=== PATIENT | female | born 1965 | race Caucasian/White ===

== ENCOUNTER 2019-05-27 01:08 | Outpatient (CLI) | payer MEDICAID, SELFPAY ==
--- NOTE | 2019-05-27 14:35 | DI.MRI_ITS ---
SYMPTOMS/DIAGNOSIS: LOW BACK AND TAILBONE PAIN X 6 YEARS, M54.5, BILATERAL HIP PAIN LUMBAR MRI: Sagittal T1 and T2, and sagittal STIR, and axial T1 and T2, and axial MSMA and T1 coronal pulse sequences were performed. The bony signal is unremarkable. Diminished signal is noted in the lumbar discs, compatible with partial desiccation. At L1-2, there is no evidence of a disc herniation. There are mild facet joint degenerative changes and no evidence of spinal stenosis. At L2-3, there is no evidence of a disc herniation, mild facet joint DJD is identified and there is no evidence of spinal stenosis. At L3-4, there is no evidence of a disc herniation. Mild facet joint DJD is identified and there is no evidence of spinal stenosis. At L4-5, there is no disc herniation. There are moderate facet joint degenerative changes and no evidence of spinal stenosis. At L5-S1, there is no evidence of a disc herniation. Moderately severe DJD involving the facet joints is identified and there is no evidence of significant spinal stenosis. There is no intrinsic abnormality involving the lower dorsal cord, conus or filum terminale. SUMMARY: Findings consistent with degenerative disc disease and DJD as described above. There is no evidence of spinal stenosis.
== END 2019-05-27 01:28 ==
PROVIDERS: PCP Nurse Practitioner Family; Visit Provider Orthopaedic Surgery
DX: M54.5 Low back pain (principal); M25.551 Pain in right hip; M25.552 Pain in left hip; M51.37 Other intervertebral disc degeneration, lumbosacral region; M47.817 Spondylosis without myelopathy or radiculopathy, lumbosacral region
CPT/HCPCS: 72148

== ENCOUNTER 2023-04-05 00:08 | Outpatient (CLI) | payer MEDICAID, SELFPAY ==
--- NOTE | 2023-04-05 14:45 | DI.CTLCSR_ITS ---
Exam(s) CT CHEST LUNG CANCER SCREEN EXAM: CT CHEST LUNG CANCER SCREEN CLINICAL HISTORY: FORMER SMOKER, Z87.891 TECHNIQUE: Imaging Protocol: Axial computed tomography images with coronal and sagittal reformatted images were created and reviewed COMPARISON: No exams were available for comparison FINDINGS: Tracheobronchial tree: Patent where visualized. Pulmonary parenchyma: No consolidation or dominant measurable mass. No architectural distortion. Calc ified granuloma are present. There is mild atelectasis in the right lung base. Lung Nodules: There is a 3 mm nodule in the right lower lobe. Mediastinum and Madisyn: No dominant adenopathy or fluid collection. The esophagus is unremarkable. Thyroid gland: Unremarkable. Lymph nodes: Unremarkable. Pleura: No effusion or pneumothorax. Heart: The heart is not dilated. No coronary artery calcifications are seen. No pericardial effusion . Aorta: Thoracic aorta non-dilated.Atherosclerosis. Upper abdomen: Unremarkable. Soft Tissues: Unremarkable. Bones: Within normal limits. IMPRESSION: 3 mm right lower lobe pulmonary nodule. Lung RADS Cat 2 - Benign Appearance / Behavior: Nodules with a very low likelihood of becoming a clin ically active cancer due to size or lack of growth Lung-RADS 1.0 CATEGORIES: Category 0 - Prior chest CT exam(s) being located for comparison. Category 1 - Annual screening in 12 months. No nodules or definitely benign nodules. Category 2 - Annual screening in 12 months. Benign appearance. Nodules with low likelihood of becomin g active cancer. Category 3 - 6-month follow-up. Probably benign. Short-term follow-up suggested. Nodules with low lik elihood of becoming active cancer. Category 4A - 3-month follow-up and CT/PET if >8 mm in size. Suspicious finding. Findings which requi re additional testing. Category 4B - Findings which require additional testing and tissue sampling. Suspicious finding. Category 4X - Category 3 or 4 nodules with additional features or imaging findings that increases the suspicion of malignancy. Modifier S- Potentially clinically significant finding. (Non lung cancer) RADIATION DOSE DELIVERED: 75.42mGy.cm Total DLP 75.42mGy.cmTotal DLP DATA REPOSITORY: All CT scans at this facility are submitted to the National Radiology Data Registry (NRDR) Dose Index Registry (DIR) with the [employer] ([employer]). RADIATION OPTIMIZATION: All CT scans at this facility use at least one of these dose optimization te chniques: automated exposure control; mA and/or kV adjustment per patient size (includes targeted exa ms where dose is matched to clinical indication); or iterative reconstruction.
== END 2023-04-05 00:28 ==
LOC: DI 00:09
PROVIDERS: PCP Nurse Practitioner Family; Visit Provider Family Medicine
DX: Z12.2 Encounter for screening for malignant neoplasm of respiratory organs (principal); Z87.891 Personal history of nicotine dependence; R91.1 Solitary pulmonary nodule
CPT/HCPCS: 71271

== ENCOUNTER 2024-06-19 00:11 | Outpatient (CLI) | payer MEDICAID, SELFPAY ==
--- OUTSIDE RECORDS SUMMARY | 2024-06-19 00:17 | XMS_ITS | Encounter Summary ---
[place] [address] Care Team Providers Care Creative Specialist Name Role Phone Mikayla Aquino MD Primary Care Provider [phone] Encounter Details Date Type Department Care Team (Latest Contact Info) Description 05/21/2024 Specialty [place] [id number] Fabio Walton, [facility] Refill Coordination - 28 day recurrence (adalimumab) for Rheumatology Social History Tobacco Use Types Packs/Day Years Used Date Smoking Tobacco: Former Cigarettes Smokeless Tobacco: Never Comments:8 years ago Sex and Gender Information Value Date Recorded Sex Assigned at Not on file Gender Identity Not on file Sexual Orientation Not on file documented as of this encounter Progress Notes * Kali Vasquez, [facility] - 05/21/2024 7:49 AM EDT Clinical Management Plan: Refill Specialty Pharmacy Consultation; Kali Vasquez [facility] Comprehensive Medication Management (CMM) Ms. Crystal Felder is a 59 y.o. (1965) female who was contacted in regard to a specialty medication refill reminder. The patient requested a refill of Adalimumab. A review of the medication therapy was performed. The medication was refilled as scheduled, and all medication related questions andconcerns were addressed. The specialty pharmacy staff will follow up with the patient 5-7 days prior to next refill. Was a change made to the Care Plan: No Medication Therapy Recommendations No medication therapy recommendations to display Allergies and Drug intolerance: Allergies Allergen Reactions Bupropion Hcl Other reaction(s): anxiety, panic Citalopram Nausea Only Other reaction(s): possible nausea Nabumetone Rash Other reaction(s): rash Medication Reconciliation Discrepancies (compared to [facility] med list) No Review Flowsheet 05/29/2024 3:43 PM Assessment What is the name of the specialty medication you are refilling? Humira Are you taking any new medications? No Any new medical conditions? No Any new allergies? No Any new side effects that are bothersome? No Any missed doses since your last fill? 0 Would you like a pharmacist to reach out to you to answer any questions? No What date will you need this fill by? 05/31/2024 Adherence: Any missed doses? No Patient understands no changes to current drug regimen were made. aKli Vasquez RPH 05/29/24 3:43 PM documented in this encounter Plan of Treatment Upcoming Encounters Date Type Department Care Team (Late st Contact Info) Description 07/21/2024 1:00 PM EDT [place] [address] [facility] [place] [address] documented as of this encounter Goals Goal Patient Goal Type Associated Problems Recent Progress Patient-Stated? Author [facility] Medication Compliance and Understanding Patient Facing Action Plan Not on track( 11:36 AM EDT) No Mckinley Noel [facility] Note: Reduce Joint damage and flairs, measured by number of office visits for flairs/ x-rays, follow up every 3-6 months Patient's specific desired goal: Patient Facing Action Plan On track( 11:40 AM EDT) No Viri Benítez [facility] Note: Goal(s): Reduce pain in affected joints by 50% by the next follow up Measured by: pain scale Time-frame: 10 months documented as of this encounter Visit Diagnoses Not on filedocumented in this encounter Care Teams Creative Specialist Relationship Specialty Start Date End Date Mikayla Aquino MD PCP - General Family Medicine 07/06/20 documented as of this encounter
--- OUTSIDE RECORDS SUMMARY | 2024-06-19 00:17 | XMS_ITS | Encounter Summary ---
[facility] [address] Care Team Providers Care Veterinary Dentist Name Role Phone Mikayla Aquino MD Primary Care Provider [phone] Encounter Details Date Type Department Care Team (Latest Contact Info) Description 04/23/2024 Specialty Pharmacy [place] [phone] Kali Vasquez, [facility] Refill Coordination - 28 day recurrence (adalimumab) for Rheumatology, Clinical Assessment - 10 month recurrence (adalimumab) for Rheumatology Social History Tobacco Use Types Packs/Day Years Used Date Smoking Tobacco: Former Cigarettes Smokeless Tobacco: Never Comments:8 years ago Sex and Gender Information Value Date Recorded Sex Assigned at Not on file Gender Identity Not on file Sexual Orientation Not on file documented as of this encounter Progress Notes * Lottie Bedoya [facility] - 04/23/2024 8:03 AM EDT Clinical Management Plan: Refill Specialty Pharmacy Consultation; Lottie Bedoya [facility] Comprehensive Medication Management (CMM) Ms. Crystal Feledr is a 59 y.o. (1965) female who was contacted in regard to a specialty medication refill reminder. The patient requested a refill of Humira. A review of the medication therapy was performed. The medication was refilled as scheduled, and all medication related questions and concerns were addressed. The specialty pharmacy staff will follow up with the patient 5-7 days prior tonext refill. Was a change made to the Care Plan: No Medication Therapy Recommendations No medication therapy recommendations to display Allergies and Drug intolerance: Allergies Allergen Reactions Bupropion Hcl Other reaction(s): anxiety, panic Citalopram Nausea Only Other reaction(s): possible nausea Nabumetone Rash Other reaction(s): rash Medication Reconciliation Discrepancies (compared to [facility] med list) No Review Flowsheet 04/27/2024 1:27 AM Assessment What is the name of the specialty medication you are refilling? Humira Are you taking any new medications? No Any new medical conditions? No Any new allergies? No Any new side effects that are bothersome? No Any missed doses since your last fill? 0 How many doses do you have remaining on hand? 0 Would you like a pharmacist to reach out to you to answer any questions? No What date will you need this fill by? 05/03/2024 Adherence: Any missed doses? No Patient understands no changes to current drug regimen were made. Lottie Bedoya RPH 04/27/24 9:11 AM documented in this encounter Plan of Treatment Upcoming Encounters Date Type Department Care Team (Late st Contact Info) Description 07/21/2024 1:00 PM EDT Office [place] [address] Isaiah Mcpherson MD [facility] [place] [address] documented as of this encounter Goals Goal Patient Goal Type Associated Problems Recent Progress Patient-Stated? Author [facility] Medication Compliance and Understanding Patient Facing Action Plan Not on track( 11:36 AM EDT) No Mckinley Noel [facility] Note: Reduce Joint damage and flairs, measured by number of office visits for flairs/ x-rays, follow up every 3-6 months Patient's specific desired goal: Patient Facing Action Plan On track( 024 11:40 AM EDT) No Viri Benítez [facility] Note: Goal(s): Reduce pain in affected joints by 50% by the next follow up Measured by: pain scale Time-frame: 10 months documented as of this encounter Visit Diagnoses Not on filedocumented in this encounter Care Teams Veterinary Dentist Relationship Specialty Start Date End Date Mikayla Aquino MD PCP - General Family Medicine 07/06/20 documented as of this encounter
--- OUTSIDE RECORDS SUMMARY | 2024-06-19 00:17 | XMS_ITS | Clinical Summary ---
Author Organization Formerly [facility] Address [facility] [place] [address] Care Team Providers Care Company Marker Name Role Phone Mikayla Aquino MD Primary Care Provider [phone] Allergies Active Allergy Reactions Criticality Noted Date Comments Bupropion Hcl 03/29/2022 Other reaction(s): anxiety, panic Citalopram Nausea Only 03/29/2022 Other reaction(s): possible nausea Nabumetone Rash 03/29/2022 Other reaction(s): rash Medications Medication Sig Dispensed Refills Start Date End Date Status DULoxetine DR (Cymbalta) 60 mg Capsule, Delayed Release(E.C.) Take 60 mg by mouth daily. 01/29/2022 Active metHOTREXate (TrexalL) 2.5 mg tablet TAKE EIGHT TABLETS BY MOUTH ONCE WEEKLY 104 tablet 3 04/12/2023 Active rOPINIRole (Requip) 0.5 mg tabletIndications :GUEVARA (obstructive sleep apnea),RLS (restless legs syndrome) TAKE 1-3 TABLETS BY MOUTH AT BEDTIME NEEDED 90 tablet 5 04/26/2023 Active folic acid (Vitamin B9) 1 mg tablet TAKE ONE TABLET BY MOUTH EVERY DAY 90 tablet 3 07/15/2023 Active acetaminophen (TylenoL) 325 mg tablet Take 650 mg by mouth every 6 hours as needed. Active Adalimumab (Humira Pen) 40 mg/0.8 mL Pen Injector Kit Inject 0.8 mLs subcutaneously every 14 days. 1 kit 5 02/12/2024 Active predniSONE (Deltasone) 5 mg tabletIndications :Rheumatoid arthritis involving multiple sites with positive rheumatoid factor 6 tabs X 2 days, then 5 tabs x 2 days, then 4 tabs x 2 days, then 3 tabs x 2 days, then 2 tabs x 2 days, then 1 tab x 2 days. 42 tablet 1 05/12/2024 Active Active Problems Patient Care Coordination No te Formatting of this note migh t be different from the original. Patient due for Prevnar vaccine; immunization history reconciled. - Louann Duffy LPN 08/14/2013 Problem Noted Date Diagnosed Date Coccydynia 06/29/2019 Chronic throat pain 09/24/2017 Chronic pain of both knees 09/11/2017 Sacro-iliac pain 09/05/2016 Pain in right hip 11/15/2015 Primary osteoarthritis of both hips 11/15/2015 High risk medication use 11/09/2015 Costochondritis 05/17/2015 Perimenopausal 11/16/2014 Myalgia 11/16/2014 Enthesopathy of hip region 11/19/2013 Anxiety 08/13/2013 Uveitis 07/24/2013 Fibromyalgia 12/20/2011 Depression 12/20/2011 Iron deficiency anemia due to chronic blood loss 12/20/2011 Sleep disturbance 12/20/2011 Rheumatoid arthritis 08/16/2011 Encounters Date Type Department Care Team Description 05/21/2024 Specialty [place] [address] Fabio Walton, [facility] Refill Coordination - 28 day recurrence (adalimumab) for Rheumatology 05/15/2024 Specialty Pharm[place] [phone] Viri Benítez, [facility] Clinical Assessment - 10 month recurrence (adalimumab) for Rheumatology 05/12/2024 Orders [place] [address] Carolina Conley, Rheumatoid arthritis involving multiple sites with positive rheumatoid factor 05/12/2024 Refill [place] [address] Esther Armstrong, RN Rheumatoid arthritis involving multiple sites with positive rheumatoid factor 05/08/2024 11:00 PM EDT - 05/08/2024 11:59 PM EDT Hospital Encounter [facility] [address] [place] [phone] Ollie East MD Discharge Disposition: Home 04/23/2024 Specialty [place] [phone] Kali Vasquez, [facility] Refill Coordination - 28 day recurrence (adalimumab) for Rheumatology, Clinical Assessment - 10 month recurrence (adalimumab) for Rheumatology 03/19/2024 Specialty Pharmacy [place] [phone] Abelino Sarmiento, [facility] Refill Coordination - 28 day recurrence (adalimumab) for Rheumatology from Last 3 Months Immunizations Name Administration Dates Next Due Influenza PF, Split 09/16/2015,08/11/2014,2012 Influenza Quadrivalent, Preservative Free 2018 Pneumococcal Polysaccharide (Pneumovax 23) 02/18 TD Adult 02/18/2006 Tuberculin Skin Test, PPD 12/28/2010 Social History Tobacco Use Types Packs/Day Years Used Date Smoking Tobacco: Former Cigarettes Smokeless Tobacco: Never Tobacco Cessation:Counseling Given: Not Answered Comments:8 years ago Sex and Gender Information Value Date Recorded Sex Assigned at Not on file Gender Identity Not on file Sexual Orientation Not on file Last Filed Vital Signs Vital Sign Reading Time Taken Comments Blood Pressure 136/73 01/15/2024 12:59 PM EDT Pulse 70 01/15/2024 12:59 PM EDT Temperature 36.8 ??C (98.2 ??F) 01/15/2024 1 2:59 PM EDT Respiratory Rate 12 01/15/2024 12:5 9 PM EDT Oxygen Saturation 98% 01/15/2024 12: 59 PM EDT Inhaled Oxygen Concentration - - Weight 73.4 kg (161 lb 12.8 oz) 024 12:59 PM EDT w/shoes Height 157.5 cm (5' 2) 07/17/2023 1:09 PM EDT Body Mass Index 29.59 07/17/2023 1:09 PM EDT Plan of Treatment Upcoming Encounters Date Type Department Care Team (Late st Contact Info) Description 07/21/2024 1:00 PM EDT Office Visit [place] [phone] Isaiah Mcpherson MD [facility] [place] [place] [address] Health Maintenance Due Date Last Done Comments CT Colonography 1963 FIT DNA 1963 FIT 1963 Sigmoidoscopy (10 year) with FIT yearly 1963 Sigmoidoscopy 1963 HIV screen 1981 Hepatitis C Screening 1981 Tdap adult 1982 HPV test 1993 PAP Smear 1993 Breast Cancer Share Decision Needed 2003 Zoster vaccine (1 of 2) 2013 Colonoscopy 06/20/2014 06/20/2009 (See prior EHR) Colorectal Cancer Screening 06/20/2014 Tetanus vaccine 02/19/2016 02/18/2006 Advance Directive 2018 Covid-19 Vaccine ( - 2022-2 4 season) 2023 Influenza (Flu) vaccine (1 o f 1 - Influenza standard series) 06/28/2024 08/18/2019, 09/16/2015, 08/11/2014, Additional history exists Breast Cancer screening 03/22/2025 03/22/20, 03/22/2023, 08/09/2021, Additional history exists Diabetes Screening (HgbA1C o r Glucose) 01/14/2027 01/15/2024, 07/17/2023, 10/31/2022, Additional history exists Goals Goal Patient Goal Type Associated Problems Recent Progress Patient-Stated? Author DH Home Medication Compliance and Understanding Patient Facing Action Plan Not on track( 11:36 AM EDT) No Mckinley Noel [facility] Note: Reduce Joint damage and flairs, measured by number of office visits for flairs/ x-rays, follow up every 3-6 months Patient's specific desired goal: Patient Facing Action Plan On track( 11:40 AM EDT) No Viri Benítez [facility] Note: Goal(s): Reduce pain in affected joints by 50% by the next follow up Measured by: pain scale Time-frame: 10 months Procedures Procedure Name Priority Date/Time Associated Diagnosis Comments URINE CULTURE Routine 05/09/2024 1:03 AM EDT BLOOD CULTURE Routine 05/08/2024 11:55 PM EDT BLOOD CULTURE Routine 05/08/2024 11:36 PM EDT ACUTE TICK BORNE INFECTION PANEL Routine 05/08/2024 10:45 PM EDT COMPREHENSIVE METABOLIC PANEL Routine 01/15/2024 1:55 PM EDT High risk medication use Rheumatoid arthritis involving multiple sites with positive rheumatoid factor MAMMO SCREENING CAD BILATERAL Routine 03/22/2023 1:20 PM EDT from Last 3 Months or Most Recently Relevant to Health Maintenance Results * (ABNORMAL) Urine culture (05/09/2024 1:03 AM EDT) Urine Culture 10,000-49,000 cfu/ml mixed mucosal laisha including 1,000-9,000 cfu/ml Beta Hemolytic Streptococci, Group B Note: Culture shows multiple bacterial species suggesting mucosal contamination. (A) [facility] Organism Beta Hemolytic Streptococci, Group B(A) [facility] Urine 05/09/2024 1:03 AM EDT 05/09/2024 12:54 PM EDT Narrative Resulting Agency Comment Spec In Lab Ollie East MD MICROBIOLOGY - [facility] ORDERABLES [facility] [place] [address] * Blood culture (05/08/2024 11:55 PM EDT) Only the most recent of2 resultswithin the time period is included. Blood Culture No growth at 5 days. [facility] Blood STRUCTURE OF LEFT UPPER LIMB / Unknown 05/08/2024 11:55 PM EDT 05/09/2024 12:58 PM EDT Comment:#2 Narrative Resulting Agency Comment Spec In Lab Ollie East MD MICROBIOLOGY - BL OOD ORDERABLES [facility] [place] [address] * Acute Tick Borne Infection Panel (05/08/2024 10:45 PM EDT) Anaplasma phagocytophilum PCR Not Detected Not Detected [facility] Comment: INTERPRETATION: A positive result indicates DNA was detected from Anaplasma phagocytophilum. A negative result indicates the absence of any detectable DNA from Anaplasma phagocytophilum. METHODS: This test was performed using multiplex real-time PCR to interrogate DNA isolated from whole blood for the groEL gene found in Anaplasma phagocytophilum. The sensitivity of the assay is approximately 10 genome equivalents per PCR reaction. LIMITATIONS AND DISCLAIMERS: Although unlikely, rare variants (known or unknown), have the potential to interfere with the performance of this test, producing false negative or false positive results. Additionally, it is possible that this test may provide positive results for species closely related to the ones tested for in this assay. When results are not consistent with other clinical observations or test results, additional testing should be considered. This test detects DNA sequences and cannot discriminate between live and organisms. This test was developed and its performance characteristics determined by the [facility] at [facility] It has not been cleared or approved by the FDA. The laboratory is regulated under CLIA as qualified to perform high-complexity testing. This test is used for clinical purposes. It should not be regarded as investigational or for research. Ehrlichia chaffeensis PCR Not Detected Not Detected [facility] Comment: INTERPRETATION: A positive result indicates DNA was detected from Ehrlichia chaffeensis. A negative result indicates the absence of any detectable DNA from Ehrlichia chaffeensis. METHODS: This test was performed using multiplex real-time PCR to interrogate DNA isolated from whole blood for the 16S rRNA gene found in Ehrlichia chaffeensis. The sensitivity of the assay is approximately 10 genome equivalents per PCR reaction. LIMITATIONS AND DISCLAIMERS: Although unlikely, rare variants (known or unknown), have the potential to interfere with the performance of this test, producing false negative or false positive results. Additionally, it is possible that this test may provide positive results for species closely related to the ones tested for in this assay. When results are not consistent with other clinical observations or test results, additional testing should be considered. This test detects DNA sequences and cannot discriminate between live and organisms. This test was developed and its performance characteristics determined by the [facility] at [facility]. It has not been cleared or approved by the FDA. The laboratory is regulated under CLIA as qualified to perform high-complexity testing. This test is used for clinical purposes. It should not be regarded as investigational or for research. Babesia microti PCR Not Detected Not Detected [facility] Comment: INTERPRETATION: A positive result indicates DNA was detected from Babesia microti. A negative result indicates the absence of any detectable DNA from Babesia microti. METHODS: This test was performed using multiplex real-time PCR to interrogate DNA isolated from whole blood for the 18S rRNA gene found in Babesia microti. The sensitivity of the assay is approximately 10 genome equivalents per PCR reaction. LIMITATIONS AND DISCLAIMERS: Although unlikely, rare variants (known or unknown), have the potential to interfere with the performance of this test, producing false negative or false positive results. Additionally, it is possible that this test may provide positive results for species closely related to the ones tested for in this assay. When results are not consistent with other clinical observations or test results, additional testing should be considered. This test detects DNA sequences and cannot discriminate between live and organisms. This test was developed and its performance characteristics determined by the [facility] at [facility]. It has not been cleared or approved by the FDA. The laboratory is regulated under CLIA as qualified to perform high-complexity testing. This test is used for clinical purposes. It should not be regarded as investigational or for research. Borrelia miyamotoi PCR Not Detected Not Detected [facility] Comment: INTERPRETATION: A positive result indicates DNA was detected from Borrelia miyamotoi. A negative result indicates the absence of any detectable DNA from Borrelia miyamotoi. METHODS: This test was performed using multiplex real-time PCR to interrogate DNA isolated from whole blood for the flaB gene found in Borrelia miyamotoi. The sensitivity of the assay is approximately 10 genome equivalents per PCR reaction. LIMITATIONS AND DISCLAIMERS: Although unlikely, rare variants (known or unknown), have the potential to interfere with the performance of this test, producing false negative or false positive results. Additionally, it is possible that this test may provide positive results for species closely related to the ones tested for in this assay. When results are not consistent with other clinical observations or test results, additional testing should be considered. This test detects DNA sequences and cannot discriminate between live and organisms. This test was developed and its performance characteristics determined by the [facility] ([facility] at [facility]. It has not been cleared or approved by the FDA. The laboratory is regulated under CLIA as qualified to perform high-complexity testing. This test is used for clinical purposes. It should not be regarded as investigational or for research. Blood 05/08/2024 10:4 5 PM EDT 05/09/2024 2:25 PM EDT Narrative Resulting Agency Comment Spec In Lab Ollie East MD MOLECULAR ORDERAB LES [facility] [place] [address] * Comprehensive metabolic panel (non-fasting) (01/15/2024 1:55 PM EDT) Glucose 92 65 - 199 mg/dL [facility] Comment:Diabetes: >=200 mg/d L plus symptoms Blood Urea Nitrogen 12 8 - 18 mg/dL [facility] Creatinine 0.78 0.70 - 1.20 mg/dL [facility] Sodium 143 135 - 145 mmol/L [facility] Potassium 4.7 3.5 - 5.0 mmol/L [facility] Comment: Please note: ??Patients with WBC >100,000 may have falsely elevated Potassium levels. ??For accurate Potassium quantification in these patients send serum separator tube (gold top) for subsequent determinations. ??Contact the Clinical Chemistry Laboratory if there are any questions. Chloride 104 98 - 107 mmol/L [facility] Carbon Dioxide 29 22 - 31 mmol/L [facility] Anion Gap 10 5 - 15 mmol/L [facility] Calcium 9.5 8.5 - 10.5 mg/dL [facility] Protein, Total 7.1 6.1 - 8.0 g/dL [facility] Albumin 4.3 3.2 - 5.2 g/dL [facility] Aspartate Aminotransferase 15 0 - 30 unit/L [facility] Alanine Aminotransferase 11 0 - 30 unit/L [facility] Alkaline Phosphatase 64 35 - 105 unit/L [facility] Bilirubin, Total 0.3 0.2 - 1.3 mg/dL [facility] Est Glomerular Filtration Rate 87 >=60 mL/min/1. 73 m?? [facility] Comment: This patient's estimated GFR was calculated using the 2020 CKD-EPI equation. The estimated GFR can vary from the measured GFR by up to 30% in the absence of rapidly changing kidney function. Assessment of the estimated GFR is not appropriate when creatinine concentrations are rapidly changing. For clinical situations in which a more precise estimate of GFR is necessary, consider alternative methods of GFR estimation such as a 24-hour urine creatinine clearance. Assignment of CKD stage 1-5 for patients with an eGFR near the transition point between stages may be based on clinical assessment of muscle mass and symptoms in addition to eGFR. Blood 01/15/2024 1:55 PM EDT 01/15/2024 2:05 PM EDT Narrative Resulting Agency Comment Spec In Lab Isaiah Mcpherson MD CHEMISTRY ORDERAB LES [facility] [place] [address] * Mammo Screening Cad Bilateral (03/22/2023 1:20 PM EDT) PT CLASS O RAD ADMITDTTM RAD PT RAD INFO [id number]^HO MAN^FAY^F RAD EXAM DESC MADDSC^SCREEN MAMMO BL INCLUDES CAD^RIS RAD Anatomical Region Laterality Modality Breast Bilateral Mammography Impressions 03/26/2023 2:43 PM EDT BI-RADS ??category 1: negative- No mammographic evidence of malignancy. RECOMMENDATION: * ??Regular screening mammograms starting between age 40 and 50 reduces the risk of from breast cancer. * ??All screening tests have both risks and benefits. These risks and benefits should be assessed for each individual patient through discussion with their provider to determine their preferred breast cancer screening schedule. * ??Women should report any breast changes to a health care provider right away. * ??Some women, because of their family history, a genetic tendency, or other factors, should be screened with annual breast MRI as well as with mammograms. (The number of women who fall into this category is very small). Patients and health care providers should discuss the history of each patient to decide if earlier screening and/or breast MRI are appropriate. * ??Screening should continue as long as a woman is in good health and is expected to live 10 years or longer. * ??Screening mammography may not detect 10-15% of breast cancers. Thank you for letting us participate in the care of this patient. ??If you are a health care provider and have any questions regarding this report, please contact the number below. ??For patients who have questions please contact the health career services officer that requested your imaging first. ? Electronically signed by: Yovany Wade MD, [facility] ([phone]), at 03/26/2023 2:43 PM Narrative 03/26/2023 2:43 PM EDT EXAMINATION: BREAST SCREEN TOMOSYNTHESIS BI, SCREEN MAMMO BL INCLUDES CAD CLINICAL HISTORY: screening mammo Family history of breast cancer: None Reproductive history: Parous No personal history of breast cancer. COMPARISON: Previous mammograms were reviewed. TECHNIQUE: ??Bilateral MLO and CC digital mammograms were obtained and reviewed with CAD. ?? 2-D and 3-D tomosynthesis images were obtained. FINDINGS: There are no suspicious microcalcifications, masses, or areas of distortion. No changes compared to prior studies. Breast density: There are scattered areas of fibroglandular density. Procedure Note Yovany Wade MD - 03/26/2023 EXAMINATION: BREAST SCREEN TOMOSYNTHESIS BI, SCREEN MAMMO BL INCLUDESCAD CLINICAL HISTORY: screening mammo Family history of breast cancer: None Reproductive history: Parous No personal history of breast cancer. COMPARISON: Previous mammograms were reviewed. TECHNIQUE: Bilateral MLO and CC digital mammograms were obtained andreviewed with CAD. 2-D and 3-D tomosynthesis images were obtained. FINDINGS: There are no suspicious microcalcifications, masses, or areasof distortion. No changes compared to prior studies. Breast density: There are scattered areas of fibroglandular density. IMPRESSION BI-RADS category 1: negative- No mammographic evidence of malignancy. RECOMMENDATION: * Regular screening mammograms starting between age 40 and 50 reduces therisk of from breast cancer. * All screening tests have both risks and benefits. These risks andbenefits should be assessed for each individual patient through discussion withtheir provider to determine their preferred breast cancer screening schedule. * Women should report any breast changes to a health care provider rightaway. * Some women, because of their family history, a genetic tendency, orother factors, should be screened with annual breast MRI as well as withmammograms. (The number of women who fall into this category is very small). Patientsand health care providers should discuss the history of each patient to decideif earlier screening and/or breast MRI are appropriate. * Screening should continue as long as a woman is in good health and is expected to live 10 years or longer. * Screening mammography may not detect 10-15% of breast cancers. Thank you for letting us participate in the care of this patient. If youare a health care provider and have any questions regarding this report,please contact the number below. For patients who have questions please contactthe health career services officer that requested your imaging first. Electronically signed by: Yovany Wade MD, [facility]([phone]), at 03/26/2023 2:43 PM Mikayla Aquino MD IMG MAMMO ORDERABLES from Last 3 Months or Most Recently Relevant to Health Maintenance Care Teams Company Marker Relationship Specialty Start Date End Date Mikayla Aquino MD PCP - General Family Medicine 07/06/20
--- OUTSIDE RECORDS SUMMARY | 2024-06-19 00:17 | XMS_ITS ---
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 Notes/Report: Received Date: NON-FASTING GLUCOSE 63 65-99 mg/dL Fasting reference interval UREA NITROGEN (BUN) 17 7-25 mg/dL CREATININE 0.91 0.50-1.05 mg/dL EGFR 72 > OR = 60 mL/min/1.73m2 BUN/CREATININE RATIO SEE NOTE: 04-18 (calc) Not Reported: BUN and Creatinine are within reference range. SODIUM 138 135-146 mmol/L POTASSIUM 4.1 3.5-5.3 mmol/L CHLORIDE 98 98-110 mmol/L CARBON DIOXIDE 29 20-32 mmol/L CALCIUM 9.4 8.6-10.4 mg/dL REASON FOR VISIT ED follow up Medications Medication SIG (Take, Route, Frequency, Duration) Notes Start Date End Date Status Humira Pen 40 MG/0.8ML inject 40 mg Subcutaneous every 14 days twice a month Active Tylenol 325 mg 2 tablet Orally at h s prn Active Methotrexate 2.5 MG 8 tablets Orally Onc e per week 15 mg per week Active rOPINIRole HCl 0.5 MG 1-3 tablets Orally once a night as needed Active Folic Acid 5 MG 1 capsule Orally Onc e a day Active Sertraline HCl 50 MG 1 tablet Orally Onc e a day for 30 days 04/20/2024 Active Social History Tobacco Use: Social History Observation Description Date Details (start date - stop date) Former Smoker NA - NA Sex Assigned At : Social History Observation Description Sex Assigned At Female Tobacco Control (Standard) Question Answer Notes Tobacco use: Former smoker Vital Signs Temperature 96.1 degrees Fahrenheit 05/18/20 Heart Rate 68 BPM 05/18/2024 Blood pressure systolic 138 mmHg 05/18/20 Blood pressure diastolic 80 mmHg 024 Oximetry 98 % 05/18/2024 Height 62 in 05/18/2024 Weight 162.4 lbs 05/18/2024 BMI 29.7 kg/m2 05/18/2024 Encounters Encounter Location Date Provider Diagnosis [address] [address] 05/18/2024 Mikayla Aquino Rheumatoid arthriti s, involving unspecified site, unspecified rheumatoid factor presence M06.9 ; Hypokalemia E87.6 ; Fibromyalgia M79.7 and Rotator cuff tendonitis, right M75.81 Assessments Encounter Date Diagnosis (ICD Code) Assessment Notes Treatment Notes Treatment Clinical Notes 05/18/2024 Rheumatoid arthritis, involving unspecified site, unspecified rheumatoid factor presence (ICD-10 - M06.9) 05/18/2024 Hypokalemia (ICD-10 - E87.6) Venipuncture with 23g from L AC on 1st attempt. Patient tolerated procedure well. Pressure bandage applied. JUANA Nolen 05/18/2024 Fibromyalgia (ICD-10 - M79.7) 05/18/2024 Rotator cuff tendonitis, right (ICD-10 - M75.81) Plan Of Treatment Treatment Notes Assessment Notes Hypokalemia Venipuncture with 23 g from L AC on 1st attempt. Patient tolerated procedure well. Pressure bandage applied. JUANA Nolen Next Appt Details Follow Up: As Scheduled, [place] son: Progress Notes * Paty EDMONDS:1965 (59 yo F)Acc No.[id number]:05/18/2024 Progress Notes Patient:?Crystal EDMONDS Provider:?Mikayla Aquino M.D. :1965???Age:59 Y???Sex:Female D ate:05/18/2024 Address:[address] [place], [id number] Subjective: * Chief Complaints: * ???ED follow up * HPI: ???INTERIM HISTORY::? The patient is a 59-year-old female who presents today for an ED follow- up. She was seen at [facility] ED on 05/08/2024 with c/o neck pain and joint swelling/pain. Pt was started on Keflex for positive urine dip, but culture showed low colony count. Pt was also started on doxy for possible tick-borne illness, which has since been discontinued due to negative tick panel. Pt treated for hypokalemia, K+ 2.9, started on potassium supplement, which she is off currently. She was started on prednisone taper prescribed by her [employer] sales representative without any improvement in her symptoms. She had excellent response previously to MTX and Humira. She continues to have pain in the neck, shoulders and fingertips. She has tried ibuprofen without significant improvement. ???[place]::?Other Providers:?Has the patient seen any providers outside of [facility] [place] since their last appointment with us??Yes ?Who have you seen??[facility] ED * ROS:?See HPI above. * Medical History:? * Surgical History:?None * Hospitalization/Major Diagno stic Procedure:?None * Family History:?Mother: alijasmyne e, HTN, hypothyroid, generalized arthritis, anxiety, diagnosed with Hypertension, Unspecified heart disease.?Father: 76 yrs, Alzheimer, COPD, CAD.?Siblings: 1 brother- depression, 1 sister- asthma, GERD.? * Social History:?TOBACCO USE:?Tobacco Control (Standard)?Tobacco use:?Former smoker ???Follows [facility]. * Medications:?TakingSertralin e HCl 50 MG Tablet 1 tablet Orally Once a day rOPINIRole HCl 0.5 MG Tablet 1-3 tablets Orally once a night as needed Folic Acid 5 MG Capsule 1 capsule Orally Once a day Tylenol(Acetaminophen) 325 mg Tablet 2 tablet Orally at hs prn Methotrexate 2.5 MG Tablet 8 tablets Orally Once per week , Notes to Pharmacist: 15 mg per weekHumira Pen(Adalimumab) 40 MG/0.8ML Pen-injector Kit inject 40 mg Subcutaneous every 14 days , Notes to Pharmacist: twice a monthTaking Sertraline HCl 50 MG Tablet 1 tablet Orally Once a day Taking rOPINIRole HCl 0.5 MG Tablet 1-3 tablets Orally once a night as needed Taking Folic Acid 5 MG Capsule 1 capsule Orally Once a day Taking Tylenol(Acetaminophen) 325 mg Tablet 2 tablet Orally at hs prn Taking Methotrexate 2.5 MG Tablet 8 tablets Orally Once per week , Notes to Pharmacist: 15 mg per weekTaking Humira Pen(Adalimumab) 40 MG/0.8ML Pen-injector Kit inject 40 mg Subcutaneous every 14 days , Notes to Pharmacist: twice a monthDiscontinuedKetorolac Tromethamine 10 MG Tablet 1 tablet with food or milk as needed Orally 4 times a day for 5 days, do not exceed 40mg/day and 5 day duration for all dose forms , stop date 05/18/2024oxycycline Hyclate 100 MG Capsule 1 capsule Orally 2 times a day for 10 days , stop date 05/18/2024Medication List reviewed and reconciled with the patientDiscontinued Ketorolac Tromethamine 10 MG Tablet 1 tablet with food or milk as needed Orally 4 times a day for 5 days, do not exceed 40mg/day and 5 day duration for all dose forms , stop date 05/18/2024iscontinued Doxycycline Hyclate 100 MG Capsule 1 capsule Orally 2 times a day for 10 days , stop date 05/18/2024Medication List reviewed and reconciled with the patient * Allergies:?Wellbutrin: anxie ty, panic - Side EffectsNabumetone: rash - Side EffectsSun: rash - Side EffectsCitalopram: possible nausea - Side Effectsno[Allergies Verified] Objective: * Vitals:?Temp:96.1F, HR:68BPM , BP:138/80mmHg, Oxygen Sat: 98 %, Height: 62 in, Weight: 162.4 lbs, BMI:29.7Index, [id number]. * Examination: ???General Examination: ?GENERAL APPEARANCE:?Pleasant affect.?MUSCULOSKELETAL:?Rheumatoid deformities throughout the hands with puffy distal fingerpads on two fingers on the left hand and on the right thumb..?SHOULDER:?No right shoulder girdle muscle tenderness. There is anterior capsule muscle tenderness. Marked pain with elevation even below 90 degrees. Marked limitation and pain on internal rotation. Unable to perform external rotation due to pain. Unable to perform impingement test..? Assessment: * Assessment: 1.?Rheumatoid arthritis, inv olving unspecified site, unspecified rheumatoid factor presence - M06.9 (Primary)???2.?Hypokalemia - E87.6???3.?Fibromyalgia - M79.7???4.?Rotator cuff tendonitis, right - M75.81??? Significant flare of RA, sup erimposed right rotator cuff tendonitis, which we injected with cortisone today. See procedure note below. The hypokalemia noted in the ED was unexplained. She is off supplements and we will recheck today. She has had a bad year with her RA, 3 to 4 prednisone tapers after previously having an excellent longstanding response to MTX and Humira. I have encouraged her to contact her [employer] sales representative, Dr. Mcpherson to discuss options for alternative therapies. The presumed UTI and presumed tick-borne illness diagnosed in the ED did not prove to be present and she has stopped those antibiotics. Plan: * Treatment: * Procedures:?Following verbal consent and sterile prep, using an anterior approach to the right shoulder, an intraarticular injection of lidocaine, Marcaine, and 80 mg of Depo Medrol, was injected without difficulty. Patient experienced prompt improvement in symptoms. ? * Procedure Codes:?81666 VENIP UNCTURE IH * Follow Up:?As Scheduled * * Sign off status: Completed true * Provider:?Mikayla Aquino M.D. Date:?05/18/20 24 Generated for Yeimy akhtar/Andressa/eTransmitting on:?06/19/2024 12:15 AM EDT History and Physical Notes * HPI (History of Present Illness) Category Sub-Category Detail Notes [place] [facility]: Other Providers: Has the patient seen any providers outside of [facility] [place] since their last appointment with us?: Yes ?Who have you seen?: [facility] ED Examination Category Sub-Category Detail Notes General Examination GENERAL APPEARANCE: Pleasant affect MUSCULOSKELETAL: Rheumatoid deformities throughout the hands with puffy distal finger pads on two fingers on the left hand and on the right thumb. SHOULDER: No right shoulder gi rdle muscle tenderness. There is anterior capsule muscle tenderness. Marked pain with elevation even below 90 degrees. Marked limitation and pain on internal rotation. Unable to perform external rotation due to pain. Unable to perform impingement test.
--- OUTSIDE RECORDS SUMMARY | 2024-06-19 00:17 | XMS_ITS ---
Author Organization [facility] Address [address], [place] [id number] Care Team Providers Care Leather Crafter Name Role Phone Mikayla Aquino Primary Care Provider Allergies Allergen (clinical drug ingredient) Drug/Non Drug Allergy documented on EMR Reaction Allergy Type Onset Date Status nabumetone Nabumetone rash Drug Allergy Activ e Wellbutrin anxiety, panic Drug Allergy A ctive citalopram Citalopram possible nausea Drug Allergy Active duloxetine Duloxetine Stomach Upset Drug Allergy A ctive ropinirole Ropinirole Stomach Upset Drug Allergy A ctive sertraline Sertraline Stomach Upset Drug Allergy A ctive Reason For Referral Reason FAXED TO [facility] LR -- [facility] Please contact our office within 7 days to notify LR of scheduled appointment Diagnosis 1 Sleep apnea (G47.30) Referral Organization [facility] Referring Provider First Name Mikayla Referring Provider Last Name Miles Referring Provider Speciality Family Med icine Referred Provider [facility] Dariela ter For, Sleep Disorders Referred Provider Specialty Sleep Medici ne General Notes Romana Brooks 05/2024 04:23:53 PM >FAXED TO [facility] Referral Priority Routine REASON FOR VISIT PE, Due for Lipids, Lung Cancer Screening, [place], HIV screening Medications Medication SIG (Take, Route, Frequency, Duration) Notes Start Date End Date Status Tylenol 325 mg 2 tablet Orally at h s prn Active Folic Acid 5 MG 1 capsule Orally Onc e a day Active Humira Pen 40 MG/0.8ML inject 40 mg Subcutaneous every 14 days twice a month Active Methotrexate 2.5 MG 8 tablets Orally Onc e per week 15 mg per week Active Social History Tobacco Use: Social History Observation Description Date Details (start date - stop date) Former Smoker 05/31/2009 - NA Sex Assigned At : Social History Observation Description Sex Assigned At Female SMOKING STATUS: Question Answer Notes Are you a: Former smoker Tobacco Control (Standard) Question Answer Notes Tobacco use: Former smoker When did you start smoking? 05/31/2009 Vital Signs Temperature 96.5 degrees Fahrenheit 06/04/20 Heart Rate 56 BPM 06/04/2024 Blood pressure systolic 122 mmHg 06/04/20 24 Blood pressure diastolic 80 mmHg 024 Oximetry 97 % 06/04/2024 Height 62 in 06/04/2024 Weight 162.6 lbs 06/04/2024 BMI 29.74 kg/m2 06/04/2024 Encounters Encounter Location Date Provider Diagnosis [address] [address] 06/04/2024 Mikayla Aquino Annual physical exa m Z00.00 ; Dietary counseling Z71.3 ; Rheumatoid arthritis, involving unspecified site, unspecified rheumatoid factor presence M06.9 ; Fibromyalgia M79.7 ; Pulmonary nodule R91.1 ; Chronic fatigue R53.82 ; Colon cancer screening Z12.11 ; Sleep apnea G47.30 and Former smoker Z87.891 Assessments Encounter Date Diagnosis (ICD Code) Assessment Notes Treat ment Notes Treatment Clinical Notes 06/04/2024 Annual physical exam (ICD-10 - Z00.00) 06/04/2024 Dietary counseling (ICD-10 - Z71.3) 06/04/2024 Rheumatoid arthritis, involving unspecified site, unspecified rheumatoid factor presence (ICD-10 - M06.9) 06/04/2024 Fibromyalgia (ICD-10 - M79.7) 06/04/2024 Pulmonary nodule (ICD-10 - R91.1) 06/04/2024 Chronic fatigue (ICD-10 - R53.82) 06/04/2024 Colon cancer screening (ICD-10 - Z12.11) 06/04/2024 Sleep apnea (ICD-10 - G47.30) 06/04/2024 Former smoker (ICD-10 - Z87.891) Plan Of Treatment Pending Test Test Name Order Date CT Chest Low Dose Lung Cancer Screening 06/04/2024 Referrals Referral Date Details 06/04/2024 06/04/2024, FAXED TO [facility] 06/04/24 LR -- [facility] Please contact our office within 7 days to notify [facility] of scheduled appointment, Sleep Disorders [facility] For Next Appt Details Follow Up: prn, Reason: Progress Notes * Mary EDMONDSOB:1965 (59 yo F)Acc No.[id number]:06/04/2024 Progress Notes Patient:?Crystal EDMONDS Provider:?Mikayla Aquino M.D. :1965???Age:59 Y???Sex:Female D ate:06/04/2024 Address:[address] [place], [id number] Subjective: * Chief Complaints: * ???PEDue for Lipids, Lung Ca ncer Screening, [place], HIV screening * HPI: ???INTERIM HISTORY::? The patient is a 59-year-old female who presents today for Annual PE. She was last seen 2 weeks ago when she was having a flare of her RA with a superimposed right rotator cuff tendonitis, which we injected with cortisone. She has had complete relief of her pain with cortisone but experienced same pain in her arm yesterday. She has had a bad year with her RA after previously being well controlled on MTX and Humira and since last visit, she was supposed to call regional geodetic advisor but did not.?The low potassium noted in the ER resolved on 05/18 labs. She states her arthritic pain is mild and manageable and does not limit her activities. She has pain in her hands mainly with twisting the jars. She has a self-diagnosis of sleep apnea. She reports that she sometimes sleeps in a chair and feels short of breath. She has daytime sleepiness and is fatigued all the time. She did have a sleep apnea test in 2019, which was negative. She is concerned about her weight today. She has gained some weight over the last few years, but has been stable since last 2 visits. She is unable to ride her bicycle due to her weakness and is inquiring about medications for weight loss. She gives an unusual history of two years of feeling nauseated and then sneezing and having the nausea go away. She believes that this is linked directly to the three SSRIs she has been on and is now on nothing. She acknowledges she could use medication for depression and anxiety. ???Depression Screening:?PHQ-9?Little interest or pleasure in doing things?More than half the days ?Feeling down, depressed, or hopeless?Not at all ?Trouble falling or staying asleep, or sleeping too much?More than half the days ?Feeling tired or having little energy?Nearly every day ?Poor appetite or overeating?More than half the days ?Feeling bad about yourself or that you are a failure, or have let yourself or your family down?Several days ?Trouble concentrating on things, such as reading the newspaper or watching television?Not at all ?Moving or speaking so slowly that other people could have noticed; or the opposite, being so fidgety or restless that you have been moving around a lot more than usual?Not at all ?Thoughts that you would be better off or of hurting yourself in some way?Not at all ?Total Score?10 ?Interpretation?Moderate Depression ???DIET/EXERCISE::?FOOD INSECURITY QUESTIONS?In the last 12 months, I worried whether my food would run out before I got money to buy more.?Never true ?In the last 12 months, the food that I bought just didn't last, and I didn't have money to get more.?Never true ?In the last 12 months, I couldn't afford to eat balanced meals.?Never true ?Do you receive any type of supplemental food assistance??No ???[place]::?OTHER PROVIDERS:?Has the patient seen any providers outside of [facility] since their last appointment with us??No ???PREVENTIVE MEDICINE::?WOMEN'S HEALTH INITIATIVE?Would you like to become in the next year??No . ???Depression Screening:?PHQ-2 (2015 Edition)?Little interest or pleasure in doing things??More than half the days ?Feeling down, depressed, or hopeless??Not at all ?Total Score?2 ???DENTAL::?DENTAL HOME ?Does Patient have dental home??Yes ?Has the patient been seen in the past six months??No ?Last dental appointment date?? * ROS:?Pertinent positives and negatives in HPI. * Medical History:? * Infrastructure Architect History:?Mammogram: ?Performed??Yes ?Performed:?03/22/2023 ?Result:?BIRADS Category 1 ?Next due:?03/22/2025 ???Pap Smear:Performed? Yes, Performed: 09/25/2018, Result: Normal, HPV testing performed? Yes, Result: Negative, Next Due: 09/25/2023.? * OB History:?GP:?:?2 ?Para:?full-term:,2 * Surgical History:?None * Hospitalization/Major Diagno stic Procedure:?None * Family History:?Mother: alijasmyne e, HTN, hypothyroid, generalized arthritis, anxiety, diagnosed with Unspecified heart disease, Hypertension.?Father: 76 yrs, Alzheimer, COPD, CAD.?Siblings: 1 brother- depression, 1 sister- asthma, GERD.? * Social History:?TOBACCO USE:?Tobacco Control (Standard)?Tobacco use:?Former smoker ?When did you start smoking??05/31/2009 ?SMOKING STATUS?Are you a:?Former smoker ???Follows [facility]. * Medications:?TakingFolic Aci d 5 MG Capsule 1 capsule Orally Once a day Tylenol(Acetaminophen) 325 mg Tablet 2 tablet Orally at hs prn Methotrexate 2.5 MG Tablet 8 tablets Orally Once per week , Notes to Pharmacist: 15 mg per weekHumira Pen(Adalimumab) 40 MG/0.8ML Pen-injector Kit inject 40 mg Subcutaneous every 14 days , Notes to Pharmacist: twice a monthTaking Folic Acid 5 MG Capsule 1 capsule Orally Once a day Taking Tylenol(Acetaminophen) 325 mg Tablet 2 tablet Orally at hs prn Taking Methotrexate 2.5 MG Tablet 8 tablets Orally Once per week , Notes to Pharmacist: 15 mg per weekTaking Humira Pen(Adalimumab) 40 MG/0.8ML Pen-injector Kit inject 40 mg Subcutaneous every 14 days , Notes to Pharmacist: twice a monthDiscontinuedSertraline HCl 50 MG Tablet 1 tablet Orally Once a day rOPINIRole HCl 0.5 MG Tablet 1-3 tablets Orally once a night as needed Medication List reviewed and reconciled with the patientDiscontinued Sertraline HCl 50 MG Tablet 1 tablet Orally Once a day Discontinued rOPINIRole HCl 0.5 MG Tablet 1-3 tablets Orally once a night as needed Medication List reviewed and reconciled with the patient * Allergies:?Wellbutrin: anxie ty, panic - Side EffectsNabumetone: rash - Side EffectsCitalopram: possible nausea - Side EffectsSertraline: Stomach UpsetRopinirole: Stomach UpsetDuloxetine: Stomach Upset Objective: * Vitals:?Temp:96.5F, HR:56BPM , BP:122/80mmHg, Oxygen Sat: 97 %, Height: 62 in, Weight: 162.6 lbs, BMI:29.74Index, Wt-k.75. * Examination: ???General Examination: ?GENERAL APPEARANCE:?Restricted affect.?EYES:?pupils equal, round, reactive to light, extraoccular motions intact..?EARS:?TMs lucent bilaterally with normal landmarks. No cerumen. .?ORAL CAVITY:?Moville, moist without lesions.?NECK/THYROID:?no submandibular or anterior cervical adenopathy.?HEART:?Regular rate and rhythm without murmur .?LUNGS:?clear in all odom.?BREASTS:?Mild diffuse tenderness.?ABDOMEN:?Mild diffuse tenderness.?SKIN:?no concerning nevi.?NEUROLOGIC:?alert and oriented, normal gait.?MUSCULOSKELETAL:?moves with ease to exam table.?EXTREMITIES:?pink, warm, without edema.?PERIPHERAL PULSES:?strong PT bilaterally.? Assessment: * Assessment: 1.?Annual physical exam - Z0 0.00 (Primary)???2.?Dietary counseling - Z71.3???3.?Rheumatoid arthritis, involving unspecified site, unspecified rheumatoid factor presence - M06.9???4.?Fibromyalgia - M79.7???5.?Pulmonary nodule - R91.1???6.?Chronic fatigue - R53.82???7.?Colon cancer screening - Z12.11???8.?Sleep apnea - G47.30???9.?Former smoker - Z87.891??? Crystal generally does not fe el well but is not open to making changes in terms of working less, sleeping more or calling her regional geodetic advisor or going back on an antidepressant. She agrees to doing a sleep study. She agrees to lung cancer screening, which will also recheck the low risk nodule noted last year.?I think she would benefit from antidepressants but she is unwilling to because of the GI symptoms mentioned above. She has a FIT test at home but needed instructions on its use today. She sees Dr. Mcpherson in June and will discuss joint pains then.? It is not clear whether her pain is mosty FM or RA. Plan: * Treatment: 2.?Former smoker?Imaging: CT Chest Low Dose Lung Cancer Screening * Procedure Codes:?80315 PT-FO CUSED HLTH RISK ASSMT * Follow Up:?prn * * Sign off status: Completed true * Provider:?Mikayla Aquino M.D. Date:?06/04/20 Generated for Yeimy akhtar/Andressa/eTransmitting on:?06/19/2024 12:15 AM EDT History and Physical Notes * HPI (History of Present Illness) Category Sub-Category Detail Notes Depression Screening PHQ-9 Little inte rest or pleasure in doing things: More than half the days Feeling down, depressed, or hopeless: No t at all Trouble falling or staying a sleep, or sleeping too much: More than half the days Feeling tired or having little energy: N early every day Poor appetite or overeating: More than h residential the days Feeling bad about yourself o r that you are a failure, or have let yourself or your family down: Several days Trouble concentrating on thi ngs, such as reading the newspaper or watching television: Not at all Moving or speaking so slowly that other people could have noticed; or the opposite, being so fidgety or restless that you have been moving around a lot more than usual: Not at all Thoughts that you would be b tanya off or of hurting yourself in some way: Not at all Total Score: 10 Interpretation: Moderate Depression DIET/EXERCISE: FOOD INSECURITY QUESTIONS In the last 12 months, I worried whether my food would run out before I got money to buy more. : Never true In the last 12 months, the f ood that I bought just didn't last, and I didn't have money to get more.: Never true In the last 12 months, I couldn't afford to eat balanced meals. : Never true Do you receive any type of supplemental food assistance?: No PREVENTIVE MEDICINE: WOMEN'S HEALTH INITIATIVE W ould you like to become in the next year?: No . [place]: OTHER PROVIDERS: Has the patient seen any providers outside of [facility] since their last appointment with us?: No DENTAL: DENTAL HOME Does Patient have dental tao e?: Yes ?Has the patient been seen in the past s ix months?: No ?Last dental appointment date?: Depression Screening PHQ-2 (2015 Edition) Little interest or pleasure in doing things?: More than half the days Feeling down, depressed, or hopeless?: N ot at all Total Score: 2 Examination Category Sub-Category Detail Notes General Examination GENERAL APPEARANCE: Restrict ed affect EYES: pupils equal, round, reactive to light, extraoccular motions intact. EARS: TMs lucent bilateral ly with normal landmarks. No cerumen. NECK/THYROID: no submandibular or anterior cervical adenopathy HEART: Regular rate and rhy thm without murmur LUNGS: clear in all odom ABDOMEN: Mild diffuse tendern ess NEUROLOGIC: alert and oriented, normal gait SKIN: no concerning nevi EXTREMITIES: pink, warm, without edema PERIPHERAL PULSES: strong PT bilaterall y BREASTS: Mild diffuse tendern ess MUSCULOSKELETAL: moves with ease to e xam table ORAL CAVITY: Moville, moist without lesions Consultation Request Notes Referral Date Referring Provider Referred Provider Not es 06/04/2024 Mikayla Aquino [facility] For, Sleep Disorders FAXED TO [facility] 06/04/24 LR -- [facility] Please contact our office within 7 days to notify [facility] of scheduled appointment
--- OUTSIDE RECORDS SUMMARY | 2024-06-19 00:17 | XMS_ITS | Encounter Summary ---
[place] [address] Care Team Providers Care Client Services Assistant Name Role Phone Mikayla Aquino MD Primary Care Provider [phone] Encounter Details Date Type Department Care Team (Latest Contact Info) Description 03/19/2024 Specialty [place] [phone] Abelino Sarmiento [facility] Refill Coordination - 28 day recurrence (adalimumab) for Rheumatology Social History Tobacco Use Types Packs/Day Years Used Date Smoking Tobacco: Former Cigarettes Smokeless Tobacco: Never Comments:8 years ago Sex and Gender Information Value Date Recorded Sex Assigned at Not on file Gender Identity Not on file Sexual Orientation Not on file documented as of this encounter Progress Notes * Kell England [facility] - 03/19/2024 3:29 PM EDT Clinical Management Plan: Refill Specialty Pharmacy Consultation; Kell England [facility] Comprehensive Medication Management (CMM) Ms. Crystal Felder [...] reaction(s): rash Medication Reconciliation Discrepancies (compared to [facility] med list) No Review Flowsheet 03/21/2024 10:58 PM Assessment What is the name of the specialty medication you are refilling? Humira Are you taking any new medications? No Any new medical conditions? No Any new allergies? No Any missed doses since your last fill? 0 Any new side effects that are bothersome? No What date will you need this fill by? 04/04/2024 Adherence: Any missed doses? No Patient understands no changes to current drug regimen were made. Kell England RPH 03/24/24 9:20 AM documented in this encounter Plan of Treatment Upcoming Encounters Date Type Department Care Team (Late st Contact Info) Description 07/21/2024 1:00 PM EDT [place] [address] Isaiah Mcpherson MD [facility] [place] [address] documented as of this encounter Goals Goal Patient Goal Type Associated Problems Recent Progress Patient-Stated? Author [facility] Medication Compliance and Understanding Patient Facing Action Plan Not on track( 024 11:36 AM EDT) No Mckinley Noel [facility] Note: Reduce Joint damage and flairs, measured by number of office visits for flairs/ x-rays, follow up every 3-6 months documented as of this encounter Visit Diagnoses Not on filedocumented in this encounter Care Teams Client Services Assistant Relationship Specialty Start Date End Date Mikayla Aquino MD PCP - General Family Medicine 07/06/20 documented as of this encounter
--- OUTSIDE RECORDS SUMMARY | 2024-06-19 00:17 | XMS_ITS | Encounter Summary ---
Author Organization [facility] [place] [address] [place] [address] Care Team Providers Care Signal Integrity Engineer Name Role Phone Mikayla Aquino MD Primary Care Provider [phone] Encounter Details Date Type Department Care Team (Late st Contact Info) Description 02/12/2024 [place] [address] Isaiah Mcpherson MD [facility] [place] [address] Social History Tobacco Use Types Packs/Day Years Used Date Smoking Tobacco: Former Cigarettes Smokeless Tobacco: Never Comments:8 years ago Sex and Gender Information Value Date Recorded Sex Assigned at Not on file Gender Identity Not on file Sexual Orientation Not on file documented as of this encounter Plan of Treatment Upcoming Encounters Date Type Department Care Team (Late st Contact Info) Description 07/21/2024 1:00 PM EDT [place] [address] Isaiah Mcpherson MD [facility] [place] [address] documented as of this encounter Goals Goal Patient Goal Type Associated Problems Recent Progress Patient-Stated? Author [facility] Medication Compliance and Understanding Patient Facing Action Plan Not on track( 024 11:36 AM EDT) No Mckinley Noel, [facility] Note: Reduce Joint damage and flairs, measured by number of office visits for flairs/ x-rays, follow up every 3-6 months documented as of this encounter Visit Diagnoses Not on filedocumented in this encounter Care Teams Signal Integrity Engineer Relationship Specialty Start Date End Date Mikayla Aquino MD PCP - General Family Medicine 07/06/20 documented as of this encounter
--- OUTSIDE RECORDS SUMMARY | 2024-06-19 00:17 | XMS_ITS | Encounter Summary ---
[place] [address] Care Team Providers Care Roof Plumber Name Role Phone Mikayla Aquino MD Primary Care Provider [phone] Encounter Details Date Type Department Care Team (Latest Contact Info) Description 05/15/2024 Specialty [place] [id number] Viri Benítez, [facility] Clinical Assessment - 10 month recurrence (adalimumab) for Rheumatology Social History Tobacco Use Types Packs/Day Years Used Date Smoking Tobacco: Former Cigarettes Smokeless Tobacco: Never Comments:8 years ago Sex and Gender Information Value Date Recorded Sex Assigned at Not on file Gender Identity Not on file Sexual Orientation Not on file documented as of this encounter Progress Notes * Viri Benítez, [facility] - 05/15/2024 11:13 AM EDTSummary: Humira Consult Images from the original note were not included. Specialty Pharmacy Ongoing Clinical Assessment Note Comprehensive Medication Management (CMM) Crystal Felder is a 59 y.o. (1965) female, who is being followed by [facility] for service of Adalimumab. A review of the medication therapy was performed. The medication was scheduled for refill outreach in the next few weeks and all medication related questions and concerns were addressed. The specialty pharmacy staff will follow up with the patient 5-7 days prior to next refill. Therapy Start Date: Fall 2010 Summary and Recommendations: I had the pleasure of speaking with Crystal Felder about her Humira therapy during her ten-month follow up. We reviewed her allergies, current medication lists, and problem list together. She is currently experiencing a flare and has recently started a prednisone taper. Overall, she is very happy on the Humira and has been stable on the medication for years. She is currently flaring and having severe pain in her neck, wrists, and fingers that is significantly impacting her quality of life. She had two previous ED visits for swollen finger tips that she was unsure of the cause of. She states that her current morning stiffness has begun to last the majority of theday and does not ease up until the nighttime.The patient reached out to her provider, they are aware of this flare, and she is scheduled to be seen in office on 05/18. She denies any missed doses despite the current flare and states she is confident in giving the injection to herself and consistently rotates injection sites. She mentioned that her daughter is a pharmacist and helps her with any questions or medication administrations if they arise. We discussed the importance of continuing to get routine laboratory work done to ensure therapy is being appropriately monitored and patient understands. Despite her current flare, she is happy with the Humira and feels that the benefit of the medication highly outweighs any potential issues she may have. She is having no adverse side effects at the moment. We briefly touched on the importance of getting annual vaccinations and avoiding large crowds during cold and flu seasons. She has had no recent signs or symptoms of infection. Is patient willing to proceed with Clinical Assessment?: Yes Clinic follow-up needed: Yes Comments: Patient has made provider aware of the flare and has an appointment scheduled for 05/18 Pharmacist follow-up needed: No Allergies and Drug intolerance: Allergies Allergen Reactions Bupropion Hcl Other reaction(s): anxiety, panic Citalopram Nausea Only Other reaction(s): possible nausea Nabumetone Rash Other reaction(s): rash Problem List: Patient Active Problem List Diagnosis Code Rheumatoid arthritis M06.9 Fibromyalgia M79.7 Depression F32.A Iron deficiency anemia due to chronic blood loss D50.0 Sleep disturbance G47.9 Uveitis H20.9 Anxiety F41.9 Enthesopathy of hip region M76.899 Perimenopausal N95.1 Myalgia M79.10 Costochondritis M94.0 High risk medication use Z79.899 Pain in right hip M25.551 Primary osteoarthritis of both hips M16.0 Sacro-iliac pain M53.3 Chronic pain of both knees M25.561, M25.562, G89.29 Chronic throat pain R07.0, G89.29 Coccydynia M53.3 Medication List: Current Outpatient Medications Medication Sig Dispense Refill predniSONE (Deltasone) 5 mg tablet 6 tabs X 2 days, then 5 tabs x 2 days, then 4 tabs x 2 days, then 3 tabs x 2 days, then 2 tabs x 2 days, then 1 tab x 2 days. 42 tablet 1 Adalimumab (Humira Pen) 40 mg/0.8 mL Pen Injector Kit Inject 0.8 mLs subcutaneously every 14 days. 1 kit 5 acetaminophen (TylenoL) 325 mg tablet Take 650 mg by mouth every 6 hours as needed. folic acid (Vitamin B9) 1 mg tablet TAKE ONE TABLET BY MOUTH EVERY DAY 90 tablet 3 rOPINIRole (Requip) 0.5 mg tablet TAKE 1-3 TABLETS BY MOUTH AT BEDTIME NEEDED 90 tablet 5 metHOTREXate (TrexalL) 2.5 mg tablet TAKE EIGHT TABLETS BY MOUTH ONCE WEEKLY [address] (Cymbalta) 60 mg Capsule, Delayed Release(E.C.) Take 60 mg by mouth daily. No current facility-administered medications for this visit. Medication reconciliation discrepancies (compared to [facility] med list): No Special dietary or hydration requirements: No Specialty Assessment and Patient Counseling: Specialty Assessment completed: Yes Welcome Packet and Rights and Responsibilities: Patient provided welcome packet/rights and responsibilities: Yes Date Confirmed: 03/30/19 Confirmation: Signature in iConText Patient Counseling Completed: Yes Reviewed in detail with patient: Dose appropriateness based on recommended standard dosing Current medication list including OTC medications Medication and disease problems Allergies Comorbid conditions/ Problem List Past adverse events if any Special needs of the patient including physical and cognitive limitations Goals of therapy and management strategies Warnings, precautions, and contraindications Side effects Drug-drug and drug-food interactions Administration instructions including dose, frequency and method Handling, storage, and disposal Verifying expiration dates on products before use Rotating medication inventory to use oldest product first Relevant lab data Treatments impact on disease Dose appropriateness based on recommended standard dosing schedule, including any variations from FDA approved dosing Disease-Specific Assessment and Outcomes: 05/15/2024 Rheumatology Current therapy Adalimumab;Prednisone;Methotrexate Sodium Would you like to report an additional prior therapy? No Is patient currently taking a non-biologic DMARD? Yes Which non-biologic DMARD methotrexate Current RA - PsA - - MARIJA symptoms Joint swelling;Arthalgia;Dactylitis;Morning stiffness;Neck pain;Myalgia;Back pain Current other disease state symptoms Patient was at the ED due to stiff neck, severe joint paint,three swollen finger tips which is unusual for her normal flare symptoms. Arthritis pain rating over the past week 4-6 Estimated duration of morning joint stiffness per day in the past week >2 hours Patient states this lasts the majority of the day until the end of the day. Is this a follow-up consult? Yes What is the percent (%) improvement that the patient has felt since starting on therapy? 70 Estimated number of flares requiring additional medication over the last 6 months 1-2 Provide the name, dose and duration of steroid course which helped the flare Prednisone taper wouldwork for previous flares and patient is currently on another for current flare If the patient is experiencing a flare or exacebation, is the provider aware? Yes Reason for flare (if known) Unknown;Change in season Severity Patient has provider appointment on Saturday (05/18) Therapy status: Therapy continued Patient's goals: Goals/Expected Outcomes Reviewed: Yes Goals Addressed This Visit's Progress DH Home Medication Compliance and Understanding Not on track Reduce Joint damage and flairs, measured by number of office visits for flairs/ x-rays, follow up every 3-6 months Patient's specific desired goal: On track Goal(s): Reduce pain in affected joints by 50% by the next follow up Measured by: pain scale Time-frame: 10 months Therapy Assessment and Recommendations: Therapy Assessment: Appropriate Therapy: Yes On a scale of 1-10, what is the patient's overall confidence in administering this medication(s)?: 9-10 Care Plan reviewed and approved by both pharmacist and patient: Yes Did care plan change?: No Medication Therapy Recommendations No medication therapy recommendations to display This is a: Follow-Up Consult On a scale of 1-10, the patient rates their quality of life: 7-8 Patient experienced change in condition that effects treatment: No Care Plan reviewed and approved by both pharmacist and patient: Yes Did care plan change?: No Is this an injectable medication?: Yes Administration issues identified: No Rotation of injection sites: Yes Medication Adherence 05/15/2024 1113 Which medication are you reporting adherence for?: Adalimumab Patient demonstrates understanding of adherence:: Yes Educational information or adherence tools provided: Yes How many doses does patient have remaining at home?: 2 Any gaps in therapy since last fill?: No Patient/Caregiver -Reported X missed doses in the last month: 0 Provider -Estimated medication adherence level: 90-100% Treatment Outcomes 05/15/2024 1113 Disease progression: Moderate patient currently in flare and required ED visit and was given steroid taper Effectiveness of therapy, reported improvements: Slight Improvement Treatment goals: Have not been met Treatment failures: Partial Failure Patient overall status: Other (Enter in comments) Viri Benítez RPH 05/15/24 11:41 AM documented in this encounter Plan of Treatment Upcoming Encounters Date Type Department Care Team (Late st Contact Info) Description 07/21/2024 1:00 PM EDT Office [place] [address] Isaiah Mcpherson MD [facility] [place] [address] documented as of this encounter Goals Goal Patient Goal Type Associated Problems Recent Progress Patient-Stated? Author [facility] [place] Medication Compliance and Understanding Patient Facing Action Plan Not on track( 11:36 AM EDT) No Mckinley Noel [facility] Note: Reduce Joint damage and flairs, measured by number of office visits for flairs/ x-rays, follow up every 3-6 months Patient's specific desired goal: Patient Facing Action Plan On track( 11:40 AM EDT) No Viri Benítez [facility] Note: Goal(s): Reduce pain in affected joints by 50% by the next follow up Measured by: pain scale Time-frame: 10 months documented as of this encounter Visit Diagnoses Diagnosis Rheumatoid arthritis involving multiple sites with positive rheumatoid factor documented in this encounter Care Teams Roof Plumber Relationship Specialty Start Date End Date Mikayla Aquino MD [phone] (work) PCP - General Family Medicine 07/06/20 documented as of this encounter
--- OUTSIDE RECORDS SUMMARY | 2024-06-19 00:17 | XMS_ITS ---
Author Organization [facility] Address [address], [place] [id number] Care Team Providers Care Soil Fertility Specialist Name Role Phone Mikayla Aquino Primary Care Provider REASON FOR VISIT PRAPARE SF Social History Sex Assigned At : Social History Observation Description Sex Assigned At Female PRAPARE Question Answer Notes Date Completed/Updated: 05/18/2024 What is your current housing situation? I have h ousing Are you worried about losing your housing? No What is the highest level of school that you have finished? 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 Check all that apply I do not have problems meeting my needs Has lack of transportation k ept you from medical appointments, meetings, work or from getting things needed for daily living? No How often do you see or talk to people that you care about and feel close to? (For example: talking to friends on the phone, visiting friends or family, going to christianity or club meetings) More than 5 times a week How stressed are you? Stress is when someone feels tense, nervous, anxious, or can't sleep at night because their mind is troubled Somewhat In the past year have you sp ent more than 2 nights in a row in a senior care, longterm, skilled nursing center, or juvenile correctional facility? No Are you a refugee? No What country are you from? [place] Do you feel physically and e motionally safe where you currently live? Yes In the past year, have you b een afraid of your partner or ex-partner? I have not had a partner in the past year PRAPARE Score: 2 Encounters Encounter Location Date Provider Diagnosis [facility] [address] [place] [address] 05/18/2024 Mikayla Aquino PRAPARE NEGATIVE PRA N Assessments Encounter Date Diagnosis (ICD Code) Assessment Notes Treatment Notes Treatment Clinical Notes 05/18/2024 PRAPARE NEGATIVE (ICD9-CM - PRAN) Plan Of Treatment No Information Progress Notes * Mary EDMONDSOB:1965 (59 yo F)Acc No.[id number]:05/18/2024 Patient:?Crystal EDMONDS :1965???Age:59 Y???Sex:Female Address:[address] [place] [address] Subjective: * Chief Complaints: * ???PRAPARE SF * Medical History:? * Surgical History:? * Hospitalization/Major Diagno stic Procedure:? 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 Check all that apply?I do not have problems meeting my needs ?Has lack of transportation kept you from medical appointments, meetings, work or from getting things needed for daily living??No ?How often do you see or talk to people that you care about and feel close to? (For example: talking to friends on the phone, visiting friends or family, going to christianity or club meetings)?More than 5 times a week ?How stressed are you? Stress is when someone feels tense, nervous, anxious, or can't sleep at night because their mind is troubled?Somewhat ?In the past year have you spent more than 2 nights in a row in a senior care, longterm, skilled nursing center, or juvenile correctional facility??No ?Are you a refugee??No ?What country are you from??[place] ?Do you feel physically and emotionally safe where you currently live??Yes ?In the past year, have you been afraid of your partner or ex-partner??I have not had a partner in the past year ?PRAPARE Score:?2 ???Follows [facility]. * Medications:? Objective: * Vitals:? * Physical Examination:? Assessment: * Assessment: 1.?PRAPARE NEGATIVE - PRAN ( Primary)??? Plan: * Treatment: * Procedure Codes:?[facility] Care C oordinator Phone Consultation * true * Date:? Generated for Yeimy akhtar/Andressa/Rufino on:?06/19/2024 12:15 AM EDT
--- OUTSIDE RECORDS SUMMARY | 2024-06-19 00:17 | XMS_ITS | Encounter Summary ---
Author Organization [facility] [place] [address] Care Team Providers Care R D Internship Name Role Phone Mikayla Aquino MD Primary Care Provider [phone] Encounter Details Date Type Department Care Team (Late st Contact Info) Description 05/12/2024 Orders Only [place] [phone] Carolina Conley [facility] [place] [place] [address] Rheumatoid arthritis involving multiple sites with positive rheumatoid factor Social History Tobacco Use Types Packs/Day Years [...] 1:00 PM EDT Office [place] [address] Isaiah Mcpherson MD [facility] [place] [place] [address] documented as of this encounter Goals Goal Patient Goal Type Associated Problems Recent Progress Patient-Stated? Author [facility] Medication Compliance and Understanding Patient Facing Action Plan Not on track( 024 11:36 AM EDT) No Mckinley Noel, [facility] Note: Reduce Joint damage and flairs, measured by number of office visits for flairs/ x-rays, follow up every 3-6 months documented as of this encounter Visit Diagnoses Diagnosis Rheumatoid arthritis involving multiple sites with positive rheumatoid factor documented in this encounter Care Teams R D Internship Relationship Specialty Start Date End Date Mikayla Aquino MD PCP - General Family Medicine 07/06/20 documented as of this encounter
--- OUTSIDE RECORDS SUMMARY | 2024-06-19 00:17 | XMS_ITS | Encounter Summary ---
Author Organization [facility] [place] [address] Care Team Providers Care Extruding Press Adjuster Name Role Phone Mikayla Aquino MD Primary Care Provider [phone] Reason for Visit * Reason Onset Date Comments Medication Refill 05/12/2024 Encounter Details Date Type Department Care Team (Late st Contact Info) Description 05/12/2024 [place] [phone] Esther Armstrong RN Rheumatoid arthritis involving multiple sites with positive rheumatoid factor Social History Tobacco Use Types Packs/Day Years Used Date Smoking Tobacco: Former Cigarettes Smokeless Tobacco: Never Comments:8 years ago Sex and Gender Information Value Date Recorded Sex Assigned at Not on file Gender Identity Not on file Sexual Orientation Not on file documented as of this encounter Miscellaneous Notes * Telephone Encounter - Esther Armstrong RN - 05/12/2024 5:01 PM EDT Call returned to pt regarding message left with the call center. Pt was informed that per Dr. Conley, Psl ensure no fevers, chills, headaches, vision changes,. If not she can do steroid taper. Pt denied all of the above symptoms and will start steroid taper. * Telephone Encounter - Esther Armstrong RN - 05/12/2024 3:39 PM EDT Call returned to pt regarding message left with the call center. Pt reported that she noticed that 3 of her fingers were swollen like a balloon and her neck was stiff on 05/08 so she went to the hospital thinking that maybe she had a tick borne disease. Pt reported that the testing came back negative and she thinks she is having an RA flare. Pt reported that currently she is having severe pain in her right hand and shoulder and left hip. 2 of pt's fingers on her right hand are still very swollen. Pt denied joint redness and warmth. Pt reported that she hasn't slept in 2 nights d/t the pain. Pt confirmed that she is taking Humira every 14 days and MTX 20 mg weekly. Pt reported that the pain is severe and she needs to work so she began to take 5 mg prednisone and is planning on tapering off per her last set of taper instructions (6 tabs X 2 days, then 5 tabs x 2 days, then 4 tabs x 2 days, then 3 tabs x 2 days, then 2 tabs x 2 days, then 1 tab x 2 days). Pt reported that she does not have enough prednisone on hand and is asking for a refill to be sent to the [facility] in [place], [place]. Pt also reported that she has been taking ibuprofen without relief. PT is also asking if she should be put on a maintenance dose of prednisone for a while rather than a prednisone taper? Pt was informed that her report will be forwarded to Dr. Mcpherson/covering provider for review and input. When this is available pt will be called back. Pt is agreeable to plan. * Telephone Encounter - Esther Armstrong RN - 05/12/2024 3:38 PM EDT Copied from [facility] #[id number]. Topic: Specialty Dept CRMs - Triage >> May 12, 2024 1:25 PM Sylvain Eaton wrote: Triage Message Specialist: Dr. Mcpherson Relationship (if other than patient-full name): self Symptom: flare up in shoulder and hand Has patient experienced symptom before no If patient has experienced symptom before, when was the last time this occurred Is patient currently having symptom yes When did symptom begin 05/08/24 Additional Comments: Patient went to the hospital thinking she had a tick bite, but results came back negative. Patient is having painful flare up. documented in this encounter Plan of Treatment Upcoming Encounters Date Type Department Care Team (Late st Contact Info) Description 07/21/2024 1:00 PM EDT [place] [address] Isaiah Mcpherson MD [facility] [place] [address] documented as of this encounter Goals Goal Patient Goal Type Associated Problems Recent Progress Patient-Stated? Author [facility] Medication Compliance and Understanding Patient Facing Action Plan Not on track( 024 11:36 AM EDT) No Mckinley Noel, [facility] Note: Reduce Joint damage and flairs, measured by number of office visits for flairs/ x-rays, follow up every 3-6 months documented as of this encounter Visit Diagnoses Diagnosis Rheumatoid arthritis involving multiple sites with positive rheumatoid factor documented in this encounter Care Teams Extruding Press Adjuster Relationship Specialty Start Date End Date Mikayla Aquino MD PCP - General Family Medicine 07/06/20 documented as of this encounter
--- OUTSIDE RECORDS SUMMARY | 2024-06-19 00:17 | XMS_ITS | Encounter Summary ---
Author Organization [facility] [place] [address] Care Team Providers Care Cable Television Installer Name Role Phone Mikayla Aquino MD Primary Care Provider [phone] Encounter Details Date Type Department Care Team (Late st Contact Info) Description 05/08/2024 11:00 PM EDT - 05/08/2024 11:59 PM EDT Hospital Encounter [facility] [address] [place] [address] Ollie East MD [address] [place] [address] Discharge Disposition: Home Social History Tobacco Use Types Packs/Day Years Used Date Smoking Tobacco: Former Cigarettes Smokeless Tobacco: Never Comments:8 years ago Sex and Gender Information Value Date Recorded Sex Assigned at Not on file Gender Identity Not on file Sexual Orientation Not on file documented as of this encounter Medications at Time of Discharge Medication Sig Dispensed Refills Start Date End Date Adalimumab (Humira Pen) 40 mg/0.8 mL Pen Injector Kit Inject 0.8 mLs subcutaneously every 14 days. 1 kit 5 02/12/2024 acetaminophen (TylenoL) 325 mg tablet Take 650 mg by mouth every 6 hours as needed. folic acid (Vitamin B9) 1 mg tablet TAKE ONE TABLET BY MOUTH EVERY DAY 90 tablet 3 07/15/2023 rOPINIRole (Requip) 0.5 mg tabletIndications:O SA (obstructive sleep apnea),RLS (restless legs syndrome) TAKE 1-3 TABLETS BY MOUTH AT BEDTIME NEEDED 90 tablet 5 04/26/2023 metHOTREXate (TrexalL) 2.5 mg tablet TAKE EIGHT TABLETS BY MOUTH ONCE WEEKLY 104 tablet 3 04/12/[address] (Cymbalta) 60 mg Capsule, Delayed Release(E.C.) Take 60 mg by mouth daily. 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 42 tablet 1 12/24/2023 05/12/2024 documented as of this encounter Plan of Treatment Upcoming Encounters Date Type Department Care Team (Late st Contact Info) Description 07/21/2024 1:00 PM EDT Office [place] [address] Isaiah Mcpherson MD [facility] [place] [place] [address] documented as of this encounter Goals Goal Patient Goal Type Associated Problems Recent Progress Patient-Stated? Author [facility] Medication Compliance and Understanding Patient Facing Action Plan Not on track( 024 11:36 AM EDT) No Mckinley Noel, [facility] Note: Reduce Joint damage and flairs, measured by number of office visits for flairs/ x-rays, follow up every 3-6 months documented as of this encounter Procedures Procedure Name Priority Date/Time Associated Diagnosis Comments URINE CULTURE Routine 05/09/2024 1:03 AM EDT BLOOD CULTURE Routine 05/08/2024 11:55 PM EDT BLOOD CULTURE Routine 05/08/2024 11:36 PM EDT ACUTE TICK BORNE INFECTION PANEL Routine 05/08/2024 10:45 PM EDT documented in this encounter Results * (ABNORMAL) Urine culture (05/09/2024 1:03 AM EDT) Urine Culture 10,000-49,000 cfu/ml mixed mucosal laisha including 1,000-9,000 cfu/ml Beta Hemolytic Streptococci, Group B Note: Culture shows multiple bacterial species suggesting mucosal contamination. (A) [facility] Organism Beta Hemolytic Streptococci, Group B(A) [facility] Urine 05/09/2024 1:03 AM EDT 05/09/2024 12:54 PM EDT Narrative Resulting Agency Comment Spec In Lab Ollie East MD MICROBIOLOGY - GE NERAL ORDERABLES [facility] [place] [address] * Blood culture (05/08/2024 11:55 PM EDT) Blood Culture No growth at 5 days. [facility] Blood STRUCTURE OF LEFT UPPER LIMB / Unknown 05/08/2024 11:55 PM EDT 05/09/2024 12:58 PM EDT Comment:#2 Narrative Resulting Agency Comment Spec In Lab Ollie East MD MICROBIOLOGY - BL OOD ORDERABLES Performing Organization Address City/[facility]/ZIP Co de Phone Number [facility] [place] [address] * Blood culture (05/08/2024 11:36 PM EDT) Blood Culture No growth at 5 days. [facility] Blood ANTECUBITAL REGION STRUCTURE / Unknown 05/08/2024 11:36 PM EDT 05/09/2024 12:57 PM EDT Comment:#1 Narrative Resulting Agency Comment Spec In Lab Ollie East MD MICROBIOLOGY - BL OOD ORDERABLES [facility] [place] [address] * Acute Tick Borne Infection Panel (05/08/2024 10:45 PM EDT) Pathologist [facility] Anaplasma phagocytophilum PCR Not Detected Not Detected [facility] Comment: INTERPRETATION: A positive result [...] and its performance characteristics determined by the [employer] [facility] at [facility]. It has not been cleared or approved by the FDA. The laboratory is regulated under CLIA as qualified to perform high-complexity testing. This test is used for clinical purposes. It should not be regarded as investigational or for research. Ehrlichia chaffeensis PCR Not Detected Not Detected [facility] Comment: INTERPRETATION: A positive result [...] and its performance characteristics determined by the [employer] [facility] at [facility]. It has not been cleared or approved by the FDA. The laboratory is regulated under CLIA as qualified to perform high-complexity testing. This test is used for clinical purposes. It should not be regarded as investigational or for research. Babesia microti PCR Not Detected Not Detected [facility] Comment: INTERPRETATION: A positive result [...] its performance characteristics determined by the Clinical [employer] Laboratory at [facility]. It has not been cleared or approved by the FDA. The laboratory is regulated under CLIA as qualified to perform high-complexity testing. This test is used for clinical purposes. It should not be regarded as investigational or for research. Borrelia miyamotoi PCR Not Detected Not Detected [facility] Comment: INTERPRETATION: A positive result [...] [employer] ([employer] Laboratory at [facility]. It has not been cleared or approved by the FDA. The laboratory is regulated under CLIA as qualified to perform high-complexity testing. This test is used for clinical purposes. It should not be regarded as investigational or for research. Blood 05/08/2024 10:4 5 PM EDT 05/09/2024 2:25 PM EDT Narrative Resulting Agency Comment Spec In Lab Ollie East MD MOLECULAR ORDERAB LES [place] [id number] documented in this encounter Visit Diagnoses Not on filedocumented in this encounter Care Teams Cable Television Installer Relationship Specialty Start Date End Date Mikayla Aquino MD PCP - General Family Medicine 07/06/20 documented as of this encounter
--- OUTSIDE RECORDS SUMMARY | 2024-06-19 00:18 | XMS_ITS | Encounter Summary ---
Author Organization [facility] [address] Care Team Providers Care Credentialer Name Role Phone Mikayla Aquino MD Primary Care Provider [phone] Reason for Visit * Reason Comments Medication Refill Encounter Details Date Type Department Care Team (Late st Contact Info) Description 12/26/2023 Specialty [place] [phone] Kali Vasquez, [facility] Social History Tobacco Use Types Packs/Day Years Used Date Smoking Tobacco: Former Cigarettes Smokeless Tobacco: Never Comments:8 years ago Sex and Gender Information Value Date Recorded Sex Assigned at Not on file Gender Identity Not on file Sexual Orientation Not on file documented as of this encounter Progress Notes * Kali Vasquez [facility] - 12/26/2023 4:04 PM EST Clinical Management Plan: Refill Specialty Pharmacy Consultation; Kali Vasquez [facility] Comprehensive Medication Management (CMM) Crystal Felder Ms. Crystal Felder is a 58 y.o. (1965) female who was contacted in regard to a specialty medication refill reminder. The patient requested a refill of HUMIRA. A review of the medication therapy was performed. The medication was refilled as scheduled, and all medication related questions and concerns were addressed. The specialty pharmacy staff will follow up with the patient 5-7 days prior tonext refill. Was a change made to the Care Plan: No Allergies and Drug intolerance: Allergies Allergen Reactions Bupropion Hcl Other reaction(s): anxiety, panic Citalopram Nausea Only Other reaction(s): possible nausea Nabumetone Rash Other reaction(s): rash Medication Reconciliation Discrepancies (compared to [facility] med list) No Specialty Pharmacy Refill Questionnaire More data exists 12/26/2023 Refill Questionnaire What is the name of the specialty medication you are refilling? Humira Are you taking any new medications? No Any new medical condition? No Any new allergies? No Any new side effects that are bothersome? No Adherence: Any missed doses? No Patient understands no changes to current drug regimen were made. Kali Vasquez RPH 12/26/23 4:05 PM documented in this encounter Plan of Treatment Upcoming Encounters Date Type Department Care Team (Late st Contact Info) Description 07/21/2024 1:00 PM EDT Office [place] [address] Isaiah Mcpherson MD [facility] [place] [address] documented as of this encounter Goals Goal Patient Goal Type Associated Problems Recent Progress Patient-Stated? Author [facility] Medication Compliance and Understanding Patient Facing Action Plan Not on track( 024 11:36 AM EDT) No Mckinley Noel [facility] Note: Reduce Joint damage and flairs, measured by number of office visits for flairs/ x-rays, follow up every 3-6 months documented as of this encounter Visit Diagnoses Not on filedocumented in this encounter Care Teams Credentialer Relationship Specialty Start Date End Date Mikayla Aquino MD PCP - General Family Medicine 07/06/20 documented as of this encounter
--- OUTSIDE RECORDS SUMMARY | 2024-06-19 00:18 | XMS_ITS | Encounter Summary ---
Author Organization [facility] [place] [address] Care Team Providers Care Poultry Slaughterer Name Role Phone Mikayla Aquino MD Primary Care Provider [phone] Encounter Details Date Type Department Care Team (Late st Contact Info) Description 03/22/2023 [facility] Only [address] [phone] Mikayla Aquino MD [address] [place] [address] Social History Tobacco Use Types Packs/Day Years [...] 1:00 PM EDT Office [place] [address] Isaiah Mcpherson MD [facility] [place] [address] documented as of this encounter Goals Goal Patient Goal Type Associated Problems Recent Progress Patient-Stated? Author [facility] Medication Compliance and Understanding Patient Facing Action Plan Not on track( 024 11:36 AM EDT) No Mckinley Noel, [facility] Note: Reduce Joint damage and flairs, measured by number of office visits for flairs/ x-rays, follow up every 3-6 months documented as of this encounter Procedures Procedure Name Priority Date/Time Associated Diagnosis Comments MAMMO SCREENING CAD BILATERAL Routine 03/22/2023 1:20 PM EDT documented in this encounter Results * Mammo Screening Cad Bilateral (03/22/2023 1:20 PM EDT) PT CLASS O DH RAD ADMITDTTM DH RAD PT RAD INFO [id number]^HO MAN^FAY^F DH RAD EXAM DESC MADDSC^SCREEN MAMMO BL INCLUDES CAD^RIS DH RAD Anatomical Region Laterality Modality Breast Bilateral [...] who have questions please contact the health intensive care specialist that requested your imaging first. ? Electronically signed by: Yovany Wade MD, [facility] ([phone]), at 03/26/2023 2:43 PM Narrative 03/26/2023 2:43 [...] patients who have questions please contactthe health intensive care specialist that requested your imaging first. Mikayla Aquino MD IMG MAMMO ORDERABLES documented in this encounter Visit Diagnoses Not on filedocumented in this encounter Care Teams Poultry Slaughterer Relationship Specialty Start Date End Date Mikayla Aquino MD PCP - General Family Medicine 07/06/20 documented as of this encounter
--- OUTSIDE RECORDS SUMMARY | 2024-06-19 00:18 | XMS_ITS | Encounter Summary ---
Author Organization [facility] [place] [address] Care Team Providers Care Clinical Trials Manager Name Role Phone Mikayla Aquino MD Primary Care Provider [phone] Encounter Details Date Type Department Care Team (Late st Contact Info) Description 03/22/[address] [facility] Only [address] [phone] Mikayla Aquino MD [address] [place] [address] Social History Tobacco Use Types Packs/Day Years [...] 1:00 PM EDT Office [place] [address] Isaiah Mcpherson MD [facility] [place] [address] documented as of this encounter Goals Goal Patient Goal Type Associated Problems Recent Progress Patient-Stated? Author [facility] Medication Compliance and Understanding Patient Facing Action Plan Not on track( 024 11:36 AM EDT) No Mckinley Noel, [facility] Note: Reduce Joint damage and flairs, measured by number of office visits for flairs/ x-rays, follow up every 3-6 months documented as of this encounter Procedures Procedure Name Priority Date/Time Associated Diagnosis Comments MAMMO SCREENING CAD AND DAVIDSON BILATERAL Routine 03/22/2023 1:20 PM EDT documented in this encounter Results * Mammo Screening Cad and Davidson Bilateral (03/22/2023 1:20 PM EDT) PT CLASS O DH RAD ADMITDTTM DH RAD PT DH RAD INFO [id number]^LUDWIG^ FAY^F DH RAD EXAM DESC MADDSCTO^BREAST SCREEN TOMOSYNTHESIS BI^RIS DH RAD Anatomical Region Laterality Modality Breast [...] who have questions please contact the health palliative care physician that requested your imaging first. ? Electronically signed by: Yovany Wade MD, [facility] ([phone]), at 03/26/2023 2:43 PM Narrative 03/26/2023 2:43 [...] patients who have questions please contactthe health palliative care physician that requested your imaging first. Electronically signed by: Yovany Wade MD, [facility]([phone]), at 03/26/2023 2:43 PM Mikayla Aquino MD IMG MAMMO ORDERABLES documented in this encounter Visit Diagnoses Not on filedocumented in this encounter Care Teams Clinical Trials Manager Relationship Specialty Start Date End Date Mikayla Aquino MD PCP - General Family Medicine 07/06/20 documented as of this encounter
--- OUTSIDE RECORDS SUMMARY | 2024-06-19 00:18 | XMS_ITS | Encounter Summary ---
Author Organization [facility] [place] [address] Care Team Providers Care Assistant Women'S Rowing Coach Name Role Phone Mikayla Aquino MD Primary Care Provider [phone] Encounter Details Date Type Department Care Team (Late st Contact Info) Description 12/24/2023 Orders [place] [phone] Isaiah Mcpherson MD [facility] [address] Rheumatoid arthritis involving multiple sites with positive [...] PM EDT Office [place] [address] Isaiah Mcpherson MD [facility] [place] [address] documented as of this encounter Goals Goal Patient Goal Type Associated Problems Recent Progress Patient-Stated? Author [facility] Medication Compliance and Understanding Patient Facing Action Plan Not on track( 024 11:36 AM EDT) No Mckinley Noel, [facility] Note: Reduce Joint damage and flairs, measured by number of office visits for flairs/ x-rays, follow up every 3-6 months documented as of this encounter Visit Diagnoses Diagnosis Rheumatoid arthritis involving multiple sites with positive rheumatoid factor documented in this encounter Care Teams Assistant Women'S Rowing Coach Relationship Specialty Start Date End Date Mikayla Aquino MD PCP - General Family Medicine 07/06/20 documented as of this encounter
--- OUTSIDE RECORDS SUMMARY | 2024-06-19 00:18 | XMS_ITS | Encounter Summary ---
Author Organization [facility] [place] [address] Care Team Providers Care Desktop Support Specialist Name Role Phone Mikayla Aquino MD Primary Care Provider [phone] Reason for Visit * Reason Comments Medication Refill Encounter Details Date Type Department Care Team (Late Contact Info) Description 04/25/2023 Refill [place] [address] Isaiah Mcpherson MD [facility] [place] [place] [address] GUEVARA (obstructive sleep apnea); RLS (restless legs syndrome) Social History Tobacco Use Types Packs/Day Years [...] 1:00 PM EDT Office Visit [place] [address] Isaiah Mcpherson MD [facility] [place] [address] documented as of this encounter Goals Goal Patient Goal Type Associated Problems Recent Progress Patient-Stated? Author [facility] Medication Compliance and Understanding Patient Facing Action Plan Not on track( 024 11:36 AM EDT) No Mckinley Noel, [facility] Note: Reduce Joint damage and flairs, measured by number of office visits for flairs/ x-rays, follow up every 3-6 months documented as of this encounter Visit Diagnoses Diagnosis GUEVARA (obstructive sleep apnea) Obstructive sleep apnea (adult) (pediatric) RLS (restless legs syndrome) Restless legs syndrome (RLS) documented in this encounter Care Teams Desktop Support Specialist Relationship Specialty Start Date End Date Mikayla Aquino MD PCP - General Family Medicine 07/06/20 documented as of this encounter
--- OUTSIDE RECORDS SUMMARY | 2024-06-19 00:18 | XMS_ITS | Encounter Summary ---
Author Organization [facility] [place] [address] Care Team Providers Care Sports Teacher Name Role Phone Mikayla Aquino MD Primary Care Provider Reason for Visit * Reason Comments Medication Management Specialty Refill Management Encounter Details Date Type Department Care Team (Late st Contact Info) Description 09/12/2022 Specialty [place] [address] Abelino Sarmiento [facility] Social History Tobacco Use Types Packs/Day Years Used Date Smoking Tobacco: Former Cigarettes Smokeless Tobacco: Never Comments:8 years ago Sex and Gender Information Value Date Recorded Sex Assigned at Not on file Gender Identity Not on file Sexual Orientation Not on file documented as of this encounter Progress Notes * Abelino Sarmiento [facility] - 09/12/2022 3:01 PM EST Clinical Management Plan: Refill Specialty Pharmacy Consultation; Abelino Sarmiento [place] Comprehensive Medication Management (CMM) Crystal Felder Ms. Crystal Felder is a 57 y.o. (1965) female who was contacted in regard to a specialty medication refill reminder. Contact made with patient regarding Humira. A review of the medication therapywas performed. The medication was refilled as scheduled, and all medication related questions and concerns were addressed. The specialty pharmacy staff will follow up with the patient 5-7 days prior to next refill. Was a change made to the Care Plan: no If yes, should the medication be held: No Assessment and Recommendations: Medication Management Type of Medication Management: chronic disease management Referred By: pharmacist Recipient: beneficiary Provider: pharmacist - other [facility] Follow-[facility] Time Spent: 1-15 min Method of Contact: by telephone Cognitive Ability: good Cognitive Impairment Status Verified this Year: no Allergies and Drug intolerance: No Known Allergies Medication Reconciliation Discrepancies (compared to eD med list) -pt was late in injecting by 1 week and new injection date is from that injected date. Pt uses calender, advised to use cellphone reminders going forward, open to try it Specialty Pharmacy Refill Questionnaire Refill Questionnaire 09/12/2022 What is the name of the specialty medication you are refilling? humira Are you taking any new medications? No Please explain - Any new medical condition? No Any new allergies? No Any missed doses since your last fill? No Please explain - Any new side effects that are bothersome? No What date will you need this fill by? 09/23/2022 Adherence: Specialty Med Adherence Patient Demonstrates Understanding of Importance of Adherence: Yes Educational Information or Adherence Tools Provided: No How many doses does patient have remaining at home?: 0 Patient Reported X Missed Doses in the Last Month: 0 Provider-Estimated Medication Adherence Level: 90-100% Adherence Tools Used: calendar, directed education Pt understands no changes to current drug regimen were made at the appointment and that [facility] is providing recommendations (summary located at top of note) for provider review and follow up. Abelino Sarmiento RPH 09/12/22 3:02 PM documented in this encounter Plan of Treatment Upcoming Encounters Date Type Department Care Team (Late st Contact Info) Description 07/21/2024 1:00 PM EDT Office [place] [address] Isaiah Mcpherson MD [facility] [place] [address] documented as of this encounter Goals Goal Patient Goal Type Associated Problems Recent Progress Patient-Stated? Author [facility] Medication Compliance and Understanding Patient Facing Action Plan Not on track( 024 11:36 AM EDT) No Mckinley Noel [facility] Note: Reduce Joint damage and flairs, measured by number of office visits for flairs/ x-rays, follow up every 3-6 months documented as of this encounter Visit Diagnoses Not on filedocumented in this encounter Care Teams Sports Teacher Relationship Specialty Start Date End Date Mikayla Aquino MD PCP - General Family Medicine 07/06/20 documented as of this encounter
--- OUTSIDE RECORDS SUMMARY | 2024-06-19 00:18 | XMS_ITS | Encounter Summary ---
Author Organization [facility] [place] [address] Care Team Providers Care Outreach Associate Name Role Phone Mikayla Aquino MD Primary Care Provider [phone] Encounter Details Date Type Department Care Team (Late st Contact Info) Description 09/09/2023 [place] [address] Isaiah Mcpherson MD [facility] [place] [address] Social History Tobacco Use Types Packs/Day Years [...] 1:00 PM EDT Office [place] [address] Isaiah Mcpherson MD [facility] [place] [address] documented as of this encounter Goals Goal Patient Goal Type Associated Problems Recent Progress Patient-Stated? Author [facility] Medication Compliance and Understanding Patient Facing Action Plan Not on track( 024 11:36 AM EDT) No Mckinley Noel, [facility] Note: Reduce Joint damage and flairs, measured by number of office visits for flairs/ x-rays, follow up every 3-6 months documented as of this encounter Visit Diagnoses Not on filedocumented in this encounter Care Teams Outreach Associate Relationship Specialty Start Date End Date Mikayla Aquino MD PCP - General Family Medicine 07/06/20 documented as of this encounter
--- OUTSIDE RECORDS SUMMARY | 2024-06-19 00:18 | XMS_ITS | Encounter Summary ---
Author Organization [facility] Address [facility] [place] [address] Care Team Providers Care Quality Process Lead Name Role Phone Mikayla Aquino MD Primary Care Provider [phone] Encounter Details Date Type Department Care Team (Late st Contact Info) Description 10/31/2022 12:08 PM EST - 10/31/2022 11:59 PM EST Hospital Encounter XRay at [address] [place] [address] Isaiah Mcpherson MD [facility] [place] [address] Rheumatoid arthritis involving multiple sites with positive rheumatoid factor Discharge Disposition: Home Social History Tobacco Use Types Packs/Day Years Used Date Smoking Tobacco: Former Cigarettes Smokeless Tobacco: Never Comments:8 years ago Sex and Gender Information Value Date Recorded Sex Assigned at Not on file Gender Identity Not on file Sexual Orientation Not on file documented as of this encounter Medications at Time of Discharge Medication Sig Dispensed Refills Start Date End Date DULoxetine DR (Cymbalta) 60 mg Capsule, Delayed Release(E.C.) Take 60 mg by mouth daily. 01/29/2022 Adalimumab (Humira Pen) 40 mg/0.8 mL Pen Injector Kit Inject 0.8 mLs subcutaneously every 14 days. Inject the contents of one pen (40 mg) subcutaneously once every 14 days. 1 kit 11 09/11/2022 09/09/2023 predniSONE (Deltasone) 5 mg TabletIndications:R heumatoid arthritis involving multiple sites with positive rheumatoid factor 6 tabs X 2 days, then 5 tabs x 2 days, then 4 tabs x 2 days, then 3 tabs x 2 days, then 2 tabs x 2 days, then 1 tab x 2 days. 42 tablet 1 06/03/2022 09/18/2023 rOPINIRole (REQUIP) 0.5 mg TabletIndications:O SA (obstructive sleep apnea),RLS (restless legs syndrome) Take 1-3 tablets by mouth nightly as needed. 90 tablet 5 01/10/2022 04/26/2023 metHOTREXate 2.5 mg Tablet TAKE 8 TABLETS BY MOUTH ONCE WEEKLY 104 tablet 3 01/04/2022 04/12/2023 folic acid (Folvite) 1 mg Tablet TAKE ONE TABLET BY MOUTH EVERY DAY 90 tablet 3 11/23/2021 07/15/2023 documented as of this encounter Plan of Treatment Upcoming Encounters Date Type Department Care Team (Late st Contact Info) Description 07/21/2024 1:00 PM EDT Office [place] [address] Isaiah Mcpherson MD [facility] [place] [address] documented as of this encounter Goals Goal Patient Goal Type Associated Problems Recent Progress Patient-Stated? Author [facility] Medication Compliance and Understanding Patient Facing Action Plan Not on track( 024 11:36 AM EDT) No Mckinley Noel, [facility] Note: Reduce Joint damage and flairs, measured by number of office visits for flairs/ x-rays, follow up every 3-6 months documented as of this encounter Procedures Procedure Name Priority Date/Time Associated Diagnosis Comments XR HAND MIN 3 VIEWS BILAT Routine 10/31/2022 12:49 PM EST Rheumatoid arthritis involving multiple sites with positive rheumatoid factor documented in this encounter Results * XR Hand Min 3 views Bilat (Generic) (10/31/2022 12:49 PM EST) Anatomical Region Laterality Modality Hand Bilateral Digital Radiogra phy Impressions 10/31/2022 2:38 PM EST 1. 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 2. ??No osseous erosions. 3. ??[place]-neck deformity of multiple right fingers, and to a lesser extent the left long finger, and ulnar deviation at the left metacarpophalangeal joints is nonspecific, but malalignment of the fingers can be seen in rheumatoid arthritis. Thank you for letting us participate in the care of this patient. ??If you are a health care provider and have any questions regarding this report, please contact the number below. ??For patients who have questions please contact the health medication care manager that requested your imaging first. ? Electronically signed by: Christine Singletary MD, [facility] ([phone]), at 10/31/2022 2:38 PM Narrative 10/31/2022 2:38 PM EST EXAMINATION: XR HAND MIN 3 VIEWS BILAT (GENERIC) CLINICAL HISTORY: RA. Erosions? (as entered by ordering provider in the order requisition) TECHNIQUE: PA, oblique, lateral, and ball-catcher's views of the bilateral hands. COMPARISON: Left hand and left finger radiographs 07/12/2021. Bilateral hand radiographs 10/14/2008 FINDINGS: No focal soft tissue swelling. No dactylitis. No soft tissue tophi. No soft tissue calcification. There is diffuse osseous demineralization. Similar slight bony irregularity of the left ulnar styloid process, without a definite lucent erosion. No osseous erosions. No periostitis, ankylosis, or acro osteolysis. There is scattered joint space narrowing of the bilateral finger interphalangeal joints. There is minimal osteophyte formation at the thumb interphalangeal joints and at the bilateral first carpal metacarpal joints. No acute fracture. There is [place]-neck deformity of the right index, long, and ring fingers and to a lesser extent the left long finger. On the ball-catcher's view, there is slight ulnar deviation at the left metacarpophalangeal joints. Procedure Note Christine Singletary MD - 10/31/2022 EXAMINATION: XR HAND MIN 3 VIEWS BILAT (GENERIC) CLINICAL HISTORY: RA. Erosions? (as entered by ordering provider in theorder requisition) TECHNIQUE: PA, oblique, lateral, and ball-catcher's views of the bilateral hands. COMPARISON: Left hand and left finger radiographs 07/12/2021. Bilateral handradiographs 10/14/2008 FINDINGS: No focal soft tissue swelling. No dactylitis. No soft tissue tophi. No soft tissue calcification. There is diffuse osseous demineralization. Similar slight bony irregularity of the left ulnar styloid process,without a definite lucent erosion. No osseous erosions. No periostitis, ankylosis, or acro osteolysis. There is scattered joint space narrowing of the bilateral fingerinterphalangeal joints. There is minimal osteophyte formation at the thumbinterphalangeal joints and at the bilateral first carpal metacarpal joints. No acute fracture. There is [place]an-neck deformity of the right index, long,and ring fingers and to a lesser extent the left long finger. On theball-catcher's view, there is slight ulnar deviation at the left metacarpophalangealjoints. IMPRESSION 1. 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 2. No osseous erosions. 3. [place]-neck deformity of multiple right fingers, and to a lesser extentthe left long finger, and ulnar deviation at the left metacarpophalangealjoints is nonspecific, but malalignment of the fingers can be seen in rheumatoid arthritis. Thank you for letting us participate in the care of this patient. If youare a health care provider and have any questions regarding this report,please contact the number below. For patients who have questions please contactthe health medication care manager that requested your imaging first. Electronically signed by: Christine Singletary MD, [facility]([phone]), at 10/31/2022 2:38 PM Isaiah Mcpherson MD IMG DX ORDERABLES documented in this encounter Visit Diagnoses Diagnosis Rheumatoid arthritis involving multiple sites with positive rheumatoid factor documented in this encounter Care Teams Quality Process Lead Relationship Specialty Start Date End Date Mikayla Aquino MD PCP - General Family Medicine 07/06/20 documented as of this encounter
--- OUTSIDE RECORDS SUMMARY | 2024-06-19 00:18 | XMS_ITS | Encounter Summary ---
Author Organization [facility] [place] [address] [place] [address] Care Team Providers Care Dog Trainer Name Role Phone Mikayla Aquino MD Primary Care Provider [phone] Reason for Visit * Reason Comments Specialty Pharmacy Review Adalimumab (Hu brett) Pen 40mg/0.8mL Encounter Details Date Type Department Care Team (Late st Contact Info) Description 09/10/2023 Specialty [place] [address] Chanell Dorman, [facility] Social History Tobacco Use Types Packs/Day Years Used Date Smoking Tobacco: Former Cigarettes Smokeless Tobacco: Never Comments:8 years ago Sex and Gender Information Value Date Recorded Sex Assigned at Not on file Gender Identity Not on file Sexual Orientation Not on file documented as of this encounter Progress Notes * Chanell Dorman - 09/10/2023 7:20 AM EST The [facility] has completed a benefits investigation for Crystal Felder to review their eligibility to fill at [facility]. Per patient's medication list they are prescribed Humira and the medication is currently filled through the [facility]. documented in this encounter Plan of Treatment Upcoming Encounters Date Type Department Care Team (Late st Contact Info) Description 07/21/2024 1:00 PM EDT Office [place] [address] Isaiah Mcpherson MD [facility] [address] documented as of this encounter Goals Goal Patient Goal Type Associated Problems Recent Progress Patient-Stated? Author Home Medication Compliance and Understanding Patient Facing Action Plan Not on track( 024 11:36 AM EDT) No Mckinley Noel, [facility] Note: Reduce Joint damage and flairs, measured by number of office visits for flairs/ x-rays, follow up every 3-6 months documented as of this encounter Visit Diagnoses Not on filedocumented in this encounter Care Teams Dog Trainer Relationship Specialty Start Date End Date Mikayla Aquino MD PCP - General Family Medicine 07/06/20 documented as of this encounter
--- OUTSIDE RECORDS SUMMARY | 2024-06-19 00:18 | XMS_ITS | Encounter Summary ---
Author Organization [facility] [place] [address] Care Team Providers Care Top Closer Name Role Phone Mikayla Aquino MD Primary Care Provider [phone] Reason for Visit * Reason Comments Medication Refill Encounter Details Date Type Department Care Team (Late st Contact Info) Description 10/18/2023 Specialty [place] [address] Paulette Parekh [facility] Social History Tobacco Use Types Packs/Day Years Used Date Smoking Tobacco: Former Cigarettes Smokeless Tobacco: Never Comments:8 years ago Sex and Gender Information Value Date Recorded Sex Assigned at Not on file Gender Identity Not on file Sexual Orientation Not on file documented as of this encounter Progress Notes * Paulette Parekh Bernice - 10/18/2023 11:26 AM EST Clinical Management Plan: Refill Specialty Pharmacy Consultation; Paulette Parekh Bernice Comprehensive Medication Management (CMM) Crystal Felder Ms. Crystal Felder is a 58 y.o. (1965) female who was contacted in regard to a specialty medication refill reminder. patient requested a refill of Humira. A [...] reaction(s): rash Medication Reconciliation Discrepancies (compared to [facility] med list) No Specialty Pharmacy Refill Questionnaire More data exists 10/18/2023 Refill Questionnaire What is the name of the specialty medication you are refilling? Humira Are you taking any new medications? No Any new medical condition? No Any new allergies? No Any new side effects that are bothersome? No Adherence: Any missed doses? No Patient understands no changes to current drug regimen were made. Paulette Parekh RPH 10/18/23 11:28 AM documented in this encounter Plan of Treatment Upcoming Encounters Date Type Department Care Team (Late st Contact Info) Description 07/21/2024 1:00 PM EDT Office [place] [address] Isaiah Mcpherson MD [facility] [place] [address] documented as of this encounter Goals Goal Patient Goal Type Associated Problems Recent Progress Patient-Stated? Author [facility] Medication Compliance and Understanding Patient Facing Action Plan Not on track( 024 11:36 AM EDT) No Mckinley Noel [facility] Note: Reduce Joint damage and flairs, measured by number of office visits for flairs/ x-rays, follow up every 3-6 months documented as of this encounter Visit Diagnoses Not on filedocumented in this encounter Care Teams Top Closer Relationship Specialty Start Date End Date Mikayla Aquino MD PCP - General Family Medicine 07/06/20 documented as of this encounter
--- OUTSIDE RECORDS SUMMARY | 2024-06-19 00:18 | XMS_ITS | Encounter Summary ---
Author Organization [facility] [place] [address] Care Team Providers Care Section Hand Name Role Phone Mikayla Aquino MD Primary Care Provider [phone] Encounter Details Date Type Department Care Team (Latest Contact Info) Description 01/14/2024 Travel Social History Tobacco Use Types Packs/Day Years [...] 1:00 PM EDT Office [place] [address] Isaiah Mcpherson MD [facility] [place] [address] documented as of this encounter Goals Goal Patient Goal Type Associated Problems Recent Progress Patient-Stated? Author [facility] Medication Compliance and Understanding Patient Facing Action Plan Not on track( 024 11:36 AM EDT) No Mckinley Noel, [facility] Note: Reduce Joint damage and flairs, measured by number of office visits for flairs/ x-rays, follow up every 3-6 months documented as of this encounter Visit Diagnoses Not on filedocumented in this encounter Care Teams Section Hand Relationship Specialty Start Date End Date Mikayla Aquino MD PCP - General Family Medicine 07/06/20 documented as of this encounter
--- OUTSIDE RECORDS SUMMARY | 2024-06-19 00:18 | XMS_ITS | Encounter Summary ---
Author Organization [facility] [place] [address] Care Team Providers Care Emt Intermediate Name Role Phone Mikayla Aquino MD Primary Care Provider [phone] Reason for Visit * Reason Comments Specialty Pharmacy Review Adalimumab (Hu brett) Pen 40mg/0.8mL Encounter Details Date Type Department Care Team (Late st Contact Info) Description 10/31/2022 Specialty Pharmacy [place] [address] Chanell Dorman, [facility] Social History Tobacco Use Types Packs/Day Years Used Date Smoking Tobacco: Former Cigarettes Smokeless Tobacco: Never Comments:8 years ago Sex and Gender Information Value Date Recorded Sex Assigned at Not on file Gender Identity Not on file Sexual Orientation Not on file documented as of this encounter Progress Notes * Chanell Dorman - 10/31/2022 11:59 PM EST The [facility] has completed a benefits investigation for Crystal Jaramillo Felder to review their eligibility to fill at [facility]. Per patient's medication list they are prescribed Adalimumab (Humira) and the medication is currently filled at the [facility]. documented in this encounter Plan of Treatment Upcoming Encounters Date Type Department Care Team (Late st Contact Info) Description 07/21/2024 1:00 PM EDT Office [place] [address] Isaiah Mcpherson MD [facility] [place] [place] [address] documented as of this encounter Goals Goal Patient Goal Type Associated Problems Recent Progress Patient-Stated? Author [facility] Home Medication Compliance and Understanding Patient Facing Action Plan Not on track( 024 11:36 AM EDT) No Mckinley Noel, [facility] Note: Reduce Joint damage and flairs, measured by number of office visits for flairs/ x-rays, follow up every 3-6 months documented as of this encounter Visit Diagnoses Not on filedocumented in this encounter Care Teams Emt Intermediate Relationship Specialty Start Date End Date Mikayla Aquino MD PCP - General Family Medicine 07/06/20 documented as of this encounter
--- OUTSIDE RECORDS SUMMARY | 2024-06-19 00:18 | XMS_ITS | Encounter Summary ---
Author Organization [facility] [place] [address] Care Team Providers Care Fashion Show Director Name Role Phone Mikayla Aquino MD Primary Care Provider [phone] Reason for Visit * Reason Comments Follow-up Encounter Details Date Type Department Care Team (Late st Contact Info) Description 07/17/2023 1:30 PM EDT [place] [address] Isaiah Mcpherson MD [facility] [place] [address] Rheumatoid arthritis involving multiple sites with positive rheumatoid factor; High risk medication use; Primary osteoarthritis involving multiple joints; Fibromyalgia; Benign hypermobility syndrome; Fatigue, unspecified type; Biceps tendinitis of right upper extremity; Plantar fasciitis of right foot Social History Tobacco Use Types Packs/Day Years Used Date Smoking Tobacco: Former Cigarettes Smokeless Tobacco: Never Comments:8 years ago Sex and Gender Information Value Date Recorded Sex Assigned at Not on file Gender Identity Not on file Sexual Orientation Not on file documented as of this encounter Last Filed Vital Signs Vital Sign Reading Time Taken Comments Blood Pressure 125/63 07/17/2023 1:09 PM EDT Pulse 62 07/17/2023 1:09 PM EDT Temperature 36.6 ??C (97.9 ??F) 07/17/2023 1:09 PM ED T Respiratory Rate 17 07/17/2023 1:09 PM EDT Oxygen Saturation 99% 07/17/2023 1:09 PM EDT Inhaled Oxygen Concentration - - Weight 68.9 kg (152 lb) 07/17/2023 1:09 PM EDT Height 157.5 cm (5' 2) 07/17/2023 1:09 PM EDT Body Mass Index 27.8 07/17/2023 1:09 PM EDT documented in this encounter Progress Notes * Isaiah Mcpherson MD - 07/17/2023 1:30 PM EDT Rheumatology Clinic: Dr. Mcpherson 07/17/2023 [id number] Crystal Felder is seen in follow-up of her seropositive rheumatoid arthritis, early osteoarthritis,and fibromyalgia. For her RA, she continues on methotrexate and Humira and that is generally effective, although sometimes she wonders if the medications are working, including at her last visit on 10/31/2022. Please see that note for details. However on exam that visit we didn't find any evidence of rheumatoid activity. She is hypermobile and she also had some mild DIP and thumb degenerative disease. Her labs looked fine, including normal inflammatory markers. We also obtained x-rays of her hands which showed the expected mild OA of the first CMC's and IP joints. There were no erosions. 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 Today she doesn't seem as symptomatic and she did not bring up that she doesn't believe her rheumatoid arthritis is in good control this time. She admits to once again not being quite on track in terms of her Humira and methotrexate dosing. She had done this before and started to have more symptoms. We encouraged her to stick with the prescribed dosing, but she has trouble remembering that. We also told her at the last visit that she could be more liberal about her use of Tylenol, which is veryeffective for her residual aches and pains, especially at night where it really helps her to sleep well. She really hasn't changed her pattern on taking that either, saving it for particularly bad nights. Today she brought up for the first time that the methotrexate is causing some nausea the following day after dosing. This happens about half the time that she takes the methotrexate. This makes her not want to take the methotrexate at all, which may be the reason she occasionally just forgets and skips doses. After discussion, we decided to back off that from 20 mg to 15 mg a week and see if she tolerates it better. In terms of her current symptoms, her biggest problem is right shoulder pain and she points to the area of the biceps tendon insertion on the anterior shoulder. She has had shoulder tendinitis in thepast and has responded well to cortisone injections we've done. She also has pain in the thumbs, particular the IP joints and also at the right second MCP. But these are relatively mild. She has an on going problem with plantar fasciitis for which she saw a asian art curator in [place]. She just did someexercises and splinting. She has not had an injection. It tends to come and go. I told her if this persists, she could consider getting in touch with the asian art curator about a possible cortisone injection. On a social note, she has not contracted COVID again after an infection in 2021 when it went through the family, including her 88-year-old mother. However her daughter did get the infection more recently. Fortunately, her daughter, a pharmacist who works at the [employer] pharmacy here in [place],and her , who [place] but moved east and is now working for a [employer] company in [place], bought their own home near hers. They were living with Crystal on the farm for a while and that was quite stressful. She is happy about that and happy that her daughter, son-in-law, and their family are getting along well now, and are living nearby but not with her. 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 Patient Active Problem List Diagnosis Code Rheumatoid [...] Chronic throat pain R07.0, G89.29 Coccydynia M53.3 Medications 07/17/23 1312 Medication Sig Taking? folic acid (Vitamin B9) 1 mg tablet TAKE ONE TABLET BY MOUTH EVERY DAY Yes rOPINIRole (Requip) 0.5 mg tablet TAKE 1-3 TABLETS BY MOUTH AT BEDTIME NEEDED Yes metHOTREXate (TrexalL) 2.5 mg tablet TAKE EIGHT TABLETS BY MOUTH ONCE WEEKLY Yes Cyanocobalamin (Vitamin B-12) 2,000 mcg ER tablet Take 1,000 mcg by mouth daily. Yes Adalimumab (Humira Pen) 40 mg/0.8 mL Pen Injector Kit Inject 0.8 mLs subcutaneously every 14 days. Inject the contents of one pen (40 mg) subcutaneously once every [address]. [address] (Cymbalta) 60 mg Capsule, Delayed Release(E.C.) every 24 hours. Yes predniSONE (Deltasone) 5 mg Tablet 6 tabs X 2 days, then 5 tabs x 2 days, then 4 tabs x 2 days, then 3 tabs x 2 days, then 2 tabs x 2 days, then 1 tab x 2 days. Patient not taking: Reported on 10/31/2022 Physical Exam: She looks well and healthy. She is in better spirits today. Blood pressure 125/63, pulse 62, temperature 36.6 ??C (97.9 ??F), temperature source Temporal, resp. rate 17, height 157.5 cm (5' 2), weight 68.9 kg (152 lb), SpO2 99 %. 09/11/2017 11:23 AM 08/29/2018 1:31 PM 03/03/2019 2:19 AM 01/03/2021 10:59 AM 10/31/2022 2:55 AM myD-H RAPID-3 Responses RAPID-3 Function 2 2.66 3 3 2.33 RAPID-3 Pain 3.5 2.5 4 3.5 4 RADIP-3 Global 5 2.5 3 3.5 5 RAPID-3 Total Scores 10.5 (Moderate) 7.66 (Moderate) 10 (Moderate) 10 (Moderate) 11.33 (Moderate) Skin: Clear. HEENT: Unremarkable. Lungs: Clear. Heart: Regular rhythm and rate without murmur, gallop, or rub. Abdomen: Benign. No masses, tenderness, or organomegaly. Extremities: No edema. Good distal pulses. Musculoskeletal: She is hypermobile. She has mild early degenerative changes in the DIP joints and also the basilar and IP thumb joints, but not all that significant. Her left wrist was slightly warm, but otherwise normal. Right wrist is fine. Elbows and left shoulder move well. At the right shoulder, she is discretely tender over the biceps tendon insertion on the anterior shoulder, but she alsohas mild impingement signs. Of the two, clearly the biceps problem is the more prominent. Her lowerextremity exam is unchanged and without synovitis. We did not check her ongoing plantar fasciitis on the right Neuro: Grossly intact. Time Out: We took a time out and verified the patient's identity, and also verified the joint(s) kendal aspirated and/or injected. Procedure: After Betadine and alcohol prep, and ethyl chloride local, we entered the area of the right bicipital tendon anterior to the shoulder joint. Being careful not to inject the tendon itself, we injected the area with 40 mg of Depo-Medrol and 2 cc of Marcaine. The patient tolerated the procedure well. We gave the usual post-injection precautions, including watching for any signs of infection. Assessment: We had a long discussion about her situation. In general, she is continuing to do very well in terms of her inflammatory arthritis. She does have tendinitis in the right shoulder, predominantly bicipital tendinitis, but she also has an element of rotator cuff tendinitis. I asked her to let us know if the biceps tendon area injection works. She has been having some nausea after some of her methotrexate doses. That may be contributing to her missing doses and wanting to get off of it completely. I think she still probably needs it to control her arthritis. We agreed to have her go from 8 to 6 tablets, or 15 mg, a week and see if that alleviates the side effects. She then might be more willing to take it on a regular basis. We'll check methotrexate labs today. In terms of the right plantar fasciitis, I suggested that if it persists, she contact the asian art curator in [place] about a possible steroid injection. I also recommended that she wear shoes at all time, even getting out of bed at night to go to the bathroom, to avoid repeatedly aggravating the fasciitis. I'll see her in follow-up in 6 months. Total time spent on this visit: 40 minutes, in addition to the right shoulder injection. Visit code: 33481, 25. Visit Diagnoses: 1. Rheumatoid arthritis involving multiple sites with positive rheumatoid factor 2. High risk medication use 3. Primary osteoarthritis involving multiple joints 4. Fibromyalgia 5. Benign hypermobility syndrome 6. Fatigue, unspecified type 7. Biceps tendinitis of right upper extremity 8. Plantar fasciitis of right foot Latest Reference Range & Units 07/17/23 14:20 WBC 4.0 - 9.5 x10(3)/mcL 5.4 RBC 4.00 - 5.21 x10(6)/mcL 4.17 Hemoglobin 11.7 - 15.5 g/dL 13.2 Hematocrit 35.7 - 45.8 % 39.4 MCV 82.6 - 94.4 fL 94.5 (H) MCH 27.1 - 32.0 pg 31.7 MCHC 31.7 - 35.0 g/dL 33.5 RDWSD 37.0 - 46.0 fL 45.3 RDWCV 11.5 - 14.1 % 13.3 Platelets 145 - 357 x10(3)/mcL 284 MPV 7.6 - 12.9 fL 9.7 nRBC % Auto % 0.0 nRBC Abs Auto 0.000 - 0.000 x10(3)/mcL 0.000 Neutr Abs (ANC) 1.70 - 6.10 x10(3)/mcL 2.68 Neutrophils % % 50.0 Immature Gran % % 0.20 Lymphocytes % % 35.6 Monocytes % % 11.6 Eosinophils % % 1.9 Basophils % % 0.7 Abbie Gran Abs 0.00 - 0.04 x10(3)/mcL 0.01 Lymphocytes Abs 0.9 - 3.2 x10(3)/mcL 1.9 Monocyte Abs 0.3 - 0.9 x10(3)/mcL 0.6 Eosinophils Abs 0.0 - 0.4 x10(3)/mcL 0.1 Basophils Abs 0.0 - 0.1 x10(3)/mcL 0.0 Sed Rate 2 - 39 mm/hr 16 Sodium 135 - 145 mmol/L 142 Potassium 3.5 - 5.0 mmol/L 3.9 Chloride 98 - 107 mmol/L 104 CO2 22 - 31 mmol/L 28 Anion Gap 5 - 15 mmol/L 10 BUN 8 - 18 mg/dL 13 Creatinine 0.70 - 1.20 mg/dL 0.86 Estimated GFR >=60 mL/min/1.73 m?? 77 Calcium 8.5 - 10.5 mg/dL 9.4 Glucose Lvl 65 - 199 mg/dL 86 Total Protein 6.1 - 8.0 g/dL 7.3 Albumin 3.2 - 5.2 g/dL 4.3 Total Bilirubin 0.2 - 1.3 mg/dL 0.4 Alk Phos 35 - 105 unit/L 64 AST 0 - 30 unit/L 17 ALT 0 - 30 unit/L 23 CRP <=4.9 mg/L <3.0 documented in this encounter Plan of Treatment Upcoming Encounters Date Type Department Care Team (Late st Contact Info) Description 07/21/2024 1:00 PM EDT [place] [address] Isaiah Mcpherson MD [facility] RHEUMATOLOGY [place] [id number] documented as of this encounter Goals Goal Patient Goal Type Associated Problems Recent Progress Patient-Stated? Author [facility] Medication Compliance and Understanding Patient Facing Action Plan Not on track( 024 11:36 AM EDT) No Mckinley Noel, [facility] Note: Reduce Joint damage and flairs, measured by number of office visits for flairs/ x-rays, follow up every 3-6 months documented as of this encounter Procedures Procedure Name Priority Date/Time Associated Diagnosis Comments CRP, ACUTE INFLAMMATION Routine 07/17/2023 2:20 PM EDT Rheumatoid arthritis involving multiple sites with positive rheumatoid factor HEMOGRAM Routine 07/17/2023 2:20 PM EDT High risk medication use Rheumatoid arthritis involving multiple sites with positive rheumatoid factor DIFFERENTIAL, AUTOMATED Routine 07/17/2023 2:20 PM EDT High risk medication use Rheumatoid arthritis involving multiple sites with positive rheumatoid factor SEDIMENTATION RATE Routine 07/17/2023 2: 20 PM EDT Rheumatoid arthritis involving multiple sites with positive rheumatoid factor CBC (WITH DIFF) Routine 07/17/2023 2:20 PM EDT High risk medication use Rheumatoid arthritis involving multiple sites with positive rheumatoid factor COMPREHENSIVE METABOLIC PANEL Routine 07/17/2023 2:20 PM EDT High risk medication use Rheumatoid arthritis involving multiple sites with positive rheumatoid factor documented in this encounter Results * Differential, Automated (07/17/2023 2:20 PM EDT) Neutrophil % 50.0 % [facility] Neutrophil Absolute 2.68 1.70 - 6.10 x10(3)/[facility] Lymph % 35.6 % [facility] Lymphocytes Abs 1.9 0.9 - 3.2 x10(3)/[facility] Monocyte % 11.6 % [facility] Monocyte Abs 0.6 0.3 - 0.9 x10(3)/[facility] Eos % 1.9 % [facility] Eosinophils Abs 0.1 0.0 - 0.4 x10(3)/[facility] Basophil % 0.7 % [facility] Baso Absolute 0.0 0.0 - 0.1 x10(3)/[facility] Immature Gran % 0.20 % [facility] Comment: Immature granulocytes(IG's)percentage and absolute count will include metamyelocytes, myelocytes, and promyelocytes. Blood smears from CBCs yielding IG's will be scanned manually for concordance. If this scan disagrees with the automated IG or if promyelocytes are noted, a manual differential will be performed. Immature Gran Absolute 0.01 0.00 - 0.04 x10(3)/[facility] Blood 07/17/2023 2:20 PM EDT 07/17/2023 2:30 PM EDT Narrative Resulting Agency Comment Spec In Lab Isaiah Mcpherson MD HEMATOLOGY [facility] [place] [address] * (ABNORMAL) Hemogram (07/17/2023 2:20 PM EDT) White Blood Cell 5.4 4.0 - 9.5 x10(3)/mc L [facility] Red Blood Cell 4.17 4.00 - 5.21 x10(6)/mc L [facility] Hemoglobin 13.2 11.7 - 15.5 g/dL [facility] Hematocrit 39.4 35.7 - 45.8 % [facility] Mean Cell Volume 94.5(H) 82.6 - 94.4 fL [facility] Mean Cell Hemoglobin 31.7 27.1 - 32.0 pg [facility] Mean Cell Hemoglobin Concentration 33.5 31.7 - 35.0 g/dL [facility] Platelet 284 145 - 357 x10(3)/mc L [facility] RDW Standard Deviation 45.3 37.0 - 46.0 fL [facility] RDW coefficient of variation 13.3 11.5 - 14.1 % [facility] Mean Platelet Volume 9.7 7.6 - 12.9 fL [facility] NRBC% auto 0.0 % [facility] NRBC Absolute 0.000 0.000 - 0.000 x10(3)/mc L [facility] Blood 07/17/2023 2:20 PM EDT 07/17/2023 2:30 PM EDT Narrative Resulting Agency Comment Spec In Lab Isaiah Mcpherson MD HEMATOLOGY [facility] [place] [address] * Comprehensive metabolic panel (non-fasting) (07/17/2023 2:20 PM EDT) Glucose 86 65 - 199 mg/dL [facility] Comment:Diabetes: >=200 mg/d L plus symptoms Blood Urea Nitrogen 13 8 - 18 mg/dL [facility] Creatinine 0.86 0.70 - 1.20 mg/dL [facility] Sodium 142 135 - 145 mmol/L [facility] Potassium 3.9 3.5 - 5.0 mmol/L [facility] Comment: Please note: ??Patients with WBC >100,000 may have falsely elevated Potassium levels. ??For accurate Potassium quantification in these patients send serum separator tube (gold top) for subsequent determinations. ??Contact the Clinical Chemistry Laboratory if there are any questions. Chloride 104 98 - 107 mmol/L [facility] Carbon Dioxide 28 22 - 31 mmol/L [facility] Anion Gap 10 5 - 15 mmol/L [facility] Calcium 9.4 8.5 - 10.5 mg/dL [facility] Protein, Total 7.3 6.1 - 8.0 g/dL [facility] Albumin 4.3 3.2 - 5.2 g/dL [facility] Aspartate Aminotransferase 17 0 - 30 unit/L [facility] Alanine Aminotransferase 23 0 - 30 unit/L [facility] Alkaline Phosphatase 64 35 - 105 unit/L [facility] Bilirubin, Total 0.4 0.2 - 1.3 mg/dL [facility] Est Glomerular Filtration Rate 77 >=60 mL/min/1. 73 m?? [facility] Comment: This patient's estimated GFR was [...] and symptoms in addition to eGFR. Blood 07/17/2023 2:20 PM EDT 07/17/2023 2:30 PM EDT Narrative Resulting Agency Comment Spec In Lab Isaiah Mcpherson MD CHEMISTRY [facility] [place] [address] * CRP, acute inflammation (07/17/2023 2:20 PM EDT) C-Reactive Protein <3.0 <=4.9 mg/L [facility] Blood 07/17/2023 2:20 PM EDT 07/17/2023 2:30 PM EDT Narrative Resulting Agency Comment Spec In Lab Isaiah Mcpherson MD CHEMISTRY [facility] L[facility] Performing Organization Address [facility] Co de Phone Number [facility] [place] [address] * Sedimentation rate (07/17/2023 2:20 PM EDT) Sedimentation Rate Automated 16 2 - 39 mm/hr [facility] Comment: Effective October 07, 2019 new capillary photometric technology has resulted in a change in reference ranges. It is recommended that each ESR result be reviewed with its own age appropriate reference range. Blood 07/17/2023 2:20 PM EDT 07/17/2023 2:30 PM EDT Narrative Resulting Agency Comment Spec In Lab Isaiah Mcpherson MD HEMATOLOGY [facility] Performing Organization Address [facility] Co de Phone Number [facility] [place] [address] documented in this encounter Visit Diagnoses Diagnosis Rheumatoid arthritis involving multiple sites with positive rheumatoid factor High risk medication use Encounter for long-term (current) use of other medications Primary osteoarthritis involving multiple joints Fibromyalgia Mylagia and myositis, unspecified Benign hypermobility syndrome Milan-Danlos syndrome Fatigue, unspecified type Biceps tendinitis of right upper extremity Plantar fasciitis of right foot Plantar fascial fibromatosis documented in this encounter Administered Medications Inactive Administered Medications - up to 3 most recent administrations Medication Order MAR Action Action Date Dose Rate Site methylPREDNISolone acetate (DEPO-Medrol) (40 mg/mL) injection 40 mg 40 mg, Tendon Sheath Injection, ONCE, 1 dose, On Sailaja 07/18/23 at 1615, Routine Given 07/17/2023 2:05 PM EDT 40 mg documented in this encounter Care Teams Fashion Show Director Relationship Specialty Start Date End Date Mikayla Aquino MD PCP - General Family Medicine 07/06/20 documented as of this encounter
--- OUTSIDE RECORDS SUMMARY | 2024-06-19 00:18 | XMS_ITS | Encounter Summary ---
Author Organization [facility] [place] [address] Care Team Providers Care Civil Engineering Technician Name Role Phone Mikayla Aquino MD Primary Care Provider [phone] Reason for Visit * Reason Comments Medication Management Encounter Details Date Type Department Care Team (Late st Contact Info) Description 01/21/2023 Specialty [place] [id number] Guevara Joshua [facility] Social History Tobacco Use Types Packs/Day Years Used Date Smoking Tobacco: Former Cigarettes Smokeless Tobacco: Never Comments:8 years ago Sex and Gender Information Value Date Recorded Sex Assigned at Not on file Gender Identity Not on file Sexual Orientation Not on file documented as of this encounter Progress Notes * Guevara Joshua [facility] - 01/21/2023 3:10 PM EDT Clinical Management Plan: Refill Specialty Pharmacy Consultation; Guevara Joshua [facility] Comprehensive Medication Management (CMM) Crystal Felder Ms. [...] Allergies and Drug intolerance: Allergies Allergen Reactions ??? Bupropion Hcl Other reaction(s): anxiety, panic ??? Citalopram Nausea Only Other reaction(s): possible nausea ??? Nabumetone Rash Other reaction(s): rash Medication Reconciliation Discrepancies (compared to [facility] med list) No Specialty Pharmacy Refill Questionnaire 01/21/2023 Refill Questionnaire What is the name of the specialty medication you are refilling? Humira Are you taking any new medications? No Any new medical condition? No Any new allergies? No Any new side effects that are bothersome? No What date will you need this fill by? 01/30/2023 Multiple values from one day are sorted in reverse-chronological order Adherence: Any missed doses? No Patient understands no changes to current drug regimen were made. Guevara Joshua RPH 01/21/23 3:11 PM documented in this encounter Plan of Treatment Upcoming Encounters Date Type Department Care Team (Late st Contact Info) Description 07/21/2024 1:00 PM EDT [place] [address] Isaiah Mcpherson MD [facility] [place] [address] documented as of this encounter Goals Goal Patient Goal Type Associated Problems Recent Progress Patient-Stated? Author [facility] Medication Compliance and Understanding Patient Facing Action Plan Not on track( 024 11:36 AM EDT) No Mckinley Noel [facility] Note: Reduce Joint damage and flairs, measured by number of office visits for flairs/ x-rays, follow up every 3-6 months documented as of this encounter Visit Diagnoses Not on filedocumented in this encounter Care Teams Civil Engineering Technician Relationship Specialty Start Date End Date Mikayla Aquino MD PCP - General Family Medicine 07/06/20 documented as of this encounter
--- OUTSIDE RECORDS SUMMARY | 2024-06-19 00:18 | XMS_ITS | Encounter Summary ---
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 Name Role Phone Mikayla Aquino MD Primary Care Provider [phone] Encounter Details Date Type Department Care Team (Late st Contact Info) Description 10/31/2022 11:30 AM EST Office [place] [address] Isaiah Mcpherson MD [facility] [address] Fibromyalgia; High risk medication use; Iron deficiency anemia due to chronic blood loss; Rheumatoid arthritis involving multiple sites with positive rheumatoid factor; Primary osteoarthritis involving multiple joints; Fatigue, unspecified type Social History Tobacco Use Types Packs/Day Years [...] Sign Reading Time Taken Comments Blood Pressure 137/77 10/31/2022 11:23 AM EST Pulse 66 10/31/2022 11:23 AM EST Temperature 36.4 ??C (97.6 ??F) 10/31/2022 11:[address] Respiratory Rate - - Oxygen Saturation 100% 10/31/2022 11:23 AM EST Inhaled Oxygen Concentration - - Weight 72.6 kg (160 lb) 10/31/2022 11:23 AM EST Height 157.5 cm (5' 2) 10/31/2022 11:23 AM EST Body Mass Index 29.26 10/31/2022 11:23 AM EST documented in this encounter Progress Notes * Isaiah Mcpherson MD - 10/31/2022 11:30 AM EST Rheumatology Clinic: Dr. Mcpherson 10/31/2022 [id number] Crystal Felder is seen in follow-up of her seropositive rheumatoid arthritis, osteoarthritis, and fibromyalgia. She continues on methotrexate and Humira for her RA. At her last visit she was not doing as well, but it turns out she was not taking her Humira every 2 weeks as prescribed. She has backed off to about every 3 weeks. She also wasn't so regular in terms of her methotrexate dosing. She had some inflammatory arthralgias, but no synovitis on exam. Her labs looked fine. We encouraged her to take her medications regularly as scheduled. We also put her on a prednisone taper to cool things down. She did improve and finished the prednisone taper. But today she complains that she has continued to have problems. She has some general achiness, but has particular problems with her feet, including some plantar fasciitis for which she seen a brownfield redevelopment specialist up near [facility] in [place].She had x-rays. She has been doing some exercises he recommended and she did have some improvement when she saw him in follow-up. But now things are acting up again and she does not have a formal follow-up scheduled at this point. She describes ongoing pain in the bottom of her heels. In addition to the heel pain, she has a burning pain deep in her leg muscles at night. At that last visit, when things were acting up, she was under significant stress at home because offamily situations. Her daughter had moved back east from [place] and was working as a pharmacist nearby. She had left her who is a electrophysiology scientist doing his PhD work out there and was having trouble completing his thesis. He was about to come east and join the rest of the family in Crystal's home. She now reports that all worked out well. They reconciled. He is going to take a job in [place] andthey're going to moved to that area soon. So that stress has resolved, but she still is doing poorly. In the meantime, her daughter, the pharmacist, has told her how she has patients come in and tell her they're doing very well on their monthly infusions for rheumatoid arthritis. That generated a discussion about how well her inflammatory disease is in control. By the end of the interview and exam, it was my impression that the rheumatoid remains quiet on this current combination and the sourceof her pain is from other problems. She also endorsed again profound fatigue. She has complained about this for years and we've looked into it a number of times. Early on, she did have some significant iron deficiency, that was corrected, and she had some improvement, but that's been the exception.More recently her labs always come back normal. 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 She also reports that [facility]MAN went through the family, including her mother, who is about to turn 88, about a year ago. Unfortunately nobody got terribly ill. Patient Active Problem List Diagnosis Code ??? Rheumatoid arthritis M06.9 ??? Fibromyalgia M79.7 ??? Depression F32.A ??? Iron deficiency anemia due to chronic blood loss D50.0 ??? Sleep disturbance G47.9 ??? Uveitis H20.9 ??? Anxiety F41.9 ??? Enthesopathy of hip region M76.899 ??? Perimenopausal N95.1 ??? Myalgia M79.10 ??? Costochondritis M94.0 ??? High risk medication use Z79.899 ??? Pain in right hip M25.551 ??? Primary osteoarthritis of both hips M16.0 ??? Sacro-iliac pain M53.3 ??? Chronic pain of both knees M25.561, M25.562, G89.29 ??? Chronic throat pain R07.0, G89.29 ??? Coccydynia M53.3 Medications 10/31/22 1122 Medication Sig Taking? Adalimumab (Humira Pen) 40 mg/0.8 mL Pen Injector Kit Inject 0.8 mLs subcutaneously every 14 days. Inject the contents of one pen (40 mg) subcutaneously once every [address]. [address] (Cymbalta) 60 mg Capsule, Delayed Release(E.C.) every 24 hours. Yes rOPINIRole (REQUIP) 0.5 mg Tablet Take 1-3 tablets by mouth nightly as needed. Yes metHOTREXate 2.5 mg Tablet TAKE 8 TABLETS BY MOUTH ONCE WEEKLY Yes folic acid (Folvite) 1 mg Tablet TAKE ONE TABLET BY MOUTH EVERY DAY Yes predniSONE (Deltasone) 5 mg Tablet 6 tabs X 2 days, then 5 tabs x 2 days, then 4 tabs x 2 days, then 3 tabs x 2 days, then 2 tabs x 2 days, then 1 tab x 2 days. Patient not taking: Reported on 10/31/2022 Physical Exam: She looks in general well and healthy, but seems frustrated. Blood pressure 137/77, pulse 66, temperature 36.4 ??C (97.6 ??F), temperature source Temporal, height 157.5 cm (5' 2), weight 72.6 kg (160 lb), SpO2 100 %. myD-H RAPID-3 Responses 09/11/2017 08/29/2018 03/03/2019 01/03/2021 10/31/2022 RAPID-3 Function 2 2.66 3 3 2.33 RAPID-3 Pain 3.5 2.5 4 3.5 4 RADIP-3 Global 5 2.5 3 3.5 5 RAPID-3 Total Scores 10.5 (Moderate) 7.66 (Moderate) 10 (Moderate) 10 (Moderate) 11.33 (Moderate) Skin: Clear. HEENT: Unremarkable. Mask in place. Lungs: Clear. Heart: Regular rhythm and rate with rare premature beat with compensatory pause. No murmur, gallop,or rub. Abdomen: Benign. No masses, tenderness, or organomegaly. Extremities: No edema. Good distal pulses. Musculoskeletal: She is hypermobile. She distal phalanx changes suggestive of clubbing, but she's had these all her life. She has no synovitis in her hands. 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 Her MCPs are spared. Wrists are fine. Elbows move well. Her shoulders move well. Her hips move well. Her knees move well. Her ankles move well. She does have plantar fasciitis, right greater than left. Her distal feet have degenerative disease without synovitis. Neuro: Grossly intact. Assessment: We had a long discussion about her situation. I told her that I think Humira and methotrexate are adequately controlling her rheumatoid arthritis and that her pain now is from other sources, including degenerative disease and fibromyalgia. We'll check hand x-rays today to make sure we're not missing anything and we'll try and track down the x-rays the brownfield redevelopment specialist did. I suspect her pain is amplified by her fatigue and that in turn is related to her chronically poor sleep. We'll checklabs again today, but I suspect they won't be revealing. Towards the end of the visit, she brought up that she takes Tylenol at night sometimes, and when she does, she feels a lot better, sleeps better, and has less pain the following morning. When I asked her why doesn't she take Tylenol regularly, she says she is just someone who doesn't like to take medications in general. I told her that Tylenol is one of the safest medicines we have and if it is having that much benefit, she should definitely take it regularly. There should be no long-term consequences of that. She'll think about it. I asked her to let us know how it goes with that and we'll also review the results of today's lab work before making any other changes. She understood the plan. Total time spent on this visit: 55 minutes. Visit code: 43882. Visit Diagnoses: 1. Fibromyalgia 2. High risk medication use 3. Iron deficiency anemia due to chronic blood loss 4. Rheumatoid arthritis involving multiple sites with positive rheumatoid factor 5. Primary osteoarthritis involving multiple joints 6. Fatigue, unspecified type Latest Reference Range & Units 10/31/22 13:05 WBC 4.0 - 9.5 x10(3)/mcL 6.8 RBC 4.00 - 5.21 x10(6)/mcL 4.32 Hemoglobin 11.7 - 15.5 g/dL 13.5 Hematocrit 35.7 - 45.8 % 40.1 MCV 82.6 - 94.4 fL 92.8 MCH 27.1 - 32.0 pg 31.3 MCHC 31.7 - 35.0 g/dL 33.7 RDWSD 37.0 - 46.0 fL 44.6 RDWCV 11.5 - 14.1 % 13.2 Platelets 145 - 357 x10(3)/mcL 248 MPV 7.6 - 12.9 fL 9.5 nRBC % Auto % 0.0 nRBC Abs Auto 0.000 - 0.000 x10(3)/mcL 0.000 Neutr Abs (ANC) 1.70 - 6.10 x10(3)/mcL 3.60 Neutrophils % % 53.2 Immature Gran % % 0.30 Lymphocytes % % 31.6 Monocytes % % 10.7 Eosinophils % % 3.6 Basophils % % 0.6 Abbie Gran Abs 0.00 - 0.04 x10(3)/mcL 0.02 Lymphocytes Abs 0.9 - 3.2 x10(3)/mcL 2.1 Monocyte Abs 0.3 - 0.9 x10(3)/mcL 0.7 Eosinophils Abs 0.0 - 0.4 x10(3)/mcL 0.2 Basophils Abs 0.0 - 0.1 x10(3)/mcL 0.0 Sed Rate 2 - 39 mm/hr 14 Sodium 135 - 145 mmol/L 141 Potassium 3.5 - 5.0 mmol/L 4.3 Chloride 98 - 107 mmol/L 104 CO2 22 - 31 mmol/L 29 Anion Gap 5 - 15 mmol/L 8 BUN 8 - 18 mg/dL 16 Creatinine 0.70 - 1.20 mg/dL 0.76 Estimated GFR >=60 mL/min/1.73 m?? 90 Calcium 8.5 - 10.5 mg/dL 9.9 Glucose Lvl 65 - 199 mg/dL 100 Total Protein 6.1 - 8.0 g/dL 7.1 Albumin 3.2 - 5.2 g/dL 4.3 Total Bilirubin 0.2 - 1.3 mg/dL <0.2 (L) Alk Phos 35 - 105 unit/L 64 AST 0 - 30 unit/L 16 ALT 0 - 30 unit/L 16 Iron 30 - 150 mcg/dL 66 TIBC 250 - 450 mcg/dL 253 Iron Saturation 20 - 50 % 26 Ferritin 30 - 400 ng/mL 118 Vitamin B-12 232 - 1,245 pg/mL 294 CRP <=4.9 mg/L <3.0 TSH 0.27 - 4.20 mcIU/mL 3.95 (L): Data is abnormally low EXAMINATION: XR HAND MIN 3 VIEWS BILAT (GENERIC) CLINICAL HISTORY: RA. Erosions? (as entered by ordering provider in the order requisition) TECHNIQUE: PA, oblique, lateral, and ball-catcher's views of the bilateral hands. COMPARISON: Left hand and left finger radiographs 07/12/2021. Bilateral hand radiographs 10/14/2008 ?? FINDINGS: No focal soft tissue swelling. No dactylitis. ?? No soft tissue tophi. No soft tissue calcification. ?? There is diffuse osseous demineralization. ?? Similar slight bony irregularity of the left ulnar styloid process, without a definite lucent erosion. ?? No osseous erosions. No periostitis, ankylosis, or acro osteolysis. ?? There is scattered joint space narrowing of the bilateral finger interphalangeal joints. There is minimal osteophyte formation at the thumb interphalangeal joints and at the bilateral first carpal metacarpal joints. ?? No acute fracture. There is swan-neck deformity of the right index, long, and ring fingers and to a lesser extent the left long finger. On the ball-catcher's view, there is slight ulnar deviation at the left metacarpophalangeal joints. ?? IMPRESSION 1. Mild osteoarthropathy the bilateral first carpal metacarpal joints and of the bilateral thumb interphalangeal joints. ?? 2. No osseous erosions. ?? 3. [employer]-neck deformity of multiple right fingers, and to a lesser extent the left long finger, and ulnar deviation at the left metacarpophalangeal joints is nonspecific, but malalignment of the fingers can be seen in rheumatoid arthritis. documented in this encounter Plan of Treatment Upcoming Encounters Date Type Department Care Team (Late st Contact Info) Description 07/21/2024 1:00 PM EDT Office [place] [address] Isaiah Mcpherson MD [facility] [place] [address] documented as of this encounter Goals Goal Patient Goal Type Associated Problems Recent Progress Patient-Stated? Author [facility] Medication Compliance and Understanding Patient Facing Action Plan Not on track( 024 11:36 AM EDT) No Bert Mckinley J, [facility] Note: Reduce Joint damage and flairs, measured by number of office visits for flairs/ x-rays, follow up every 3-6 months documented as of this encounter Procedures Procedure Name Priority Date/Time Associated Diagnosis Comments HC C-REACTIVE PROTEIN Routine 10/31/2022 1:05 PM EST Rheumatoid arthritis involving multiple sites with positive rheumatoid factor EXTRACTABLE NUCLEAR ANTIGEN (HESHAM) AB Routine 10/31/2022 1:05 PM EST HEMOGRAM Routine 10/31/2022 1:05 PM EST Rheumatoid arthritis involving multiple sites with positive rheumatoid factor DIFFERENTIAL, AUTOMATED Routine 10/31/2022 1:05 PM EST Rheumatoid arthritis involving multiple sites with positive rheumatoid factor HC IRON BINDING CAPACITY Routine 10/31/2022 1:05 PM EST Iron deficiency anemia due to chronic blood loss HC ESR-SEDIMENTATION RATE, BLOOD Routine 10/31/2022 1:05 PM EST Rheumatoid arthritis involving multiple sites with positive rheumatoid factor HC CBC,PLT & AUTO DIFF Routine 1:05 PM EST Rheumatoid arthritis involving multiple sites with positive rheumatoid factor HC THYROID STIMULATING HORMONE, SERUM Routine 10/31/2022 1:05 PM EST Fibromyalgia Rheumatoid arthritis involving multiple sites with positive rheumatoid factor Fatigue, unspecified type HC FERRITIN, SERUM Routine 10/31/2022 1: 05 PM EST Iron deficiency anemia due to chronic blood loss HC VITAMIN B12 SERUM Routine 10/31/2022 1:05 PM EST High risk medication use COMPREHENSIVE METABOLIC PANEL Routine 10/31/2022 1:05 PM EST Rheumatoid arthritis involving multiple sites with positive rheumatoid factor documented in this encounter Results * (ABNORMAL) Extractable Nuclear Antigen (HESHAM) Ab (10/31/2022 1:05 PM EST) SS-A/Ro Ab 42.00(H) <=10.00 unit/mL [facility] Comment: <7 negative 7-10 equivocal >10 positive The SS-A antibody result was generated using fluoroenzyme immunoassay on the Phadia 250 analyzer. the semi-quantitative test is designed to detect IgG antibodies in human serum that are reactive to the SS-A (Ro) protein. Please note that as of 08/21/2022 that this testing is performed by the [facility] at [facility]. This change in testing location is associated with a change in testing method and reference intervals. Please review the results of this test in association with the posted reference intervals. SS-B/La Ab 0.70 <=10.00 unit/mL [facility] Comment: <7 negative 7-10 equivocal >10 positive The SS-B antibody result was generated using fluoroenzyme immunoassay on the Phadia 250 analyzer. the semi-quantitative test is designed to detect IgG antibodies in human serum that are reactive to the SS-B (La) protein. Please note that as of 08/21/2022 that this testing is performed by the [facility] at [facility]. This change in testing location is associated with a change in testing method and reference intervals. Please review the results of this test in association with the posted reference intervals. Scl-70 Ab <0.60 <=10.00 unit/mL [facility] Comment: <7 negative 7-10 equivocal >10 positive The Scl-70 antibody result was generated using fluoroenzyme immunoassay on the Phadia 250 analyzer. the semi-quantitative test is designed to detect IgG antibodies in human serum that are reactive to the Scl-70 protein. Please note that as of 08/21/2022 that this testing is performed by the [facility] at [facility]. This change in testing location is associated with a change in testing method and reference intervals. Please review the results of this test in association with the posted reference intervals. Sm () Ab <0.70 <=10.00 unit/mL [facility] Comment: <7 negative 7-10 equivocal >10 positive The Sm antibody result was generated using fluoroenzyme immunoassay on the Phadia 250 analyzer. the semi-quantitative test is designed to detect IgG antibodies in human serum that are reactive to the Sm protein. Please note that as of 08/21/2022 that this testing is performed by the [facility] at [facility]. This change in testing location is associated with a change in testing method and reference intervals. Please review the results of this test in association with the posted reference intervals. U1RNP Ab 2.00 <=10.00 unit/mL [facility] Comment: <5 negative 5-10 equivocal >10 positive The U1RNP antibody result was generated using fluoroenzyme immunoassay on the Phadia 250 analyzer. the semi-quantitative test is designed to detect IgG antibodies in human serum that are reactive to the U1RNP protein. Please note that as of 08/21/2022 that this testing is performed by the [facility] at [facility]. This change in testing location is associated with a change in testing method and reference intervals. Please review the results of this test in association with the posted reference intervals. Centromere Ab 0.50 <=10.00 unit/mL [facility] Comment: <7 negative 7-10 equivocal >10 positive The CENP antibody result was generated using fluoroenzyme immunoassay on the Phadia 250 analyzer. the semi-quantitative test is designed to detect IgG antibodies in human serum that are reactive to the Centromere B protein. Please note that as of 08/21/2022 that this testing is performed by the [facility] at [facility]. This change in testing location is associated with a change in testing method and reference intervals. Please review the results of this test in association with the posted reference intervals. Zoey-1 Ab 0.30 <=10.00 unit/mL [facility] Comment: <7 negative 7-10 equivocal >10 positive The Zoey-1 antibody result was generated using fluoroenzyme immunoassay on the Phadia 250 analyzer. the semi-quantitative test is designed to detect IgG antibodies in human serum that are reactive to the Zoey-1 protein. Please note that as of 08/21/2022 that this testing is performed by the [facility] at [facility]. This change in testing location is associated with a change in testing method and reference intervals. Please review the results of this test in association with the posted reference intervals. Blood Venous Draw / Unknown 10/31/2022 1:05 PM EST 11/05/2022 7:18 AM EST Narrative Resulting Agency Comment Spec In Lab Isaiah Mcpherson MD LAB SEND OUT ORDE RABLES Performing Organization Address City/[facility]/[place] [address] * Differential, Automated (10/31/2022 1:05 PM EST) Neutrophil % 53.2 % [facility] Neutrophil Absolute 3.60 1.70 - 6.10 x10(3)/[facility] Lymph % 31.6 % [facility] Lymphocytes Abs 2.1 0.9 - 3.2 x10(3)/[facility] Monocyte % 10.7 % [facility] Monocyte Abs 0.7 0.3 - 0.9 x10(3)/[facility] Eos % 3.6 % [facility] Eosinophils Abs 0.2 0.0 - 0.4 x10(3)/[facility] Basophil % 0.6 % [facility] Baso Absolute 0.0 0.0 - 0.1 x10(3)/[facility] Immature Gran % 0.30 % [facility] Comment: Immature granulocytes(IG's)percentage and absolute count will include metamyelocytes, myelocytes, and promyelocytes. Blood smears from CBCs yielding IG's will be scanned manually for concordance. If this scan disagrees with the automated IG or if promyelocytes are noted, a manual differential will be performed. Immature Gran Absolute 0.02 0.00 - 0.04 x10(3)/[facility] Blood 10/31/2022 1:05 PM EST 10/31/2022 1:10 PM EST Narrative Resulting Agency Comment Spec In Lab Isaiah Mcpherson MD HEMATOLOGY ORDERA BLES Performing Organization Address City/[facility]/[place] [address] * Hemogram (10/31/2022 1:05 PM EST) White Blood Cell 6.8 4.0 - 9.5 x10(3)/[facility] Red Blood Cell 4.32 4.00 - 5.21 x10(6)/[facility] Hemoglobin 13.5 11.7 - 15.5 g/dL [facility] Hematocrit 40.1 35.7 - 45.8 % [facility] Mean Cell Volume 92.8 82.6 - 94.4 fL [facility] Mean Cell Hemoglobin 31.3 27.1 - 32.0 pg [facility] Mean Cell Hemoglobin Concentration 33.7 31.7 - 35.0 g/dL [facility] Platelet 248 145 - 357 x10(3)/[facility] RDW Standard Deviation 44.6 37.0 - 46.0 fL [facility] RDW coefficient of variation 13.2 11.5 - 14.1 % [facility] Mean Platelet Volume 9.5 7.6 - 12.9 fL [facility] NRBC% auto 0.0 % [facility] NRBC Absolute 0.000 0.000 - 0.000 x10(3)/[facility] Blood 10/31/2022 1:05 PM EST 10/31/2022 1:10 PM EST Narrative Resulting Agency Comment Spec In Lab Isaiah Mcpherson MD HEMATOLOGY ORDERA BLES Performing Organization Address City/[facility]/ZIP Co de Phone Number [facility] [place] [address] * Vitamin B12 (10/31/2022 1:05 PM EST) Vitamin B12 294 232 - 1,245 pg/mL [facility] Blood 10/31/2022 1:05 PM EST 10/31/2022 1:10 PM EST Narrative Resulting Agency Comment Spec In Lab Isaiah Mcpherson MD CHEMISTRY ORDERAB LES Performing Organization Address City/[facility]/ZIP Co de Phone Number [facility] [place] [address] * Ferritin (10/31/2022 1:05 PM EST) Ferritin 118 30 - 400 ng/mL [facility] Comment: Pediatric reference ranges not verified at [facility], interpret with caution. Reference ranges for females greater than 50 years of age approach values for men, i.e., 30-400 ng/mL. Blood 10/31/2022 1:05 PM EST 10/31/2022 1:10 PM EST Narrative Resulting Agency Comment Spec In Lab Isaiah Mcpherson MD CHEMISTRY ORDERAB LES Performing Organization Address [facility] Co de Phone Number [facility] [place] [place] [address] * Iron and TIBC (10/31/2022 1:05 PM EST) Iron 66 30 - 150 mcg/dL [facility] TIBC 253 250 - 450 mcg/dL [facility] Iron Saturation 26 20 - 50 % [facility] Blood 10/31/2022 1:05 PM EST 10/31/2022 1:10 PM EST Narrative Resulting Agency Comment Spec In Lab Isaiah Mcpherson MD CHEMISTRY ORDERAB LES Performing Organization Address [facility] de Phone Number [facility] [place] [address] * TSH (10/31/2022 1:05 PM EST) Thyroid Stimulating Hormone 3.95 0.27 - 4.20 mcIU/mL [facility] Comment: Reference Interval (mcIU/mL): Females: ??First Trimester: 0.23-3.88 ??Second Trimester: 0.22-3.90 ??Third Trimester: 0.44-4.66 Blood 10/31/2022 1:05 PM EST 10/31/2022 1:10 PM EST Narrative Resulting Agency Comment Spec In Lab Isaiah Mcpherson MD CHEMISTRY ORDERAB LES Performing Organization Address [facility] de Phone Number [facility] [place] [place] [address] * Sedimentation rate (10/31/2022 1:05 PM EST) Sedimentation Rate Automated 14 2 - 39 mm/hr [facility] Comment: Effective October 07, 2019 new capillary photometric technology has resulted in a change in reference ranges. It is recommended that each ESR result be reviewed with its own age appropriate reference range. Blood 10/31/2022 1:05 PM EST 10/31/2022 1:10 PM EST Narrative Resulting Agency Comment Spec In Lab Isaiah Mcpherson MD HEMATOLOGY ORDERA BLES Performing Organization Address [facility] Co de Phone Number [facility] [place] [address] * CRP, acute inflammation (10/31/2022 1:05 PM EST) C-Reactive Protein <3.0 <=4.9 mg/L [facility] Blood 10/31/2022 1:05 PM EST 10/31/2022 1:10 PM EST Narrative Resulting Agency Comment Spec In Lab Isaiah Mcpherson MD CHEMISTRY ORDERAB LES Performing Organization Address [facility] Co de Phone Number [facility] [place] [address] * (ABNORMAL) Comprehensive metabolic panel (non-fasting) (10/31/2022 1:05 PM EST) Glucose 100 65 - 199 mg/dL [facility] Comment:Diabetes: >=200 mg/d L plus symptoms Blood Urea Nitrogen 16 8 - 18 mg/dL [facility] Creatinine 0.76 0.70 - 1.20 mg/dL [facility] Sodium 141 135 - 145 mmol/L [facility] Potassium 4.3 3.5 - 5.0 mmol/L [facility] Comment: Please note: ??Patients with WBC >100,000 may have falsely elevated Potassium levels. ??For accurate Potassium quantification in these patients send serum separator tube (gold top) for subsequent determinations. ??Contact the Clinical Chemistry Laboratory if there are any questions. Chloride 104 98 - 107 mmol/L [facility] Carbon Dioxide 29 22 - 31 mmol/L [facility] Anion Gap 8 5 - 15 mmol/L [facility] Calcium 9.9 8.5 - 10.5 mg/dL [facility] Protein, Total 7.1 6.1 - 8.0 g/dL [facility] Albumin 4.3 3.2 - 5.2 g/dL [facility] Aspartate Aminotransferase 16 0 - 30 unit/L [facility] Alanine Aminotransferase 16 0 - 30 unit/L [facility] Alkaline Phosphatase 64 35 - 105 unit/L [facility] Bilirubin, Total <0.2(L) 0.2 - 1.3 mg/dL [facility] Est Glomerular Filtration Rate 90 >=60 mL/min/1. 73 m?? [facility] Comment: This patient's estimated GFR was [...] and symptoms in addition to eGFR. Blood 10/31/2022 1:05 PM EST 10/31/2022 1:10 PM EST Narrative Resulting Agency Comment Spec In Lab Isaiah Mcpherson MD CHEMISTRY ORDERAB LES Performing Organization Address City/State/[facility] Co de Phone Number [facility] [place] [address] * XR Hand Min 3 views Bilat (Generic) (10/31/2022 12:49 PM EST) Anatomical Region Laterality Modality Hand Bilateral Digital Radiogra phy Impressions 10/31/2022 2:38 PM EST 1. 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 2. ??No osseous erosions. 3. ??[employer]-neck deformity of multiple right fingers, and to [...] who have questions please contact the health nurse wound care that requested your imaging first. ? Electronically signed by: Christine Singletary MD, [facility] ([phone]), at 10/31/2022 2:38 PM Narrative 10/31/2022 2:38 [...] interphalangeal joints. 2. No osseous erosions. 3. [employer]-neck deformity of multiple right fingers, and to [...] patients who have questions please contactthe health nurse wound care that requested your imaging first. Electronically signed by: Christine Singletary MD, [facility]([phone]), at 10/31/2022 2:38 PM Isaiah Mcpherson MD IMG DX ORDERABLES documented in this encounter Visit Diagnoses Diagnosis Fibromyalgia Mylagia and myositis, unspecified High risk medication use Encounter for long-term (current) use of other medications Iron deficiency anemia due to chronic blood loss Iron deficiency anemia secondary to blood loss (chronic) Rheumatoid arthritis involving multiple sites with positive rheumatoid factor Primary osteoarthritis involving multiple joints Fatigue, unspecified type Rheumatoid arthritis involving multiple sites with positive rheumatoid factor documented in this encounter Care Teams Sewing Machine Operator Plastic Zipper Relationship Specialty Start Date End Date Mikayla Aquino MD PCP - General Family Medicine 07/06/20 documented as of this encounter
--- OUTSIDE RECORDS SUMMARY | 2024-06-19 00:18 | XMS_ITS | Encounter Summary ---
Author Organization [facility] [place] [address] Care Team Providers Care Java Sql Developer Name Role Phone Mikayla Aquino MD Primary Care Provider [phone] Encounter Details Date Type Department Care Team (Late st Contact Info) Description 07/15/2023 [place] [phone] Isaiah Mcpherson MD [facility] [place] [address] High risk medication use; Rheumatoid arthritis involving multiple sites with positive [...] 1:00 PM EDT Office [place] [phone] Isaiah Mcpherson MD [facility] [place] [address] Scheduled Orders Name Type Priority Associated Diagnoses Orde r Schedule CBC (with Diff) Lab Routine High risk medication use Rheumatoid arthritis involving multiple sites with positive rheumatoid factor Every 6 months for 3 Occurrences starting 07/15/2023 until 07/15/2024, 1 completed Comprehensive metabolic panel (non-fasting) Lab Routine High risk medication use Rheumatoid arthritis involving multiple sites with positive rheumatoid factor Every 6 months for 3 Occurrences starting 07/15/2023 until 07/15/2024, 1 completed CRP, acute inflammation Lab Routine Rheumatoid arthritis involving multiple sites with positive rheumatoid factor Every 6 months for 3 Occurrences starting 07/15/2023 until 07/15/2024, 1 completed Sedimentation rate Lab Routine Rheumatoid arthritis involving multiple sites with positive rheumatoid factor Every 6 months for 3 Occurrences starting 07/15/2023 until 07/15/2024, 1 completed documented as of this encounter Goals Goal Patient Goal Type Associated Problems Recent Progress Patient-Stated? Author [facility] Medication Compliance and Understanding Patient Facing Action Plan Not on track( 024 11:36 AM EDT) No Mckinley Noel, [facility] Note: Reduce Joint damage and flairs, measured by number of office visits for flairs/ x-rays, follow up every 3-6 months documented as of this encounter Results * Sedimentation rate (07/17/2023 2:20 PM EDT) Sedimentation Rate Automated 16 2 - 39 mm/hr [facility] Comment: Effective October 07, 2019 new capillary photometric technology has resulted in a change in reference ranges. It is recommended that each ESR result be reviewed with its own age appropriate reference range. Blood 07/17/2023 2:20 PM EDT 07/17/2023 2:30 PM EDT Narrative Resulting Agency Comment Spec In Lab Isaiah Mcpherson MD HEMATOLOGY ORDERA BLES Performing Organization Address [facility] Co de Phone Number [facility] [place] [address] * CRP, acute inflammation (07/17/2023 2:20 PM EDT) C-Reactive Protein <3.0 <=4.9 mg/L [facility] Blood 07/17/2023 2:20 PM EDT 07/17/2023 2:30 PM EDT Narrative Resulting Agency Comment Spec In Lab Isaiah Mcpherson MD CHEMISTRY ORDERAB LES [facility] [place] [address] * Comprehensive metabolic panel (non-fasting) (07/17/2023 2:20 PM EDT) Glucose 86 65 - 199 mg/dL [facility] Comment:Diabetes: >=200 mg/d L plus symptoms Blood Urea Nitrogen 13 8 - 18 mg/dL [facility] Creatinine 0.86 0.70 - 1.20 mg/dL [facility] Sodium 142 135 - 145 mmol/L [facility] Potassium 3.9 3.5 - 5.0 mmol/L [facility] Comment: Please note: ??Patients with WBC >100,000 may have falsely elevated Potassium levels. ??For accurate Potassium quantification in these patients send serum separator tube (gold top) for subsequent determinations. ??Contact the Clinical Chemistry Laboratory if there are any questions. Chloride 104 98 - 107 mmol/L [facility] Carbon Dioxide 28 22 - 31 mmol/L [facility] Anion Gap 10 5 - 15 mmol/L [facility] Calcium 9.4 8.5 - 10.5 mg/dL [facility] Protein, Total 7.3 6.1 - 8.0 g/dL [facility] Albumin 4.3 3.2 - 5.2 g/dL [facility] Aspartate Aminotransferase 17 0 - 30 unit/L [facility] Alanine Aminotransferase 23 0 - 30 unit/L [facility] Alkaline Phosphatase 64 35 - 105 unit/L [facility] Bilirubin, Total 0.4 0.2 - 1.3 mg/dL [facility] Est Glomerular Filtration Rate 77 >=60 mL/min/1. 73 m?? [facility] Comment: This patient's estimated [...] Lab Isaiah Mcpherson MD CHEMISTRY ORDERAB LES [facility] [place] [address] documented in this encounter Visit Diagnoses Diagnosis High risk medication use Encounter for long-term (current) use of other medications Rheumatoid arthritis involving multiple sites with positive rheumatoid factor documented in this encounter Care Teams Java Sql Developer Relationship Specialty Start Date End Date Mikayla Aquino MD PCP - General Family Medicine 07/06/20 documented as of this encounter
--- OUTSIDE RECORDS SUMMARY | 2024-06-19 00:18 | XMS_ITS | Encounter Summary ---
Author Organization [facility] [place] [address] Care Team Providers Care Mosaic Floor Layer Name Role Phone Mikayla Aquino MD Primary Care Provider [phone] Reason for Visit * Reason Comments Prior Authorization Encounter Details Date Type Department Care Team (Late st Contact Info) Description 01/21/2023 Specialty [place] [phone] Tonie Zelaya, [facility] Social History Tobacco Use Types Packs/Day Years Used Date Smoking Tobacco: Former Cigarettes Smokeless Tobacco: Never Comments:8 years ago Sex and Gender Information Value Date Recorded Sex Assigned at Not on file Gender Identity Not on file Sexual Orientation Not on file documented as of this encounter Progress Notes * Tonie Zelaya - 01/21/2023 3:28 PM EDT [facility], Medication Prior Authorization Submission Patient: Crystal Felder Patient : 1965 Patient Address: [address] [address] (home) Medication Name: HUMIRA PEN 40 MG/0.8 ML SUBCUTANEOUS KIT Medication ID: [id number] Subscriber Insurance: [place] Medicaid Subscriber Insurance Comment: Fax: Physician: ISAIAH REDMOND Physician Comment: Sent Via: [facility] Gutierrez: [id number] Ref/Case/PA#: Medication Strength Frequency Requested: Humira Pen 40mg/0.8ml PNKT INJECT THE CONTENTS OF ONE PEN (40 MG) SUBCUTANEOUSLY EVERY 14 DAYS Qty/Day Supply: 12/25 New Start: Renewal Diagnosis & ICD-10 Code: Rheumatoid Arthritis M06.9 Patient Notified: Yes Submission Notes: - Reauthorization Tonie Zelaya 01/21/23 3:31 PM * Tonie Zelaya - 01/21/2023 3:28 PM EDT [facility], Prior Authorization Approval Medication Name: HUMIRA PEN 40 MG/0.8 ML SUBCUTANEOUS KIT Medication ID: [id number] Approval Dates: 01/21/2023 to 01/22/2024 Insurance requirements/notes: - Patient may fill with [facility] Other Notes: None Case/Reference #: [id number] Approval notification Received via: Fax Copay: $3.00 Copay assistance: None Copay Notes: NA Insurance mandated Pharmacy: [facility] Fillable at [facility]: Yes Patient Notified: Yes Pharmacy staff will be reaching out to the patient to inform them [facility] If applicable, a pharmacist will speak with the patient to offer our specialty pharmacy services and to arrange delivery of their medication. Tonie Zelaya 01/21/23 4:21 PM documented in this encounter Plan of Treatment Upcoming Encounters Date Type Department Care Team (Late st Contact Info) Description 07/21/2024 1:00 PM EDT [place] [address] Isaiah Redmond MD [facility] [place] [address] [place] [address] documented as of this encounter Goals Goal Patient Goal Type Associated Problems Recent Progress Patient-Stated? Author Home Medication Compliance and Understanding Patient Facing Action Plan Not on track( 024 11:36 AM EDT) No Mckinley Noel, [facility] Note: Reduce Joint damage and flairs, measured by number of office visits for flairs/ x-rays, follow up every 3-6 months documented as of this encounter Visit Diagnoses Not on filedocumented in this encounter Care Teams Mosaic Floor Layer Relationship Specialty Start Date End Date Mikayla Aquino MD PCP - General Family Medicine 07/06/20 documented as of this encounter
--- OUTSIDE RECORDS SUMMARY | 2024-06-19 00:18 | XMS_ITS | Encounter Summary ---
Author Organization [facility] [place] [address] Care Team Providers Care Recordist Name Role Phone Mikayla Aquino MD Primary Care Provider [phone] Reason for Visit * Reason Comments Medication Management Patient Education Encounter Details Date Type Department Care Team (Late st Contact Info) Description 12/20/2022 Specialty [place]acy [place] [address] Guevara Joshua [facility] Social History Tobacco Use Types Packs/Day Years Used Date Smoking Tobacco: Former Cigarettes Smokeless Tobacco: Never Comments:8 years ago Sex and Gender Information Value Date Recorded Sex Assigned at Not on file Gender Identity Not on file Sexual Orientation Not on file documented as of this encounter Progress Notes * Guevara Joshua [facility] - 12/20/2022 8:58 AM EST Specialty Pharmacy Follow Up Consultation; Guevara Joshua [facility] Comprehensive Medication Management (CMM) Crystal Felder Diagnosis: RA Therapy Start Date: Fall 2010 Contact in person or via telephone:Phone Ms. Crystal Felder is a 57 y.o. (1965) female who was contacted in regard to specialty medication. Spoke with patient regarding Humira. A review of the medication therapy was performed. The medication was Refilled as scheduled, and all medication related questions and concerns were addressed. The specialty pharmacy staff will follow up with the patient 5-7 days prior to next refill. Is the patient willing to proceed with the Clinical Assessment? Yes Summary and Recommendations: Today I spoke with Crystal Felder for a medication refill and a 6 month consultation. We reviewed her medications, allergies and medical conditions and noted that she has added vitamin B 12 for her mediation regimen. She reports no side effects or signs/symptoms of an infection. She reports no missed doses and is aware of the importance of adherence to the medication regimen. She has no questionsor concerns regarding the injection technique. She is aware of the specialty pharmacy and will contact us if any needs arise. Clinic follow-up needed: yes - routine Allergies and Drug intolerance: Allergies Allergen Reactions ??? Bupropion Hcl Other reaction(s): anxiety, panic ??? Citalopram Nausea Only Other reaction(s): possible nausea ??? Nabumetone Rash Other reaction(s): rash Problem List: Patient Active Problem List Diagnosis Code ??? [...] throat pain R07.0, G89.29 ??? Coccydynia M53.3 Special Dietary or Hydration Requirements: no Medication Reconciliation Discrepancies (compared to [facility] med list) yes - vitamin b 12 added Medication List: Current Outpatient Medications Medication Sig Dispense Refill ??? Adalimumab (Humira Pen) 40 mg/0.8 mL Pen Injector Kit Inject 0.8 mLs subcutaneously every 14 days. Inject the contents of one pen (40 mg) subcutaneously once every 14 days. 1 kit 11 ??? predniSONE (Deltasone) 5 mg Tablet 6 tabs X 2 days, then 5 tabs x 2 days, then 4 tabs x 2 days,then 3 tabs x 2 days, then 2 tabs x 2 days, then 1 tab x 2 days. (Patient not taking: Reported on 10/31/2022) 42 tablet 1 ??? DULoxetine DR (Cymbalta) 60 mg Capsule, Delayed Release(E.C.) every 24 hours. ??? rOPINIRole (REQUIP) 0.5 mg Tablet Take 1-3 tablets by mouth nightly as needed. 90 tablet 5 ??? metHOTREXate 2.5 mg Tablet TAKE 8 TABLETS BY MOUTH ONCE WEEKLY 104 tablet 3 ??? folic acid (Folvite) 1 mg Tablet TAKE ONE TABLET BY MOUTH EVERY DAY 90 tablet 3 No current facility-administered medications for this visit. Most Recent Vitals: Ht Readings from Last 1 Encounters: 10/31/22 157.5 cm (5' 2) Wt Readings from Last 3 Encounters: 10/31/22 72.6 kg (160 lb) 07/12/21 70.8 kg (156 lb) 07/06/20 71.7 kg (158 lb) Temp Readings from Last 3 Encounters: 10/31/22 36.4 ??C (97.6 ??F) (Temporal) 01/10/22 36.3 ??C (97.4 ??F) (Temporal) 07/12/21 36.6 ??C (97.8 ??F) (Temporal) BP Readings from Last 3 Encounters: 10/31/22 137/77 01/10/22 134/65 07/12/21 130/75 Pulse Readings from Last 3 Encounters: 10/31/22 66 01/10/22 56 07/12/21 53 There is no height or weight on file to calculate BMI. Pertinent Lab values: Lab Results Component Value Date NA 141 10/31/2022 K 4.3 10/31/2022 CL 104 10/31/2022 CO2 29 10/31/2022 BUN 16 10/31/2022 CREATININE 0.76 10/31/2022 GLUCOSE 100 10/31/2022 CALCIUM 9.9 10/31/2022 Lab Results Component Value Date ALT 16 10/31/2022 AST 16 10/31/2022 ALKPHOS 64 10/31/2022 BILITOT <0.2 (L) 10/31/2022 BILIDIR 0.1 03/05/2017 ALBUMIN 4.3 10/31/2022 PROT 7.1 10/31/2022 Lab Results Component Value Date WBC 6.8 10/31/2022 HGB 13.5 10/31/2022 HCT 40.1 10/31/2022 MCV 92.8 10/31/2022 PLATELET 248 10/31/2022 No results found for: HA1C Immunization History Administered Date(s) Administered ??? Influenza PF, Split 07/24/2013, 08/11/2014, 09/16/2015 ??? Influenza Vaccine PF, Quadrivalent 08/18/2019 ??? Pneumococcal Polyvalent 23 02/18/2006 ??? Td, adult 02/18/2006 ??? Tuberculin Skin Test, PPD 12/28/2010 Assessment and Recommendations: Patient Counseling Patient informed of specialty services: Yes Patient accepted offer to safety counselor: adherence/missed doses, doses and administration, pharmacy contact information, safe handling, storage, and disposal, possible adverse side effects and management, lab monitoring/follow up, cost of medications/cost implications Medication Management Summary Topics discussed: reviewed medication changes since last visit, safe handling, storage, and disposal discussed, possible adverse effects and management discussed, lab monitoring and follow-up discussed, cost of medications and cost implications discussed, adherence and missed doses discussed, reminder to refill or berry picker medication discussed, self-monitoring discussed, timing of medications discussed Time spent: 16-30 min Treatment Outcomes 12/20/2022 0904 Disease progression: Stable Patient Overall Status: Stable Reviewed in detail with patient: Dose appropriateness [...] including any variations from FDA approved dosing Patient verbalizes understanding and is able to read-back instructions on self-administration/injection, proper storage, drug stability, importance of adherence and management strategies, side effect avoidance and mitigation strategies, and interruptions in therapy: Yes Patient is aware a licensed pharmacist is available 24 hours a day, 7 days a week to discuss medication-related questions or concerns: Yes Patient verbalizes understanding of the common side effect profile of their medication. The patient is able to call 911 or seek urgent care if signs/symptoms of allergy or harmful adverse reactions occur: Yes Additional care/services needed: No Additional equipment/supplies required: No Patient satisfied with care/services provided: Yes Specialty Assessment: Physical and Cognitive Assessment: Functional limitations identified: No Cognitive limitations identified: No Concern regarding orientation/memory: No Concern with reasoning/judgement: No Is patient a fall risk: No Social Assessment: Does patient have a primary director of primary care: No Does patient have an emergency contact on file: Yes Does patient need referral to social service manager: No Does patient need referral to advocacy group: No Home Health Assessment: Is the patient in a safe home environment?: Yes Is the patient able to store their medication as directed?: Yes Does the patient have a support network at home?: Yes Reviewed potential home safety hazards with patient: Yes Economic Assessment: Patient is agreeable to medication copay: Yes Actual Copay: $: 3 Days Supply: 28 Welcome Packet and Rights and Responsibilities: Patient provided welcome packet/rights and responsibilities: Yes Date Confirmed: 03/30/19 Confirmation: Signature in [facility] Specialty Med Adherence Patient Demonstrates Understanding of Importance of Adherence: Yes Educational Information or Adherence Tools Provided: Yes How many doses does patient have remaining at home?: 0 Patient Reported X Missed Doses in the Last Month: 0 Provider-Estimated Medication Adherence Level: 90-100% Adherence Tools Used: calendar, directed education Therapy Assessment: myD-H RAPID-3 Responses 09/11/2017 08/29/2018 03/03/2019 01/03/2021 10/31/2022 RAPID-3 Function 2 2.66 3 3 2.33 RAPID-3 Pain 3.5 2.5 4 3.5 4 RADIP-3 Global 5 2.5 3 3.5 5 RAPID-3 Total Scores 10.5 (Moderate) 7.66 (Moderate) 10 (Moderate) 10 (Moderate) 11.33 (Moderate) Current Medication Dosing/Route/Frequency: Humira 40 mg subq q14d Appropriate Therapy: Yes Patient-Reported Side Effects: no Occurrence of recent infections: no Patient Counseling: Administration issues identified: no Rotation of injection sites: Yes Medication room temperature prior to injection: Yes Effective: Yes Current joints affected: none currently Current pain rating (1-10): 2 Estimated duration of morning joint stiffness: yes some in the morning and night, unknown duration Estimated number of recent flares: yes - one in the finger and ankle Recent systemic corticosteroid use: no Treatment Outcome: Therapy continued Patient Goals: Patient's specific desired goal: maintain current pain level Measured by: pain scale Time-frame to meet goal: 6 months Is the patient on track to achieve goals of therapy? Yes If no, what are the barriers and action plan to reach the goal: n/a On a scale of 1-10 the patient rates their quality of life: 8 Care Plan and Interventions: Care Plan Reviewed and Approved by both Pharmacist and Patient: Yes Did Care Plan Change? No If yes: Change to plans of care based on: Patient's request: n/a Condition: n/a Response to therapy: n/a Provider request: n/a Follow-up needed: No Interventions (if applicable): no [email or web address] Patient experienced change in condition that affects treatment: no Patient Satisfied with Therapy: yes - she is Pharmacist follow-up needed: Yes Delivery Method: Delivery Patient understands no changes to current drug regimen were made at the appointment and that [facility] isproviding recommendations (summary located at top of note) for provider review and follow up. Guevara Joshua RPH 12/20/22 9:05 AM documented in this encounter Plan of Treatment Upcoming Encounters Date Type Department Care Team (Late st Contact Info) Description 07/21/2024 1:00 PM EDT Office Visit [place] [address] Isaiah Mcpherson MD [facility] [place] [address] documented as of this encounter Goals Goal Patient Goal Type Associated Problems Recent Progress Patient-Stated? Author [facility] Medication Compliance and Understanding Patient Facing Action Plan Not on track( 024 11:36 AM EDT) No Mckinley Noel, [facility] Note: Reduce Joint damage and flairs, measured by number of office visits for flairs/ x-rays, follow up every 3-6 months documented as of this encounter Visit Diagnoses Not on filedocumented in this encounter Care Teams Recordist Relationship Specialty Start Date End Date Mikayla Aquino MD PCP - General Family Medicine 07/06/20 documented as of this encounter
--- OUTSIDE RECORDS SUMMARY | 2024-06-19 00:18 | XMS_ITS | Encounter Summary ---
Author Organization [facility] [place] [address] Care Team Providers Care Corporate Event Planner Name Role Phone Mikayla Aquino MD Primary Care Provider [phone] Reason for Visit * Reason Comments Medication Refill Medication Management Encounter Details Date Type Department Care Team (Late st Contact Info) Description 07/04/2023 Specialty [place] [address] Kali Vasquez, [facility] Social History Tobacco Use Types Packs/Day Years Used Date Smoking Tobacco: Former Cigarettes Smokeless Tobacco: Never Comments:8 years ago Sex and Gender Information Value Date Recorded Sex Assigned at Not on file Gender Identity Not on file Sexual Orientation Not on file documented as of this encounter Progress Notes * Kali Vasquez [facility] - 07/04/2023 1:12 PM EDT Clinical Management Plan: Refill Specialty Pharmacy Consultation; Kali Vasquez [facility] Comprehensive Medication Management (CMM) Crystal Felder MsPaulino Felder is a 58 y.o. (1965) female who was contacted in regard to a specialty medication refill reminder. Contact made with patient regarding HUMIRA. A review of the medication therapywas performed. [...] reaction(s): rash Medication Reconciliation Discrepancies (compared to [facility] med list) No Specialty Pharmacy Refill Questionnaire More data exists 07/04/2023 Refill Questionnaire What is the name of the specialty medication you are refilling? Humira Are you taking any new medications? No Any new medical condition? No Any new allergies? No Any new side effects that are bothersome? No What date will you need this fill by? 07/14/2023 Adherence: Any missed doses? No Patient understands no changes to current drug regimen were made. Kali Vasquez RPH 07/04/23 1:13 PM documented in this encounter Plan of Treatment Upcoming Encounters Date Type Department Care Team (Late st Contact Info) Description 07/21/2024 1:00 PM EDT Office [place] [address] Isaiah Mcpherson MD [facility] [place] [address] documented as of this encounter Goals Goal Patient Goal Type Associated Problems Recent Progress Patient-Stated? Author [facility] Medication Compliance and Understanding Patient Facing Action Plan Not on track( 024 11:36 AM EDT) No Mckinley Noel, [facility] Note: Reduce Joint damage and flairs, measured by number of office visits for flairs/ x-rays, follow up every 3-6 months documented as of this encounter Visit Diagnoses Not on filedocumented in this encounter Care Teams Corporate Event Planner Relationship Specialty Start Date End Date Mikayla Aquino MD PCP - General Family Medicine 07/06/20 documented as of this encounter
--- OUTSIDE RECORDS SUMMARY | 2024-06-19 00:18 | XMS_ITS | Encounter Summary ---
Author Organization [facility] [place] [address] Care Team Providers Care Electric Accounting Machine Operator Name Role Phone Mikayla Aquino MD Primary Care Provider [phone] Reason for Visit * Reason Comments Medication Management Encounter Details Date Type Department Care Team (Late st Contact Info) Description 11/22/2022 Specialty [place] [phone] Guevara Joshua [facility] Social History Tobacco Use Types Packs/Day Years Used Date Smoking Tobacco: Former Cigarettes Smokeless Tobacco: Never Comments:8 years ago Sex and Gender Information Value Date Recorded Sex Assigned at Not on file Gender Identity Not on file Sexual Orientation Not on file documented as of this encounter Progress Notes * Guevara Joshua [facility] - 11/22/2022 11:46 AM EST Clinical Management Plan: Refill Specialty Pharmacy Consultation; Guevara Joshua [facility] Comprehensive Medication Management (CMM) Crystal [...] reaction(s): rash Medication Reconciliation Discrepancies (compared to [facility] med list) No Specialty Pharmacy Refill Questionnaire Refill Questionnaire 11/22/2022 What is the name of the specialty medication you are refilling? Humira Are you taking any new medications? No Please explain - Any new medical condition? No Any new allergies? No Any new side effects that are bothersome? No What date will you need this fill by? 11/26/2022 Adherence: Any missed doses? No Patient understands no changes to current drug regimen were made. Guevara Joshua RPH 11/22/22 11:47 AM documented in this encounter Plan of Treatment Upcoming Encounters Date Type Department Care Team (Late st Contact Info) Description 07/21/2024 1:00 PM EDT Office [place] [address] Isaiah Mcpherson MD [facility] [place] [address] documented as of this encounter Goals Goal Patient Goal Type Associated Problems Recent Progress Patient-Stated? Author [facility] Medication Compliance and Understanding Patient Facing Action Plan Not on track( 024 11:36 AM EDT) No Mckinley Noel [facility] Note: Reduce Joint damage and flairs, measured by number of office visits for flairs/ x-rays, follow up every 3-6 months documented as of this encounter Visit Diagnoses Not on filedocumented in this encounter Care Teams Electric Accounting Machine Operator Relationship Specialty Start Date End Date Mikayla Aquino MD PCP - General Family Medicine 07/06/20 documented as of this encounter
--- OUTSIDE RECORDS SUMMARY | 2024-06-19 00:18 | XMS_ITS | Encounter Summary ---
Author Organization [facility] [place] [address] Care Team Providers Care Surgical Device Sales Representative Name Role Phone Mikayla Aquino MD Primary Care Provider [phone] Encounter Details Date Type Department Care Team (Latest Contact Info) Description 07/17/2023 Travel Social History Tobacco Use Types Packs/Day [...] 1:00 PM EDT Office [place] [address] Isaiah Mcpherson MD [facility] [address] documented as of this encounter Goals Goal Patient Goal Type Associated Problems Recent Progress Patient-Stated? Author [facility] Medication Compliance and Understanding Patient Facing Action Plan Not on track( 024 11:36 AM EDT) No Mckinley Noel, [facility] Note: Reduce Joint damage and flairs, measured by number of office visits for flairs/ x-rays, follow up every 3-6 months documented as of this encounter Visit Diagnoses Not on filedocumented in this encounter Care Teams Surgical Device Sales Representative Relationship Specialty Start Date End Date Mikayla Aquino MD PCP - General Family Medicine 07/06/20 documented as of this encounter
--- OUTSIDE RECORDS SUMMARY | 2024-06-19 00:18 | XMS_ITS | Encounter Summary ---
Author Organization [facility] [place] [address] Care Team Providers Care Maintenance Shop Manager Name Role Phone Mikayla Aquino MD Primary Care Provider [phone] Reason for Visit * Reason Comments Medication Management Specialty Refill Management Encounter Details Date Type Department Care Team (Late st Contact Info) Description 08/15/2023 Specialty [place] [phone] Juan Jose Degroot [facility] Social History Tobacco Use Types Packs/Day Years Used Date Smoking Tobacco: Former Cigarettes Smokeless Tobacco: Never Comments:8 years ago Sex and Gender Information Value Date Recorded Sex Assigned at Not on file Gender Identity Not on file Sexual Orientation Not on file documented as of this encounter Progress Notes * Juan Jose Degroot [facility] - 08/15/2023 1:30 PM EDT Clinical Management Plan: Refill Specialty Pharmacy Consultation; Juan Jose Degroot [facility] Comprehensive Medication Management (CMM) Crystal Felder Ms. [...] to [facility] med list) No Specialty Pharmacy Refill Questionnaire More data exists 08/15/2023 Refill Questionnaire What is the name of the specialty medication you are refilling? humira Are you taking any new medications? No Any new medical condition? No Any new allergies? No Any new side effects that are bothersome? No What date will you need this fill by? 08/19/2023 Adherence: Any missed doses? No Patient understands no changes to current drug regimen were made. Juan Jose Degroot RPH 08/15/23 1:31 PM documented in this encounter Plan of Treatment Upcoming Encounters Date Type Department Care Team (Late st Contact Info) Description 07/21/2024 1:00 PM EDT Office [place] [address] Isaiah Mcpherson MD [facility] [place] [address] documented as of this encounter Goals Goal Patient Goal Type Associated Problems Recent Progress Patient-Stated? Author [facility] Medication Compliance and Understanding Patient Facing Action Plan Not on track( 024 11:36 AM EDT) No Mckinley Noel [facility] Note: Reduce Joint damage and flairs, measured by number of office visits for flairs/ x-rays, follow up every 3-6 months documented as of this encounter Visit Diagnoses Not on filedocumented in this encounter Care Teams Maintenance Shop Manager Relationship Specialty Start Date End Date Mikayla Aquino MD PCP - General Family Medicine 07/06/20 documented as of this encounter
--- OUTSIDE RECORDS SUMMARY | 2024-06-19 00:18 | XMS_ITS | Encounter Summary ---
[place] [address] Care Team Providers Care Clin Tech Name Role Phone Mikayla Aquino MD Primary Care Provider [phone] Encounter Details Date Type Department Care Team (Late st Contact Info) Description 02/26/2023 Specialty Pharm[place] [phone] Tonie Zelaya, [facility] Social History Tobacco Use Types Packs/Day Years Used Date Smoking Tobacco: Former Cigarettes Smokeless Tobacco: Never Comments:8 years ago Sex and Gender Information Value Date Recorded Sex Assigned at Not on file Gender Identity Not on file Sexual Orientation Not on file documented as of this encounter Progress Notes * Tonie Zelaya - 02/26/2023 11:53 AM EDT Clinical Management Plan: Refill Specialty Pharmacy Consultation; Tonie Zelaya Comprehensive Medication Management (CMM) Crystalantonio Felder MsPaulino Felder is a 58 y.o. [...] reaction(s): rash Medication Reconciliation Discrepancies (compared to [facility] med list) No Specialty Pharmacy Refill Questionnaire 02/26/2023 Refill Questionnaire What is the name of the specialty medication you are refilling? Humira Are you taking any new medications? No Any new medical condition? No Any new allergies? No Any new side effects that are bothersome? No What date will you need this fill by? 03/07/2023 Adherence: Any missed doses? No Patient understands no changes to current drug regimen were made. Tonie Zelaya 02/26/23 11:55 AM documented in this encounter Plan of Treatment Upcoming Encounters Date Type Department Care Team (Late st Contact Info) Description 07/21/2024 1:00 PM EDT Office [place] [address] Isaiah Mcpherson MD [facility] [place] [address] documented as of this encounter Goals Goal Patient Goal Type Associated Problems Recent Progress Patient-Stated? Author [facility] Medication Compliance and Understanding Patient Facing Action Plan Not on track( 024 11:36 AM EDT) No Mckinley Noel, [facility] Note: Reduce Joint damage and flairs, measured by number of office visits for flairs/ x-rays, follow up every 3-6 months documented as of this encounter Visit Diagnoses Not on filedocumented in this encounter Care Teams Clin Tech Relationship Specialty Start Date End Date Mikayla Aquino MD PCP - General Family Medicine 07/06/20 documented as of this encounter
--- OUTSIDE RECORDS SUMMARY | 2024-06-19 00:18 | XMS_ITS | Encounter Summary ---
Author Organization [facility]ly [facility] [place] [address] Care Team Providers Care Etymology Professor Name Role Phone Mikayla Aquino MD Primary Care Provider [phone] Reason for Visit * Reason Comments Specialty Refill Management Humira Encounter Details Date Type Department Care Team (Late st Contact Info) Description 10/18/2022 Specialty [place] [id number] Marta Luke, [facility] Social History Tobacco Use Types Packs/Day Years Used Date Smoking Tobacco: Former Cigarettes Smokeless Tobacco: Never Comments:8 years ago Sex and Gender Information Value Date Recorded Sex Assigned at Not on file Gender Identity Not on file Sexual Orientation Not on file documented as of this encounter Progress Notes * Marta Luke - 10/18/2022 12:55 PM EST Clinical Management Plan: Refill Specialty Pharmacy Consultation; Marta Luke Comprehensive Medication Management (CMM) Crystal Felder Ms. [...] Care Plan: No Allergies and Drug intolerance: No Known Allergies Medication Reconciliation Discrepancies (compared to [facility] med list) No Specialty Pharmacy Refill Questionnaire Refill Questionnaire 10/18/2022 What is the name of the specialty medication you are refilling? Humira Are you taking any new medications? No Please explain - Any new medical condition? No Any new allergies? No Any new side effects that are bothersome? No What date will you need this fill by? 10/29/2022 Adherence: Any missed doses? No Patient understands no changes to current drug regimen were made. Marta Luke 10/18/22 12:56 PM documented in this encounter Plan of Treatment Upcoming Encounters Date Type Department Care Team (Late st Contact Info) Description 07/21/2024 1:00 PM EDT Office [place] [address] Isaiah Mcpherson MD [facility] [place] [place] [address] documented as of this encounter Goals Goal Patient Goal Type Associated Problems Recent Progress Patient-Stated? Author [facility] Medication Compliance and Understanding Patient Facing Action Plan Not on track( 024 11:36 AM EDT) No Mckinley Noel, [facility] Note: Reduce Joint damage and flairs, measured by number of office visits for flairs/ x-rays, follow up every 3-6 months documented as of this encounter Visit Diagnoses Not on filedocumented in this encounter Care Teams Etymology Professor Relationship Specialty Start Date End Date Mikayla Aquino MD PCP - General Family Medicine 07/06/20 documented as of this encounter
--- OUTSIDE RECORDS SUMMARY | 2024-06-19 00:18 | XMS_ITS | Encounter Summary ---
Author Organization [facility] [place] [address] Care Team Providers Care Molded Rubber Goods Cutter Name Role Phone Mikayla Aquino MD Primary Care Provider [phone] Reason for Visit * Reason Comments Medication Management Specialty Refill Management Encounter Details Date Type Department Care Team (Late st Contact Info) Description 11/20/2023 Specialty Pharmacy [place] [phone] Abelino Sarmiento [facility] Social History Tobacco Use Types Packs/Day Years Used Date Smoking Tobacco: Former Cigarettes Smokeless Tobacco: Never Comments:8 years ago Sex and Gender Information Value Date Recorded Sex Assigned at Not on file Gender Identity Not on file Sexual Orientation Not on file documented as of this encounter Progress Notes * Abelino Sarmiento Bernice - 11/20/2023 1:59 PM EST Clinical Management Plan: Refill Specialty [...] reaction(s): rash Medication Reconciliation Discrepancies (compared to [facility] med list) No Specialty Pharmacy Refill Questionnaire More data exists 11/20/2023 Refill Questionnaire What is the name of the specialty medication you are refilling? humira Are you taking any new medications? No Any new medical condition? No Any new allergies? No Any new side effects that are bothersome? No What date will you need this fill by? 11/27/2023 Adherence: Any missed doses? No Patient understands no changes to current drug regimen were made. Abelino Sarmiento RPH 11/20/23 2:00 PM documented in this encounter Plan of Treatment Upcoming Encounters Date Type Department Care Team (Late st Contact Info) Description 07/21/2024 1:00 PM EDT Office Visit [place] [address] Isaiah Mcpherson MD [facility] [place] [address] documented as of this encounter Goals Goal Patient Goal Type Associated Problems Recent Progress Patient-Stated? Author [facility] Medication Compliance and Understanding Patient Facing Action Plan Not on track( 024 11:36 AM EDT) No Mckinley Noel, [facility] Note: Reduce Joint damage and flairs, measured by number of office visits for flairs/ x-rays, follow up every 3-6 months documented as of this encounter Visit Diagnoses Not on filedocumented in this encounter Care Teams Molded Rubber Goods Cutter Relationship Specialty Start Date End Date Mikayla Aquino MD PCP - General Family Medicine 07/06/20 documented as of this encounter
--- OUTSIDE RECORDS SUMMARY | 2024-06-19 00:18 | XMS_ITS | Encounter Summary ---
Author Organization [facility] [place] [address] Care Team Providers Care Network Systems Integrator Name Role Phone Mikayla Aquino MD Primary Care Provider [phone] Reason for Visit * Reason Comments Medication Refill Encounter Details Date Type Department Care Team (Late st Contact Info) Description 04/12/2023 [place] [address] Isaiah Mcpherson MD [facility] [place] [place] [address] Social History Tobacco Use Types Packs/Day Years [...] 1:00 PM EDT [place] [address] Isaiah Mcpherson MD [facility] [place] [address] documented as of this encounter Goals Goal Patient Goal Type Associated Problems Recent Progress Patient-Stated? Author [facility] Medication Compliance and Understanding Patient Facing Action Plan Not on track( 024 11:36 AM EDT) No Mckinley Noel, [facility] Note: Reduce Joint damage and flairs, measured by number of office visits for flairs/ x-rays, follow up every 3-6 months documented as of this encounter Visit Diagnoses Not on filedocumented in this encounter Care Teams Network Systems Integrator Relationship Specialty Start Date End Date Mikayla Aquino MD PCP - General Family Medicine 07/06/20 documented as of this encounter
--- OUTSIDE RECORDS SUMMARY | 2024-06-19 00:18 | XMS_ITS | Encounter Summary ---
Author Organization [facility] [place] [address] Care Team Providers Care Perch Mender Name Role Phone Mikayla Aquino MD Primary Care Provider [phone] Encounter Details Date Type Department Care Team (Late st Contact Info) Description 09/11/2022 [place] [address] Isaiah Mcpherson MD [facility] [place] [place] [address] Social History Tobacco Use Types Packs/Day Years [...] 1:00 PM EDT [place] [address] Isaiah Mcpherson MD [facility] [place] [address] documented as of this encounter Goals Goal Patient Goal Type Associated Problems Recent Progress Patient-Stated? Author [facility] Medication Compliance and Understanding Patient Facing Action Plan Not on track( 024 11:36 AM EDT) No Mckinley Noel, [facility] Note: Reduce Joint damage and flairs, measured by number of office visits for flairs/ x-rays, follow up every 3-6 months documented as of this encounter Visit Diagnoses Not on filedocumented in this encounter Care Teams Perch Mender Relationship Specialty Start Date End Date Mikayla Aquino MD PCP - General Family Medicine 07/06/20 documented as of this encounter
--- OUTSIDE RECORDS SUMMARY | 2024-06-19 00:18 | XMS_ITS | Encounter Summary ---
[place] [address] Care Team Providers Care Armature [employer] Name Role Phone Mikayla Aquino MD Primary Care Provider [phone] Encounter Details Date Type Department Care Team (Late st Contact Info) Description 03/29/2023 Specialty [place] [address] Tonie Zelaya, [facility] Social History Tobacco Use Types Packs/Day Years Used Date Smoking Tobacco: Former Cigarettes Smokeless Tobacco: Never Comments:8 years ago Sex and Gender Information Value Date Recorded Sex Assigned at Not on file Gender Identity Not on file Sexual Orientation Not on file documented as of this encounter Progress Notes * Tonie Zelaya - 03/29/2023 11:08 AM EDT Clinical Management Plan: Refill Specialty [...] reaction(s): rash Medication Reconciliation Discrepancies (compared to [facility] med list) No Specialty Pharmacy Refill Questionnaire 03/29/2023 Refill Questionnaire What is the name of the specialty medication you are refilling? Humira Pen 40mg/0.8ml Are you taking any new medications? No Any new medical condition? No Any new allergies? No Any new side effects that are bothersome? No What date will you need this fill by? 04/05/2023 Adherence: Any missed doses? No Patient understands no changes to current drug regimen were made. Tonie Zelaya 03/29/23 11:10 AM documented in this encounter Plan of Treatment Upcoming Encounters Date Type Department Care Team (Late st Contact Info) Description 07/21/2024 1:00 PM EDT Office [place] [address] Isaiah Mcpherson MD [facility] [place] [address] documented as of this encounter Goals Goal Patient Goal Type Associated Problems Recent Progress Patient-Stated? Author [facility] Medication Compliance and Understanding Patient Facing Action Plan Not on track( 024 11:36 AM EDT) No Mckinley Noel, [facility] Note: Reduce Joint damage and flairs, measured by number of office visits for flairs/ x-rays, follow up every 3-6 months documented as of this encounter Visit Diagnoses Not on filedocumented in this encounter Care Teams Armature [employer] Relationship Specialty Start Date End Date Mikayla Aquino MD PCP - General Family Medicine 07/06/20 documented as of this encounter
--- OUTSIDE RECORDS SUMMARY | 2024-06-19 00:18 | XMS_ITS | Encounter Summary ---
Author Organization [facility] [place] [address] Care Team Providers Care Investigation Division Lieutenant Name Role Phone Mikayla Aquino MD Primary Care Provider [phone] Reason for Visit * Reason Comments Medication Management Specialty Refill Management Encounter Details Date Type Department Care Team (Late st Contact Info) Description 04/26/2023 Specialty [place] [address] Abelino Sarmiento [facility] Social History Tobacco Use Types Packs/Day Years Used Date Smoking Tobacco: Former Cigarettes Smokeless Tobacco: Never Comments:8 years ago Sex and Gender Information Value Date Recorded Sex Assigned at Not on file Gender Identity Not on file Sexual Orientation Not on file documented as of this encounter Progress Notes * Abelino Sarmiento Bernice - 04/26/2023 11:54 AM EDT Clinical Management Plan: Refill Specialty [...] beneficiary Provider: pharmacist - other Visit Type: [facility] Follow-up Time Spent: 1-15 min Method of Contact: by telephone Cognitive Ability: good Cognitive Impairment Status Verified this Year: no Allergies and Drug intolerance: Allergies Allergen Reactions Bupropion Hcl Other reaction(s): anxiety, panic Citalopram Nausea Only Other reaction(s): possible nausea Nabumetone Rash Other reaction(s): rash Medication Reconciliation Discrepancies (compared to eD med list) -one week late for an injection so on a new schedule but on track now Specialty Pharmacy Refill Questionnaire More data exists 04/26/2023 Refill Questionnaire What is the name of the specialty medication you are refilling? humira Are you taking any new medications? No Any new medical condition? No Any new allergies? No Any missed doses since your last fill? 1-2 Any new side effects that are bothersome? No What date will you need this fill by? 05/12/2023 Adherence: Specialty Med Adherence Patient Demonstrates Understanding [...] were made at the appointment and that [facility] is providing recommendations (summary located at top of note) for provider review and follow up. Abelino Sarmiento RPH 04/26/23 11:55 AM documented in this encounter Plan of Treatment Upcoming Encounters Date Type Department Care Team (Late st Contact Info) Description 07/21/2024 1:00 PM EDT [place] [address] Isaiah Mcpherson MD [facility] [place] [address] documented as of this encounter Goals Goal Patient Goal Type Associated Problems Recent Progress Patient-Stated? Author [facility] Medication Compliance and Understanding Patient Facing Action Plan Not on track( 024 11:36 AM EDT) No Mckinley Noel [facility] Note: Reduce Joint damage and flairs, measured by number of office visits for flairs/ x-rays, follow up every 3-6 months documented as of this encounter Visit Diagnoses Not on filedocumented in this encounter Care Teams Investigation Division Lieutenant Relationship Specialty Start Date End Date Mikayla Aquino MD PCP - General Family Medicine 07/06/20 documented as of this encounter
--- OUTSIDE RECORDS SUMMARY | 2024-06-19 00:18 | XMS_ITS | Encounter Summary ---
Author Organization [facility] [place] [address] Care Team Providers Care Granite Cutter Name Role Phone Mikayla Aquino MD Primary Care Provider [phone] Encounter Details Date Type Department Care Team (Late st Contact Info) Description 09/18/2023 Refill [place] [phone] Alla Guaman RN Rheumatoid arthritis involving multiple sites with positive rheumatoid factor Social History Tobacco Use Types Packs/Day Years Used Date Smoking Tobacco: Former Cigarettes Smokeless Tobacco: Never Comments:8 years ago Sex and Gender Information Value Date Recorded Sex Assigned at Not on file Gender Identity Not on file Sexual Orientation Not on file documented as of this encounter Miscellaneous Notes * Telephone Encounter - Alla Guaman RN - 09/18/2023 11:41 AM EST RTC to patient. Patient states she has been having some increased skin tightness, increased pain, especially when pressing the sides, and now bending up/down and straightening really hurts her.Denied redness, but has some warmth, and swelling. The Left hand, 1st finger, large knuckle is troublesome, and think this is RA. The patient states she had tried tylenol, and nothing really helped the pain. No other spots/areas to her body have been stating to bother her yet. Patient denied f/c/n/v/d and has been in pretty good health she feels.No rash. Patient is asking for a steroid taper as this is what she needs when the RA starts to bother her. The patient now uses [facility] [place] for her pharmacy needs. Message to Dr Mcpherson to review.Prepped a Prednisone RX for consideration. * Telephone Encounter - Alla Guaman RN - 09/18/2023 11:29 AM EST Copied from [facility] #[id number]. Topic: Specialty Dept CRMs - Triage >> Sep 18, 2023 11:25 AM January wrote: Triage Message Specialist: Vida Relationship (if other than patient-full name): Self Symptom: arthritis flare Has patient experienced symptom before yes If patient has experienced symptom before, when was the last time this occurred today Is patient currently having symptom yes When did symptom begin this morning Additional Comments: Patient sates that she thinks she needs to have a prednisone taper for her finger. Patient states there is a little swelling and a lot of pain in her finger documented in this encounter Plan of Treatment Upcoming Encounters Date Type Department Care Team (Late st Contact Info) Description 07/21/2024 1:00 PM EDT Office [place] [address] Isaiah Mcpherson MD [facility] [place] [address] documented as of this encounter Goals Goal Patient Goal Type Associated Problems Recent Progress Patient-Stated? Author [facility] Medication Compliance and Understanding Patient Facing Action Plan Not on track( 024 11:36 AM EDT) No Mckinley Noel, [facility] Note: Reduce Joint damage and flairs, measured by number of office visits for flairs/ x-rays, follow up every 3-6 months documented as of this encounter Visit Diagnoses Diagnosis Rheumatoid arthritis involving multiple sites with positive rheumatoid factor documented in this encounter Care Teams Granite Cutter Relationship Specialty Start Date End Date Mikayla Aquino MD PCP - General Family Medicine 07/06/20 documented as of this encounter
--- OUTSIDE RECORDS SUMMARY | 2024-06-19 00:18 | XMS_ITS | Encounter Summary ---
Author Organization [facility] [place] [address] Care Team Providers Care Public Information Specialist Name Role Phone Mikayla Aquino MD Primary Care Provider [phone] Reason for Visit * Reason Onset Date Comments Follow-up 11/06/2022 Encounter Details Date Type Department Care Team (Late st Contact Info) Description 11/06/2022 Telephone [place] [address] Chon Barraza, RN Follow-up Social History Tobacco Use Types Packs/Day Years Used Date Smoking Tobacco: Former Cigarettes Smokeless Tobacco: Never Comments:8 years ago Sex and Gender Information Value Date Recorded Sex Assigned at Not on file Gender Identity Not on file Sexual Orientation Not on file documented as of this encounter Miscellaneous Notes * Telephone Encounter - Alla Guaman RN - 11/13/2022 2:54 PM EST Please call. Labs look fine with one exception. Her blood counts, chemistries, iron levels, thyroidlevels all look fine. But her vitamin B12 level is on the low side of normal. Is she taking a B12 supplement? If not, ask her to take 1000 mcg of [id number] B12 a day and we'll repeat her levelin a month or two. ?? How did she do with taking the Tylenol regularly at night? ?? Thanks, Justin MCGARRY to patient. Explained the lab results and asked if she took B12 supplements? The patient mckeon not take these. Nurse instructed the patient to buy Vitamin B12 [address] Mcpherson suggested. Dr Mcpherson would like to repeat lab work later in about a minth. Patient said she also was taking Tylenol,was helping some. Plan made for patient to have repeat lab work at her Providers office Dr Aquino if possible? Their phone number is [phone]. * Telephone Encounter - Alla Guaman RN - 11/12/2022 4:54 PM EST Patient called, left message to call back. RTC to patient,busy signal. * Telephone Encounter - Chon Barraza RN - 11/06/2022 4:25 PM EST ----- Message from Isaiah Mcpherson MD sent at 11/04/2022 11:21 AM EST ----- Please call. Labs look fine with one exception. Her blood counts, chemistries, iron levels, thyroidlevels all look fine. But her vitamin B12 level is on the low side of normal. Is she taking a B12 supplement? If not, ask her to take 1000 mcg of [id number] B12 a day and we'll repeat her levelin a month or two. How did she do with taking the Tylenol regularly at night? Thanks, Justin Called Crystal to advise of message above, DEVNATE for her to RTC to nurse. Crystal RTC to nurse. RTC to Crystal and LM to RTC to nurse documented in this encounter Plan of Treatment Upcoming Encounters Date Type Department Care Team (Late st Contact Info) Description 07/21/2024 1:00 PM EDT Office [place] [phone] Isaiah Mcpherson MD [facility] [place] [place] [address] documented as of this encounter Goals Goal Patient Goal Type Associated Problems Recent Progress Patient-Stated? Author [facility] Medication Compliance and Understanding Patient Facing Action Plan Not on track( 024 11:36 AM EDT) No Mckinley Noel, [facility] Note: Reduce Joint damage and flairs, measured by number of office visits for flairs/ x-rays, follow up every 3-6 months documented as of this encounter Visit Diagnoses Diagnosis Vitamin B12 deficiency Other B-complex deficiencies documented in this encounter Care Teams Public Information Specialist Relationship Specialty Start Date End Date Mikayla Aquino MD PCP - General Family Medicine 07/06/20 documented as of this encounter
--- OUTSIDE RECORDS SUMMARY | 2024-06-19 00:18 | XMS_ITS | Encounter Summary ---
Author Organization [facility] [place] [address] Care Team Providers Care Edi Developer Name Role Phone Mikayla Aquino MD Primary Care Provider [phone] Reason for Visit * Reason Onset Date Comments Triage 12/23/2023 Encounter Details Date Type Department Care Team (Late st Contact Info) Description 12/23/2023 [place] [id number] Chon Barraza, microfilming document preparer Social History Tobacco Use Types Packs/Day Years Used Date Smoking Tobacco: Former Cigarettes Smokeless Tobacco: Never Comments:8 years ago Sex and Gender Information Value Date Recorded Sex Assigned at Not on file Gender Identity Not on file Sexual Orientation Not on file documented as of this encounter Miscellaneous Notes * Telephone Encounter - Chon Barraza RN - 12/23/2023 4:07 PM EST Copied from [facility] #[id number]. Topic: Specialty Dept CRMs - Triage >> Dec 23, 2023 2:21 PM Deandre Candice wrote: Triage Message Specialist: Dr. Mcpherson Relationship (if other than patient-full name): self Symptom: Thumb Cracking Has patient experienced symptom before no If patient has experienced symptom before, when was the last time this occurred no Is patient currently having symptom yes When did symptom begin a few days ago Additional Comments: Patient called in requesting a refill for predniSONE (Deltasone) 5 mg tablet [[id number]] but she mentioned that she is currently having symptoms. Please Call to Advise. ++++++++++++++++++++++++++++++++++++++++++++++++++++++++++++++++++++++++++++++++ ++++++++++++++++++++++++++++++++++++++++++++++++++++++++++++++++++++++ Reviewed EMR, Noted last visit MTX was being decreased. RTC to Crystal, reports 1 month ago thumb was swollen so she took Prednisone and it went away now her knuckle is sore and snaps causing her severe discomfort. Reports Right Thumb knuckle. Thinks she just needs another taper. Denies any fevers, chills, or any other joints that are bothering her. Denies any recent illness. Advised I will check in with Dr. Mcpherson for recommendations. Would like sent to [facility] in [place]. ++++++++++++++++++++++++++++++++++++++++++++++++++++++++++++++++++++++++++++++++ ++++++++++++++++++++ ++++++++++++++++++++++++++++++++++++++++++++++++++++++++++++++++++++ Isaiah Mcpherson MD sent to Chon Barraza RN Caller: Unspecified (2 days ago, 2:25 PM) I sent in prednisone taper with 1 refill to [facility]. Ask her to check back and report afterthe taper. Thanks, Justin ++++++++++++++++++++++++++++++++++++++++++++++++++++++++++++++++++++++++++++++++ +++++++++ RTC to Crystal, we discussed the Prednisone taper and she will complete and then check back [facility] documented in this encounter Plan of Treatment Upcoming Encounters Date Type Department Care Team (Late st Contact Info) Description 07/21/2024 1:00 PM EDT Office [place] [address] Isaiah Mcpherson MD [facility] [place] [address] documented as of this encounter Goals Goal Patient Goal Type Associated Problems Recent Progress Patient-Stated? Author [facility] Medication Compliance and Understanding Patient Facing Action Plan Not on track( 024 11:36 AM EDT) No Mckinley Noel, [facility] Note: Reduce Joint damage and flairs, measured by number of office visits for flairs/ x-rays, follow up every 3-6 months documented as of this encounter Visit Diagnoses Not on filedocumented in this encounter Care Teams Edi Developer Relationship Specialty Start Date End Date Mikayla Aquino MD PCP - General Family Medicine 07/06/20 documented as of this encounter
--- OUTSIDE RECORDS SUMMARY | 2024-06-19 00:18 | XMS_ITS | Encounter Summary ---
Author Organization [facility] [place] [address] Care Team Providers Care Data Entry Analyst Name Role Phone Mikayla Aquino MD Primary Care Provider [phone] Reason for Visit * Reason Comments Specialty Refill Management Specialty Pharmacy Review Encounter Details Date Type Department Care Team (Late st Contact Info) Description 06/04/2023 Specialty [place] [phone] Tenisha Calix [facility] Social History Tobacco Use Types Packs/Day Years Used Date Smoking Tobacco: Former Cigarettes Smokeless Tobacco: Never Comments:8 years ago Sex and Gender Information Value Date Recorded Sex Assigned at Not on file Gender Identity Not on file Sexual Orientation Not on file documented as of this encounter Progress Notes * Tenisha Calix [facility] - 06/04/2023 3:15 PM EDT Specialty Pharmacy Consultation; Tenisha Calix [facility] Comprehensive Medication Management (CMM): Specialty Consult, Opt Out Crystal Jaramillo Felder Diagnosis: RA Therapy Start Date: Fall 2010 Contact in person or via telephone: telephone Ms. Crystal Felder is a 58 y.o. (1965) female who was contacted in regard to specialty medication. Spoke with patient regarding Humira. A review of the medication therapy was performed. The medication was refilled as scheduled, and all medication related questions and concerns were addressed. The specialty pharmacy staff will follow up with the patient 7-10 days prior to next refill. Is the patient willing to proceed with the Clinical Assessment? No Summary and Recommendations: Crystal was contacted for a follow-up consultation for Humira. Medication dosing and administration were reviewed. Crystal confirmed that she has been injecting 1 40 mg pen of Humira under the skin every 14 days, and she feels that it has been helpful for management of RA. She denies missing doses but stated that she can sometimes be 1-4 days late with her injections. She did not like the idea of using a calendar to help her stay consistent with her injections, but was open to asking her daughter (who is also a pharmacist) to set phone alarms/reminders to keep a more consistent injection schedule. She denies any issues with the injection process. She reported that she prefers to inject into her upper outer thighs, and alternates between her left and right thigh every 2 weeks. Medication and allergy review was completed. Crystal denied any changes to her medications and no new drug interactions were identified. She asked today if it was okay to take her methotrexate on the same day that she injects her Humira, and I reassured her that this is okay to do. Otherwise, she did not have any new questions or concerns today. Economic Assessment: Patient is agreeable to medication copay: Yes Copay Amount: $3 Day Supply: 28 Date Needed: 06/16/23 Therapy Assessment: Appropriate Therapy: Yes Current Medication Dosing/Route/Frequency: Humira 40 mg/0.8 ml pen: inject the contents of 1 pen subcutaneously every 14 days Additional equipment/supplies required: no Care Plan Reviewed and Approved by Pharmacist : Yes Problem List: Patient Active Problem List Diagnosis [...] throat pain R07.0, G89.29 Coccydynia M53.3 Medications Reviewed: Yes Medications reconciled: No Allergies Reviewed:Yes Allergies reconciled: No Pharmacist follow-up needed: No Informed patient of specialty pharmacy services: Yes (Optional) Patient unenrolls from routine specialty pharmacy services (Y/N): (Optional) If yes, services unenrolled from: Welcome Packet and Rights and Responsibilities: Patient provided welcome packet/rights and responsibilities: Yes Date Confirmed: 03/30/19 Confirmation: Signature in [facility] -Patient is aware a licensed pharmacist is available 24 hours a day, 7 days a week to discuss medication-related questions or concerns: Yes -Patient verbalizes understanding of the common side effect profile of their medication. The patient is able to call 911 or seek urgent care if signs/symptoms of allergy or harmful adverse reactions occur: Yes Patient understands no changes to current drug regimen were made at the appointment and that the pharmacist is providing recommendations (summary located at top of note) for provider review and follow up. Tenisha Calix RPH 06/04/23 3:18 PM documented in this encounter Plan of Treatment Upcoming Encounters Date Type Department Care Team (Late st Contact Info) Description 07/21/2024 1:00 PM EDT Office [place] [address] Isaiah Mcpherson MD [facility] [place] [address] documented as of this encounter Goals Goal Patient Goal Type Associated Problems Recent Progress Patient-Stated? Author [facility] Medication Compliance and Understanding Patient Facing Action Plan Not on track( 024 11:36 AM EDT) No Mckinley Noel [facility] Note: Reduce Joint damage and flairs, measured by number of office visits for flairs/ x-rays, follow up every 3-6 months documented as of this encounter Visit Diagnoses Not on filedocumented in this encounter Care Teams Data Entry Analyst Relationship Specialty Start Date End Date Mikayla Aquino MD PCP - General Family Medicine 07/06/20 documented as of this encounter
--- OUTSIDE RECORDS SUMMARY | 2024-06-19 00:18 | XMS_ITS | Encounter Summary ---
Author Organization [facility] [place] [address] Care Team Providers Care Deck Supervisor Name Role Phone Mikayla Aquino MD Primary Care Provider [phone] Reason for Visit * Reason Comments Medication Refill Encounter Details Date Type Department Care Team (Late st Contact Info) Description 07/15/2023 Refill [place] [address] Isaiah Mcpherson MD [facility] [place] [address] [place] [address] Social History Tobacco Use Types Packs/Day Years [...] PM EDT Office [place] [address] Isaiah Mcpherson MD [facility] [place] [place] [address] documented as of this encounter Goals Goal Patient Goal Type Associated Problems Recent Progress Patient-Stated? Author [facility] Medication Compliance and Understanding Patient Facing Action Plan Not on track( 024 11:36 AM EDT) No Mckinley Noel, [facility] Note: Reduce Joint damage and flairs, measured by number of office visits for flairs/ x-rays, follow up every 3-6 months documented as of this encounter Visit Diagnoses Not on filedocumented in this encounter Care Teams Deck Supervisor Relationship Specialty Start Date End Date Mikayla Aquino MD PCP - General Family Medicine 07/06/20 documented as of this encounter
--- OUTSIDE RECORDS SUMMARY | 2024-06-19 00:18 | XMS_ITS | Encounter Summary ---
Author Organization [facility] [place] [address] Care Team Providers Care Tie Layer Name Role Phone Mikayla Aquino MD Primary Care Provider [phone] Encounter Details Date Type Department Care Team (Latest Contact Info) Description 10/31/2022 Travel Social History Tobacco Use Types Packs/Day [...] 1:00 PM EDT Office [place] [address] Isaiah Mcpherson MD [facility] [address] documented as of this encounter Goals Goal Patient Goal Type Associated Problems Recent Progress Patient-Stated? Author [facility] Medication Compliance and Understanding Patient Facing Action Plan Not on track( 024 11:36 AM EDT) No Mckinley Noel, [facility] Note: Reduce Joint damage and flairs, measured by number of office visits for flairs/ x-rays, follow up every 3-6 months documented as of this encounter Visit Diagnoses Not on filedocumented in this encounter Care Teams Tie Layer Relationship Specialty Start Date End Date Mikayla Aquino MD PCP - General Family Medicine 07/06/20 documented as of this encounter
--- OUTSIDE RECORDS SUMMARY | 2024-06-19 00:18 | XMS_ITS | Encounter Summary ---
Author Organization Formerly [facility] [place] [address] Care Team Providers Care Cleaning Supervisor Name Role Phone Mikayla Aquino MD Primary Care Provider [phone] Encounter Details Date Type Department Care Team (Late st Contact Info) Description 01/15/2024 1:30 PM EDT Office Visit [place] [address] Isaiah Mcpherson MD [facility] [place] [address] High risk medication use; Fibromyalgia; Rheumatoid arthritis involving multiple sites with positive rheumatoid factor; Primary osteoarthritis involving multiple joints; Fatigue, unspecified type; Myalgia, unspecified site Social History Tobacco Use Types Packs/Day Years [...] oz) 024 12:59 PM EDT w/shoes Height - - Body Mass Index 29.59 07/17/2023 1:09 PM EDT documented in this encounter Progress Notes * Isaiah Mcpherson MD - 01/15/2024 1:30 PM EDT Rheumatology Clinic: Dr. Mcpherson 01/15/2024 [id number] Crystal Felder is seen in follow-up of her seropositive rheumatoid arthritis that has done well on a combination of methotrexate and Humira. She also has early osteoarthritis and fibromyalgia. She contacted us in November about some swelling and pain in the right thumb, focused around the IP joint.She had put herself on a prednisone taper and that brought the swelling down, but she continued to have pain and a sense of catching there. She contacted us on 12/23/2023 and we sent in another prescription for prednisone. That definitely helped, but she still has a sense of catching at the IP jointassociated with some pain. It doesn't sound particularly inflammatory at this point. She is not having flexion triggering of the thumb. The last time she was in back on 07/17/2023, she had some pain in her right shoulder that we localized to the biceps tendon. We did an injection there and that was very helpful. In fact, she had forgotten about the shoulder pain today until we brought it up. Her biggest complaint today is some pain and weakness in both of her anterior thighs. She wonders if it is somehow related to the Humira shots, which she alternates between both sides, although she goes in laterally. She feels some thickening of the skin where she does the injection sites and it's a little bit tender there. But the problem anteriorly is more a sensitivity rather than pain, and some weakness when she engages those muscles, such as to stand up or go up stairs. She really does notdenies neurogenic claudication symptoms. She has found that the cold aggravates these muscle problems and warmth makes it better. She definitely feels this is in the muscles and not in the joints. She has also had some minimal pain in her left ankle that comes and goes. And also at times her right wrist can be painful, but without any evidence of inflammation and related only to certain activities. 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 It has gotten to the point where she cannot unscrew a sealed lizz jar because it's just too painful on that right wrist. But all in all, she is actually doing pretty well. 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 They put out a product called [employer] yogurt. It is now being distributed to 20 stores, mainly co-ops, in the area. Obviouslythis involves a lot of work. Just in terms of small cups of yogurt, they put out 600 or so cups, once or twice a week. In addition, they also do larger containers of lemon, vanilla, maple, and plain y ogurt. They are at their capacity and they don't want to take on any more work, but they would liketo modernize their equipment. They're particularly looking into an automated dispensing machine forthe yogurt and fruit. It cost about $50,000 and they have a [employer]-Fund[employer] medart operator going on. 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 She is sharp but she has some medical problems such that they can't leave her alone. Her brother Toni, who is 65 and retired, has now moved intothe family home and he also does some of the work shifts. Patient Active Problem List Diagnosis Code Rheumatoid [...] throat pain R07.0, G89.29 Coccydynia M53.3 Medications 01/15/24 1302 Medication Sig Taking? acetaminophen (TylenoL) 325 mg tablet Take 650 mg by mouth every 6 hours as needed. Yes Adalimumab (Humira Pen) 40 mg/0.8 mL Pen Injector Kit Inject 0.8 mLs subcutaneously every 14 days. Inject the contents of one pen (40 mg) subcutaneously once every 14 days. Yes folic acid (Vitamin B9) 1 mg tablet TAKE ONE TABLET BY MOUTH EVERY DAY Yes rOPINIRole (Requip) 0.5 mg tablet TAKE 1-3 TABLETS BY MOUTH AT BEDTIME NEEDED Yes metHOTREXate (TrexalL) 2.5 mg tablet TAKE EIGHT TABLETS BY MOUTH ONCE WEEKLY Yes DULoxetine DR (Cymbalta) 60 mg Capsule, Delayed Release(E.C.) Take 60 mg by mouth daily. Yes predniSONE (Deltasone) 5 mg tablet 6 tabs X 2 days, then 5 tabs x 2 days, then 4 tabs x 2 days, then 3 tabs x 2 days, then 2 tabs x 2 days, then 1 tab x 2 days. Patient not taking: Reported on 01/15/2024 Cyanocobalamin (Vitamin B-12) 2,000 mcg ER tablet Take 1,000 mcg by mouth daily. Physical Exam: She looks well and healthy. She is in good spirits. Blood pressure 136/73, pulse 70, temperature 36.8 ??C (98.2 ??F), temperature source Temporal, resp. rate 12, weight 73.4 kg (161 lb 12.8 oz), SpO2 98%. 08/29/2018 1:31 PM 03/03/2019 2:19 AM 01/03/2021 10:59 AM 10/31/2022 2:55 AM 01/14/2024 10:44 PM myD-H RAPID-3 Responses RAPID-3 Function 2.66 3 3 2.33 1.67 RAPID-3 Pain 2.5 4 3.5 4 2 RADIP-3 Global 2.5 3 3.5 5 3 RAPID-3 Total Scores 7.66 (Moderate) 10 (Moderate) 10 (Moderate) 11.33 (Moderate) 6.67 (Moderate) Skin: Clear. HEENT: Unremarkable. Lungs: Clear. Heart: Regular rhythm and rate without murmur, gallop, or rub. Abdomen: Benign. No masses, tenderness, or organomegaly. Extremities: No edema. Good distal pulses. Musculoskeletal: She has no synovitis. She is hypermobile. She has the previously described swan-neck deformities, most notably at right #2. There is no synovitis. Examining that right thumb, she hassome mild but definite osteoarthritis of the IP, MCP, and basilar thumb joints. She is most symptomatic at the IP, although there is no inflammation there now. She does have some extension catching that I think is coming from the IP joint itself and not the extensor tendon. There is no tenderness or locking at the A1 parvni on the flexor side. Her wrists, elbows, and shoulders move well includingthe previous symptomatic right shoulder where we did the injection last time. Her hips move well. Her knees have mild crepitance on range of motion bilaterally There is no significant warmth or effusion. Her ankles, including the intermittently symptomatic left ankle, are fine. Distal feet show DJDwithout synovitis. Neuro: Grossly intact. Assessment: We had a long discussion about her situation, but the bottom line is that she is doing very well. 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 She has definite early osteoarthritis on exam of all the thumb joints, including the IP where she has been having the symptoms lately. I suppose it's possible she could have a superimposed crystal problem that causes that osteoarthritic joint become inflamed once in a while. For the time being though, we're not really interested in pursuing that. She can take prednisone as needed when it acts up and taper off quickly. In terms of her thigh pain, it has nothing to do with the inject ions and I believe it's a measure of deconditioning and that if she gets more mobile, her strength in the legs will improve and she'll feel less pain. In the meantime, her rheumatoid continues to do remarkably well on the combination of methotrexate and Humira. We will check lab work today. Will see her in follow-up in 6 months. She knows she can contact us in the interim if she has any problems. Visit Diagnoses: 1. High risk medication use 2. Fibromyalgia 3. Rheumatoid arthritis involving multiple sites with positive rheumatoid factor 4. Primary osteoarthritis involving multiple joints 5. Fatigue, unspecified type 6. Myalgia, unspecified site Total time spent on this visit: 45 minutes. Visit code: 76760. Visit Diagnoses: 1. High risk medication use 2. Fibromyalgia 3. Rheumatoid arthritis involving multiple sites with positive rheumatoid factor 4. Primary osteoarthritis involving multiple joints 5. Fatigue, unspecified type 6. Myalgia, unspecified site Latest Reference Range & Units 01/15/24 13:55 WBC 4.0 - 9.5 x10(3)/mcL 6.2 RBC 4.00 - 5.21 x10(6)/mcL 4.22 Hemoglobin 11.7 - 15.5 g/dL 13.9 Hematocrit 35.7 - 45.8 % 40.8 MCV 82.6 - 94.4 fL 96.7 (H) MCH 27.1 - 32.0 pg 32.9 (H) MCHC 31.7 - 35.0 g/dL 34.1 RDWSD 37.0 - 46.0 fL 45.0 RDWCV 11.5 - 14.1 % 12.7 Platelets 145 - 357 x10(3)/mcL 277 MPV 7.6 - 12.9 fL 9.5 nRBC % Auto % 0.0 nRBC Abs Auto 0.000 - 0.000 x10(3)/mcL 0.000 Neutr Abs (ANC) 1.70 - 6.10 x10(3)/mcL 3.28 Neutrophils % % 52.8 Immature Gran % % 0.30 Lymphocytes % % 32.7 Monocytes % % 11.2 Eosinophils % % 2.4 Basophils % % 0.6 Abbie Gran Abs 0.00 - 0.04 x10(3)/mcL 0.02 Lymphocytes Abs 0.9 - 3.2 x10(3)/mcL 2.0 Monocyte Abs 0.3 - 0.9 x10(3)/mcL 0.7 Eosinophils Abs 0.0 - 0.4 x10(3)/mcL 0.2 Basophils Abs 0.0 - 0.1 x10(3)/mcL 0.0 Sed Rate 2 - 39 mm/hr 20 Sodium 135 - 145 mmol/L 143 Potassium 3.5 - 5.0 mmol/L 4.7 Chloride 98 - 107 mmol/L 104 CO2 22 - 31 mmol/L 29 Anion Gap 5 - 15 mmol/L 10 BUN 8 - 18 mg/dL 12 Creatinine 0.70 - 1.20 mg/dL 0.78 Estimated GFR >=60 mL/min/1.73 m?? 87 Calcium 8.5 - 10.5 mg/dL 9.5 Glucose Lvl 65 - 199 mg/dL 92 CK, Total 0 - 160 unit/L 62 Total Protein 6.1 - 8.0 g/dL 7.1 Albumin 3.2 - 5.2 g/dL 4.3 Total Bilirubin 0.2 - 1.3 mg/dL 0.3 Alk Phos 35 - 105 unit/L 64 AST 0 - 30 unit/L 15 ALT 0 - 30 unit/L 11 Iron 30 - 150 mcg/dL 72 TIBC 250 - 450 mcg/dL 263 Iron Saturation 20 - 50 % 27 Ferritin 11 - 328 ng/mL 144 Vitamin B-12 232 - 1,245 pg/mL 448 25-OH Vit D Total 21 - 100 ng/mL 31 25-OH Vit D Interp Sufficient CRP <=4.9 mg/L <3.0 TSH 0.27 - 4.20 mcIU/mL 2.85 documented in this encounter Plan of Treatment Upcoming Encounters Date Type Department Care Team (Late st Contact Info) Description 07/21/2024 1:00 PM EDT Office Visit [place] [address] Isaiah Mcpherson MD [facility] [place] [address] documented as of this encounter Goals Goal Patient Goal Type Associated Problems Recent Progress Patient-Stated? Author [facility] Medication Compliance and Understanding Patient Facing Action Plan Not on track( 024 11:36 AM EDT) No Mckinley Noel, [facility] Note: Reduce Joint damage and flairs, measured by number of office visits for flairs/ x-rays, follow up every 3-6 months documented as of this encounter Procedures Procedure Name Priority Date/Time Associated Diagnosis Comments CRP, ACUTE INFLAMMATION Routine 01/15/2024 1:55 PM EDT Rheumatoid arthritis involving multiple sites with positive rheumatoid factor Fatigue, unspecified type HEMOGRAM Routine 01/15/2024 1:55 PM EDT High risk medication use Rheumatoid arthritis involving multiple sites with positive rheumatoid factor Fatigue, unspecified type DIFFERENTIAL, AUTOMATED Routine 01/15/2024 1:55 PM EDT High risk medication use Rheumatoid arthritis involving multiple sites with positive rheumatoid factor Fatigue, unspecified type IRON AND TIBC Routine 01/15/2024 1:55 PM EDT Fatigue, unspecified type VITAMIN D, 25-HYDROXY Routine 01/15/2024 1:55 PM EDT High risk medication use Rheumatoid arthritis involving multiple sites with positive rheumatoid factor SEDIMENTATION RATE Routine 01/15/2024 1: 55 PM EDT Rheumatoid arthritis involving multiple sites with positive rheumatoid factor Fatigue, unspecified type CBC (WITH DIFF) Routine 01/15/2024 1:55 PM EDT High risk medication use Rheumatoid arthritis involving multiple sites with positive rheumatoid factor Fatigue, unspecified type TSH Routine 01/15/2024 1:55 PM EDT Fibromyalgia Fatigue, unspecified type Myalgia, unspecified site FERRITIN Routine 01/15/2024 1:55 PM EDT Fatigue, unspecified type VITAMIN B12 Routine 01/15/2024 1:55 PM EDT Fatigue, unspecified type CK Routine 01/15/2024 1:55 PM EDT Fibromyalgia Fatigue, unspecified type Myalgia, unspecified site COMPREHENSIVE METABOLIC PANEL Routine 01/15/2024 1:55 PM EDT High risk medication use Rheumatoid arthritis involving multiple sites with positive rheumatoid factor documented in this encounter Results * Differential, Automated (01/15/2024 1:55 PM EDT) Neutrophil % 52.8 % [facility] Neutrophil Absolute 3.28 1.70 - 6.10 x10(3)/[facility] Lymph % 32.7 % [facility] Lymphocytes Abs 2.0 0.9 - 3.2 x10(3)/[facility] Monocyte % 11.2 % [facility] Monocyte Abs 0.7 0.3 - 0.9 x10(3)/[facility] Eos % 2.4 % [facility] Eosinophils Abs 0.2 0.0 - 0.4 x10(3)/[facility] Basophil % 0.6 % [facility] Baso Absolute 0.0 0.0 - 0.1 x10(3)/[facility] Immature Gran % 0.30 % [facility] Comment: Immature granulocytes(IG's)percentage and absolute count will include metamyelocytes, myelocytes, and promyelocytes. Blood smears from CBCs yielding IG's will be scanned manually for concordance. If this scan disagrees with the automated IG or if promyelocytes are noted, a manual differential will be performed. Immature Gran Absolute 0.02 0.00 - 0.04 x10(3)/[facility] Blood 01/15/2024 1:55 PM EDT 01/15/2024 2:05 PM EDT Narrative Resulting Agency Comment Spec In Lab Isaiah Mcpherson MD HEMATOLOGY ORDERA BLES [facility] [place] [address] * (ABNORMAL) Hemogram (01/15/2024 1:55 PM EDT) White Blood Cell 6.2 4.0 - 9.5 x10(3)/mc L [facility] Red Blood Cell 4.22 4.00 - 5.21 x10(6)/mc L [facility] Hemoglobin 13.9 11.7 - 15.5 g/dL [facility] Hematocrit 40.8 35.7 - 45.8 % [facility] Mean Cell Volume 96.7(H) 82.6 - 94.4 fL [facility] Mean Cell Hemoglobin 32.9(H) 27.1 - 32.0 pg [facility] Mean Cell Hemoglobin Concentration 34.1 31.7 - 35.0 g/dL [facility] Platelet 277 145 - 357 x10(3)/mc L [facility] RDW Standard Deviation 45.0 37.0 - 46.0 fL [facility] RDW coefficient of variation 12.7 11.5 - 14.1 % [facility] Mean Platelet Volume 9.5 7.6 - 12.[address] [facility] NRBC% auto 0.0 % [facility] NRBC Absolute 0.000 0.000 - 0.000 x10(3)/mc L [facility] Blood 01/15/2024 1:55 PM EDT 01/15/2024 2:05 PM EDT Narrative Resulting Agency Comment Spec In Lab Isaiah Mcpherson MD HEMATOLOGY ORDERA BLES Performing Organization Address [facility] Co de Phone Number [facility] [place] [address] * CK (01/15/2024 1:55 PM EDT) Creatine Kinase 62 0 - 160 unit/L [facility] Blood 01/15/2024 1:55 PM EDT 01/15/2024 2:05 PM EDT Narrative Resulting Agency Comment Spec In Lab Isaiah Mcpherson MD CHEMISTRY ORDERAB LES Performing Organization Address [facility] Co de Phone Number [facility] [place] [address] * TSH (01/15/2024 1:55 PM EDT) Thyroid Stimulating Hormone 2.85 0.27 - 4.20 mcIU/mL [facility] Comment: Reference Interval (mcIU/mL): Females: ??First Trimester: 0.23-3.88 ??Second Trimester: 0.22-3.90 ??Third Trimester: 0.44-4.66 Blood 01/15/2024 1:55 PM EDT 01/15/2024 2:05 PM EDT Narrative Resulting Agency Comment Spec In Lab Isaiah Mcpherson MD CHEMISTRY ORDERAB LES Performing Organization Address City/[facility] Co de Phone Number [facility] [place] [address] * Ferritin (01/15/2024 1:55 PM EDT) Ferritin 144 11 - 328 ng/mL [facility] Comment: Please note that as of 10/02/2023, the reference intervals for Ferritin have been updated. Blood 01/15/2024 1:55 PM EDT 01/15/2024 2:05 PM EDT Narrative Resulting Agency Comment Spec In Lab Isaiah Mcpherson MD CHEMISTRY ORDERAB LES [facility] [place] [address] * Iron and TIBC (01/15/2024 1:55 PM EDT) Iron 72 30 - 150 mcg/dL [facility] TIBC 263 250 - 450 mcg/dL [facility] Iron Saturation 27 20 - 50 % [facility] Blood 01/15/2024 1:55 PM EDT 01/15/2024 2:05 PM EDT Narrative Resulting Agency Comment Spec In Lab Isaiah Mcpherson MD CHEMISTRY ORDERAB LES Performing Organization Address City/[facility]/ZIP Co de Phone Number [facility] [place] [address] * Vitamin B12 (01/15/2024 1:55 PM EDT) Vitamin B12 448 232 - 1,245 pg/mL [facility] Blood 01/15/2024 1:55 PM EDT 01/15/2024 2:05 PM EDT Narrative Resulting Agency Comment Spec In Lab Isaiah Mcpherson MD CHEMISTRY ORDERAB LES Performing Organization Address City/[facility]/ZIP Co de Phone Number [facility] [place] [address] * Vitamin D, 25-Hydroxy (01/15/2024 1:55 PM EDT) Vitamin D Total 25 OH 31 21 - 100 ng/mL [facility] Vit D Interp Sufficient [facility] Blood 01/15/2024 1:55 PM EDT 01/15/2024 2:05 PM EDT Narrative Resulting Agency Comment Spec In Lab Isaiah Mcpherson MD CHEMISTRY ORDERAB LES Performing Organization Address [facility] Co de Phone Number [facility] [place] [address] * Sedimentation rate (01/15/2024 1:55 PM EDT) Sedimentation Rate Automated 20 2 - 39 mm/hr [facility] Comment: Effective October 07, 2019 new capillary photometric technology has resulted in a change in reference ranges. It is recommended that each ESR result be reviewed with its own age appropriate reference range. Blood 01/15/2024 1:55 PM EDT 01/15/2024 2:05 PM EDT Narrative Resulting Agency Comment Spec In Lab Isaiha Mcpherson MD HEMATOLOGY ORDERA BLES Performing Organization Address [facility] Co de Phone Number [facility] [place] [address] * CRP, acute inflammation (01/15/2024 1:55 PM EDT) C-Reactive Protein <3.0 <=4.9 mg/L [facility] Blood 01/15/2024 1:55 PM EDT 01/15/2024 2:05 PM EDT Narrative Resulting Agency Comment Spec In Lab Isaiah Mcpherson MD CHEMISTRY ORDERAB LES Performing Organization Address [facility] Co de Phone Number [facility] [place] [address] * Comprehensive metabolic panel (non-fasting) (01/15/2024 1:55 PM EDT) Glucose 92 65 - 199 mg/dL [facility] Comment:Diabetes: >=200 mg/d L plus symptoms Blood Urea Nitrogen 12 8 - 18 mg/dL [facility] Creatinine 0.78 0.70 - 1.20 mg/dL [facility] Sodium 143 135 - 145 mmol/L [facility] Potassium 4.7 3.5 - 5.0 mmol/L [facility] Comment: Please note: ??Patients with WBC >100,000 may have falsely elevated Potassium levels. ??For accurate Potassium quantification in these patients send serum separator tube (gold top) for subsequent determinations. ??Contact the Clinical Chemistry Laboratory if there are any questions. Chloride 104 98 - 107 mmol/L [facility] Carbon Dioxide 29 22 - 31 mmol/L [facility] Anion Gap 10 5 - 15 mmol/L [facility] Calcium 9.5 8.5 - 10.5 mg/dL [facility] Protein, Total 7.1 6.1 - 8.0 g/dL [facility] Albumin 4.3 3.2 - 5.2 g/dL [facility] Aspartate Aminotransferase 15 0 - 30 unit/L [facility] Alanine Aminotransferase 11 0 - 30 unit/L [facility] Alkaline Phosphatase 64 35 - 105 unit/L [facility] Bilirubin, Total 0.3 0.2 - 1.3 mg/dL [facility] Est Glomerular Filtration Rate 87 >=60 mL/min/1. 73 m?? [facility] Comment: This patient's estimated GFR [...] Lab Isaiah Mcpherson MD CHEMISTRY ORDERAB LES [facility] [place] [address] documented in this encounter Visit Diagnoses Diagnosis High risk medication use Encounter for long-term (current) use of other medications Fibromyalgia Mylagia and myositis, unspecified Rheumatoid arthritis involving multiple sites with positive rheumatoid factor Primary osteoarthritis involving multiple joints Fatigue, unspecified type Myalgia, unspecified site documented in this encounter Care Teams Cleaning Supervisor Relationship Specialty Start Date End Date Mikayla Aquino MD PCP - General Family Medicine 07/06/20 documented as of this encounter
--- OUTSIDE RECORDS SUMMARY | 2024-06-19 00:18 | XMS_ITS | Encounter Summary ---
Author Organization Formerly [facility] [place] [address] Care Team Providers Care Senior Outside Sales Representative Name Role Phone Mikayla Aquino MD Primary Care Provider [phone] Encounter Details Date Type Department Care Team (Late st Contact Info) Description 10/30/2022 [place] [address] Falguni Ivy MA Social History Tobacco Use Types Packs/Day Years Used Date Smoking Tobacco: Former Cigarettes Smokeless Tobacco: Never Comments:8 years ago Sex and Gender Information Value Date Recorded Sex Assigned at Not on file Gender Identity Not on file Sexual Orientation Not on file documented as of this encounter Miscellaneous Notes * Telephone Encounter - Falguni Ivy RMA - 10/30/2022 1:43 PM EST Called patient for pre-charting, no answer. CAMMY JOSE documented in this encounter Plan of Treatment Upcoming Encounters Date Type Department Care Team (Late st Contact Info) Description 07/21/2024 1:00 PM EDT Office [place] [address] Isaiah Mcpherson MD [facility] [place] [address] documented as of this encounter Goals Goal Patient Goal Type Associated Problems Recent Progress Patient-Stated? Author [facility] Medication Compliance and Understanding Patient Facing Action Plan Not on track( 024 11:36 AM EDT) No Mckinley Noel, [facility] Note: Reduce Joint damage and flairs, measured by number of office visits for flairs/ x-rays, follow up every 3-6 months documented as of this encounter Visit Diagnoses Not on filedocumented in this encounter Care Teams Senior Outside Sales Representative Relationship Specialty Start Date End Date Mikayla Aquino MD PCP - General Family Medicine 07/06/20 documented as of this encounter
--- OUTSIDE RECORDS SUMMARY | 2024-06-19 00:19 | XMS_ITS | Encounter Summary ---
Author Organization [facility] [place] [address] Care Team Providers Care Edge Setter Name Role Phone Mikayla Aquino MD Primary Care Provider [phone] Reason for Visit * Reason Comments Medication Management Patient Education Encounter Details Date Type Department Care Team (Late st Contact Info) Description 02/09/2021 Specialty [place] [address] Mckinley Noel, [facility] Social History Tobacco Use Types Packs/Day Years Used Date Smoking Tobacco: Former Cigarettes Smokeless Tobacco: Never Comments:8 years ago Sex and Gender Information Value Date Recorded Sex Assigned at Not on file Gender Identity Not on file Sexual Orientation Not on file documented as of this encounter Progress Notes * Mckinley Noel [facility] - 02/09/2021 2:53 PM EDT Clinical Management Plan: Refill Specialty Pharmacy Consultation; Mckinley Noel [facility] Comprehensive Medication Management (CMM) Crystal Felder Ms. Crystal Felder is a 56 y.o. (1965) female who was contacted in regard to a specialty medication refill reminder. Contact made with patient regarding humira. A review of the medication therapywas performed. The medication was refilled as scheduled, and all medication related questions and concerns were addressed. The specialty pharmacy staff will follow up with the patient 5-7 days prior to next refill. Was a change made to the Care Plan: No Allergies and Drug intolerance: No Known Allergies Medication Reconciliation Discrepancies (compared to [facility] med list) No Specialty Pharmacy Refill Questionnaire Refill Questionnaire 02/09/2021 What is the name of the specialty medication you are refilling? humira Are you taking any new medications? No Any new medical condition? No Any new allergies? No Any new side effects that are bothersome? No Adherence: Any missed doses? No Patient understands no changes to current drug regimen were made.. Mckinley Noel RPH 02/09/21 2:55 PM documented in this encounter Plan of Treatment Upcoming Encounters Date Type Department Care Team (Late st Contact Info) Description 07/21/2024 1:00 PM EDT [place] [address] Isaiah Mcpherson MD [facility] [place] [address] documented as of this encounter Goals Goal Patient Goal Type Associated Problems Recent Progress Patient-Stated? Author [facility] Medication Compliance and Understanding Patient Facing Action Plan Not on track( 024 11:36 AM EDT) No Mckinley Noel [facility] Note: Reduce Joint damage and flairs, measured by number of office visits for flairs/ x-rays, follow up every 3-6 months documented as of this encounter Visit Diagnoses Not on filedocumented in this encounter Care Teams Edge Setter Relationship Specialty Start Date End Date Mikayla Aquino MD PCP - General Family Medicine 07/06/20 documented as of this encounter
--- OUTSIDE RECORDS SUMMARY | 2024-06-19 00:19 | XMS_ITS | Encounter Summary ---
Author Organization [facility] [place] [address] Care Team Providers Care Mainframe Architect Name Role Phone Mikayla Aquino MD Primary Care Provider [phone] Reason for Visit * Reason Comments Medication Refill Humira Medication Management Humira Encounter Details Date Type Department Care Team (Late st Contact Info) Description 06/27/2021 Specialty [place] [id number] Kali Vasquez, [facility] Social History Tobacco Use Types Packs/Day Years Used Date Smoking Tobacco: Former Cigarettes Smokeless Tobacco: Never Comments:8 years ago Sex and Gender Information Value Date Recorded Sex Assigned at Not on file Gender Identity Not on file Sexual Orientation Not on file documented as of this encounter Progress Notes * Kali Vasquez [facility] - 06/27/2021 1:55 PM EDT Clinical Management Plan: Refill Specialty Pharmacy Consultation; Kali Vasquez [facility] Comprehensive Medication Management (CMM) Crystal [...] change made to the Care Plan: no - patient injected 1 week late due to forgetfulness If yes, should the medication be held: No Assessment and Recommendations: Title Type of Medication Management: chronic disease management, targeted medication review Referred By: pharmacist Recipient: beneficiary Provider: plan sponsor pharmacist Visit Type: [facility] Follow-up Method of Contact: by telephone Cognitive Ability: good Cognitive Impairment Status Verified this Year: no Allergies and Drug intolerance: No Known Allergies Medication Reconciliation Discrepancies (compared to [facility] med list) -none Specialty Pharmacy Refill Questionnaire Refill Questionnaire 06/27/2021 What is the name of the specialty medication you are refilling? Humira Are you taking any new medications? No Any new medical condition? No Any new allergies? No Any missed doses since your last fill? Yes Please explain 1 Any new side effects that are bothersome? No What date will you need this fill by? 07/06/2021 Adherence: Specialty Med Adherence Patient Demonstrates Understanding of Importance of Adherence: Yes Educational Information or Adherence Tools Provided: No Patient Reported X Missed Doses in the Last Month: 1 If >0, reason for missed doses: memory Other reason for missed dose Data0: injected dose 1 week late due to forgetfulness - patient uses calendar Provider-Estimated Medication Adherence Level: 76-89% Adherence Tools Used: calendar, directed education Pt understands no changes to current drug regimen were made at the appointment and that [facility] is providing recommendations (summary located at top of note) for provider review and follow up. Kali Vasquez [facility] 06/27/21 2:02 PM * Kali Vasquez [facility] - 06/27/2021 1:55 PM EDT Specialty Pharmacy Consultation; Kali Vasquez [facility] Comprehensive Medication Management (CMM): Specialty Consult, Opt Out Crystal Felder Diagnosis: RA Therapy Start Date: Fall 2010 Contact in person or via telephone: Telephone Ms. Crystal Felder is a 56 y.o. (1965) female who was contacted in regard to specialty medication. Spoke with patient regarding HUMIRA. A review of the medication therapy was performed. The medication was refilled as scheduled, and all medication related questions and concerns were addressed. The specialty pharmacy staff will follow up with the patient 5-7 days prior to next refill. Is the patient willing to proceed with the Clinical Assessment? No Summary and Recommendations: Crystal opted out of the consultation at this time as she has been on the medication for 10 years and is not experiencing any changes. She states she is still doing well on therapy with pain here andthere which goes away on its own or with the help of Tylenol. The patient injected 1 week late dueto forgetfulness and was reminded of the importance of adherence. Economic Assessment: Patient is agreeable to medication copay: Yes Copay Amount: $3 Day Supply: 28 Date Needed: 07/06/2021 Therapy Assessment: Appropriate Therapy: Yes Current Medication Dosing/Route/Frequency: Humira 40mg/0.8mL PNKT Inject the contents of one pen (40 mg) subcutaneously once every 14 days Additional equipment/supplies required: no Care Plan Reviewed and Approved by Pharmacist : Yes Problem List: Patient Active Problem List Diagnosis Code ??? Rheumatoid arthritis M06.9 ??? Fibromyalgia M79.7 ??? Depression F32.9 ??? Iron deficiency anemia due to chronic [...] pain R07.0, G89.29 ??? Coccydynia M53.3 Medications Reviewed: Yes Medications reconciled: No Allergies Reviewed:Yes Allergies reconciled: No Pharmacist follow-up needed: Yes Informed patient of specialty pharmacy services: Yes -Patient will be provided with welcome packet: Yes Date to be provided: 11/27/18 Delivery Method: mail -Patient returned signed Rights & Responsibilities: Yes Date to be provided: 11/27/18 Delivery Method: mail -Patient is aware a licensed pharmacist is [...] note) for provider review and follow up. Kali Vasquez RPH 06/27/21 2:05 PM documented in this encounter Plan of Treatment Upcoming Encounters Date Type Department Care Team (Late st Contact Info) Description 07/21/2024 1:00 PM EDT Office [place] [address] Isaiah Mcpherson MD [facility] [place] [address] documented as of this encounter Goals Goal Patient Goal Type Associated Problems Recent Progress Patient-Stated? Author [facility] Medication Compliance and Understanding Patient Facing Action Plan Not on track( 024 11:36 AM EDT) No Mckinley Noel [facility] Note: Reduce Joint damage and flairs, measured by number of office visits for flairs/ x-rays, follow up every 3-6 months documented as of this encounter Visit Diagnoses Not on filedocumented in this encounter Care Teams Mainframe Architect Relationship Specialty Start Date End Date Mikayla Aquino MD PCP - General Family Medicine 07/06/20 documented as of this encounter
--- OUTSIDE RECORDS SUMMARY | 2024-06-19 00:19 | XMS_ITS | Encounter Summary ---
Author Organization [facility] [place] [address] Care Team Providers Care Coal Pulverizer Operator Name Role Phone Mikayla Aquino MD Primary Care Provider [phone] Encounter Details Date Type Department Care Team (Late st Contact Info) Description 05/16/2022 Interpretation Only [address] [phone] Elba Bai, [address] [place] [address] Social History Tobacco Use Types Packs/Day Years [...] 1:00 PM EDT [place] [address] Isaiah Mcpherson MD [facility] [place] [address] documented as of this encounter Goals Goal Patient Goal Type Associated Problems Recent Progress Patient-Stated? Author [facility] Medication Compliance and Understanding Patient Facing Action Plan Not on track( 024 11:36 AM EDT) No Mckinley Noel, [facility] Note: Reduce Joint damage and flairs, measured by number of office visits for flairs/ x-rays, follow up every 3-6 months documented as of this encounter Procedures Procedure Name Priority Date/Time Associated Diagnosis Comments XR FOOT MIN 3 VIEWS LEFT Routine 05/16/2022 4:14 PM EDT documented in this encounter Results * XR Foot Min 3 views Left (Generic) (05/16/2022 4:14 PM EDT) PT CLASS O RAD ADMITDTTM RAD PT RAD MD INFO [id number]^W ILTON^ELBA^ P RAD EXAM DESC [id number]^XR LEFT FOOT ROUTINE^RIS RAD Anatomical Region Laterality Modality Foot Left Radiographic Tarsha ging Impressions 05/16/2022 4:31 PM EDT Degenerative changes as above. Subjectively decreased bone mineralization. No acute fracture or dislocation. Thank you for letting us participate in the care of this patient. ??If you are a health care provider and have any questions regarding this report, please contact the number below. ??For patients who have questions please contact the health human services care specialist that requested your imaging first. ? Narrative 05/16/2022 4:31 PM EDT EXAMINATION: XR RIGHT FOOT ROUTINE, XR LEFT FOOT ROUTINE CLINICAL HISTORY: Plantar fascial fibromatosis TECHNIQUE: 3 views of each foot COMPARISON: Right foot October 14, 2008 FINDINGS: Maintained longitudinal arches. Minimal superior calcaneal spurring on the right, and inferior calcaneal spurring on the left. Subjectively decreased bone mineralization. No focal osseous lesions. Procedure Note Yovany Wade MD - 05/16/2022 EXAMINATION: XR RIGHT FOOT ROUTINE, XR LEFT FOOT ROUTINE CLINICAL HISTORY: Plantar fascial fibromatosis TECHNIQUE: 3 views of each foot COMPARISON: Right foot October 14, 2008 FINDINGS: Maintained longitudinal arches. Minimal superior calcaneal spurring onthe right, and inferior calcaneal spurring on the left. Subjectively decreasedbone mineralization. No focal osseous lesions. IMPRESSION Degenerative changes as above. Subjectively decreased bone mineralization.No acute fracture or dislocation. Thank you for letting us participate in the care of this patient. If youare a health care provider and have any questions regarding this report,please contact the number below. For patients who have questions please contactthe health human services care specialist that requested your imaging first. Elba Bai DPM IMG DX ORDERABLES documented in this encounter Visit Diagnoses Not on filedocumented in this encounter Care Teams Coal Pulverizer Operator Relationship Specialty Start Date End Date Mikayla Aquino MD PCP - General Family Medicine 07/06/20 documented as of this encounter
--- OUTSIDE RECORDS SUMMARY | 2024-06-19 00:19 | XMS_ITS | Encounter Summary ---
Author Organization [facility] [place] [address] Care Team Providers Care Port Surveyor Name Role Phone Mikayla Aquino MD Primary Care Provider [phone] Reason for Visit * Reason Comments Specialty Refill Management Encounter Details Date Type Department Care Team (Late st Contact Info) Description 04/24/2022 Specialty [place] [address] Shefali Qiuck RPH Social History Tobacco Use Types Packs/Day Years Used Date Smoking Tobacco: Former Cigarettes Smokeless Tobacco: Never Comments:8 years ago Sex and Gender Information Value Date Recorded Sex Assigned at Not on file Gender Identity Not on file Sexual Orientation Not on file documented as of this encounter Progress Notes * Shefali Quick RPH - 04/24/2022 11:59 AM EDT Clinical Management Plan: Refill Specialty Pharmacy Consultation; Shefali Quick RPH Comprehensive Medication Management (CMM) Crystal Felder MsPaulino Felder is a 57 y.o. (1965) female [...] Management Type of Medication Management: chronic disease management, targeted medication review Referred By: pharmacist Recipient: beneficiary Provider: plan sponsor pharmacist Time Spent: 1-15 min Method of Contact: by telephone Cognitive Ability: good Cognitive Impairment Status Verified this Year: no Allergies and Drug intolerance: No Known Allergies Medication Reconciliation Discrepancies (compared to eD med list) -now on duloxetine; replaced citalopram Specialty Pharmacy Refill Questionnaire Refill Questionnaire 04/24/2022 What is the name of the specialty medication you are refilling? Humira Are you taking any new medications? Yes Please explain Duloxetine; d/c'ed citalopram Any new medical condition? No Any new allergies? No Any missed doses since your last fill? No Please explain - Any new side effects that are bothersome? No What date will you need this fill by? 05/08/2022 Adherence: Specialty Med Adherence Patient Demonstrates Understanding of Importance of Adherence: Yes Educational Information or Adherence Tools Provided: Yes Patient Reported X Missed Doses in the Last Month: 0 Provider-Estimated Medication Adherence Level: 90-100% Adherence Tools Used: calendar, directed education Pt understands no changes to current drug regimen were made at the appointment and that [facility] is providing recommendations (summary located at top of note) for provider review and follow up. Shefali Quick RPH 04/24/22 12:02 PM documented in this encounter Plan of Treatment Upcoming Encounters Date Type Department Care Team (Late st Contact Info) Description 07/21/2024 1:00 PM EDT [place] [address] Isaiah Mcpherson MD [facility] [place] [address] documented as of this encounter Goals Goal Patient Goal Type Associated Problems Recent Progress Patient-Stated? Author [facility] Medication Compliance and Understanding Patient Facing Action Plan Not on track( 024 11:36 AM EDT) No Mckinley Noel [facility] Note: Reduce Joint damage and flairs, measured by number of office visits for flairs/ x-rays, follow up every 3-6 months documented as of this encounter Visit Diagnoses Not on filedocumented in this encounter Care Teams Port Surveyor Relationship Specialty Start Date End Date Mikayla Aquino MD PCP - General Family Medicine 07/06/20 documented as of this encounter
--- OUTSIDE RECORDS SUMMARY | 2024-06-19 00:19 | XMS_ITS | Encounter Summary ---
[place] [address] Care Team Providers Care Batter Out Name Role Phone Mikayla Aquino MD Primary Care Provider [phone] Reason for Visit * Reason Comments Prior Authorization Humira Pen 40mg/0.8m L PNKT Encounter Details Date Type Department Care Team (Late st Contact Info) Description 11/28/2020 Specialty Pharmacy [place] [phone] Chanell Dorman, [facility] Social History Tobacco Use Types Packs/Day Years Used Date Smoking Tobacco: Former Cigarettes Smokeless Tobacco: Never Comments:8 years ago Sex and Gender Information Value Date Recorded Sex Assigned at Not on file Gender Identity Not on file Sexual Orientation Not on file documented as of this encounter Progress Notes * Chanell Dorman - 11/28/2020 11:50 AM EST [facility], Medication Prior Authorization Patient: Crystal Felder Patient : 1965 Patient Address: [address] [address] (home) Medication Name: HUMIRA PEN 40 MG/0.8 ML SUBCUTANEOUS KIT Medication ID: [id number] Patient Location: [facility] R[facility]ATOLOGY 5C Patient Location Comment: Subscriber Insurance: [place] Subscriber Insurance Comment: Fax: Physician: ISAIAH REDMOND Physician Comment: Sent Via: Fax Gutierrez: N/A Ref/Case/PA#: N/A Medication Strength Frequency Requested: Inject the contents of one pen (40mg) subcutaneously every14 days. Qty/Day Supply: New Start: Renewal Diagnosis & ICD-10 Code: Rheumatoid arthritis involving multiple sites with positive rheumatoidfactor M05.79 Patient Notified: Yes Submission Notes: None Chanell Dorman 11/28/20 11:56 AM * Chanell Dorman - 11/28/2020 11:50 AM EST [facility], Prior Authorization Approval Medication Name: HUMIRA PEN 40 MG/0.8 ML SUBCUTANEOUS KIT Medication ID: [id number] Approval Dates: 11/28/2020 to 11/28/2021 Insurance requirements/notes: None Other Notes: None Case/Reference #: [id number] Approval notification Received via: Fax Copay: $3.00 Copay assistance: None Copay Notes: Insurance mandated Pharmacy: [facility]: Yes Pharmacy staff will be reaching out to the patient to inform them of their medication's approval byecu health insurance. If applicable, a pharmacist will speak with the patient to offer our specialty pharmacy services and to arrange delivery of their medication. Chanell Dorman 11/29/20 10:02 AM documented in this encounter Plan of Treatment Upcoming Encounters Date Type Department Care Team (Late st Contact Info) Description 07/21/2024 1:00 PM EDT Office Visit [place] [address] Isaiah Redmond MD [facility] [place] [place] [address] documented as of this encounter Goals Goal [...] on filedocumented in this encounter Care Teams Batter Out Relationship Specialty Start Date End Date Mikayla Aquino MD PCP - General Family Medicine 07/06/20 documented as of this encounter
--- OUTSIDE RECORDS SUMMARY | 2024-06-19 00:19 | XMS_ITS | Encounter Summary ---
Author Organization [facility] [place] [place] [address] Care Team Providers Care Wet Machine Operator Name Role Phone Mikayla Aquino MD Primary Care Provider [phone] Reason for Visit * Reason Comments Medication Management Patient Education Encounter Details Date Type Department Care Team (Late st Contact Info) Description 01/12/2021 Specialty [place] [address] Mckinley Noel, [facility] Social History Tobacco Use Types Packs/Day Years Used Date Smoking Tobacco: Former Cigarettes Smokeless Tobacco: Never Comments:8 years ago Sex and Gender Information Value Date Recorded Sex Assigned at Not on file Gender Identity Not on file Sexual Orientation Not on file documented as of this encounter Progress Notes * Mckinley Noel [facility] - 01/12/2021 3:41 PM EDT Clinical Management Plan: Refill Specialty Pharmacy Consultation; Mckinley Noel [facility] Comprehensive Medication Management (CMM) Crystal Felder Ms. Crystal Felder is a 55 y.o. (1965) female who was contacted in [...] Known Allergies Medication Reconciliation Discrepancies (compared to [facility] med list) No Specialty Pharmacy Refill Questionnaire Refill Questionnaire 01/12/2021 What is the name of the specialty medication you are refilling? humira Are you taking any new medications? No Any new medical condition? No Any new allergies? No Any new side effects that are bothersome? No Adherence: Any missed doses? No Patient understands no changes to current drug regimen were made.. Mckinley Noel RPH 01/12/21 3:42 PM documented in this encounter Plan of Treatment Upcoming Encounters Date Type Department Care Team (Late st Contact Info) Description 07/21/2024 1:00 PM EDT Office [place] [address] Isaiah Mcpherson MD [facility] [place] [address] documented as of this encounter Goals Goal Patient Goal Type Associated Problems Recent Progress Patient-Stated? Author [facility] Medication Compliance and Understanding Patient Facing Action Plan Not on track( 024 11:36 AM EDT) No Mckinley Noel [facility] Note: Reduce Joint damage and flairs, measured by number of office visits for flairs/ x-rays, follow up every 3-6 months documented as of this encounter Visit Diagnoses Not on filedocumented in this encounter Care Teams Wet Machine Operator Relationship Specialty Start Date End Date Mikayla Aquino MD PCP - General Family Medicine 07/06/20 documented as of this encounter
--- OUTSIDE RECORDS SUMMARY | 2024-06-19 00:19 | XMS_ITS | Encounter Summary ---
Author Organization Formerly [facility] [place] [address] Care Team Providers Care [employer] Name Role Phone Mikayla Aquino MD Primary Care Provider [phone] Reason for Visit * Reason Comments Medication Refill Medication Management Encounter Details Date Type Department Care Team (Late st Contact Info) Description 09/05/2021 Specialty [place] [id number] Kali Vasquez, [facility] Social History Tobacco Use Types Packs/Day Years Used Date Smoking Tobacco: Former Cigarettes Smokeless Tobacco: Never Comments:8 years ago Sex and Gender Information Value Date Recorded Sex Assigned at Not on file Gender Identity Not on file Sexual Orientation Not on file documented as of this encounter Progress Notes * Kali Vasquez, [facility] - 09/05/2021 2:30 PM EST Clinical Management Plan: Refill Specialty Pharmacy Consultation; Kali Vasquez [facility] Comprehensive Medication Management (CMM) Crystal Felder MsPaulino Felder is a 56 y.o. (1965) female [...] Known Allergies Medication Reconciliation Discrepancies (compared to [facility] med list) No Specialty Pharmacy Refill Questionnaire Refill Questionnaire 09/05/2021 What is the name of the specialty medication you are refilling? Humira Are you taking any new medications? No Any new medical condition? No Any new allergies? No Any new side effects that are bothersome? No What date will you need this fill by? 09/18/2021 Adherence: Any missed doses? No Patient understands no changes to current drug regimen were made. Kali Vasquez RP 09/05/21 2:38 PM documented in this encounter Plan of Treatment Upcoming Encounters Date Type Department Care Team (Late st Contact Info) Description 07/21/2024 1:00 PM EDT [place] [address] Isaiah Mcpherson MD [facility] [place] [address] documented as of this encounter Goals Goal Patient Goal Type Associated Problems Recent Progress Patient-Stated? Author [facility] Medication Compliance and Understanding Patient Facing Action Plan Not on track( 024 11:36 AM EDT) No Mckinley Noel [facility] Note: Reduce Joint damage and flairs, measured by number of office visits for flairs/ x-rays, follow up every 3-6 months documented as of this encounter Visit Diagnoses Not on filedocumented in this encounter Care Teams [employer] Relationship Specialty Start Date End Date Mikayla Aquino MD PCP - General Family Medicine 07/06/20 documented as of this encounter
--- OUTSIDE RECORDS SUMMARY | 2024-06-19 00:19 | XMS_ITS | Encounter Summary ---
Author Organization [facility] [place] [address] Care Team Providers Care Rail Detector Car Operator Name Role Phone Mikayla Aquino MD Primary Care Provider [phone] Reason for Visit * Reason Comments Follow-up Encounter Details Date Type Department Care Team (Late st Contact Info) Description 01/10/2022 11:00 AM EDT Office Visit [place] [address] Isaiah Mcpherson MD [facility] [place] [address] High risk medication use; Iron deficiency anemia due to chronic blood loss; Rheumatoid arthritis involving multiple sites with positive rheumatoid factor; Benign hypermobility syndrome; GUEVARA (obstructive sleep apnea); RLS (restless legs syndrome); Cardiac arrhythmia due to premature depolarization, unspecified type Social History Tobacco Use Types Packs/Day Years Used Date Smoking Tobacco: Former Cigarettes Smokeless Tobacco: Never Comments:8 years ago Sex and Gender Information Value Date Recorded Sex Assigned at Not on file Gender Identity Not on file Sexual Orientation Not on file documented as of this encounter Last Filed Vital Signs Vital Sign Reading Time Taken Comments Blood Pressure 134/65 01/10/2022 10:49 AM EDT Pulse 56 01/10/2022 10:49 AM EDT Temperature 36.3 ??C (97.4 ??F) 01/10/2022 10:49 AM E DT Respiratory Rate 18 01/10/2022 10:49 AM EDT Oxygen Saturation 99% 01/10/2022 10:49 AM EDT Inhaled Oxygen Concentration - - Weight - - Height 157.5 cm (5' 2) 01/10/2022 10:49 AM EDT Body Mass Index - - documented in this encounter Patient Instructions * Patient Instructions* Isaiah Mcpherson MD - 01/10/2022 12:02 PM EDT Get labs today at 3L. Call or [facility] for results if you don't hear from us by next week. Further recommendations based on test results. Do prednisone taper. Rx sent in. Follow taper instructions. Try Requip before sleep for restless legs. Rx says 1-3 at night, but start with 1 tab for a few days and increase as necessary. Let us know how it goes. Try taking your MTX and Humira on the proper schedule. That may help with flare. Follow up in 6 months. Call if problems or concerns. documented in this encounter Progress Notes * Isaiah Mcpherson MD - 01/10/2022 11:00 AM EDT Rheumatology Clinic: Dr. Mcpherson 01/10/2022 [id number] Crystal Felder is seen in follow-up of her seropositive rheumatoid arthritis. When I last saw her back in June, she was doing very well, the best I had seen her in years. In fact, she was doing so well that on her own she had started to back off her Humira, taking it sometimes every third weekrather than every second. Despite that she was doing very well. 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 Unfortunately, today she reports that things have changed and she has been having a lot of trouble lately. This occurs in the context of some upheaval at home. She has two daughters, one of them and living in [place] with three children, two boys ages 8 and 10, and a girl 2 years old. Her daughter, Bianka, is to a hook and eye attacher who is finishing up his thesis out in [place],but it's taken a number of years. Her daughter got fed up with this and left and is now living at Crystal's home in [place] with her children. Crystal and her sister are trying to act as intermediariesand get them back together. They're talking and now this is going to move out here after hefinishes up his thesis defense in September, and then will write his dissertation [facility]. Her other daughter, who lives in [place], is also going to be visiting with her significant other, who is a person who flips houses in [place] for a living and has done very well. Bianka is a pharmacist and now has a job here after moving from [place]. Her other daughter daughter, Lauren, is still in school. The father, Crystal's ex-, lives in [place]. He helped out with supporting the two daughters, but they haven't talked since the divorce. The woman that they hired and had been doing so well was diagnosed with breast cancer, but she has gone through initial treatment and she started working again. 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 So in that regard, things are a lot better. Her mother in her 80s is still chugging along. But in the midst of all this turmoil, she has developed increasing pain and stiffness in her right wrist and her right ankle. She is also been having more pain in her chest that sounds like costochondritis. She is actually been using a back brace at night to minimize movement in the chest wall and relieve the pain. In response to this increase joint pain, she has been shortening the interval on her Humira. She also tells me today that she was also spreading out her methotrexate dosing as well, so now she is trying to get back on schedule on that as well. She does have mild problems toleratingthe methotrexate with some GI side effects, but in general they're tolerable and she is sensitive to many medications so this is not new for her. She is also very tired. She is sleeping poorly. She believes sleep apnea. She had an incomplete evaluation for that in the past. She'd be willing to be reevaluated, but just not right at this moment. She does have restless legs and has not been on anything for that. She also has a more diffuse soft tissue pain that she herself brought up could possibly represent fibromyalgia, a diagnosis that she has had before. I told her significant sleep disturbance makes her a set-up for that. On exam today, we heard some multiple PVCs, including some runs of trigeminy with compensatory pauses. When we questioned her about this, she was not aware of palpitations, but she has had two episodes of near syncope at home in the last month or so. She has not had an EKG recently. She has no history of heart disease. Patient Active Problem List Diagnosis Code ??? [...] pain R07.0, G89.29 ??? Coccydynia M53.3 Medications 01/10/22 1052 Medication Sig Taking? metHOTREXate 2.5 mg Tablet TAKE 8 TABLETS BY MOUTH ONCE WEEKLY Yes folic acid (Folvite) 1 mg Tablet TAKE ONE TABLET BY MOUTH EVERY DAY Yes Adalimumab (Humira Pen) 40 mg/0.8 mL Pen Injector Kit Inject 0.8 mLs subcutaneously every 14 days. Inject the contents of one pen (40 mg) subcutaneously once every 14 days. Yes citalopram (CELEXA) 20 mg Tablet daily. Yes rOPINIRole (REQUIP) 0.5 mg Tablet Take 1-3 tablets by mouth nightly as needed. predniSONE (Deltasone) 5 mg Tablet 6 tabs X 2 days, then 5 tabs x 2 days, then 4 tabs x 2 days, then 3 tabs x 2 days, then 2 tabs x 2 days, then 1 tab x 2 days. Physical Exam: Despite all this she looks well and healthy. She is in good spirits, even when talking about the situation at home, which in some ways is amusing. With all the guests in the farmhouse,they have to prepare dinner for 11 people at a time. Blood pressure 134/65, pulse 56, temperature 36.3 ??C (97.4 ??F), temperature source Temporal, resp. rate 18, height 157.5 cm (5' 2), SpO2 99 %. myD-H RAPID-3 Responses 03/04/2017 09/11/2017 08/29/2018 03/03/2019 01/03/2021 RAPID-3 Function 2 2 2.66 3 3 RAPID-3 Pain 5.5 3.5 2.5 4 3.5 RADIP-3 Global 5 5 2.5 3 3.5 RAPID-3 Total Scores 12.5 (High) 10.5 (Moderate) 7.66 (Moderate) 10 (Moderate) 10 (Moderate) Skin: Clear. HEENT: Unremarkable. Lungs: Clear. Heart: Slow rate without murmur, gallop, or rub. She has frequent premature beats with compensatorypauses, and actually is having some runs of trigeminy. Abdomen: Benign. No masses, tenderness, or organomegaly. Extremities: No edema. Good distal pulses. Musculoskeletal: She has no synovitis in her hands, although she does have some background degenerative disease as was noted before. She has an unusual appearance to her distal phalanges, some of them appearing almost clubbed, but this is just the way she is. She is hypermobile. The right wrist is discretely warm and tender over the dorso-ulnar aspect of the wrist joint. There is significant painon range of motion there. The left wrist is okay. Elbows and shoulders move well. Her hips move well. Her knees move well, although she has some crepitance on range of motion there. Right ankle is definitely warm and swollen and a bit tender although not nearly as much as the right wrist. Left ankle is fine. Distal feet show DJD without synovitis. Neuro: Grossly intact. Assessment: We had a long discussion about her situation. We'll get lab work today. Therapeuticallywe decided to put her on a prednisone taper at 30 mg a day for 2 days, 25 mg for 2 days, etc. This has been effective in the past. We'll see if this brings her right wrist and right ankle back into line. I also recommend that she start taking Humira and methotrexate on a strict schedule, at 2 weeksand 1 week intervals, respectively. We'll also try her on ropinirole for her RLS, starting at 0.5 mg at night. Finally, in terms of the multiple premature beats with compensatory pauses and a historyof two recent pre- syncopes, we will have her get an EKG, but she may need more extensive rhythm monitoring, either a Holter or Zio patch. She understood our concerns there. I'll see her back in 6 months, but we will stay in touch. Patient Instructions Get labs today at 3L. Call or [facility] for results if you don't hear from us by next week. Further recommendations based on test results. Do prednisone taper. Rx sent in. Follow taper instructions. Try Requip before sleep for restless legs. Rx says 1-3 at night, but start with 1 tab for a few days and increase as necessary. Let us know how it goes. Try taking your MTX and Humira on the proper schedule. That may help with flare. Follow up in 6 months. Call if problems or concerns. Total time spent on this visit: 50 minutes. Visit code: 49343. Orders Placed This Encounter Procedures ??? CBC (with Diff) ??? Comprehensive metabolic panel (non-fasting) ??? Sedimentation rate ??? CRP, acute inflammation ??? Iron and TIBC ??? Ferritin ??? Hemogram ??? Differential, Automated Visit Diagnoses: 1. High risk medication use 2. Iron deficiency anemia due to chronic blood loss 3. Rheumatoid arthritis involving multiple sites with positive rheumatoid factor 4. Benign hypermobility syndrome 5. GUEVARA (obstructive sleep apnea) 6. RLS (restless legs syndrome) 7. Cardiac arrhythmia due to premature depolarization, unspecified type Latest Reference Range & Units 01/10/22 12:38 WBC 4.0 - 9.5 x10(3)/mcL 5.7 RBC 4.00 - 5.21 x10(6)/mcL 3.98 (L) Hemoglobin 11.7 - 15.5 g/dL 13.1 Hematocrit 35.7 - 45.8 % 38.3 MCV 82.6 - 94.4 fL 96.2 (H) MCH 27.1 - 32.0 pg 32.9 (H) MCHC 31.7 - 35.0 g/dL 34.2 RDWSD 37.0 - 46.0 fL 45.0 RDWCV 11.5 - 14.1 % 12.8 Platelets 145 - 357 x10(3)/mcL 271 MPV 7.6 - 12.9 fL 9.8 NRBC % Auto % 0.0 NRBC Abs Auto 0.000 - 0.000 x10(3)/mcL 0.000 Neutr Abs (ANC) 1.70 - 6.10 x10(3)/mcL 2.71 Neutrophils % % 47.5 Immature Gran % % 0.20 [1] Lymphocytes % % 37.1 Monocytes % % 11.9 Eosinophils % % 2.8 Basophils % % 0.5 Abbie Gran Abs 0.00 - 0.04 x10(3)/mcL 0.01 Lymphocytes Abs 0.9 - 3.2 x10(3)/mcL 2.1 Monocyte Abs 0.3 - 0.9 x10(3)/mcL 0.7 Eosinophils Abs 0.0 - 0.4 x10(3)/mcL 0.2 Basophils Abs 0.0 - 0.1 x10(3)/mcL 0.0 Sed Rate 2 - 39 mm/hr 20 [2] Sodium 135 - 145 mmol/L 143 Potassium 3.5 - 5.0 mmol/L 4.4 [3] Chloride 98 - 107 mmol/L 105 CO2 22 - 31 mmol/L 27 Anion Gap 5 - 15 mmol/L 11 BUN 8 - 18 mg/dL 12 Creatinine 0.70 - 1.20 mg/dL 0.91 Estimated GFR >=60 mL/min/1.73 m?? 70 [4] Calcium 8.5 - 10.5 mg/dL 9.3 Glucose Lvl 65 - 199 mg/dL 98 [5] Total Protein 6.1 - 8.0 g/dL 7.2 Albumin 3.2 - 5.2 g/dL 4.2 Total Bilirubin 0.2 - 1.3 mg/dL 0.3 Alk Phos 35 - 105 unit/L 62 AST 0 - 30 unit/L 15 ALT 0 - 30 unit/L 10 Iron 30 - 150 mcg/dL 68 TIBC 250 - 450 mcg/dL 231 (L) Iron Saturation 20 - 50 % 29 Ferritin 30 - 400 ng/mL 171 [6] CRP <=4.9 mg/L <3.0 documented in this encounter Plan of Treatment Upcoming Encounters Date Type Department Care Team (Late st Contact Info) Description 07/21/2024 1:00 PM EDT Office Visit Rheumatology at [facility] [place] [address] Isaiah Mcpherson MD [facility] [place] [address] documented as of this encounter Goals Goal Patient Goal Type Associated Problems Recent Progress Patient-Stated? Author [employer] Medication Compliance and Understanding Patient Facing Action Plan Not on track( 024 11:36 AM EDT) No Mckinley Noel, [facility] Note: Reduce Joint damage and flairs, measured by number of office visits for flairs/ x-rays, follow up every 3-6 months documented as of this encounter Procedures Procedure Name Priority Date/Time Associated Diagnosis Comments HC C-REACTIVE PROTEIN Routine 01/10/2022 12:38 PM EDT Rheumatoid arthritis involving multiple sites with positive rheumatoid factor HEMOGRAM Routine 01/10/2022 12:38 PM EDT High risk medication use Rheumatoid arthritis involving multiple sites with positive rheumatoid factor DIFFERENTIAL, AUTOMATED Routine 01/10/2022 12:38 PM EDT High risk medication use Rheumatoid arthritis involving multiple sites with positive rheumatoid factor HC IRON BINDING CAPACITY Routine 01/10/2022 12:38 PM EDT Iron deficiency anemia due to chronic blood loss RLS (restless legs syndrome) HC ESR-SEDIMENTATION RATE, BLOOD Routine 01/10/2022 12:38 PM EDT Rheumatoid arthritis involving multiple sites with positive rheumatoid factor HC CBC,PLT & AUTO DIFF Routine 12:38 PM EDT High risk medication use Rheumatoid arthritis involving multiple sites with positive rheumatoid factor HC VENIPUNCTURE Routine 01/10/2022 12:38 PM EDT Iron deficiency anemia due to chronic blood loss RLS (restless legs syndrome) COMPREHENSIVE METABOLIC PANEL Routine 01/10/2022 12:38 PM EDT High risk medication use Rheumatoid arthritis involving multiple sites with positive rheumatoid factor documented in this encounter Results * Differential, Automated (01/10/2022 12:38 PM EDT) Neutrophil % 47.5 % [facility] Neutrophil Absolute 2.71 1.70 - 6.10 x10(3)/[facility] Lymph % 37.1 % [facility] Lymphocytes Abs 2.1 0.9 - 3.2 x10(3)/[facility] Monocyte % 11.9 % [facility] Monocyte Abs 0.7 0.3 - 0.9 x10(3)/[facility] Eos % 2.8 % [facility] Eosinophils Abs 0.2 0.0 - 0.4 x10(3)/[facility] Basophil % 0.5 % [facility] Baso Absolute 0.0 0.0 - 0.1 x10(3)/[facility] Immature Gran % 0.20 % [facility] Comment: Immature granulocytes(IG's)percentage and absolute count will include metamyelocytes, myelocytes, and promyelocytes. Blood smears from CBCs yielding IG's will be scanned manually for concordance. If this scan disagrees with the automated IG or if promyelocytes are noted, a manual differential will be performed. Immature Gran Absolute 0.01 0.00 - 0.04 x10(3)/[facility] Blood 01/10/2022 12:3 8 PM EDT 01/10/2022 12:45 PM EDT Narrative Resulting Agency Comment Spec In Lab Isaiah Mcpherson MD HEMATOLOGY ORDERA BLES [facility] [place] [id number] * (ABNORMAL) Hemogram (01/10/2022 12:38 PM EDT) [facility] White Blood Cell 5.7 4.0 - 9.5 x10(3)/ L [facility] Red Blood Cell 3.98(L) 4.00 - 5.21 x10(6)/ L [facility] Hemoglobin 13.1 11.7 - 15.5 g/dL [facility] Hematocrit 38.3 35.7 - 45.8 % [facility] Mean Cell Volume 96.2(H) 82.6 - 94.4 fL [facility] Mean Cell Hemoglobin 32.9(H) 27.1 - 32.0 pg [facility] Mean Cell Hemoglobin Concentration 34.2 31.7 - 35.0 g/dL [facility] Platelet 271 145 - 357 x10(3)/[facility] RDW Standard Deviation 45.0 37.0 - 46.0 [facility] RDW coefficient of variation 12.8 11.5 - 14.1 % [facility] Mean Platelet Volume 9.8 7.6 - 12.9 fL [facility] NRBC% auto 0.0 % [facility] NRBC Absolute 0.000 0.000 - 0.000 x10(3)/[facility] Blood 01/10/2022 12:3 8 PM EDT 01/10/2022 12:45 PM EDT Narrative Resulting Agency Comment Spec In Lab Isaiah Mcpherson MD HEMATOLOGY ORDERA BLES [facility] [place] [address] * Ferritin (01/10/2022 12:38 PM EDT) [facility] Ferritin 171 30 - 400 ng/mL [facility] Comment: Pediatric reference ranges not verified at [facility], interpret with caution. Reference ranges for females greater than 50 years of age approach values for men, i.e., 30-400 ng/mL. Blood 01/10/2022 12:3 8 PM EDT 01/10/2022 12:45 PM EDT Narrative Resulting Agency Comment Spec In Lab Isaiah Mcpherson MD CHEMISTRY ORDERAB LES Performing Organization Address City/[facility]/ZIP Co de Phone Number [facility] [place] [address] * (ABNORMAL) Iron and TIBC (01/10/2022 12:38 PM EDT) Iron 68 30 - 150 mcg/dL [facility] TIBC 231(L) 250 - 450 mcg/dL [facility] Iron Saturation 29 20 - 50 % [facility] Blood 01/10/2022 12:3 8 PM EDT 01/10/2022 12:45 PM EDT Narrative Resulting Agency Comment Spec In Lab Isaiah Mcpherson MD CHEMISTRY ORDERAB LES Performing Organization Address [facility] Co de Phone Number [facility] [place] [address] * CRP, acute inflammation (01/10/2022 12:38 PM EDT) C-Reactive Protein <3.0 <=4.9 mg/L [facility] Blood 01/10/2022 12:3 8 PM EDT 01/10/2022 12:45 PM EDT Narrative Resulting Agency Comment Spec In Lab Isaiah Mcpherson MD CHEMISTRY ORDERAB LES Performing Organization Address City/[facility] Co de Phone Number [facility] [place] [address] * Sedimentation rate (01/10/2022 12:38 PM EDT) Sedimentation Rate Automated 20 2 - 39 mm/hr [facility] Comment: Effective October 07, 2019 new capillary photometric technology has resulted in a change in reference ranges. It is recommended that each ESR result be reviewed with its own age appropriate reference range. Blood 01/10/2022 12:3 8 PM EDT 01/10/2022 12:45 PM EDT Narrative Resulting Agency Comment Spec In Lab Isaiah Mcpherson MD HEMATOLOGY ORDERA BLES [facility] [place] [address] * Comprehensive metabolic panel (non-fasting) (01/10/2022 12:38 PM EDT) Glucose 98 65 - 199 mg/dL [facility] Comment:Diabetes: >=200 mg/d L plus symptoms Blood Urea Nitrogen 12 8 - 18 mg/dL [facility] Creatinine 0.91 0.70 - 1.20 mg/dL [facility] Sodium 143 135 - 145 mmol/L [facility] Potassium 4.4 3.5 - 5.0 mmol/L [facility] Comment: Please note: ??Patients with WBC >100,000 may have falsely elevated Potassium levels. ??For accurate Potassium quantification in these patients send serum separator tube (gold top) for subsequent determinations. ??Contact the Clinical Chemistry Laboratory if there are any questions. Chloride 105 98 - 107 mmol/L [facility] Carbon Dioxide 27 22 - 31 mmol/L [facility] Anion Gap 11 5 - 15 mmol/L [facility] Calcium 9.3 8.5 - 10.5 mg/dL [facility] Protein, Total 7.2 6.1 - 8.0 g/dL [facility] Albumin 4.2 3.2 - 5.2 g/dL [facility] Aspartate Aminotransferase 15 0 - 30 unit/L [facility] Alanine Aminotransferase 10 0 - 30 unit/L [facility] Alkaline Phosphatase 62 35 - 105 unit/L [facility] Bilirubin, Total 0.3 0.2 - 1.3 mg/dL [facility] Est Glomerular Filtration Rate 70 >=60 mL/min/1. 73 m?? [facility] Comment: This patient? s estimated glomerular filtration rate (eGFR) is between 70 mL/min/1.73 m2 (patients with less muscle mass) and 81 mL/min/1.73 m2 (patients with more muscle mass) as determined by the CKD-EPI equation. Assessment of eGFR is not appropriate when creatinine concentrations are rapidly changing. For clinical decisions where creatinine clearance will affect therapy, a 24-hour urine creatinine clearance may be advised. Assignment of CKD stage 1 - 5 for patients with an eGFR near the transition point between stages may be based on clinical assessment of muscle mass and symptoms in addition to eGFR. 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
--- OUTSIDE RECORDS SUMMARY | 2024-06-19 00:19 | XMS_ITS | Encounter Summary ---
Author Organization [facility] [place] [address] Care Team Providers Care Food Storeroom Clerk Name Role Phone Mikayla Aquino MD Primary Care Provider [phone] Reason for Visit * Reason Comments Specialty Pharmacy Review Adalimumab (Hu brett) Pen 40mg/0.8mL Encounter Details Date Type Department Care Team (Late st Contact Info) Description 07/17/2022 Specialty [place] [address] Chanell Dorman, [facility] Social History Tobacco Use Types Packs/Day Years Used Date Smoking Tobacco: Former Cigarettes Smokeless Tobacco: Never Comments:8 years ago Sex and Gender Information Value Date Recorded Sex Assigned at Not on file Gender Identity Not on file Sexual Orientation Not on file documented as of this encounter Progress Notes * Chanell Dorman - 07/17/2022 11:59 PM EDT The [facility] has completed a benefits investigation for Crystal Jaramillo Bradford to review their eligibility to fill at [facility]. Per patient's medication list they are prescribed Adalimumab (Humira) and the medication is filled at the [facility]. documented in this encounter Plan of Treatment Upcoming Encounters Date Type Department Care Team (Late st Contact Info) Description 07/21/2024 1:00 PM EDT Office [place] [address] Isaiah Mcpherson MD [facility] [place] [address] documented as of this encounter Goals Goal [...] on filedocumented in this encounter Care Teams Food Storeroom Clerk Relationship Specialty Start Date End Date Mikayla Aquino MD PCP - General Family Medicine 07/06/20 documented as of this encounter
--- OUTSIDE RECORDS SUMMARY | 2024-06-19 00:19 | XMS_ITS | Encounter Summary ---
Author Organization [facility] [place] [address] Care Team Providers Care Naval Inspector Name Role Phone Mikayla Aquino MD Primary Care Provider Encounter Details Date Type Department Care Team (Late st Contact Info) Description 09/04/2021 [place] [address] Isaiah Mcpherson MD [facility] [address] [place] [address] Social History Tobacco Use Types Packs/Day Years [...] 1:00 PM EDT [place] [address] Isaiah Mcpherson MD [facility] [place] [address] [address] documented as of this encounter Goals Goal Patient Goal Type Associated Problems Recent Progress Patient-Stated? Author [facility] Medication Compliance and Understanding Patient Facing Action Plan Not on track( 024 11:36 AM EDT) No Mckinley Noel, [facility] Note: Reduce Joint damage and flairs, measured by number of office visits for flairs/ x-rays, follow up every 3-6 months documented as of this encounter Visit Diagnoses Not on filedocumented in this encounter Care Teams Naval Inspector Relationship Specialty Start Date End Date Mikayla Aquino MD PCP - General Family Medicine 07/06/20 documented as of this encounter
--- OUTSIDE RECORDS SUMMARY | 2024-06-19 00:19 | XMS_ITS | Encounter Summary ---
Author Organization [facility] [place] [address] Care Team Providers Care Supervisor Facepiece Line Name Role Phone Mikayla Aquino MD Primary Care Provider [phone] Reason for Visit * Reason Comments Specialty Pharmacy Review adalimumab (Hu brett Pen) 40 mg/0.8 mL Encounter Details Date Type Department Care Team (Late st Contact Info) Description 01/03/2021 Specialty [place] [address] Raj Garza Social History Tobacco Use Types Packs/Day Years Used Date Smoking Tobacco: Former Cigarettes Smokeless Tobacco: Never Comments:8 years ago Sex and Gender Information Value Date Recorded Sex Assigned at Not on file Gender Identity Not on file Sexual Orientation Not on file documented as of this encounter Progress Notes * Raj Garza - 01/03/2021 11:59 PM EST The [facility] has completed a benefits investigation for Crystal Felder to review their eligibility to fill at [facility]. Per patient's medication list they are prescribed adalimumab (Humira Pen) 40 mg/0.8 mL and the medication is able to be filled at the [facility]. documented in this encounter Plan of Treatment Upcoming Encounters Date Type Department Care Team (Late st Contact Info) Description 07/21/2024 1:00 PM EDT Office [place] [address] Isaiah Mcpherson MD [facility] [place] [address] documented as of this encounter Goals Goal Patient Goal Type Associated Problems Recent Progress Patient-Stated? Author Home Medication Compliance and Understanding Patient Facing Action Plan Not on track( 024 11:36 AM EDT) No Mckinley Noel, [facility] Note: Reduce Joint damage and flairs, measured by number of office visits for flairs/ x-rays, follow up every 3-6 months documented as of this encounter Visit Diagnoses Not on filedocumented in this encounter Care Teams Supervisor Facepiece Line Relationship Specialty Start Date End Date Mikayla Aquino MD PCP - General Family Medicine 07/06/20 documented as of this encounter
--- OUTSIDE RECORDS SUMMARY | 2024-06-19 00:19 | XMS_ITS | Encounter Summary ---
Author Organization [facility] [place] [address] Care Team Providers Care Special Projects Coordinator Name Role Phone Mikayla Aquino MD Primary Care Provider [phone] Reason for Visit * Reason Comments Specialty Refill Management Encounter Details Date Type Department Care Team (Late st Contact Info) Description 01/25/2022 Specialty [place] [address] Ricardo Mandel CPHT Social History Tobacco Use Types Packs/Day Years Used Date Smoking Tobacco: Former Cigarettes Smokeless Tobacco: Never Comments:8 years ago Sex and Gender Information Value Date Recorded Sex Assigned at Not on file Gender Identity Not on file Sexual Orientation Not on file documented as of this encounter Progress Notes * Aminta Krishna [facility] - 01/25/2022 4:10 PM EDT Clinical Management Plan: Refill Specialty Pharmacy Consultation; Aminta Krishna Bernice Comprehensive Medication Management (CMM) Crystal Felder MsPaulino [...] disease management, targeted medication review Referred By: provider Recipient: beneficiary Provider: plan sponsor pharmacist Visit Type: [facility] Follow-up Time Spent: 1-15 min Cognitive Ability: good Cognitive Impairment Status Verified this Year: no Allergies and Drug intolerance: No Known Allergies Medication Reconciliation Discrepancies (compared to [facility] med list) -None Specialty Pharmacy Refill Questionnaire Refill Questionnaire 01/25/2022 What is the name of the specialty medication you are refilling? Humira 40mg/0.8mL pens Are you taking any new medications? No Any new medical condition? No Any new allergies? No Any missed doses since your last fill? No Please explain - Any new side effects that are bothersome? No What date will you need this fill by? (No Data) Adherence: Specialty Med Adherence Patient Demonstrates Understanding of Importance of Adherence: Yes Educational Information or Adherence Tools Provided: No Patient Reported X Missed Doses in the Last Month: 0 If yes, why?: mail delay - patient will be 4 days late to inject Provider-Estimated Medication Adherence Level: 90-100% Adherence Tools Used: calendar, directed education Pt understands no changes to current drug regimen were made at the appointment and that [facility] is providing recommendations (summary located at top of note) for provider review and follow up. Aminta Krishna RPH 01/25/22 4:26 PM documented in this encounter Plan of Treatment Upcoming Encounters Date Type Department Care Team (Late st Contact Info) Description 07/21/2024 1:00 PM EDT [place] [address] Isaiah Mcpherson MD [facility] [place] [address] [place] [address] documented as of this encounter Goals Goal Patient Goal Type Associated Problems Recent Progress Patient-Stated? Author [facility] Medication Compliance and Understanding Patient Facing Action Plan Not on track( 024 11:36 AM EDT) No Mckinley Noel [facility] Note: Reduce Joint damage and flairs, measured by number of office visits for flairs/ x-rays, follow up every 3-6 months documented as of this encounter Visit Diagnoses Not on filedocumented in this encounter Care Teams Special Projects Coordinator Relationship Specialty Start Date End Date Mikayla Aquino MD PCP - General Family Medicine 07/06/20 documented as of this encounter
--- OUTSIDE RECORDS SUMMARY | 2024-06-19 00:19 | XMS_ITS | Encounter Summary ---
Author Organization [facility] [place] [address] Care Team Providers Care Nutrition Specialist Name Role Phone Mikayla Aquino MD Primary Care Provider [phone] Reason for Visit * Reason Comments Medication Management Patient Education Encounter Details Date Type Department Care Team (Late st Contact Info) Description 11/28/2020 Specialty [place] [address] Mckinley Noel, [facility] Social History Tobacco Use Types Packs/Day Years Used Date Smoking Tobacco: Former Cigarettes Smokeless Tobacco: Never Comments:8 years ago Sex and Gender Information Value Date Recorded Sex Assigned at Not on file Gender Identity Not on file Sexual Orientation Not on file documented as of this encounter Progress Notes * Mckinley Noel [facility] - 11/28/2020 10:38 AM EST Specialty Pharmacy Consultation; Mckinley Noel [facility] Comprehensive Medication Management (CMM): Specialty Consult, Opt Out Crystal Felder Diagnosis: RA Therapy Start Date: 10/2018 with [facility], but had been on since 2010. Contact in person or via telephone:Phone Ms. Crystal Felder is a 55 y.o. (1965) female who was contacted in regard to specialty medication. Spoke with patient regarding HUMIRA. A review of the medication therapy was performed. The medication was submitted for a PA as scheduled, and all medication related questions and concerns were addressed. The specialty pharmacy staff will follow up with the patient 5-7 days prior to next refill. Is the patient willing to proceed with the Clinical Assessment? No Summary and Recommendations: I spoke to Crystal Felder who declined to do a full 6 month follow up consult today for her humira.She has been on the medication for roughly 10 years and has not had any issues with it. She states she is not having any side effects and had no questions for me today. She affirmed that she is not having any signs or symptoms of any infections and we will follow up monthly for refill reminders. Economic Assessment: Patient is agreeable to medication copay: Yes Copay Amount: $3 Day Supply: 28 Date Needed: 12/09/20 Therapy Assessment: Appropriate Therapy: Yes Current Medication Dosing/Route/Frequency: Humira 40mg subq once q 14 days Additional equipment/supplies required: no Care [...] note) for provider review and follow up. Mckinley Noel RPH 11/28/20 10:42 AM documented in this encounter Plan of Treatment Upcoming Encounters Date Type Department Care Team (Late st Contact Info) Description 07/21/2024 1:00 PM EDT Office [place] [address] Isaiah Mcpherson MD [facility] [place] [address] documented as of this encounter Goals Goal Patient Goal Type Associated Problems Recent Progress Patient-Stated? Author [facility] Medication Compliance and Understanding Patient Facing Action Plan Not on track( 024 11:36 AM EDT) No Mckinley Noel RPH Note: Reduce Joint damage and flairs, measured by number of office visits for flairs/ x-rays, follow up every 3-6 months documented as of this encounter Visit Diagnoses Not on filedocumented in this encounter Care Teams Nutrition Specialist Relationship Specialty Start Date End Date Mikayla Aquino MD PCP - General Family Medicine 07/06/20 documented as of this encounter
--- OUTSIDE RECORDS SUMMARY | 2024-06-19 00:19 | XMS_ITS | Encounter Summary ---
Author Organization [facility] [place] [place] [address] Care Team Providers Care Business Asst Name Role Phone Mikayla Aquino MD Primary Care Provider [phone] Reason for Visit * Reason Comments Medication Management Medication Refill Encounter Details Date Type Department Care Team (Late st Contact Info) Description 10/17/2020 Specialty [place] [address] Aminta Krishna [facility] Social History Tobacco Use Types Packs/Day Years Used Date Smoking Tobacco: Former Cigarettes Smokeless Tobacco: Never Comments:8 years ago Sex and Gender Information Value Date Recorded Sex Assigned at Not on file Gender Identity Not on file Sexual Orientation Not on file documented as of this encounter Progress Notes * Aminta Krishna [facility] - 10/17/2020 3:16 PM EST Clinical Management Plan: Refill Specialty Pharmacy Consultation; Aminta Krishna [facility] Comprehensive Medication Management (CMM) Crystal Felder Ms. Crystal Felder is a 55 y.o. (1965) female who was contacted in regard to a specialty medication refill reminder. Spoke with patient regarding Humira. A review of the medication therapy was performed. The medication was Refilled as scheduled, and all medication related questions and concernswere addressed. The specialty pharmacy staff will follow up with the patient 5-7 days prior to next refill. Was a change made to the Care Plan: yes - Patient is temporarily holding her Humira dose until she is feeling better. She received her second Shingrix dose on 10/14/20 and experienced some flu-like symptoms. She reports she is feeling better and will likely resume therapy in the next couple of days. (Was due to inject on 10/14/2020 - has that pen on hand) If yes, should the medication be held: Yes - patient to resume therapy shortly Assessment and Recommendations: Title Type of Medication Management: chronic disease management, targeted medication review Referred By: provider Recipient: beneficiary Provider: plan sponsor pharmacist [place] [facility] [place] Method of Contact: by telephone Cognitive Ability: good Cognitive Impairment Status Verified this Year: no Allergies and Drug intolerance: No Known Allergies Medication Reconciliation Discrepancies (compared to [facility] med list) -None New medications: no New medical conditions: no New allergies: no Adherence: Medication Adherence Patient reported X missed doses in the last month: 1 Any gaps in refill history greater than 2 weeks in the last 3 months: no Demonstrates understanding of importance of adherence: yes Informant: patient Reliability of informant: reliable Provider-estimated medication adherence level: 90-100% Reasons for non-adherence: no problems identified Adherence tools used: directed education Support network for adherence: family member, healthcare provider Confirmed plan for next specialty medication refill: delivery by pharmacy Refills needed for supportive medications: not needed Are you experiencing any side effects from your medications? no Pt understands no changes to current drug regimen were made at the appointment and that [facility] is providing recommendations (summary located at top of note) for provider review and follow up. Aminta Krishna RPH 10/17/20 3:17 PM documented in this encounter Plan of Treatment Upcoming Encounters Date Type Department Care Team (Late st Contact Info) Description 07/21/2024 1:00 PM EDT Office [place] [address] Isaiah Mcpherson MD [facility] [place] [place] [address] documented as of this encounter Goals Goal Patient Goal Type Associated Problems Recent Progress Patient-Stated? Author [facility] Medication Compliance and Understanding Patient Facing Action Plan Not on track( 024 11:36 AM EDT) No Mckinley Noel [facility] Note: Reduce Joint damage and flairs, measured by number of office visits for flairs/ x-rays, follow up every 3-6 months documented as of this encounter Visit Diagnoses Not on filedocumented in this encounter Care Teams Business Asst Relationship Specialty Start Date End Date Mikayla Aquino MD PCP - General Family Medicine 07/06/20 documented as of this encounter
--- OUTSIDE RECORDS SUMMARY | 2024-06-19 00:19 | XMS_ITS | Encounter Summary ---
Author Organization [facility] [place] [address] Care Team Providers Care Property Field Inspector Name Role Phone Mikayla Aquino MD Primary Care Provider [phone] Reason for Visit * Reason Comments Specialty Refill Management Encounter Details Date Type Department Care Team (Late st Contact Info) Description 04/24/2021 Specialty [place] [address] Carolina Hayden CPHT Social History Tobacco Use Types Packs/Day Years Used Date Smoking Tobacco: Former Cigarettes Smokeless Tobacco: Never Comments:8 years ago Sex and Gender Information Value Date Recorded Sex Assigned at Not on file Gender Identity Not on file Sexual Orientation Not on file documented as of this encounter Progress Notes * Carolina Hayden CPHT - 04/24/2021 2:00 PM EDT Clinical Management Plan: Refill Specialty Pharmacy Consultation; Carolina Hayden CPHT Comprehensive Medication Management (CMM) Crystal Felder Ms. [...] Known Allergies Medication Reconciliation Discrepancies (compared to [facility] med list) No Specialty Pharmacy Refill Questionnaire Refill Questionnaire 04/24/2021 What is the name of the specialty medication you are refilling? Humira Are you taking any new medications? No Any new medical condition? No Any new allergies? No Any new side effects that are bothersome? No What date will you need this fill by? 04/27/2021 Adherence: Any missed doses? No Patient understands no changes to current drug regimen were made.. Carolina Hayden CPHT 04/24/21 2:00 PM documented in this encounter Plan of Treatment Upcoming Encounters Date Type Department Care Team (Late st Contact Info) Description 07/21/2024 1:00 PM EDT Office [place] [address] Isaiah Mcpherson MD [facility] [place] [address] documented as of this encounter Goals Goal Patient Goal Type Associated Problems Recent Progress Patient-Stated? Author [facility] Medication Compliance and Understanding Patient Facing Action Plan Not on track( 024 11:36 AM EDT) No Mckinley Noel, [facility] Note: Reduce Joint damage and flairs, measured by number of office visits for flairs/ x-rays, follow up every 3-6 months documented as of this encounter Visit Diagnoses Not on filedocumented in this encounter Care Teams Property Field Inspector Relationship Specialty Start Date End Date Mikayla Aquino MD PCP - General Family Medicine 07/06/20 documented as of this encounter
--- OUTSIDE RECORDS SUMMARY | 2024-06-19 00:19 | XMS_ITS | Encounter Summary ---
Author Organization [facility] [place] [address] Care Team Providers Care Disaster Recovery Consultant Name Role Phone Mikayla Aquino MD Primary Care Provider [phone] Reason for Visit * Reason Comments Medication Management Encounter Details Date Type Department Care Team (Late st Contact Info) Description 12/25/2021 Specialty [place] [address] Sera Babcock RPH Social History Tobacco Use Types Packs/Day Years Used Date Smoking Tobacco: Former Cigarettes Smokeless Tobacco: Never Comments:8 years ago Sex and Gender Information Value Date Recorded Sex Assigned at Not on file Gender Identity Not on file Sexual Orientation Not on file documented as of this encounter Progress Notes * Sera Babcock RPH - 12/25/2021 1:41 PM EST Specialty Pharmacy Consultation; Sera Babcock RPH Comprehensive Medication Management (CMM): Specialty Consult, Opt Out Crystal Felder Diagnosis: RA Therapy Start Date: Fall 2010 Contact in person or via telephone: Phone Ms. Crystal Felder is a 56 y.o. [...] Clinical Assessment? No Summary and Recommendations: Crystal had no questions or concerns regarding Humira and opted out of a follow up consult. She denies any adherence issues or adverse effects. The specialty pharmacy will reach out again at the next refill.$3 Economic Assessment: Patient is agreeable to medication copay: Yes Copay Amount: $3 Day Supply: 28 Date Needed: 12/27/21 Therapy Assessment: Appropriate Therapy: Yes Current Medication Dosing/Route/Frequency: Humira 40mg/0.8ml PNKT inject 1 pen subq every 2 weeks Additional equipment/supplies required: no Care Plan Reviewed [...] Informed patient of specialty pharmacy services: Yes Welcome Packet and Rights and Responsibilities: Patient provided welcome packet/rights and responsibilities: Yes Date Confirmed: 03/30/19 Confirmation: Signature in [employer] -Patient is aware a licensed pharmacist is [...] note) for provider review and follow up. Sera Babcock RPH 12/25/21 1:43 PM documented in this encounter Plan of Treatment Upcoming Encounters Date Type Department Care Team (Late st Contact Info) Description 07/21/2024 1:00 PM EDT Office Visit Rheumatology at [facility] [place] [address] Isaiah Mcpherson MD [facility] [place] [address] documented as of this encounter Goals Goal Patient Goal Type Associated Problems Recent Progress Patient-Stated? Author [facility] Medication Compliance and Understanding Patient Facing Action Plan Not on track( 024 11:36 AM EDT) No Mckinley Noel [facility] Note: Reduce Joint damage and flairs, measured by number of office visits for flairs/ x-rays, follow up every 3-6 months documented as of this encounter Visit Diagnoses Not on filedocumented in this encounter Care Teams Disaster Recovery Consultant Relationship Specialty Start Date End Date Mikayla Aquino MD PCP - General Family Medicine 07/06/20 documented as of this encounter
--- OUTSIDE RECORDS SUMMARY | 2024-06-19 00:19 | XMS_ITS | Encounter Summary ---
Author Organization Formerly [facility], Later [facility] Address [facility] [place] [address] Care Team Providers Care Amr Physician Name Role Phone Mikayla Aquino MD Primary Care Provider [phone] Reason for Referral * Consultation (Routine) - Closed Specialty Diagnoses / Procedures Referred By Chris bryant Referred To Contact Plastic Surgery Diagnoses Bleeding from finger Isaiah Mcpherson MD [facility] [place] [address] [place] [address] Schuyler Hammer MD [facility] [place] [address] Referral ID Status Reason Start Date Expiration Date V isits Requested Visits Authorized [id number] Closed Consult, Test & Treat 07/15/2021 07/15/2022 1 1 Encounter Details Date Type Department Care Team (Late st Contact Info) Description 07/12/2021 10:00 AM EDT Office Visit Rheumatology at [place] [phone] Isaiah Mcpherson MD [facility] [place] [address] [address] Bleeding from finger; High risk medication use; Rheumatoid arthritis involving multiple sites with positive rheumatoid factor; Osteoarthritis, unspecified osteoarthritis type, unspecified site Social History Tobacco Use Types Packs/Day Years Used Date Smoking Tobacco: Former Cigarettes Smokeless Tobacco: Never Comments:8 years ago Sex and Gender Information Value Date Recorded Sex Assigned at Not on file Gender Identity Not on file Sexual Orientation Not on file documented as of this encounter Last Filed Vital Signs Vital Sign Reading Time Taken Comments Blood Pressure 130/75 07/12/2021 10:05 AM EDT Pulse 53 07/12/2021 10:05 AM EDT Temperature 36.6 ??C (97.8 ??F) 07/12/2021 10:05 AM E DT Respiratory Rate - - Oxygen Saturation 98% 07/12/2021 10:05 AM EDT Inhaled Oxygen Concentration - - Weight 70.8 kg (156 lb) 07/12/2021 10:05 AM EDT Height 157.5 cm (5' 2.01) 07/12/2021 10:05 AM E DT Body Mass Index 28.53 07/12/2021 10:05 AM EDT documented in this encounter Progress Notes * Isaiah Mcpherson MD - 07/12/2021 10:00 AM EDT Rheumatology Clinic: Dr. Mcpherson 07/12/2021 [id number] Crystal Edmonds is seen in follow-up of her rheumatoid arthritis and early osteoarthritis. In terms of her rheumatoid, she continues to do well on methotrexate and Humira. She is tolerating that well.In fact she is doing the best that she has in a long time. So good in fact that she is really only taking her Humira every 2 to 3 weeks rather than taking it very regularly at 2 weeks. She feels so good at this point, she sometimes forgets. Most of the improvement is attributable to a major change in the home environment. 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 They now have her for working 4 days a week, 4 to 5 hours/day. She is an excellent, reliable worker. That has had a dramatic positive impact by offloading work that Crystal in the past would've been responsible for. Now she is able to spend most of her time sharing the yogurt- making chores with her sister, cooking, and doing gardening. Her responsibilities at night for her mother are less as well. Her mother continues to require a lot of care. Crystal describes her as the core of the family. She never fully recovered from her aortic valve replacement surgery, by Crystal's estimation. Despite herphysical limitations, she is still completely with it, and continues to do such things as knitting.But she does requires a lot of help with her ADLs. 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 They bought E-bikes together and now they are going biking every day. She says they sometimes do 9 miles a day. They mainly go on back roads which are safer. They have wide tires on the bikes. One can tell from talking to her that she is really enjoying this. The only downside of it is she is having more pain in her tailbone lately. She is trying to modify the seating on the biketo prevent that. This is an old problem. She actually underwent 2 injections into the tailbone areaby the pain clinic in the past with good benefit. In terms of other areas that bother her, she still wakes up with her ankles aching and stiff but that clears quickly. Otherwise, she doesn't really have any significant joint complaints. She has beenfully vaccinated with Moderna. She has not received a booster dose. The family has decided not to participate in the indoor ty market over this winter again because of the pandemic. Despite that it sounds like they're doing economically very well. For what ever reason, the pandemic seems to have helped their business. She did bring up a new problem. She was doing some type of craft with a piece of wood and had a stabbing injury to the tip of her left third finger. That was about a month ago. But she continues to have a punctate wound that won't heal and every time she takes the bandage off it bleeds profusely and she demonstrated that today. She wondered if she had a foreign body in there from the wood. We decided to get an x-ray today. We'll also get her routine lab work. Patient Active Problem List Diagnosis Code ??? [...] pain R07.0, G89.29 ??? Coccydynia M53.3 Medications 07/12/21 1007 Medication Sig Taking? metHOTREXate 2.5 mg Tablet TAKE 8 TABLETS BY MOUTH ONCE WEEKLY Yes folic acid (Folvite) 1 mg Tablet TAKE ONE TABLET BY MOUTH EVERY DAY Yes Adalimumab (Humira Pen) 40 mg/0.8 mL Pen Injector Kit Inject 0.8 mLs subcutaneously every 14 days. Inject the contents of one pen (40 mg) subcutaneously once every 14 days. Yes predniSONE (Deltasone) 5 mg Tablet 6 tabs X 2 days, then 5 tabs x 2 days, then 4 tabs x 2 days, then 3 tabs x 2 days, then 2 tabs x 2 days, then 1 tab x 2 days. Patient taking differently: 6 tabs X 2 days, then 5 tabs x 2 days, then 4 tabs x 2 days, then 3 tabs x 2 days, then 2 tabs x 2 days, then 1 tab x 2 days. Hasn't taken in years Yes citalopram (CELEXA) 20 mg Tablet daily. Yes Physical Exam: She looks well and healthy. She is in the best spirits that I have ever seen her in all the years that she has been in our clinic. Blood pressure 130/75, pulse 53, temperature 36.6 ??C (97.8 ??F), temperature source Temporal, height 157.5 cm (5' 2.01), weight 70.8 kg (156 lb), SpO2 98 %. myD-H RAPID-3 Responses 03/04/2017 09/11/2017 08/29/2018 03/03/2019 01/03/2021 RAPID-3 Function 2 2 2.66 3 3 RAPID-3 Pain 5.5 3.5 2.5 4 3.5 RADIP-3 Global 5 5 2.5 3 3.5 RAPID-3 Total Scores 12.5 (High) 10.5 (Moderate) 7.66 (Moderate) 10 (Moderate) 10 (Moderate) Skin: Clear. HEENT: Unremarkable. Mask in place. Lungs: Clear. Heart: Regular rhythm and rate without murmur, gallop, or rub. Abdomen: Benign. No masses, tenderness, or organomegaly. Extremities: No edema. Good distal pulses. Musculoskeletal: Examining that left third finger, at the tuft on the palmar side of the distal phalanx, after she removed the Band-Aid, she did have a punctate, presumably fairly deep wound that immediately began bleeding at a fairly rapid rate. We had to put two Band-Aids back on to get it to stop I wonder if she punctured an AV malformation or some other vascular mass. The distal phalanx seemsotherwise normal. Elsewhere, she has mild degenerative changes in her hands. There is no synovitis.Wrists move well without pain. Her elbows and shoulders move well. Hips move well. Her knees move well with just minimal crepitance. Her ankles are fine. Distal feet show DJD without synovitis. Neuro: Grossly intact. Assessment: We had a long discussion about her situation, but basically she is doing great. I told her there was really no problem with stretching out the Humira injections, but if she starts to think she is doing less well, the first thing she should do is go back to regular 2-week injections. It sounds like she has continued with the regular methotrexate dosing every week. We'll go ahead and get lab work today. In addition we'll get an x-ray of the distal third left finger to make sure there is no foreign body there, which I think is very unlikely, but we don't want to miss it. I'm not sureif the suspected wooden splinter would even show up on plain x-rays, but we'll see. More importantly, we will refer her to Dr. Schuyler Hammer in plastic surgery for further evaluation. Otherwise, I'll see her in follow-up in 6 months. Total time spent on this visit: 45 minutes. Visit code: 74179. Orders Placed This Encounter Procedures ??? XR Fingers Min 2 views Left (Generic) ??? CBC (with Diff) ??? Comprehensive metabolic panel (non-fasting) ??? Sedimentation rate ??? CRP, acute inflammation ??? Prothrombin Time ??? APTT ??? Hemogram ??? Differential, Automated Visit Diagnoses: 1. Bleeding from finger 2. High risk medication use 3. Rheumatoid arthritis involving multiple sites with positive rheumatoid factor 4. Osteoarthritis, unspecified osteoarthritis type, unspecified site Results for CRYSTAL EDMONDS ( ) Ref. Range 07/12/2021 11:20 WBC Latest Ref Range: 4.0 - 9.5 x10(3)/mcL 4.8 RBC Latest Ref Range: 4.00 - 5.21 x10(6)/mcL 4.23 Hemoglobin Latest Ref Range: 11.7 - 15.5 gm/dL 13.7 Hematocrit Latest Ref Range: 35.7 - 45.8 % 40.0 MCV Latest Ref Range: 82.6 - 94.4 fL 94.6 (H) MCH Latest Ref Range: 27.1 - 32.0 pg 32.4 (H) MCHC Latest Ref Range: 31.7 - 35.0 gm/dL 34.3 RDWSD Latest Ref Range: 37.0 - 46.0 fL 42.9 RDWCV Latest Ref Range: 11.5 - 14.1 % 12.4 Platelets Latest Ref Range: 145 - 357 x10(3)/mcL 286 MPV Latest Ref Range: 7.6 - 12.9 fL 9.9 nRBC % Auto Latest Units: % 0.0 nRBC Abs Auto Latest Ref Range: 0.000 - 0.000 x10(3)/mcL 0.000 Neutr Abs (ANC) Latest Ref Range: 1.70 - 6.10 x10(3)/mcL 2.24 Neutrophils % Latest Units: % 47.0 Immature Gran % Latest Units: % 0.00 Lymphocytes % Latest Units: % 41.1 Monocytes % Latest Units: % 8.0 Eosinophils % Latest Units: % 3.1 Basophils % Latest Units: % 0.8 Abbie Gran Abs Latest Ref Range: 0.00 - 0.04 x10(3)/mcL 0.00 Lymphocytes Abs Latest Ref Range: 0.9 - 3.2 x10(3)/mcL 2.0 Monocyte Abs Latest Ref Range: 0.3 - 0.9 x10(3)/mcL 0.4 Eosinophils Abs Latest Ref Range: 0.0 - 0.4 x10(3)/mcL 0.2 Basophils Abs Latest Ref Range: 0.0 - 0.1 x10(3)/mcL 0.0 Sed Rate Latest Ref Range: 2 - 39 mm/hr 20 PT Latest Ref Range: 9.4 - 12.5 sec 10.5 INR Unknown 0.9 PTT Latest Ref Range: 25 - 37 sec 30 Sodium Latest Ref Range: 135 - 145 mmol/L 138 Potassium Latest Ref Range: 3.5 - 5.0 mmol/L 4.2 Chloride Latest Ref Range: 98 - 107 mmol/L 103 CO2 Latest Ref Range: 22 - 31 mmol/L 29 Anion Gap Latest Ref Range: 5 - 15 mmol/L 6 BUN Latest Ref Range: 8 - 18 mg/dL 14 Creatinine Latest Ref Range: 0.70 - 1.20 mg/dL 0.81 Estimated GFR Latest Ref Range: >=60 mL/min/1.73 m?? 80 Calcium Latest Ref Range: 8.5 - 10.5 mg/dL 9.6 Glucose Lvl Latest Ref Range: 65 - 199 mg/dL 91 Total Protein Latest Ref Range: 6.1 - 8.0 gm/dL 7.4 Albumin Latest Ref Range: 3.2 - 5.2 gm/dL 4.4 Total Bilirubin Latest Ref Range: 0.2 - 1.3 mg/dL 0.3 Alk Phos Latest Ref Range: 35 - 105 unit/L 64 AST Latest Ref Range: 0 - 30 unit/L 16 ALT Latest Ref Range: 0 - 30 unit/L 13 CRP Latest Ref Range: <=4.9 mg/L <3.0 EXAMINATION: XR FINGERS MIN 2 VIEWS LEFT (GENERIC) CLINICAL HISTORY: Left 3rd finger with persistent focal bleeding at distal phalanx tuft, palmar side, after trauma 1 month ago. ? foreign body visible, etc.?, , entered by ordering service TECHNIQUE: PA hand and 3 views of long finger, 4 views COMPARISON: September 2008 ?? FINDINGS: Bones No acute fracture. Decreased bone mineralization. No periostitis or ankylosis. ?? Joints No erosions Third PIP joint-hyperextended, not present in 2007. Third DIP joint-slight flexed. This pattern resembles swan-neck deformity. ?? Soft tissues Diffuse soft tissue swelling. ?? IMPRESSION 1. Decreased bone mineralization 2. No fracture or erosion 3. Malalignment of long finger. ?? documented in this encounter Plan of Treatment Upcoming Encounters Date Type Department Care Team (Late st Contact Info) Description 07/21/2024 1:00 PM EDT [place] [address] Isaiah Mcpherson MD [facility] [place] [address] Scheduled Referrals Name Type Priority Associated Diagnoses Orde r Schedule Referral to Plastic Surgery Outpatient Referral Routine Bleeding from finger Ordered: 07/15/2021 documented as of this encounter Goals Goal Patient Goal Type Associated Problems Recent Progress Patient-Stated? Author [facility] Medication Compliance and Understanding Patient Facing Action Plan Not on track( 024 11:36 AM EDT) No Mckinley Noel, [facility] Note: Reduce Joint damage and flairs, measured by number of office visits for flairs/ x-rays, follow up every 3-6 months documented as of this encounter Procedures Procedure Name Priority Date/Time Associated Diagnosis Comments HC C-REACTIVE PROTEIN Routine 07/12/2021 11:20 AM EDT Rheumatoid arthritis involving multiple sites with positive rheumatoid factor HEMOGRAM Routine 07/12/2021 11:20 AM EDT High risk medication use Rheumatoid arthritis involving multiple sites with positive rheumatoid factor DIFFERENTIAL, AUTOMATED Routine 07/12/20 11:20 AM EDT High risk medication use Rheumatoid arthritis involving multiple sites with positive rheumatoid factor HC PARTIAL THROMBOPLASTIN TIME Routine 07/12/2021 11:20 AM EDT Bleeding from finger High risk medication use HC ESR-SEDIMENTATION RATE, BLOOD Routine 07/12/2021 11:20 AM EDT Rheumatoid arthritis involving multiple sites with positive rheumatoid factor HC PROTHROMBIN TIME Routine 07/12/2021 1 1:20 AM EDT Bleeding from finger High risk medication use HC CBC,PLT & AUTO DIFF Routine 11:20 AM EDT High risk medication use Rheumatoid arthritis involving multiple sites with positive rheumatoid factor COMPREHENSIVE METABOLIC PANEL Routine 07/12/2021 11:20 AM EDT High risk medication use Rheumatoid arthritis involving multiple sites with positive rheumatoid factor documented in this encounter Results * XR Fingers Min 2 views Left (Generic) (07/12/2021 11:35 AM EDT) Anatomical Region Laterality Modality Hand Left Digital Radiogra phy Impressions 07/12/2021 4:15 PM EDT 1. ??Decreased bone mineralization 2. ??No fracture or erosion 3. ??Malalignment of long finger. Thank you for letting us participate in the care of this patient. ??If you are a health care provider and have any questions regarding this report, please contact the number below. ??For patients who have questions please contact the health manager managed care that requested your imaging first. ? Narrative 07/12/2021 4:15 PM EDT EXAMINATION: XR FINGERS MIN 2 VIEWS LEFT (GENERIC) CLINICAL HISTORY: Left 3rd finger with persistent focal bleeding at distal phalanx tuft, palmar side, after trauma 1 month ago. ? foreign body visible, etc.?, , entered by ordering service TECHNIQUE: PA hand and 3 views of long finger, 4 views COMPARISON: September 2008 FINDINGS: Bones No acute fracture. Decreased bone mineralization. No periostitis or ankylosis. Joints No erosions Third PIP joint-hyperextended, not present in 2007. Third DIP joint-slight flexed. This pattern resembles swan-neck deformity. Soft tissues Diffuse soft tissue swelling. Procedure Note Nichole Bruno MD - 07/12/2021 EXAMINATION: XR FINGERS MIN 2 VIEWS LEFT (GENERIC) CLINICAL HISTORY: Left 3rd finger with persistent focal bleeding atdistal phalanx tuft, palmar side, after trauma 1 month ago. ? foreign bodyvisible, etc.?, , entered by ordering service TECHNIQUE: PA hand and 3 views of long finger, 4 views COMPARISON: September 2008 FINDINGS: Bones No acute fracture. Decreased bone mineralization. No periostitis or ankylosis. Joints No erosions Third PIP joint-hyperextended, not present in 2007. Third DIP joint-slight flexed. This pattern resembles swan-neck deformity. Soft tissues Diffuse soft tissue swelling. IMPRESSION 1. Decreased bone mineralization 2. No fracture or erosion 3. Malalignment of long finger. Thank you for letting us participate in the care of this patient. If youare a health care provider and have any questions regarding this report,please contact the number below. For patients who have questions please contactthe health manager managed care that requested your imaging first. Isaiah Mcpherson MD IMG DX ORDERABLES * Differential, Automated (07/12/2021 11:20 AM EDT) Neutrophil % 47.0 % [facility] Neutrophil Absolute 2.24 1.70 - 6.10 x10(3)/[facility] Lymph % 41.1 % [facility] Lymphocytes Abs 2.0 0.9 - 3.2 x10(3)/[facility] Monocyte % 8.0 % [facility] Monocyte Abs 0.4 0.3 - 0.9 x10(3)/[facility] Eos % 3.1 % [facility] Eosinophils Abs 0.2 0.0 - 0.4 x10(3)/[facility] Basophil % 0.8 % [facility] Baso Absolute 0.0 0.0 - 0.1 x10(3)/[facility] Immature Gran % 0.00 % [facility] Comment: Immature granulocytes(IG's)percentage and absolute count will include metamyelocytes, myelocytes, and promyelocytes. Blood smears from CBCs yielding IG's will be scanned manually for concordance. If this scan disagrees with the automated IG or if promyelocytes are noted, a manual differential will be performed. Immature Gran Absolute 0.00 0.00 - 0.04 x10(3)/[facility] Blood 07/12/2021 11:2 0 AM EDT 07/12/2021 11:33 AM EDT Narrative Resulting Agency Comment Spec In Lab Isaiah Mcpherson MD HEMATOLOGY ORDERA BLES [facility] [place] [address] * (ABNORMAL) Hemogram (07/12/2021 11:20 AM EDT) White Blood Cell 4.8 4.0 - 9.5 x10(3)/mc L [facility] Red Blood Cell 4.23 4.00 - 5.21 x10(6)/ L [facility] Hemoglobin 13.7 11.7 - 15.5 gm/dL [facility] Hematocrit 40.0 35.7 - 45.8 % [facility] Mean Cell Volume 94.6(H) 82.6 - 94.4 fL [facility] Mean Cell Hemoglobin 32.4(H) 27.1 - 32.0 pg [facility] Mean Cell Hemoglobin Concentration 34.3 31.7 - 35.0 gm/dL [facility] Platelet 286 145 - 357 x10(3)/mc L [facility] RDW Standard Deviation 42.9 37.0 - 46.0 [facility] RDW coefficient of variation 12.4 11.5 - 14.1 % [facility] Mean Platelet Volume 9.9 7.6 - 12.9 [facility] NRBC% auto 0.0 % [facility] NRBC Absolute 0.000 0.000 - 0.000 x10(3)/mc L [facility] Blood 07/12/2021 11:2 0 AM EDT 07/12/2021 11:33 AM EDT Narrative Resulting Agency Comment Spec In Lab Isaiah Mcpherson MD HEMATOLOGY ORDERA BLES Performing Organization Address [facility] Co de Phone Number [facility] [place] [address] * APTT (07/12/2021 11:20 AM EDT) Partial Thromboplastin Time 30 25 - 37 sec [facility] Comment: The PTT is NOT appropriate for heparin monitoring. Use the Anti-Xa level for heparin monitoring (HEP UFH) or LMWH monitoring (HEP LMW). A PTT less than 37 seconds generally indicates adequate hemostasis. Blood 07/12/2021 11:2 0 AM EDT 07/12/2021 11:33 AM EDT Narrative Resulting Agency Comment Spec In Lab Isaiah Mcpherson MD HEMATOLOGY ORDERA BLES Performing Organization Address City/[facility]/ZIP Co de Phone Number [facility] [place] [address] * Prothrombin Time (07/12/2021 11:20 AM EDT) Prothrombin Time 10.5 9.4 - 12.5 sec [facility] International Normalization Ratio 0.9 [facility] Comment: An INR <2.0 indicates adequate procoagulant activity for hemostasis in most patients without underlying bleeding disorders, though the INR may not adequately reflect hemostatic capacity in patients with liver disease and synthetic impairment. The recommended target INR range for therapeutic anticoagulation is 2.0 ? 3.0 for most applications, though lower and higher ranges may be appropriate depending on clinical circumstances. Blood 07/12/2021 11:2 0 AM EDT 07/12/2021 11:33 AM EDT Narrative Resulting Agency Comment Spec In Lab Isaiah Mcpherson MD HEMATOLOGY ORDERA BLES Performing Organization Address [facility] Co de Phone Number [facility] [place] [address] * CRP, acute inflammation (07/12/2021 11:20 AM EDT) C-Reactive Protein <3.0 <=4.9 mg/L [facility] Blood 07/12/2021 11:2 0 AM EDT 07/12/2021 11:33 AM EDT Narrative Resulting Agency Comment Spec In Lab Isaiah Mcpherson MD CHEMISTRY ORDERAB LES Performing Organization Address [facility] de Phone Number [facility] [place] [address] * Sedimentation rate (07/12/2021 11:20 AM EDT) Sedimentation Rate Automated 20 2 - 39 mm/hr [facility] Comment: Effective October 07, 2019 new capillary photometric technology has resulted in a change in reference ranges. It is recommended that each ESR result be reviewed with its own age appropriate reference range. Blood 07/12/2021 11:2 0 AM EDT 07/12/2021 11:33 AM EDT Narrative Resulting Agency Comment Spec In Lab Isaiah Mcpherson MD HEMATOLOGY ORDERA BLES Performing Organization Address [facility] Co de Phone Number [facility] [place] [address] * Comprehensive metabolic panel (non-fasting) (07/12/2021 11:20 AM EDT) Glucose 91 65 - 199 mg/dL [facility] Comment:Diabetes: >=200 mg/d L plus symptoms Blood Urea Nitrogen 14 8 - 18 mg/dL [facility] Creatinine 0.81 0.70 - 1.20 mg/dL [facility] Sodium 138 135 - 145 mmol/L [facility] Potassium 4.2 3.5 - 5.0 mmol/L [facility] Comment: Please note: ??Patients with WBC >100,000 may have falsely elevated Potassium levels. ??For accurate Potassium quantification in these patients send serum separator tube (gold top) for subsequent determinations. ??Contact the Clinical Chemistry Laboratory if there are any questions. Chloride 103 98 - 107 mmol/L [facility] Carbon Dioxide 29 22 - 31 mmol/L [facility] Anion Gap 6 5 - 15 mmol/L [facility] Calcium 9.6 8.5 - 10.5 mg/dL [facility] Protein, Total 7.4 6.1 - 8.0 gm/dL [facility] Albumin 4.4 3.2 - 5.2 gm/dL [facility] Aspartate Aminotransferase 16 0 - 30 unit/L [facility] Alanine Aminotransferase 13 0 - 30 unit/L [facility] Alkaline Phosphatase 64 35 - 105 unit/L [facility] Bilirubin, Total 0.3 0.2 - 1.3 mg/dL [facility] Est Glomerular Filtration Rate 80 >=60 mL/min/1. 73 m?? [facility] Comment: This patient? s estimated glomerular filtration rate (eGFR) is between 80 mL/min/1.73 m2 (patients with less muscle mass) and 93 mL/min/1.73 m2 (patients with more muscle mass) [...] and symptoms in addition to eGFR. Blood 07/12/2021 11:2 0 AM EDT 07/12/2021 11:33 AM EDT Narrative Resulting Agency Comment Spec In Lab Isaiah Mcpherson MD CHEMISTRY ORDERAB LES [facility] [place] [address] documented in this encounter Visit Diagnoses Diagnosis Bleeding from finger High risk medication use Encounter for long-term (current) use of other medications Rheumatoid arthritis involving multiple sites with positive rheumatoid factor Osteoarthritis, unspecified osteoarthritis type, unspecified site Bleeding from finger documented in this encounter Care Teams Amr Physician Relationship Specialty Start Date End Date Mikayla Aquino MD PCP - General Family Medicine 07/06/20 documented as of this encounter
--- OUTSIDE RECORDS SUMMARY | 2024-06-19 00:19 | XMS_ITS | Encounter Summary ---
Author Organization [facility] Address [facility] [place] [address] Care Team Providers Care Child Development Specialist Name Role Phone Mikayla Aquino MD Primary Care Provider [phone] Encounter Details Date Type Department Care Team (Late st Contact Info) Description 07/12/2021 11:24 AM EDT - 07/12/2021 11:59 PM EDT Hospital Encounter XRay at [address] [place] [address] Isaiah Mcpherson MD [facility] [place] [address] Bleeding from finger Discharge Disposition: Home Social History Tobacco Use Types Packs/Day Years Used Date Smoking Tobacco: Former Cigarettes Smokeless Tobacco: Never Comments:8 years ago Sex and Gender Information Value Date Recorded Sex Assigned at Not on file Gender Identity Not on file Sexual Orientation Not on file documented as of this encounter Medications at Time of Discharge Medication Sig Dispensed Refills Start Date End Date metHOTREXate 2.5 mg Tablet TAKE 8 TABLETS BY MOUTH ONCE WEEKLY 104 tablet 3 12/22/2020 01/04/2022 folic acid (Folvite) 1 mg Tablet TAKE ONE TABLET BY MOUTH EVERY DAY 90 tablet 3 08/20/2020 11/23/2021 Adalimumab (Humira Pen) 40 mg/0.8 mL Pen Injector Kit Inject 0.8 mLs subcutaneously every 14 days. Inject the contents of one pen (40 mg) subcutaneously once every 14 days. 2 Pen 5 08/12/2020 09/04/2021 predniSONE (Deltasone) 5 mg Tablet 6 tabs X 2 days, then 5 tabs x 2 days, then 4 tabs x 2 days, then 3 tabs x 2 days, then 2 tabs x 2 days, then 1 tab x 2 days. 42 tablet 07/06/2020 01/10/2022 citalopram (CELEXA) 20 mg Tablet daily. 2 01/03/2017 04/24/2022 documented as of this encounter Plan of Treatment Upcoming Encounters Date Type Department Care Team (Late st Contact Info) Description 07/21/2024 1:00 PM EDT Office Visit Rhe[facility]ology at [facility] [place] [address] Isaiah Mcpherson MD [facility] [place] [address] documented as of this encounter Goals Goal Patient Goal Type Associated Problems Recent Progress Patient-Stated? Author [facility] Medication Compliance and Understanding Patient Facing Action Plan Not on track( 024 11:36 AM EDT) No Mckinley Noel, [facility] Note: Reduce Joint damage and flairs, measured by number of office visits for flairs/ x-rays, follow up every 3-6 months documented as of this encounter Procedures Procedure Name Priority Date/Time Associated Diagnosis Comments XR FINGER(S) MIN 2 VIEWS LEFT Routine 07/12/2021 11:35 AM EDT Bleeding from finger documented in this encounter Results * XR [...] who have questions please contact the health home care rn that requested your imaging first. ? Narrative [...] Diffuse soft tissue swelling. Procedure Note Nichole Burno MD - 07/12/2021 EXAMINATION: XR FINGERS MIN [...] patients who have questions please contactthe health home care rn that requested your imaging first. Isaiah Mcpherson MD IMG DX ORDERABLES documented in this encounter Visit Diagnoses Diagnosis Bleeding from finger documented in this encounter Care Teams Child Development Specialist Relationship Specialty Start Date End Date Mikayla Aquino MD PCP - General Family Medicine 07/06/20 documented as of this encounter
--- OUTSIDE RECORDS SUMMARY | 2024-06-19 00:19 | XMS_ITS | Encounter Summary ---
Author Organization [facility] [place] [address] Care Team Providers Care Shoe Cementer Name Role Phone Mikayla Aquino MD Primary Care Provider [phone] Reason for Visit * Reason Comments Medication Refill Encounter Details Date Type Department Care Team (Late st Contact Info) Description 11/22/2021 Ref[place] [address] Isaiah Mcpherson MD [facility] [place] [address] Social History Tobacco Use Types Packs/Day Years [...] 1:00 PM EDT Office [place] [address] Isaiah Mcpherson MD [facility] [place] [address] documented as of this encounter Goals Goal Patient Goal Type Associated Problems Recent Progress Patient-Stated? Author [facility] Medication Compliance and Understanding Patient Facing Action Plan Not on track( 024 11:36 AM EDT) No Mckinley Noel, [facility] Note: Reduce Joint damage and flairs, measured by number of office visits for flairs/ x-rays, follow up every 3-6 months documented as of this encounter Visit Diagnoses Not on filedocumented in this encounter Care Teams Shoe Cementer Relationship Specialty Start Date End Date Mikayla Aquino MD PCP - General Family Medicine 07/06/20 documented as of this encounter
--- OUTSIDE RECORDS SUMMARY | 2024-06-19 00:19 | XMS_ITS | Encounter Summary ---
Author Organization [facility] [place] [address] Care Team Providers Care Leather Goods Sales Representative Name Role Phone Mikayla Aquino MD Primary Care Provider Encounter Details Date Type Department Care Team (Late st Contact Info) Description 06/01/2022 Telephone [place] [phone] Janie Ramirez RN Social History Tobacco Use Types Packs/Day Years Used Date Smoking Tobacco: Former Cigarettes Smokeless Tobacco: Never Comments:8 years ago Sex and Gender Information Value Date Recorded Sex Assigned at Not on file Gender Identity Not on file Sexual Orientation Not on file documented as of this encounter Miscellaneous Notes * Telephone Encounter - Janie Ramirez RN - 06/01/2022 1:52 PM EDT RTC to pt concerning flare symptoms in her hands. Pt states she is having swelling and pain in bilat hands, in all knuckles. Claims she cannot bend her pinky and it is difficult to bend her other fingers as well. Pt denies heat, redness, numbness/burning/tingling or radiating pain at this time. Denies swelling or pain in wrists, elbows or shoulders. Pt is taking 600mg ibuprofen Q8H but it has not provided relief at this time. Pt has also attemptedwarm water soaks to aid in discomfort. Pt is requesting prednisone taper to be sent to [facility] in [place], [place] if possible. documented in this encounter Plan of Treatment Upcoming Encounters Date Type Department Care Team (Late st Contact Info) Description 07/21/2024 1:00 PM EDT Office Visit [facility]umatology at [facility] [place] [address] Isaiah Mcpherson MD [facility] [place] [address] documented as of this encounter Goals Goal Patient Goal Type Associated Problems Recent Progress Patient-Stated? Author [facility] Medication Compliance and Understanding Patient Facing Action Plan Not on track( 024 11:36 AM EDT) No Mckinley Noel, [facility] Note: Reduce Joint damage and flairs, measured by number of office visits for flairs/ x-rays, follow up every 3-6 months documented as of this encounter Visit Diagnoses Not on filedocumented in this encounter Care Teams Leather Goods Sales Representative Relationship Specialty Start Date End Date Mikayla Aquino MD PCP - General Family Medicine 07/06/20 documented as of this encounter
--- OUTSIDE RECORDS SUMMARY | 2024-06-19 00:19 | XMS_ITS | Encounter Summary ---
Author Organization [facility] [place] [address] Care Team Providers Care Expense Analyst Name Role Phone Mikayla Aquino MD Primary Care Provider [phone] Reason for Visit * Reason Comments Specialty Refill Management Encounter Details Date Type Department Care Team (Late st Contact Info) Description 05/18/2021 Specialty [place] [id number] Shefali Quick RPH Social History Tobacco Use Types Packs/Day Years Used Date Smoking Tobacco: Former Cigarettes Smokeless Tobacco: Never Comments:8 years ago Sex and Gender Information Value Date Recorded Sex Assigned at Not on file Gender Identity Not on file Sexual Orientation Not on file documented as of this encounter Progress Notes * Shefali Quick RPH - 05/18/2021 11:20 AM EDT Clinical Management Plan: Refill Specialty [...] Known Allergies Medication Reconciliation Discrepancies (compared to [facility] med list) No Specialty Pharmacy Refill Questionnaire Refill Questionnaire 05/18/2021 What is the name of the specialty medication you are refilling? Humira Are you taking any new medications? No Any new medical condition? No Any new allergies? No Any new side effects that are bothersome? No What date will you need this fill by? 05/29/2021 Adherence: Any missed doses? No Patient understands no changes to current drug regimen were made.. Shefali Quick RPH 05/18/21 11:20 AM documented in this encounter Plan of Treatment Upcoming Encounters Date Type Department Care Team (Late st Contact Info) Description 07/21/2024 1:00 PM EDT Office [place] [address] Isaiah Mcpherson MD [facility] [place] [address] documented as of this encounter Goals Goal Patient Goal Type Associated Problems Recent Progress Patient-Stated? Author [facility] Medication Compliance and Understanding Patient Facing Action Plan Not on track( 024 11:36 AM EDT) No Mckinley Noel [facility] Note: Reduce Joint damage and flairs, measured by number of office visits for flairs/ x-rays, follow up every 3-6 months documented as of this encounter Visit Diagnoses Not on filedocumented in this encounter Care Teams Expense Analyst Relationship Specialty Start Date End Date Mikayla Aquino MD PCP - General Family Medicine 07/06/20 documented as of this encounter
--- OUTSIDE RECORDS SUMMARY | 2024-06-19 00:19 | XMS_ITS | Encounter Summary ---
Author Organization [facility] [place] [address] Care Team Providers Care Rest Room Attendant Name Role Phone Mikayla Aquino MD Primary Care Provider [phone] Encounter Details Date Type Department Care Team (Late st Contact Info) Description 01/03/2021 11:00 AM EST TH Visit (TeleHealth) [place] [address] Isaiah Mcpherson MD [facility] [place] [address] Anxiety; Chronic pain of both knees; Fibromyalgia; High risk medication use; Primary osteoarthritis of both hips; Rheumatoid arthritis involving multiple sites with positive rheumatoid factor Social History Tobacco Use Types Packs/Day Years Used Date Smoking Tobacco: Former Cigarettes Smokeless Tobacco: Never Comments:8 years ago Sex and Gender Information Value Date Recorded Sex Assigned at Not on file Gender Identity Not on file Sexual Orientation Not on file documented as of this encounter Patient Instructions * Patient Instructions* Isaiah Mcpherson MD - 01/03/2021 11:00 AM EST 1. Your recent labs looked great. 2. Taking Tyenol regularly is okay. Do not take over 3000 mg a day. 3. Please hold your methotrexate for the day before, the day of, and a week after each COVID-19 vaccine shot. 4. Continuing the Humira while receiving the vaccines is okay. 5. Follow up in 6 months. 6. Stay safe and well! documented in this encounter Progress Notes * Isaiah Mcpherson MD - 01/03/2021 11:00 AM EST Rheumatology Clinic: Dr. Mcpherson 01/03/2021 [id number] This is a TeleHealth telephone visit for Crystal Felder in follow-up of her rheumatoid arthritis and early osteoarthritis in several areas. She continues to do well in terms of the rheumatoid arthritis on a combination of methotrexate and Humira. The last time she was in she was having bilateral ankle pain and swelling. We thought this was most likely mechanical, but we decided to give her a trial of prednisone taper. At this point, she no longer remembers her response to that. She has had multiple mini-flares since then, so it's hard her to keep track of these individual episodes. But the bottom line is she is doing okay. Today she did not seem quite as skeptical as she usually is about her rheumatoid arthritis being in control. In fact, she readily accepted the fact that she hassome mechanical aches and pains that come and go and move around. Her wrists and ankles and her left knee have been the culprits lately, but it may change tomorrow. In terms of the knee, it is the back sideof the left knee that is bothering her and it feels like bruise. That problem started 2 weeks agowhen the front of that left knee started hurting, but the pain slowly migrated to the back of the knee. As she points out, It's always something. All of these local joint pain symptoms do respond to Tylenol. She wondered if it was safe to take that regularly and I told her that it definitely was.She does not take it to excess. She had lab work just last week that looked fine, including her renal and hepatic function and her blood counts. She still complains of being tired. There was no apparent explanation in her lab work.But again, she has a very physically demanding lifestyle. 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 But she still requires a lot of care at home. During the night, in additionto her caregiving duties, the patient makes yogurt and compost. It being winter, most of the farmers markets in the area are closed, including ones that would go indoors for the winter, but are not this year because of the pandemic. As a result, the workload has declined. They have also decided to hire help this upcoming busy season because they have become so busy. Around February is when things willreally greens picker again. She also tells me that her brother has decided not to leave the farm, as he had threatened to do last year. His leaving would be a big blow to the family operation. In terms of the COVID-19 vaccine, she received the Moderna vaccine this past January 01. She tolerated it well. She had her last methotrexate dose on December 29. I told her to hold her neck shot until January 08. We are recommending that our patients do not receive their methotrexate until a week after the vaccination to allow for the best response possible. Her next shot will be on January 30, and I told her to do the same with the methotrexate that go around. In terms of the methotrexate, she takes it at night. She does feel a little nauseated almost immediately from it. It is gone by the next morning. Since her last visit she is found the meloxicam causes hives on her face and chest, so she no longer has been using that. As noted above, she just aches with Tylenol and that works fine. Patient Active Problem List Diagnosis Code ??? [...] pain R07.0, G89.29 ??? Coccydynia M53.3 Medications 10/17/20 1516 Medication Sig Taking? metHOTREXate 2.5 mg Tablet TAKE 8 TABLETS BY MOUTH ONCE WEEKLY folic acid (Folvite) 1 mg Tablet TAKE ONE TABLET BY MOUTH EVERY DAY Adalimumab (Humira Pen) 40 mg/0.8 mL Pen Injector Kit Inject 0.8 mLs subcutaneously every 14 days. Inject the contents of one pen (40 mg) subcutaneously once every 14 days. predniSONE (Deltasone) 5 mg Tablet 6 tabs X 2 days, then 5 tabs x 2 days, then 4 tabs x 2 days, then 3 tabs x 2 days, then 2 tabs x 2 days, then 1 tab x 2 days. citalopram (CELEXA) 20 mg Tablet daily. Physical Exam: Phone visit only. She sounds well on the phone. She is in good spirits. Assessment: We had a long discussion about her arthritis and her home situation. Things seem prettywell at the moment. She has some aches and pains almost every day, but they respond to Tylenol and then move onto another area. She has nothing persistent and certainly nothing inflammatory-sounding.She has had no infections. We gave her instructions about what to do the dosing of her methotrexatearound the COVID-19 vaccines. She's due for her second one on January 30. We will see her in follow-up in 6 months. She understood the plan. We gave the patient the following specific instructions: 1. Your recent labs looked great. 2. Taking Tyenol regularly is okay. Do not take over 3000 mg a day. 3. Please hold your methotrexate for the day before, the day of, and a week after each COVID-19 vaccine shot. 4. Continuing the Humira while receiving the vaccines is okay. 5. Follow up in 6 months. 6. Stay safe and well! Visit Diagnoses: 1. Anxiety 2. Chronic pain of both knees 3. Fibromyalgia 4. High risk medication use 5. Primary osteoarthritis of both hips 6. Rheumatoid arthritis involving multiple sites with positive rheumatoid factor Total phone time: 24 min, 45 sec. Total visit time: 40 min. Visit level: 40570. documented in this encounter Plan of Treatment Upcoming Encounters Date Type Department Care Team (Late st Contact Info) Description 07/21/2024 1:00 PM EDT Office [place] [address] Isaiah Mcpherson MD [facility] [place] [address] documented as of this encounter Goals Goal Patient Goal Type Associated Problems Recent Progress Patient-Stated? Author [facility] Medication Compliance and Understanding Patient Facing Action Plan Not on track( 024 11:36 AM EDT) No Mckinley Noel, [facility] Note: Reduce Joint damage and flairs, measured by number of office visits for flairs/ x-rays, follow up every 3-6 months documented as of this encounter Visit Diagnoses Diagnosis Anxiety Anxiety state, unspecified Chronic pain of both knees Fibromyalgia Mylagia and myositis, unspecified High risk medication use Encounter for long-term (current) use of other medications Primary osteoarthritis of both hips Primary localized osteoarthrosis, pelvic region and thigh Rheumatoid arthritis involving multiple sites with positive rheumatoid factor documented in this encounter Care Teams Rest Room Attendant Relationship Specialty Start Date End Date Mikayla Aquino MD PCP - General Family Medicine 07/06/20 documented as of this encounter
--- OUTSIDE RECORDS SUMMARY | 2024-06-19 00:19 | XMS_ITS | Encounter Summary ---
Author Organization [facility] [place] [address] Care Team Providers Care Transportation Equipment Painter Name Role Phone Mikayla Aquino MD Primary Care Provider [phone] Reason for Visit * Reason Comments Specialty Pharmacy Review Adalimumab (Hu brett) Encounter Details Date Type Department Care Team (Late st Contact Info) Description 01/10/2022 Specialty [place] [address] Chanell Dorman, [facility] Social History Tobacco Use Types Packs/Day Years Used Date Smoking Tobacco: Former Cigarettes Smokeless Tobacco: Never Comments:8 years ago Sex and Gender Information Value Date Recorded Sex Assigned at Not on file Gender Identity Not on file Sexual Orientation Not on file documented as of this encounter Progress Notes * Chanell Dorman - 01/10/2022 11:59 PM EDT The [facility] has completed a benefits investigation for Crystal Clint Felder to review their eligibility to fill at [facility]. Per patient's medication list they are prescribed Adalimumab (Humira) and the medication is filled at the [facility]. documented in this encounter Plan of Treatment Upcoming Encounters Date Type Department Care Team (Late st Contact Info) Description 07/21/2024 1:00 PM EDT Office [place] [address] Isaiah Mcpherson MD [facility] [place] [address] documented as of this encounter Goals Goal [...] on filedocumented in this encounter Care Teams Transportation Equipment Painter Relationship Specialty Start Date End Date Mikayla Aquino MD PCP - General Family Medicine 07/06/20 documented as of this encounter
--- OUTSIDE RECORDS SUMMARY | 2024-06-19 00:19 | XMS_ITS | Encounter Summary ---
Author Organization [facility] [place] [address] Care Team Providers Care Art Glass Setter Name Role Phone Mikayla Aquino MD Primary Care Provider [phone] Encounter Details Date Type Department Care Team (Late st Contact Info) Description 07/16/2022 Telephone [place] [address] Falguni Ivy MA Social History Tobacco Use Types Packs/Day Years Used Date Smoking Tobacco: Former Cigarettes Smokeless Tobacco: Never Comments:8 years ago Sex and Gender Information Value Date Recorded Sex Assigned at Not on file Gender Identity Not on file Sexual Orientation Not on file documented as of this encounter Miscellaneous Notes * Telephone Encounter - Falguni Ivy RMA - 07/16/2022 1:52 PM EDT Called patient for pre-charting, no answer. CAMMY JOSE documented in this encounter Plan of Treatment Upcoming Encounters Date Type Department Care Team (Late st Contact Info) Description 07/21/2024 1:00 PM EDT Office [place] [address] Isaiah Mcpherson MD [facility] [place] [address] documented as of this encounter Goals Goal Patient Goal Type Associated Problems Recent Progress Patient-Stated? Author [facility] Medication Compliance and Understanding Patient Facing Action Plan Not on track( 024 11:36 AM EDT) No Mckinley Noel, [facility] Note: Reduce Joint damage and flairs, measured by number of office visits for flairs/ x-rays, follow up every 3-6 months documented as of this encounter Visit Diagnoses Not on filedocumented in this encounter Care Teams Art Glass Setter Relationship Specialty Start Date End Date Mikayla Aquino MD PCP - General Family Medicine 07/06/20 documented as of this encounter
--- OUTSIDE RECORDS SUMMARY | 2024-06-19 00:19 | XMS_ITS | Encounter Summary ---
Author Organization [facility] [place] [address] Care Team Providers Care Rainbow Trout Farm Manager Name Role Phone Mikayla Aquino MD Primary Care Provider [phone] Reason for Visit * Reason Comments Medication Management Encounter Details Date Type Department Care Team (Late st Contact Info) Description 05/30/2022 Specialty [place] [phone] Abelino Sarmiento [facility] Social History Tobacco Use Types Packs/Day Years Used Date Smoking Tobacco: Former Cigarettes Smokeless Tobacco: Never Comments:8 years ago Sex and Gender Information Value Date Recorded Sex Assigned at Not on file Gender Identity Not on file Sexual Orientation Not on file documented as of this encounter Progress Notes * Abelino Sarmiento [facility] - 05/30/2022 2:34 PM EDT Clinical Management Plan: Refill Specialty [...] Known Allergies Medication Reconciliation Discrepancies (compared to [facility] med list) No Specialty Pharmacy Refill Questionnaire Refill Questionnaire 05/30/2022 What is the name of the specialty medication you are refilling? humira Are you taking any new medications? No Please explain - Any new medical condition? No Any new allergies? No Any new side effects that are bothersome? No What date will you need this fill by? 06/09/2022 Adherence: Any missed doses? No Patient understands no changes to current drug regimen were made. Abelino Sarmineto RPH 05/30/22 2:37 PM documented in this encounter Plan of Treatment Upcoming Encounters Date Type Department Care Team (Late st Contact Info) Description 07/21/2024 1:00 PM EDT Office [place] [address] Isaiah Mcpherson MD [facility] [place] [address] documented as of this encounter Goals Goal Patient Goal Type Associated Problems Recent Progress Patient-Stated? Author [facility] Medication Compliance and Understanding Patient Facing Action Plan Not on track( 024 11:36 AM EDT) No Mckinley Noel [facility] Note: Reduce Joint damage and flairs, measured by number of office visits for flairs/ x-rays, follow up every 3-6 months documented as of this encounter Visit Diagnoses Not on filedocumented in this encounter Care Teams Rainbow Trout Farm Manager Relationship Specialty Start Date End Date Mikayla Aquino MD PCP - General Family Medicine 07/06/20 documented as of this encounter
--- OUTSIDE RECORDS SUMMARY | 2024-06-19 00:19 | XMS_ITS | Encounter Summary ---
Author Organization [facility] [place] [address] Care Team Providers Care Cargo And Container Inspector Name Role Phone Mikayla Aquino MD Primary Care Provider [phone] Reason for Visit * Reason Comments Medication Management Encounter Details Date Type Department Care Team (Late st Contact Info) Description 06/29/2022 Specialty [place] [phone] George Harrington [facility] Social History Tobacco Use Types Packs/Day Years Used Date Smoking Tobacco: Former Cigarettes Smokeless Tobacco: Never Comments:8 years ago Sex and Gender Information Value Date Recorded Sex Assigned at Not on file Gender Identity Not on file Sexual Orientation Not on file documented as of this encounter Progress Notes * George Harrington RPH - 06/29/2022 3:21 PM EDT Specialty Pharmacy Consultation; George Harrington [facility] Comprehensive Medication Management (CMM) Crystal Felder Diagnosis: RA Therapy Start Date: Fall 2010 Contact in person or via telephone: Phone Ms. Crystal Felder is a 57 y.o. [...] the Clinical Assessment? Yes Summary and Recommendations: Spoke with patient regarding Humira which she has been on for over a decade (11+ years) now. No newmedications or allergies per patient. She continues to have benefit from her biologic. No side effects or issues with injection. Confirms proper storage, handling, and administration. Confirms propersite rotation and allows the medication to come to room temperature prior to most injections. The ones that she doesn't she does notice more immediate irritation upon injection endorsing increased pain.initial discomfort. She estimates she maintains 50%+ improvement in her RA symptoms over baselinebut notes minor flares occurring on a monthly timeframe which will last 2-3 days and primarily affects her hands. Overall she remains highly satisfied with her medication. She had no questions or concerns at the end of our encounter. Clinic follow-up needed: yes - routine Allergies and Drug intolerance: No Known Allergies Problem List: Patient Active Problem List Diagnosis [...] Requirements: no Medication Reconciliation Discrepancies (compared to [facility] med list) no Medication List: Current Outpatient Medications Medication Sig Dispense Refill ??? predniSONE (Deltasone) 5 mg Tablet 6 tabs X 2 days, then 5 tabs x 2 days, then 4 tabs x 2 days,then 3 tabs x 2 days, then 2 tabs x 2 days, then 1 tab x 2 days. 42 tablet 1 ??? DULoxetine DR (Cymbalta) [...] BY MOUTH EVERY DAY 90 tablet 3 ??? Adalimumab (Humira Pen) 40 mg/0.8 mL Pen Injector Kit Inject 0.8 mLs subcutaneously every 14 days. Inject the contents of one pen (40 mg) subcutaneously once every 14 days. 1 kit 11 No current facility-administered medications for this visit. Most Recent Vitals: Ht Readings from Last 1 Encounters: 01/10/22 157.5 cm (5' 2) Wt Readings from Last 3 Encounters: 07/12/21 70.8 kg (156 lb) 07/06/20 71.7 kg (158 lb) 09/30/19 68 kg (150 lb) Temp Readings from Last 3 Encounters: 01/10/22 36.3 ??C (97.4 ??F) (Temporal) 07/12/21 36.6 ??C (97.8 ??F) (Temporal) 07/06/20 37.1 ??C (98.7 ??F) (Temporal) BP Readings from Last 3 Encounters: 01/10/22 134/65 07/12/21 130/75 07/06/20 126/65 Pulse Readings from Last 3 Encounters: 01/10/22 56 07/12/21 53 07/06/20 59 There is no height or weight on file to calculate BMI. Pertinent Lab values: Lab Results Component Value Date NA 143 01/10/2022 K 4.4 01/10/2022 CL 105 01/10/2022 CO2 27 01/10/2022 BUN 12 01/10/2022 CREATININE 0.91 01/10/2022 GLUCOSE 98 01/10/2022 CALCIUM 9.3 01/10/2022 Lab Results Component Value Date ALT 10 01/10/2022 AST 15 01/10/2022 ALKPHOS 62 01/10/2022 BILITOT 0.3 01/10/2022 BILIDIR 0.1 03/05/2017 ALBUMIN 4.2 01/10/2022 PROT 7.2 01/10/2022 Lab Results Component Value Date WBC 5.7 01/10/2022 HGB 13.1 01/10/2022 HCT 38.3 01/10/2022 MCV 96.2 (H) 01/10/2022 PLATELET 271 01/10/2022 No results found for: HA1C Immunization History Administered Date(s) Administered ??? Influenza PF, Split 07/24/2013, 08/11/2014, 09/16/2015 ??? Influenza Vaccine PF, Quadrivalent 08/18/2019 ??? Pneumococcal Polyvalent 23 02/18/2006 ??? Td, adult 02/18/2006 ??? Tuberculin Skin Test, PPD 12/28/2010 Assessment and Recommendations: Patient Counseling Patient informed of specialty services: Yes Treatment Outcomes No data found in the last 10 encounters. Reviewed in detail with patient: Dose appropriateness [...] Social Assessment: Does patient have a primary nurse healthcare manager: No Does patient have an emergency contact on file: Yes Does patient need referral to social worker: No Does patient need referral to advocacy group: No Home Health Assessment: Is the patient in a safe home environment?: Yes Is the patient able to store their medication as directed?: Yes Does the patient have a support network at home?: Yes Reviewed potential home safety hazards with patient: Yes Economic Assessment: Patient is agreeable to medication copay: Yes Actual Copay: $: 0 Days Supply: 28 Welcome Packet and Rights and Responsibilities: Patient provided welcome packet/rights and responsibilities: Yes Date Confirmed: 03/30/19 Confirmation: Signature in [employer] Specialty Med Adherence Adherence Tools Used: calendar, directed education Therapy Assessment: myD-H RAPID-3 Responses 03/04/2017 09/11/2017 08/29/2018 03/03/2019 01/03/2021 RAPID-3 Function 2 2 2.66 3 3 RAPID-3 Pain 5.5 3.5 2.5 4 3.5 RADIP-3 Global 5 5 2.5 3 3.5 RAPID-3 Total Scores 12.5 (High) 10.5 (Moderate) 7.66 (Moderate) 10 (Moderate) 10 (Moderate) Current Medication Dosing/Route/Frequency: Humira 40 mg SC q14 days Appropriate Therapy: Yes Effective: Yes Patient-Reported Side Effects: no Occurrence of recent infections: no Patient Counseling: Administration issues identified: no Rotation of injection sites: Yes Medication room temperature prior to injection: Yes Patient Goals: Patient's specific desired goal: Maintain 50% reduction in RA symptoms Measured by: painful/swollen joints, subjective pain reports Time-frame to meet goal: ongoing Is the patient on track to achieve goals of therapy? Yes Care Plan and Interventions: Care Plan Reviewed and Approved by both Pharmacist and Patient: Yes Did Care Plan Change? No Interventions (if applicable): no Patient experienced change in condition that affects treatment: no Patient Satisfied with Therapy: yes - Pharmacist follow-up needed: Yes Patient understands no changes to current drug regimen were made at the appointment and that [facility] is[facility] (summary located at top of note) for provider review and follow up. George Harrington RPH 06/29/22 4:10 PM documented in this encounter Plan of Treatment Upcoming Encounters Date Type Department Care Team (Late st Contact Info) Description 07/21/2024 1:00 PM EDT Office Visit Rheumatology at [place] [place] [address] Isaiah Mcpherson MD [facility] [address] RHEUMATOLOGY [place] [id number] documented as of this encounter Goals Goal Patient Goal Type Associated Problems Recent Progress Patient-Stated? Author [facility] Medication Compliance and Understanding Patient Facing Action Plan Not on track( 024 11:36 AM EDT) No Mckinley Noel RPH Note: Reduce Joint damage and flairs, measured by number of office visits for flairs/ x-rays, follow up every 3-6 months documented as of this encounter Visit Diagnoses Not on filedocumented in this encounter Care Teams Cargo And Container Inspector Relationship Specialty Start Date End Date Mikayla Aquino MD PCP - General Family Medicine 07/06/20 documented as of this encounter
--- OUTSIDE RECORDS SUMMARY | 2024-06-19 00:19 | XMS_ITS | Encounter Summary ---
[place] [address] Care Team Providers Care Cooker Syrup Name Role Phone Mikayla Aquino MD Primary Care Provider [phone] Reason for Visit * Reason Comments Prior Authorization Humira Pen 40 mg/0.8 ml PNKT Encounter Details Date Type Department Care Team (Late st Contact Info) Description 12/25/2021 Specialty [place] [phone] Fabio Walton, [facility] Social History Tobacco Use Types Packs/Day Years Used Date Smoking Tobacco: Former Cigarettes Smokeless Tobacco: Never Comments:8 years ago Sex and Gender Information Value Date Recorded Sex Assigned at Not on file Gender Identity Not on file Sexual Orientation Not on file documented as of this encounter Progress Notes * Fabio Walton CP[facility] - 12/25/2021 2:51 PM EST [facility], Medication Prior Authorization Submission Patient: Crystal Felder Patient : 1965 Patient Address: [address] [place] [id number] (home) Medication Name: HUMIRA PEN 40 MG/0.8 ML SUBCUTANEOUS KIT Medication ID: [id number] Subscriber Insurance: [place] Medicaid Subscriber Insurance Comment: Fax: Physician: ISAIAH REDMOND Physician Comment: Sent Via: [facility] Gutierrez: [id number] Ref/Case/PA#: Medication Strength Frequency Requested: Humira Pen 40 mg/0,8 ml PNKT Inject 40 mg (1 Pen) Subcutaneously Every 14 Days Qty/Day Supply: 12/25 New Start: Renewal Diagnosis & ICD-10 Code: Rheumatoid Arthritis M06.9 Patient Notified: No [id number] Fabio Walton CP[facility] 12/25/21 2:53 PM * Fabio Walton CPHT - 12/25/2021 2:51 PM EST [facility], Prior Authorization Approval Medication Name: HUMIRA PEN 40 MG/0.8 ML SUBCUTANEOUS KIT Medication ID: [id number] Approval Dates: 12/25/2021 to 12/25/2022 Insurance requirements/notes: RX#[id number] Patient May Fill With Pharmacy Other Notes: None Case/Reference #: [id number] Approval notification Received via: Telephone Copay: $3.00 Copay assistance: None Copay Notes: None Insurance mandated Pharmacy: - Pharmacy Fillable at [facility]: Yes Pharmacy staff will be reaching out to the patient to inform them of [facility]. If applicable, a pharmacist will speak with the patient to offer our specialty pharmacy services and to arrange delivery of their medication. Fabio Walton CP[facility] 12/26/21 8:45 AM documented in this encounter Plan of Treatment Upcoming Encounters Date Type Department Care Team (Late st Contact Info) Description 07/21/2024 1:00 PM EDT [place] [address] Isaiah Redmond MD [facility] [place] [address] documented as of this encounter Goals Goal Patient Goal Type Associated Problems Recent Progress Patient-Stated? Author Home Medication Compliance and Understanding Patient Facing Action Plan Not on track( 024 11:36 AM EDT) No Mckinley Noel, [facility] Note: Reduce Joint damage and flairs, measured by number of office visits for flairs/ x-rays, follow up every 3-6 months documented as of this encounter Visit Diagnoses Not on filedocumented in this encounter Care Teams Cooker Syrup Relationship Specialty Start Date End Date Mikayla Aquino MD PCP - General Family Medicine 07/06/20 documented as of this encounter
--- OUTSIDE RECORDS SUMMARY | 2024-06-19 00:19 | XMS_ITS | Encounter Summary ---
Author [facility] [place] [address] Care Team Providers Care Evp Sales Name Role Phone Mikayla Aquino MD Primary Care Provider [phone] Reason for Visit * Reason Comments Medication Management Specialty Refill Management Encounter Details Date Type Department Care Team (Late st Contact Info) Description 03/02/2022 Specialty [place] [phone] Juan Jose Degroot [facility] Social History Tobacco Use Types Packs/Day Years Used Date Smoking Tobacco: Former Cigarettes Smokeless Tobacco: Never Comments:8 years ago Sex and Gender Information Value Date Recorded Sex Assigned at Not on file Gender Identity Not on file Sexual Orientation Not on file documented as of this encounter Progress Notes * Juan Jose Degroot [facility] - 03/02/2022 2:37 PM EDT Clinical Management Plan: Refill Specialty Pharmacy Consultation; Juan Jose Degroot [facility] Comprehensive Medication Management (CMM) Crystal [...] beneficiary Provider: plan sponsor [facility]ist [facility] Follow-[facility] Time Spent: 1-15 min Method of Contact: by telephone Cognitive Ability: good Cognitive Impairment Status Verified this Year: no Allergies and Drug intolerance: No Known Allergies Medication Reconciliation Discrepancies (compared to [facility] med list) -none Specialty Pharmacy Refill Questionnaire Refill Questionnaire 03/02/2022 What is the name of the specialty medication you are refilling? humira Are you taking any new medications? No Any new medical condition? No Any new allergies? No Any missed doses since your last fill? No Please explain - Any new side effects that are bothersome? No What date will you need this fill by? 03/06/2022 Adherence: Specialty Med Adherence Patient Demonstrates Understanding of Importance of Adherence: Yes Educational Information or Adherence Tools Provided: No Patient Reported X Missed Doses in the Last Month: 0 Provider-Estimated Medication Adherence Level: 90-100% Adherence Tools Used: calendar, directed education Pt understands no changes to current drug regimen were made at the appointment and that [facility] is providing recommendations (summary located at top of note) for provider review and follow up. Juan Jose Degroot RPH 03/02/22 2:38 PM documented in this encounter Plan of Treatment Upcoming Encounters Date Type Department Care Team (Late st Contact Info) Description 07/21/2024 1:00 PM EDT Office [place] [address] Isaiah Mcpherson MD [facility] [place] [address] documented as of this encounter Goals Goal Patient Goal Type Associated Problems Recent Progress Patient-Stated? Author [facility] Medication Compliance and Understanding Patient Facing Action Plan Not on track( 024 11:36 AM EDT) No Mckinley Noel [facility] Note: Reduce Joint damage and flairs, measured by number of office visits for flairs/ x-rays, follow up every 3-6 months documented as of this encounter Visit Diagnoses Not on filedocumented in this encounter Care Teams Evp Sales Relationship Specialty Start Date End Date Mikayla Aquino MD PCP - General Family Medicine 07/06/20 documented as of this encounter
--- OUTSIDE RECORDS SUMMARY | 2024-06-19 00:19 | XMS_ITS | Encounter Summary ---
Author Organization [facility] [place] [address] Care Team Providers Care Generator Switchboard Operator Name Role Phone Mikayla Aquino MD Primary Care Provider [phone] Encounter Details Date Type Department Care Team (Late st Contact Info) Description 08/09/2021 [facility] Only [address] [address] Mikayla Aquino MD [address] [place] [address] Social History Tobacco Use Types Packs/Day Years [...] 1:00 PM EDT [place] [address] Isaiah Mcpherson MD [facility] [place] [address] documented as of this encounter Goals Goal Patient Goal Type Associated Problems Recent Progress Patient-Stated? Author [facility] Medication Compliance and Understanding Patient Facing Action Plan Not on track( 024 11:36 AM EDT) No Mckinley Noel, [facility] Note: Reduce Joint damage and flairs, measured by number of office visits for flairs/ x-rays, follow up every 3-6 months documented as of this encounter Procedures Procedure Name Priority Date/Time Associated Diagnosis Comments MAMMO SCREENING CAD BILATERAL Routine 08/09/2021 3:14 PM EDT documented in this encounter Results * Mammo Screening Cad Bilateral (08/09/2021 3:14 PM EDT) PT CLASS O DH RAD ADMITDTTM DH RAD PT RAD INFO [id number]^HO MAN^FAY^F DH RAD EXAM DESC MADDSC^SCREEN MAMMO BL INCLUDES CAD^RIS DH RAD Anatomical Region Laterality Modality Breast Bilateral Mammography Impressions 08/10/2021 12:03 PM EDT BI-RADS category 1: negative- No mammographic evidence of malignancy. RECOMMENDATION: * Regular screening mammograms starting between age 40 and 50 reduces the risk of from breast cancer. * All screening tests have both risks and benefits. These risks and benefits should be assessed for each individual patient through discussion with their provider to determine their preferred breast cancer screening schedule. * Women should report any breast changes to a health care provider right away. * Some women, because of their family [...] in the care of this patient. If you are a health care provider and have any questions regarding this report, please contact the number below. For patients who have questions please contact the health career and guidance counselor that requested your imaging first. Thank you for letting us participate in the care of this patient. ??If you are a health care provider and have any questions regarding this report, please contact the number below. ??For patients who have questions please contact the health career and guidance counselor that requested your imaging first. ? Electronically signed by: Yovany Wade MD, [facility] ([phone]), at 08/10/2021 12:03 PM Narrative 08/10/2021 12:03 PM EDT EXAMINATION: SCREEN MAMMO BL INCLUDES CAD CLINICAL HISTORY: Screening mammogram for malignant neoplasm breast Family history of breast cancer: None Reproductive history: Parous No personal history of breast cancer. COMPARISON: Previous mammograms were reviewed. TECHNIQUE: Bilateral MLO and CC digital mammograms were obtained and reviewed with CAD. 2-D and 3-D tomosynthesis images were obtained. FINDINGS: There are no suspicious microcalcifications, masses, or areas of distortion. No changes compared to prior studies. Breast density: There are scattered areas of fibroglandular density. Procedure Note Yovany Wade MD - 08/10/2021 EXAMINATION: SCREEN MAMMO BL INCLUDES CAD CLINICAL HISTORY: Screening mammogram for malignant neoplasm breast Family history of breast cancer: None Reproductive [...] a woman is in good health and isexpected to live 10 years or longer. * Screening mammography may not detect 10-15% of breast cancers. Thank you for letting us participate in the care of this patient. If youare a health care provider and have any questions regarding this report,please contact the number below. For patients who have questions please contactthe health career and guidance counselor that requested your imaging first. Thank you for letting us participate in the care of this patient. If youare a health care provider and have any questions regarding this report,please contact the number below. For patients who have questions please contactthe health career and guidance counselor that requested your imaging first. Electronically signed by: Yovany Wade MD, [facility]([phone]), at 08/10/2021 12:03 PM Mikayla Aquino MD IMG MAMMO ORDERABLES documented in this encounter Visit Diagnoses Not on filedocumented in this encounter Care Teams Generator Switchboard Operator Relationship Specialty Start Date End Date Mikayla Aquino MD PCP - General Family Medicine 07/06/20 documented as of this encounter
--- OUTSIDE RECORDS SUMMARY | 2024-06-19 00:19 | XMS_ITS | Encounter Summary ---
Author Organization [facility] [place] [address] Care Team Providers Care Clinical Admissions Manager Name Role Phone Mikayla Aquino MD Primary Care Provider [phone] Encounter Details Date Type Department Care Team (Late st Contact Info) Description 05/16/2022 Interpretation Only [address] [id number] Elba Bai, [place] [address] [place] [address] Social History Tobacco Use Types Packs/Day Years [...] 1:00 PM EDT Office [place] [address] Isaiah Mcpherson MD [facility] [place] [address] [place] [address] documented as of this encounter Goals Goal Patient Goal Type Associated Problems Recent Progress Patient-Stated? Author [facility] Medication Compliance and Understanding Patient Facing Action Plan Not on track( 024 11:36 AM EDT) No Mckinley Noel, [facility] Note: Reduce Joint damage and flairs, measured by number of office visits for flairs/ x-rays, follow up every 3-6 months documented as of this encounter Procedures Procedure Name Priority Date/Time Associated Diagnosis Comments XR FOOT MIN 3 VIEWS RIGHT Routine 05/16/2022 4:14 PM EDT documented in this encounter Results * XR Foot Min 3 views Right (Generic) (05/16/2022 4:14 PM EDT) PT CLASS O RAD ADMITDTTM RAD PT RAD MD INFO [id number]^W ILTON^ELBA^ P RAD EXAM DESC [id number]^XR RIGHT FOOT ROUTINE^RIS RAD Anatomical Region Laterality Modality Foot Right Radiographic Tarsha ging Impressions 05/16/2022 4:31 PM EDT Degenerative changes as above. Subjectively decreased bone mineralization. No acute fracture or dislocation. Thank you for letting us participate in the care of this patient. ??If you are a health care provider and have any questions regarding this report, please contact the number below. ??For patients who have questions please contact the health foster care worker that requested your imaging first. ? Narrative [...] patients who have questions please contactthe health foster care worker that requested your imaging first. Electronically signed by: Yovany Wade MD, [facility]([phone]), at 05/16/2022 4:31 PM Elba Bai DPM IMG DX ORDERABLES documented in this encounter Visit Diagnoses Not on filedocumented in this encounter Care Teams Clinical Admissions Manager Relationship Specialty Start Date End Date Mikayla Aquino MD PCP - General Family Medicine 07/06/20 documented as of this encounter
--- OUTSIDE RECORDS SUMMARY | 2024-06-19 00:19 | XMS_ITS | Encounter Summary ---
Author Organization [facility] [place] [address] Care Team Providers Care Plater Printed Circuit Board Panels Name Role Phone Mikayla Aquino MD Primary Care Provider [phone] Reason for Visit * Reason Comments Specialty Refill Management Encounter Details Date Type Department Care Team (Late st Contact Info) Description 03/27/2022 Specialty [place] [address] Traci Smith, [facility] Social History Tobacco Use Types Packs/Day Years Used Date Smoking Tobacco: Former Cigarettes Smokeless Tobacco: Never Comments:8 years ago Sex and Gender Information Value Date Recorded Sex Assigned at Not on file Gender Identity Not on file Sexual Orientation Not on file documented as of this encounter Progress Notes * Traci Smith CPHT - 03/27/2022 3:03 PM EDT Clinical Management Plan: Refill Specialty Pharmacy Consultation; Traci Smith CPHT Comprehensive Medication Management (CMM) Crystal Felder [...] Medication Reconciliation Discrepancies (compared to [facility] med list) No Specialty Pharmacy Refill Questionnaire Refill Questionnaire 03/27/2022 What is the name of the specialty medication you are refilling? Humira Pen 40mg/0.8ml Are you taking any new medications? No Any new medical condition? No Any new allergies? No Any new side effects that are bothersome? No What date will you need this fill by? 04/03/2022 Adherence: Any missed doses? No Patient understands no changes to current drug regimen were made. Traci Smith CPHT 03/27/22 3:04 PM documented in this encounter Plan of Treatment Upcoming Encounters Date Type Department Care Team (Late st Contact Info) Description 07/21/2024 1:00 PM EDT Office [place] [address] Isaiah Mcpherson MD [facility] [place] [address] documented as of this encounter Goals Goal Patient Goal Type Associated Problems Recent Progress Patient-Stated? Author [facility] Medication Compliance and Understanding Patient Facing Action Plan Not on track( 024 11:36 AM EDT) No Mckinley Noel, [facility] Note: Reduce Joint damage and flairs, measured by number of office visits for flairs/ x-rays, follow up every 3-6 months documented as of this encounter Visit Diagnoses Not on filedocumented in this encounter Care Teams Plater Printed Circuit Board Panels Relationship Specialty Start Date End Date Mikayla Aquino MD PCP - General Family Medicine 07/06/20 documented as of this encounter
--- OUTSIDE RECORDS SUMMARY | 2024-06-19 00:19 | XMS_ITS | Encounter Summary ---
Author Organization [facility] [place] [address] Care Team Providers Care Glass Production Machine Operator Name Role Phone Mikayla Aquino MD Primary Care Provider [phone] Reason for Visit * Reason Comments Medication Refill Encounter Details Date Type Department Care Team (Late st Contact Info) Description 12/22/2020 [place] [address] Isaiah Mcpherson MD [facility] [place] [address] High risk medication use (Primary Dx) Social History Tobacco Use Types Packs/Day Years Used Date Smoking Tobacco: Former Cigarettes Smokeless Tobacco: Never Comments:8 years ago Sex and Gender Information Value Date Recorded Sex Assigned at Not on file Gender Identity Not on file Sexual Orientation Not on file documented as of this encounter Miscellaneous Notes * Telephone Encounter - Chon Barraza RN - 12/22/2020 1:50 PM EST Labs mailed to Crystal to have completed. Rheumatology appointment in the last 6 months? Yes RN confirm MTX dose? 20 mg weekly Most recent labs: External labs? No [ WBC Date Value Ref Range Status 07/06/2020 6.1 4.0 - 9.5 x10(3)/mcL Final Hemoglobin Date Value Ref Range Status 07/06/2020 12.0 11.7 - 15.5 gm/dL Final MCV Date Value Ref Range Status 07/06/2020 97.0 (H) 82.6 - 94.4 fL Final Platelets Date Value Ref Range Status 07/06/2020 249 145 - 357 x10(3)/mcL Final Creatinine Date Value Ref Range Status 07/06/2020 0.65 (L) 0.70 - 1.20 mg/dL Final Albumin Date Value Ref Range Status 07/06/2020 4.1 3.2 - 5.2 gm/dL Final AST Date Value Ref Range Status 07/06/2020 14 0 - 30 unit/L Final ALT Date Value Ref Range Status 07/06/2020 13 0 - 30 unit/L Final ] If last labs >12 weeks, were new labs ordered per protocol by RN? Yes Follow-up appointment scheduled: Yes Routed to [facility] for follow-up scheduling: No documented in this encounter Plan of Treatment Upcoming Encounters Date Type Department Care Team (Late st Contact Info) Description 07/21/2024 1:00 PM EDT Office [place] [address] Isaiah Mcpherson MD [facility] [place] [place] [address] documented as of this encounter Goals Goal Patient Goal Type Associated Problems Recent Progress Patient-Stated? Author [facility] Medication Compliance and Understanding Patient Facing Action Plan Not on track( 024 11:36 AM EDT) No Mckinley Noel, [facility] Note: Reduce Joint damage and flairs, measured by number of office visits for flairs/ x-rays, follow up every 3-6 months documented as of this encounter Visit Diagnoses Diagnosis High risk medication use- Primary Encounter for long-term (current) use of other medications documented in this encounter Care Teams Glass Production Machine Operator Relationship Specialty Start Date End Date Mikayla Aquino MD PCP - General Family Medicine 07/06/20 documented as of this encounter
--- OUTSIDE RECORDS SUMMARY | 2024-06-19 00:19 | XMS_ITS | Encounter Summary ---
Author Organization [facility] [place] [address] Care Team Providers Care Certified Pharmacy Tech Name Role Phone Mikayla Aquino MD Primary Care Provider [phone] Reason for Visit * Reason Comments Medication Refill Encounter Details Date Type Department Care Team (Late st Contact Info) Description 11/10/2021 Specialty [place] [phone] George Harrington [facility] Social History Tobacco Use Types Packs/Day Years Used Date Smoking Tobacco: Former Cigarettes Smokeless Tobacco: Never Comments:8 years ago Sex and Gender Information Value Date Recorded Sex Assigned at Not on file Gender Identity Not on file Sexual Orientation Not on file documented as of this encounter Progress Notes * George Harrington Bernice - 11/10/2021 3:33 PM EST Clinical Management Plan: Refill Specialty Pharmacy Consultation; George Harrington [facility] Comprehensive Medication Management (CMM) Crystal Felder [...] Known Allergies Medication Reconciliation Discrepancies (compared to [facility] med list) No Specialty Pharmacy Refill Questionnaire Refill Questionnaire 11/10/2021 What is the name of the specialty medication you are refilling? Humira Are you taking any new medications? No Any new medical condition? No Any new allergies? No Any new side effects that are bothersome? No What date will you need this fill by? 11/17/2021 Adherence: Any missed doses? No Patient understands no changes to current drug regimen were made. George Harrington RPH 11/10/21 3:34 PM documented in this encounter Plan of Treatment Upcoming Encounters Date Type Department Care Team (Late st Contact Info) Description 07/21/2024 1:00 PM EDT [place] [address] Isaiah Mcpherson MD [facility] [place] [address] documented as of this encounter Goals Goal Patient Goal Type Associated Problems Recent Progress Patient-Stated? Author [facility] Medication Compliance and Understanding Patient Facing Action Plan Not on track( 024 11:36 AM EDT) No Mckinley Noel, [facility] Note: Reduce Joint damage and flairs, measured by number of office visits for flairs/ x-rays, follow up every 3-6 months documented as of this encounter Visit Diagnoses Not on filedocumented in this encounter Care Teams Certified Pharmacy Tech Relationship Specialty Start Date End Date Mikayla Aquino MD PCP - General Family Medicine 07/06/20 documented as of this encounter
--- OUTSIDE RECORDS SUMMARY | 2024-06-19 00:19 | XMS_ITS | Encounter Summary ---
Author Organization [facility] [place] [address] Care Team Providers Care Advertising Account Representative Name Role Phone Mikayla Aquino MD Primary Care Provider [phone] Reason for Visit * Reason Comments Medication Refill Encounter Details Date Type Department Care Team (Late st Contact Info) Description 01/04/2022 [place] [address] Isaiah Mcpherson MD [facility] [place] [address] [place] [address] Social History Tobacco Use Types Packs/Day Years [...] 1:00 PM EDT [place] [address] Isaiah Mcpherson MD [facility] [place] [address] [place] [address] documented as of this encounter Goals Goal Patient Goal Type Associated Problems Recent Progress Patient-Stated? Author [facility] Medication Compliance and Understanding Patient Facing Action Plan Not on track( 024 11:36 AM EDT) No Mckinley Noel, [facility] Note: Reduce Joint damage and flairs, measured by number of office visits for flairs/ x-rays, follow up every 3-6 months documented as of this encounter Visit Diagnoses Not on filedocumented in this encounter Care Teams Advertising Account Representative Relationship Specialty Start Date End Date Mikayla Aquino MD PCP - General Family Medicine 07/06/20 documented as of this encounter
--- OUTSIDE RECORDS SUMMARY | 2024-06-19 00:19 | XMS_ITS | Encounter Summary ---
Author Organization [facility] [place] [address] Care Team Providers Care Compressor Station Operator Name Role Phone Mikayla Aquino MD Primary Care Provider [phone] Reason for Visit * Reason Comments Specialty Refill Management Encounter Details Date Type Department Care Team (Late st Contact Info) Description 08/09/2022 Specialty [place] [address] Traci Smith, [facility] Social History Tobacco Use Types Packs/Day Years Used Date Smoking Tobacco: Former Cigarettes Smokeless Tobacco: Never Comments:8 years ago Sex and Gender Information Value Date Recorded Sex Assigned at Not on file Gender Identity Not on file Sexual Orientation Not on file documented as of this encounter Progress Notes * Traci Smith CPHT - 08/09/2022 12:18 PM EDT Clinical Management Plan: Refill Specialty [...] Known Allergies Medication Reconciliation Discrepancies (compared to [facility] med list) No Specialty Pharmacy Refill Questionnaire Refill Questionnaire 08/09/2022 What is the name of the specialty medication you are refilling? Humira Are you taking any new medications? No Please explain - Any new medical condition? No Any new allergies? No Any new side effects that are bothersome? No What date will you need this fill by? 08/21/2022 Adherence: Any missed doses? No Patient understands no changes to current drug regimen were made. Traci Smith CPHT 08/09/22 12:19 PM documented in this encounter Plan of Treatment Upcoming Encounters Date Type Department Care Team (Late st Contact Info) Description 07/21/2024 1:00 PM EDT [place] [address] Isaiah Mcpherson MD [facility] [place] [address] documented as of this encounter Goals Goal Patient Goal Type Associated Problems Recent Progress Patient-Stated? Author [facility] Medication Compliance and Understanding Patient Facing Action Plan Not on track( 024 11:36 AM EDT) No Mckinley Noel, [facility] Note: Reduce Joint damage and flairs, measured by number of office visits for flairs/ x-rays, follow up every 3-6 months documented as of this encounter Visit Diagnoses Not on filedocumented in this encounter Care Teams Compressor Station Operator Relationship Specialty Start Date End Date Mikayla Aquino MD PCP - General Family Medicine 07/06/20 documented as of this encounter
--- OUTSIDE RECORDS SUMMARY | 2024-06-19 00:19 | XMS_ITS | Encounter Summary ---
Author Organization [facility] [place] [address] Care Team Providers Care Bottom Liquor Attendant Name Role Phone Mikayla Aquino MD Primary Care Provider [phone] Encounter Details Date Type Department Care Team (Late st Contact Info) Description 06/03/2022 Orders [place] [phone] Isaiah Mcpherson MD [facility] [place] [address] Rheumatoid arthritis involving multiple sites with positive [...] 1:00 PM EDT Office [place] [address] Isaiah Mcpherson MD [facility] [place] [address] documented as of this encounter Goals Goal [...] factor documented in this encounter Care Teams Bottom Liquor Attendant Relationship Specialty Start Date End Date Mikayla Aquino MD PCP - General Family Medicine 07/06/20 documented as of this encounter
--- OUTSIDE RECORDS SUMMARY | 2024-06-19 00:19 | XMS_ITS | Encounter Summary ---
Author Organization [facility] [place] [address] Care Team Providers Care Mix Crusher Operator Name Role Phone Mikayla Aquino MD Primary Care Provider [phone] Encounter Details Date Type Department Care Team (Late st Contact Info) Description 08/09/2021 [facility] Only [address] [address] Mikayla Aquino MD [address] [place] [address] Social History Tobacco Use Types Packs/Day Years [...] 1:00 PM EDT Office [place] [address] Isaiah Mcpherson MD [facility] [place] [address] documented as of this encounter Goals Goal Patient Goal Type Associated Problems Recent Progress Patient-Stated? Author [facility] Medication Compliance and Understanding Patient Facing Action Plan Not on track( 024 11:36 AM EDT) No Mckinley Noel, [facility] Note: Reduce Joint damage and flairs, measured by number of office visits for flairs/ x-rays, follow up every 3-6 months documented as of this encounter Procedures Procedure Name Priority Date/Time Associated Diagnosis Comments MAMMO SCREENING CAD AND DAVIDSON BILATERAL Routine 08/09/2021 3:12 PM EDT documented in this encounter Results * Mammo Screening Cad and Davidson Bilateral (08/09/2021 3:12 PM EDT) PT CLASS O DH RAD ADMITDTTM DH RAD PT DH RAD INFO [id number]^LUDWIG^ FAY^F DH RAD EXAM DESC MADDSCTO^BREAST SCREEN TOMOSYNTHESIS BI^RIS DH RAD Anatomical Region Laterality Modality Breast Bilateral Mammography Impressions 08/09/2021 4:26 PM EDT BI-RADS ??category 1: negative- No [...] have questions please contact the health career technology teacher that requested your imaging first. ? Narrative 08/09/2021 4:26 PM EDT EXAMINATION: BREAST SCREEN TOMOSYNTHESIS BI CLINICAL HISTORY: Screening mammogram for malignant neoplasm [...] density. Procedure Note Yovany Wade MD - 08/09/2021 EXAMINATION: BREAST SCREEN TOMOSYNTHESIS BI CLINICAL HISTORY: Screening mammogram for malignant neoplasm [...] who have questions please contactthe health career technology teacher that requested your imaging first. Mikayla Aquino MD IMG MAMMO ORDERABLES documented in this encounter Visit Diagnoses Not on filedocumented in this encounter Care Teams Mix Crusher Operator Relationship Specialty Start Date End Date Mikayla Aquino MD PCP - General Family Medicine 07/06/20 documented as of this encounter
--- OUTSIDE RECORDS SUMMARY | 2024-06-19 00:19 | XMS_ITS | Encounter Summary ---
Author Organization [facility] [place] [address] Care Team Providers Care Visual Designer Name Role Phone Mikayla Aquino MD Primary Care Provider [phone] Reason for Visit * Reason Comments Medication Management Patient Education Encounter Details Date Type Department Care Team (Late st Contact Info) Description 03/14/2021 Specialty [place] [address] Mckinley Noel, [facility] Social History Tobacco Use Types Packs/Day Years Used Date Smoking Tobacco: Former Cigarettes Smokeless Tobacco: Never Comments:8 years ago Sex and Gender Information Value Date Recorded Sex Assigned at Not on file Gender Identity Not on file Sexual Orientation Not on file documented as of this encounter Progress Notes * Mckinley Noel [facility] - 03/14/2021 1:10 PM EDT Clinical Management Plan: Refill Specialty Pharmacy Consultation; Mckinley Noel [facility] Comprehensive Medication Management (CMM) Crystal [...] Known Allergies Medication Reconciliation Discrepancies (compared to [facility] med list) No Specialty Pharmacy Refill Questionnaire Refill Questionnaire 03/14/2021 What is the name of the specialty medication you are refilling? humira Are you taking any new medications? No Any new medical condition? No Any new allergies? No Any new side effects that are bothersome? No What date will you need this fill by? 03/28/2021 Adherence: Any missed doses? No Patient understands no changes to current drug regimen were made.. Mckinley Noel RPH 03/14/21 1:11 PM documented in this encounter Plan of Treatment Upcoming Encounters Date Type Department Care Team (Late st Contact Info) Description 07/21/2024 1:00 PM EDT Office [place] [address] Isaiah Mcpherson MD [facility] [place] [address] documented as of this encounter Goals Goal Patient Goal Type Associated Problems Recent Progress Patient-Stated? Author [facility] Medication Compliance and Understanding Patient Facing Action Plan Not on track( 024 11:36 AM EDT) No Mckinley Noel [facility] Note: Reduce Joint damage and flairs, measured by number of office visits for flairs/ x-rays, follow up every 3-6 months documented as of this encounter Visit Diagnoses Not on filedocumented in this encounter Care Teams Visual Designer Relationship Specialty Start Date End Date Mikayla Aquino MD PCP - General Family Medicine 07/06/20 documented as of this encounter
--- OUTSIDE RECORDS SUMMARY | 2024-06-19 00:19 | XMS_ITS | Encounter Summary ---
Author Organization [place] [address] Care Team Providers Care Machinist Supervisor Name Role Phone Mikayla Aquino MD Primary Care Provider [phone] Encounter Details Date Type Department Care Team (Late st Contact Info) Description 10/17/2021 Specialty [place] [phone] George Harrington [facility] Social History Tobacco Use Types Packs/Day Years Used Date Smoking Tobacco: Former Cigarettes Smokeless Tobacco: Never Comments:8 years ago Sex and Gender Information Value Date Recorded Sex Assigned at Not on file Gender Identity Not on file Sexual Orientation Not on file documented as of this encounter Progress Notes * George Harrington RPH - 10/17/2021 3:21 PM EST Clinical Management Plan: Refill Specialty Pharmacy Consultation; George Harrington Bernice Comprehensive Medication Management (CMM) Crystal Felder [...] Known Allergies Medication Reconciliation Discrepancies (compared to [facility] med list) No Specialty Pharmacy Refill Questionnaire Refill Questionnaire 10/17/2021 What is the name of the specialty medication you are refilling? Humira Are you taking any new medications? No Any new medical condition? No Any new allergies? No Any new side effects that are bothersome? No What date will you need this fill by? 10/20/2021 Adherence: Any missed doses? No Patient understands no changes to current drug regimen were made. George Harrington RPH 10/17/21 3:22 PM documented in this encounter Plan of Treatment Upcoming Encounters Date Type Department Care Team (Late st Contact Info) Description 07/21/2024 1:00 PM EDT Office [place] [address] Isaiah Mcpherson MD [facility] [place] [address] documented as of this encounter Goals Goal Patient Goal Type Associated Problems Recent Progress Patient-Stated? Author [facility] Medication Compliance and Understanding Patient Facing Action Plan Not on track( 024 11:36 AM EDT) No Mckinley Noel [facility] Note: Reduce Joint damage and flairs, measured by number of office visits for flairs/ x-rays, follow up every 3-6 months documented as of this encounter Visit Diagnoses Not on filedocumented in this encounter Care Teams Machinist Supervisor Relationship Specialty Start Date End Date Mikayla Aquino MD PCP - General Family Medicine 07/06/20 documented as of this encounter
--- OUTSIDE RECORDS SUMMARY | 2024-06-19 00:19 | XMS_ITS | Encounter Summary ---
Author Organization [facility] [place] [address] Care Team Providers Care Relief Docking Master Name Role Phone Mikayla Aquino MD Primary Care Provider [phone] Reason for Visit * Reason Comments Specialty Refill Management Encounter Details Date Type Department Care Team (Late st Contact Info) Description 08/11/2021 Specialty [place] [phone] Shefali Quick RPH Social History Tobacco Use Types Packs/Day Years Used Date Smoking Tobacco: Former Cigarettes Smokeless Tobacco: Never Comments:8 years ago Sex and Gender Information Value Date Recorded Sex Assigned at Not on file Gender Identity Not on file Sexual Orientation Not on file documented as of this encounter Progress Notes * Shefali Quick RPH - 08/11/2021 2:11 PM EDT Clinical Management Plan: Refill Specialty [...] Known Allergies Medication Reconciliation Discrepancies (compared to [facility] med list) No Specialty Pharmacy Refill Questionnaire Refill Questionnaire 08/11/2021 What is the name of the specialty medication you are refilling? Humira Are you taking any new medications? No Any new medical condition? No Any new allergies? No Any new side effects that are bothersome? No What date will you need this fill by? 08/15/2021 Adherence: Any missed doses? No Patient understands no changes to current drug regimen were made. Shefali Quick RPH 08/11/21 2:13 PM documented in this encounter Plan of Treatment Upcoming Encounters Date Type Department Care Team (Late st Contact Info) Description 07/21/2024 1:00 PM EDT Office [place] [address] Isaiah Mcpherson MD [facility] [place] [address] documented as of this encounter Goals Goal Patient Goal Type Associated Problems Recent Progress Patient-Stated? Author [facility] Medication Compliance and Understanding Patient Facing Action Plan Not on track( 024 11:36 AM EDT) No Mckinley Noel [facility] Note: Reduce Joint damage and flairs, measured by number of office visits for flairs/ x-rays, follow up every 3-6 months documented as of this encounter Visit Diagnoses Not on filedocumented in this encounter Care Teams Relief Docking Master Relationship Specialty Start Date End Date Mikayla Aquino MD PCP - General Family Medicine 07/06/20 documented as of this encounter
--- OUTSIDE RECORDS SUMMARY | 2024-06-19 00:20 | XMS_ITS | Encounter Summary ---
Author Organization [facility] [place] [address] Care Team Providers Care Switch Adjuster Name Role Phone Anaya Jennifer Coffey APRN Primary Care Provider [phone] Encounter Details Date Type Department Care Team (Late st Contact Info) Description 08/18/2019 Telephone [place] [phone] Anjelica Alaniz, RN Social History Tobacco Use Types Packs/Day Years Used Date Smoking Tobacco: Former Cigarettes Smokeless Tobacco: Never Comments:8 years ago Sex and Gender Information Value Date Recorded Sex Assigned at Not on file Gender Identity Not on file Sexual Orientation Not on file documented as of this encounter Miscellaneous Notes * Telephone Encounter - Anjelica Alaniz RN - 08/18/2019 3:13 PM EDT Fluoroscopy Procedure Request Procedure Requested: coccygeal nerve block Date(s) of Last Procedure: 06/30/19 Did requested procedure relieve pain? __X_ Yes - For how long 2 weeks ? 40% of relief received from previous injection. What is your current Pain Score (1-10 range)? 5 /10 Have you had any steroid injections anywhere in your body within the last two weeks? no Patient taking any NSAIDs? _X__ No Patient taking Aspirin? _X__ No Patient taking anticoagulants? __X_ No Patient has pacemaker/defibrillator: No Changes in usual pain pattern or pertinent recent trauma or surgery? _X__ No, patient transferred or will be contacted by fire apparatus engineer to make appointment for requested procedure. Patient's questions regarding requested procedure were answered and patient verbalized understanding. Patient knows how to contact the [facility] and understands that they may do so at any time should they have further questions or concerns. Anjelica Alaniz, RN documented in this encounter Plan of Treatment Upcoming Encounters Date Type Department Care Team (Late st Contact Info) Description 07/21/2024 1:00 PM EDT Office [place] [address] Isaiah Mcpherson MD [facility] [place] [address] documented as of this encounter Visit Diagnoses Not on filedocumented in this encounter Care Teams Switch Adjuster Relationship Specialty Start Date [place] [address] PCP - General Family Medicine 06/03/19 07/05/20 documented as of this encounter
--- OUTSIDE RECORDS SUMMARY | 2024-06-19 00:20 | XMS_ITS | Encounter Summary ---
Author Organization [facility] [place] [address] Care Team Providers Care Wet Machine Operator Name Role Phone Jennifer Anaya Erlinda HINOJOSA Primary Care Provider [phone] Reason for Visit * Reason Comments Medication Management Encounter Details Date Type Department Care Team (Late st Contact Info) Description 06/06/2020 Specialty [place] [phone] Sera Babcock RPH Social History Tobacco Use Types Packs/Day Years Used Date Smoking Tobacco: Former Cigarettes Smokeless Tobacco: Never Comments:8 years ago Sex and Gender Information Value Date Recorded Sex Assigned at Not on file Gender Identity Not on file Sexual Orientation Not on file documented as of this encounter Progress Notes * Sera Babcock RPH - 06/06/2020 2:31 PM EDT Specialty Pharmacy Consultation; Sera Babcock RPH Comprehensive Medication Management (CMM): Specialty Consult, Opt Out Crystal Felder Diagnosis: RA Therapy Start Date: Fall 2010 Contact in person or via telephone: Telephone Ms. Crystal Felder is a 55 y.o. [...] Clinical Assessment? No Summary and Recommendations: Crystal reports that the Humira has been helping a lot with her RA and has had no administration issues. She reports no changes in medications, medical conditions, or allergies. She is due to inject her next dose 06/08/20 and we will be shipping her medication out tomorrow so she can inject on time. Economic Assessment: Patient is agreeable to medication copay: Yes Copay Amount: 3.00 Day Supply: 28 Date Needed: 06/08/20 Therapy Assessment: Appropriate Therapy: Yes Current Medication Dosing/Route/Frequency: Humira 40mg/0.8ml PNKT inject 1 pen subq every 2 weeks Additional equipment/supplies required: no Care Plan Reviewed and Approved by Pharmacist : Yes Medications Reviewed: Yes Medications reconciled: No Allergies Reviewed:Yes Allergies reconciled: No Pharmacist follow-up needed: Yes Informed patient of specialty pharmacy services: Yes -Patient will be provided with welcome packet: Yes Date to be provided: 04/2019 Delivery Method: Mail -Patient returned signed Rights & Responsibilities: Yes Date to be provided: 04/2019 Delivery Method: Mail -Patient is aware a licensed pharmacist is [...] review and follow up. Sera Babcock RPH 06/06/20 2:32 PM documented in this encounter Plan of Treatment Upcoming Encounters Date Type Department Care Team (Late st Contact Info) Description 07/21/2024 1:00 PM EDT Office [place] [address] Isaiah Mcpherson MD [facility] [place] [address] documented as of this encounter Goals Goal Patient Goal Type Associated Problems Recent Progress Patient-Stated? Author [facility] Medication Compliance and Understanding Patient Facing Action Plan Not on track( 024 11:36 AM EDT) No Mckinley Noel RP Note: Reduce Joint damage and flairs, measured by number of office visits for flairs/ x-rays, follow up every 3-6 months documented as of this encounter Visit Diagnoses Not on filedocumented in this encounter Care Teams Wet Machine Operator Relationship Specialty Start Date [place] [address] PCP - General Family Medicine 06/03/19 07/05/20 documented as of this encounter
--- OUTSIDE RECORDS SUMMARY | 2024-06-19 00:20 | XMS_ITS | Encounter Summary ---
Author Organization [facility] [place] [address] Care Team Providers Care Trade Economist Name Role Phone Mikayla Aquino MD Primary Care Provider [phone] Reason for Visit * Reason Comments Medication Refill Encounter Details Date Type Department Care Team (Late st Contact Info) Description 08/19/2020 Refill [place] [address] Isaiah Mcpherson MD [facility] [place] [place] [address] Social History Tobacco Use Types Packs/Day Years [...] 1:00 PM EDT Office [place] [address] Isaiah Mcpherson MD [facility] [place] [address] documented as of this encounter Goals Goal Patient Goal Type Associated Problems Recent Progress Patient-Stated? Author [facility] Medication Compliance and Understanding Patient Facing Action Plan Not on track( 024 11:36 AM EDT) No Mckinley Noel, [facility] Note: Reduce Joint damage and flairs, measured by number of office visits for flairs/ x-rays, follow up every 3-6 months documented as of this encounter Visit Diagnoses Not on filedocumented in this encounter Care Teams Trade Economist Relationship Specialty Start Date End Date Mikayla Aquino MD PCP - General Family Medicine 07/06/20 documented as of this encounter
--- OUTSIDE RECORDS SUMMARY | 2024-06-19 00:20 | XMS_ITS | Encounter Summary ---
Author Organization [facility] Address [facility] [place] [address] Care Team Providers Care Nanny Babysitter Name Role Phone Jennifer Anaya APRN Primary Care Provider [phone] Reason for Visit * Reason Comments Back Pain coccyx pain * Consultation (Routine) - Closed Specialty Diagnoses / Procedures Referred By Contac t Referred To Contact [facility] Diagnoses Spine - Lumbar ddd & djd/ MRI 05/27/19 & XR 02/2019 in [facility] Jacek Jackson MD [address] [place] [address] [facility] [place] [address] Referral ID Status Reason Start Date Expiration Date V isits Requested Visits Authorized [id number] Closed Consult, Test & Treat Connection [facility] 06/03/2019 06/02/2020 1 1 Encounter Details Date Type Department Care Team (Late st Contact Info) Description 06/26/2019 1:00 PM EDT Office Visit [place] [address] Sergo Hinojosa PA [facility] [place] [address] Coccydynia; Chronic bilateral low back pain without sciatica Social History Tobacco Use Types Packs/Day Years Used Date Smoking Tobacco: Former Cigarettes Smokeless Tobacco: Never Comments:8 years ago Sex and Gender Information Value Date Recorded Sex Assigned at Not on file Gender Identity Not on file Sexual Orientation Not on file documented as of this encounter Last Filed Vital Signs Vital Sign Reading Time Taken Comments Blood Pressure 138/60 06/26/2019 1:07 PM EDT Pulse 61 06/26/2019 1:07 PM EDT Temperature - - Respiratory Rate - - Oxygen Saturation - - Inhaled Oxygen Concentration - - Weight 68 kg (150 lb) 06/26/2019 1:07 PM EDT Height 157.5 cm (5' 2) 06/26/2019 1:07 PM EDT Body Mass Index 27.44 06/26/2019 1:07 PM EDT documented in this encounter Progress Notes * Sergo Hinojosa PA - 06/26/2019 1:00 PM EDT Crystal Felder is a 54-year-old female I am seen today for chief complaint of over a year of chronic low back pain. Most of her back pain is pain over the low coccygeal region and somewhat over the bilateral lumbosacral areas. The pain is most noticeable for her when she is getting up from a seatedor standing position and when changing positions. She does find that it improves with a tripod posit ion. She denies much radiation of pain numbness or weakness on either of her lower extremities. Shedoes have chronic history of rheumatoid arthritis managed on methotrexate and Humira injections andalso has a history of fibromyalgia. She has actually been seen by one my colleagues Rossy Lam APRN, who saw her in March 2019. Evenat the time consisted of a donut cushion, physical therapy and ultimately Ms. Felder actually still does home physical therapy exercises from March 2019 until more recently May 2019. Objective: On her exam today, this is a pleasant overweight 54-year-old female. She has exquisite tenderness over the low coccyx region but not much tenderness over the sacral iliac joints and otherwise mild tenderness over the low lumbar joints. She has increasing pain with extension especially while seated but is perfectly comfortable at forward flexion in sitting while flexed. She does not have any motorweakness or sensory deficit mental testing. Her reflexes are brisk +3 both knees and both ankles. Her peripheral pulses are palpable. Imaging: I went over her lumbar spine MRI performed in 2019. This shows normal alignment without scoliosis or spondylolisthesis. Disc Hts. and Vertebral Body Hts. are well-maintained throughout. Lower lumbar facet degeneration is fairly mild and appropriate for age. No evidence for herniated disc or spinal stenosis at any level. Assessment/plan: Crystal Felder is a 54-year-old female I am seen today for chief complaint of coccygeal pain and toa lesser extent some degree of bilateral low back pain. Overall pain pattern does appear to be consistent with coccydynia. I did advise her the second potential pain generator is at the lower lumbar facet joints given pain reproduction with facet loading maneuvers. Otherwise advised Ms. Felder but is not really have any herniated disc or spinal stenosis or anything that would be responsive to potential spine surgery. Moving forward, she was agreeable to trial of the ganglion impar block. Certainly lead to lumbar facet injections certainly lumbar medial branch blocks can be done if she still remains with her bilateral low back pain following the injection over her coccyx. documented in this encounter Plan of Treatment Upcoming Encounters Date Type Department Care Team (Late st Contact Info) Description 07/21/2024 1:00 PM EDT Office [place] [address] Isaiah Mcpherson MD [facility] [place] [address] Scheduled Orders Name Type Priority Associated Diagnoses Orde r Schedule NERVE BLOCK, OTHER PERIPHERAL NERVE OR BRANCH Procedures Routine Coccydynia Ordered: 06/26/2019 documented as of this encounter Visit Diagnoses Diagnosis Coccydynia Other disorder of coccyx Chronic bilateral low back pain without sciatica documented in this encounter Care Teams Nanny Babysitter Relationship Specialty Start Date End Date [place] [address] [place] [address] PCP - General Family Medicine 06/03/19 07/05/20 documented as of this encounter
--- OUTSIDE RECORDS SUMMARY | 2024-06-19 00:20 | XMS_ITS | Encounter Summary ---
Author [facility] [place] [address] Care Team Providers Care Stage Manager Name Role Phone Jennifer Anaya Erlinda HINOJOSA Primary Care Provider [phone] Reason for Visit * Reason Comments Medication Management Encounter Details Date Type Department Care Team (Late st Contact Info) Description 10/12/2019 Specialty Pharmacy [place] [phone] George Harrington [facility] Social History Tobacco Use Types Packs/Day Years Used Date Smoking Tobacco: Former Cigarettes Smokeless Tobacco: Never Comments:8 years ago Sex and Gender Information Value Date Recorded Sex Assigned at Not on file Gender Identity Not on file Sexual Orientation Not on file documented as of this encounter Progress Notes * George Harrington RPH - 10/12/2019 1:15 PM EST Clinical Management Plan: Refill Specialty Pharmacy Consultation; George Harrington [facility] Comprehensive Medication Management (CMM) Crystal Felder Ms. Crystal Felder is a 54 y.o. (1965) female who was contacted in [...] change made to the Care Plan: no Assessment and Recommendations: Title Cognitive Ability: good Cognitive Impairment Status Verified this Year: no Allergies and Drug intolerance: No Known Allergies Medication Reconciliation Discrepancies (compared to [facility] med list) - none New medications: no New medical conditions: no New allergies: no Adherence: Medication Adherence Patient reported X missed doses in the last month: 0 Any gaps in refill history greater than [...] were made at the appointment and that [facility] is providing recommendations (summary located at top of note) for provider review and follow up. George Harrington RPH 10/12/19 1:16 PM documented in this encounter Plan of Treatment Upcoming Encounters Date Type Department Care Team (Late st Contact Info) Description 07/21/2024 1:00 PM EDT Office Visit [place] [address] Isaiah Mcpherson MD [facility] [place] [address] documented as of this encounter Visit Diagnoses Not on filedocumented in this encounter Care Teams Stage Manager Relationship Specialty Start Date End Date Jennifer Anaya APRN [facility] [place] [address] PCP - General Family Medicine 06/03/19 07/05/20 documented as of this encounter
--- OUTSIDE RECORDS SUMMARY | 2024-06-19 00:20 | XMS_ITS | Encounter Summary ---
Author Organization [facility] [place] [address] Care Team Providers Care Senior Materials Planner Name Role Phone Mikayla Aquino MD Primary Care Provider [phone] Reason for Visit * Reason Comments Medication Management Encounter Details Date Type Department Care Team (Late st Contact Info) Description 07/29/2020 Specialty [place] [phone] George Harrington [facility] Social History Tobacco Use Types Packs/Day Years Used Date Smoking Tobacco: Former Cigarettes Smokeless Tobacco: Never Comments:8 years ago Sex and Gender Information Value Date Recorded Sex Assigned at Not on file Gender Identity Not on file Sexual Orientation Not on file documented as of this encounter Progress Notes * George Harrington RPH - 07/29/2020 12:14 PM EDT Clinical Management Plan: Refill Specialty Pharmacy Consultation; George Harrington [facility] Comprehensive Medication Management (CMM) Crystal Felder MsPaulino Felder is a 55 y.o. (1965) female who was contacted in regard to a specialty medication refill reminder. Spoke with patient regarding Humira. A review of the medication therapy was performed. The medication was Refilled as scheduled on 07/18/20, and all medication related questions and concerns were addressed. The specialty pharmacy staff will follow up with the patient 5-7 days prior to next refill. Was a change made to the Care Plan: no Assessment and Recommendations: Title Type of Medication Management: chronic disease management, targeted medication review Referred By: provider Recipient: beneficiary Provider: plan sponsor pharmacist Method of Contact: by telephone Cognitive Ability: good Cognitive Impairment Status Verified this Year: no Allergies and Drug intolerance: No Known Allergies Medication Reconciliation Discrepancies (compared to [facility] med list) - nonen New medications: yes - meloxicam New medical conditions: no New allergies: no [...] at the appointment and that [facility] is providing recommendations (summary located at top of note) for provider review and follow up. George Harrington RPH 07/29/20 12:15 PM documented in this encounter Plan of Treatment Upcoming Encounters Date Type Department Care Team (Late st Contact Info) Description 07/21/2024 1:00 PM EDT Office [place] [address] Isaiah Mcpherson MD [facility] [place] [address] documented as of this encounter Goals Goal Patient Goal Type Associated Problems Recent Progress Patient-Stated? Author [facility] Medication Compliance and Understanding Patient Facing Action Plan Not on track( 024 11:36 AM EDT) No Mckinley Noel [facility] Note: Reduce Joint damage and flairs, measured by number of office visits for flairs/ x-rays, follow up every 3-6 months documented as of this encounter Visit Diagnoses Not on filedocumented in this encounter Care Teams Senior Materials Planner Relationship Specialty Start Date End Date Mikayla Aquino MD PCP - General Family Medicine 07/06/20 documented as of this encounter
--- OUTSIDE RECORDS SUMMARY | 2024-06-19 00:20 | XMS_ITS | Encounter Summary ---
Author Organization [facility] [place] [address] Care Team Providers Care Detail Manager Name Role Phone Mikayla Aquino MD Primary Care Provider Reason for Visit * Reason Comments Medication Management Encounter Details Date Type Department Care Team (Late st Contact Info) Description 09/12/2020 Specialty [place] [phone] George Harrington [facility] Social History Tobacco Use Types Packs/Day Years Used Date Smoking Tobacco: Former Cigarettes Smokeless Tobacco: Never Comments:8 years ago Sex and Gender Information Value Date Recorded Sex Assigned at Not on file Gender Identity Not on file Sexual Orientation Not on file documented as of this encounter Progress Notes * George Harrington RPH - 09/12/2020 3:58 PM EST Clinical Management Plan: Refill Specialty Pharmacy Consultation; George Harrington Bernice Comprehensive Medication Management (CMM) Crystalantonio Felder MsPaulino Felder is a 55 y.o. [...] provider Recipient: beneficiary Provider: plan sponsor pharmacist Cognitive Ability: good Cognitive Impairment Status Verified this Year: no Allergies and Drug intolerance: No Known Allergies Medication Reconciliation Discrepancies (compared to [facility] med list) - none New medications: no New medical conditions: no New allergies: no Adherence: Medication Adherence Patient reported X missed doses in the last month: 0 Any gaps in refill history greater than 2 weeks in the last 3 months: no Demonstrates understanding of importance of adherence: yes Informant: patient Provider-estimated medication adherence level: 90-100% Reasons for [...] were made at the appointment and that [facility] is providing recommendations (summary located at top of note) for provider review and follow up. George Harrington RPH 09/12/20 3:59 PM documented in this encounter Plan of Treatment Upcoming Encounters Date Type Department Care Team (Late st Contact Info) Description 07/21/2024 1:00 PM EDT Office [place] [address] Isaiah Mcpherson MD [facility] [place] [address] documented as of this encounter Goals Goal Patient Goal Type Associated Problems Recent Progress Patient-Stated? Author [facility] Medication Compliance and Understanding Patient Facing Action Plan Not on track( 024 11:36 AM EDT) No Mckinley Noel [facility] Note: Reduce Joint damage and flairs, measured by number of office visits for flairs/ x-rays, follow up every 3-6 months documented as of this encounter Visit Diagnoses Not on filedocumented in this encounter Care Teams Detail Manager Relationship Specialty Start Date End Date Mikayla Aquino MD PCP - General Family Medicine 07/06/20 documented as of this encounter
--- OUTSIDE RECORDS SUMMARY | 2024-06-19 00:20 | XMS_ITS | Encounter Summary ---
Author Organization [facility] [place] [address] Care Team Providers Care Web Operations Specialist Name Role Phone Jennifer Anaya Erlinda HINOJOSA Primary Care Provider [phone]- [phone] Reason for Visit * Reason Onset Date Comments Follow-up 04/26/2020 [employer] message Encounter Details Date Type Department Care Team (Late st Contact Info) Description 04/26/2020 [place] [id number] Chon Barraza RN Follow-up ([employer] message) Social History Tobacco Use Types Packs/Day Years Used Date Smoking Tobacco: Former Cigarettes Smokeless Tobacco: Never Comments:8 years ago Sex and Gender Information Value Date Recorded Sex Assigned at Not on file Gender Identity Not on file Sexual Orientation Not on file documented as of this encounter Miscellaneous Notes * Telephone Encounter - Chon Barraza RN - 04/28/2020 12:56 PM EDT No RTC will close encounter. * Telephone Encounter - Chon Barraza RN - 04/26/2020 3:12 PM EDT From Chon Barraza RN To Crystal Felder Sent 04/12/2020 ??8:52 AM Dear Crystal, ?We received a request for Methotrexate to fill today and noticed that you have not had labs done in over a year. Where can we send labs for you to have done? Thank You, Mauna, RN Crystal did not respond to [facility] message Called today and LM for her to RTC to nurse. documented in this encounter Plan of Treatment Upcoming Encounters Date Type Department Care Team (Late st Contact Info) Description 07/21/2024 1:00 PM EDT Office Visit Rheumatology at [facility] [place] [address] Isaiah Mcpherson MD [facility] [place] [address] documented as of this encounter Goals Goal Patient Goal Type Associated Problems Recent Progress Patient-Stated? Author [facility] Medication Compliance and Understanding Patient Facing Action Plan Not on track( 024 11:36 AM EDT) No Mckinley Noel, [facility] Note: Reduce Joint damage and flairs, measured by number of office visits for flairs/ x-rays, follow up every 3-6 months documented as of this encounter Visit Diagnoses Not on filedocumented in this encounter Care Teams Web Operations Specialist Relationship Specialty Start Date [place] [address] PCP - General Family Medicine 06/03/19 07/05/20 documented as of this encounter
--- OUTSIDE RECORDS SUMMARY | 2024-06-19 00:20 | XMS_ITS | Encounter Summary ---
Author Organization [facility] [place] [address] Care Team Providers Care Parks Recreation Coordinator Name Role Phone Anaya Jennifer Coffey APRN Primary Care Provider [phone]- [phone] Reason for Visit * Auth/Cert Specialty Diagnoses / Procedures Referred By Chris t Referred To Contact Diagnoses Request coccygeal nerve block for coccydynia. Procedures PRO INJECT NERV BLCK, OTHR PERIPH NERV NERVE BLOCK, OTHER PERIPHERAL NERVE OR BRANCH (WRVU 0.75) Referral ID Status Reason Start Date Expiration Date Visits Re quested Visits Authorized [id number] 1 1 Encounter Details Date Type Department Care Team (Latest Contact Info) Description 06/30/2019 2:31 PM EDT - 06/30/2019 3:28 PM EDT Hospital [place] [address] [facility] [address] Coccydynia (Primary Dx) Discharge Disposition: Home Social History Tobacco Use Types Packs/Day Years Used Date Smoking Tobacco: Former Cigarettes Smokeless Tobacco: Never Comments:8 years ago Sex and Gender Information Value Date Recorded Sex Assigned at Not on file Gender Identity Not on file Sexual Orientation Not on file documented as of this encounter Last Filed Vital Signs Vital Sign Reading Time Taken Comments Blood Pressure 136/106 06/30/2019 3:10 PM EDT Pulse - - Temperature - - Respiratory Rate 20 06/30/2019 3:10 PM EDT Oxygen Saturation 98% 06/30/2019 3:10 PM EDT Inhaled Oxygen Concentration - - Weight 68 kg (150 lb) 06/30/2019 2:50 PM EDT Height 157.5 cm (5' 2.01) 06/30/2019 2:50 PM ED T Body Mass Index 27.43 06/30/2019 2:50 PM EDT documented in this encounter Discharge Instructions * Discharge Instructions* Francisca Dean RN - 06/30/2019 3:25 PM EDT Pain [facility] Discharge Instructions: You were seen today by Surgeon(s): Mali Banda DO The following was performed: Procedure(s) (LRB): NERVE BLOCK, OTHER PERIPHERAL NERVE OR BRANCH (WRVU 0.75) (N/A) It is normal that the injection site will be sore for up to 48 hours. [x] You may also experience mild stiffness in the joint near the injection site. You may resume your normal activities: tomorrow. You may shower today. DO NOT tub bathe, use whirlpools, hot tubs or pool therapy for 2 days. RemoveBand-Aid(s) later today/tomorrow. Do not drive until tomorrow. Use caution walking/climbing stairs as you may be unsteady on your feet. You may use your usual medications, including pain medications, as directed, unless otherwise instructed. You may use an ice pack as needed for the first 24 hours, on for 20 minutes then off for 20 minutes. Do not apply heat today. Attempt to empty your bladder 4-6 hours after your procedure. You received the following medications: Medications Given During Procedure Date/Time Order Dose Route Action 06/30/2019 1524 BUpivacaine (PF) (MARCAINE) 0.5 % (5 mg/mL) injection 9 mL Intra-articular Given 06/30/2019 1521 dexamethasone(PF) (DECADRON) 10 mg/mL injection 10 mg Intra- articular Given 06/30/2019 1519 iohexol (OMNIPAQUE) 240 mg/mL solution 1 mL Intra-articular Given During regular business hours, please phone the Pain Management Center at with any questions or if the following or other troubling symptoms develop: 1) Prolonged dizziness or weakness (more than 1 day). 2) Localized swelling, redness or drainage at the injection site(s). 3) Temperature of 101 degrees that lasts for more than 4 hours. After 5 PM or on weekends, call and ask for Pain Clinic provider on-call. If you are unable to reach the Pain Management Center and have a complication, please call your Primary Care Provider or proceed to your local emergency department. Francisca Dean RN Special instructions documented in this encounter Medications at Time of Discharge Medication Sig Dispensed Refills Start Date End Date Adalimumab (HUMIRA PEN) 40 mg/0.8 mL Pen Injector Kit Inject 0.8 mLs subcutaneously every 14 days. 1 kit 5 05/18/2019 11/20/2019 folic acid (FOLVITE) 1 mg Tablet TAKE ONE TABLET BY MOUTH EVERY DAY 90 tablet 3 04/13/2019 08/20/2020 metHOTREXate 2.5 mg Tablet TAKE 8 TABLETS BY MOUTH ONCE WEEKLY, CAN TAKE WITHOUT REGARD TO FOOD CALL CLINIC BEFORE STARTING MEDICATION 104 tablet 3 08/18/2018 04/12/2020 citalopram (CELEXA) 20 mg Tablet daily. 2 01/03/2017 04/24/2022 documented as of this encounter H&P Notes * Isaiah Braxton MD - 06/30/2019 2:58 PM EDT Patient Name: Crystal Felder Patient Age: 54 y.o. Birthdate: 1965 Admit date: 06/30/2019 Attending Physician: Mali Sierra DO PREPROCEDURE HISTORY AND PHYSICAL Date of Visit: June 30, 2019 Chief Complaint: Tailbone pain HPI: Subjective Crytsal Felder is a 54 y.o. female who presents today for ganglion impar block. The history is obtained from the patient, and I have reviewed medical records provided by the referring physician and located in the electronic medical record to fill in gaps in the patient's recollection of events, treatments and outcomes. LOCATION: Across coccyx. PAIN LEVEL AT REST 6 PAST MEDICAL HISTORY: No past medical history on file. PAST SURGICAL HISTORY: No past surgical history on file. ALLERGIES: Patient has no known allergies. MEDICATIONS: No current facility-administered medications on file prior to encounter. Current Outpatient Medications on File Prior to Encounter Medication Sig Dispense Refill ??? Adalimumab (HUMIRA PEN) 40 mg/0.8 mL Pen Injector Kit Inject 0.8 mLs subcutaneously every 14 days. 1 kit 5 ??? folic acid (FOLVITE) 1 mg Tablet TAKE ONE TABLET BY MOUTH EVERY DAY 90 tablet 3 ??? metHOTREXate 2.5 mg Tablet TAKE 8 TABLETS BY MOUTH ONCE WEEKLY, CAN TAKE WITHOUT REGARD TO FOODCALL CLINIC BEFORE STARTING MEDICATION 104 tablet 3 ??? citalopram (CELEXA) 20 mg Tablet daily. 2 FAMILY HISTORY: No family history on file. SOCIAL HISTORY: Social History Socioeconomic History ??? Marital status: Spouse name: Not on file ??? Number of children: Not on file ??? Years of education: Not on file ??? Highest education level: Not on file Occupational History ??? Not on file Social Needs ??? Financial resource strain: Not on file ??? Food insecurity: Worry: Not on file Inability: Not on file ??? Transportation needs: Medical: Not on file Non-medical: Not on file Tobacco Use ??? Smoking status: Former Smoker Packs/day: 1.00 Types: Cigarettes ??? Smokeless tobacco: Never Used ??? Tobacco comment: 8 years ago Substance and Sexual Activity ??? Alcohol use: Not on file ??? Drug use: Not on file ??? Sexual activity: Not on file Lifestyle ??? Physical activity: Days per week: Not on file Minutes per session: Not on file ??? Stress: Not on file Relationships ??? Social connections: Talks on phone: Not on file Gets together: Not on file Attends mu-ism service: Not on file Active member of club or organization: Not on file Attends meetings of clubs or organizations: Not on file Relationship status: Not on file ??? Intimate partner violence: Fear of current or ex partner: Not on file Emotionally abused: Not on file Physically abused: Not on file Forced sexual activity: Not on file Other Topics Concern ??? Not on file Social History Narrative ??? Not on file ROS: Review of Systems Constitutional: Negative for chills and fever. Musculoskeletal: Positive for back pain. +coccyx pain PHYSICAL EXAM: There were no vitals taken for this visit. Physical Exam Constitutional: Oriented to person, place, and time. Appears well-developed and well-nourished. No distress. HENT: Head: Normocephalic and atraumatic. Eyes: EOM are normal. Pulmonary/Chest: Effort normal. No respiratory distress. Neurological: Alert and oriented to person, place, and time. Skin: Skin is warm and dry. Psychiatric: Normal mood and affect. RADIOLOGIC DATA: X-ray reviewed LABS/DX RESULTS: Last wbc, hgb, hct plt No results for input(s): WBC, HGB, HCT in the last 72 hours. Invalid input(s): PLT ASSESSMENT: Assessment 1. Coccydynia PLAN: 1. Coccydynia Will proceed with ganglion impar block as planned documented in this encounter Miscellaneous Notes * Op Note - Mali Banda DO - 06/30/2019 3:04 PM EDT Pain Management Operative Note Patient Name: Crystal Felder : [id number] MR#: [id number] Case Date: 06/30/2019 Surgeon: Surgeon(s) and Role: * Mali Banda DO - Primary Present on Admission: ??? Coccydynia Procedure(s) (LRB): NERVE BLOCK, OTHER PERIPHERAL NERVE OR BRANCH (WRVU 0.75) (N/A) GANGLION IMPAR BLOCK PROCEDURE NOTE Ms. Crystal Felder has been referred to the procedure suite of the Pain Management Center for a fluoroscopically-guided Ganglion Impar Block. Please note that Ganglion impar block appears to be effective in patients who have coccygodynia resistant to conservative therapy, with high success rates and prolonged duration of effect. Wendi DAVIES, Nasrin S, Kay O; Pain Relief due to Transsacrococcygeal Ganglion Impar Block in Chronic Coccygodynia: A Insulation Worker Study. Pain Med. 2015 Apr;16(7):1278-81. doi: 10.1111/pme.84719. Epub 2014. Ms. Felder was greeted by the nurse who verified patients name and . Patient was then taken to the fluoroscopy suite. Ms. Felder was interviewed and the medical record were reviewed. There were no medical, pharmacologic, radiographic, or other structural contraindications to attempting fluoroscopically guided ganglion impar block. Risks, potential side effects, and potential benefits of the procedure were reviewed with Mrs. Felder and her voiced concerns were addressed. After the patient was fully imformed about the procedure, the patient signed the consent form. Standard time-out procedure was performed. Ms. Felder was placed in the prone position on the fluoroscopy table and automated blood pressure cuff and pulse oximeter was applied. The skin entry point for entering/approaching the sacrococcygeal junction was marked. The skin entry point for the procedure was thoroughly cleaned twice with a chlorhexadine preparation. The skin was draped with sterile sheets. The insertion site was then infiltrated with 9cc 1% lidocaine. Once the complete skin anesthesia was confirmed, a 25G 1.5 inch needle was advanced under fluoroscopic guidance through the sacrococcygeal junction in a midline approach. Numerous AP and lateral fluoroscopic images were taken to assure proper location of the needle. The needle tip was visualized with fluoroscopy to be just anterior to the sacrococcygeal junction and far away from bowel. Gentle aspiration noted no blood or any other fluid. Very little resistance was then noted with infiltration with 240 contrast. Appropriate contrast flow was fluoroscopically visualized with 2 cc contrast ascending superiorly on the anterior surface of the sacrum. No blood vessel patterns were visualized on fluoroscopy. I then injected 1cc of Dexamethasone (10 mg/cc) Followed by 9cc of 0.25% Bupivicaine. The needle was then removed without difficulty and pressure was applied tothe skin entry point. Bandages were placed. Throughout the procedure, there were not any unusual discomforts expressed by Mrs. Felder. (48 cc of Omnipaque was wasted) Ms. Felder's vital signs were stable throughout the procedure and were as recorded in nursing records. Follow up plans and appointments were discussed with Ms. Felder. Post procedure instruction was given as documented in nursing records and having met discharge criteria he was discharged from the [facility]. COMMENTS: No complications. Isaiah Braxton MD I was the attending physician supervising the resident in the above care and I was present with theresident for the entire procedure. MALI BANDA DO, MPH Skidder Operator of Anesthesiology/[employer] [facility] [employer] [facility] Alcohol Rubber, Pain Medicine Fellowship Psychologist Chief, Functional Religion Program ABPM&R - Subspecialty board certification in Pain Medicine CC: KODI Figueredo [facility] [place] [address] [place] [address] documented in this encounter Plan of Treatment Upcoming Encounters Date Type Department Care Team (Late st Contact Info) Description 07/21/2024 1:00 PM EDT Office Visit Rheumatology at [facility] [place] [address] Isaiah Mcpherson MD [facility] RHEUMATOLOGY [address] documented as of this encounter Visit Diagnoses Diagnosis Coccydynia- Primary Other disorder of coccyx Coccydynia Other disorder of coccyx documented in this encounter Active and Recently Administered Medications Times are shown in EDT. PRN Medication Order 06/28/2019 06/29/2019 06/30/2019 BUpivacaine (PF) (MARCAINE) 0.5 % (5 mg/mL) injection (CANCELED) ONCE PRN, Starting on 06/30/19 at 1524, Until 06/30/19 at 1728, Intra-Operative (Intra-Procedure), Routine 1524 (Given - Provid er: Mali Sierra DO) dexamethasone(PF) (DECADRON) 10 mg/mL injection (CANCELED) ONCE PRN, Starting on 06/30/19 at 1521, Until 06/30/19 at 1728, Intra-Operative (Intra-Procedure), Routine 1521 (Given - Provid er: Mali Sierra DO) iohexol (OMNIPAQUE) 240 mg/mL solution (CANCELED) ONCE PRN, Starting on 06/30/19 at 1519, Until 06/30/19 at 1728, Intra-Operative (Intra-Procedure), Routine 1519 (Given - Provid er: Mali Sierra DO) documented in this encounter Care Teams Parks Recreation Coordinator Relationship Specialty Start Date End Date [place] [address] [place] [address] PCP - General Family Medicine 06/03/19 07/05/20 documented as of this encounter
--- OUTSIDE RECORDS SUMMARY | 2024-06-19 00:20 | XMS_ITS | Encounter Summary ---
Author Organization [facility] [place] [address] Care Team Providers Care Medication Coordinator Name Role Phone Jennifer Anaya Erlinda HINOJOSA Primary Care Provider [phone]- [phone] Reason for Visit * Reason Comments Medication Management Encounter Details Date Type Department Care Team (Late st Contact Info) Description 06/16/2019 Specialty [place] [id number] George Harrington RPH Social History Tobacco Use Types Packs/Day Years Used Date Smoking Tobacco: Former Cigarettes Smokeless Tobacco: Never Comments:8 years ago Sex and Gender Information Value Date Recorded Sex Assigned at Not on file Gender Identity Not on file Sexual Orientation Not on file documented as of this encounter Progress Notes * George Harrington RPH - 06/16/2019 8:36 AM EDT Clinical Management Plan: Refill Specialty Pharmacy Consultation; George Harrington RPH Comprehensive Medication Management (CMM) Crystal Felder Ms. Crystal Felder is a 54 y.o. (1965) female who refilled their specialty medication, Humira, without speaking to a access services representative from the Specialty Pharmacy. The medication was refilled on 06/15/19 for a 28 day supply for a $3.00 copay. Adherence: Gaps in fill history: none Was a change made to the Care Plan: no The specialty pharmacy staff will follow up with the patient 5-7 days prior to next refill for reminder if needed. George Harrington RPH 06/16/19 8:36 AM documented in this encounter Plan of Treatment Upcoming Encounters Date Type Department Care Team (Late st Contact Info) Description 07/21/2024 1:00 PM EDT Office [place] [address] Isaiah Mcpherson MD [facility] [place] [address] documented as of this encounter Visit Diagnoses Not on filedocumented in this encounter Care Teams Medication Coordinator Relationship Specialty Start Date End Date Jennifer Anaya APRN [facility] [place] [address] PCP - General Family Medicine 06/03/19 07/05/20 documented as of this encounter
--- OUTSIDE RECORDS SUMMARY | 2024-06-19 00:20 | XMS_ITS | Encounter Summary ---
Author Organization [facility] [place] [address] Care Team Providers Care Public Relations Intern Name Role Phone Ping Garcia APRN Primary Care Provider [phone] Encounter Details Date Type Department Care Team (Late st Contact Info) Description 05/18/2019 [place] [address] Isaiah Mcpherson MD [facility] [place] [address] Social History Tobacco Use Types Packs/Day Years [...] 1:00 PM EDT [place] [address] Isaiah Mcpherson MD [facility] [place] [address] documented as of this encounter Visit Diagnoses Not on filedocumented in this encounter Care Teams Public Relations Intern Relationship Specialty Start Date End Date Ping Garcia APRN [address] [place] [address] PCP - General Family Medicine 01/04/17 06/02/19 documented as of this encounter
--- OUTSIDE RECORDS SUMMARY | 2024-06-19 00:20 | XMS_ITS | Encounter Summary ---
Author Organization [facility] [place] [address] Care Team Providers Care Outreach Educator Name Role Phone Mikayla Aquino MD Primary Care Provider [phone] Reason for Visit * Reason Comments Specialty Pharmacy Review Encounter Details Date Type Department Care Team (Late st Contact Info) Description 07/06/2020 Specialty [place] [address] Jake Ulrich Social History Tobacco Use Types Packs/Day Years Used Date Smoking Tobacco: Former Cigarettes Smokeless Tobacco: Never Comments:8 years ago Sex and Gender Information Value Date Recorded Sex Assigned at Not on file Gender Identity Not on file Sexual Orientation Not on file documented as of this encounter Progress Notes * Jake Ulrich - 07/06/2020 11:59 PM EDT [facility] has completed a benefits investigation for Crystal Felder to review their eligibility to fill at [facility]. Per patient's medication list they are prescribed Humira which is currently filled at the [facility]. documented in this encounter Plan of Treatment Upcoming Encounters Date Type Department Care Team (Late st Contact Info) Description 07/21/2024 1:00 PM EDT Office [place] [address] Isaiah Mcpherson MD [facility] [place] [address] documented as of this encounter Goals Goal [...] filedocumented in this encounter Care Teams Outreach Educator Relationship Specialty Start Date End Date Mikayla Aquino MD PCP - General Family Medicine 07/06/20 documented as of this encounter
--- OUTSIDE RECORDS SUMMARY | 2024-06-19 00:20 | XMS_ITS | Encounter Summary ---
Author Organization [facility] [place] [address] Care Team Providers Care Senior Research Analyst Name Role Phone Héctor Jennifer Coffey APRN Primary Care Provider [phone] Reason for Visit * Auth/Cert Specialty Diagnoses / Procedures Referred By Chris t Referred To Contact Diagnoses Request coccygeal nerve block for coccydynia. Procedures PRO INJECT NERV BLCK, OTHR PERIPH NERV NERVE BLOCK, OTHER PERIPHERAL NERVE OR BRANCH (WRVU 0.75) Referral ID Status Reason Start Date Expiration Date Visits Re quested Visits Authorized [id number] 1 1 Encounter Details Date Type Department Care Team (Late st Contact Info) Description 06/30/2019 3:00 PM EDT - 06/30/2019 3:30 PM EDT [place] [address] [facility] Banda [facility] [place] [address] NERVE BLOCK, OTHER PERIPHERAL NERVE OR BRANCH (WRVU 0.75) Social History Tobacco Use Types Packs/Day Years [...] 2019 Chief Complaint: Tailbone pain HPI: Subjective Crystal Felder is a 54 y.o. female who [...] file Gets together: Not on file Attends baptism service: Not on file Active member of [...] Operative Note Patient Name: Crystal Felder : [id number] MR#: [id number] Case Date: 06/30/2019 Surgeon: Surgeon(s) and Role: [...] Ganglion Impar Block in Chronic Coccygodynia: A Asphalt Paving Supervisor Study. Pain Med. 2015 Apr;16(7):1278-81. doi: [email or web address]/pme.24925. Epub 2014. Ms. Felder was greeted by [...] [facility] COMMENTS: No complications. Isaiah Braxton MD I was the attending physician supervising the resident in the above care and I was present with theresident for the entire procedure. MALI BANDA DO, MPH [employer] Front Desk Clerk of Anesthesiology/[facility] [employer] [facility] Caisson Worker, Pain Medicine Fellowship Cyber Security Administrator, Functional Scientologist Program ABPM&R - Subspecialty board certification in Pain Medicine CC: KODI Figueredo [facility] [place] [address] [place] [address] documented in this encounter Plan of Treatment Upcoming Encounters Date Type Department Care Team (Late st Contact Info) Description 07/21/2024 1:00 PM EDT Office Visit Rheumatology at [facility] [place] [address] Isaiah Mcpherson MD [facility] [place] [address] documented as of this encounter Visit Diagnoses Diagnosis Coccydynia- Primary Other disorder of coccyx Coccydynia Other disorder of coccyx Coccydynia Other disorder of coccyx documented in this encounter Administered Medications Inactive Administered Medications - up to 3 most recent administrations Medication Order MAR Action Action Date Dose Rate Site BUpivacaine (PF) (MARCAINE) 0.5 % (5 mg/mL) injection ONCE PRN, Starting on Sat06/30/19 at 1524, Until Sat06/30/19 at 1728, Intra-Operative (Intra-Procedure), Routine Given 06/30/2019 3:24 PM EDT 9 mLs dexamethasone(PF) (DECADRON) 10 mg/mL injection ONCE PRN, Starting on e 06/30/19 at 1521, Until Tu06/30/19 at 1728, Intra-Operative (Intra-Procedure), Routine Given 06/30/2019 3:21 PM EDT 10 mg iohexol (OMNIPAQUE) 240 mg/mL solution ONCE PRN, Starting on e 06/30/19 at 1519, Until Tu06/30/19 at 1728, Intra-Operative (Intra-Procedure), Routine Given 06/30/2019 3:19 PM EDT 1 mL documented in this encounter Active and Recently Administered Medications Times are shown in EDT. PRN Medication Order 06/28/2019 06/29/2019 06/30/2019 BUpivacaine (PF) (MARCAINE) 0.5 % (5 mg/mL) injection (CANCELED) ONCE PRN, Starting on Sat06/30/19 at 1524, Until Sat06/30/19 at 1728, Intra-Operative (Intra-Procedure), Routine 1524 (Given - Provid er: Mali Banda V, DO) dexamethasone(PF) (DECADRON) 10 mg/mL injection (CANCELED) ONCE PRN, Starting on Sat06/30/19 at 1521, Until Sat06/30/19 at 1728, Intra-Operative (Intra-Procedure), Routine 1521 (Given - Provid er: Mali Banda V, DO) iohexol (OMNIPAQUE) 240 mg/mL solution (CANCELED) ONCE PRN, Starting on Sat06/30/19 at 1519, Until Sat06/30/19 at 1728, Intra-Operative (Intra-Procedure), Routine 1519 (Given - Provid er: Mali Banda V, ) documented in this encounter Care Teams Senior Research Analyst Relationship Specialty Start Date End [place] [address] PCP - General Family Medicine 06/03/19 07/05/20 documented as of this encounter
--- OUTSIDE RECORDS SUMMARY | 2024-06-19 00:20 | XMS_ITS | Encounter Summary ---
Author Organization [facility] [place] [address] Care Team Providers Care Director Of Sales Support Name Role Phone Mikayla Aquino MD Primary Care Provider [phone] Encounter Details Date Type Department Care Team (Late st Contact Info) Description 07/06/2020 2:00 PM EDT Office [place] [id number] Isaiah Mcpherson MD [facility] [place] [address] Rheumatoid arthritis involving multiple sites with positive rheumatoid factor; Acute bilateral ankle pain; Right lateral epicondylitis; High risk medication use; Fatigue, unspecified type; Anemia, unspecified type; Macrocytosis Social History Tobacco Use Types Packs/Day Years Used Date Smoking Tobacco: Former Cigarettes Smokeless Tobacco: Never Comments:8 years ago Sex and Gender Information Value Date Recorded Sex Assigned at Not on file Gender Identity Not on file Sexual Orientation Not on file documented as of this encounter Last Filed Vital Signs Vital Sign Reading Time Taken Comments Blood Pressure 126/65 07/06/2020 2:01 PM EDT Pulse 59 07/06/2020 2:01 PM EDT Temperature 37.1 ??C (98.7 ??F) 07/06/2020 2:01 PM ED T Respiratory Rate - - Oxygen Saturation 99% 07/06/2020 2:01 PM EDT Inhaled Oxygen Concentration - - Weight 71.7 kg (158 lb) 07/06/2020 2:01 PM EDT Height 157.5 cm (5' 2) 07/06/2020 2:01 PM EDT Body Mass Index 28.9 07/06/2020 2:01 PM EDT documented in this encounter Patient Instructions * Patient Instructions* Isaiah Mcpherson MD - 07/06/2020 2:00 PM EDT Images from the original note were not included. Get labs today at 3L. Call or myDH for results if you don't hear from us by next week. Further recommendations based on test results. Continue current regimen. RA doing well. The right elbow is lateral epicondylitis. Get tennis elbow splint and do exercises. I believe ankle is tendinitis. Get ankle support (nylon sleeve). Try prednisone taper for ankle pain. Rx sent in. Please let me know how it goes. Follow up in 6 months. Call if problems or concerns. Patient Education Tennis Elbow: Care Instructions Your Care Instructions Tennis elbow is soreness or pain on the outer part of the elbow. The pain occurs when the tendon isstretched and becomes irritated by repeated twisting of the hand, wrist, and forearm. A tendon is atough tissue that connects muscle to bone. This injury is common in tennis players. But you also can get it from many activities that work the same muscles. Examples include gardening, painting, and using tools. Tennis elbow usually heals with rest and treatment at home. Follow-up care is a dean part of your treatment and safety. Be sure to make and go to all appointments, and call your doctor if you are having problems. It's also a good idea to know your test resultsand keep a list of the medicines you take. How can you care for yourself at home? Rest your fingers, wrist, and forearm. Try to stop or reduce any activity that causes elbow pain. You may have to rest your arm for weeks to months. Follow your doctor's directions for how longto rest. ? Put ice or a cold pack on your elbow for 10 to 20 minutes at a time. Try to do this every 1 to 2 hours for the next 3 days (when you are awake) or until the swelling goes down. Put a thin clothbetween the ice and your skin. You can try heat, or alternating heat and ice, after the first 3 days. ? If your doctor gave you a brace or splint, use it as directed. A counterforce brace is a strap around your forearm, just below your elbow. It may ease the pressure on the tendon and spread force throughout your arm. ? Prop up your elbow on pillows to help reduce swelling. ? Follow your doctor's or physical therapist's directions for exercise. ? Return to your usual activities slowly. ? Try to prevent the problem. Learn the best techniques for your sport. For example, make sure the box car bracer on your tennis racquet is not too big for your hand. Try not to hit a tennis ball late in your swing. ? Think about asking your employer about new ways of doing your job if your elbow pain is caused by something you do at work. Medicines ? Be safe with medicines. Read and follow all instructions on the label. ? If the doctor gave you a prescription medicine for pain, take it as prescribed. ? If you are not taking a prescription pain medicine, ask your doctor if you can take an lvxb-soo-hktrjos medicine. When should you call for help? Call your doctor now or seek immediate medical care if: ? Your pain is worse. ? You cannot bend your elbow normally. ? Your arm or hand is cool or pale or changes color. ? You have tingling, weakness, or numbness in your hand and fingers. Watch closely for changes in your health, and be sure to contact your doctor if: ? You have work problems caused by your elbow pain. ? Your pain is not better after 2 weeks. Where can you learn more? Visit our [employer] information library at [email or web address].in/Domino Magazineinfo You can also view health information on [employer], your personal patient account. Log in or sign uptoday. Enter C285 in the search box to learn more about Tennis Elbow: Care Instructions. Current as of: December 28, 2019?Content Version: 12.6 ?? 3758-0288 TRData. Care instructions adapted under license by [facility]. If you have questions about a medical condition or this instruction, always ask your healthcare professional. [employer] disclaims any warranty or liability for your use of this information. Patient Education Tennis Elbow: Exercises Introduction Here are some examples of exercises for you to try. The exercises may be suggested for a condition or for rehabilitation. Start each exercise slowly. Ease off the exercises if you start to have pain. You will be told when to start these exercises and which ones will work best for you. How to do the exercises Wrist flexor stretch 1. Extend your arm in front of you with your palm up. 2. Bend your wrist, pointing your hand toward the floor. 3. With your other hand, gently bend your wrist farther until you feel a mild to moderate stretch in your forearm. 4. Hold for at least 15 to 30 seconds. Repeat 2 to 4 times. Wrist extensor stretch 1. Repeat steps 1 to 4 of the stretch above but begin with your extended hand palm down. Ball or sock squeeze 1. Hold a tennis ball (or a rolled-up sock) in your hand. 2. Make a fist around the ball (or sock) and squeeze. 3. Hold for about 6 seconds, and then relax for up to 10 seconds. 4. Repeat 8 to 12 times. 5. Switch the ball (or sock) to your other hand and do 8 to 12 times. Wrist deviation 1. Sit so that your arm is supported but your hand hangs off the edge of a flat surface, such as a table. 2. Hold your hand out like you are shaking hands with someone. 3. Move your hand up and down. 4. Repeat this motion 8 to 12 times. 5. Switch arms. 6. Try to do this exercise twice with each hand. Wrist curls 1. Place your forearm on a table with your hand hanging over the edge of the table, palm up. 2. Place a 1- to 2-pound weight in your hand. This may be a dumbbell, a can of food, or a filled water bottle. 3. Slowly raise and lower the weight while keeping your forearm on the table and your palm facing up. 4. Repeat this motion 8 to 12 times. 5. Switch arms, and do steps 1 through 4. 6. Repeat with your hand facing down toward the floor. Switch arms. Biceps curls 1. Sit leaning forward with your legs slightly spread and your left hand on your left thigh. 2. Place your right elbow on your right thigh, and hold the weight with your forearm horizontal. 3. Slowly curl the weight up and toward your chest. 4. Repeat this motion 8 to 12 times. 5. Switch arms, and do steps 1 through 4. Follow-up care is a dean part of your treatment and safety. Be sure to make and go to all appointments, and call your doctor if you are having problems. It's also a good idea to know your test resultsand keep a list of the medicines you take. Where can you learn more? Visit our [employer] information library at [email or web address].[email or web address]/Kids Calendaro You can also view health information on [employer], your personal patient account. Log in or sign uptoday. Enter U616 in the search box to learn more about Tennis Elbow: Exercises. Current as of: December 28, 2019?Content Version: 12.6 ?? [id number] [employer]Data. Care instructions adapted under license by [facility]. If you have questions about a medical condition or this instruction, always ask your healthcare professional. [employer] disclaims any warranty or liability for your use of this information. documented in this encounter Progress Notes * Isaiah Mcpherson MD - 07/06/2020 2:00 PM EDT Rheumatology Clinic: Dr. Mcpherson 07/06/2020 [id number] Crystal Edmonds is seen in follow-up of her rheumatoid arthritis and other musculoskeletal pain issues. We have had her rheumatoid arthritis in good control for quite some time now on a combination ofmethotrexate and Humira, although she is not always convinced of that. 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 The last time I saw her, which was back in 02/2019, she had a number of areas that were bothering her. Interestingly, she has a number of areas bothering her today,but they are all different from the ones that were bothering her back then. She did not bring thoseup today. Her main problem areas today are the right elbow, and she points directly to the lateral epicondyles. In fact, her primary team already told her recently they think this is epicondylitis. She is skeptical and wonders if it is somehow related to the rheumatoid. This is a pattern. She is now having similar, but definitely milder symptoms on the left side. In addition, for the last for 5 days or so, she has had significant pain in the area of the medial malleolus, bilaterally and about equally. She says that when she got out of bed this morning, she could hardly walk. She denies swelling in that area, but thinks there may have been some erythema. In addition, she has had some pain atthe Achilles tendon insertion as well, again about equally bilaterally. In terms of typical rheumatoid arthritis areas, they seem quiet. She is tolerating the medications well. 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 For these various pains, in addition to her usual meds, she has been taking some ibuprofen [id number]-[id number], which is helpful. Her other concern was a space of recent infections. Back in August she had some type of respiratory infection that lingered for quite a while, and she was the only one in the family that ended up having it. Then in October, she had an episode of shingles. She went off her RA meds for about a month for that. In December, she had a fever and she was tested for COVID-19 and that was negative. Nothingevolved from that. Just in May, she had a sore throat and had testing again and that was negative. We then talked about her social situation. At her last visit in 02/2019, she was almost desponded about what she perceived as her diminished contribution to the family's workload because of her musculoskeletal pain. She was even talking at the time about applying for disability. She now reports things are a lot better. Part of that is related to switching her schedule. 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 She has also been making fruit compote to put in the yogurt. 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 They are so busy now, they are trying to decide what to do in the long run in terms of possibly hiring people, selling the business, george someone else to actually run the business, etc. But the bottom line this is all because of their unexpected success. An additionalcomplication is that the younger brother has informed the family that he is considering leaving next year. They are all looking forward to the winter where there will be a break in the demand. A lot o f their demand during the recent summer months has been related to farmers markets. In general, during the winter some of them would have gone indoors, such as the one in [place], [place]. However becauseof COVID, that is probably not going to happen this year and their work load will decline significantly this winter. Patient Active Problem List Diagnosis Code ??? [...] pain R07.0, G89.29 ??? Coccydynia M53.3 Medications 07/06/20 1403 Medication Sig Taking? metHOTREXate 2.5 mg Tablet Take 8 tablets by mouth once a week. Yes Adalimumab (Humira Pen) 40 mg/0.8 mL Pen Injector Kit Inject 0.8 mLs subcutaneously every 14 days. Inject the contents of one pen (40 mg) subcutaneously once every 14 days. Yes folic acid (FOLVITE) 1 mg Tablet TAKE ONE TABLET BY MOUTH EVERY DAY Yes citalopram (CELEXA) 20 mg Tablet daily. Yes predniSONE (Deltasone) 5 mg Tablet 6 tabs X 2 days, then 5 tabs x 2 days, then 4 tabs x 2 days, then 3 tabs x 2 days, then 2 tabs x 2 days, then 1 tab x 2 days. Physical Exam: She looks in general well. Although she is concerned about her pain, she does not seem as down as she has been on previous visits. I think that is probably because of her sense of contributing more to the family workload since the change in shift. She is still responsible for doing the bulk of care for her mother, who has a number of medical issues. Blood pressure 126/65, pulse 59, temperature 37.1 ??C (98.7 ??F), temperature source Temporal, height 157.5 cm (5' 2), weight 71.7 kg (158 lb), SpO2 99 %. myD-H RAPID-3 Responses 09/05/2016 03/04/2017 09/11/2017 08/29/2018 03/03/2019 RAPID-3 Function 1 2 2 2.66 3 RAPID-3 Pain 2 5.5 3.5 2.5 4 RADIP-3 Global 1 5 5 2.5 3 RAPID-3 Total Scores 4 (Low) 12.5 (High) 10.5 (Moderate) 7.66 (Moderate) 10 (Moderate) Skin: Clear. HEENT: Unremarkable. Lungs: Clear. Heart: Regular rhythm and rate without murmur, gallop, or rub. Abdomen: Benign. No masses, tenderness, or organomegaly. Extremities: No edema. Good distal pulses. Musculoskeletal: She has absolutely no synovitis in her hands. She has some mild degenerative changes there. Her wrists actually move well today. There is no swelling warmth or pain to direct palpation or on range of motion. Her right elbow has obvious lateral epicondylitis, but she also has clicking right at the radial humeral joint. She was not aware that, but she believes it is related to an old injury to that elbow and she demonstrates how she cannot fully flex it. The left elbow seems fine, although she does have some very minor lateral epicondyles tenderness. Shoulders move well. Her hips move well. Her knees move well with just mild crepitance today. Her ankles actually move very well, but she is tender below the medial malleolus bilaterally, perhaps in the area of the posterior tibialis tendon. But it is also possible this is the collateral ligaments, including the slip ligament. But there is clearly no major periarticular inflammation going on and no joint inflammation whatsoever. Her distal feet show minor DJD without synovitis. She has no inflammation at the Achilles insertion and she was not tender there at the moment. Neuro: Grossly intact. Assessment: We had a very long discussion about her situation. From the rheumatoid arthritis perspective, she is doing well, although she again has a hard time accepting that. She is particularly puzzled by the ankle pain which came on bilaterally simultaneously and that makes it difficult for her to believe this could be tendinitis. Regardless, we will check labs today. We recommended that she lemon picker a tennis elbow splint and do some exercises for the lateral epicondylitis. For her ankles we recommended that she get nylon ankle sleeve supports. But at the end of the day, we decided to 2 give her a prednisone taper at 30 mg a day for 2 days, 25 mg a day for 2 days, etc. to see if we can calm down these areas. I did warn her that it certainly possible that when she finishes the taper, thepain will come back, but she would like to give this a try. We also talked about her using the meloxicam we prescribed in the past instead of the ibuprofen because of its longer half-life. I will see her in follow-up in 6 months, but we will stay in touch over the next couple of weeks aswe try and clarify the situation. We gave the patient the following specific instructions: Patient Instructions Get labs today at 3L. Call or myDH for results if you don't hear from us by next week. Further recommendations based on test results. Continue current regimen. RA doing well. The right elbow is lateral epicondylitis. Get tennis elbow splint and do exercises. I believe ankle is tendinitis. Get ankle support (nylon sleeve). Try prednisone taper for ankle pain. Rx sent in. Please let me know how it goes. Follow up in 6 months. Call if problems or concerns. Over 30 minutes of the 40-minute follow-up, but were spent discussing these problems and their treatment options in uufu-du-hhku counseling. Orders Placed This Encounter Procedures ??? CBC (with Diff) ??? Comprehensive metabolic panel (non-fasting) ??? Sedimentation rate ??? CRP, acute inflammation ??? TSH ??? Vitamin D, 25-Hydroxy ??? Angiotensin Converting Enzyme ??? Hemogram ??? Differential, Automated Visit Diagnoses: 1. Rheumatoid arthritis involving multiple sites with positive rheumatoid factor 2. Acute bilateral ankle pain 3. Right lateral epicondylitis 4. High risk medication use 5. Fatigue, unspecified type Results for CRYSTAL EDMONDS ( ) as of 07/10/2020 08:41 Ref. Range 07/06/2020 15:36 WBC Latest Ref Range: 4.0 - 9.5 x10(3)/mcL 6.1 RBC Latest Ref Range: 4.00 - 5.21 x10(6)/mcL 3.67 (L) Hemoglobin Latest Ref Range: 11.7 - 15.5 gm/dL 12.0 Hematocrit Latest Ref Range: 35.7 - 45.8 % 35.6 (L) MCV Latest Ref Range: 82.6 - 94.4 fL 97.0 (H) MCH Latest Ref Range: 27.1 - 32.0 pg 32.7 (H) MCHC Latest Ref Range: 31.7 - 35.0 gm/dL 33.7 RDWSD Latest Ref Range: 37.0 - 46.0 fL 45.0 RDWCV Latest Ref Range: 11.5 - 14.1 % 12.9 Platelets Latest Ref Range: 145 - 357 x10(3)/mcL 249 MPV Latest Ref Range: 7.6 - 12.9 fL 9.8 nRBC % Auto Latest Units: % 0.0 nRBC Abs Auto Latest Ref Range: 0.000 - 0.000 x10(3)/mcL 0.000 Neutr Abs (ANC) Latest Ref Range: 1.70 - 6.10 x10(3)/mcL 3.13 Neutrophils % Latest Units: % 51.7 Immature Gran % Latest Units: % 0.30 Lymphocytes % Latest Units: % 32.2 Monocytes % Latest Units: % 12.7 Eosinophils % Latest Units: % 2.6 Basophils % Latest Units: % 0.5 Abbie Gran Abs Latest Ref Range: 0.00 - 0.04 x10(3)/mcL 0.02 Lymphocytes Abs Latest Ref Range: 0.9 - 3.2 x10(3)/mcL 2.0 Monocyte Abs Latest Ref Range: 0.3 - 0.9 x10(3)/mcL 0.8 Eosinophils Abs Latest Ref Range: 0.0 - 0.4 x10(3)/mcL 0.2 Basophils Abs Latest Ref Range: 0.0 - 0.1 x10(3)/mcL 0.0 Sed Rate Latest Ref Range: 2 - 39 mm/hr 23 Sodium Latest Ref Range: 135 - 145 mmol/L 141 Potassium Latest Ref Range: 3.5 - 5.0 mmol/L 3.6 Chloride Latest Ref Range: 98 - 107 mmol/L 104 CO2 Latest Ref Range: 22 - 31 mmol/L 26 Anion Gap Latest Ref Range: 5 - 15 mmol/L 11 BUN Latest Ref Range: 8 - 18 mg/dL 18 Creatinine Latest Ref Range: 0.70 - 1.20 mg/dL 0.65 (L) eGFR Latest Ref Range: >=60 mL/min/1.73 m?? 99 eGFR Latest Ref Range: >=60 mL/min/1.73 m?? 114 Calcium Latest Ref Range: 8.5 - 10.5 mg/dL 9.2 Glucose Lvl Latest Ref Range: 65 - 199 mg/dL 85 Total Protein Latest Ref Range: 6.1 - 8.0 gm/dL 7.3 Albumin Latest Ref Range: 3.2 - 5.2 gm/dL 4.1 Total Bilirubin Latest Ref Range: 0.2 - 1.3 mg/dL 0.2 Alk Phos Latest Ref Range: 35 - 105 unit/L 55 AST Latest Ref Range: 0 - 30 unit/L 14 ALT Latest Ref Range: 0 - 30 unit/L 13 25-OH Vit D Total Latest Ref Range: 21 - 100 ng/mL 26 25-OH Vit D Interp Unknown Insufficient MICHAEL Latest Ref Range: 16 - 85 unit/L 30 CRP Latest Ref Range: <=4.9 mg/L 2.4 TSH Latest Ref Range: 0.27 - 4.20 mcIU/mL 2.27 documented in this encounter Plan of Treatment Upcoming Encounters Date Type Department Care Team (Late st Contact Info) Description 07/21/2024 1:00 PM EDT Office [place] [address] Isaiah Mcpherson MD [facility] [place] [address] documented as of this encounter Goals Goal Patient Goal Type Associated Problems Recent Progress Patient-Stated? Author Home Medication Compliance and Understanding Patient Facing Action Plan Not on track( 024 11:36 AM EDT) No Mckinley Noel, [facility] Note: Reduce Joint damage and flairs, measured by number of office visits for flairs/ x-rays, follow up every 3-6 months documented as of this encounter Procedures Procedure Name Priority Date/Time Associated Diagnosis Comments HC C-REACTIVE PROTEIN Routine 07/06/2020 3:36 PM EDT Rheumatoid arthritis involving multiple sites with positive rheumatoid factor HEMOGRAM Routine 07/06/2020 3:36 PM EDT Rheumatoid arthritis involving multiple sites with positive rheumatoid factor High risk medication use Fatigue, unspecified type DIFFERENTIAL, AUTOMATED Routine 07/06/2020 3:36 PM EDT Rheumatoid arthritis involving multiple sites with positive rheumatoid factor High risk medication use Fatigue, unspecified type IRON AND TIBC Routine 07/06/2020 3:36 PM EDT HC VITAMIN D TOTAL-25 HYDROXY Routine 07/06/2020 3:36 PM EDT Fatigue, unspecified type HC ESR-SEDIMENTATION RATE, BLOOD Routine 07/06/2020 3:36 PM EDT Rheumatoid arthritis involving multiple sites with positive rheumatoid factor HC CBC,PLT & AUTO DIFF Routine 0 3:36 PM EDT Rheumatoid arthritis involving multiple sites with positive rheumatoid factor High risk medication use Fatigue, unspecified type HC PCH ANGIOTENSIN CONVERTING ENZYME Routine 07/06/2020 3:36 PM EDT Acute bilateral ankle pain HC THYROID STIMULATING HORMONE, SERUM Routine 07/06/2020 3:36 PM EDT Fatigue, unspecified type FOLATE, SERUM Routine 07/06/2020 3:36 PM EDT FERRITIN Routine 07/06/2020 3:36 PM EDT VITAMIN B12 Routine 07/06/2020 3:36 PM EDT COMPREHENSIVE METABOLIC PANEL Routine 07/06/2020 3:36 PM EDT Rheumatoid arthritis involving multiple sites with positive rheumatoid factor High risk medication use documented in this encounter Results * (ABNORMAL) Iron and TIBC (07/06/2020 3:36 PM EDT) Iron 45 30 - 150 mcg/dL [facility] TIBC 258 250 - 450 mcg/dL [facility] Iron Saturation 17(L) 20 - 50 % [facility] Blood specimen (specimen) Venous Draw / Unknown 07/06/2020 3:36 PM EDT 07/06/2020 4:39 PM EDT Narrative Resulting Agency Comment Spec In Lab Isaiah Mcpherson MD CHEMISTRY ORDERAB LES [facility] [place] [address] * Folate, serum (07/06/2020 3:36 PM EDT) Folate 14.1 4.8 - 24.2 ng/mL [facility] Blood specimen (specimen) Venous Draw / Unknown 07/06/2020 3:36 PM EDT 07/06/2020 8:28 PM EDT Narrative Resulting Agency Comment Spec In Lab Isaiah Mcpherson MD CHEMISTRY ORDERAB LES [facility] [place] [address] * Vitamin B12 (07/06/2020 3:36 PM EDT) Vitamin B12 305 232 - 1,245 pg/mL [facility] Blood specimen (specimen) Venous Draw / Unknown 07/06/2020 3:36 PM EDT 07/06/2020 8:28 PM EDT Narrative Resulting Agency Comment Spec In Lab Isaiah Mcpherson MD CHEMISTRY ORDERAB LES Performing Organization Address City/[facility]/ZIP Co de Phone Number [facility] [place] [address] * Ferritin (07/06/2020 3:36 PM EDT) [facility] Ferritin 137 30 - 400 ng/mL [facility] Comment: Pediatric reference ranges not verified at [facility] interpret with caution. Reference ranges for females greater than 50 years of age approach values for men, i.e., 30-400 ng/mL. Blood specimen (specimen) Venous Draw / Unknown 07/06/2020 3:36 PM EDT 07/06/2020 8:28 PM EDT Narrative Resulting Agency Comment Spec In Lab Isaiah Mcpherson MD CHEMISTRY ORDERAB LES Performing Organization Address City/[facility] Co de Phone Number [facility] [place] [address] * Differential, Automated (07/06/2020 3:36 PM EDT) [facility] Neutrophil % 51.7 % [facility] Neutrophil Absolute 3.13 1.70 - 6.10 x10(3)/[facility] LABORATORY Lymph % 32.2 % [facility] Lymphocytes Abs 2.0 0.9 - 3.2 x10(3)/[facility] LABORATORY Monocyte % 12.7 % [facility] Monocyte Abs 0.8 0.3 - 0.9 x10(3)/[facility] LABORATORY Eos % 2.6 % [facility] Eosinophils Abs 0.2 0.0 - 0.4 x10(3)/[facility] LABORATORY Basophil % 0.5 % [facility] Baso Absolute 0.0 0.0 - 0.1 x10(3)/[facility] LABORATORY Immature Gran % 0.30 % [facility] Comment: Immature granulocytes(IG's)percentage and absolute count will include metamyelocytes, myelocytes, and promyelocytes. Blood smears from CBCs yielding IG's will be scanned manually for concordance. If this scan disagrees with the automated IG or if promyelocytes are noted, a manual differential will be performed. Immature Gran Absolute 0.02 0.00 - 0.04 x10(3)/mcL [facility] Blood specimen (specimen) 07/06/2020 3:36 PM EDT 07/06/2020 3:52 PM EDT Narrative Resulting Agency Comment Spec In Lab Isaiah Mcpherson MD HEMATOLOGY ORDERA BLES [facility] [place] [address] * (ABNORMAL) Hemogram (07/06/2020 3:36 PM EDT) White Blood Cell 6.1 4.0 - 9.5 x10(3)/mc L [facility] Red Blood Cell 3.67(L) 4.00 - 5.21 x10(6)/mc L [facility] Hemoglobin 12.0 11.7 - 15.5 gm/dL [facility] Hematocrit 35.6(L) 35.7 - 45.8 % [facility] Mean Cell Volume 97.0(H) 82.6 - 94.4 fL [facility] Mean Cell Hemoglobin 32.7(H) 27.1 - 32.0 pg [facility] Mean Cell Hemoglobin Concentration 33.7 31.7 - 35.0 gm/dL [facility] Platelet 249 145 - 357 x10(3)/mc L [facility] RDW Standard Deviation 45.0 37.0 - 46.0 fL [facility] RDW coefficient of variation 12.9 11.5 - 14.1 % [facility] Mean Platelet Volume 9.8 7.6 - 12.9 fL [facility] NRBC% auto 0.0 % [facility] NRBC Absolute 0.000 0.000 - 0.000 x10(3)/mc L [facility] Blood specimen (specimen) 07/06/2020 3:36 PM EDT 07/06/2020 3:52 PM EDT Narrative Resulting Agency Comment Spec In Lab Isaiah Mcpherson MD HEMATOLOGY ORDERA BLES Performing Organization Address [facility]/ZIP Co de Phone Number [facility] [place] [address] * Angiotensin Converting Enzyme (07/06/2020 3:36 PM EDT) [facility] Michael (FEBRUARY) 30 16 - 85 unit/L [facility] Comment: Test Performed by: [place] [address] Decorator Consultant: Maciel Bender M.D. Ph.D.; CLIA# [id number] Blood specimen (specimen) 07/06/2020 3:36 PM EDT 07/07/2020 9:25 AM EDT Narrative Resulting Agency Comment Spec In Lab Isaiah Mcpherson MD LAB SEND OUT ORDE RABLES Performing Organization Address [facility] Co de Phone Number [facility] [place] [address] * Vitamin D, 25-Hydroxy (07/06/2020 3:36 PM EDT) [facility] Vitamin D Total 25 OH 26 21 - 100 ng/mL [facility] Comment: Please note, effective March 02, 2020, additional result field for Vitamin D Interpretation, and updated flagging notification. Vit D Interp Insufficient [facility] Blood specimen (specimen) 07/06/2020 3:36 PM EDT 07/06/2020 3:52 PM EDT Narrative Resulting Agency Comment Spec In Lab Isaiah Mcpherson MD CHEMISTRY ORDERAB LES Performing Organization Address City/[facility] Co de Phone Number [facility] [place] [address] * TSH (07/06/2020 3:36 PM EDT) Thyroid Stimulating Hormone 2.27 0.27 - 4.20 mcIU/mL [facility] Blood specimen (specimen) 07/06/2020 3:36 PM EDT 07/06/2020 3:52 PM EDT Narrative Resulting Agency Comment Spec In Lab Isaiah Mcpherson MD CHEMISTRY ORDERAB LES Performing Organization Address [facility] Co de Phone Number [facility] [place] [address] * CRP, acute inflammation (07/06/2020 3:36 PM EDT) C-Reactive Protein 2.4 <=4.9 mg/L [facility] Blood specimen (specimen) 07/06/2020 3:36 PM EDT 07/06/2020 3:52 PM EDT Narrative Resulting Agency Comment Spec In Lab Isaiah Mcpherson MD CHEMISTRY ORDERAB LES Performing Organization Address [facility] de Phone Number [facility] [place] [address] * Sedimentation rate (07/06/2020 3:36 PM EDT) Sedimentation Rate Automated 23 2 - 39 mm/hr [facility] Comment: Effective October 07, 2019 new capillary photometric technology has resulted in a change in reference ranges. It is recommended that each ESR result be reviewed with its own age appropriate reference range. Blood specimen (specimen) 07/06/2020 3:36 PM EDT 07/06/2020 3:52 PM EDT Narrative Resulting Agency Comment Spec In Lab Isaiah Mcpherson MD HEMATOLOGY ORDERA BLES Performing Organization Address City/[facility]/ZIP Co de Phone Number [facility] [place] [address] * (ABNORMAL) Comprehensive metabolic panel (non-fasting) (07/06/2020 3:36 PM EDT) Glucose 85 65 - 199 mg/dL [facility] Comment:Diabetes: >=200 mg/d L plus symptoms Blood Urea Nitrogen 18 8 - 18 mg/dL [facility] Creatinine 0.65(L) 0.70 - 1.20 mg/dL [facility] Sodium 141 135 - 145 mmol/L [facility] Potassium 3.6 3.5 - 5.0 mmol/L [facility] Comment: Please note: ??Patients with WBC >100,000 may have falsely elevated Potassium levels. ??For accurate Potassium quantification in these patients send serum separator tube (gold top) for subsequent determinations. ??Contact the Clinical Chemistry Laboratory if there are any questions. Chloride 104 98 - 107 mmol/L [facility] Carbon Dioxide 26 22 - 31 mmol/L [facility] Anion Gap 11 5 - 15 mmol/L [facility] Calcium 9.2 8.5 - 10.5 mg/dL [facility] Protein, Total 7.3 6.1 - 8.0 gm/dL [facility] Albumin 4.1 3.2 - 5.2 gm/dL [facility] Aspartate Aminotransferase 14 0 - 30 unit/L [facility] Alanine Aminotransferase 13 0 - 30 unit/L [facility] Alkaline Phosphatase 55 35 - 105 unit/L [facility] Bilirubin, Total 0.2 0.2 - 1.3 mg/dL [facility] Est Glomerular Filtration Rate 99 >=60 mL/min/1. 73 m?? [facility] Comment: The eGFR was calculated using the CKD-EPI equation. As with all creatinine based estimates of kidney function, eGFR values calculated with the CKD-EPI equation are not accurate in patients with acute kidney failure, extremes of body mass or the acutely ill. http://[employer]/[facility]nk[facility] eGFR 114 >=60 mL/min/1. 73 m?? [facility] Comment: The eGFR was calculated using the CKD-EPI equation. As with all creatinine based estimates of kidney function, eGFR values calculated with the CKD-EPI equation are not accurate in patients with acute kidney failure, extremes of body mass or the acutely ill. [email or web address]/[facility] Blood specimen (specimen) 07/06/2020 3:36 PM EDT 07/06/2020 3:52 PM EDT Narrative Resulting Agency Comment Spec In Lab Isaiah Mcpherson MD CHEMISTRY ORDERAB LES [facility] [place] [id number] documented in this encounter Visit Diagnoses Diagnosis Rheumatoid arthritis involving multiple sites with positive rheumatoid factor Acute bilateral ankle pain Right lateral epicondylitis Lateral epicondylitis of elbow High risk medication use Encounter for long-term (current) use of other medications Fatigue, unspecified type Anemia, unspecified type Macrocytosis Other specified diseases of blood and blood-forming organs documented in this encounter Care Teams Director Of Sales Support Relationship Specialty Start Date End Date Mikayla Aquino MD PCP - General Family Medicine 07/06/20 documented as of this encounter
--- OUTSIDE RECORDS SUMMARY | 2024-06-19 00:20 | XMS_ITS | Encounter Summary ---
Author Organization [place] [address] Care Team Providers Care Studio Technician Name Role Phone Anaya Jennifer Coffey APRN Primary Care Provider [phone] Encounter Details Date Type Department Care Team (Latest Contact Info) Description 06/17/2020 9:44 PM EDT - 06/17/2020 11:59 PM EDT Hospital [place] [address] Discharge Disposition: Home Social History Tobacco Use [...] Date End Date metHOTREXate 2.5 mg Tablet Take 8 tablets by mouth once a week. 104 tablet 1 04/12/2020 12/22/2020 Adalimumab (Humira Pen) 40 mg/0.8 mL Pen Injector Kit Inject 0.8 mLs subcutaneously every 14 days. Inject the contents of one pen (40 mg) subcutaneously once every 14 days. 2 Pen 5 11/20/2019 08/11/2020 folic acid (FOLVITE) 1 mg Tablet TAKE ONE TABLET BY MOUTH EVERY DAY 90 tablet 3 04/13/2019 08/20/2020 citalopram (CELEXA) 20 mg Tablet daily. 2 01/03/2017 04/24/2022 documented as of this encounter Plan of Treatment Upcoming Encounters Date Type Department Care Team (Late st Contact Info) Description 07/21/2024 1:00 PM EDT Office [place] [address] Isaiah Mcpherson MD [facility] [place] [address] documented as of this encounter Goals Goal [...] Procedure Name Priority Date/Time Associated Diagnosis Comments COVID-19 PCR Routine 06/17/2020 12:01 AM EDT documented in this encounter Results * COVID-19 PCR (06/17/2020 12:01 AM EDT) SARS-CoV-2 RNA Not Detected Not Detected [facility] Comment: This result should be interpreted in combination with the clinical observations, patient history and epidemiological information. For testing of asymptomatic individuals, assay performance characteristics and clinical utility have not been evaluated. Testing for SARS-CoV-2 (Severe acute respiratory syndrome coronavirus 2, formerly known as 2019 novel coronavirus or 2019-nCoV) to aid in the diagnosis of COVID-19 is performed using the [employer] RealTime SARS-CoV-2 as authorized by the FDA Emergency Use Authorization (EUA). This EUA assay is intended for In-vitro Diagnostic (IVD) use with respiratory specimens such as nasopharyngeal swabs collected from individuals during the acute phase of infection. This assay is performed based on the instructions for use provided by the [employer] and additional guidance provided by CDC and FDA. Testing is performed in the [facility] within the Department of Pathology and Laboratory Medicine at [facility], certified under the Clinical Laboratory Improvement Amendments of 1988 (CLIA), 42 U.S.C. section 263a, to perform high complexity tests. Assay performance has been verified according to clinical laboratory regulatory requirements. Test results are provided above. A result of Not Detected indicates that the viral RNA target is not present but does not preclude SARS-CoV-2 infection. False negative results may occur if a specimen is improperly collected, transported or handled; if amplification inhibitors are present; or if inadequate numbers of viral particles are present in the specimen. A result of Detected suggests a current or recent infection and the patient is presumed to be infected. As required or requested by public health authorities, positive specimens may be sent for additional testing. Positive and negative predictive values for this test are highly dependent on disease prevalence. A result of Invalid indicates that neither the viral RNA targets nor the internal control target was detected. An invalid result suggests the presence of inhibitors. Recollection is recommended in the case of an invalid result. CDC COVID-19 criteria for testing on human specimens and clinical management guidance information are available at the CDC Coronavirus Disease 2019 (COVID-19) webpage under Information for Healthcare Professionals (https://www.cdc.gov/coronavirus/2019-ncov/hcp/index.html) Additional information about this and other EUA tests can be found in provider and patient fact sheets at the following FDA website: https://www.fda.gov/medical-devices/oupydlagn-zxyoobvatw-uccinhh-devices/emergen -us e-authorizations#fskca49qtq SARS-CoV-2 RNA Source [employer] Swab [facility] Nasopharyngeal swab (specimen) Other / Unknown 06/17/2020 12:01 AM EDT 06/18/2020 3:07 AM EDT Narrative Resulting Agency Comment Spec In Lab Janny Sharp APRN MOLECULAR ORDER SALOME [facility] [place] [address] documented in this encounter Visit Diagnoses Not on filedocumented in this encounter Care Teams Studio Technician Relationship Specialty Start Date End Date Jennifer Anaya APRN [facility] [address] PCP - General Family Medicine 06/03/19 07/05/20 documented as of this encounter
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
--- OUTSIDE RECORDS SUMMARY | 2024-06-19 00:20 | XMS_ITS | Encounter Summary ---
Author Organization [facility] [place] [address] Care Team Providers Care Surveillance Analyst Name Role Phone Jennifer Anaya Erlinda HINOJOSA Primary Care Provider [phone] Reason for Visit * Reason Comments Medication Management Encounter Details Date Type Department Care Team (Late st Contact Info) Description 03/24/2020 Specialty [place] [id number] Juan Jose Degroot [facility] Social History Tobacco Use Types Packs/Day Years Used Date Smoking Tobacco: Former Cigarettes Smokeless Tobacco: Never Comments:8 years ago Sex and Gender Information Value Date Recorded Sex Assigned at Not on file Gender Identity Not on file Sexual Orientation Not on file documented as of this encounter Progress Notes * Juan Jose Degroot [facility] - 03/24/2020 5:12 PM EDT Clinical Management Plan: Refill Specialty Pharmacy Consultation; Juan Jose Degroot [facility] Comprehensive Medication Management (CMM) Crystal Felder MsPaulino [...] beneficiary Provider: plan sponsor pharmacist Visit Type: [facility] Follow-up Method of Contact: by telephone Cognitive Ability: good Cognitive Impairment Status Verified this Year: no Allergies and Drug intolerance: No Known Allergies Medication Reconciliation Discrepancies (compared to [facility] med list) -none New medications: no New medical conditions: no [...] were made at the appointment and that [facility] is providing recommendations (summary located at top of note) for provider review and follow up. Juan Jose Degroot RPH 03/24/20 5:13 PM documented in this encounter Plan of Treatment Upcoming Encounters Date Type Department Care Team (Late st Contact Info) Description 07/21/2024 1:00 PM EDT [place] [address] Isaiah Mcpherson MD [facility] [place] [address] documented as of this encounter Goals Goal Patient Goal Type Associated Problems Recent Progress Patient-Stated? Author [facility] Medication Compliance and Understanding Patient Facing Action Plan Not on track( 024 11:36 AM EDT) No Mckinley Noel [facility] Note: Reduce Joint damage and flairs, measured by number of office visits for flairs/ x-rays, follow up every 3-6 months documented as of this encounter Visit Diagnoses Not on filedocumented in this encounter Care Teams Surveillance Analyst Relationship Specialty Start Date End Date Jennifer Anaya APRN [place] [id number] PCP - General Family Medicine 06/03/19 07/05/20 documented as of this encounter
--- OUTSIDE RECORDS SUMMARY | 2024-06-19 00:20 | XMS_ITS | Encounter Summary ---
Author Organization [facility] [place] [address] Care Team Providers Care County Ordinary Name Role Phone Héctor Jennifer Coffey APRN Primary Care Provider [phone] Reason for Visit * Auth/Cert Specialty Diagnoses / Procedures Referred By Contgarrett t Referred To Contact Diagnoses Request coccygeal nerve block for coccydynia. Procedures PRO INJECT NERV BLCK, OTHR PERIPH NERV NERVE BLOCK, OTHER PERIPHERAL NERVE OR BRANCH (WRVU 0.75) Referral ID Status Reason Start Date Expiration Date Visits Re quested Visits Authorized [id number] 1 1 Encounter Details Date Type Department Care Team (Late st Contact Info) Description 09/30/2019 1:00 PM EST - 09/30/2019 1:30 PM EST [place] [address] [facility] [place] [place] [address] NERVE BLOCK, OTHER PERIPHERAL NERVE OR BRANCH [...] Sign Reading Time Taken Comments Blood Pressure 135/89 09/30/2019 1:12 PM EST Pulse - - Temperature - - Respiratory Rate 18 09/30/2019 1:12 PM EST Oxygen Saturation 95% 09/30/2019 1:12 PM EST Inhaled Oxygen Concentration - - Weight 68 kg (150 lb) 09/30/2019 12:40 PM EST Height 157.5 cm (5' 2) 09/30/2019 12:40 PM EST Body Mass Index 27.44 09/30/2019 12:40 PM EST documented in this encounter Discharge Instructions * Discharge Instructions* Anjelica Alaniz RN - 09/30/2019 1:14 PM EST Pain Management Center Discharge Instructions: You were [...] During Procedure Date/Time Order Dose Route Action 09/30/2019 1310 BUpivacaine (PF) (MARCAINE) 0.25 % (2.5 mg/mL) injection 10 mL Other Given 09/30/2019 1310 iohexol (OMNIPAQUE) 240 mg/mL solution 2 mL Other Given During regular business hours, please phone [...] or proceed to your local emergency department. ANJELICA ALANIZ RN Special instructions documented in this encounter [...] as of this encounter H&P Notes * Mali Banda DO - 09/30/2019 1:17 PM EST Patient Name: Crystal Felder Patient Age: 54 y.o. Birthdate: 1965 Admit date: 09/30/2019 Attending Physician: Kanwal PREPROCEDURE HISTORY AND PHYSICAL Date of Visit: September 30, 2019 Ms. Felder presents for a Ganglion Impar Block. Chief Complaint: Tailbone pain HPI: Subjective Crystal Felder is a 54 y.o. female who presents today for a Ganglion Impar Block with a diagnosis of 1. Coccydynia with symptoms of Tailbone pain. The history is obtained from the patient, and I have reviewed medical records provided by the referring physician and located in the electronic medical record to fill in gaps in the patient's recollection of events, treatments and outcomes. LOCATION: Tailbone pain. PAIN LEVEL AT REST 4/10 PAST MEDICAL HISTORY: No past medical history on file. There are no medical history contraindications to this procedure. PAST SURGICAL HISTORY: No past surgical history on file. There are no past surgical contraindications to this procedure ALLERGIES: Patient has no known allergies. There are no allergic contraindications to this procedure. MEDICATIONS: Current Facility-Administered Medications: ??? iohexol (OMNIPAQUE) 240 mg/mL solution, , , Once PRN, Cook Mali V, DO, 2 mL at 09/30/19 1310 ??? BUpivacaine (PF) (MARCAINE) 0.25 % (2.5 mg/mL) injection, , , Once PRN, Cook Mali V, DO, 10 mL at 09/30/19 1310 Current Outpatient Medications: ??? Adalimumab (HUMIRA PEN) 40 mg/0.8 mL Pen Injector Kit, Inject 0.8 mLs subcutaneously every 14 days., Disp: 1 kit, Rfl: 5 ??? folic acid (FOLVITE) 1 mg Tablet, TAKE ONE TABLET BY MOUTH EVERY DAY, Disp: 90 tablet, Rfl: 3 ??? metHOTREXate 2.5 mg Tablet, TAKE 8 TABLETS BY MOUTH ONCE WEEKLY, CAN TAKE WITHOUT REGARD TO FOOD CALL CLINIC BEFORE STARTING MEDICATION, Disp: 104 tablet, Rfl: 3 ??? citalopram (CELEXA) 20 mg Tablet, daily., Disp: , Rfl: 2 There are no medication contraindications to this procedure. FAMILY HISTORY: No family history on file. [...] file Gets together: Not on file Attends samaritan service: Not on file Active member of [...] Social History Narrative ??? Not on file There are no social history contraindications to this procedure. ROS: Review of Systems Constitutional: Negative for fever, chills, or recent infection. Respiratory: Negative for shortness of breath. Cardiovascular: Negative for chest pain. Musculoskeletal: Positive for Tailbone pain. Psychiatric/Behavioral: Negative for agitation and behavioral problems. PHYSICAL EXAM: BP 135/89 Resp 18 Ht 157.5 cm (5' 2) Wt 68 kg (150 lb) SpO2 95% BMI 27.44 kg/m?? Physical Exam Constitutional: She appears well-developed and well-nourished. No distress. Cardiovascular: Normal heart rate. Pulmonary/Chest: Effort normal and breath sounds normal. Skin: She is not diaphoretic. This is no rash, apparent infection, or other abnormality to the areaof the proposed injection. There are no physical examination findings which would preclude this procedure. ASSESSMENT: 1. Coccydynia PLAN: Proceed with procedure as planned. Thank you for the opportunity to participate in Crystal Felder's care. Please feel free to contact me with any questions. Sincerely, MALI BANDA DO, MPH Acquisition Associate of Anesthesiology/[facility] [employer] at [facility] Sales Agent, Pain Medicine Fellowship Sweatband Maker, Functional Temple Program ABPM&R - Subspecialty board certification in Pain Medicine documented in this encounter Miscellaneous Notes * Op Note - Mali Banda DO - 09/30/2019 1:17 PM EST Pain Management Operative Note Patient Name: Crystal Felder : [id number] MR#: [id number] Case Date: 09/30/2019 Surgeon: Surgeon(s) and Role: * Mali Banda DO - Primary Present on Admission: ??? Coccydynia Postoperative diagnosis: Same Procedure(s) (LRB): NERVE BLOCK, OTHER PERIPHERAL NERVE OR BRANCH (WRVU 0.75) (N/A) GANGLION IMPAR BLOCK PROCEDURE NOTE Ms. Crystal Felder has been referred to the procedure suite of the Pain Management Center for a fluoroscopically-guided Ganglion Impar Block. 30% reduction in tailbone pain to date with the first Ganglion Impar Block on 06/30/2019. Please note that Ganglion impar block appears to be effective in patients who have coccygodynia resistant to conservative therapy, with high success rates and prolonged duration of effect. Wendi OH, Nasrin S, Kay O; Pain Relief due to Transsacrococcygeal Ganglion Impar Block in Chronic Coccygodynia: A Flat Sorting Machine Clerk Study. Pain Med. 2015 Apr;16(7):1278-81. doi: 10.1111/pme.52537. Epub 2014. Ms. Felder was greeted by [...] The insertion site was then infiltrated with a mixture of 9cc 1% lidocaine mixed with 1cc of Bicarbonate. Once the complete skin anesthesia was confirmed, [...] noted with infiltration with 240 contrast. Appropriate c ontrast flow was fluoroscopically visualized with 2 cc contrast ascending superiorly on the anterior surface of the sacrum. No blood vessel patterns were visualized on fluoroscopy. I then injected 9 cc of 0.25% Bupivacaine . The needle was then removed without difficulty and pressure was applied tothe skin entry point. Bandages were placed. Throughout the procedure, there were not any unusual discomforts expressed by Mrs. Felder. (48 cc of Omnipaque) Ms. Felder's vital signs were stable throughout the procedure and were as recorded in nursing records. Follow up plans and appointments were discussed with Ms. Felder. Post procedure instruction was given as documented in nursing records and having met discharge criteria he was discharged from the PainManagement Center. COMMENTS: 0/10 pain after the procedure. I personally performed this entire procedure. Mali Banda DO, MPH ABPMR-subspecialty board certification in Pain Medicine Attending Physician - Pain Management CC: [place] [address] documented in this encounter Plan of Treatment Upcoming Encounters Date Type Department Care Team (Late st Contact Info) Description 07/21/2024 1:00 PM EDT [place] [address] Isaiah Mcpherson MD [facility] [place] [place] [address] documented as of this encounter Visit Diagnoses Diagnosis Coccydynia- Primary Other disorder of coccyx Coccydynia Other disorder of coccyx documented in this encounter Administered Medications Inactive Administered Medications - up to 3 most recent administrations Medication Order MAR Action Action Date Dose Rate Site BUpivacaine (PF) (MARCAINE) 0.25 % (2.5 mg/mL) injection ONCE PRN, Starting on Sat09/30/19 at 1310, Until Sat09/30/19 at 1517, Intra-Operative (Intra-Procedure), Routine Given 09/30/2019 1:10 PM EST 10 mLs iohexol (OMNIPAQUE) 240 mg/mL solution ONCE PRN, Starting on Sat09/30/19 at 1310, Until Sat09/30/19 at 1517, Intra-Operative (Intra-Procedure), Routine Given 09/30/2019 1:10 PM EST 2 mLs documented in this encounter Active and Recently Administered Medications Times are shown in EST. PRN Medication Order 09/28/2019 09/29/2019 09/30/2019 BUpivacaine (PF) (MARCAINE) 0.25 % (2.5 mg/mL) injection (CANCELED) ONCE PRN, Starting on Sat09/30/19 at 1310, Until Sat09/30/19 at 1517, Intra-Operative (Intra-Procedure), Routine 1310 (Given - Provid er: Mali Sierra DO) iohexol (OMNIPAQUE) 240 mg/mL solution (CANCELED) ONCE PRN, Starting on Sat09/30/19 at 1310, Until Sat09/30/19 at 1517, Intra-Operative (Intra-Procedure), Routine 1310 (Given - Provid er: Mali Sierra DO) documented in this encounter Care Teams County Ordinary Relationship Specialty Start Date End Date Jennifer Anaya APRN [facility] [place] [address] PCP - General Family Medicine 06/03/19 07/05/20 documented as of this encounter
--- OUTSIDE RECORDS SUMMARY | 2024-06-19 00:20 | XMS_ITS | Encounter Summary ---
Author Organization [facility] [place] [address] Care Team Providers Care Vegetable Farm Worker Name Role Phone Ping Garcia APRN Primary Care Provider [phone] Reason for Visit * Reason Comments Medication Refill Encounter Details Date Type Department Care Team (Late st Contact Info) Description 04/11/2019 [place] [address] Isaiah Mcpherson MD [facility] [place] [address] Social History Tobacco Use Types Packs/Day Years [...] 1:00 PM EDT Office [place] [address] Isaiah Mcpherson MD [facility] [place] [address] documented as of this encounter Visit Diagnoses Not on filedocumented in this encounter Care Teams Vegetable Farm Worker Relationship Specialty Start Date End Date Ping Garcia APRN [address] [place] [id number] PCP - General Family Medicine 3/10/17 8/6/19 documented as of this encounter
--- OUTSIDE RECORDS SUMMARY | 2024-06-19 00:20 | XMS_ITS | Encounter Summary ---
Author Organization [facility] [place] [address] Care Team Providers Care Line O Scribe Operator Name Role Phone Ping Garcia ASHISH Primary Care Provider [phone] [phone] Reason for Visit * Reason Comments Medication Management Encounter Details Date Type Department Care Team (Late st Contact Info) Description 03/30/2019 Specialty [place] [address] Avni Boland RPH Social History Tobacco Use Types Packs/Day Years Used Date Smoking Tobacco: Former Cigarettes Smokeless Tobacco: Never Comments:8 years ago Sex and Gender Information Value Date Recorded Sex Assigned at Not on file Gender Identity Not on file Sexual Orientation Not on file documented as of this encounter Progress Notes * Avni Boland RPH - 03/30/2019 4:11 PM EDT Clinical Management Plan: Refill Specialty Pharmacy Consultation; Avni Boland RPH Comprehensive Medication Management (CMM) Crystal Felder Ms. Crystal Felder is a 54 y.o. (1965) female who refilled their specialty medication, humira ,without speaking to a promotional representative from the Specialty Pharmacy. The medication was refilled on03/30/19 for a 28 day supply for $3 copay. Adherence: Gaps in fill history: none Was a change made to the Care Plan: no If yes, should the medication be held: No The specialty pharmacy staff will follow up with the patient 5-7 days prior to next refill for reminder if needed. Avni Boland RPH 03/30/19 4:12 PM documented in this encounter Plan of Treatment Upcoming Encounters Date Type Department Care Team (Late st Contact Info) Description 07/21/2024 1:00 PM EDT [place] [address] Isaiah Mcpherson MD [facility] [place] [address] documented as of this encounter Visit Diagnoses Not on filedocumented in this encounter Care Teams Line O Scribe Operator Relationship Specialty Start Date End Date Ping Garcia APRN [address] [place] [address] PCP - General Family Medicine 01/04/17 06/02/19 documented as of this encounter
--- OUTSIDE RECORDS SUMMARY | 2024-06-19 00:20 | XMS_ITS | Encounter Summary ---
Author Organization [facility] [place] [address] Care Team Providers Care News Internship Name Role Phone Jennifer Anaya Erlinda HINOJOSA Primary Care Provider [phone]- [phone] Reason for Visit * Reason Onset Date Comments Prior Authorization 11/20/2019 Radha Benítez h Encounter Details Date Type Department Care Team (Late st Contact Info) Description 11/20/2019 [place] [phone] Fabio Walton CPHT Prior Authorization (Radha Catherine) Social History Tobacco Use Types Packs/Day Years Used Date Smoking Tobacco: Former Cigarettes Smokeless Tobacco: Never Comments:8 years ago Sex and Gender Information Value Date Recorded Sex Assigned at Not on file Gender Identity Not on file Sexual Orientation Not on file documented as of this encounter Miscellaneous Notes * Telephone Encounter - Fabio Walton CPHT - 11/20/2019 12:59 PM EST [facility], Prior Authorization Approval Medication Name: Humira Pen 40 mg/0.8 ml PNKT FILLABLE AT [facility]? yes APPROVAL DATES: 11/20/2019-11/20/2020 SPECIFIC INS REQUIREMENT: May Fill With [facility] CASE/REFERENCE # [id number] APPROVAL NOTIFICATION RECEIVED VIA: Fax COPAY: $3.00 COPAY ASSISTANCE NEEDED?: No NOTES: N/A * Telephone Encounter - Fabio Walton CPHT - 11/20/2019 11:59 AM EST [facility], Medication Prior Authorization Patient: Crystal Felder Patient : 1965 Patient Address: [address] [address] (home) Medication: Humira Subscriber Insurance: [place] Physician: Isaiah Mcpherson Sent Via: Fax Gutierrez: Ref/Case/PA#: Medication Strength Frequency Requested: Humira 40 mg/0.8 ml SOAJ Inject 40 mg (1 Pen) Subcutaneously Every 14 Days Qty/Day Supply: 12/25 New Start: No Diagnosis & ICD-10 Code: Rheumatoid Arthritis M06.9 documented in this encounter Plan of Treatment Upcoming Encounters Date Type Department Care Team (Late st Contact Info) Description 07/21/2024 1:00 PM EDT Office [place] [address] Isaiah Mcpherson MD [facility] [place] [address] documented as of this encounter Visit Diagnoses Not on filedocumented in this encounter Care Teams News Internship Relationship Specialty Start Date End Date Jennifer Anaya APRN [address] [place], [place] [id number] PCP - General Family Medicine 06/03/19 07/05/20 documented as of this encounter
--- OUTSIDE RECORDS SUMMARY | 2024-06-19 00:20 | XMS_ITS | Encounter Summary ---
Author Organization [facility] [place] [address] Care Team Providers Care Examination Grader Name Role Phone Mikayla Aquino MD Primary Care Provider [phone] Encounter Details Date Type Department Care Team (Late st Contact Info) Description 08/11/2020 [place] [address] Isaiah Mcpherson MD [facility] [place] [address] [place] [address] Social History Tobacco Use Types Packs/Day Years [...] EDT Office [place] [address] Isaiah Mcpherson MD [facility] [place] [address] documented as of this encounter Goals Goal Patient Goal Type Associated Problems Recent Progress Patient-Stated? Author [facility] Medication Compliance and Understanding Patient Facing Action Plan Not on track( 024 11:36 AM EDT) No Mckinley Noel, [facility] Note: Reduce Joint damage and flairs, measured by number of office visits for flairs/ x-rays, follow up every 3-6 months documented as of this encounter Visit Diagnoses Not on filedocumented in this encounter Care Teams Examination Grader Relationship Specialty Start Date End Date Mikayla Aquino MD PCP - General Family Medicine 07/06/20 documented as of this encounter
--- OUTSIDE RECORDS SUMMARY | 2024-06-19 00:20 | XMS_ITS | Encounter Summary ---
Author Organization [facility] [place] [address] Care Team Providers Care Machinery Erector Name Role Phone Mikayla Aquino MD Primary Care Provider [phone] Reason for Visit * Reason Comments Medication Refill Encounter Details Date Type Department Care Team (Late Contact Info) Description 04/12/2020 [place] [address] Isaiah Mcpherson MD [facility] [place] [address] [place] [address] Social History Tobacco Use Types Packs/Day Years Used Date Smoking Tobacco: Former Cigarettes Smokeless Tobacco: Never Comments:8 years ago Sex and Gender Information Value Date Recorded Sex Assigned at Not on file Gender Identity Not on file Sexual Orientation Not on file documented as of this encounter Miscellaneous Notes * Telephone Encounter - Chon Barraza RN - 04/12/2020 8:50 AM EDT No visit and no labs in over a year. Will forward to Dr. Mcpherson to see if he wants to fill. Sent a [facility] message to Crystal about labs. documented in this encounter Plan of Treatment Upcoming Encounters Date Type Department Care Team (Late Contact Info) Description 07/21/2024 1:00 PM EDT [place] [address] Isaiah Mcpherson MD [facility] [place] [place] [address] documented as of this encounter Goals Goal [...] on filedocumented in this encounter Care Teams Machinery Erector Relationship Specialty Start Date End Date Mikayla Aquino MD PCP - General Family Medicine 07/06/20 documented as of this encounter
--- OUTSIDE RECORDS SUMMARY | 2024-06-19 00:20 | XMS_ITS | Encounter Summary ---
Author Organization [facility] [place] [address] Care Team Providers Care Trust Advisor Name Role Phone Héctor Jennifer Coffey APRN Primary Care Provider [phone] Reason for Visit * Reason Onset Date Comments Tabitha 01/21/2020 Encounter Details Date Type Department Care Team (Late st Contact Info) Description 01/21/2020 Telephone [place] [address] Chon Barraza, RN Tabitha Social History Tobacco Use Types Packs/Day Years Used Date Smoking Tobacco: Former Cigarettes Smokeless Tobacco: Never Comments:8 years ago Sex and Gender Information Value Date Recorded Sex Assigned at Not on file Gender Identity Not on file Sexual Orientation Not on file documented as of this encounter Miscellaneous Notes * Telephone Encounter - Chon Barraza RN - 01/21/2020 2:30 PM EDT I spoke with Crystal and she has a few things going on, she reports for the last month or so she hashad a cold a couple of times and no one else in the house seems to get it. Denies any fevers or chills and states she coughs up moderate amount of thick white secretions. Feels sorta run down. Reports she held a dose or 2 of Methotrexate and Humira but has pretty much taken as planned most of the time. Reports shingles appeared 3 days ago to the left side of her abdomen and flank area. States blisters are present but not open. Advised to keep covered and dry as blisters will likely draineventually. Denies any on her face or near her eyes but states her face feels prickly at times. Advised shingles can spread into the eye so be aware of good hand Hygiene and not touching her face. Reports she is taking acyclovir 800 mg 5 times a day but finds it difficult to get in 5 doses. Advisedto do the best she can. Has not had a Shingles Vaccine. Advised to hold Methotrexate and Humira until I discuss with Dr. Mcpherson. Asked that she call me on Saturday with an update or sooner if needed. Yes, hold MTX and Humira until the lesions are definitely receding and she's not getting any new ones. LM to RTC to nurse. documented in this encounter Plan of Treatment Upcoming Encounters Date Type Department Care Team (Late st Contact Info) Description 07/21/2024 1:00 PM EDT Office [place] [address] Isaiah Mcpherson MD [facility] [place] [address] documented as of this encounter Goals Goal Patient Goal Type Associated Problems Recent Progress Patient-Stated? Author [facility] Medication Compliance and Understanding Patient Facing Action Plan Not on track( 024 11:36 AM EDT) No Mckinley Noel, [facility] Note: Reduce Joint damage and flairs, measured by number of office visits for flairs/ x-rays, follow up every 3-6 months documented as of this encounter Visit Diagnoses Not on filedocumented in this encounter Care Teams Trust Advisor Relationship Specialty Start Date End Date Jennifer Anaya APRN [facility] [place] [address] PCP - General Family Medicine 06/03/19 07/05/20 documented as of this encounter
--- OUTSIDE RECORDS SUMMARY | 2024-06-19 00:20 | XMS_ITS | Encounter Summary ---
Author Organization [facility] [place] [address] Care Team Providers Care Interior Plant Caretaker Name Role Phone JosePing Maddie HINOJOSA Primary Care Provider [phone] Reason for Visit * Reason Comments Medication Management Encounter Details Date Type Department Care Team (Late st Contact Info) Description 04/17/2019 Specialty [place] [address] Avni Boland RPH Social History Tobacco Use Types Packs/Day Years Used Date Smoking Tobacco: Former Cigarettes Smokeless Tobacco: Never Comments:8 years ago Sex and Gender Information Value Date Recorded Sex Assigned at Not on file Gender Identity Not on file Sexual Orientation Not on file documented as of this encounter Progress Notes * Avni Boland RPH - 04/17/2019 4:33 PM EDT Clinical Management Plan: Refill Specialty Pharmacy Consultation; Avni Boland RPH Comprehensive Medication Management (CMM) Crystal Felder MsPaulino Felder is a 54 y.o. (1965) female who was contacted in regard to a specialty medication refill reminder. Spoke with patient regarding humira. A review of the medication therapy was [...] Title Type of Medication Management: chronic disease management Referred By: provider Recipient: beneficiary Provider: plan sponsor pharmacist Visit Type: [facility] [place] Follow[place] Method of Contact: by telephone Cognitive Ability: good Cognitive Impairment Status Verified this Year: no Allergies and Drug intolerance: No Known Allergies Medication Reconciliation Discrepancies (compared to [facility] med list) -none New medications: no New [...] used: directed education Support network for adherence: healthcare provider Confirmed plan for next specialty medication refill: delivery by pharmacy Refills needed for supportive medications: not needed Are you experiencing any side effects from your medications? no Pt understands no changes to current drug regimen were made at the appointment and that [facility] is providing recommendations (summary located at top of note) for provider review and follow up. Avni Boland RPH 04/17/19 4:34 PM documented in this encounter Plan of Treatment Upcoming Encounters Date Type Department Care Team (Late st Contact Info) Description 07/21/2024 1:00 PM EDT Office [place] [address] Isaiah Mcpherson MD [facility] [place] [address] documented as of this encounter Visit Diagnoses Not on filedocumented in this encounter Care Teams Interior Plant Caretaker Relationship Specialty Start Date End Date Ping Garcia APRN [address] [place] [address] PCP - General Family Medicine 01/04/17 06/02/19 documented as of this encounter
--- OUTSIDE RECORDS SUMMARY | 2024-06-19 00:20 | XMS_ITS | Encounter Summary ---
Author Organization [facility] [place] [address] Care Team Providers Care Solar Installation Technician Name Role Phone Jennifer Anaya Erlinda HINOJOSA Primary Care Provider [phone]- [phone] Reason for Visit * Reason Comments Medication Management Encounter Details Date Type Department Care Team (Late st Contact Info) Description 09/09/2019 Specialty [place] [id number] Sera Babcock RPH Social History Tobacco Use Types Packs/Day Years Used Date Smoking Tobacco: Former Cigarettes Smokeless Tobacco: Never Comments:8 years ago Sex and Gender Information Value Date Recorded Sex Assigned at Not on file Gender Identity Not on file Sexual Orientation Not on file documented as of this encounter Progress Notes * Sera Babcock RPH - 09/09/2019 4:15 PM EST Clinical Management Plan: Refill Specialty Pharmacy Consultation; Sera Babcock Bernice Comprehensive Medication Management (CMM) Crystalantonio Felder MsPaulino Felder is a 54 y.o. [...] beneficiary Provider: plan sponsor pharmacist [place] [facility] [place] Method of Contact: by telephone Cognitive Ability: good Cognitive Impairment Status Verified this Year: no Allergies and Drug intolerance: No Known Allergies Medication Reconciliation Discrepancies (compared to [facility] med list) -no New medications: no New medical conditions: no [...] at the appointment and that [facility] is providing recommendations (summary located at top of note) for provider review and follow up. Sera Babcock [facility] 09/09/19 4:16 PM documented in this encounter Plan of Treatment Upcoming Encounters Date Type Department Care Team (Late st Contact Info) Description 07/21/2024 1:00 PM EDT Office [place] [address] Isaiah Mcpherson MD [facility] [place] [address] documented as of this encounter Visit Diagnoses Not on filedocumented in this encounter Care Teams Solar Installation Technician Relationship Specialty Start Date End Date Jennifer Anaya APRN [facility] [place] [address] PCP - General Family Medicine 06/03/19 07/05/20 documented as of this encounter
--- OUTSIDE RECORDS SUMMARY | 2024-06-19 00:20 | XMS_ITS | Encounter Summary ---
[facility] [place] [address] Care Team Providers Care Vault Person Name Role Phone Mikayla Aquino MD Primary Care Provider [phone] Encounter Details Date Type Department Care Team (Late st Contact Info) Description 08/10/2020 [place] [phone] Manisha Kaur, [facility] Social History Tobacco Use Types Packs/Day Years Used Date Smoking Tobacco: Former Cigarettes Smokeless Tobacco: Never Comments:8 years ago Sex and Gender Information Value Date Recorded Sex Assigned at Not on file Gender Identity Not on file Sexual Orientation Not on file documented as of this encounter Miscellaneous Notes * Telephone Encounter - Manisha Kaur - 08/10/2020 4:56 PM EDT Clinical Management Plan: Refill Specialty Pharmacy Consultation; Manisha Kaur Comprehensive Medication Management (CMM) Crystal Felder MsPaulino [...] Known Allergies Medication Reconciliation Discrepancies (compared to [facility] med list) No New medications: No New medical conditions: No New allergies: No Adherence: Any missed doses? No Are you experiencing any side effects from your medications? No Patient understands no changes to current drug regimen were made.. Manisha Kaur 08/10/20 4:56 PM documented in this encounter Plan of Treatment Upcoming Encounters Date Type Department Care Team (Late st Contact Info) Description 07/21/2024 1:00 PM EDT Office [place] [address] Isaiah Mcpherson MD [facility] [place] [address] documented as of this encounter Goals Goal Patient Goal Type Associated Problems Recent Progress Patient-Stated? Author [facility] Medication Compliance and Understanding Patient Facing Action Plan Not on track( 024 11:36 AM EDT) No Mckinley Noel, [facility] Note: Reduce Joint damage and flairs, measured by number of office visits for flairs/ x-rays, follow up every 3-6 months documented as of this encounter Visit Diagnoses Not on filedocumented in this encounter Care Teams Vault Person Relationship Specialty Start Date End Date Mikayla Aquino MD PCP - General Family Medicine 07/06/20 documented as of this encounter
--- OUTSIDE RECORDS SUMMARY | 2024-06-19 00:20 | XMS_ITS | Encounter Summary ---
Author Organization [facility] [place] [address] Care Team Providers Care Grader Operator Name Role Phone Jennifer Anaya Erlinda HINOJOSA Primary Care Provider [phone] Reason for Visit * Reason Comments Medication Management Medication Refill Encounter Details Date Type Department Care Team (Late st Contact Info) Description 11/20/2019 Specialty [place] [address] Kell England [facility] Social History Tobacco Use Types Packs/Day Years Used Date Smoking Tobacco: Former Cigarettes Smokeless Tobacco: Never Comments:8 years ago Sex and Gender Information Value Date Recorded Sex Assigned at Not on file Gender Identity Not on file Sexual Orientation Not on file documented as of this encounter Progress Notes * Kell England Bernice - 11/20/2019 10:25 AM EST Clinical Management Plan: Refill Specialty Pharmacy Consultation; Kell England [facility] Comprehensive Medication Management (CMM) Crystal Felder Ms. [...] beneficiary Provider: plan sponsor pharmacist Visit Type: [facility] [place] [facility] Follow-up Method of Contact: by telephone Cognitive Ability: good Cognitive Impairment Status Verified this Year: no Allergies and Drug intolerance: No Known Allergies Medication Reconciliation Discrepancies (compared to [facility] med list) -none New medications: no New [...] were made at the appointment and that [facility] is providing recommendations (summary located at top of note) for provider review and follow up. Kell England RPH 11/20/19 10:26 AM documented in this encounter Plan of Treatment Upcoming Encounters Date Type Department Care Team (Late st Contact Info) Description 07/21/2024 1:00 PM EDT Office [place] [address] Isaiah Mcpherson MD [facility] [place] [place] [address] documented as of this encounter Visit Diagnoses Not on filedocumented in this encounter Care Teams Grader Operator Relationship Specialty Start Date End Date Jennifer Anaya APRN [facility] [address] PCP - General Family Medicine 06/03/19 07/05/20 documented as of this encounter
--- OUTSIDE RECORDS SUMMARY | 2024-06-19 00:20 | XMS_ITS | Encounter Summary ---
Author Organization [facility] [place] [address] Care Team Providers Care Software Support Technician Name Role Phone Jennifer Anaya APRN Primary Care Provider [phone]- [phone] Encounter Details Date Type Department Care Team (Late st Contact Info) Description 11/20/2019 Ref[place] [address] Isaiah Mcpherson MD [facility] [place] [address] Social History Tobacco Use Types Packs/Day Years [...] 1:00 PM EDT Office [place] [address] Isaiah Mcpherson MD [facility] [place] [address] documented as of this encounter Visit Diagnoses Not on filedocumented in this encounter Care Teams Software Support Technician Relationship Specialty Start Date End Date Jennifer [place] [address] [place] [address] PCP - General Family Medicine 06/03/19 07/05/20 documented as of this encounter
--- OUTSIDE RECORDS SUMMARY | 2024-06-19 00:20 | XMS_ITS | Encounter Summary ---
Author Organization [facility] [place] [address] Care Team Providers Care Adult Family Home Program Manager Name Role Phone Jennifer Anaya Erlinda HINOJOSA Primary Care Provider [phone]- [phone] Encounter Details Date Type Department Care Team (Late st Contact Info) Description 01/21/2020 [place] [phone] Mckinley Noel Bernice Social History Tobacco Use Types Packs/Day Years Used Date Smoking Tobacco: Former Cigarettes Smokeless Tobacco: Never Comments:8 years ago Sex and Gender Information Value Date Recorded Sex Assigned at Not on file Gender Identity Not on file Sexual Orientation Not on file documented as of this encounter Miscellaneous Notes * Telephone Encounter - Mckinley Noel RPH - 01/21/2020 1:43 PM EDT Good afternoon Team, I am reaching out to you on behalf of one of our mutual patients Crystal Felder. Crystal was recently diagnosed by her PCP with shingles and is currently taking both Humira and methotrexate. Currently she states a number of her sores are still open and oozing and she is taking an acyclovirregimen. We wanted to reach out to the clinic before we sent out her refills to see if you wanted to hold the medications until the sores closed up, or some other amount of time? [place] [phone] or via this message chain! Crystal can be reached at [phone] if you would like to speak to her. Thank you for the help! Mckinley documented in this encounter Plan of Treatment Upcoming Encounters Date Type Department Care Team (Late st Contact Info) Description 07/21/2024 1:00 PM EDT [place] [address] Isaiah Mcpherson MD [facility] [place] [address] documented as of this encounter Goals Goal Patient Goal Type Associated Problems Recent Progress Patient-Stated? Author [facility] Medication Compliance and Understanding Patient Facing Action Plan Not on track( 024 11:36 AM EDT) No Mckinley Noel RPH Note: Reduce Joint damage and flairs, measured by number of office visits for flairs/ x-rays, follow up every 3-6 months documented as of this encounter Visit Diagnoses Not on filedocumented in this encounter Care Teams Adult Family Home Program Manager Relationship Specialty Start Date [place] [address] PCP - General Family Medicine 06/03/19 07/05/20 documented as of this encounter
--- OUTSIDE RECORDS SUMMARY | 2024-06-19 00:20 | XMS_ITS | Encounter Summary ---
Author Organization [facility] [place] [address] Care Team Providers Care Journeyman Lineman Name Role Phone Jennifer Aanya Erlinda HINOJOSA Primary Care Provider [phone]- [phone] Reason for Visit * Reason Comments Medication Management Encounter Details Date Type Department Care Team (Late st Contact Info) Description 12/23/2019 Specialty [place] [phone] George Harrington [facility] Social History Tobacco Use Types Packs/Day Years Used Date Smoking Tobacco: Former Cigarettes Smokeless Tobacco: Never Comments:8 years ago Sex and Gender Information Value Date Recorded Sex Assigned at Not on file Gender Identity Not on file Sexual Orientation Not on file documented as of this encounter Progress Notes * George Harrington RPH - 12/23/2019 11:37 AM EST Clinical Management Plan: Refill Specialty Pharmacy Consultation; George Harrington Bernice Comprehensive Medication Management (CMM) Crystalantonio Fleder MsPaulino Felder is a 54 y.o. (1965) [...] Known Allergies Medication Reconciliation Discrepancies (compared to [facility] med list) - none New medications: no [...] were made at the appointment and that [facility] is providing recommendations (summary located at top of note) for provider review and follow up. George Harrington RPH 12/23/19 11:37 AM documented in this encounter Plan of Treatment Upcoming Encounters Date Type Department Care Team (Late st Contact Info) Description 07/21/2024 1:00 PM EDT [place] [address] Isaiah Mcpherson MD [facility] [place] [address] documented as of this encounter Visit Diagnoses Not on filedocumented in this encounter Care Teams Journeyman Lineman Relationship Specialty Start Date End Date Jennifer Anaya APRN [facility] [place] [address] PCP - General Family Medicine 06/03/19 07/05/20 documented as of this encounter
--- OUTSIDE RECORDS SUMMARY | 2024-06-19 00:20 | XMS_ITS | Encounter Summary ---
Author Organization [facility] [place] [address] Care Team Providers Care Manager Port Name Role Phone Jennifer Anaya Erlinda HINOJOSA Primary Care Provider [phone]- [phone] Reason for Visit * Reason Comments Medication Management Patient Education Encounter Details Date Type Department Care Team (Late st Contact Info) Description 06/16/2019 Specialty [place] [address] Kell England [facility] Social History Tobacco Use Types Packs/Day Years Used Date Smoking Tobacco: Former Cigarettes Smokeless Tobacco: Never Comments:8 years ago Sex and Gender Information Value Date Recorded Sex Assigned at Not on file Gender Identity Not on file Sexual Orientation Not on file documented as of this encounter Progress Notes * Kell England Bernice - 06/16/2019 3:16 PM EDT Specialty Pharmacy Consultation; Kell England [facility] Comprehensive Medication Management (CMM) Crystal Jaramillo Bradford Diagnosis: Rheumatoid Arthritis Therapy Start Date: Fall 2010 Contact in person or via telephone:telephone Ms. Crystal Felder is a 54 y.o. [...] the Clinical Assessment? Yes Summary and Recommendations: I spoke with Crystal Felder a 54 y.o. female regarding a 6 month follow up on her Humira. The patient had been on Humira in the past, but stopped for a short time due to insurance issues. She is happy to be back on the Humira as she feels her symptoms are much less while on it. I reviewed the patients allergies, medications and medical conditions with no changes to note. I reviewed the injection process with the patient. The patient states that she is comfortable with injecting herself. I confirmed that patient rotates injection sites. Patient is aware to let injection sit at room temperaturefor 30 minutes before injecting however doesn't always wait 30 minutes before injecting. The patient states that she doesn't have difficulty remembering which day to inject her medication as she usesa calendar to help her remember. In the past she has been late with injections, which cause her symptoms to worsen so she has been more diligent about injecting on the correct day as of late. I reviewed the side effects with the patient and she does not report experiencing any. I counseled her to get a flu shot in the coming months and she states she always does. I also counseled the patient on the importance of hand washing and doing her best to avoid sick persons especially with flu season approaching. I counseled her to inform her rheumatology doctor of any initiated antibiotic courses. Asfar as her course of treatment goes, the patient states that she is doing well. She rates her quality of life at a 7 and her pain a 2 to 3 (out of 10). She feels she is in a bit of a flare at the moment but otherwise states her symptoms have been mostly stable. I have no recommendations at this time Clinic follow-up needed: no Allergies and Drug intolerance: No Known Allergies Special Dietary or Hydration Requirements: no There is no height or weight on file to calculate BMI. Medication Reconciliation Discrepancies (compared to [facility] med list) no Medication Adherence Patient reported X missed doses in the last month: 0 Any gaps in refill history greater than 2 weeks in the last 3 months: no Demonstrates understanding of importance of adherence: yes Informant: patient Reliability of informant: reliable Provider-estimated medication adherence level: good Reasons for non-adherence: no problems identified Adherence tools used: directed education Support network for adherence: family member, healthcare provider Confirmed plan for next specialty medication refill: delivery by pharmacy Medication List: Current Outpatient Medications Medication Sig Note Dispense Refill ??? Adalimumab (HUMIRA PEN) 40 [...] ??? citalopram (CELEXA) 20 mg Tablet daily. 03/05/2017: Received from: External Pharmacy Received Sig: TAKE ONE TABLET BY MOUTH EVERY DAY 2 No current facility-administered medications for this visit. Most Recent Vitals: Ht Readings from Last 1 Encounters: 03/30/19 157.5 cm (5' 2) Wt Readings from Last 3 Encounters: 03/30/19 68.9 kg (151 lb 12.8 oz) 03/03/19 67.6 kg (149 lb) 08/29/18 70.3 kg (155 lb) Temp Readings from Last 3 Encounters: 03/03/19 36.3 ??C (97.4 ??F) 08/29/18 36.6 ??C (97.9 ??F) (Oral) 09/05/16 36.3 ??C (97.3 ??F) BP Readings from Last 3 Encounters: 03/30/19 115/69 03/03/19 117/54 08/29/18 109/60 Pulse Readings from Last 3 Encounters: 03/30/19 58 03/03/19 61 08/29/18 51 Pertinent Lab values: Lab Results Component Value Date NA 139 03/03/2019 K 3.9 03/03/2019 CL 102 03/03/2019 CO2 26 03/03/2019 BUN 13 03/03/2019 CREATININE 0.72 03/03/2019 GLUCOSE 88 03/03/2019 CALCIUM 9.2 03/03/2019 Lab Results Component Value Date ALT 9 03/03/2019 AST 15 03/03/2019 ALKPHOS 61 03/03/2019 BILITOT 0.6 03/03/2019 BILIDIR 0.1 03/05/2017 ALBUMIN 4.2 03/03/2019 PROT 7.1 03/03/2019 Lab Results Component Value Date WBC 4.8 03/03/2019 HGB 12.6 03/03/2019 HCT 37.5 03/03/2019 MCV 96.6 (H) 03/03/2019 PLATELET 280 03/03/2019 No results found for: HA1C Immunization History Administered Date(s) Administered ??? Influenza PF, Split 07/24/2013, 08/11/2014, 09/16/2015 ??? Pneumococcal Polyvalent 23 02/18/2006 ??? Td, adult 02/18/2006 ??? Tuberculin Skin Test, PPD 12/28/2010 Assessment and Recommendations: Title Type of Medication Management: chronic disease management, targeted medication review Referred By: provider Recipient: beneficiary Provider: plan sponsor pharmacist Visit Type: [facility] Follow-up Method of Contact: by telephone Cognitive Ability: good Cognitive Impairment Status Verified this Year: no Drug Interactions Provided the patient with educational material regarding drug interactions: yes Patient Counseling Counseled the patient on the following: reviewed medication changes since last visit, medication safety precautions education provided, drug interaction education provided to patient, doses and administration discussed, safe handling, storage, and disposal discussed, possible adverse effects and management discussed, possible drug and prescription drug interactions discussed, possible drug and OTC drug and food interactions discussed, lab monitoring and follow-up discussed, cost of medications and cost implications discussed, adherence and missed doses discussed, pharmacy contact information discussed, monitoring medication discussed, over the counter products discussed, self-monitoring discussed, timing of medications discussed, lifestyle modification education Drug Medication Management Summary Topics discussed: reviewed medication changes since last visit, medication safety precautions education provided, drug interaction education provided to patient, doses and administration discussed, safe handling, storage, and disposal discussed, possible adverse effects and management discussed, possible drug and prescription drug interactions discussed, possible drug and OTC drug and food interactions discussed, lab monitoring and follow-up discussed, cost of medications and cost implications discussed, adherence and missed doses discussed, pharmacy contact information discussed, monitoring medication discussed, over the counter products discussed, self-monitoring discussed, timing of medications discussed, lifestyle modification education Time spent: 16-30 min Treatment Outcomes 06/16/2019 1521 Disease progression: Stable Patient Overall Status: Stable [...] frequency and method Handling, storage, and disposal of the medication Relevant lab data Patient verbalizes understanding and is able to read-back instructions on self-administration/injection, proper storage, drug stability, importance of adherence and management strategies, side effectavoidance and mitigation strategies, and interruptions in therapy: Yes Economic Assessment: Patient is agreeable to medication copay: yes Copay Amount: $3.00 Day Supply: 28 Date Needed: 06/21 Copay assistance required: no Physical Assessment: Functional limitations identified: no Is patient a fall risk: no Cognitive limitations identified such as orientation, memory, reasoning or judgement: no Other: no Social Assessment: Does the patient have a primary career services manager? no Patient has emergency contact on file: Yes Does patient need referral to manager social work: No Does patient need referral to advocacy group: No Physical and Home Health Assessment: Is the patient able to store their medication as directed? Yes Is the patient in a safe home environment? Yes Do you have a support network? Yes Reviewed potential home safety hazards: Yes Therapy Assessment: Appropriate Therapy: Yes Current Medication Dosing/Route/Frequency: Humira 40mg/0.8ml PNKT inject the contents of one syringe subcutaneously every 14 days Effective: yes - patient feels stable and not worse Current joints affected: hands and wrists Current pain rating (1-10): 2-3 Estimated duration of morning joint stiffness: yes, lasts until she gets herself moving ~1 hour Estimated number of recent flares: yes - feels like she is having a small flare now Recent systemic corticosteroid use: no Patient experienced change in condition that affects treatment: no Patient experienced side effects from medication: no Occurrence of recent infections: no Administration issues identified: no Rotation of injection sites: Yes Medication room temperature prior to injection: Yes Patient Goals: Patient's specific desired goal: Patient hopes to see relief in current RA flare Measured by: Joint pain (pain scale), areas affected, estimated flares Time-frame to meet goal: 3 months Is the patient on track to achieve goals of therapy? yes Additional care/services needed: no Educational information or adherence tools provided: No Additional equipment/supplies required: no Care Plan Reviewed and Approved by both Pharmacist and Patient: Yes Did Care Plan Change? No Informed patient of specialty pharmacy services: Yes -Patient received welcome packet: Yes Date Received: 03/30/19 Delivery Method: mail -Patient returned signed Rights & Responsibilities: Yes Date Received: 03/30/19 Delivery Method: mail -Patient is aware a licensed pharmacist is available 24 hours a day, 7 days a week to discuss medication-related questions or concerns: Yes -Patient verbalizes understanding of education on the common side effect profile of the medication:Yes -The patient is able to call 911 or seek urgent care if signs/symptoms of allergy or harmful adverse reactions occur: Yes Patient Satisfaction with Therapy: yes - Patient feels she is doing well on Humira, feels she may be in a small flare as of now but states she is not getting worse Patient understands no changes to current drug regimen were made at the appointment and that [facility] isproviding recommendations (summary located at top of note) for provider review and follow up. Kell England RPH 06/16/19 3:21 PM documented in this encounter Plan of Treatment Upcoming Encounters Date Type Department Care Team (Late st Contact Info) Description 07/21/2024 1:00 PM EDT Office [place] [address] Isaiah Mcpherson MD [facility] [place] [address] documented as of this encounter Visit Diagnoses Not on filedocumented in this encounter Care Teams Manager Port Relationship Specialty Start Date End Date Jennifer Anaya APRN [facility] [place] [address] PCP - General Family Medicine 06/03/19 07/05/20 documented as of this encounter
--- OUTSIDE RECORDS SUMMARY | 2024-06-19 00:20 | XMS_ITS | Encounter Summary ---
Author Organization [facility] [place] [address] Care Team Providers Care Information Resources Director Name Role Phone JosePing Maddie HINOJOSA Primary Care Provider [phone] Encounter Details Date Type Department Care Team (Late st Contact Info) Description 05/27/2019 Ancillary Procedure [place] [address] [facility] [address] Social History Tobacco Use Types Packs/Day Years [...] 1:00 PM EDT Office [place] [address] [facility] [place] [address] documented as of this encounter Procedures Procedure Name Priority Date/Time Associated Diagnosis Comments FILM LIBRARY STORAGE ONLY MR SPINE Routine 05/27/2019 12:00 AM EDT documented in this encounter Results * Film Library- Storage Only MR Spine (05/27/2019 12:00 AM EDT) Narrative [facility] - 06/02/2019 8:10 PM EDT This exam is auto-finalizing. It's purpose is for storage only. Martin Thorpe MD IMG FILM LIBRARY ORD ERABLES [place]OB [place], [place] documented in this encounter Visit Diagnoses Not on filedocumented in this encounter Care Teams Information Resources Director Relationship Specialty Start Date End Date Ping Garcia APRN [address] [place] [address] PCP - General Family Medicine 01/04/17 06/02/19 documented as of this encounter
--- OUTSIDE RECORDS SUMMARY | 2024-06-19 00:20 | XMS_ITS | Encounter Summary ---
Author Organization [facility] [place] [address] Care Team Providers Care Senior Sales Operations Analyst Name Role Phone Purnima Anayakirstin Coffey APRN Primary Care Provider [phone]- [phone] Reason for Visit * Auth/Cert Specialty Diagnoses / Procedures Referred By Chris t Referred To Contact Diagnoses Request coccygeal nerve block for coccydynia. Procedures PRO INJECT NERV BLCK, OTHR PERIPH NERV NERVE BLOCK, OTHER PERIPHERAL NERVE OR BRANCH (WRVU 0.75) Referral ID Status Reason Start Date Expiration Date Visits Re quested Visits Authorized [id number] 1 1 Encounter Details Date Type Department Care Team (Late st Contact Info) Description 09/30/2019 1:00 PM EST Ancillary [place] [address] Siva Schofield [facility] [address] Pain Social History Tobacco Use Types Packs/Day Years [...] 1:00 PM EDT Office [place] [address] Isaiah Mcpherson MD [facility] [place] [address] documented as of this encounter Procedures Procedure Name Priority Date/Time Associated Diagnosis Comments FILM LIBRARY STORAGE ONLY PAIN CLINIC C ARM Routine 10/05/2019 4:48 PM EST Pain documented in this encounter Results * Film Library- Storage Only pain Clinic C-Arm (10/05/2019 4:48 PM EST) Narrative [facility] - 10/05/2019 4:48 PM EST See PACS for result report. Siva Sierra DO [facility] FILM LIBRARY ORD ERABLES [place], [place] documented in this encounter Visit Diagnoses Diagnosis Pain Generalized pain documented in this encounter Care Teams Senior Sales Operations Analyst Relationship Specialty Start Date End Date [place] [address] [place] [address] PCP - General Family Medicine 06/03/19 07/05/20 documented as of this encounter
--- OUTSIDE RECORDS SUMMARY | 2024-06-19 00:20 | XMS_ITS | Encounter Summary ---
Author Organization [facility] [place] [address] Care Team Providers Care Seafood Packer Name Role Phone Jennifer Anaya Erlinda HINOJOSA Primary Care Provider [phone]- [phone] Reason for Visit * Reason Comments Medication Management Patient Education Encounter Details Date Type Department Care Team (Late st Contact Info) Description 01/21/2020 Specialty [place] [address] Mckinley Noel [facility] Social History Tobacco Use Types Packs/Day Years Used Date Smoking Tobacco: Former Cigarettes Smokeless Tobacco: Never Comments:8 years ago Sex and Gender Information Value Date Recorded Sex Assigned at Not on file Gender Identity Not on file Sexual Orientation Not on file documented as of this encounter Progress Notes * Mckinley Noel [facility] - 01/21/2020 2:45 PM EDT Clinical Management Plan: Refill Specialty Pharmacy Consultation; Mckinley Noel [facility] Comprehensive Medication Management (CMM) Crystal Felder MsPaulino Felder is a 54 y.o. (1965) female who was contacted in regard to a specialty medication refill reminder. Spoke with patient regarding HUMIRA. A review of the medication therapy was performed. The medication was Refilled as scheduled, and all medication related questions and concernswere addressed. The specialty pharmacy staff will follow up with the patient 5-7 days prior to next refill. Was a change made to the Care Plan: yes - patient has shingles If yes, should the medication be held: Yes, Candy (IVANNA) will be reaching out to the patient with thehold parameters Assessment and Recommendations: Title Type of Medication Management: chronic disease management, targeted medication review Referred By: pharmacist Recipient: beneficiary Provider: pharmacist - other [facility] Follow-[facility] Method of Contact: by telephone Cognitive Ability: good Cognitive Impairment Status Verified this Year: no Allergies and Drug intolerance: No Known Allergies Medication Reconciliation Discrepancies (compared to [facility] med list) -Acyclovir 800mg New medications: yes - acyclovir New medical conditions: yes - Shingles New allergies: no Adherence: Medication Adherence Patient [...] network for adherence: family member, healthcare provider Are you experiencing any side effects from your medications? no Pt understands no changes to current drug regimen were made at the appointment and that [facility] is providing recommendations (summary located at top of note) for provider review and follow up. Mckinley Noel RPH 01/21/20 2:49 PM documented in this encounter Plan of Treatment Upcoming Encounters Date Type Department Care Team (Late st Contact Info) Description 07/21/2024 1:00 PM EDT Office [place] [address] Isaiah Mcpherson MD [facility] [place] [address] documented as of this encounter Goals Goal Patient Goal Type Associated Problems Recent Progress Patient-Stated? Author [facility] Medication Compliance and Understanding Patient Facing Action Plan Not on track( 024 11:36 AM EDT) No Mckinley Noel RPH Note: Reduce Joint damage and flairs, measured by number of office visits for flairs/ x-rays, follow up every 3-6 months documented as of this encounter Visit Diagnoses Not on filedocumented in this encounter Care Teams Seafood Packer Relationship Specialty Start Date End Date Jennifer [place] [address] [place] [address] PCP - General Family Medicine 06/03/19 07/05/20 documented as of this encounter
--- OUTSIDE RECORDS SUMMARY | 2024-06-19 00:20 | XMS_ITS | Encounter Summary ---
[facility] [place] [address] Care Team Providers Care Flying I Instructor Name Role Phone Héctor Jennifer Erlinda HINOJOSA Primary Care Provider [phone]- [phone] Encounter Details Date Type Department Care Team (Late st Contact Info) Description 04/28/2020 [place] [id number] Manisha Kaur, [facility] Social History Tobacco Use Types Packs/Day Years Used Date Smoking Tobacco: Former Cigarettes Smokeless Tobacco: Never Comments:8 years ago Sex and Gender Information Value Date Recorded Sex Assigned at Not on file Gender Identity Not on file Sexual Orientation Not on file documented as of this encounter Miscellaneous Notes * Telephone Encounter - Manisha Kaur - 04/28/2020 4:17 PM EDT Clinical Management Plan: Refill Specialty [...] Allergies Medication Reconciliation Discrepancies (compared to [facility] med list) No New medications: No New medical conditions: No New allergies: No Adherence: Any missed doses? No Are you experiencing any side effects from your medications? No Patient understands no changes to current drug regimen were made.. Manisha Kaur 04/28/20 4:17 PM documented in this encounter Plan of Treatment Upcoming Encounters Date Type Department Care Team (Late st Contact Info) Description 07/21/2024 1:00 PM EDT Office [place] [address] Isaiah Mcpherson MD [facility] [place] [address] documented as of this encounter Goals Goal Patient Goal Type Associated Problems Recent Progress Patient-Stated? Author [facility] Medication Compliance and Understanding Patient Facing Action Plan Not on track( 024 11:36 AM EDT) No Mckinley Noel, [facility] Note: Reduce Joint damage and flairs, measured by number of office visits for flairs/ x-rays, follow up every 3-6 months documented as of this encounter Visit Diagnoses Not on filedocumented in this encounter Care Teams Flying I Instructor Relationship Specialty Start Date End Date Jennifer Anaya APRN [facility] [place] [address] PCP - General Family Medicine 06/03/19 07/05/20 documented as of this encounter
--- OUTSIDE RECORDS SUMMARY | 2024-06-19 00:20 | XMS_ITS | Encounter Summary ---
Author Organization [facility] [place] [place] [address] Care Team Providers Care Cardiothoracic Anesthesia Technician Name Role Phone Jennifer Anaya Erlinda HINOJOSA Primary Care Provider +1- [phone] Reason for Visit * Reason Comments Medication Management Patient Education Encounter Details Date Type Department Care Team (Late st Contact Info) Description 11/27/2019 Specialty [place] [address] Marylin Tatum [facility] Social History Tobacco Use Types Packs/Day Years Used Date Smoking Tobacco: Former Cigarettes Smokeless Tobacco: Never Comments:8 years ago Sex and Gender Information Value Date Recorded Sex Assigned at Not on file Gender Identity Not on file Sexual Orientation Not on file documented as of this encounter Progress Notes * Marylin Buckley RPH - 11/27/2019 1:33 PM EST Specialty Pharmacy Consultation; Marylin Buckley RPH Comprehensive Medication Management (CMM) Crystal Jaramillo Bradford Diagnosis: Rheumatoid Arthritis Therapy Start Date: Fall 2010 Contact in person or via telephone: Telephone Ms. Crystal Felder is a 54 y.o. [...] the Clinical Assessment? Yes Summary and Recommendations: Crystal Felder is a pleasant 54 y.o. female who was contacted for a consultation on Humira. Despitestill having pain in her hands and legs (which the patient noted gets worse with poor weather), overall the patient is improved on Humira. Her provider, Dr. Mcpherson, will be notified that she has self-discontinued her methotrexate because she doesn't want to experience the way it makes her feel. Crystal was nervous about Dr. Mcpherson finding this out, and states that she will restart soon. Further, Crystal asked if pain in the front muscle of her legs was somehow connected to her Humira injections. After reviewing the patients profile and the timing of the symptoms in relation to injection, it was discussed that it is more likely a symptom related to her medical conditions (fibromyalgia or rheumatoid arthritis) and not likely to do with the Humira. The patient was able to verbalize understanding of the directions, storage requirements, clinical rationale, and possible adverse events of the medication. Proper injection technique was reviewed including rotation of injection sites, storage, and safe disposal of injection device. Allergies, medications, and medical conditions were reviewed at length including review for possible contraindications and interactions. The patient was informed of the variety of services that the Specialty Pharmacywill provide to them as one of our patients. Clinic follow-up needed: At discretion of clinic. Allergies and Drug intolerance: No Known Allergies Special Dietary or Hydration Requirements: no There is no height or weight on file to calculate BMI. Medication Reconciliation Discrepancies (compared to [facility] med list) no Medication Adherence Patient reported [...] Refills needed for supportive medications: not needed Medication List: Current Outpatient Medications Medication Sig Note Dispense Refill ??? Adalimumab (Humira Pen) 40 mg/0.8 mL Pen Injector Kit Inject 0.8 mLs subcutaneously every 14 days. Inject the contents of one pen (40 mg) subcutaneously once every 14 days. 2 Pen 5 ??? folic acid (FOLVITE) 1 mg [...] Vitals: Ht Readings from Last 1 Encounters: 09/30/19 157.5 cm (5' 2) Wt Readings from Last 3 Encounters: 09/30/19 68 kg (150 lb) 06/30/19 68 kg (150 lb) 06/26/19 68 kg (150 lb) Temp Readings from Last 3 Encounters: 03/03/19 36.3 ??C (97.4 ??F) 08/29/18 36.6 ??C (97.9 ??F) (Oral) 09/05/16 36.3 ??C (97.3 ??F) BP Readings from Last 3 Encounters: 09/30/19 135/89 06/30/19 (!) 136/106 06/26/19 138/60 Pulse Readings from Last 3 Encounters: 06/26/19 61 03/30/19 58 03/03/19 61 Pertinent Lab values: Lab Results Component Value [...] Provider: plan sponsor pharmacist Visit Type: [facility] Method of Contact: by telephone Cognitive [...] interactions discussed, lab monitoring and follow-up discussed, therapeutic rationale discussed, cost of medications and cost implications discussed, adherence and missed doses discussed, pharmacy contact information discussed, health goals discussed, monitoring medication discussed, over the counter products discussed, preventative care discussed, recommendations to doctor discussed, reminder to refill or pick pulling machine tender medication discussed, self-monitoring discussed, start medication discussed, stop medication discussed, timing of medications discussed, vaccination discussed, lifestyle modification education, referral needs discussed Drug Medication Management Summary Topics discussed: reviewed medication changes since last visit, medication safety precautions education provided, drug interaction education provided to patient, doses and administration discussed, safe handling, storage, and disposal discussed, possible adverse effects and management discussed, possible drug and prescription drug interactions discussed, possible drug and OTC drug and food interactions discussed, lab monitoring and follow-up discussed, therapeutic rationale discussed, cost of medications and cost implications discussed, adherence and missed doses discussed, pharmacy contact information discussed, health goals discussed, monitoring medication discussed, over the counter products discussed, preventative care discussed, recommendations to doctor discussed, reminder to refill or pick pulling machine tender medication discussed, self-monitoring discussed, start medication discussed, stop medication discussed, timing of medications discussed, vaccination discussed, lifestyle modification education, referral needs discussed Time spent: 31-45 min Treatment Outcomes No data found in the [...] use oldest product first Relevant lab data Patient verbalizes understanding and is able to read-back instructions on self-administration/injection, proper storage, drug stability, importance of adherence and management strategies, side effectavoidance and mitigation strategies, and interruptions in therapy: Yes Economic Assessment: Patient is agreeable to medication copay: yes Copay Amount: 0.00 Day Supply: 28 days Date Needed: 11/27/2019 Copay assistance required: no Physical Assessment: Functional limitations identified: yes - Does have trouble walking Is patient a fall risk: no Cognitive limitations identified such as orientation, memory, reasoning or judgement: yes - Did appear confused; stated she needed her medication to be shipped today but it was shipped four days ago Other: no Social Assessment: Does the patient have a primary career development specialist? no Patient has emergency contact on file: Yes Does patient need referral to social welfare research worker: No Does patient need referral to advocacy group: No Physical and Home Health Assessment: Is the patient able to store their medication as directed? Yes Is the patient in a safe home environment? Yes Do you have a support network? Yes Reviewed potential home safety hazards: Yes Therapy Assessment: Appropriate Therapy: Yes Current Medication Dosing/Route/Frequency: Humira 40 mg subcutaneously once every 14 days Effective: yes - Patient notes some symptom improvement Current joints affected: hands, fingers, legs Current pain rating (1-10): NA Estimated duration of morning joint stiffness: All day Estimated number of recent flares: yes - Whenever there is winter storm Recent systemic corticosteroid use: no Patient experienced change in condition that affects treatment: no Patient experienced side effects from medication: no Occurrence of recent infections: no Administration issues identified: no Rotation of injection sites: Yes Medication room temperature prior to injection: Yes Additional care/services needed: yes - Adherence counseling from provider in regards to methotrexate Educational information or adherence tools provided: Yes Additional equipment/supplies required: no Care Plan Reviewed and Approved by both Pharmacist and Patient: Yes Did Care Plan Change? No Informed patient of specialty pharmacy services: Yes -Patient received welcome packet: Yes Date Received: 03/2019 Delivery Method: Mail -Patient returned signed Rights & Responsibilities: Yes Date Received: 03/2019 Delivery Method: Mail -Patient is aware a [...] reactions occur: Yes Patient Satisfaction with Therapy: Yes Patient understands no changes to current drug regimen were made at the appointment and that [facility] isproviding recommendations (summary located at top of note) for provider review and follow up. Marylin Buckley RPH 11/27/19 1:34 PM documented in this encounter Plan of Treatment Upcoming Encounters Date Type Department Care Team (Late st Contact Info) Description 07/21/2024 1:00 PM EDT Office [place] [address] Isaiah Mcpherson MD [facility] [place] [address] documented as of this encounter Visit Diagnoses Not on filedocumented in this encounter Care Teams Cardiothoracic Anesthesia Technician Relationship Specialty Start Date End Date Jennifer Anaya APRN [facility] [place] [address] PCP - General Family Medicine 06/03/19 07/05/20 documented as of this encounter
--- OUTSIDE RECORDS SUMMARY | 2024-06-19 00:20 | XMS_ITS | Encounter Summary ---
Author [facility] [place] [address] Care Team Providers Care Fluorescent Solution Mixer Name Role Phone Jennifer Anaya Erlinda HINOJOSA Primary Care Provider [phone]- [phone] Reason for Visit * Reason Comments Medication Management Encounter Details Date Type Department Care Team (Late st Contact Info) Description 07/27/2019 Specialty [place] [id number] George Harrington [facility] Social History Tobacco Use Types Packs/Day Years Used Date Smoking Tobacco: Former Cigarettes Smokeless Tobacco: Never Comments:8 years ago Sex and Gender Information Value Date Recorded Sex Assigned at Not on file Gender Identity Not on file Sexual Orientation Not on file documented as of this encounter Progress Notes * George Harrington [facility] - 07/27/2019 10:27 AM EDT Clinical Management Plan: Refill Specialty Pharmacy Consultation; George Harrington [facility] Comprehensive Medication Management (CMM) Crystal Felder [...] were made at the appointment and that [facility] is providing recommendations (summary located at top of note) for provider review and follow up. George Harrington RPH 07/27/19 10:28 AM documented in this encounter Plan of Treatment Upcoming Encounters Date Type Department Care Team (Late st Contact Info) Description 07/21/2024 1:00 PM EDT Office [place] [address] Isaiah Mcpherson MD [facility] [place] [address] documented as of this encounter Visit Diagnoses Not on filedocumented in this encounter Care Teams Fluorescent Solution Mixer Relationship Specialty Start Date End Date Jennifer Anaya APRN [facility] [place] [address] PCP - General Family Medicine 06/03/19 07/05/20 documented as of this encounter
--- OUTSIDE RECORDS SUMMARY | 2024-06-19 00:20 | XMS_ITS | Encounter Summary ---
Author Organization [facility] [place] [address] Care Team Providers Care End Finder Twisting Department Name Role Phone Jennifer Anaya ASHISH Primary Care Provider +1- [phone] Encounter Details Date Type Department Care Team (Late st Contact Info) Description 09/28/2019 Telephone [facility] [place] [address] Steve Yusuf RN Social History Tobacco Use Types Packs/Day Years Used Date Smoking Tobacco: Former Cigarettes Smokeless Tobacco: Never Comments:8 years ago Sex and Gender Information Value Date Recorded Sex Assigned at Not on file Gender Identity Not on file Sexual Orientation Not on file documented as of this encounter Miscellaneous Notes * Telephone Encounter - Steve Yusuf RN - 09/28/2019 8:46 AM EST Crystal Felder :[id number] RN attempted to make a pre procedure call to pt. Only available pt phone # was for a [employer], RN unable to complete pre procedure call. documented in this encounter Plan of Treatment Upcoming Encounters Date Type Department Care Team (Late st Contact Info) Description 07/21/2024 1:00 PM EDT Office [place] [address] Isaiah Mcpherson MD [facility] [place] [place] [address] documented as of this encounter Visit Diagnoses Not on filedocumented in this encounter Care Teams End Finder Twisting Department Relationship Specialty Start Date End Date Jennifer Anaya APRN [facility] [place] [address] PCP - General Family Medicine 06/03/19 07/05/20 documented as of this encounter
--- OUTSIDE RECORDS SUMMARY | 2024-06-19 00:20 | XMS_ITS | Encounter Summary ---
Author Organization [facility] [place] [address] Care Team Providers Care Manufacturing Machine Operator Name Role Phone JosePing Maddie HINOJOSA Primary Care Provider +1 -[phone] Reason for Visit * Reason Comments Medication Management Encounter Details Date Type Department Care Team (Late st Contact Info) Description 05/18/2019 Specialty [place] [address] George Harrington [facility] Social History Tobacco Use Types Packs/Day Years Used Date Smoking Tobacco: Former Cigarettes Smokeless Tobacco: Never Comments:8 years ago Sex and Gender Information Value Date Recorded Sex Assigned at Not on file Gender Identity Not on file Sexual Orientation Not on file documented as of this encounter Progress Notes * George Harrington RPH - 05/18/2019 4:30 PM EDT Clinical Management Plan: Refill Specialty Pharmacy Consultation; George Harrington [facility] Comprehensive Medication Management (CMM) Crystal [...] patient 5-7 days prior to next refill. This patient was due for a six-month follow-up at time of her call-back however was not transferredto a pharmacist for this assessment. We will continue outreach for this purpose until next refill reminder call. Was a change made to the Care Plan: no Assessment and Recommendations: Title Cognitive Ability: good Cognitive Impairment Status Verified this Year: no Allergies and Drug intolerance: No Known Allergies Medication Reconciliation Discrepancies (compared to [facility] med list) - none New medications: no [...] were made at the appointment and that [facility] is providing recommendations (summary located at top of note) for provider review and follow up. George Harrington RPH 05/18/19 4:30 PM documented in this encounter Plan of Treatment Upcoming Encounters Date Type Department Care Team (Late st Contact Info) Description 07/21/2024 1:00 PM EDT [place] [address] Isaiah Mcpherson MD [facility] [place] [address] documented as of this encounter Visit Diagnoses Not on filedocumented in this encounter Care Teams Manufacturing Machine Operator Relationship Specialty Start Date End Date Ping Garcia, ASHISH [address] [place] [address] PCP - General Family Medicine 01/04/17 06/02/19 documented as of this encounter
--- OUTSIDE RECORDS SUMMARY | 2024-06-19 00:20 | XMS_ITS | Encounter Summary ---
Author Organization [facility] [place] [address] Care Team Providers Care Military Analyst Name Role Phone Anaya Jennifer Coffey APRN Primary Care Provider +1- [phone] Reason for Visit * Auth/Cert Specialty Diagnoses / Procedures Referred By Contgarrett t Referred To Contact Diagnoses Request coccygeal nerve block for coccydynia. Procedures PRO INJECT NERV BLCK, OTHR PERIPH NERV NERVE BLOCK, OTHER PERIPHERAL NERVE OR BRANCH (WRVU 0.75) Referral ID Status Reason Start Date Expiration Date Visits Re quested Visits Authorized [id number] 1 1 Encounter Details Date Type Department Care Team (Latest Contact Info) Description 09/30/2019 12:17 PM EST - 09/30/2019 1:17 PM EST Hospital [place] [address] [place] [facility] [place] [address] Coccydynia (Primary Dx) Discharge Disposition: Home Social [...] 240 mg/mL solution, , , Once PRN, [place], Mal[place] V, DO, 2 mL at 09/30/19 1310 ??? BUpivacaine (PF) (MARCAINE) 0.25 % (2.5 mg/mL) injection, , , Once PRN, [place], [place] V, DO, 10 mL at 09/30/19 [...] file Gets together: Not on file Attends jehovah's witness service: Not on file Active member of [...] any questions. Sincerely, MALI BANDA DO, MPH Antique Furniture Repairer of Anesthesiology/[facility] [employer] [facility] Advertising Account Manager, Pain Medicine Fellowship Steward/[employer], Functional Taoism Program ABPM&R - Subspecialty board certification in Pain Medicine documented in this encounter Miscellaneous Notes * Op Note - Mali Banda DO - 09/30/2019 1:17 PM EST Pain Management Operative Note Patient Name: Crystal Felder : [id number] MR#: [id number] Case Date: 09/30/2019 Surgeon: Surgeon(s) and Role: * Mali Banda DO - Primary Present on Admission: ??? Coccydynia Postoperative diagnosis: Same Procedure(s) (LRB): NERVE BLOCK, OTHER PERIPHERAL NERVE OR BRANCH (WRVU 0.75) (N/A) GANGLION IMPAR BLOCK PROCEDURE NOTE Ms. Crystal L Felder has been referred to the procedure [...] Ganglion Impar Block in Chronic Coccygodynia: A Financial Aid Administrator Study. Pain Med. 2015 Apr;16(7):1278-81. doi: 10.1111/pme.06670. Epub 2014. Ms. Felder was greeted by [...] - Pain Management CC: [place] [address] documented in this encounter Plan of Treatment Upcoming Encounters Date Type Department Care Team (Late st Contact Info) Description 07/21/2024 1:00 PM EDT Office [place] [address] Isaiah Mcpherson MD [facility] [place] [place] [address] documented as of this encounter Visit Diagnoses Diagnosis Coccydynia- Primary Other disorder of coccyx documented in [...] Routine 1310 (Given - Provid er: [place] V, DO) documented in this encounter Care Teams Military Analyst Relationship Specialty Start Date End Date Jennifer Anaya [place] [address] [place] [address] PCP - General Family Medicine 06/03/19 07/05/20 documented as of this encounter
--- OUTSIDE RECORDS SUMMARY | 2024-06-19 00:20 | XMS_ITS | Encounter Summary ---
Author Organization [facility] [place] [address] Care Team Providers Care Collating Machine Operator Name Role Phone Jennifer Anaya Erlinda HINOJOSA Primary Care Provider +1- [phone] Reason for Visit * Auth/Cert Specialty Diagnoses / Procedures Referred By Chris t Referred To Contact Diagnoses Request coccygeal nerve block for coccydynia. Procedures PRO INJECT NERV BLCK, OTHR PERIPH NERV NERVE BLOCK, OTHER PERIPHERAL NERVE OR BRANCH (WRVU 0.75) Referral ID Status Reason Start Date Expiration Date Visits Re quested Visits Authorized [id number] 1 1 Encounter Details Date Type Department Care Team (Late st Contact Info) Description 06/30/2019 3:30 PM EDT Ancillary [place] [address] [facility] [place] [address] Pain Social History Tobacco Use Types Packs/Day [...] 1:00 PM EDT Office [place] [address] Isaiah Mcpherson MD [facility] [address] documented as of this encounter Procedures Procedure Name Priority Date/Time Associated Diagnosis Comments FILM LIBRARY STORAGE ONLY PAIN CLINIC C ARM Routine 06/30/2019 4:07 PM EDT Pain documented in this encounter Results * Film Library- Storage Only pain Clinic C-Arm (06/30/2019 4:07 PM EDT) Narrative [facility] - 06/30/2019 4:07 PM EDT See PACS for result report. DO KENAN Bhatti FILM LIBRARY ORD ERABLES Performing Organization Address City/State/[facility] Co de Phone Number [place], [place] documented in this encounter Visit Diagnoses Diagnosis Pain Generalized pain documented in this encounter Care Teams Collating Machine Operator Relationship Specialty Start Date End Date Jennifer Anaya APRN [facility] [place] [address] PCP - General Family Medicine 06/03/19 07/05/20 documented as of this encounter
--- OUTSIDE RECORDS SUMMARY | 2024-06-19 00:21 | XMS_ITS | Encounter Summary ---
Author Organization [facility] [place] [address] Care Team Providers Care Power Technician Name Role Phone Ping Garcia APRN Primary Care Provider [phone] -[phone] Reason for Visit * Reason Comments Medication Refill Encounter Details Date Type Department Care Team (Late st Contact Info) Description 02/13/2017 Ref[place] [address] Isaiah Mcpherson MD [facility] [place] [address] Social History Tobacco Use Types Packs/Day Years Used Date Smoking Tobacco: Former Smokeless Tobacco: Never Sex and Gender Information Value Date Recorded Sex Assigned at Not on file Gender Identity Not on file Sexual Orientation Not on file documented as of this encounter Plan of Treatment Upcoming Encounters Date Type Department Care Team (Late st Contact Info) Description 07/21/2024 1:00 PM EDT Office [place] [address] Isaiah Mcpherson MD [facility] [place] [address] documented as of this encounter Visit Diagnoses Not on filedocumented in this encounter Care Teams Power Technician Relationship Specialty Start Date End Date Ping Garcia APRN [address] [place] [address] PCP - General Family Medicine 01/04/17 06/02/19 documented as of this encounter
--- OUTSIDE RECORDS SUMMARY | 2024-06-19 00:21 | XMS_ITS | Encounter Summary ---
Author Organization [facility] [place] [address] Care Team Providers Care Assistant Infant Teacher Name Role Phone Ping Garcia APRN Primary Care Provider +1 -[phone] Reason for Visit * Reason Comments Medication Refill Encounter Details Date Type Department Care Team (Late st Contact Info) Description 01/07/2018 [place] [address] Isaiah Mcpherson MD [facility] [place] [address] Primary osteoarthritis of both hips; Pain in right hip; Fibromyalgia; Rheumatoid arthritis, involving unspecified site, unspecified rheumatoid factor presence; Sacro-iliac pain Social History Tobacco Use Types Packs/Day Years [...] 1:00 PM EDT Office [place] [address] Isaiah Mcpherson MD [facility] [place] [address] documented as of this encounter Visit Diagnoses Diagnosis Primary osteoarthritis of both hips Primary localized osteoarthrosis, pelvic region and thigh Pain in right hip Pain in joint, pelvic region and thigh Fibromyalgia Mylagia and myositis, unspecified Rheumatoid arthritis, involving unspecified site, unspecified rheumatoid factor presence Sacro-iliac pain Disorders of sacrum documented in this encounter Care Teams Assistant Infant Teacher Relationship Specialty Start Date End Date Ping Garcia APRN [address] [place] [address] PCP - General Family Medicine 01/04/17 06/02/19 documented as of this encounter
--- OUTSIDE RECORDS SUMMARY | 2024-06-19 00:21 | XMS_ITS | Encounter Summary ---
Author Organization [facility] Address [facility] [place] [address] Care Team Providers Care Dye Weigher Name Role Phone Ping Garcia APRN Primary Care Provider [phone] [phone] Encounter Details Date Type Department Care Team (Late st Contact Info) Description 03/03/2019 12:52 PM EDT - 03/03/2019 11:59 PM EDT Hospital Encounter XRay at [address] [place] [address] Isaiah Mcpherson MD [facility] [place] [address] Coccyx pain Discharge Disposition: Home Social History Tobacco Use [...] Inject 0.8 mLs subcutaneously every 14 days. 2 kit 5 11/14/2018 05/18/2019 metHOTREXate 2.5 mg Tablet TAKE 8 TABLETS BY MOUTH ONCE WEEKLY, CAN TAKE WITHOUT REGARD TO FOOD CALL CLINIC BEFORE STARTING MEDICATION 104 tablet 3 08/18/2018 04/12/2020 folic acid (FOLVITE) 1 mg Tablet TAKE ONE TABLET BY MOUTH EVERY DAY 90 tablet 3 01/07/2018 04/11/2019 citalopram (CELEXA) 20 mg Tablet daily. 2 01/03/2017 04/24/2022 documented as of this encounter Plan of Treatment Upcoming Encounters Date Type Department Care Team (Late st Contact Info) Description 07/21/2024 1:00 PM EDT Office Visit [place] [address] Isaiah Mcpherson MD [facility] [place] [address] documented as of this encounter Procedures Procedure Name Priority Date/Time Associated Diagnosis Comments XR SACRUM AND COCCYX Routine 03/03/2019 1:12 PM EDT Coccyx pain documented in this encounter Results * XR Sacrum & Coccyx (Generic) (03/03/2019 1:12 PM EDT) Anatomical Region Laterality Modality Pelvis, Hip, L-spine N/A Digital Rad iography Impressions 03/03/2019 2:26 PM EDT FINDINGS/IMPRESSION: There is no acute fracture, no dislocation. Chronic anterior wedging deformity of T11 and T12. Exaggerated kyphosis of the thoracolumbar junction and exaggerated lordosis of the lumbar spine Degenerative changes at L4-L5 and L5-S1 with resulting neural foraminal stenosis at L5-S1. SI joints and the symphysis pubis are intact. Soft tissue structures are unremarkable. Abundant amount of fecal material within the rectosigmoid. Thank you for letting us participate in the care of this patient. For questions regarding this report, please contact the number below. ? Electronically signed by: Astrid Ramos [facility] ([phone]), at 03/03/2019 2:26 PM Narrative 03/03/2019 2:26 PM EDT EXAMINATION: XR SACRUM AND COCCYX (GENERIC), XR LUMBAR SPINE 2 OR 3 VIEWS (GENERIC) CLINICAL HISTORY: Coccygeal pain. ? fracture, etc. TECHNIQUE: Frontal and lateral radiographs of the sacrum and coccyx. And frontal and lateral radiographs of the lumbar spine. COMPARISON: None Procedure Note Astrid Ramos MD - 03/03/2019 EXAMINATION: XR SACRUM AND COCCYX (GENERIC), XR LUMBAR SPINE 2 OR 3VIEWS (GENERIC) CLINICAL HISTORY: Coccygeal pain. ? fracture, etc. TECHNIQUE: Frontal and lateral radiographs of the sacrum and coccyx. And frontaland lateral radiographs of the lumbar spine. COMPARISON: None IMPRESSION FINDINGS/IMPRESSION: There is no acute fracture, no dislocation. Chronic anterior wedgingdeformity of T11 and T12. Exaggerated kyphosis of the thoracolumbar junction and exaggeratedlordosis of the lumbar spine Degenerative changes at L4-L5 and L5-S1 with resulting neural foraminalstenosis at L5-S1. SI joints and the symphysis pubis are intact. Soft tissue structures are unremarkable. Abundant amount of fecal material within the rectosigmoid. Thank you for letting us participate in the care of this patient. Forquestions regarding this report, please contact the number below. Electronically signed by: Astrid Ramos [facility]([phone]), at 03/03/2019 2:26 PM Isaiah Mcpherson MD IMG DX ORDERABLES documented in this encounter Visit Diagnoses Diagnosis Coccyx pain Other disorder of coccyx documented in this encounter Care Teams Dye Weigher Relationship Specialty Start Date End Date Ping Garcia, ASHISH [address] [place] [id number] PCP - General Family Medicine 01/04/17 06/02/19 documented as of this encounter
--- OUTSIDE RECORDS SUMMARY | 2024-06-19 00:21 | XMS_ITS | Encounter Summary ---
Author Organization [facility] [place] [address] Care Team Providers Care International Project Engineer Name Role Phone JosePing Maddie HINOJOSA Primary Care Provider [phone] [phone] Reason for Visit * Reason Comments Medication Management Encounter Details Date Type Department Care Team (Late st Contact Info) Description 02/24/2019 Specialty [place] [address] Avni Boland RPH Social History Tobacco Use Types Packs/Day Years Used Date Smoking Tobacco: Former Cigarettes Smokeless Tobacco: Never Comments:8 years ago Sex and Gender Information Value Date Recorded Sex Assigned at Not on file Gender Identity Not on file Sexual Orientation Not on file documented as of this encounter Progress Notes * Avni Boland RPH - 02/24/2019 3:18 PM EDT Clinical Management Plan: Refill Specialty Pharmacy Consultation; Avni Boland RPH Comprehensive Medication Management (CMM) Crystal Felder MsPaulino Felder is a 54 y.o. (1965) female who was contacted in regard to a specialty medication refill reminder. Spoke with patient regarding adalimumab. A review of the medication therapy was [...] plan sponsor pharmacist Visit Type: [facility] [place] Method of Contact: by telephone Cognitive Ability: good Cognitive Impairment Status Verified this Year: no Allergies and Drug intolerance: No Known Allergies Medication Reconciliation Discrepancies (compared to [facility] med list) -none New medications: no New medical conditions: no New allergies: no Adherence: Medication Adherence Patient reported X missed doses in the last month: 0 Any gaps in refill history greater than 2 weeks in the last 3 months: no Demonstrates understanding of importance of adherence: yes Informant: patient Reliability of informant: fairly reliable Provider-estimated medication adherence level: 90-100% Reasons [...] were made at the appointment and that [facility] is providing recommendations (summary located at top of note) for provider review and follow up. Avni Boland RPH 02/24/19 3:19 PM documented in this encounter Plan of Treatment Upcoming Encounters Date Type Department Care Team (Late st Contact Info) Description 07/21/2024 1:00 PM EDT Office Visit [place] [address] Isaiah Mcpherson MD [facility] [place] [address] documented as of this encounter Visit Diagnoses Not on filedocumented in this encounter Care Teams International Project Engineer Relationship Specialty Start Date End Date Ping Garcia APRN [address] [place] [address] PCP - General Family Medicine 01/04/17 06/02/19 documented as of this encounter
--- OUTSIDE RECORDS SUMMARY | 2024-06-19 00:21 | XMS_ITS | Encounter Summary ---
Author Organization [facility] [place] [address] Care Team Providers Care Craps Manager Name Role Phone JosePing ASHISH Primary Care Provider [phone] [phone] Reason for Visit * Reason Comments Medication Management Encounter Details Date Type Department Care Team (Late st Contact Info) Description 01/16/2019 Specialty Pharmacy [place] [id number] George Harrington [facility] Social History Tobacco Use Types Packs/Day Years Used Date Smoking Tobacco: Former Cigarettes Smokeless Tobacco: Never Comments:8 years ago Sex and Gender Information Value Date Recorded Sex Assigned at Not on file Gender Identity Not on file Sexual Orientation Not on file documented as of this encounter Progress Notes * George Harrington [facility] - 01/16/2019 10:53 AM EDT Clinical Management Plan: Refill Specialty Pharmacy Consultation; George Harrington [facility] Comprehensive Medication Management (CMM) Crystal Felder Ms. Crystal Felder is a 53 y.o. (1965) female who was contacted in [...] Known Allergies Medication Reconciliation Discrepancies (compared to [facility] med list) - none New medications: no [...] made at the appointment and that [facility] is providing recommendations (summary located at top of note) for provider review and follow up. George Harrington RPH 01/16/19 10:53 AM documented in this encounter Plan of Treatment Upcoming Encounters Date Type Department Care Team (Late st Contact Info) Description 07/21/2024 1:00 PM EDT Office Visit [place] [address] Isaiah Mcpherson MD [facility] [place] [address] documented as of this encounter Visit Diagnoses Not on filedocumented in this encounter Care Teams Craps Manager Relationship Specialty Start Date End Date Ping Garcia APRN [address] [place] [id number] PCP - General Family Medicine 01/04/17 06/02/19 documented as of this encounter
--- OUTSIDE RECORDS SUMMARY | 2024-06-19 00:21 | XMS_ITS | Encounter Summary ---
Author Organization [facility] [place] [address] Care Team Providers Care Vulcanizer Operator Name Role Phone JosePing Maddie HINOJOSA Primary Care Provider [phone] Reason for Visit * Reason Onset Date Comments Prior Authorization 09/30/2017 Encounter Details Date Type Department Care Team (Late st Contact Info) Description 09/30/2017 Telephone [place] [address] Cecelia Mcallister Prior Authorization Social History Tobacco Use Types Packs/Day Years Used Date Smoking Tobacco: Former Cigarettes Smokeless Tobacco: Never Sex and Gender Information Value Date Recorded Sex Assigned at Not on file Gender Identity Not on file Sexual Orientation Not on file documented as of this encounter Miscellaneous Notes * Telephone Encounter - Cecelia Mcallister - 09/30/2017 9:43 AM EST Medication Prior Authorization [place] Medication name/dose/directions: HUMIRA 40MG/0.8ML - EVERY 14 DAYS Rationale for request: RA Health plan: [place]X) Authorizing account manager sales representative name: BLADIMIR Faxed to health plan on: 09/30/17 Health plan decision: APPROVED Quantity approved: 12/25 Authorization number: [id number] Start date: 09/30/17 End date: 09/30/18 documented in this encounter Plan of Treatment Upcoming Encounters Date Type Department Care Team (Late st Contact Info) Description 07/21/2024 1:00 PM EDT Office [place] [address] Isaiah Redmond MD [facility] [place] [address] documented as of this encounter Visit Diagnoses Not on filedocumented in this encounter Care Teams Vulcanizer Operator Relationship Specialty Start Date End Date Ping Garcia APRN [address] [place] [address] PCP - General Family Medicine 01/04/17 06/02/19 documented as of this encounter
--- OUTSIDE RECORDS SUMMARY | 2024-06-19 00:21 | XMS_ITS | Encounter Summary ---
Author Organization [facility] Address [facility] [place] [address] Care Team Providers Care C Programmer Name Role Phone Ping Garcia APRN Primary Care Provider [phone] [phone] Encounter Details Date Type Department Care Team (Late st Contact Info) Description 09/11/2017 12:58 PM EST - 09/11/2017 11:59 PM EST Hospital Encounter XRay at [address] [place] [address] Isaiah Mcpherson MD [facility] [place] [address] Chronic pain of both knees Discharge Disposition: Home Social History Tobacco Use [...] Inject 0.8 mLs subcutaneously every 14 days. 3 kit 1 09/03/2017 03/10/2018 methotrexate 2.5 mg Tablet TAKE EIGHT TABLETS BY MOUTH ONCE WEEKLY, CAN TAKE WITHOUT REGARD TO FOOD, CALL CLINIC BEFORE STARTING MEDICATION 104 tablet 3 08/05/2017 08/18/2018 citalopram (CELEXA) 20 mg Tablet daily. 2 01/03/2017 04/24/2022 meloxicam (MOBIC) 7.5 mg TabletIndications:Rita anshul osteoarthritis of both hips,Pain in right hip,Fibromyalgia,Rheu matoid arthritis, involving unspecified site, unspecified rheumatoid factor presence,Sacro-iliac pain Take 1 tablet by mouth daily. 30 tablet 12 03/05/2017 01/07/2018 folic acid (FOLVITE) 1 mg Tablet TAKE ONE TABLET BY MOUTH EVERY DAY 90 tablet 3 11/06/2016 01/05/2018 documented as of this encounter Plan of Treatment Upcoming Encounters Date Type Department Care Team (Late st Contact Info) Description 07/21/2024 1:00 PM EDT Office Visit Rheumatology at [facility] [place] [address] Isaiah Mcphersno MD [facility] [place] [address] documented as of this encounter Procedures Procedure Name Priority Date/Time Associated Diagnosis Comments XR KNEE AP AND LAT BILAT Routine 09/11/2017 1:10 PM EST Chronic pain of both knees documented in this encounter Results * XR Knee 1-2 Views Bilat (Generic) (09/11/2017 1:10 PM EST) Anatomical Region Laterality Modality Knee Bilateral Digital Radiogra phy Impressions 09/11/2017 1:43 PM EST Mild bilateral medial compartment space narrowing, compatible with mild degenerative change. No acute fracture or dislocation bones of either knee. No joint effusion either knee. Narrative 09/11/2017 1:43 PM EST EXAMINATION: XR KNEE 1-2 VIEWS BILAT (GENERIC) CLINICAL HISTORY: Increasing knee pain. ? OA. TECHNIQUE: 2 views each knee COMPARISON: None FINDINGS: Mild bilateral medial compartment space narrowing, compatible with mild degenerative change. No acute fracture or dislocation bones of either knee. No joint effusion either knee. Procedure Note Schuyler Sim MD - 09/11/2017 EXAMINATION: XR KNEE 1-2 VIEWS BILAT (GENERIC) CLINICAL HISTORY: Increasing knee pain. ? OA. TECHNIQUE: 2 views each knee COMPARISON: None FINDINGS: Mild bilateral medial compartment space narrowing, compatible with mild degenerative change. No acute fracture or dislocation bones of either knee. No joint effusion either knee. IMPRESSION Mild bilateral medial compartment space narrowing, compatible with mild degenerative change. No acute fracture or dislocation bones of either knee. No joint effusion either knee. 1:43 PM Isaiah Mcpherson MD IMG DX ORDERABLES documented in this encounter Visit Diagnoses Diagnosis Chronic pain of both knees documented in this encounter Care Teams C Programmer Relationship Specialty Start Date End Date Ping Garcia, ASHISH [address] [place] [id number] PCP - General Family Medicine 01/04/17 06/02/19 documented as of this encounter
--- OUTSIDE RECORDS SUMMARY | 2024-06-19 00:21 | XMS_ITS | Encounter Summary ---
Author Organization [facility] [place] [address] Care Team Providers Care Clinical Social Worker Name Role Phone Ping Garcia APRN Primary Care Provider [phone] [phone] Encounter Details Date Type Department Care Team (Late st Contact Info) Description 08/29/2018 1:30 PM EDT Office [place] [address] Isaiah Mcpherson MD [facility] [place] [address] Rheumatoid arthritis involving multiple sites with positive rheumatoid factor; Fibromyalgia; Iron deficiency anemia due to chronic blood loss; High risk medication use; Chronic pain of both knees; Primary osteoarthritis of both hips; Anxiety; Primary osteoarthritis of left knee Social History Tobacco Use Types Packs/Day Years Used Date Smoking Tobacco: Former Cigarettes Smokeless Tobacco: Never Comments:8 years ago Sex and Gender Information Value Date Recorded Sex Assigned at Not on file Gender Identity Not on file Sexual Orientation Not on file documented as of this encounter Last Filed Vital Signs Vital Sign Reading Time Taken Comments Blood Pressure 109/60 08/29/2018 1:34 PM EDT Pulse 51 08/29/2018 1:34 PM EDT Temperature 36.6 ??C (97.9 ??F) 08/29/2018 1:34 PM ED T Respiratory Rate - - Oxygen Saturation 98% 08/29/2018 1:34 PM EDT Inhaled Oxygen Concentration - - Weight 70.3 kg (155 lb) 08/29/2018 1:34 PM EDT Height 157.5 cm (5' 2) 08/29/2018 1:34 PM EDT Body Mass Index 28.35 08/29/2018 1:34 PM EDT documented in this encounter Progress Notes * Isaiah Mcpherson MD - 08/29/2018 1:30 PM EDT 2Rheumatology Clinic: Dr. Mcpherson 08/29/2018 [id number] Crystal Felder is seen in follow-up of her rheumatoid arthritis and early osteoarthritis of the knees. She has been having more pain lately, but she is under a lot of stress. Her mother has had some health issues including a DVT for which she continues on anticoagulation, as well as macular degeneration for which she is been having VGEF injections. 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 She is now doing all the cooking that her mother once did. She is also being her mother's eyes, as she put it. That means she is leading her mother around, going up and down the stairs multiple times a day, etc. Withthis, she has had worsening of her left knee pain and she gestures to the medial joint line where she has osteoarthritis on x-ray. She reports that her primary did a cortisone injection a couple of weeks ago but it did not provide any benefit. She is wondering if I could do an injection today. She points out where the injection was done and it looks like a medial approach underneath the patella te ndon with the patient seated. In the meantime, she continues on methotrexate and Humira for her arthritis. She is tolerating bothmedications well. She has not had any significant infections. She admits that she will occasionallymiss a dose here and there, but generally she's been compliant. The same is not for true for the meloxicam. When her prescription ran out recently, she did not bother getting it filled. I pointed outto her that the pain she is experiencing now that left knee is osteoarthritis and not the rheumatoid arthritis and I would expect the meloxicam to be more helpful than the methotrexate or Humira for that. We explained the reasoning behind that. On a social note, in addition to having to take care of her mother, she continues to do work on [employer] business, [employer], which includes a lot of opening and closing of lids, which is painful. This is subtle fleeting pain that she believes is from the wrist, but I suspect might be coming from the basilar thumb joint. 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 She finds that less physically demanding and much more mentally enjoyable. Patient Active Problem List Diagnosis Code ??? [...] G89.29 ??? Chronic throat pain R07.0, G89.29 Medications 08/29/18 1337 Medication Sig Taking? metHOTREXate 2.5 mg Tablet TAKE 8 TABLETS BY MOUTH ONCE WEEKLY, CAN TAKE WITHOUT REGARD TO FOOD CALL CLINIC BEFORE STARTING MEDICATION Yes Adalimumab (HUMIRA PEN) 40 mg/0.8 mL Pen Injector Kit Inject 0.8 mLs subcutaneously every 14 days. Yes folic acid (FOLVITE) 1 mg Tablet TAKE ONE TABLET BY MOUTH EVERY DAY Yes citalopram (CELEXA) 20 mg Tablet daily. Yes Physical Exam: She looks well. She is definitely frustrated by this knee pain. Blood pressure 109/60, pulse 51, temperature 36.6 ??C (97.9 ??F), temperature source Oral, height 157.5 cm (5' 2), weight 70.3 kg (155 lb), SpO2 98 %. myD-H RAPID-3 Responses 05/09/2016 09/05/2016 03/04/2017 09/11/2017 08/29/2018 RAPID-3 Function 1.66 1 2 2 2.66 RAPID-3 Pain 3 2 5.5 3.5 2.5 RADIP-3 Global 3.5 1 5 5 2.5 RAPID-3 Total Scores 8.16 (Moderate) 4 (Low) 12.5 (High) 10.5 (Moderate) 7.66 (Moderate) Skin: Clear. HEENT: Unremarkable. Lungs: Clear. Heart: Regular rhythm and rate without murmur, gallop, or rub. Abdomen: Benign. No masses, tenderness, or organomegaly. Extremities: No edema. Good distal pulses. Musculoskeletal: She has no synovitis in her hands. She really just has mild degenerative changes, except at the first IP joint and the basilar thumb joints, right greater than left. Her MCPs and wrists are definitely spared. I could not reproduce the pain she talked about in her wrists. Her elbowsand shoulders move well. Her hips move well. Her knees have some pain on range of motion, particularly on the left, and that she localizes right to the medial joint line where she has a discrete tender area. There is no significant warmth or effusion in either knee and, other than being painful, range of motion is preserved. Ankles are fine. She has midfoot and distal foot degenerative disease without synovitis. Neuro: Grossly intact. Time Out: We took a time out and verified the patient's identity, and also verified the joint(s) kendal aspirated and/or injected. Procedure: After betadine and alcohol prep, and ethylchloride and lidocaine local, we entered the left knee using a medial approach, obtained a return of synovial fluid, and then injected with 40 mg of Kenalog and 2 cc of Marcaine. The patient tolerated the procedure well. We gave the usual post-injection precautions, including watching for any signs of infection. Assessment: Hopefully the left knee injection will calm things down. If this injection does not work, the next step would probably be a Synvisc injection. If that did not work, we would have to consider an MRI to see if there has been some internal derangement, such as a medial meniscal tear, rthatmight be amenable to arthroscopic surgery. There is no indication that this has anything to do withher rheumatoid arthritis, which seems to be remaining quiet on the current regimen. We were going to check lab work today, but she believes she had a recent set near home. We will check that. If thatis not the case, we'll make sure she gets a set soon. I suggested that she resume the meloxicam. I will see her in follow-up in 6 months, but I asked her to contact us next week and let us know ifthe injection helped. Over 20 minutes of the 25 minute follow-up, prior to the left knee injection, were spent discussingthese problems and their treatment options in vica-oa-bimy counseling. Visit Diagnoses: 1. Rheumatoid arthritis involving multiple sites with positive rheumatoid factor 2. Fibromyalgia 3. Iron deficiency anemia due to chronic blood loss 4. High risk medication use 5. Chronic pain of both knees 6. Primary osteoarthritis of both hips 7. Anxiety documented in this encounter Plan of Treatment Upcoming Encounters Date Type Department Care Team (Late st Contact Info) Description 07/21/2024 1:00 PM EDT Office [place] [address] Isaiah Mcpherson MD [facility] [place] [address] documented as of this encounter Visit Diagnoses Diagnosis Rheumatoid arthritis involving multiple sites with positive rheumatoid factor Fibromyalgia Mylagia and myositis, unspecified Iron deficiency anemia due to chronic blood loss Iron deficiency anemia secondary to blood loss (chronic) High risk medication use Encounter for long-term (current) use of other medications Chronic pain of both knees Primary osteoarthritis of both hips Primary localized osteoarthrosis, pelvic region and thigh Anxiety Anxiety state, unspecified Primary osteoarthritis of left knee Primary localized osteoarthrosis, lower leg documented in this encounter Administered Medications Inactive Administered Medications - up to 3 most recent administrations Medication Order MAR Action Action Date Dose Rate Site triamcinolone acetonide (KENALOG-40) injection 40 mg 40 mg, Intra-articular, ONCE, 1 dose, On Sailaja 09/04/18 at 1715, Routine Given 08/29/2018 2:15 PM EDT 40 mg documented in this encounter Care Teams Clinical Social Worker Relationship Specialty Start Date End Date Ping Garcia APRN [address] [place] [address] PCP - General Family Medicine 01/04/17 06/02/19 documented as of this encounter
--- OUTSIDE RECORDS SUMMARY | 2024-06-19 00:21 | XMS_ITS | Encounter Summary ---
Author Organization [facility] [place] [address] Care Team Providers Care Cutting Table Operator First Name Role Phone Ping Garcia APRN Primary Care Provider [phone] Encounter Details Date Type Department Care Team (Late st Contact Info) Description 09/11/2017 11:30 AM EST Office Visit [place] [address] Isaiah Mcpherson MD [facility] [place] [address] Fibromyalgia; High risk medication use; Iron deficiency anemia due to chronic blood loss; Myalgia; Rheumatoid arthritis involving multiple sites with positive rheumatoid factor; Chronic pain of both knees Social History Tobacco Use Types Packs/Day Years Used Date Smoking Tobacco: Former Cigarettes Smokeless Tobacco: Never Sex and Gender Information Value Date Recorded Sex Assigned at Not on file Gender Identity Not on file Sexual Orientation Not on file documented as of this encounter Last Filed Vital Signs Vital Sign Reading Time Taken Comments Blood Pressure 121/68 09/11/2017 11:24 AM EST Pulse 74 09/11/2017 11:24 AM EST Temperature - - Respiratory Rate 18 09/11/2017 11:24 AM EST Oxygen Saturation 99% 09/11/2017 11:24 AM EST Inhaled Oxygen Concentration - - Weight 71.7 kg (158 lb) 09/11/2017 11:24 AM EST Height 157.5 cm (5' 2) 09/11/2017 11:24 AM EST Body Mass Index 28.9 09/11/2017 11:24 AM EST documented in this encounter Patient Instructions * Patient Instructions* Isaiah Mcpherson MD - 09/11/2017 11:30 AM EST Get labs today at 3L. Call or myDH for results if you don't hear from us by next week. Further recommendations pending results. In meantime, continue current regimen. Follow up in 6 months, but stay in touch. documented in this encounter Progress Notes * Isaiah Mcpherson MD - 09/11/2017 11:30 AM EST Rheumatology Clinic: Dr. Mcpherson 09/11/2017 [id number] Crystal Edmonds is seen in follow-up of her rheumatoid arthritis, early degenerative disease, hypermobility, and soft tissue problems. I last saw her on 03/05/2017. She has been doing poorly lately and she is accompanied by her sister who is advocating for her. The patient describes being extremely fatigued. She has lost her appetite. She sometimes sleeps 18 hours a day. This usually occurs in 3 daystretches and then she feels somewhat better. She has also been having sudden, sharp pains in herwrists and ankles. These generally come on with activity and they are very fleeting. There is no sustained pain in her wrists or ankles. She finds that the wrists are particularly bothersome when sheis trying to do activities at home such as opening jars, as she will have a sharp, sudden pain. At the left ankle, she also has some pain and tenderness at the Achilles insertion on the posterior calcaneus. She continues to complain of her knees, which has been an ongoing problem now over several visits. We examined her last time and the knees actually moved well, In fact, too well, as because of her hypermobility, she is very hyperextensible. But there was absolutely no crepitance and range of motionwas fluid. But the knees continue to bother her. The right is somewhat worse than the left. If she goes down on the floor, she can't get up without help because of knee pain. She also has problems going upstairs. In the meantime, for the most part she continues to tolerate her methotrexate and Humira. She vomited twice recently and that was the day after methotrexate dosing. She has had this issue intermittently in the past, but nothing sustained. When she switched to taking it at night that seemed to help with this problem. She does occasionally forget a dose of either methotrexate or Humira and she willdefinitely feel less well in those situations. She had a brief rash on the right lower pretibial area that was bright, red, and scaly. Her sister thought this might represent psoriasis. But that has pretty much resolved. It was initially itchy, then painful, but always macular. There were no plaques or EN-like lesions. She is recently going through the change. She has not had a period in a couple of months. They werebecoming irregular before she stopped having them. On a social note, she tells me that the family form is doing well. 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 Patient Active Problem List Diagnosis Code ??? Rheumatoid arthritis M06.9 ??? Fibromyalgia M79.7 ??? Depression F32.9 ??? Iron deficiency anemia due to chronic blood loss D50.0 ??? Sleep disturbance G47.9 ??? Uveitis H20.9 ??? Anxiety F41.9 ??? Enthesopathy of hip region M76.899 ??? Perimenopausal N95.1 ??? Myalgia M79.1 ??? Costochondritis M94.0 ??? High risk medication use Z79.899 ??? Pain in right hip M25.551 ??? Primary osteoarthritis of both hips M16.0 ??? Sacro-iliac pain M53.3 ??? Chronic pain of both knees M25.561, M25.562, G89.29 Medications 09/11/17 1125 Medication Sig Taking? Adalimumab (HUMIRA PEN) 40 mg/0.8 mL Pen Injector Kit Inject 0.8 mLs subcutaneously every 14 days. Yes methotrexate 2.5 mg Tablet TAKE EIGHT TABLETS BY MOUTH ONCE WEEKLY, CAN TAKE WITHOUT REGARD TO FOOD, CALL CLINIC BEFORE STARTING MEDICATION Yes citalopram (CELEXA) 20 mg Tablet daily. Yes meloxicam (MOBIC) 7.5 mg Tablet Take 1 tablet by mouth daily. Yes folic acid (FOLVITE) 1 mg Tablet TAKE ONE TABLET BY MOUTH EVERY DAY Yes Physical Exam: She looks well, but she seems down. Her sister is very supportive. Blood pressure 121/68, pulse 74, resp. rate 18, height 157.5 cm (5' 2), weight 71.7 kg (158 lb), SpO2 99 %. myD-H RAPID-3 Responses 09/11/2017 RAPID-3 Function 2 RAPID-3 Pain 3.5 RADIP-3 Global 5 RAPID-3 Total Scores 10.5 (Moderate) Skin: The area where she had the rash on the right lower pretibial area just shows a few fading bruises now and they are not tender. HEENT: PERRLA, EOM positive. Pharynx clear. Lungs: Clear. Heart: Regular rhythm and rate without murmur, gallop, or rub. Abdomen: Benign. No masses, tenderness, or organomegaly. Extremities: No edema. Good distal pulses. Musculoskeletal: She has no synovitis in her hands. She has mild degenerative disease, most notableat the first CMC on the right more so than the left. Although that is tender, she says that does not reproduce the pain in the wrists that she is talking about, which is more along the dorsal joint line. Her elbows are hyperextensible, but otherwise normal. Her shoulders move well. Her hips move well. Her knees move remarkably well. She hyperextends to 15??. There is really no crepitance. She mayhave a small effusion on the right. The knees are cool. Her ankles are floppy, but otherwise normal. I did not find anything abnormal at the Achilles insertion on the left, other than some nondescript tenderness. Distal feet show mild DJD without synovitis. Neuro: Grossly intact. Assessment: We had a long discussion about her situation. Basically, once again, I had to give her somewhat of a pep talk. I reassured her that her rheumatoid arthritis is in very good control on hercurrent regimen. This sudden fleeting pain that she is experiencing in the wrists and ankle certainly does not sound like inflammatory arthritis. I think some of the problem with the hands is relatedto basilar thumb disease, and if she is doing certain tasks like opening jars, it can be quite painful abruptly, which alarms her. In terms of the knees, I think her hypermobility of and her lifestyle are contributing to some mechanical/degenerative pain there. We discussed this last time. I suspect x- rays will be negative, but her symptoms are persistent, so we will go ahead and obtain those. In terms of her fatigue, in the past she has gotten into trouble with iron deficiency anemia . She may be in that situation again, although she does not have obviously pale conjunctiva, and if anything her periods are now tapering off. I did tell her the good news is that even if she is iron-deficient now, that will probably be the last time she will be if she is no longer having periods. Anotherpossibility for her profound fatigue is a lupus overlap. In the past she had a significantly positive GABRIELLE. But she is also rheumatoid factor and CCP positive and certainly presented like typical rheumatoid arthritis. However, she could have concomitant primary SLE or drug-induced SLE from the [facility]. We will check her serologies today, in addition to other lab work. We will make further recommendations pending those results. She understood the plan. We gave the patient the following specific instructions: Patient Instructions Get labs today at 3L. Call or myDH for results if you don't hear from us by next week. Further recommendations pending results. In meantime, continue current regimen. Follow up in 6 months, but stay in touch. Over 30 minutes of the 40 minute follow-up were spent discussing these problems and their treatmentoptions in [id number] counseling. Orders Placed This Encounter Procedures ??? XR Knee 1-2 Views Bilat (Generic) ??? CBC (with Diff) ??? Comprehensive metabolic panel (non-fasting) ??? Sedimentation rate ??? CRP, acute inflammation ??? GABRIELLE ??? Extractable Nuclear Antigen (HESHAM) Ab ??? DNA Antibody (Double-Stranded) ??? Iron and TIBC ??? Ferritin ??? TSH ??? Hemogram ??? Differential, Automated Visit Diagnoses: 1. Fibromyalgia 2. High risk medication use CBC (with Diff) Comprehensive metabolic panel (non-fasting) CBC (with Diff) Comprehensive metabolic panel (non-fasting) Hemogram Differential, Automated 3. Iron deficiency anemia due to chronic blood loss Iron and TIBC Ferritin Iron and TIBC Ferritin 4. Myalgia TSH TSH 5. Rheumatoid arthritis involving multiple sites with positive rheumatoid factor CBC (with Diff) Comprehensive metabolic panel (non-fasting) Sedimentation rate CRP, acute inflammation GABRIELLE Extractable Nuclear Antigen (HESHAM) Ab DNA Antibody (Double-Stranded) Iron and TIBC Ferritin TSH CBC (with Diff) Comprehensive metabolic panel (non-fasting) CRP, acute inflammation Sedimentation rate GABRIELLE Extractable Nuclear Antigen (HESHAM) Ab DNA Antibody (Double-Stranded) Iron and TIBC Ferritin TSH Hemogram Differential, Automated 6. Chronic pain of both knees XR Knee 1-2 Views Bilat (Generic) Results for CRYSTAL EDMONDS ( ) Ref. Range 09/11/2017 12:56 WBC Latest Ref Range: 4.0 - 9.5 x10(3)/mcL 5.6 RBC Latest Ref Range: 4.00 - 5.21 x10(6)/mcL 3.89 (L) Hemoglobin Latest Ref Range: 11.7 - 15.5 gm/dL 12.8 Hematocrit Latest Ref Range: 35.7 - 45.8 % 36.4 MCV Latest Ref Range: 82.6 - 94.4 fL 93.6 MCH Latest Ref Range: 27.1 - 32.0 pg 32.9 (H) MCHC Latest Ref Range: 31.7 - 35.0 gm/dL 35.2 (H) RDWSD Latest Ref Range: 37.0 - 46.0 fL 43.8 RDWCV Latest Ref Range: 11.5 - 14.1 % 12.9 Platelets Latest Ref Range: 145 - 357 x10(3)/mcL 244 MPV Latest Ref Range: 7.6 - 12.9 fL 9.4 nRBC % Auto Latest Units: % 0.0 nRBC Abs Auto Latest Ref Range: 0.000 - 0.000 x10(3)/mcL 0.000 Neutr Abs (ANC) Latest Ref Range: 1.70 - 6.10 x10(3)/mcL 3.02 Neutrophils % Latest Units: % 53.7 Immature Gran % Latest Units: % 0.20 Lymphocytes % Latest Units: % 32.1 Monocytes % Latest Units: % 10.1 Eosinophils % Latest Units: % 3.2 Basophils % Latest Units: % 0.7 Abbie Gran Abs Latest Ref Range: 0.00 - 0.04 x10(3)/mcL 0.01 Lymphocytes Abs Latest Ref Range: 0.9 - 3.2 x10(3)/mcL 1.8 Monocyte Abs Latest Ref Range: 0.3 - 0.9 x10(3)/mcL 0.6 Eosinophils Abs Latest Ref Range: 0.0 - 0.4 x10(3)/mcL 0.2 Basophils Abs Latest Ref Range: 0.0 - 0.1 x10(3)/mcL 0.0 Sed Rate Latest Ref Range: 0 - 20 mm/hr 11 Sodium Latest Ref Range: 135 - 145 mmol/L 141 Potassium Latest Ref Range: 3.5 - 5.0 mmol/L 4.1 Chloride Latest Ref Range: 98 - 107 mmol/L 102 CO2 Latest Ref Range: 22 - 31 mmol/L 29 Anion Gap Latest Ref Range: 5 - 15 mmol/L 10 BUN Latest Ref Range: 8 - 18 mg/dL 15 Creatinine Latest Ref Range: 0.70 - 1.20 mg/dL 0.71 Estimated GFR Latest Ref Range: >=60 >60 Glucose Lvl Latest Ref Range: 65 - 199 mg/dL 90 Calcium Latest Ref Range: 8.5 - 10.5 mg/dL 9.5 Total Protein Latest Ref Range: 6.1 - 8.0 gm/dL 7.2 Albumin Latest Ref Range: 3.2 - 5.2 gm/dL 4.2 Total Bilirubin Latest Ref Range: 0.2 - 1.3 mg/dL 0.3 Alk Phos Latest Ref Range: 40 - 104 unit/L 52 AST Latest Ref Range: 0 - 30 unit/L 16 ALT Latest Ref Range: 0 - 30 unit/L 11 Ferritin Latest Ref Range: 30 - 400 ng/mL 74 Iron Latest Ref Range: 30 - 150 mcg/dL 91 TIBC Latest Ref Range: 250 - 450 mcg/dL 273 Iron Saturation Latest Ref Range: 20 - 50 % 33 GABRIELLE Titer Unknown 1:160 Homog/diff DNA Ab (DS) Latest Ref Range: Neg Neg HESHAM Ab Unknown SS-A/Ro Ab ?2.8 (<1.0) CRP Latest Ref Range: <=4.9 mg/L 1.0 TSH Latest Ref Range: 0.27 - 4.20 mlU/ML 3.61 Radiologist: Roney EXAMINATION: XR KNEE 1-2 VIEWS BILAT (GENERIC) CLINICAL HISTORY: Increasing knee pain. ? OA. TECHNIQUE: 2 views each knee COMPARISON: None ?? FINDINGS: Mild bilateral medial compartment space narrowing, compatible with mild degenerative change. No acute fracture or dislocation bones of either knee. No joint effusion either knee. ?? IMPRESSION Mild bilateral medial compartment space narrowing, compatible with mild degenerative change. No acute fracture or dislocation bones of either knee. No joint effusion either knee. documented in this encounter Plan of Treatment Upcoming Encounters Date Type Department Care Team (Late st Contact Info) Description 07/21/2024 1:00 PM EDT Office [place] [address] Isaiah Mcpherson MD [facility] [place] [address] documented as of this encounter Procedures Procedure Name Priority Date/Time Associated Diagnosis Comments CRP, ACUTE INFLAMMATION Routine 09/11/2017 12:56 PM EST Rheumatoid arthritis involving multiple sites with positive rheumatoid factor EXTRACTABLE NUCLEAR ANTIGEN (HESHAM) AB Routine 09/11/2017 12:56 PM EST Rheumatoid arthritis involving multiple sites with positive rheumatoid factor DNA ANTIBODY (DOUBLE-STRANDED) Routine 09/11/2017 12:56 PM EST Rheumatoid arthritis involving multiple sites with positive rheumatoid factor HEMOGRAM Routine 09/11/2017 12:56 PM EST High risk medication use Rheumatoid arthritis involving multiple sites with positive rheumatoid factor DIFFERENTIAL, AUTOMATED Routine 09/11/2017 12:56 PM EST High risk medication use Rheumatoid arthritis involving multiple sites with positive rheumatoid factor IRON AND TIBC Routine 09/11/2017 12:56 PM EST Iron deficiency anemia due to chronic blood loss Rheumatoid arthritis involving multiple sites with positive rheumatoid factor GABRIELLE TITER Routine 09/11/2017 12:56 PM EST SEDIMENTATION RATE Routine 09/11/2017 12 :56 PM EST Rheumatoid arthritis involving multiple sites with positive rheumatoid factor CBC (WITH DIFF) Routine 09/11/2017 12:56 PM EST High risk medication use Rheumatoid arthritis involving multiple sites with positive rheumatoid factor GABRIELLE ANTIBODY SCREEN Routine 09/11/2017 1 2:56 PM EST Rheumatoid arthritis involving multiple sites with positive rheumatoid factor TSH Routine 09/11/2017 12:56 PM EST Myalgia Rheumatoid arthritis involving multiple sites with positive rheumatoid factor FERRITIN Routine 09/11/2017 12:56 PM EST Iron deficiency anemia due to chronic blood loss Rheumatoid arthritis involving multiple sites with positive rheumatoid factor COMPREHENSIVE METABOLIC PANEL Routine 09/11/2017 12:56 PM EST High risk medication use Rheumatoid arthritis involving [...] PM Isaiah Mcpherson MD IMG DX ORDERABLES * (ABNORMAL) GABRIELLE Titer (09/11/2017 12:56 PM EST) GABRIELLE Titer Pos at 1:160(A) [facility] Comment: Titer seen with Homogeneous/Diffuse pattern. ??Is suggestive of autoantibodies to nDNA, histones, or DNA-associated proteins. Blood specimen (specimen) 09/11/2017 12:56 PM EST 09/12/2017 7:26 AM EST Narrative Resulting Agency Comment Spec In Lab Isaiah Mcpherson MD IMMUNOLOGY ORDERA BLES [facility] [place] [address] * Differential, Automated (09/11/2017 12:56 PM EST) Pathologist [facility] Neutrophil % 53.7 % [facility] Neutrophil Absolute 3.02 1.70 - 6.10 x10(3)/[facility] Lymph % 32.1 % [facility] Lymphocytes Abs 1.8 0.9 - 3.2 x10(3)/[facility] Monocyte % 10.1 % [facility] Monocyte Abs 0.6 0.3 - 0.9 x10(3)/[facility] Eos % 3.2 % [facility] Eosinophils Abs 0.2 0.0 - 0.4 x10(3)/[facility] Basophil % 0.7 % [facility] Baso Absolute 0.0 0.0 - 0.1 x10(3)/[facility] Immature Gran % 0.20 % [facility] Comment: Immature granulocytes(IG's)percentage and absolute count will include metamyelocytes, myelocytes, and promyelocytes. Blood smears from CBCs yielding IG's will be scanned manually for concordance. If this scan disagrees with the automated IG or if promyelocytes are noted, a manual differential will be performed. Immature Gran Absolute 0.01 0.00 - 0.04 x10(3)/[facility] Blood specimen (specimen) 09/11/2017 12:56 PM EST 09/11/2017 1:02 PM EST Narrative Resulting Agency Comment Spec In Lab Isaiah Mcpherson MD HEMATOLOGY ORDERA BLES [facility] [place] [address] * (ABNORMAL) Hemogram (09/11/2017 12:56 PM EST) White Blood Cell 5.6 4.0 - 9.5 x10(3)/ L [facility] Red Blood Cell 3.89(L) 4.00 - 5.21 x10(6)/[facility] Hemoglobin 12.8 11.7 - 15.5 gm/dL [facility] Hematocrit 36.4 35.7 - 45.8 % [facility] Mean Cell Volume 93.6 82.6 - 94.4 fL [facility] Mean Cell Hemoglobin 32.9(H) 27.1 - 32.0 pg [facility] Mean Cell Hemoglobin Concentration 35.2(H) 31.7 - 35.0 gm/dL [facility] Platelet 244 145 - 357 x10(3)/ L [facility] RDW Standard Deviation 43.8 37.0 - 46.0 [facility] RDW coefficient of variation 12.9 11.5 - 14.1 % [facility] Mean Platelet Volume 9.4 7.6 - 12.9 [facility] NRBC% auto 0.0 % [facility] NRBC Absolute 0.000 0.000 - 0.000 x10(3)/[facility] Blood specimen (specimen) 09/11/2017 12:56 PM EST 09/11/2017 1:02 PM EST Narrative Resulting Agency Comment Spec In Lab Isaiah Mcpherson MD HEMATOLOGY ORDERA BLES Performing Organization Address City/[facility]/ZIP Co de Phone Number [facility] [place] [address] * TSH (09/11/2017 12:56 PM EST) Pathologist [facility] Thyroid Stimulating Hormone 3.61 0.27 - 4.20 mlU/ML [facility] Blood specimen (specimen) 09/11/2017 12:56 PM EST 09/11/2017 1:02 PM EST Narrative Resulting Agency Comment Spec In Lab Isaiah Mcpherson MD CHEMISTRY ORDERAB LES Performing Organization Address [facility] Co de Phone Number [facility] [place] [address] * Ferritin (09/11/2017 12:56 PM EST) [facility] Ferritin 74 30 - 400 ng/mL [facility] Comment: Pediatric reference ranges not verified at [facility], interpret with caution. Reference ranges for females greater than 50 years of age approach values for men, i.e., 30-400 ng/mL. Blood specimen (specimen) 09/11/2017 12:56 PM EST 09/11/2017 1:02 PM EST Narrative Resulting Agency Comment Spec In Lab Isaiah Mcpherson MD CHEMISTRY ORDERAB LES Performing Organization Address [facility]/ZIP Co de Phone Number [facility] [place] [address] * Iron and TIBC (09/11/2017 12:56 PM EST) Iron 91 30 - 150 mcg/dL [facility] TIBC 273 250 - 450 mcg/dL [facility] Iron Saturation 33 20 - 50 % [facility] Blood specimen (specimen) 09/11/2017 12:56 PM EST 09/11/2017 1:02 PM EST Narrative Resulting Agency Comment Spec In Lab Isaiah Mcpherson MD CHEMISTRY ORDERAB LES Performing Organization Address [facility]/ZIP Co de Phone Number [facility] [place] [address] * DNA Antibody (Double-Stranded) (09/11/2017 12:56 PM EST) DNA Ab (DS) Neg Neg [facility] Blood specimen (specimen) 09/11/2017 12:56 PM EST 09/12/2017 7:26 AM EST Narrative Resulting Agency Comment Spec In Lab Isaiah Mcpherson MD LAB SEND OUT ORDE RABLES Performing Organization Address [facility] de Phone Number [facility] [place] [address] * (ABNORMAL) Extractable Nuclear Antigen (HESHAM) Ab (09/11/2017 12:56 PM EST) HESHAM Ab Test ?Result ?Flag ??Unit ??RefValue Ab to Extractable Nuclear Ag Eval,S ??SS-A/Ro Ab, IgG, S ?2.8 ?H ?U ? <1.0 (Negative) ?Interpretation : Positive (>=1.0) ??SS-B/La Ab, IgG, S ?0.6 ? U ? <1.0 (Negative) ??Sm Ab, IgG, S ? <0.2 ?U ? <1.0 (Negative) ??MEDICAL RECORDS CODER Ab, IgG, S ?0.5 ? U ? <1.0 (Negative) ??Scl 70 Ab, IgG, S ? <0.2 ?U ? <1.0 (Negative) ??Zoey 1 Ab, IgG, S ? <0.2 ?U ? <1.0 (Negative) ?Test Performed by: ?[facility] ?[address] [id number] (A) [facility] Blood specimen (specimen) 09/11/2017 12:56 PM EST 09/11/2017 2:21 PM EST Narrative Resulting Agency Comment Spec In Lab Isaiah Mcpherson MD LAB SEND OUT VIKY APONTE [facility] [place] [address] * (ABNORMAL) GABRIELLE (09/11/2017 12:56 PM EST) GABRIELLE Titer to follow(A) Neg [facility] Blood specimen (specimen) 09/11/2017 12:56 PM EST 09/12/2017 7:26 AM EST Narrative Resulting Agency Comment Spec In Lab Isaiah Mcpherson MD LAB SEND OUT VIKY APONTE Performing Organization Address [facility]/ZIP Co de Phone Number [facility] [place] [address] * CRP, acute inflammation (09/11/2017 12:56 PM EST) C-Reactive Protein 1.0 <=4.9 mg/L [facility] Blood specimen (specimen) 09/11/2017 12:56 PM EST 09/11/2017 1:02 PM EST Narrative Resulting Agency Comment Spec In Lab Isaiah Mcpherson MD CHEMISTRY ORDERAB LES Performing Organization Address [facility] Co de Phone Number [facility] [place] [address] * Sedimentation rate (09/11/2017 12:56 PM EST) [facility] Signature Sedimentation Rate Automated 11 0 - 20 mm/hr [facility] Blood specimen (specimen) 09/11/2017 12:56 PM EST 09/11/2017 1:02 PM EST Narrative Resulting Agency Comment Spec In Lab Isaiah Mcpherson MD HEMATOLOGY ORDERA BLES Performing Organization Address [facility] Co de Phone Number [facility] [place] [address] * Comprehensive metabolic panel (non-fasting) (09/11/2017 12:56 PM EST) Glucose 90 65 - 199 mg/dL [facility] Comment:Diabetes: >=200 mg/d L plus symptoms Blood Urea Nitrogen 15 8 - 18 mg/dL [facility] LABORATORY Creatinine 0.71 0.70 - 1.20 mg/dL [facility] Sodium 141 135 - 145 mmol/L [facility] Potassium 4.1 3.5 - 5.0 mmol/L [facility] Comment: Please note: ??Patients with WBC >100,000 may have falsely elevated Potassium levels. ??For accurate Potassium quantification in these patients send serum separator tube (gold top) for subsequent determinations. ??Contact the Clinical Chemistry Laboratory if there are any questions. Chloride 102 98 - 107 mmol/L [facility] Carbon Dioxide 29 22 - 31 mmol/L [facility] Anion Gap 10 5 - 15 mmol/L [facility] Calcium 9.5 8.5 - 10.5 mg/dL [facility] Protein, Total 7.2 6.1 - 8.0 gm/dL [facility] Albumin 4.2 3.2 - 5.2 gm/dL [facility] Aspartate Aminotransferase 16 0 - 30 unit/L [facility] Alanine Aminotransferase 11 0 - 30 unit/L [facility] Alkaline Phosphatase 52 40 - 104 unit/L [facility] Bilirubin, Total 0.3 0.2 - 1.3 mg/dL [facility] Est Glomerular Filtration Rate >60 >=60 [facility] Comment: The reported eGFR should be multiplied by 1.2 for patients. The MDRD is not an appropriate measure of renal function for patients with body mass extremes or in patients with acute kidney failure. http://ISIS/DHnkdep http://ISIS/DHMCnkf Blood specimen (specimen) 09/11/2017 12:56 PM EST 09/11/2017 1:02 PM EST Narrative Resulting Agency Comment Spec In Lab Isaiah Mcpherson MD CHEMISTRY ORDERAB LES [facility] [place] [address] documented in this encounter Visit Diagnoses Diagnosis Fibromyalgia Mylagia and myositis, unspecified High risk medication use Encounter for long-term (current) use of other medications Iron deficiency anemia due to chronic blood loss Iron deficiency anemia secondary to blood loss (chronic) Myalgia Mylagia and myositis, unspecified Rheumatoid arthritis involving multiple sites with positive rheumatoid factor Chronic pain of both knees Chronic pain of both knees documented in this encounter Care Teams Cutting Table Operator First Relationship Specialty Start Date End Date Ping Garcia APRN [address] [place] [address] PCP - General Family Medicine 01/04/17 06/02/19 documented as of this encounter
--- OUTSIDE RECORDS SUMMARY | 2024-06-19 00:21 | XMS_ITS | Encounter Summary ---
[facility] [place] [address] Care Team Providers Care Administration Intern Name Role Phone Ping Garcia APRN Primary Care Provider [phone] Reason for Referral * Consultation (Routine) - Closed Specialty Diagnoses / Procedures Referred By Chris bryant Referred To Contact Otolaryngology Diagnoses High risk medication use Rheumatoid arthritis involving multiple sites with positive rheumatoid factor Chronic throat pain Isaiah Mcpherson MD [facility] [place] [address] [facility] Otolaryngology [address] [place] [id number] Referral ID Status Reason Start Date Expiration Date V isits Requested Visits Authorized [id number] Closed Consult, Test & Treat 09/24/2017 09/24/2018 1 1 Encounter Details Date Type Department Care Team (Late st Contact Info) Description 09/24/2017 11:00 AM EST Office [place] [address] Isaiah Mcpherson MD [facility] [place] [address] High risk medication use; Rheumatoid arthritis involving multiple sites with positive rheumatoid factor; Chronic throat pain Social History Tobacco Use Types Packs/Day Years Used Date Smoking Tobacco: Former Cigarettes Smokeless Tobacco: Never Sex and Gender Information Value Date Recorded Sex Assigned at Not on file Gender Identity Not on file Sexual Orientation Not on file documented as of this encounter Last Filed Vital Signs Vital Sign Reading Time Taken Comments Blood Pressure 126/73 09/24/2017 10:54 AM EST Pulse 55 09/24/2017 10:54 AM EST Temperature - - Respiratory Rate 18 09/24/2017 10:54 AM EST Oxygen Saturation 99% 09/24/2017 10:54 AM EST Inhaled Oxygen Concentration - - Weight 71.7 kg (158 lb) 09/24/2017 10:54 AM EST Height 157.5 cm (5' 2) 09/24/2017 10:54 AM EST Body Mass Index 28.9 09/24/2017 10:54 AM EST documented in this encounter Patient Instructions * Patient Instructions* Isaiah Mcpherson MD - 09/24/2017 11:00 AM EST Continue current regimen for RA. See ENT specialist. Try and schedule today. We'll hold off on CT for now and see what ENT says. Follow up as previously scheduled. Call if problems. documented in this encounter Progress Notes * Isaiah Mcpherson MD - 09/24/2017 11:00 AM EST Rheumatology Clinic: Dr. Mcpherson 09/24/2017 [id number] Crystal Felder is seen in follow-up of her rheumatoid arthritis. We just had her in a couple of weeks ago and she was doing well in that regard. She was having ongoing knee pain and we had x-rays done that demonstrated medial compartment OA bilaterally, although mild. She sent me a message a few days ago complaining of pain in her left throat. This has been going on for at least a year, but after her visit last time we found some lymphadenopathy in her neck and were manipulating the area, she had more pain. She's concerned about this. She's mentioned that she's had diminished appetite lately.She gestures to the left lateral neck is the area where she's having this discomfort. We queried her about reflux symptoms and she really doesn't have many, although she has episodes at night where she'll have intense pain on swallowing. She does have a chronic problem with left TMJ and she wondersif that is somehow related. She hasn't really had any symptoms of upper respiratory infection or sinus infections. She does not have a cough. She does not have significant shortness of breath. And again, she denies heartburn, dyspepsia, etc. She says her sister has had reflux and that's caused irritation of her upper throat. When she contacted us with these problems and with her lymphadenopathy and being on immunosuppressive drugs, we ordered a CT scan of the neck. That has not been scheduled yet. Patient Active Problem List Diagnosis Code ??? [...] ??? Chronic throat pain R07.0, G89.29 Medications 09/11/17 1125 Medication Sig Taking? [...] EVERY DAY Yes Physical Exam: She looks in general well. She's anxious about the potential significance of this throat pain and lymphadenopathy. Blood pressure 126/73, pulse 55, resp. rate 18, height 157.5 cm (5' 2), weight 71.7 kg (158 lb), SpO2 99 %. myD-H RAPID-3 Responses 05/09/2016 09/05/2016 03/04/2017 09/11/2017 RAPID-3 Function 1.66 1 2 2 RAPID-3 Pain 3 2 5.5 3.5 RADIP-3 Global 3.5 1 5 5 RAPID-3 Total Scores 8.16 (Moderate) 4 (Low) 12.5 (High) 10.5 (Moderate) Skin: Clear. HEENT: PERRLA, EOM positive. Her pharynx shows some mild erythema perhaps inflammation at the posterior oropharynx brings in the tonsillar recess. There are no oral ulcers. There are no masses obvious. Neck: She does have submandibular lymph node, left more prominent than the right. It's about 1 cm in longest dimension. It's minimally tender. It's freely movable. She has a smaller more typical lymph node on the right side. There is no other lymphadenopathy. I cannot reproduce any other tendernessanteriorly other than at that solitary lymph node. Lungs: Clear. Heart: Regular rhythm and rate without murmur, gallop, or rub. Abdomen: Benign. No masses, tenderness, or organomegaly. Extremities: No edema. Good distal pulses. Musculoskeletal: She has no synovitis in the upper extremities. Her lower extremity exam was deferred. Neuro: Grossly intact. Assessment: We had a long discussion about this problem, but I think it deserves to be looked into.I don't think the CT scan will be particularly helpful upfront. I think it's much more important for her to see an ENT person. I think the most likely explanation here is reflux with irritation of her upper larynx. I suppose TMJ might also be responsible, but that doesn't account for the lymphadenopathy. If the ENT provider feels it's worthwhile proceeding with a CT scan, obviously we will move forward with that but for the time being we'll hold on that. She understood the plan. I'll see her in follow-up as previously scheduled but will stay in touch as this workup proceeds. We gave the patient the following specific instructions: Patient Instructions Continue current regimen for RA. See ENT specialist. Try and schedule today. We'll hold off on CT for now and see what ENT says. Follow up as previously scheduled. Call if problems. Over 20 minutes of the 25 minute follow-up were spent discussing these problems and their treatmentoptions in [id number] counseling. Orders Placed This Encounter Procedures ??? Referral to ENT Visit Diagnoses: 1. High risk medication use Referral to ENT 2. Rheumatoid arthritis involving multiple sites with positive rheumatoid factor Referral to ENT 3. Chronic throat pain Referral to ENT documented in this encounter Plan of Treatment Upcoming Encounters Date Type Department Care Team (Late st Contact Info) Description 07/21/2024 1:00 PM EDT Office [place] [address] Isaiah Mcpherson MD [facility] [place] [address] Scheduled Referrals Name Type Priority Associated Diagnoses Orde r Schedule Referral to ENT Outpatient Referral Routine High risk medication use Rheumatoid arthritis involving multiple sites with positive rheumatoid factor Chronic throat pain Ordered: 09/24/2017 documented as of this encounter Visit Diagnoses Diagnosis High risk medication use Encounter for long-term (current) use of other medications Rheumatoid arthritis involving multiple sites with positive rheumatoid factor Chronic throat pain Throat pain documented in this encounter Care Teams Administration Intern Relationship Specialty Start Date End Date Ping Garcia APRN [address] [place] [address] PCP - General Family Medicine 01/04/17 06/02/19 documented as of this encounter
--- OUTSIDE RECORDS SUMMARY | 2024-06-19 00:21 | XMS_ITS | Encounter Summary ---
Author Organization [facility] [address] [place] [id number] Care Team Providers Care Filtrose Crusher Name Role Phone Ping Garcia APRN Primary Care Provider [phone] [phone] Reason for Referral * Consultation (Routine) - Closed Specialty Diagnoses / Procedures Referred By Chris bryant Referred To Contact Pain Management Diagnoses Coccydynia Chronic left-sided low back pain without sciatica Isaiah Mcpherson MD [facility] [place] [place] [address] Rossy Lam APRN [facility] [place] [address] Referral ID Status Reason Start Date Expiration Date V isits Requested Visits Authorized [id number] Closed Consult, Test & Treat 03/09/2019 03/08/2020 1 1 Encounter Details Date Type Department Care Team (Late st Contact Info) Description 03/09/2019 Orders Only Rheumatology at [place] [phone] Isaiah Mcpherson MD [facility] [place] [place] [address] Coccydynia; Chronic left-sided low back pain without sciatica Social History [...] 1:00 PM EDT Office [place] [address] Isaiah Mcpherson MD [facility] [place] [address] Scheduled Referrals Name Type Priority Associated Diagnoses Orde r Schedule Referral to Spine Center Outpatient Referral Routine Coccydynia Chronic left-sided low back pain without sciatica Ordered: 03/09/2019 documented as of this encounter Visit Diagnoses Diagnosis Coccydynia Other disorder of coccyx Chronic left-sided low back pain without sciatica documented in this encounter Care Teams Filtrose Crusher Relationship Specialty Start Date End Date Ping Garcia APRN [address] [place] [address] PCP - General Family Medicine 01/04/17 06/02/19 documented as of this encounter
--- OUTSIDE RECORDS SUMMARY | 2024-06-19 00:21 | XMS_ITS | Encounter Summary ---
Author Organization [facility] [place] [address] Care Team Providers Care Podiatrist Name Role Phone Jennifer Anaya APRN Primary Care Provider [phone]- [phone] Reason for Visit * Reason Onset Date Comments Prior Authorization 09/05/2016 Encounter Details Date Type Department Care Team (Late st Contact Info) Description 09/05/2016 Telephone [place] [phone] Anny Dolan Prior Authorization Social History Tobacco Use Types Packs/Day Years Used Date Smoking Tobacco: Former Smokeless Tobacco: Never Sex and Gender Information Value Date Recorded Sex Assigned at Not on file Gender Identity Not on file Sexual Orientation Not on file documented as of this encounter Miscellaneous Notes * Telephone Encounter - Anny Dolan - 09/05/2016 10:08 AM EST KODI Garcia faxed to plan. documented in this encounter Plan of Treatment Upcoming Encounters Date Type Department Care Team (Late st Contact Info) Description 07/21/2024 1:00 PM EDT Office [place] [phone] Isaiah Mcpherson MD [facility] [address] [place] [phone] documented as of this encounter Visit Diagnoses Not on filedocumented in this encounter Care Teams Podiatrist Relationship Specialty Start Date End Date Jennifer Anaya [place] [address] [place] [address] PCP - General 08/17/11 01/03/17 documented as of this encounter
--- OUTSIDE RECORDS SUMMARY | 2024-06-19 00:21 | XMS_ITS | Encounter Summary ---
Author Organization [facility] [place] [address] Care Team Providers Care Restaurant Lead Name Role Phone Jose Pingeiljah Perkins APRN Primary Care Provider [phone] Reason for Visit * Reason Comments Patient Education Encounter Details Date Type Department Care Team (Late st Contact Info) Description 11/25/2018 Specialty [place] [address] Mariam Patel Social History Tobacco Use Types Packs/Day Years Used Date Smoking Tobacco: Former Cigarettes Smokeless Tobacco: Never Comments:8 years ago Sex and Gender Information Value Date Recorded Sex Assigned at Not on file Gender Identity Not on file Sexual Orientation Not on file documented as of this encounter Progress Notes * Mariam Loyd [facility] - 11/25/2018 3:17 PM EST Specialty Pharmacy Consultation; Mariam Loyd Bernice Comprehensive Medication Management (CMM) Crystal Felder Diagnosis: Rheumatoid Arthritis Therapy Start Date: Fall 2010 Contact in person or via telephone:Telephone Ms. Crystal Felder is a 53 y.o. (1965) female who was contacted in regard to specialty medication. Spoke with patient regarding Humira . A review of the medication therapy was performed. The medication was Filled as scheduled, and all medication related questions and concerns were addressed. The specialty pharmacy staff will follow up with the patient 5-7 days prior to next refill. Is the patient willing to proceed with the Clinical Assessment? Yes Summary and Recommendations: Crystal was previously filling Humira with [facility] and reports many years of experience with the medication. She has experienced several delays in getting the medication delivered to her in the past and is happy to switch services to [facility]. She says its been almost two months since her last dose of Humira. She is currently flaring at this time, with pain noted in the wrists, fingers, and ankles. She describes her symptoms as a persistent aching, and rates her daily pain on average as a 2/10 recently. She says that in general Humira has worked very well to control her RA symptoms and prevent flares. The medication was briefly reviewed, with emphasis on storage, handling, and administration. She was unaware that it was recommended to allow the medication to warm to room temperature before injections. She plans to do this going forward to help with burning/stinging with injection. She confirms receipt of flu vaccine for [id number] season and already had the flu sweep through her household. We reviewed dose hold parameters for Humira. Crystal is aware to reach out to the clinic to review if infection is suspected, antibiotics are prescribed, or if surgeries are scheduled. She denies any suspected side effects from past Humira use. Crystal was educated on timeframe to achieve full therapeutic benefit with Humira given two month gap in therapy. She is aware she can reach out to Dr. Mcpherson as needed to review bridging therapies as needed if flare signs and symptoms progress further. She declines future follow-up consults with a specialty pharmacist due to her experience with the medication. She prefers only to receive refill reminders services going forward with the [facility] Specialty Clinical Management Program. She was advised that she can reach out to speak with a pharmacist for medication-related questions or concerns at any time. Clinic follow-up needed: no Allergies and Drug intolerance: No Known Allergies Special Dietary or Hydration Requirements: no There is no height or weight on file to calculate BMI. Medication Reconciliation Discrepancies (compared to [facility] med list) -Patient reports no changes to medication list Medication Adherence Demonstrates understanding of importance of adherence: yes [...] subcutaneously every 14 days. 2 kit 5 ??? metHOTREXate 2.5 mg Tablet TAKE 8 TABLETS BY MOUTH ONCE WEEKLY, CAN TAKE WITHOUT REGARD TO FOODCALL CLINIC BEFORE STARTING MEDICATION 104 tablet 3 ??? folic acid (FOLVITE) 1 mg Tablet TAKE ONE TABLET BY MOUTH EVERY DAY 90 tablet 3 ??? citalopram (CELEXA) 20 mg Tablet daily. 03/05/2017: Received from: External Pharmacy Received Sig: TAKE ONE TABLET BY MOUTH EVERY DAY 2 No current facility-administered medications for this visit. Most Recent Vitals: Ht Readings from Last 1 Encounters: 08/29/18 157.5 cm (5' 2) Wt Readings from Last 3 Encounters: 08/29/18 70.3 kg (155 lb) 10/23/17 72.6 kg (160 lb) 09/24/17 71.7 kg (158 lb) Temp Readings from Last 3 Encounters: 08/29/18 36.6 ??C (97.9 ??F) (Oral) 09/05/16 36.3 ??C (97.3 ??F) 05/09/16 36.8 ??C (98.2 ??F) BP Readings from Last 3 Encounters: 08/29/18 109/60 09/24/17 126/73 09/11/17 121/68 Pulse Readings from Last 3 Encounters: 08/29/18 51 09/24/17 55 09/11/17 74 Pertinent Lab values: Lab Results Component Value Date NA 141 09/11/2017 K 4.1 09/11/2017 CL 102 09/11/2017 CO2 29 09/11/2017 BUN 15 09/11/2017 CREATININE 0.71 09/11/2017 GLUCOSE 90 09/11/2017 CALCIUM 9.5 09/11/2017 Lab Results Component Value Date ALT 11 09/11/2017 AST 16 09/11/2017 ALKPHOS 52 09/11/2017 BILITOT 0.3 09/11/2017 BILIDIR 0.1 03/05/2017 ALBUMIN 4.2 09/11/2017 PROT 7.2 09/11/2017 Lab Results Component Value Date WBC 5.6 09/11/2017 HGB 12.8 09/11/2017 HCT 36.4 09/11/2017 MCV 93.6 09/11/2017 PLATELET 244 09/11/2017 No results found for: HA1C Immunization History Administered Date(s) Administered ??? Influenza PF, Split 07/24/2013, 08/11/2014, 09/16/2015 ??? Pneumococcal Polyvalent 23 02/18/2006 ??? Td, adult 02/18/2006 ??? Tuberculin Skin Test, PPD 12/28/2010 Assessment and Recommendations: Title Type of Medication Management: chronic disease management, targeted medication review Referred By: provider Recipient: beneficiary Provider: plan sponsor pharmacist Visit Type: [facility] Follow-up Method of Contact: by telephone Cognitive [...] and OTC drug and food interactions discussed, therapeutic rationale discussed, cost of medications and cost implications discussed, adherence and missed doses discussed, pharmacy contact information discussed, health goals discussed, monitoring medication discussed, over the counter products discussed, recommendations to doctor discussed, reminder to refill or pick up and delivery driver medication discussed, self-monitoring discussed, start medication discussed, timing of medications discussed, vaccination discussed, lifestyle modification education Drug Medication Management Summary Topics discussed: reviewed medication changes since last visit, medication safety precautions education provided, drug interaction education provided to patient, doses and administration discussed, safe handling, storage, and disposal discussed, possible adverse effects and management discussed, possible drug and prescription drug interactions discussed, possible drug and OTC drug and food interactions discussed, therapeutic rationale discussed, cost of medications and cost implications discussed, adherence and missed doses discussed, pharmacy contact information discussed, health goals discussed, monitoring medication discussed, over the counter products discussed, recommendations to doctor discussed, reminder to refill or pick up and delivery driver medication discussed, self-monitoring discussed, start medication discussed, timing of medications discussed, vaccination discussed, lifestyle modification education Time spent: 1-15 min Treatment Outcomes No data found. Reviewed in detail with patient: Dose appropriateness [...] mitigation strategies, and interruptions in therapy: Yes Physical Assessment: Functional limitations identified: Persistent pain in wrists/ankles Cognitive limitations identified: no Concern regarding orientation/memory: no Concern with reasoning/judgement: no Is patient a fall risk: no Other needed information: no Social Assessment: Does the patient have a primary critical care unit manager? no Patient has emergency contact on file: Yes Physical and Home Health Assessment: Is the patient able to store their medication as directed? Yes Is the patient in a safe home environment? Yes Do you have a support network? Yes Reviewed potential home safety hazards: Yes Economic Assessment: Patient is agreeable to medication copay: Yes Copay Amount: $3 Day Supply: 28 Date Needed: MELY Copay assistance required: no Therapy Assessment: Current Medication Dosing/Route/Frequency: Humira 40 mg subq once every 14 days Appropriate Therapy: Yes Current joints affected: wrists, ankles, fingers Current pain rating (1-10): 2/10 Estimated duration of morning joint stiffness: 0 Estimated number of recent flares: currently flaring due to 8 week gap Recent systemic corticosteroid use: no Expected Outcome: Reduction/remission of joint pain and stiffness associated with RA Patient's goals: Patient's specific desired goal: Patient is happy to start therapy again with Humira and hopes to see relief in current RA flare due to 8 week gap in therapy Measured by: Joint pain (pain scale), areas affected, estimated flares Time-frame to meet goal: 3 months Patient's Problems/Needs: Follow-up with Dr. Mcpherson if flare persists/worsens Care Plan Reviewed and Approved by both Pharmacist and Patient: Yes Monitoring requirements for prescribed medication: Monitor improvement of symptoms and physical function assessments. Latent TB screening prior to initiating and during therapy; signs/symptoms of active infection, including tuberculosis (prior to, during, and following therapy); CBC with differential; signs/symptoms/worsening of heart failure; HBV screening prior to initiating (all patients), HBVcarriers (during and for several months following therapy); signs and symptoms of hypersensitivity reaction; symptoms of lupus-like syndrome; signs/symptoms of malignancy Interventions (if applicable): No Educational information or adherence tools provided: Yes Additional equipment/supplies required: no Pharmacist follow-up needed: No- Patient opts out of future follow-up consults with specialty pharmacist. Prefers to manage therapy on her own. Informed patient of specialty pharmacy services: Yes -Patient will be provided with welcome packet: Yes Date to be provided: 11/27/18 Delivery Method: Mail -Patient will be provided with Rights & Responsibilities: Yes Date to be provided: 11/27/18 Delivery Method: Mail -Patient is aware a [...] and that [facility] isproviding recommendations (summary located at top of note) for provider review and follow up. Mariam Loyd RPH 11/25/18 4:22 PM documented in this encounter Plan of Treatment Upcoming Encounters Date Type Department Care Team (Late st Contact Info) Description 07/21/2024 1:00 PM EDT [place] [address] Isaiah Mcpherson MD [facility] [place] [address] [place] [address] documented as of this encounter Visit Diagnoses Not on filedocumented in this encounter Care Teams Restaurant Lead Relationship Specialty Start Date End Date Ping Garcia APRN [address] [place] [address] PCP - General Family Medicine 01/04/17 06/02/19 documented as of this encounter
--- OUTSIDE RECORDS SUMMARY | 2024-06-19 00:21 | XMS_ITS | Encounter Summary ---
Author Organization [facility] [place] [address] Care Team Providers Care Ssis Architect Name Role Phone Ping Garcia ASHISH Primary Care Provider [phone] Reason for Visit * Reason Comments Medication Management Encounter Details Date Type Department Care Team (Late st Contact Info) Description 01/16/2019 Specialty [place] [id number] George Harrington RPH Social History Tobacco Use Types Packs/Day Years Used Date Smoking Tobacco: Former Cigarettes Smokeless Tobacco: Never Comments:8 years ago Sex and Gender Information Value Date Recorded Sex Assigned at Not on file Gender Identity Not on file Sexual Orientation Not on file documented as of this encounter Progress Notes * George Harrington RPH - 01/16/2019 10:44 AM EDT Clinical Management Plan: Refill Specialty Pharmacy Consultation; George Harrington RPH Comprehensive Medication Management (CMM) Crystal Felder Ms. Crystal Felder is a 53 y.o. (1965) female who called in a refill for their specialty prescription, Humira, before a refill reminder was needed from the - Specialty Pharmacy. The medication was refilled on 12/18/18 for a 28-day supply for a $3.00 copay. Adherence: Gaps in fill history: none Was a change made to the Care Plan: no The specialty pharmacy staff will follow up with the patient 5-7 days prior to next refill for reminder if needed. George Harrington RPH 01/16/19 10:44 AM documented in this encounter Plan of Treatment Upcoming Encounters Date Type Department Care Team (Late st Contact Info) Description 07/21/2024 1:00 PM EDT Office [place] [address] Isaiah Mcpherson MD [facility] [place] [address] documented as of this encounter Visit Diagnoses Not on filedocumented in this encounter Care Teams Ssis Architect Relationship Specialty Start Date End Date Ping Garcia APRN [address] [place] [address] PCP - General Family Medicine 01/04/17 06/02/19 documented as of this encounter
--- OUTSIDE RECORDS SUMMARY | 2024-06-19 00:21 | XMS_ITS | Encounter Summary ---
Author Organization [facility] [place] [address] Care Team Providers Care Fishing Tackle Repairer Name Role Phone Ping Garcia APRN Primary Care Provider [phone] Reason for Visit * Reason Comments Medication Refill Encounter Details Date Type Department Care Team (Late st Contact Info) Description 10/17/2018 [place] [address] Isaiah Mcpherson MD [facility] [place] [address] [place] [address] Social History Tobacco Use Types Packs/Day Years [...] 1:00 PM EDT Office [place] [address] Isaiah Mcpherson MD [facility] [place] [place] [address] documented as of this encounter Visit Diagnoses Not on filedocumented in this encounter Care Teams Fishing Tackle Repairer Relationship Specialty Start Date End Date Ping Garcia APRN [address] [place] [id number] PCP - General Family Medicine 3/10/17 8/6/19 documented as of this encounter
--- OUTSIDE RECORDS SUMMARY | 2024-06-19 00:21 | XMS_ITS | Encounter Summary ---
Author Organization [facility] [place] [address] Care Team Providers Care Reporting Lead Name Role Phone Ping Garcia APRN Primary Care Provider [phone] Reason for Visit * Reason Onset Date Comments Medication Refill 03/10/2018 Encounter Details Date Type Department Care Team (Late st Contact Info) Description 03/10/2018 Ref[place] [address] Chon Barraza, RN Social History Tobacco Use Types Packs/Day [...] 1:00 PM EDT Office [place] [address] Isaiah Mcpherson MD [facility] [place] [address] documented as of this encounter Visit Diagnoses Not on filedocumented in this encounter Care Teams Reporting Lead Relationship Specialty Start Date End Date Ping Garcia APRN [address] [place] [address] PCP - General Family Medicine 01/04/17 06/02/19 documented as of this encounter
--- OUTSIDE RECORDS SUMMARY | 2024-06-19 00:21 | XMS_ITS | Encounter Summary ---
Author Organization [facility] [place] [address] Care Team Providers Care Yard Foreman Name Role Phone Ping Garcia APRN Primary Care Provider [phone] Reason for Visit * Reason Comments Medication Refill Encounter Details Date Type Department Care Team (Late st Contact Info) Description 08/03/2017 [place] [address] Angelica Ellington, RN [facility] [place] [address] Social History Tobacco Use Types Packs/Day Years [...] 1:00 PM EDT Office [place] [address] Isaiah Mcpherson MD [facility] [place] [address] documented as of this encounter Visit Diagnoses Not on filedocumented in this encounter Care Teams Yard Foreman Relationship Specialty Start Date End Date Ping Garcia APRN [address] [place] [address] PCP - General Family Medicine 01/04/17 06/02/19 documented as of this encounter
--- OUTSIDE RECORDS SUMMARY | 2024-06-19 00:21 | XMS_ITS | Encounter Summary ---
Author Organization [facility] [place] [address] Care Team Providers Care Balloon Design Printer Name Role Phone Jennifer Anaya APRN Primary Care Provider [phone]- [phone] Reason for Visit * Reason Onset Date Comments Medication Refill 12/28/2016 Encounter Details Date Type Department Care Team (Late st Contact Info) Description 12/28/2016 Ref[place] [address] Esther Wetzel LPN Social History Tobacco Use Types Packs/Day Years [...] 1:00 PM EDT Office [place] [address] Isaiah Mcpherson MD [facility] [place] [address] documented as of this encounter Visit Diagnoses Not on filedocumented in this encounter Care Teams Balloon Design Printer Relationship Specialty Start Date End Date Jennifer [place] [address] [place] [address] PCP - General 08/17/11 01/03/17 documented as of this encounter
--- OUTSIDE RECORDS SUMMARY | 2024-06-19 00:21 | XMS_ITS | Encounter Summary ---
Author Organization [facility] Address [facility] [place] [address] Care Team Providers Care Radioactivity Technician Name Role Phone Ping Garcia APRN Primary Care Provider +1 -[phone] Reason for Visit * Reason Comments Other new pt left side thr oat pain, some swallowing difficulty * Consultation (Routine) - Closed Specialty Diagnoses / Procedures Referred By Contac t Referred To Contact Otolaryngology Diagnoses High risk medication use Rheumatoid arthritis involving multiple sites with positive rheumatoid factor Chronic throat pain Isaiah Mcpherson MD [facility] [place] [address] [facility] Otolaryngology [address] [place] [id number] Referral ID Status Reason Start Date Expiration Date V isits Requested Visits Authorized [id number] Closed Consult, Test & Treat 09/24/2017 09/24/2018 1 1 Encounter Details Date Type Department Care Team (Late st Contact Info) Description 10/23/2017 11:00 AM EST Office Visit [place] [address] Jacek Smith III, MD [facility] [place] [address] Throat pain Social History Tobacco Use Types Packs/Day Years Used Date Smoking Tobacco: Former Cigarettes Smokeless Tobacco: Never Comments:8 years ago Sex and Gender Information Value Date Recorded Sex Assigned at Not on file Gender Identity Not on file Sexual Orientation Not on file documented as of this encounter Last Filed Vital Signs Vital Sign Reading Time Taken Comments Blood Pressure - - Pulse - - Temperature - - Respiratory Rate - - Oxygen Saturation - - Inhaled Oxygen Concentration - - Weight 72.6 kg (160 lb) 10/23/2017 10:55 AM EST Height 157.5 cm (5' 2) 10/23/2017 10:55 AM EST Body Mass Index 29.26 10/23/2017 10:55 AM EST documented in this encounter Progress Notes * Jacek Smith III, MD - 10/23/2017 11:00 AM EST Otolaryngology Outpatient Consultation Note Date of Visit: 10/23/2017 Location of Visit: Otolaryngology Clinic, [facility] Patient: Crystal Felder ([id number]; 1965) Primary Care Provider: Ping Garcia APRN Referring Provider: Isaiah Mcpherson Reason for Visit: Crystal is a 52 y.o. female seen at the request of Isaiah Mcpherson in consultation for throat pain. History of Present Illness: Crystal reports a several month history of essentially constant left throat/neck pain, without hemoptysis, dysphagia, or dysphonia. She denies GERD symptoms. About three weeks ago the pain resolved, and she has not had any more whatsoever. Past Medical History: History reviewed. No pertinent past medical history. Past Surgical History: History reviewed. No pertinent surgical history. Medications: Current Outpatient Prescriptions on File Prior to Visit Medication Sig Dispense Refill ??? Adalimumab (HUMIRA PEN) 40 mg/0.8 mL Pen Injector Kit Inject 0.8 mLs subcutaneously every 14 days. 3 kit 1 ??? methotrexate 2.5 mg Tablet TAKE EIGHT TABLETS BY MOUTH ONCE WEEKLY, CAN TAKE WITHOUT REGARD TO FOOD, CALL CLINIC BEFORE STARTING MEDICATION 104 tablet 3 ??? citalopram (CELEXA) 20 mg Tablet daily. 2 ??? meloxicam (MOBIC) 7.5 mg Tablet Take 1 tablet by mouth daily. 30 tablet 12 ??? folic acid (FOLVITE) 1 mg Tablet TAKE ONE TABLET BY MOUTH EVERY DAY 90 tablet 3 No current facility-administered medications on file prior to visit. Allergies: Review of patient's allergies indicates no known allergies. Social History: Lives in [facility] [id number] Tobacco:former Alcohol:never Other: Immunizations UTD. Family History: History reviewed. No pertinent family history. Review of Systems: Pertinent positive findings discussed above. No other findings on review of constitutional, visual, cardiovascular, respiratory, gastrointestinal, genitourinary, musculoskeletal, dermatologic, neurological, psychiatric, endocrine, hematologic or immunologic systems. Physical Examination: Vitals: Height 157.5 cm (5' 2), weight 72.6 kg (160 lb). General: No acute distress. Face: Full and symmetric facial movement. No dysmorphic facial features. Eyes: Periocular structures and conjunctiva healthy without lesions. Pupils are equal, round, and reactive to light. Extraocular movement is full and intact. No dysconjugate gaze. No evidence of nystagmus. Ears: Auricles symmetric without lesions. External auditory canals clear. Right tympanic membrane normal, right middle ear normal. Left tympanic membrane normal, left middle ear normal. Nose: Patent anteriorly with adequate airflow, healthy pink mucosa. Septum is midline without significant deviation. Inferior turbinates normal Mouth: Lips and gingiva pink, moist, without lesions. Dentition healthy. Tongue and floor of mouth soft without lesions or masses. Hard palate without lesions. Pharynx: Soft palate without lesions. Uvula is intact. Oropharynx symmetric. Larynx: Vocal mobility and morphology normal. Neck: Soft, supple, without significant lymphadenopathy. Thyroid gland without masses or asymmetry.Trachea midline without deviation. Lymphatic: Negative for additional peripheral lymphadenopathy or lymphedema. Neurologic: Cranial nerves II-XII intact and symmetric. Procedure - Flexible Fiberoptic Laryngoscopy: Topical anesthetic applied to the nasal cavity. Patient tolerated the procedure well without complication. Findings: Nasal Cavity: Normal Nasopharynx: Normal Oropharynx: Normal Larynx: Normal vocal mobility and morphology Hypopharynx: Normal Impression: Normal head and neck examination. 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 She will return if there is a recurrence. documented in this encounter Plan of Treatment Upcoming Encounters Date Type Department Care Team (Late st Contact Info) Description 07/21/2024 1:00 PM EDT Office [place] [address] Isaiah Mcpherson MD [facility] [place] [address] Scheduled Referrals Name Type Priority Associated Diagnoses Orde r Schedule Referral to ENT Outpatient Referral Routine High risk medication use Rheumatoid arthritis involving multiple sites with positive rheumatoid factor Chronic throat pain Ordered: 09/24/2017 documented as of this encounter Visit Diagnoses Diagnosis Throat pain documented in this encounter Care Teams Radioactivity Technician Relationship Specialty Start Date End Date Ping Garcia APRN [address] [place] [address] PCP - General Family Medicine 01/04/17 06/02/19 documented as of this encounter
--- OUTSIDE RECORDS SUMMARY | 2024-06-19 00:21 | XMS_ITS | Encounter Summary ---
Author Organization [facility] [place] [address] Care Team Providers Care Alteration Hand Name Role Phone JosePing Maddie HINOJOSA Primary Care Provider [phone] [phone] Reason for Visit * Reason Onset Date Comments Other 11/18/2018 Encounter Details Date Type Department Care Team (Late st Contact Info) Description 11/18/2018 Telephone [place] [phone] Alfred Barcenas RN Other Social History Tobacco Use Types Packs/Day Years Used Date Smoking Tobacco: Former Cigarettes Smokeless Tobacco: Never Comments:8 years ago Sex and Gender Information Value Date Recorded Sex Assigned at Not on file Gender Identity Not on file Sexual Orientation Not on file documented as of this encounter Miscellaneous Notes * Telephone Encounter - Sebastian Holliday - 11/19/2018 3:38 PM EST I sent the PA via fax marked as Urgent! I'll keep everyone updated! * Telephone Encounter - Alfred Barcenas RN - 11/18/2018 3:29 PM EST States has not had Humira in a month and a half. Patient seeks update on PA. * Telephone Encounter - Alfred Barcenas RN - 11/18/2018 9:04 AM EST Patient calls clinic, leaves message requesting call back. Returned call. Unavailable. Message left with call back number provided. documented in this encounter Plan of Treatment Upcoming Encounters Date Type Department Care Team (Late st Contact Info) Description 07/21/2024 1:00 PM EDT Office [place] [address] Isaiah Mcpherson MD [facility] [place] [address] documented as of this encounter Visit Diagnoses Not on filedocumented in this encounter Care Teams Alteration Hand Relationship Specialty Start Date End Date Ping Garcia APRN [address] [place] [address] PCP - General Family Medicine 01/04/17 06/02/19 documented as of this encounter
--- OUTSIDE RECORDS SUMMARY | 2024-06-19 00:21 | XMS_ITS | Encounter Summary ---
Author [facility] [place] [address] Care Team Providers Care Manager Lean Name Role Phone Héctor Jennifer Coffey APRN Primary Care Provider [phone]- [phone] Reason for Visit * Reason Onset Date Comments Prior Authorization 10/30/2016 Humira pen - Approved Encounter Details Date Type Department Care Team (Late st Contact Info) Description 10/30/2016 [place] [phone] Bianka Llamas Prior Authorization (Humira pen - Approved) Social History Tobacco Use Types Packs/Day Years Used Date Smoking Tobacco: Former Smokeless Tobacco: Never Sex and Gender Information Value Date Recorded Sex Assigned at Not on file Gender Identity Not on file Sexual Orientation Not on file documented as of this encounter Miscellaneous Notes * Telephone Encounter - Bianka Llamas - 10/30/2016 12:35 PM EST Medication Prior Authorization Dr. Mcpherson Medication name/dose/directions: Adalimumab (HUMIRA PEN) 40 mg/0.8 mL Pen Injector Kit [[id number]], Inject 0.8 mLs subcutaneously every 14 days Rationale for request: Rheumatoid arthritis Health plan: [place] Authorizing manufacturer's service representative name: n/a Faxed to health plan on: 09/19/16 Health plan decision: Approved Quantity approved: 12/25 Authorization number: [id number] Start date: 09/19/16 End date: 09/19/17 Patient notified? n/a Pharmacy notified? n/a documented in this encounter Plan of Treatment Upcoming Encounters Date Type Department Care Team (Late st Contact Info) Description 07/21/2024 1:00 PM EDT Office [place] [address] Isaiah Mcpherson MD [facility] [place] [address] documented as of this encounter Visit Diagnoses Not on filedocumented in this encounter Care Teams Manager Lean Relationship Specialty Start Date End Date Jennifer Anaya APRN [facility] [place] [address] PCP - General 08/17/11 01/03/17 documented as of this encounter
--- OUTSIDE RECORDS SUMMARY | 2024-06-19 00:21 | XMS_ITS | Encounter Summary ---
Author Organization [facility] [place] [address] Care Team Providers Care Ferruler Name Role Phone Ping Garcia APRN Primary Care Provider +1 -[phone] Encounter Details Date Type Department Care Team (Late st Contact Info) Description 09/21/2017 Orders [place] [address] Isaiah Mcpherson MD [facility] [place] [address] High risk medication use; Chronic fatigue; Oropharyngeal dysphagia; Throat pain; Left cervical lymphadenopathy Social History Tobacco Use Types Packs/Day Years [...] 1:00 PM EDT Office [place] [address] Isaiah Mcpherson MD [facility] [place] [address] documented as of this encounter Visit Diagnoses Diagnosis High risk medication use Encounter for long-term (current) use of other medications Chronic fatigue Other malaise and fatigue Oropharyngeal dysphagia Dysphagia, oropharyngeal phase Throat pain Left cervical lymphadenopathy Enlargement of lymph nodes documented in this encounter Care Teams Ferruler Relationship Specialty Start Date End Date Ping Garcia APRN [address] [place] [address] PCP - General Family Medicine 01/04/17 06/02/19 documented as of this encounter
--- OUTSIDE RECORDS SUMMARY | 2024-06-19 00:21 | XMS_ITS | Encounter Summary ---
Author Organization [facility] Address [facility] [place] [address] Care Team Providers Care Sword Swallower Name Role Phone Ping Garcia APRN Primary Care Provider +1 -[phone] Encounter Details Date Type Department Care Team ([facility] Contact Info) Description 03/03/2019 12:51 PM EDT Hospital Encounter XRay at [address] [place] [address] Isaiah Mcpherson MD [facility] [place] [address] Iliac crest bone pain Discharge Disposition: Home Social History Tobacco [...] Upcoming Encounters Date Type Department Care Team ([facility] Contact Info) Description 07/21/2024 1:00 PM EDT Office [place] [address] Isaiah Mcpherson MD [facility] [place] [address] documented as of this encounter Procedures Procedure Name Priority Date/Time Associated Diagnosis Comments XR LUMBAR SPINE 2 OR 3 VIEWS Routine 03/03/2019 1:12 PM EDT Iliac crest bone pain documented in this encounter Results * XR Lumbar Spine 2 Or 3 Views (Generic) (03/03/2019 1:12 PM EDT) Anatomical Region Laterality Modality L-spine N/A Digital Radiogra phy Impressions 03/03/2019 2:26 PM EDT FINDINGS/IMPRESSION: There [...] report, please contact the number below. ? Narrative 03/03/2019 2:26 PM EDT EXAMINATION: XR [...] this report, please contact the number below. 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
--- OUTSIDE RECORDS SUMMARY | 2024-06-19 00:21 | XMS_ITS | Encounter Summary ---
Author Organization [facility] [place] [address] Care Team Providers Care Mails Supervisor Name Role Phone Ping Garcia ASHISH Primary Care Provider [phone] -[phone] Reason for Visit * Reason Onset Date Comments Other 11/14/2018 Prior Authorization 11/14/2018 humira Encounter Details Date Type Department Care Team (Late st Contact Info) Description 11/14/2018 [place] [phone] Alfred Barcenas RN Other; Prior Authorization (say) Social History Tobacco Use Types Packs/Day Years Used Date Smoking Tobacco: Former Cigarettes Smokeless Tobacco: Never Comments:8 years ago Sex and Gender Information Value Date Recorded Sex Assigned at Not on file Gender Identity Not on file Sexual Orientation Not on file documented as of this encounter Miscellaneous Notes * Telephone Encounter - Alfred Barcenas RN - 11/17/2018 2:45 PM EST Images from the original note were not included. Jake Ulrich Rory A, RN Caller: Unspecified (3 days ago, 11:32 AM) ?? Thank you Alfred! We have this in our queue, and will get to work on it! * Telephone Encounter - Alfred Barcenas RN - 11/14/2018 11:32 AM EST Medication issue. Humira. [place]. Requires PA. documented in this encounter Plan of Treatment Upcoming Encounters Date Type Department Care Team (Late st Contact Info) Description 07/21/2024 1:00 PM EDT Office [place] [address] Isaiah Mcpherson MD [facility] [address] documented as of this encounter Visit Diagnoses Not on filedocumented in this encounter Care Teams Mails Supervisor Relationship Specialty Start Date End Date Ping Garcia APRN [address] [place] [address] PCP - General Family Medicine 01/04/17 06/02/19 documented as of this encounter
--- OUTSIDE RECORDS SUMMARY | 2024-06-19 00:21 | XMS_ITS | Encounter Summary ---
Author Organization [facility] [place] [address] Care Team Providers Care Roller Leveler Operator Name Role Phone Ping Garcia APRN Primary Care Provider +1 -[phone] Reason for Visit * Reason Comments Medication Refill Encounter Details Date Type Department Care Team (Late st Contact Info) Description 08/18/2018 [place] [address] Isaiah Mcpherson MD [facility] [place] [address] Social History Tobacco Use Types Packs/Day Years [...] 1:00 PM EDT Office [place] [address] Isaiah Mcpherson MD [facility] [place] [address] documented as of this encounter Visit Diagnoses Not on filedocumented in this encounter Care Teams Roller Leveler Operator Relationship Specialty Start Date End Date Ping Garcia APRN [address] [place] [address] PCP - General Family Medicine 3/10/17 8/6/19 documented as of this encounter
--- OUTSIDE RECORDS SUMMARY | 2024-06-19 00:21 | XMS_ITS | Encounter Summary ---
Author Organization [facility] [place] [address] Care Team Providers Care Polystyrene Molding Machine Tender Name Role Phone Ping Garcia APRN Primary Care Provider +1 -[phone] Reason for Visit * Reason Onset Date Comments Medication Refill 11/14/2018 Encounter Details Date Type Department Care Team (Late st Contact Info) Description 11/14/2018 Ref[place] [address] Alfred Barcenas, RN Social History Tobacco Use Types Packs/Day [...] 1:00 PM EDT Office [place] [address] Isaiah Mcpherson MD [facility] [place] [address] documented as of this encounter Visit Diagnoses Not on filedocumented in this encounter Care Teams Polystyrene Molding Machine Tender Relationship Specialty Start Date End Date Ping Garcia APRN [address] [place] [address] PCP - General Family Medicine 01/04/17 06/02/19 documented as of this encounter
--- OUTSIDE RECORDS SUMMARY | 2024-06-19 00:21 | XMS_ITS | Encounter Summary ---
Author Organization [facility] [place] [address] Care Team Providers Care Tile Mason Name Role Phone Ping Garcia APRN Primary Care Provider +1 -[phone] Reason for Visit * Reason Comments Medication Refill Encounter Details Date Type Department Care Team (Late st Contact Info) Description 01/05/2018 Ref[place] [address] Isaiah Mcpherson MD [facility] [place] [address] Social History Tobacco Use Types Packs/Day Years [...] 1:00 PM EDT Office [place] [address] Isaiah Mcpherson MD [facility] [place] [address] documented as of this encounter Visit Diagnoses Not on filedocumented in this encounter Care Teams Tile Mason Relationship Specialty Start Date End Date Ping Garcia APRN [address] [place] [address] PCP - General Family Medicine 3/10/17 8/6/19 documented as of this encounter
--- OUTSIDE RECORDS SUMMARY | 2024-06-19 00:21 | XMS_ITS | Encounter Summary ---
Author Organization [facility] [place] [address] Care Team Providers Care Retrieval Specialist Name Role Phone Jennifer Anaya APRN Primary Care Provider +1- [phone] Reason for Visit * Reason Comments Medication Refill Encounter Details Date Type Department Care Team (Late st Contact Info) Description 11/06/2016 Ref[place] [address] Isaiah Mcpherson MD [facility] [place] [address] Social History Tobacco Use Types Packs/Day Years [...] 1:00 PM EDT Office [place] [address] Isaiah Mcpherson MD [facility] [place] [address] documented as of this encounter Visit Diagnoses Not on filedocumented in this encounter Care Teams Retrieval Specialist Relationship Specialty Start Date End Date Jennifer [place] [address] [place] [address] PCP - General 08/17/11 01/03/17 documented as of this encounter
--- OUTSIDE RECORDS SUMMARY | 2024-06-19 00:21 | XMS_ITS | Encounter Summary ---
Author Organization [facility] [place] [address] Care Team Providers Care Plate Slitter And Inspector Name Role Phone JosePing Maddie HINOJOSA Primary Care Provider +1 -[phone] Reason for Visit * Reason Onset Date Comments Other 11/10/2018 Encounter Details Date Type Department Care Team (Late st Contact Info) Description 11/10/2018 Tele[place] [address] Alfred Barcenas RN Other Social History Tobacco Use Types Packs/Day Years Used Date Smoking Tobacco: Former Cigarettes Smokeless Tobacco: Never Comments:8 years ago Sex and Gender Information Value Date Recorded Sex Assigned at Not on file Gender Identity Not on file Sexual Orientation Not on file documented as of this encounter Miscellaneous Notes * Telephone Encounter - Alfred Barcenas RN - 11/10/2018 3:49 PM EST Patient leaves message on nurse triage line requesting a call back. Returned call to patient, unavailable, left message with call back number provided. documented in this encounter Plan of Treatment Upcoming Encounters Date Type Department Care Team (Late st Contact Info) Description 07/21/2024 1:00 PM EDT [place] [address] Isaiah Mcpherson MD [facility] [place] [address] documented as of this encounter Visit Diagnoses Not on filedocumented in this encounter Care Teams Plate Slitter And Inspector Relationship Specialty Start Date End Date Ping Garcia APRN [address] [place] [address] PCP - General Family Medicine 01/04/17 06/02/19 documented as of this encounter
--- OUTSIDE RECORDS SUMMARY | 2024-06-19 00:21 | XMS_ITS | Encounter Summary ---
Author Organization [facility] [place] [address] Care Team Providers Care Biofuels Manager Name Role Phone Ping Garcia APRN Primary Care Provider +1 -[phone] Reason for Visit * Reason Onset Date Comments Medication Refill 09/03/2017 Encounter Details Date Type Department Care Team (Late st Contact Info) Description 09/03/2017 [place] [address] Shana Farias MA Social History Tobacco Use Types Packs/Day [...] 1:00 PM EDT [place] [address] Isaiah Mcpherson MD [facility] [place] [address] documented as of this encounter Visit Diagnoses Not on filedocumented in this encounter Care Teams Biofuels Manager Relationship Specialty Start Date End Date Ping Garcia APRN [address] [place] [address] PCP - General Family Medicine 01/04/17 06/02/19 documented as of this encounter
--- OUTSIDE RECORDS SUMMARY | 2024-06-19 00:21 | XMS_ITS | Encounter Summary ---
Author Organization [facility] [place] [address] Care Team Providers Care Headliner Installer Name Role Phone Ping Garcia APRN Primary Care Provider [phone] [phone] Encounter Details Date Type Department Care Team (Late st Contact Info) Description 03/05/2017 11:30 AM EDT Office [place] [address] Isaiah Mcpherson MD [facility] [place] [address] [place] [address] Primary osteoarthritis of both hips; Pain in right hip; Fibromyalgia; Rheumatoid arthritis, involving unspecified site, unspecified rheumatoid factor presence; High risk medication use; Sacro-iliac pain Social History Tobacco Use Types Packs/Day Years Used Date Smoking Tobacco: Former Cigarettes Smokeless Tobacco: Never Sex and Gender Information Value Date Recorded Sex Assigned at Not on file Gender Identity Not on file Sexual Orientation Not on file documented as of this encounter Last Filed Vital Signs Vital Sign Reading Time Taken Comments Blood Pressure 131/74 03/05/2017 11:43 AM EDT Pulse 55 03/05/2017 11:43 AM EDT Temperature - - Respiratory Rate 16 03/05/2017 11:43 AM EDT Oxygen Saturation 99% 03/05/2017 11:43 AM EDT Inhaled Oxygen Concentration - - Weight 71.7 kg (158 lb) 03/05/2017 11:43 AM EDT Height 157.5 cm (5' 2) 03/05/2017 11:43 AM EDT Body Mass Index 28.9 03/05/2017 11:43 AM EDT documented in this encounter Patient Instructions * Patient Instructions* Isaiah Mcpherson MD - 03/05/2017 11:30 AM EDT Get labs today at 3L. Call or myD for results. Continue methotrexate and Humira. Add back meloxicam each morning for your aches and pains in the low back and legs. (Rx sent in.) You can also take Tylenol in the afternoon when you need it. Follow up in 6 months. Call if not better. documented in this encounter Progress Notes * Isaiah Mcpherson MD - 03/05/2017 11:30 AM EDT Rheumatology Clinic: Dr. Mcpherson 03/05/2017 [id number] Crystal Edmonds is seen in follow-up of her rheumatoid arthritis and soft tissue pain. The last timeI saw her, due to insurance issues, she did not receive her Humira on time. She didn't feel any differently and decided to try and go without it. She continued on just her methotrexate. On exam back then on 09/05/2016, she had no evidence of synovitis. I told her was fine with me, but that it was certainly possible that off of the Humira she would start flaring. She now reports that she did just that, shortly after the visit. So she's now back on Humira after being off for a month and things areslowly calming back down. Having said that, she had a lot of musculoskeletal symptoms today, but they don't sound particularly inflammatory and that's been the case for some time now, i.e., most of her ongoing musculoskeletalissues are not related to her rheumatoid, which remains in good control. Today she complained of pain in her low back and both her lower extremities. These are separate issues. In terms of the back, this is in the area of the sacral dimples and SI joints, left greater than right. We have previous x-rays demonstrating degenerative disease of her hips (R>L) and her sacroiliac joints. In terms of the lower extremities, she's referring most specifically to the knees. They have been bad for about a month or so. This is the left knee worse than right knee. It's hard to pinpoint the exact location about the knee, but at least a portion of that is posterior in the popliteal fossa. She cites the example of working in the [employer] and standing for 4-5 hours. She really doesn'thave significant pain while she's doing that, but then she gets in the car to drive home, and by the time she is home she can hardly get out of the car because her legs are so stiff and achy. The [employer] is just the most extreme example. This is happening every day with regular activity, although admittedly she has quite the demanding lifestyle as she works on the [employer]. Going over the meds that she uses for analgesia, she's found that Tylenol works, but it's slow to kick in. When I asked her what about meloxicam, she wasn't quite clear what I was talking about. After further discussion it became clear that she had inadvertently stopped her meloxicam somewhere along the way. We told her that might be contributing to the recent deterioration in these mechanical/degenerative issues. I told her that we wouldn't expect methotrexate or Humira to help with them, and in fact nothing would really change the natural progression of those issues other than possibly stopping work. However Tylenol or meloxicam might provide her with some good symptomatic relief, particularly if she took it regularly. Patient Active Problem List Diagnosis Code ??? Rheumatoid arthritis M06.9 ??? Fibromyalgia M79.7 ??? Depression F32.9 ??? Iron deficiency anemia due to chronic blood loss D50.0 ??? Sleep disturbance G47.9 ??? Uveitis H20.9 ??? Anxiety F41.9 ??? Enthesopathy of hip region M76.899 ??? Perimenopausal N95.1 ??? Myalgia and myositis [id number] ??? Costochondritis M94.0 ??? High risk medication use Z79.899 ??? Pain in right hip M25.551 ??? Primary osteoarthritis of both hips M16.0 ??? Sacro-iliac pain M53.3 Medications 03/05/17 1147 Medication Sig Taking? citalopram (CELEXA) 20 mg Tablet daily. Yes methotrexate 2.5 mg Tablet TAKE EIGHT TABLETS BY MOUTH ONCE WEEKLY, CAN TAKE WITHOUT REGARD TO FOOD, CALL CLINIC BEFORE STARTING MEDICATION Yes Adalimumab (HUMIRA PEN) 40 mg/0.8 mL Pen Injector Kit Inject 0.8 mLs subcutaneously every 14 days. Yes folic acid (FOLVITE) 1 mg Tablet TAKE ONE TABLET BY MOUTH EVERY DAY Yes meloxicam (MOBIC) 7.5 mg Tablet Take 1 tablet by mouth daily. Physical Exam: She looks well and healthy. She is in good spirits spirits, although she is easily frustrated. Blood pressure 131/74, pulse 55, resp. rate 16, height 157.5 cm (5' 2), weight 71.7 kg (158 lb), SpO2 99 %. Skin: Clear. HEENT: Unremarkable. Lungs: Clear. Heart: Regular rhythm and rate without murmur, gallop, or rub. Abdomen: Benign. No masses, tenderness, or organomegaly. Extremities: No edema. Good distal pulses. Musculoskeletal: She has absolutely no synovitis in her hands or wrists. She has some minimal background degenerative disease. Her elbows and shoulders move well. In fact, she is hypermobile. Her hips actually move very well. Her knees move very well with minimal crepitance. In fact, she has hyperextensible knees, and she's noted lately that that flexibility has been giving her more problems. Shetries to avoid putting her knees in that position. She did have some slight fullness in the popliteal fossae suggesting perhaps some small Bennett's cysts. Her ankles were hypermobile, but otherwise fine. Her distal feet showed some DJD without synovitis. Neuro: Grossly intact. Assessment: We had a long discussion about her situation. First of all, I think her rheumatoid arthritis is doing well. As it turns out, she does need both methotrexate and Humira to maintain controlof that. She realizes that now. We both agreed that every once in a while, it is not a bad thing togo off medications if that proves that she does need them. She is due for methotrexate labs today. In terms of her other areas of pain, I think the low back pain is related to SI joint degenerative disease. Her knee pain is a little bit more obscure because her exam is entirely normal except for hypermobility. I suspect this is just mechanical pain. I don't think it's even worth getting x-rays at this point because I suspect they will be relatively normal and wouldn't change our treatment at all. She brought up the possibility of injections, but I would be very reluctant to inject her with her current level of symptoms and the current status of her knees, with cortisone. If she has persistent pain there we might consider Synvisc injections. In any case, I told her the most important thing to do is to get back on regular analgesics, including meloxicam at 7.5 mg a day and then Tylenol as needed in the afternoon. I told her she could eventake Tylenol in the afternoon regularly to provide her with better [id number] analgesia. I reassured her that it's not unusual to be on regular analgesics in someone with her particular problems. I asked her to call or myDH to go over the results of her lab work today. Otherwise I'll see her infollow-up in 6 months. She understood the plan. We gave the patient the following specific instructions: Patient Instructions Get labs today at 3L. Call or myDH for results. Continue methotrexate and Humira. Add back meloxicam each morning for your aches and pains in the low back and legs. (Rx sent in.) You can also take Tylenol in the afternoon when you need it. Follow up in 6 months. Call if not better. Over 30 minutes of the 40 minute follow-up were spent discussing these problems and their treatmentoptions in [id number] counseling. Orders Placed This Encounter Procedures ??? CBC (with Diff) ??? Comprehensive metabolic panel (non-fasting) ??? Sedimentation rate ??? CRP, acute inflammation ??? Hemogram ??? Differential, Automated Visit Diagnoses: 1. Primary osteoarthritis of both hips meloxicam (MOBIC) 7.5 mg Tablet 2. Pain in right hip meloxicam (MOBIC) 7.5 mg Tablet 3. Fibromyalgia meloxicam (MOBIC) 7.5 mg Tablet 4. Rheumatoid arthritis, involving unspecified site, unspecified rheumatoid factor presence CBC (with Diff) Comprehensive metabolic panel (non-fasting) Sedimentation rate CRP, acute inflammation meloxicam (MOBIC) 7.5 mg Tablet CBC (with Diff) Comprehensive metabolic panel (non-fasting) CRP, acute inflammation Sedimentation rate Hemogram Differential, Automated 5. High risk medication use CBC (with Diff) Comprehensive metabolic panel (non-fasting) CBC (with Diff) Comprehensive metabolic panel (non-fasting) Hemogram Differential, Automated 6. Sacro-iliac pain meloxicam (MOBIC) 7.5 mg Tablet Results for CRYSTAL EDMONDS ( ) Ref. Range 03/05/2017 12:57 WBC Latest Ref Range: 4.0 - 9.5 x10(3)/mcL 4.7 RBC Latest Ref Range: 4.00 - 5.21 x10(6)/mcL 4.09 Hemoglobin Latest Ref Range: 11.7 - 15.5 gm/dL 13.7 Hematocrit Latest Ref Range: 35.7 - 45.8 % 39.3 MCV Latest Ref Range: 82.6 - 94.4 fL 96.1 (H) MCH Latest Ref Range: 27.1 - 32.0 pg 33.5 (H) MCHC Latest Ref Range: 31.7 - 35.0 gm/dL 34.9 RDWSD Latest Ref Range: 37.0 - 46.0 fL 43.5 RDWCV Latest Ref Range: 11.5 - 14.1 % 12.6 Platelets Latest Ref Range: 145 - 357 x10(3)/mcL 232 MPV Latest Ref Range: 7.6 - 12.9 fL 10.3 nRBC % Auto Latest Units: % 0.0 nRBC Abs Auto Latest Ref Range: 0.000 - 0.000 x10(3)/mcL 0.000 Neutr Abs (ANC) Latest Ref Range: 1.70 - 6.10 x10(3)/mcL 2.18 Neutrophils % Latest Units: % 46.1 Immature Gran % Latest Units: % 0.40 Lymphocytes % Latest Units: % 35.1 Monocytes % Latest Units: % 14.2 Eosinophils % Latest Units: % 3.4 Basophils % Latest Units: % 0.8 Abbie Gran Abs Latest Ref Range: 0.00 - 0.04 x10(3)/mcL 0.02 Lymphocytes Abs Latest Ref Range: 0.9 - 3.2 x10(3)/mcL 1.7 Monocyte Abs Latest Ref Range: 0.3 - 0.9 x10(3)/mcL 0.7 Eosinophils Abs Latest Ref Range: 0.0 - 0.4 x10(3)/mcL 0.2 Basophils Abs Latest Ref Range: 0.0 - 0.1 x10(3)/mcL 0.0 Sed Rate Latest Ref Range: 0 - 20 mm/hr 9 Sodium Latest Ref Range: 135 - 145 mmol/L 139 Potassium Latest Ref Range: 3.5 - 5.0 mmol/L 4.3 Chloride Latest Ref Range: 98 - 107 mmol/L 100 CO2 Latest Ref Range: 22 - 31 mmol/L 28 Anion Gap Latest Ref Range: 5 - 15 mmol/L 11 BUN Latest Ref Range: 8 - 18 mg/dL 16 Creatinine Latest Ref Range: 0.70 - 1.20 mg/dL 0.84 Estimated GFR Latest Ref Range: >=60 >60 Glucose Lvl Latest Ref Range: 65 - 199 mg/dL 93 Calcium Latest Ref Range: 8.5 - 10.5 mg/dL 9.5 Total Protein Latest Ref Range: 6.1 - 8.0 gm/dL 7.3 Albumin Latest Ref Range: 3.2 - 5.2 gm/dL 4.3 Total Bilirubin Latest Ref Range: 0.2 - 1.3 mg/dL 0.3 Bili, Direct Latest Ref Range: 0.0 - 0.3 mg/dL 0.1 Alk Phos Latest Ref Range: 40 - 104 unit/L 53 AST Latest Ref Range: 0 - 30 unit/L 11 ALT Latest Ref Range: 0 - 30 unit/L 8 CRP Latest Ref Range: <=4.9 mg/L 1.0 documented in this encounter Plan of Treatment Upcoming Encounters Date Type Department Care Team (Late st Contact Info) Description 07/21/2024 1:00 PM EDT Office [place] [address] Isaiah Mcpherson MD [facility] [place] [address] documented as of this encounter Procedures Procedure Name Priority Date/Time Associated Diagnosis Comments CRP, ACUTE INFLAMMATION Routine 03/05/2017 12:57 PM EDT Rheumatoid arthritis, involving unspecified site, unspecified rheumatoid factor presence HEMOGRAM Routine 03/05/2017 12:57 PM EDT Rheumatoid arthritis, involving unspecified site, unspecified rheumatoid factor presence High risk medication use DIFFERENTIAL, AUTOMATED Routine 03/05/2017 12:57 PM EDT Rheumatoid arthritis, involving unspecified site, unspecified rheumatoid factor presence High risk medication use SEDIMENTATION RATE Routine 03/05/2017 12 :57 PM EDT Rheumatoid arthritis, involving unspecified site, unspecified rheumatoid factor presence CBC (WITH DIFF) Routine 03/05/2017 12:57 PM EDT Rheumatoid arthritis, involving unspecified site, unspecified rheumatoid factor presence High risk medication use COMPREHENSIVE METABOLIC PANEL Routine 03/05/2017 12:57 PM EDT Rheumatoid arthritis, involving unspecified site, unspecified rheumatoid factor presence High risk medication use documented in this encounter Results * Differential, Automated (03/05/2017 12:57 PM EDT) Neutrophil % 46.1 % [facility] Neutrophil Absolute 2.18 1.70 - 6.10 x10(3)/[facility] Lymph % 35.1 % [facility] Lymphocytes Abs 1.7 0.9 - 3.2 x10(3)/[facility] Monocyte % 14.2 % [facility] Monocyte Abs 0.7 0.3 - 0.9 x10(3)/[facility] Eos % 3.4 % [facility] Eosinophils Abs 0.2 0.0 - 0.4 x10(3)/[facility] Basophil % 0.8 % [facility] Baso Absolute 0.0 0.0 - 0.1 x10(3)/[facility] Immature Gran % 0.40 % [facility] Comment: Immature granulocytes(IG's)percentage and absolute count will include metamyelocytes, myelocytes, and promyelocytes. Blood smears from CBCs yielding IG's will be scanned manually for concordance. If this scan disagrees with the automated IG or if promyelocytes are noted, a manual differential will be performed. Immature Gran Absolute 0.02 0.00 - 0.04 x10(3)/mcL [facility] Blood specimen (specimen) 03/05/2017 12:57 PM EDT 03/05/2017 1:13 PM EDT Narrative Resulting Agency Comment Spec In Lab Isaiah Mcpherson MD HEMATOLOGY ORDERA BLES [facility] [place] [address] * (ABNORMAL) Hemogram (03/05/2017 12:57 PM EDT) White Blood Cell 4.7 4.0 - 9.5 x10(3)/[facility] Red Blood Cell 4.09 4.00 - 5.21 x10(6)/[facility] Hemoglobin 13.7 11.7 - 15.5 gm/dL [facility] Hematocrit 39.3 35.7 - 45.8 % [facility] Mean Cell Volume 96.1(H) 82.6 - 94.4 fL [facility] Mean Cell Hemoglobin 33.5(H) 27.1 - 32.0 pg [facility] Mean Cell Hemoglobin Concentration 34.9 31.7 - 35.0 gm/dL [facility] Platelet 232 145 - 357 x10(3)/[facility] RDW Standard Deviation 43.5 37.0 - 46.0 [facility] RDW coefficient of variation 12.6 11.5 - 14.1 % [facility] Mean Platelet Volume 10.3 7.6 - 12.9 [facility] NRBC% auto 0.0 % [facility] NRBC Absolute 0.000 0.000 - 0.000 x10(3)/[facility] Blood specimen (specimen) 03/05/2017 12:57 PM EDT 03/05/2017 1:13 PM EDT Narrative Resulting Agency Comment Spec In Lab Isaiah Mcpherson MD HEMATOLOGY ORDERA BLES Performing Organization Address [facility] Co de Phone Number [facility] [place] [address] * CRP, acute inflammation (03/05/2017 12:57 PM EDT) C-Reactive Protein 1.0 <=4.9 mg/L [facility] Blood specimen (specimen) 03/05/2017 12:57 PM EDT 03/05/2017 1:13 PM EDT Narrative Resulting Agency Comment Spec In Lab Isaiah Mcpherson MD CHEMISTRY ORDERAB LES Performing Organization Address [facility] Co de Phone Number [facility] [place] [address] * Sedimentation rate (03/05/2017 12:57 PM EDT) [facility] Signature Sedimentation Rate Automated 9 0 - 20 mm/hr [facility] Blood specimen (specimen) 03/05/2017 12:57 PM EDT 03/05/2017 1:13 PM EDT Narrative Resulting Agency Comment Spec In Lab Isaiah Mcpherson MD HEMATOLOGY ORDERA BLES Performing Organization Address [facility] Co de Phone Number [facility] [place] [address] * Comprehensive metabolic panel (non-fasting) (03/05/2017 12:57 PM EDT) Glucose 93 65 - 199 mg/dL [facility] Comment:Diabetes: >=200 mg/d L plus symptoms Blood Urea Nitrogen 16 8 - 18 mg/dL [facility] Creatinine 0.84 0.70 - 1.20 mg/dL [facility] Comment: Please note that the pediatric reference intervals supplied above were not validated at [facility]. Results from pediatric patients should be interpreted in conjunction to the patient's age, height and muscle mass. Sodium 139 135 - 145 mmol/L [facility] Potassium 4.3 3.5 - 5.0 mmol/L [facility] Comment: Please note: ??Patients with WBC >100,000 may have falsely elevated Potassium levels. ??For accurate Potassium quantification in these patients send serum separator tube (gold top) for subsequent determinations. ??Contact the Clinical Chemistry Laboratory if there are any questions. Chloride 100 98 - 107 mmol/L [facility] Carbon Dioxide 28 22 - 31 mmol/L [facility] Anion Gap 11 5 - 15 mmol/L [facility] Calcium 9.5 8.5 - 10.5 mg/dL [facility] Protein, Total 7.3 6.1 - 8.0 gm/dL [facility] Albumin 4.3 3.2 - 5.2 gm/dL [facility] Aspartate Aminotransferase 11 0 - 30 unit/L [facility] Alanine Aminotransferase 8 0 - 30 unit/L [facility] Alkaline Phosphatase 53 40 - 104 unit/L [facility] Bilirubin, Total 0.3 0.2 - 1.3 mg/dL [facility] Bilirubin, Direct 0.1 0.0 - 0.3 mg/dL [facility] Est Glomerular Filtration Rate >60 >=60 [facility] Comment: This estimated GFR (eGFR) value was calculated using the MDRD equation which has been validated on patients between the ages of 18 and 70. The MDRD should not be used to assess kidney function in patients < 18 years of age or in patients with extremes of body mass, or in patients with acute kidney failure. This value should be multiplied by 1.2 for patients. For further information please copy and paste the following links into your internet browser. [email or web address] Blood specimen (specimen) 03/05/2017 12:57 PM EDT 03/05/2017 1:13 PM EDT Narrative Resulting Agency Comment Spec In Lab Isaiah Mcpherson MD CHEMISTRY ORDERAB LES [facility] [place] [address] documented in this encounter Visit Diagnoses Diagnosis Primary osteoarthritis of both hips Primary localized osteoarthrosis, pelvic region and thigh Pain in right hip Pain in joint, pelvic region and thigh Fibromyalgia Mylagia and myositis, unspecified Rheumatoid arthritis, involving unspecified site, unspecified rheumatoid factor presence High risk medication use Encounter for long-term (current) use of other medications Sacro-iliac pain Disorders of sacrum documented in this encounter Care Teams Headliner Installer Relationship Specialty Start Date End Date Ping Garcia, [employer] YE[employer] SUPERVISOR [address] [place] [address] PCP - General Family Medicine 01/04/17 06/02/19 documented as of this encounter
--- OUTSIDE RECORDS SUMMARY | 2024-06-19 00:21 | XMS_ITS | Encounter Summary ---
Author Organization [facility] [place] [address] Care Team Providers Care Teamcenter Consultant Name Role Phone Ping Garcia APRN Primary Care Provider [phone] Reason for Visit * Reason Onset Date Comments Prior Authorization 11/19/2018 Humira Encounter Details Date Type Department Care Team (Late st Contact Info) Description 11/19/2018 [place] [address] Sebastian Holliday Prior Authorization (Humira) Social History Tobacco Use Types Packs/Day Years Used Date Smoking Tobacco: Former Cigarettes Smokeless Tobacco: Never Comments:8 years ago Sex and Gender Information Value Date Recorded Sex Assigned at Not on file Gender Identity Not on file Sexual Orientation Not on file documented as of this encounter Miscellaneous Notes * Telephone Encounter - Yaneth Saxena - 11/20/2018 3:25 PM EST [facility], Prior Authorization Approval APPROVAL DATES: 11-19-2018 TO 11-19-2019 SPECIFIC INS REQUIREMENT: n/a CASE/REFERENCE # APPROVAL NOTIFICATION RECEIVED VIA: phone * Telephone Encounter - Sebastian Holliday - 11/19/2018 3:33 PM EST [facility], Medication Prior Authorization Patient: Crystal Jaramillo Felder Patient : 1965 Patient Address: [address] [facility] [address] (home) Medication: Humira Pen 40mg/0.8mL PNKT Subscriber Insurance: [place] Physician: Isaiah Sommers Sent Via: FAX Gutierrez: Ref/Case/PA#: Medication Strength Frequency Requested: Humira Pen 40mg/0.8mL PNKT; Inject the contents of one pen(40mg) subcutaneously every 14 days Qty/Day Supply: 4 Pen/56 days New Start: NO Diagnosis & ICD-10 Code: Rheumatoid arthritis involving multiple sites with positive rheumatoidfactor M05.79 documented in this encounter Plan of Treatment Upcoming Encounters Date Type Department Care Team (Late st Contact Info) Description 07/21/2024 1:00 PM EDT Office [place] [address] Isaiah Mcpherson MD [facility] [place] [address] documented as of this encounter Visit Diagnoses Not on filedocumented in this encounter Care Teams Teamcenter Consultant Relationship Specialty Start Date End Date Ping Garcia APRN [address] [place] [id number] PCP - General Family Medicine 01/04/17 06/02/19 documented as of this encounter
--- OUTSIDE RECORDS SUMMARY | 2024-06-19 00:21 | XMS_ITS | Encounter Summary ---
Author Organization [facility] [place] [address] Care Team Providers Care Laborer [employer] Name Role Phone Mikayla Aquino MD Primary Care Provider [phone] Reason for Visit * Reason Comments Medication Refill Encounter Details Date Type Department Care Team (Late st Contact Info) Description 09/10/2017 Refill [place] [address] Angelica Ellington, RN [facility] [address] [place] [address] Social History Tobacco Use Types Packs/Day Years [...] PM EDT Office [place] [address] Isaiah Mcpherson MD [facility] [place] [address] documented as of this encounter Goals Goal Patient Goal Type Associated Problems Recent Progress Patient-Stated? Author [facility] Medication Compliance and Understanding Patient Facing Action Plan Not on track( 024 11:36 AM EDT) No Mckinley Noel, [facility] Note: Reduce Joint damage and flairs, measured by number of office visits for flairs/ x-rays, follow up every 3-6 months documented as of this encounter Visit Diagnoses Not on filedocumented in this encounter Care Teams Laborer [employer] Relationship Specialty Start Date End Date Mikayla Aquino MD PCP - General Family Medicine 07/06/20 documented as of this encounter
--- OUTSIDE RECORDS SUMMARY | 2024-06-19 00:21 | XMS_ITS | Encounter Summary ---
Author Organization [facility] [place] [address] Care Team Providers Care C D Stripper Name Role Phone Héctor Jennifer Coffey APRN Primary Care Provider [phone] Encounter Details Date Type Department Care Team (Late st Contact Info) Description 09/05/2016 11:00 AM EST Office [place] [phone] Isaiah Mcpherson MD [facility] [place] [address] Primary osteoarthritis of both hips; High risk medication use; Rheumatoid arthritis involving multiple sites with positive rheumatoid factor; Iron deficiency anemia due to chronic blood loss; Sacro-iliac pain Social History Tobacco Use Types Packs/Day Years Used Date Smoking Tobacco: Former Smokeless Tobacco: Never Sex and Gender Information Value Date Recorded Sex Assigned at Not on file Gender Identity Not on file Sexual Orientation Not on file documented as of this encounter Last Filed Vital Signs Vital Sign Reading Time Taken Comments Blood Pressure 108/64 09/05/2016 11:02 AM EST Pulse 60 09/05/2016 11:02 AM EST Temperature 36.3 ??C (97.3 ??F) 09/05/2016 11:[address] Respiratory Rate 18 09/05/2016 11:02 AM EST Oxygen Saturation 100% 09/05/2016 11:02 AM EST Inhaled Oxygen Concentration - - Weight 70.8 kg (156 lb) 09/05/2016 11:02 AM EST Height 157.5 cm (5' 2) 09/05/2016 11:02 AM EST Body Mass Index 28.53 09/05/2016 11:02 AM EST documented in this encounter Patient Instructions * Patient Instructions* Isaiah Mcpherson MD - 09/05/2016 11:00 AM EST Get labs today. Call for results. Stay off Humira for now. Continue other meds. Do exercises for low back. Follow up in 6 months. Call if problems. documented in this encounter Progress Notes * Isaiah Mcpherson MD - 09/05/2016 11:00 AM EST Rheumatology Clinic: Dr. Mcpherson 09/05/2016 [id number] Crystal Edmonds is seen in follow-up of her rheumatoid arthritis and soft tissue pain. The last timeshe was in, she was complaining of some low back/buttock pain. Most of that seemed to be coming from the SI area. By that point in time, we had already obtained an MRI that showed bilateral hip OA ofa mild degree, SI degenerative disease, and trochanteric bursitis/gluteal tendinitis. She continuesto have problems with this low back pain. We did put her on meloxicam last time, but she finds thathelps her general pain, but doesn't do all that much for this low back/pelvis pain. This particularly bothers her at night and she has trouble finding a comfortable position. Most importantly, she tells me that due to a delay in prior authorization, she has not had Humira in a month. Despite that, she's doing fine. She still on methotrexate and, of course, the meloxicam, but at this point she wonders if she really needs Humira and would like to try and continue without it. Since being off the Humira she doesn't really feel any differently, although she may be having alittle bit more pain in her wrists. 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 Patient Active Problem List Diagnosis Code ??? Rheumatoid arthritis M06.9 ??? Fibromyalgia M79.7 ??? Depression F32.9 ??? Iron deficiency anemia due to chronic blood loss D50.0 ??? Sleep disturbance G47.9 ??? Uveitis H20.9 ??? Anxiety F41.9 ??? Enthesopathy of hip region M76.899 ??? Perimenopausal N95.1 ??? Myalgia and myositis [id number] ??? Costochondritis M94.0 ??? High risk medication use Z79.899 ??? Pain in right hip M25.551 ??? Primary osteoarthritis of both hips M16.0 ??? Sacro-iliac pain M53.3 Medications 09/05/16 1105 Medication Sig Taking? methotrexate 2.5 mg Tablet TAKE EIGHT TABLETS BY MOUTH ONCE WEEKLY, CAN TAKE WITHOUT REGARD TO FOOD, CALL CLINIC BEFORE STARTING MEDICATION Yes meloxicam (MOBIC) 7.5 mg Tablet Take 1 tablet by mouth daily. Yes sertraline (ZOLOFT) 100 mg Tablet TAKE ONE TABLET BY MOUTH EVERY DAY Yes folic acid (FOLVITE) 1 mg Tablet Take 1 tablet by mouth daily. Yes Adalimumab (HUMIRA PEN) 40 mg/0.8 mL Pen Injector Kit Inject 0.8 mLs subcutaneously every 14 days. Patient not taking: Reported on 09/05/2016 busPIRone (BUSPAR) 10 mg Tablet Take 10 mg by mouth nightly. Physical Exam: She looks well. Blood pressure 108/64, pulse 60, temperature 36.3 ??C (97.3 ??F), resp. rate 18, height 157.5 cm (5' 2), weight 70.8 kg (156 lb), SpO2 100 %. Skin: Clear. HEENT: Unremarkable. Lungs: Clear. Heart: Regular rhythm and rate without murmur, gallop, or rub. Abdomen: Benign. No masses, tenderness, or organomegaly. Extremities: No edema. Good distal pulses. Musculoskeletal: She has absolutely no synovitis in her hands. She has some mild erythema and tenderness to the DIP joints, possibly representing some inflammatory OA there. But there is nothing going on at the PIPs, MCPs, or the wrists for that matter. Her elbows and shoulders move well. Her hips move well. She is not tender over the trochanteric bursae today. She is tender at the upper SI jointbilaterally today, worse on the right. Her knees move well. Her ankles are fine. Distal feet show no evidence of synovitis. Neuro: Grossly intact. Assessment: We had a long discussion about her situation, but basically I think she's doing very well off the Humira. It's only been about a month, so it's certainly still possible she may end up with a flare within the next few weeks. But we both agreed there is no problem just to stay off of it. She responds well to prednisone, so if she does flare and there is a delay in getting prior authorization, she can always go on a short course of prednisone. We will check labs today. We also recommended that she do the exercises for the low back that we gave her last time. She hasn't been good about that, although she does tell me she stretches every night to try and loosen up her back. This sounds like just typical work-related muscle tightness and she came up with the stretching strategy on her own. I encouraged her to expand the exercise she does by using the handout that we gave her last time. I'll see her back in 6 months. She understood the plan. We gave the patient the following specific instructions: Patient Instructions Get labs today. Call for results. Stay off Humira for now. Continue other meds. Do exercises for low back. Follow up in 6 months. Call if problems. Over 20 minutes of the 25 minute follow-up were spent discussing these problems and their treatmentoptions in [id number] counseling. Orders Placed This Encounter Procedures ??? CBC (with Diff) ??? Comprehensive metabolic panel (non-fasting) ??? High Sensitivity CRP ??? Sedimentation rate ??? Ferritin ??? Hemogram ??? Differential, Automated Visit Diagnoses: 1. Primary osteoarthritis of both hips 2. High risk medication use CBC (with Diff) Comprehensive metabolic panel (non-fasting) CBC (with Diff) Comprehensive metabolic panel (non-fasting) Hemogram Differential, Automated 3. Rheumatoid arthritis involving multiple sites with positive rheumatoid factor CBC (with Diff) Comprehensive metabolic panel (non-fasting) High Sensitivity CRP Sedimentation rate Ferritin CBC (with Diff) Comprehensive metabolic panel (non-fasting) High Sensitivity CRP Sedimentation rate Ferritin Hemogram Differential, Automated 4. Iron deficiency anemia due to chronic blood loss Ferritin Ferritin 5. Sacro-iliac pain Results for CRYSTAL EDMONDS ( ) Ref. Range 09/05/2016 12:34 WBC Latest Ref Range: 4.0 - 9.5 x10(3)/mcL 4.6 RBC Latest Ref Range: 4.00 - 5.21 x10(6)/mcL 3.99 (L) Hemoglobin Latest Ref Range: 11.7 - 15.5 gm/dL 12.8 Hematocrit Latest Ref Range: 35.7 - 45.8 % 38.3 MCV Latest Ref Range: 82.6 - 94.4 fL 96.0 (H) MCH Latest Ref Range: 27.1 - 32.0 pg 32.1 (H) MCHC Latest Ref Range: 31.7 - 35.0 gm/dL 33.4 RDWSD Latest Ref Range: 37.0 - 46.0 fL 44.4 RDWCV Latest Ref Range: 11.5 - 14.1 % 12.7 Platelets Latest Ref Range: 145 - 357 x10(3)/mcL 285 MPV Latest Ref Range: 7.6 - 12.9 fL 10.3 nRBC % Auto Latest Units: % 0.0 nRBC Abs Auto Latest Ref Range: 0.000 - 0.000 x10(3)/mcL 0.000 Neutr Abs (ANC) Latest Ref Range: 1.70 - 6.10 x10(3)/mcL 2.39 Neutrophils % Latest Units: % 52.3 Immature Gran % Latest Units: % 0.20 Lymphocytes % Latest Units: % 32.8 Monocytes % Latest Units: % 10.5 Eosinophils % Latest Units: % 3.5 Basophils % Latest Units: % 0.7 Abbie Gran Abs Latest Ref Range: 0.00 - 0.04 x10(3)/mcL 0.01 Lymphocytes Abs Latest Ref Range: 0.9 - 3.2 x10(3)/mcL 1.5 Monocyte Abs Latest Ref Range: 0.3 - 0.9 x10(3)/mcL 0.5 Eosinophils Abs Latest Ref Range: 0.0 - 0.4 x10(3)/mcL 0.2 Basophils Abs Latest Ref Range: 0.0 - 0.1 x10(3)/mcL 0.0 Sed Rate Latest Ref Range: 0 - 20 mm/hr 10 Sodium Latest Ref Range: 135 - 145 mmol/L 139 Potassium Latest Ref Range: 3.5 - 5.0 mmol/L 4.3 Chloride Latest Ref Range: 98 - 107 mmol/L 103 CO2 Latest Ref Range: 22 - 31 mmol/L 25 Anion Gap Latest Ref Range: 5 - 15 mmol/L 11 BUN Latest Ref Range: 8 - 18 mg/dL 18 Creatinine Latest Ref Range: 0.70 - 1.20 mg/dL 0.86 Estimated GFR Latest Ref Range: >=60 >60 Glucose Lvl Latest Ref Range: 65 - 199 mg/dL 94 Calcium Latest Ref Range: 8.5 - 10.5 mg/dL 9.2 Total Protein Latest Ref Range: 6.1 - 8.0 gm/dL 7.0 Albumin Latest Ref Range: 3.2 - 5.2 gm/dL 4.2 Total Bilirubin Latest Ref Range: 0.2 - 1.3 mg/dL 0.3 Bili, Direct Latest Ref Range: 0.0 - 0.3 mg/dL 0.1 Alk Phos Latest Ref Range: 40 - 104 unit/L 49 AST Latest Ref Range: 0 - 30 unit/L 17 ALT Latest Ref Range: 0 - 30 unit/L 10 Ferritin Latest Ref Range: 30 - 400 ng/mL 45 CRP High Sens Latest Units: mg/L 1.6 documented in this encounter Plan of Treatment Upcoming Encounters Date Type Department Care Team (Late st Contact Info) Description 07/21/2024 1:00 PM EDT Office [place] [address] Isaiah Mcpherson MD [facility] [place] [address] documented as of this encounter Procedures Procedure Name Priority Date/Time Associated Diagnosis Comments HEMOGRAM Routine 09/05/2016 12:34 PM EST High risk medication use Rheumatoid arthritis involving multiple sites with positive rheumatoid factor DIFFERENTIAL, AUTOMATED Routine 09/05/2016 12:34 PM EST High risk medication use Rheumatoid arthritis involving multiple sites with positive rheumatoid factor SEDIMENTATION RATE Routine 09/05/2016 12 :34 PM EST Rheumatoid arthritis involving multiple sites with positive rheumatoid factor CBC (WITH DIFF) Routine 09/05/2016 12:34 PM EST High risk medication use Rheumatoid arthritis involving multiple sites with positive rheumatoid factor CRP, CARDIAC RISK (HS CRP) Routine 09/05/2016 12:34 PM EST Rheumatoid arthritis involving multiple sites with positive rheumatoid factor FERRITIN Routine 09/05/2016 12:34 PM EST Rheumatoid arthritis involving multiple sites with positive rheumatoid factor Iron deficiency anemia due to chronic blood loss COMPREHENSIVE METABOLIC PANEL Routine 09/05/2016 12:34 PM EST High risk medication use Rheumatoid arthritis involving multiple sites with positive rheumatoid factor documented in this encounter Results * Differential, Automated (09/05/2016 12:34 PM EST) Neutrophil % 52.3 % [facility] Neutrophil Absolute 2.39 1.70 - 6.10 x10(3)/[facility] Lymph % 32.8 % [facility] Lymphocytes Abs 1.5 0.9 - 3.2 x10(3)/[facility] Monocyte % 10.5 % [facility] Monocyte Abs 0.5 0.3 - 0.9 x10(3)/[facility] Eos % 3.5 % [facility] Eosinophils Abs 0.2 0.0 - 0.4 x10(3)/[facility] Basophil % 0.7 % [facility] Baso Absolute 0.0 0.0 - 0.1 x10(3)/[facility] Immature Gran % 0.20 % [facility] Comment: Immature granulocytes(IG's)percentage and absolute count will include metamyelocytes, myelocytes, and promyelocytes. Blood smears from CBCs yielding IG's will be scanned manually for concordance. If this scan disagrees with the automated IG or if promyelocytes are noted, a manual differential will be performed. Immature Gran Absolute 0.01 0.00 - 0.04 x10(3)/[facility] Blood specimen (specimen) 09/05/2016 12:34 PM EST 09/05/2016 12:43 PM EST Narrative Resulting Agency Comment Spec In Lab Isaiah Mcpherson MD HEMATOLOGY ORDERA BLES [facility] [place] [address] * (ABNORMAL) Hemogram (09/05/2016 12:34 PM EST) White Blood Cell 4.6 4.0 - 9.5 x10(3)/ L [facility] Red Blood Cell 3.99(L) 4.00 - 5.21 x10(6)/mc L [facility] Hemoglobin 12.8 11.7 - 15.5 gm/dL [facility] Hematocrit 38.3 35.7 - 45.8 % [facility] Mean Cell Volume 96.0(H) 82.6 - 94.4 fL [facility] Mean Cell Hemoglobin 32.1(H) 27.1 - 32.0 pg [facility] Mean Cell Hemoglobin Concentration 33.4 31.7 - 35.0 gm/dL [facility] Platelet 285 145 - 357 x10(3)/ L [facility] RDW Standard Deviation 44.4 37.0 - 46.0 [facility] RDW coefficient of variation 12.7 11.5 - 14.1 % [facility] Mean Platelet Volume 10.3 7.6 - 12.9 [facility] NRBC% auto 0.0 % [facility] NRBC Absolute 0.000 0.000 - 0.000 x10(3)/[facility] Blood specimen (specimen) 09/05/2016 12:34 PM EST 09/05/2016 12:43 PM EST Narrative Resulting Agency Comment Spec In Lab Isaiah Mcpherson MD HEMATOLOGY ORDERA BLES [facility] [place] [address] * Ferritin (09/05/2016 12:34 PM EST) Pathologist [facility] Ferritin 45 30 - 400 ng/mL [facility] Comment: Pediatric reference ranges not verified at [facility], interpret with caution. Reference ranges for females greater than 50 years of age approach values for men, i.e., 30-400 ng/mL. Blood specimen (specimen) 09/05/2016 12:34 PM EST 09/05/2016 12:43 PM EST Narrative Resulting Agency Comment Spec In Lab Isaiah Mcpherson MD CHEMISTRY ORDERAB LES Performing Organization Address [facility] Co de Phone Number [facility] [place] [address] * Sedimentation rate (09/05/2016 12:34 PM EST) [facility] Sedimentation Rate Automated 10 0 - 20 mm/hr [facility] Blood specimen (specimen) 09/05/2016 12:34 PM EST 09/05/2016 12:43 PM EST Narrative Resulting Agency Comment Spec In Lab Isaiah Mcpherson MD HEMATOLOGY ORDERA BLES Performing Organization Address [facility] Co de Phone Number [facility] [place] [address] * High Sensitivity CRP (09/05/2016 12:34 PM EST) [facility] C-Reactive Protein High Sensitivity 1.6 mg/L [facility] Comment: Interpretations: 1) For accurate cardiac risk assessment, the average of 2 values >2 weeks apart should be obtained (ref 1&2). A value >10 mg/L indicates an inflammatory condition, concentrations >10 mg/L should not be used for cardiac risk assessment. ?<1.0 mg/L: low risk ?1.0 - 3.0 mg/L: moderate risk ?>3.0 mg/L: high risk groups for future cardiovascular events 2) The general reference range of apparently healthy individuals using this test is <5.0 mg/L (derived from the test package insert) References: 1. Yue MORENO et. al. ??AHA/CDC Scientific Statement: Markers of Inflammation and Cardiovascular Disease. ??Circulation 2003; 107:499-511 2. Ridker PM. ??Clinical applications of C-reactive protein for cardiovascular disease detection and prevention. ??Circulation 2003; 107:363-369 Blood specimen (specimen) 09/05/2016 12:34 PM EST 09/05/2016 12:43 PM EST Narrative Resulting Agency Comment Spec In Lab Isaiah Mcpherson MD CHEMISTRY ORDERAB LES [facility] [place] [address] * Comprehensive metabolic panel (non-fasting) (09/05/2016 12:34 PM EST) Glucose 94 65 - 199 mg/dL [facility] Comment:Diabetes: >=200 mg/d L plus symptoms Blood Urea Nitrogen 18 8 - 18 mg/dL [facility] Creatinine 0.86 0.70 - 1.20 mg/dL [facility] Comment: Please note that the pediatric reference intervals supplied above were not validated at [facility]. Results from pediatric patients should be interpreted in conjunction to the patient's age, height and muscle mass. Sodium 139 135 - 145 mmol/L [facility] Potassium 4.3 3.5 - 5.0 mmol/L [facility] Comment: Please note: ??Patients with WBC >100,000 may have falsely elevated Potassium levels. ??For accurate Potassium quantification in these patients send serum separator tube (gold top) for subsequent determinations. ??Contact the Clinical Chemistry Laboratory if there are any questions. Chloride 103 98 - 107 mmol/L [facility] Carbon Dioxide 25 22 - 31 mmol/L [facility] Anion Gap 11 5 - 15 mmol/L [facility] Calcium 9.2 8.5 - 10.5 mg/dL [facility] Protein, Total 7.0 6.1 - 8.0 gm/dL [facility] Albumin 4.2 3.2 - 5.2 gm/dL [facility] Aspartate Aminotransferase 17 0 - 30 unit/L [facility] Alanine Aminotransferase 10 0 - 30 unit/L [facility] Alkaline Phosphatase 49 40 - 104 unit/L [facility] Bilirubin, Total 0.3 0.2 - 1.3 mg/dL [facility] Bilirubin, Direct 0.1 0.0 - 0.3 mg/dL [facility] Est Glomerular Filtration Rate >60 >=60 [facility] Comment: This estimated GFR (eGFR) value [...] the following links into your internet browser. [email or web address] Blood specimen (specimen) 09/05/2016 12:34 PM EST 09/05/2016 12:43 PM EST Narrative Resulting Agency Comment Spec In Lab Isaiah Mcpherson MD CHEMISTRY ORDERAB LES Performing Organization Address City/State/[facility] Co de Phone Number [facility] [place] [phone] documented in this encounter Visit Diagnoses Diagnosis Primary osteoarthritis of both hips Primary localized osteoarthrosis, pelvic region and thigh High risk medication use Encounter for long-term (current) use of other medications Rheumatoid arthritis involving multiple sites with positive rheumatoid factor Iron deficiency anemia due to chronic blood loss Iron deficiency anemia secondary to blood loss (chronic) Sacro-iliac pain Disorders of sacrum documented in this encounter Care Teams C D Stripper Relationship Specialty Start Date End Date Jennifer Anaya APRN [facility] [place] [address] PCP - General 08/17/11 01/03/17 documented as of this encounter
--- OUTSIDE RECORDS SUMMARY | 2024-06-19 00:21 | XMS_ITS | Encounter Summary ---
Author Organization [facility] [place] [address] Care Team Providers Care Tobacco Sampler Name Role Phone Ping Garcia APRN Primary Care Provider [phone] Encounter Details Date Type Department Care Team (Late st Contact Info) Description 03/03/2019 11:30 AM EDT Office [place] [address] Isaiah Mcpherson MD [facility] [place] [address] [place] [address] High risk medication use; Iron deficiency anemia due to chronic blood loss; Rheumatoid arthritis involving multiple sites with positive rheumatoid factor; Coccyx pain; Iliac crest bone pain; Chronic fatigue Social History Tobacco Use Types Packs/Day Years Used Date Smoking Tobacco: Former Cigarettes Smokeless Tobacco: Never Comments:8 years ago Sex and Gender Information Value Date Recorded Sex Assigned at Not on file Gender Identity Not on file Sexual Orientation Not on file documented as of this encounter Last Filed Vital Signs Vital Sign Reading Time Taken Comments Blood Pressure 117/54 03/03/2019 11:21 AM EDT Pulse 61 03/03/2019 11:21 AM EDT Temperature 36.3 ??C (97.4 ??F) 03/03/2019 11:21 AM E DT Respiratory Rate - - Oxygen Saturation 98% 03/03/2019 11:21 AM EDT Inhaled Oxygen Concentration - - Weight 67.6 kg (149 lb) 03/03/2019 11:21 AM EDT Height 157.5 cm (5' 2) 03/03/2019 11:21 AM EDT Body Mass Index 27.25 03/03/2019 11:21 AM EDT documented in this encounter Patient Instructions * Patient Instructions* Isaiah Mcpherson MD - 03/03/2019 11:30 AM EDT Get labs and x-rays today at 3L. Call or myDH for results if you don't hear from us by next week. Restart meloxicam. Otherwise, continue current regimen. Further recommendations based on the test results. Get information on-line or at a local social security office about disability. Follow up in 6 months. Call if problems or concerns. documented in this encounter Progress Notes * Isaiah Mcpherson MD - 03/03/2019 11:30 AM EDT Rheumatology Clinic: Dr. Mcpherson 03/03/2019 [id number] Crystal Edmonds is seen in follow-up of her rheumatoid arthritis and osteoarthritis. Her rheumatoid arthritis seems relatively quiet today. Unfortunately, because of some problems with her insurance and pharmacy, she was off Humira for 3 months. She continued on methotrexate. After that experience, s he decided [place] [facility] is been back on it and feels better. She does have some inflammatory symptoms in her hands and her feet associated with a bit of morning stiffness. But this is tolerable. However, she has had a a lot of other more mechanical/degenerative pain, including in particular her low back in 2 areas. This includes the coccyx way down at the base, almost as if it is on the internal side of the hook of the coccyx, pushing up or out. There was no trauma. Her other painful area in the back is at the left iliac crest in the area of the SI joint on that side. Interestingly both of these areas bother her most when she first gets out of a chair. The coccyx pain is there much of the time. The left pelvic pain is more episodic. Her left knee has also been bothering her recently and that is felt to be related to osteoarthritis. In fact, when she was in last time on 08/29/2018, we did a cortisone injection in that left knee and that was very helpful and the benefits have held up. 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 In addition to it being very painful for her to do certain tasks, the exhaustion is really profound. She finds that she is having to take a nap before she can even consider doing anything. These naps generally just last 20 minutes during the day, but if it was up to her, she would sleep for days at a time. In fact Saturday is a relatively easy day on the form and she spends most of the day sleeping to catch up. Although she says theydo not pressure her, she believes the family is concerned. Apparently they are right on the financial edge and they count on her contribution. 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 There are no hired hands. For that reason, if someone is not able to perform their duties, someone else will suffer and she feels very guilty about that. 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 After she recovered from that, she had a lot of difficulty walking, more so than at baseline. Fortunately she is still mentally sound. But the patient has to basically shadow her around thehouse to make sure she does not fall and injure herself. She has also been having pain elsewhere. Her left middle toe has been numb and painful. That just started yesterday. She has more chronic pain in the chest. She gestures to the right costochondral junction. We talked about this in the distant past. She has a sudden onset of pain in these areas and she is tender over the costochondral junctions. It is worse with a deep breath. This certainly does not sound cardiac. She also has a lot of achiness and stiffness when she gets into bed at night and has to do a lot of stretching to allow her limbs to feel good and enable her to get to sleep. Thankfully, the 2 types of back pain do not bother her when she is sleeping. She brought up today that she is considering applying for Social Security disability and she wantedto know what I thought about that. She became tearful when talking about this. She is stuck betweenbeing a burden on her family and not putting in what she considers to be her share of the work around the house and farm, but she also feels guilty about going on disability, should it come to that, and living off the government. Patient Active Problem List Diagnosis Code ??? [...] ??? Chronic throat pain R07.0, G89.29 Medications 03/03/19 1122 Medication Sig Taking? Adalimumab (HUMIRA PEN) 40 [...] Tablet daily. Yes Physical Exam: She looks in general well, although she is quite tearful when talking about the possibility of going on disability. She does have some pain when she first gets up out of the chair thatshe localizes to the lower back and coccyx. Blood pressure 117/54, pulse 61, temperature 36.3 ??C (97.4 ??F), height 157.5 cm (5' 2), weight 67.6 kg (149 lb), SpO2 98 %. myD-H RAPID-3 Responses 09/05/2016 03/04/2017 09/11/2017 08/29/2018 03/03/2019 RAPID-3 Function 1 2 2 2.66 3 RAPID-3 Pain 2 5.5 3.5 2.5 4 RADIP-3 Global 1 5 5 2.5 3 RAPID-3 Total Scores 4 (Low) 12.5 (High) 10.5 (Moderate) 7.66 (Moderate) 10 (Moderate) Skin: Clear. HEENT: PERRLA, EOM positive. Pharynx clear.. Lungs: Clear. Heart: Regular rhythm and rate without murmur, gallop, or rub. Abdomen: Benign. No masses, tenderness, or organomegaly. Extremities: No edema. Good distal pulses. Musculoskeletal: She has no synovitis in her hands. She does have background degenerative disease, particularly at the thumb joints. MCPs and wrists move well. Her elbows and shoulders move well. Examining her low back, the area of pain on the left side is at the pelvic brim in the area of the leftSI joint. She is minimally tender there. Her other painful areas at the very tip of the coccyx, in fact around the anterior pushing back is where one elicits the most pain. Her hips move well. Her knees have some crepitance on range of motion, but move well. She has no pain on range of motion of the left knee, which is a distinct change from last time. Her ankles are fine. She has some squeeze ten derness at the midfoot, right greater than left, with no obvious synovitis. Distal feet show DJD without synovitis at the moment. Neuro: Grossly intact. Assessment: We had a long discussion about her situation, but came up with the plan outlined below.We will check routine lab work for methotrexate. We will also get x-rays of her lumbar spine and her coccyx. I recommend that she restart meloxicam, but otherwise continue the current regimen. We will make further recommendations when we get the tests back. In terms of the Social Security disability option, I told her to collect more information first. I would be happy to help her down the road with her supportive letter if necessary. I will see her back in 6 months. She understood the plan. We gave the patient the following specific instructions: Patient Instructions Get labs and x-rays today at 3L. Call or myD for results if you don't hear from us by next week. Restart meloxicam. Otherwise, continue current regimen. Further recommendations based on the test results. Get information on-line or at a local social security office about disability. Follow up in 6 months. Call if problems or concerns. Over 30 minutes of the 40 minute follow-up were spent discussing these problems and their treatmentoptions in [id number] counseling. Orders Placed This Encounter Procedures ??? XR Lumbar Spine 2 Or 3 Views (Generic) ? ? XR Sacrum & Coccyx (Generic) ??? CBC (with Diff) ??? Comprehensive metabolic panel (non-fasting) ??? Iron and TIBC ??? Ferritin ??? GABRIELLE (LEB/CGP) ??? Extractable Nuclear Antigen (HESHAM) Ab ??? DNA Antibody (Double-Stranded) ??? TSH ??? Sedimentation rate ??? CRP, acute inflammation ??? Vitamin B12 ??? Folate, serum ??? Hemogram ??? Differential, Automated Visit Diagnoses: 1. High risk medication use 2. Iron deficiency anemia due to chronic blood loss 3. Rheumatoid arthritis involving multiple sites with positive rheumatoid factor 4. Coccyx pain 5. Iliac crest bone pain 6. Chronic fatigue Results for CRYSTAL EDMONDS ( ) as of 03/08/2019 10:14 Ref. Range 03/03/2019 13:40 WBC Latest Ref Range: 4.0 - 9.5 x10(3)/mcL 4.8 RBC Latest Ref Range: 4.00 - 5.21 x10(6)/mcL 3.88 (L) Hemoglobin Latest Ref Range: 11.7 - 15.5 gm/dL 12.6 Hematocrit Latest Ref Range: 35.7 - 45.8 % 37.5 MCV Latest Ref Range: 82.6 - 94.4 fL 96.6 (H) MCH Latest Ref Range: 27.1 - 32.0 pg 32.5 (H) MCHC Latest Ref Range: 31.7 - 35.0 gm/dL 33.6 RDWSD Latest Ref Range: 37.0 - 46.0 fL 46.5 (H) RDWCV Latest Ref Range: 11.5 - 14.1 % 13.2 Platelets Latest Ref Range: 145 - 357 x10(3)/mcL 280 MPV Latest Ref Range: 7.6 - 12.9 fL 9.7 nRBC % Auto Latest Units: % 0.0 nRBC Abs Auto Latest Ref Range: 0.000 - 0.000 x10(3)/mcL 0.000 Neutr Abs (ANC) Latest Ref Range: 1.70 - 6.10 x10(3)/mcL 2.50 Neutrophils % Latest Units: % 51.8 Immature Gran % Latest Units: % 0.40 Lymphocytes % Latest Units: % 32.7 Monocytes % Latest Units: % 11.6 Eosinophils % Latest Units: % 2.5 Basophils % Latest Units: % 1.0 Abbie Gran Abs Latest Ref Range: 0.00 - 0.04 x10(3)/mcL 0.02 Lymphocytes Abs Latest Ref Range: 0.9 - 3.2 x10(3)/mcL 1.6 Monocyte Abs Latest Ref Range: 0.3 - 0.9 x10(3)/mcL 0.6 Eosinophils Abs Latest Ref Range: 0.0 - 0.4 x10(3)/mcL 0.1 Basophils Abs Latest Ref Range: 0.0 - 0.1 x10(3)/mcL 0.0 Sed Rate Latest Ref Range: 0 - 20 mm/hr 9 Sodium Latest Ref Range: 135 - 145 mmol/L 139 Potassium Latest Ref Range: 3.5 - 5.0 mmol/L 3.9 Chloride Latest Ref Range: 98 - 107 mmol/L 102 CO2 Latest Ref Range: 22 - 31 mmol/L 26 Anion Gap Latest Ref Range: 5 - 15 mmol/L 11 BUN Latest Ref Range: 8 - 18 mg/dL 13 Creatinine Latest Ref Range: 0.70 - 1.20 mg/dL 0.72 eGFR Latest Ref Range: >=60 mL/min/1.73 m?? 94 eGFR Latest Ref Range: >=60 mL/min/1.73 m?? 108 Glucose Lvl Latest Ref Range: 65 - 199 mg/dL 88 Calcium Latest Ref Range: 8.5 - 10.5 mg/dL 9.2 Total Protein Latest Ref Range: 6.1 - 8.0 gm/dL 7.1 Albumin Latest Ref Range: 3.2 - 5.2 gm/dL 4.2 Total Bilirubin Latest Ref Range: 0.2 - 1.3 mg/dL 0.6 Alk Phos Latest Ref Range: 40 - 104 unit/L 61 AST Latest Ref Range: 0 - 30 unit/L 15 ALT Latest Ref Range: 0 - 30 unit/L 9 Ferritin Latest Ref Range: 30 - 400 ng/mL 77 Folate Lvl Latest Ref Range: 4.8 - 24.2 ng/mL 19.1 Iron Latest Ref Range: 30 - 150 mcg/dL 103 TIBC Latest Ref Range: 250 - 450 mcg/dL 250 Iron Saturation Latest Ref Range: 20 - 50 % 41 Vitamin B-12 Latest Ref Range: 232 - 1,245 pg/mL 454 GABRIELLE Latest Ref Range: Neg 1:80 Homogeneous DNA Ab (DS) Latest Ref Range: Neg Neg HESHAM Ab Unknown See below CRP Latest Ref Range: <=4.9 mg/L 1.5 TSH Latest Ref Range: 0.27 - 4.20 mcIU/mL 2.51 03/03/19 1340 [facility] Ab to Extractable Nuclear Ag Eval,S Test ?Result ?Flag ??Unit ??RefValue ?? SS-A/Ro Ab, IgG, S ?1.5 ?H ?U ? <1.0 (Negative) ? Interpretation: Positive (>=1.0) ?? SS-B/La Ab, IgG, S ?0.6 ? U ? <1.0 (Negative) ?? Sm Ab, IgG, S ? <0.2 ?U ? <1.0 (Negative) ?? COLOR SPECIALIST Ab, IgG, S ?0.5 ? U ? <1.0 (Negative) ?? Scl 70 Ab, IgG, S ? <0.2 ?U ? <1.0 (Negative) ?? Zoey 1 Ab, IgG, S ? <0.2 ?U ? <1.0 (Negative) ? Test Performed by: ? [facility] ? [address] [place] [address] EXAMINATION: XR SACRUM AND COCCYX (GENERIC), XR LUMBAR SPINE 2 OR 3 VIEWS (GENERIC) CLINICAL HISTORY: Coccygeal pain. ? fracture, etc. TECHNIQUE: Frontal and lateral radiographs of the sacrum and coccyx. And frontal and lateral radiographs of the lumbar spine. COMPARISON: None ?? IMPRESSION FINDINGS/IMPRESSION: There is [...] amount of fecal material within the rectosigmoid. documented in this encounter Plan of Treatment Upcoming Encounters Date Type Department Care Team (Late st Contact Info) Description 07/21/2024 1:00 PM EDT [place] [address] Isaiah Mcpherson MD [facility] [place] [address] [place] [address] documented as of this encounter Procedures Procedure Name Priority Date/Time Associated Diagnosis Comments CRP, ACUTE INFLAMMATION Routine 03/03/2019 1:40 PM EDT Rheumatoid arthritis involving multiple sites with positive rheumatoid factor EXTRACTABLE NUCLEAR ANTIGEN (HESHAM) AB Routine 03/03/2019 1:40 PM EDT High risk medication use Chronic fatigue DNA ANTIBODY (DOUBLE-STRANDED) Routine 03/03/2019 1:40 PM EDT High risk medication use Chronic fatigue HEMOGRAM Routine 03/03/2019 1:40 PM EDT Rheumatoid arthritis involving multiple sites with positive rheumatoid factor DIFFERENTIAL, AUTOMATED Routine 03/03/2019 1:40 PM EDT Rheumatoid arthritis involving multiple sites with positive rheumatoid factor IRON AND TIBC Routine 03/03/2019 1:40 PM EDT High risk medication use SEDIMENTATION RATE Routine 03/03/2019 1: 40 PM EDT Rheumatoid arthritis involving multiple sites with positive rheumatoid factor CBC (WITH DIFF) Routine 03/03/2019 1:40 PM EDT Rheumatoid arthritis involving multiple sites with positive rheumatoid factor GABRIELLE ANTIBODY SCREEN Routine 03/03/2019 1 :40 PM EDT High risk medication use Chronic fatigue TSH Routine 03/03/2019 1:40 PM EDT Chronic fatigue FOLATE, SERUM Routine 03/03/2019 1:40 PM EDT High risk medication use Chronic fatigue FERRITIN Routine 03/03/2019 1:40 PM EDT High risk medication use VITAMIN B12 Routine 03/03/2019 1:40 PM EDT High risk medication use Chronic fatigue COMPREHENSIVE METABOLIC PANEL Routine 03/03/2019 1:40 PM EDT Rheumatoid arthritis involving multiple sites with positive rheumatoid factor documented in this encounter Results * Differential, Automated (03/03/2019 1:40 PM EDT) Pathologist [facility] Neutrophil % 51.8 % [facility] Neutrophil Absolute 2.50 1.70 - 6.10 x10(3)/[facility] Lymph % 32.7 % [facility] Lymphocytes Abs 1.6 0.9 - 3.2 x10(3)/[facility] Monocyte % 11.6 % [facility] Monocyte Abs 0.6 0.3 - 0.9 x10(3)/[facility] Eos % 2.5 % [facility] Eosinophils Abs 0.1 0.0 - 0.4 x10(3)/[facility] Basophil % 1.0 % [facility] Baso Absolute 0.0 0.0 - 0.1 x10(3)/[facility] Immature Gran % 0.40 % [facility] Comment: Immature granulocytes(IG's)percentage and absolute count will include metamyelocytes, myelocytes, and promyelocytes. Blood smears from CBCs yielding IG's will be scanned manually for concordance. If this scan disagrees with the automated IG or if promyelocytes are noted, a manual differential will be performed. Immature Gran Absolute 0.02 0.00 - 0.04 x10(3)/[facility] Blood specimen (specimen) 03/03/2019 1:40 PM EDT 03/03/2019 1:48 PM EDT Narrative Resulting Agency Comment Spec In Lab Isaiah Mcpherson MD HEMATOLOGY ORDERA BLES [facility] [place] [address] * (ABNORMAL) Hemogram (03/03/2019 1:40 PM EDT) [facility] White Blood Cell 4.8 4.0 - 9.5 x10(3)/ L [facility] Red Blood Cell 3.88(L) 4.00 - 5.21 x10(6)/mc L [facility] Hemoglobin 12.6 11.7 - 15.5 gm/dL [facility] Hematocrit 37.5 35.7 - 45.8 % [facility] Mean Cell Volume 96.6(H) 82.6 - 94.4 fL [facility] Mean Cell Hemoglobin 32.5(H) 27.1 - 32.0 pg [facility] Mean Cell Hemoglobin Concentration 33.6 31.7 - 35.0 gm/dL [facility] Platelet 280 145 - 357 x10(3)/mc L [facility] RDW Standard Deviation 46.5(H) 37.0 - 46.0 fL [facility] RDW coefficient of variation 13.2 11.5 - 14.1 % [facility] Mean Platelet Volume 9.7 7.6 - 12.9 fL [facility] NRBC% auto 0.0 % [facility] NRBC Absolute 0.000 0.000 - 0.000 x10(3)/mc L [facility] Blood specimen (specimen) 03/03/2019 1:40 PM EDT 03/03/2019 1:48 PM EDT Narrative Resulting Agency Comment Spec In Lab Isaiah Mcpherson MD HEMATOLOGY ORDERA BLES Performing Organization Address City/[facility]/ZIP Co de Phone Number [facility] [place] [address] * Folate, serum (03/03/2019 1:40 PM EDT) Folate 19.1 4.8 - 24.2 ng/mL [facility] Blood specimen (specimen) 03/03/2019 1:40 PM EDT 03/03/2019 1:48 PM EDT Narrative Resulting Agency Comment Spec In Lab Isaiah Mcpherson MD CHEMISTRY ORDERAB LES [facility] [place] [address] * Vitamin B12 (03/03/2019 1:40 PM EDT) Vitamin B12 454 232 - 1,245 pg/mL [facility] Blood specimen (specimen) 03/03/2019 1:40 PM EDT 03/03/2019 1:48 PM EDT Narrative Resulting Agency Comment Spec In Lab Isaiah Mcpherson MD CHEMISTRY ORDERAB LES Performing Organization Address City/[facility]/ZIP Co de Phone Number [facility] [place] [address] * CRP, acute inflammation (03/03/2019 1:40 PM EDT) C-Reactive Protein 1.5 <=4.9 mg/L [facility] Blood specimen (specimen) 03/03/2019 1:40 PM EDT 03/03/2019 1:48 PM EDT Narrative Resulting Agency Comment Spec In Lab Isaiah Mcpherson MD CHEMISTRY ORDERAB LES Performing Organization Address [facility] Co de Phone Number [facility] [place] [address] * Sedimentation rate (03/03/2019 1:40 PM EDT) Sedimentation Rate Automated 9 0 - 20 mm/hr [facility] Blood specimen (specimen) 03/03/2019 1:40 PM EDT 03/03/2019 1:48 PM EDT Narrative Resulting Agency Comment Spec In Lab Isaiah Mcpherson MD HEMATOLOGY ORDERA BLES Performing Organization Address City/[facility] Co de Phone Number [facility] [place] [address] * TSH (03/03/2019 1:40 PM EDT) Thyroid Stimulating Hormone 2.51 0.27 - 4.20 mcIU/mL [facility] Blood specimen (specimen) 03/03/2019 1:40 PM EDT 03/03/2019 1:48 PM EDT Narrative Resulting Agency Comment Spec In Lab Isaiah Mcpherson MD CHEMISTRY ORDERAB LES Performing Organization Address [facility] Co de Phone Number [facility] [place] [address] * DNA Antibody (Double-Stranded) (03/03/2019 1:40 PM EDT) DNA Ab (DS) Neg Neg [facility] Blood specimen (specimen) 03/03/2019 1:40 PM EDT 03/04/2019 6:59 AM EDT Narrative Resulting Agency Comment Spec In Lab Isaiah Mcpherson MD LAB SEND OUT ORDE RABLES Performing Organization Address [facility] de Phone Number [facility] [place] [address] * (ABNORMAL) Extractable Nuclear Antigen (HESHAM) Ab (03/03/2019 1:40 PM EDT) HESHAM Ab Test ?Result ?Flag ??Unit ??RefValue Ab to Extractable Nuclear Ag Eval,S ??SS-A/Ro Ab, IgG, S ?1.5 ?H ?U ? <1.0 (Negative) ?Interpretation : Positive (>=1.0) ??SS-B/La Ab, IgG, S ?0.6 ? U ? <1.0 (Negative) ??Sm Ab, IgG, S ? <0.2 ?U ? <1.0 (Negative) ??COLOR SPECIALIST Ab, IgG, S ?0.5 ? U ? <1.0 (Negative) ??Scl 70 Ab, IgG, S ? <0.2 ?U ? <1.0 (Negative) ??Zoey 1 Ab, IgG, S ? <0.2 ?U ? <1.0 (Negative) ?Test Performed by: ?[facility] ?[address] [place] [address] (A) [facility] Blood specimen (specimen) 03/03/2019 1:40 PM EDT 03/03/2019 3:44 PM EDT Narrative Resulting Agency Comment Spec In Lab Isaiah Mcpherson MD LAB SEND OUT VIKY APONTE [facility] [place] [address] * (ABNORMAL) GABRIELLE (LEB/CGP) (03/03/2019 1:40 PM EDT) GABRIELLE Pos at 1:80(A) Neg [facility] Comment: Titer seen with Homogeneous/Diffuse pattern. ??Is suggestive of autoantibodies to nDNA, histones, or DNA-associated proteins. Blood specimen (specimen) 03/03/2019 1:40 PM EDT 03/04/2019 6:59 AM EDT Narrative Resulting Agency Comment Spec In Lab Isaiah Mcpherson MD LAB SEND OUT VIKY APONTE Performing Organization Address [facility]/ZIP Co de Phone Number [facility] [place] [address] * Ferritin (03/03/2019 1:40 PM EDT) Ferritin 77 30 - 400 ng/mL [facility] Comment: Pediatric reference ranges not verified [place] [facility] interpret with caution. Reference ranges for females greater than 50 years of age approach values for men, i.e., 30-400 ng/mL. Blood specimen (specimen) 03/03/2019 1:40 PM EDT 03/03/2019 1:48 PM EDT Narrative Resulting Agency Comment Spec In Lab Isaiah Mcpherson MD CHEMISTRY ORDERAB LES Performing Organization Address [facility] Co de Phone Number [facility] [place] [address] * Iron and TIBC (03/03/2019 1:40 PM EDT) Iron 103 30 - 150 mcg/dL [facility] TIBC 250 250 - 450 mcg/dL [facility] Iron Saturation 41 20 - 50 % [facility] Blood specimen (specimen) 03/03/2019 1:40 PM EDT 03/03/2019 1:48 PM EDT Narrative Resulting Agency Comment Spec In Lab Isaiah Mcpherson MD CHEMISTRY ORDERAB LES Performing Organization Address [facility] Co de Phone Number [facility] [place] [address] * Comprehensive metabolic panel (non-fasting) (03/03/2019 1:40 PM EDT) Glucose 88 65 - 199 mg/dL [facility] Comment:Diabetes: >=200 mg/d L plus symptoms Blood Urea Nitrogen 13 8 - 18 mg/dL [facility] Creatinine 0.72 0.70 - 1.20 mg/dL [facility] [facility] Sodium 139 135 - 145 mmol/L [facility] Potassium 3.9 3.5 - 5.0 mmol/L [facility] Comment: Please note: ??Patients with WBC >100,000 may have falsely elevated Potassium levels. ??For accurate Potassium quantification in these patients send serum separator tube (gold top) for subsequent determinations. ??Contact the Clinical Chemistry Laboratory if there are any questions. Chloride 102 98 - 107 mmol/L [facility] Carbon Dioxide 26 22 - 31 mmol/L [facility] Anion Gap 11 5 - 15 mmol/L [facility] Calcium 9.2 8.5 - 10.5 mg/dL [facility] Protein, Total 7.1 6.1 - 8.0 gm/dL [facility] Albumin 4.2 3.2 - 5.2 gm/dL [facility] Aspartate Aminotransferase 15 0 - 30 unit/L [facility] Alanine Aminotransferase 9 0 - 30 unit/L [facility] Alkaline Phosphatase 61 40 - 104 unit/L [facility] Bilirubin, Total 0.6 0.2 - 1.3 mg/dL [facility] Est Glomerular Filtration Rate 94 >=60 mL/min/1. 73 m?? [facility] Comment: The eGFR was calculated using the CKD-EPI equation. As with all creatinine based estimates of kidney function, eGFR values calculated with the CKD-EPI equation are not accurate in patients with acute kidney failure, extremes of body mass or the acutely ill. http://Better Finance/DHMCnkf eGFR 108 >=60 mL/min/1. 73 m?? [facility] Comment: The eGFR was calculated using the CKD-EPI equation. As with all creatinine based estimates of kidney function, eGFR values calculated with the CKD-EPI equation are not accurate in patients with acute kidney failure, extremes of body mass or the acutely ill. http://Better Finance/DHMCnkf Blood specimen (specimen) 03/03/2019 1:40 PM EDT 03/03/2019 1:48 PM EDT Narrative Resulting Agency Comment Spec In Lab Isaiah Mcpherson MD CHEMISTRY ORDERAB LES [facility] [place] [address] * XR Lumbar Spine 2 Or 3 [...] below. Isaiah Mcpherson MD IMG DX ORDERABLES * XR Sacrum & Coccyx (Generic) (03/03/2019 [...] involving multiple sites with positive rheumatoid factor Coccyx pain Other disorder of coccyx Iliac crest bone pain Disorder of bone and cartilage, unspecified Chronic fatigue Other malaise and fatigue Coccyx pain Other disorder of coccyx Iliac crest bone pain Disorder of bone and cartilage, unspecified documented in this encounter Care Teams Tobacco Sampler Relationship Specialty Start Date End Date Ping Garcia APRN [address] [place] [address] PCP - General Family Medicine 01/04/17 06/02/19 documented as of this encounter
--- OUTSIDE RECORDS SUMMARY | 2024-06-19 00:22 | XMS_ITS | Encounter Summary ---
Author Organization [facility] [place] [address] Care Team Providers Care Hvac Instructor Name Role Phone Jennifer Anaya APRN Primary Care Provider [phone]- [phone] Reason for Visit * Reason Onset Date Comments Medication Refill 07/16/2016 Encounter Details Date Type Department Care Team (Late st Contact Info) Description 07/16/2016 Refill [place] [address] Esther Wetzel LPN Social History Tobacco Use [...] 1:00 PM EDT Office Visit [place] [address] Isaiah Mcpherson MD [facility] [place] [address] documented as of this encounter Visit Diagnoses Not on filedocumented in this encounter Care Teams Hvac Instructor Relationship Specialty Start Date End Date Jennifer [place] [address] [place] [address] PCP - General 08/17/11 01/03/17 documented as of this encounter
--- OUTSIDE RECORDS SUMMARY | 2024-06-19 00:22 | XMS_ITS | Encounter Summary ---
Author Organization [facility] [place] [address] Care Team Providers Care Gluing Machine Feeder Name Role Phone Héctor Jennifer Coffey APRN Primary Care Provider [phone]- [phone] Reason for Visit * Reason Comments Follow-up Encounter Details Date Type Department Care Team (Late st Contact Info) Description 11/16/2014 9:15 AM EST Follow-[place] [address] Isaiah Mcpherson MD [facility] [place] [address] Rheumatoid arthritis; Fibromyalgia; Anxiety; Iron deficiency anemia due to chronic blood loss; Perimenopausal; Myalgia and myositis; High risk medication use; Sleep disturbance; RLS (restless legs syndrome) Discharge Disposition: Home Social History Tobacco Use Types Packs/Day Years Used Date Smoking Tobacco: Former Sex and Gender Information Value Date Recorded Sex Assigned at Not on file Gender Identity Not on file Sexual Orientation Not on file documented as of this encounter Last Filed Vital Signs Vital Sign Reading Time Taken Comments Blood Pressure 120/72 11/16/2014 9:20 AM EST Pulse 58 11/16/2014 9:20 AM EST Temperature - - Respiratory Rate 16 11/16/2014 9:20 AM EST Oxygen Saturation - - Inhaled Oxygen Concentration - - Weight 72.1 kg (159 lb) 11/16/2014 9:20 AM EST Height 157.5 cm (5' 2) 11/16/2014 9:20 AM EST Body Mass Index 29.08 11/16/2014 9:20 AM EST documented in this encounter Patient Instructions * Patient Instructions* Isaiah Mcpherson MD - 11/16/2014 10:04 AM EST Get labs today. Call for results. Take Tylenol 2 tablets every night. If not sleeping better, try the Requip again at the higher dose. Otherwise continue current regimen. Follow up in 6 months. It may be a good idea to check in with your PCP. documented in this encounter Progress Notes * Isaiah Mcpherson MD - 11/20/2014 11:20 AM EST Rheumatology Clinic: Dr. Mcpherson 11/16/2014 [id number] Crystal Edmonds is seen in follow-up of her rheumatoid arthritis. Please see previous notes for details. In addition to being rheumatoid factor and CCP positive, she's also been GABRIELLE and Ro positive, but her disease has predominantly behaved like rheumatoid. She has done very well with Humira and methotrexate. However, she does have a lot of aches and pains and is always worried that this represents her arthritis breaking through. She admits that she has quite a bit of anxiety. Lately she's been having achiness from the hips down. She has trouble characterizing this further, but it doesn't sound joint-based, but more muscular. Having said that, it doesn't sound like spinal stenosis or neurogenic claudication. 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 She also complains about an ongoing problem with fatigue. The patient continues to have problems with sleep at night. She has jumpy legs. We tried her on Requip on her last visit here. We started sergei a 0.25-0.5 mg at night, but she still didn't find it helpful and stopped, although our plan was to continue increasing. The patient did note that she has found if she takes Tylenol at night, that helps with her achiness, which in turn helps her sleep. This seemed like a such a simple solution, Iasked her why she didn't do this more regularly. She says she doesn't like taking medications. She is already taking her sertraline at night because that makes her a little bit drowsy. So I suggested that the first thing to do would be to take Tylenol regularly. I reassured her that the dose she was taking, a total of 650 mg at night, was very safe. We also discussed the fact that at one point she was on clonazepam for her anxiety and in particular to help her sleep, but she didn't find it all that helpful. I told her that before we reconsider a drug like that, we should certainly try Tylenol. We could also try Requip again on a higher dose if Tylenol doesn't work. She also complained of some anterior chest pain. This is not exertional. It can happen randomly andlasts for a few days. It's fairly intense when it does happen. She gestures to the area of the costochondral junctions. Patient Active Problem List Diagnosis Code ??? Rheumatoid arthritis 714.0 ??? Fibromyalgia 729.1 ??? Depression 311 ??? Iron deficiency anemia due to chronic blood loss 280.0 ??? Sleep disturbance 780.50 ??? Uveitis 364.3 ??? Anxiety 300.00 ??? Enthesopathy of hip region 726.5 ??? Perimenopausal 627.2 ??? Myalgia and myositis 729.1 Medications 11/16/14 0917 Medication Sig Taking? sertraline (ZOLOFT) 100 mg Tablet Take 1 tablet by mouth daily. Yes folic acid (FOLVITE) 1 mg Tablet TAKE ONE TABLET BY MOUTH EVERY DAY Yes methotrexate 2.5 mg tablet Take 8 tablets by mouth once a week. Can take without regard to food. Call clinic before/prior to starting medication/script. Yes Adalimumab (HUMIRA PEN) 40 mg/0.8 mL PnKt Inject 0.8 mLs subcutaneously every 14 days. Yes rOPINIRole (REQUIP) 1 mg Tablet Take 1-2 tablets by mouth nightly. Physical Exam: She looks well and healthy Blood pressure 120/72, pulse 58, resp. rate 16, height 157.5 cm (5' 2), weight 72.122 kg (159 lb). Skin: Clear. HEENT: Unremarkable. Lungs: Clear. Heart: Regular rhythm and rate without murmur, gallop, or rub. Abdomen: Benign. No masses, tenderness, or organomegaly. Extremities: No edema. Good distal pulses. Musculoskeletal: She has no synovitis in her hands. Her wrists, elbows, and shoulders move well. She is tender at the costochondral junctions, left greater than right. This does reproduce the pain she was talking about. Her hips move well. Her knees have minimal crepitus on range of motion. There is no warmth or effusion in either knee. Her ankles are fine. Distal feet show mild DJD without synovitis. Neuro: Grossly intact. Assessment: Once again I tried to reassure her that her rheumatoid arthritis is doing very well. She is pleased to hear that. We discussed how it is difficult for somebody with underlying rheumatoid arthritis to be able to distinguish that from the usual aches and pains one experiences as they age.She's still getting the hang of that. After I explained that to her, she did note that her sister, tristen serra does not have rheumatoid arthritis, has a lot of similar aches and pains in her legs towards theend of a long work day. 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 In addition to her more generalaches and pains and the rheumatoid arthritis, she's having episodes of costochondritis. I explainedthat to her. I think she was reassured that this was not her heart. We will check lab work today. She'll try the Tylenol at night. I gave her a prescription for a higher dose of Requip, 1-2 mg q.h.s. p.r.n., should the Tylenol not work. We'll see her back in 6 months, but I asked her to stay in touch. We gave the patient the following specific instructions: Patient Instructions Get labs today. Call for results. Take Tylenol 2 tablets every night. If not sleeping better, try the Requip again at the higher dose. Otherwise continue current regimen. Follow up in 6 months. It may be a good idea to check in with your PCP. Over 30 minutes of the 40 minute follow-up were spent discussing these problems and their treatmentoptions in umre-iy-tycy counseling. Orders Placed This Encounter Procedures ??? CBC (with Diff) ??? Comprehensive metabolic panel (non-fasting) ??? High Sensitivity CRP ??? TSH ??? Iron and TIBC ??? Ferritin ??? CK ??? Hemogram ??? Differential, Automated Visit Diagnoses: 1. Rheumatoid arthritis CBC (with Diff) Comprehensive metabolic panel (non-fasting) High Sensitivity CRP CBC (with Diff) Comprehensive metabolic panel (non-fasting) High Sensitivity CRP 2. Fibromyalgia 3. Anxiety 4. Iron deficiency anemia due to chronic blood loss Iron and TIBC Ferritin Iron and TIBC Ferritin 5. Perimenopausal 6. Myalgia and myositis TSH CK TSH CK 7. High risk medication use CBC (with Diff) Comprehensive metabolic panel (non-fasting) CBC (with Diff) Comprehensive metabolic panel (non-fasting) Hemogram Differential, Automated 8. Sleep disturbance rOPINIRole (REQUIP) 1 mg Tablet 9. RLS (restless legs syndrome) rOPINIRole (REQUIP) 1 mg Tablet Results for CRYSTAL EDMONDS ( ) Ref. Range 11/16/2014 10:26 WBC Latest Range: 4.0-10.0 x10(3)/mcL 6.4 RBC Latest Range: 3.93-5.22 x10(6)/mcL 4.04 Hemoglobin Latest Range: 11.2-15.7 gm/dL 13.3 Hematocrit Latest Range: 34.0-45.0 % 38.8 MCV Latest Range: 79.0-94.0 fL 96.0 (H) MCH Latest Range: 26.6-32.2 pg 32.9 (H) MCHC Latest Range: 32.0-36.5 gm/dL 34.3 RDWSD Latest Range: 35.0-46.0 fL 48.2 (H) RDWCV Latest Range: 10.9-14.4 % 13.8 Platelets Latest Range: 145-370 x10(3)/mcL 262 MPV Latest Range: 9.0-12.0 fL 10.0 Neutr Abs (ANC) Latest Range: 1.50-6.30 x10(3)/mcL 3.84 Neutrophils % No range found 60.0 Immature Gran % No range found 0.30 Lymphocytes % No range found 24.1 Monocytes % No range found 13.4 Eosinophils % No range found 1.9 Basophils % No range found 0.3 Abbie Gran Abs Latest Range: 0.00-0.05 x10(3)/mcL 0.02 Lymphocytes Abs Latest Range: 1.0-3.6 x10(3)/mcL 1.5 Monocyte Abs Latest Range: 0.2-1.0 x10(3)/mcL 0.9 Eosinophils Abs Latest Range: 0.0-0.5 x10(3)/mcL 0.1 Basophils Abs Latest Range: 0.0-0.2 x10(3)/mcL 0.0 Sodium Latest Range: 135-145 mmol/L 143 Potassium Latest Range: 3.5-5.0 mmol/L 4.3 Chloride Latest Range: 98-107 mmol/L 103 CO2 Latest Range: 22-31 mmol/L 28 Anion Gap Latest Range: 5-15 mmol/L 12 BUN Latest Range: 8-18 mg/dL 11 Creatinine Latest Range: 0.70-1.20 mg/dL 0.75 Estimated GFR Latest Range: >=60 >60 Glucose Lvl Latest Range: 60-199 mg/dL 83 Calcium Latest Range: 8.5-10.5 mg/dL 9.6 Total Protein Latest Range: 6.4-8.3 gm/dL 7.2 Albumin Latest Range: 3.2-5.2 gm/dL 4.4 Total Bilirubin Latest Range: 0.2-1.3 mg/dL 0.3 Bili, Direct Latest Range: 0.0-0.3 mg/dL 0.1 Alk Phos Latest Range: 40-104 unit/L 49 AST Latest Range: 0-30 unit/L 17 ALT Latest Range: 0-30 unit/L 13 Ferritin Latest Range: 30-400 ng/mL 31 Iron Latest Range: 30-150 mcg/dL 78 TIBC Latest Range: 250-450 mcg/dL 292 Iron Saturation Latest Range: 20-50 % 27 CK, Total Latest Range: 0-160 unit/L 63 CRP High Sens No range found 0.6 TSH Latest Range: 0.27-4.20 mcIU/mL 3.68 documented in this encounter Plan of Treatment Upcoming Encounters Date Type Department Care Team (Late st Contact Info) Description 07/21/2024 1:00 PM EDT Office [place] [id number] Isaiah Mcpherson MD [facility] [place] [address] documented as of this encounter Procedures Procedure Name Priority Date/Time Associated Diagnosis Comments HEMOGRAM Routine 11/16/2014 10:26 AM EST Rheumatoid arthritis(714.0) High risk medication use DIFFERENTIAL, AUTOMATED Routine 11/16/2014 10:26 AM EST Rheumatoid arthritis(714.0) High risk medication use IRON AND TIBC Routine 11/16/2014 10:26 AM EST Iron deficiency anemia due to chronic blood loss CBC (WITH DIFF) Routine 11/16/2014 10:26 AM EST Rheumatoid arthritis High risk medication use CRP, CARDIAC RISK (HS CRP) Routine 11/16/2014 10:26 AM EST Rheumatoid arthritis TSH Routine 11/16/2014 10:26 AM EST Myalgia and myositis FERRITIN Routine 11/16/2014 10:26 AM EST Iron deficiency anemia due to chronic blood loss CK Routine 11/16/2014 10:26 AM EST Myalgia and myositis COMPREHENSIVE METABOLIC PANEL Routine 11/16/2014 10:26 AM EST Rheumatoid arthritis High risk medication use documented in this encounter Results * Differential, Automated (11/16/2014 10:26 AM EST) Neutrophil % 60.0 % [facility] MILLENNIUM Neutrophil Absolute 3.84 1.50 - 6.30 x10(3)/mcL CERNER MILLENNIUM Lymph % 24.1 % CERNER MILLENNIUM Lymphocytes Abs 1.5 1.0 - 3.6 x10(3)/mcL [facility]ERN[facility] MILLENNIUM Monocyte % 13.4 % CERNER MILLENNIUM Monocyte Abs 0.9 0.2 - 1.0 x10(3)/mcL CERN[facility] MILLENNIUM Eos % 1.9 % CERNER MILLENNIUM Eosinophils Abs 0.1 0.0 - 0.5 x10(3)/mcL [facility]ERN[facility] MILLENNIUM Basophil % 0.3 % CERNER MILLENNIUM Baso Absolute 0.0 0.0 - 0.2 x10(3)/mcL [facility]ERN[facility] MILLENNIUM Immature Gran % 0.30 % [facility] MILLENNIUM Comment: Immature granulocytes(IG's)percentage and absolute count will include metamyelocytes, myelocytes, and promyelocytes. Blood smears from CBCs yielding IG's will be scanned manually for concordance. If this scan disagrees with the automated IG or if promyelocytes are noted, a manual differential will be performed. Immature Gran Absolute 0.02 0.00 - 0.05 x10(3)/mcL [facility] MILLENNIUM Blood specimen (specimen) 11/16/2014 10:26 AM EST 11/16/2014 11:00 AM EST Narrative Resulting Agency Comment Spec In Lab Isaiah Mcpherson MD HEMATOLOGY ORDERA BLES C[facility] MILLENNIUM * (ABNORMAL) Hemogram (11/16/2014 10:26 AM EST) White Blood Cell 6.4 4.0 - 10.0 x10(3)/mc L [facility]ERN[facility] MILLENNIUM Red Blood Cell 4.04 3.93 - 5.22 x10(6)/mc L [facility] MILLENNIUM Hemoglobin 13.3 11.2 - 15.7 gm/dL [facility] MILLENNIUM Hematocrit 38.8 34.0 - 45.0 % CERNER MILLENNIUM Mean Cell Volume 96.0(H) 79.0 - 94.0 fL CERN[facility] MILLENNIUM Mean Cell Hemoglobin 32.9(H) 26.6 - 32.2 pg CERNER MILLENNIUM Mean Cell Hemoglobin Concentration 34.3 32.0 - 36.5 gm/dL CERN[facility] MILLENNIUM Platelet 262 145 - 370 x10(3)/mc L CERN[facility] MILLENNIUM RDW Standard Deviation 48.2(H) 35.0 - 46.0 fL CERN[facility] MILLENNIUM RDW coefficient of variation 13.8 10.9 - 14.4 % CERNER MILLENNIUM Mean Platelet Volume 10.0 9.0 - 12.0 fL [facility] MILLENNIUM Blood specimen (specimen) 11/16/2014 10:26 AM EST 11/16/2014 11:00 AM EST Narrative Resulting Agency Comment Spec In Lab Isaiah Mcpherson MD HEMATOLOGY ORDERA BLES [facility] * CK (11/16/2014 10:26 AM EST) Creatine Kinase 63 0 - 160 unit/L [facility] Blood specimen (specimen) 11/16/2014 10:26 AM EST 11/16/2014 11:00 AM EST Narrative Resulting Agency Comment Spec In Lab Isaiah Mcpherson MD CHEMISTRY ORDERAB LES Performing Organization Address [facility] Co de Phone Number [facility] * Ferritin (11/16/2014 10:26 AM EST) Ferritin 31 30 - 400 ng/mL [facility] Comment: Pediatric reference ranges not verified at [facility], interpret with caution. Reference ranges for females greater than 50 years of age approach values for men, i.e., 30-400 ng/mL. Blood specimen (specimen) 11/16/2014 10:26 AM EST 11/16/2014 11:00 AM EST Narrative Resulting Agency Comment Spec In Lab Isaiah Mcpherson MD CHEMISTRY ORDERAB LES Performing Organization Address [facility] de Phone Number [facility] * Iron and TIBC (11/16/2014 10:26 AM EST) Iron 78 30 - 150 mcg/dL [facility] MILLENNIUM TIBC 292 250 - 450 mcg/dL [facility] Iron Saturation 27 20 - 50 % [facility] Blood specimen (specimen) 11/16/2014 10:26 AM EST 11/16/2014 11:00 AM EST Narrative Resulting Agency Comment Spec In Lab Isaiah Mcpherson MD CHEMISTRY ORDERAB LES Performing Organization Address City/[facility]/ZIP Co de Phone Number [facility] * TSH (11/16/2014 10:26 AM EST) Thyroid Stimulating Hormone 3.68 0.27 - 4.20 mcIU/mL [facility] Blood specimen (specimen) 11/16/2014 10:26 AM EST 11/16/2014 11:00 AM EST Narrative Resulting Agency Comment Spec In Lab Isaiah Mcpherson MD CHEMISTRY ORDERAB LES Performing Organization Address [facility] de Phone Number [facility] * High Sensitivity CRP (11/16/2014 10:26 AM EST) C-Reactive Protein High Sensitivity 0.6 mg/L [facility] Comment: Interpretations: 1) For accurate cardiac risk [...] and Cardiovascular Disease. ??Circulation 2003; 107:499-511 2. Srinivasan PM. ??Clinical applications of C-reactive protein for cardiovascular disease detection and prevention. ??Circulation 2003; 107:363-369 Blood specimen (specimen) 11/16/2014 10:26 AM EST 11/16/2014 11:00 AM EST Narrative Resulting Agency Comment Spec In Lab Isaiah Mcpherson MD CHEMISTRY ORDERAB LES Performing Organization Address [facility] de Phone Number [facility] * Comprehensive metabolic panel (non-fasting) (11/16/2014 10:26 AM EST) Glucose 83 60 - 199 mg/dL [facility] Comment:Diabetes: >=200 mg/d L plus symptoms Blood Urea Nitrogen 11 8 - 18 mg/dL [facility] MILLENNIUM Creatinine 0.75 0.70 - 1.20 mg/dL [facility] MILLENNIUM Comment: Please note that the pediatric reference intervals supplied above were not validated at [facility]. Results from pediatric patients should be interpreted in conjunction to the patient's age, height and muscle mass. Sodium 143 135 - 145 mmol/L [facility] MILLENNI[facility] Potassium 4.3 3.5 - 5.0 mmol/L [facility] Comment: Please note: ??Patients with WBC >100,000 may have falsely elevated Potassium levels. ??For accurate Potassium quantification in these patients send serum separator tube (gold top) for subsequent determinations. ??Contact the Clinical Chemistry Laboratory if there are any questions. Chloride 103 98 - 107 mmol/L [facility]ILL[facility] Carbon Dioxide 28 22 - 31 mmol/L [facility] MILLENNI[facility] Anion Gap 12 5 - 15 mmol/L [facility] Calcium 9.6 8.5 - 10.5 mg/dL [facility]ILL[facility] Protein, Total 7.2 6.4 - 8.3 gm/dL [facility] MILLENNIUM Albumin 4.4 3.2 - 5.2 gm/dL [facility]ILL[facility] Aspartate Aminotransferase 17 0 - 30 unit/L [facility] Alanine Aminotransferase 13 0 - 30 unit/L [facility]ILL[facility] Alkaline Phosphatase 49 40 - 104 unit/L [facility] MILLENNI[facility] Bilirubin, Total 0.3 0.2 - 1.3 mg/dL [facility] MILLENNIUM Bilirubin, Direct 0.1 0.0 - 0.3 mg/dL [facility] MILLENNI[facility] Est Glomerular Filtration Rate >60 >=60 [facility] MILLENNI[facility] Comment: This estimated GFR (eGFR) value was [...] the following links into your internet browser. [email or web address] [email or web address] Blood specimen (specimen) 11/16/2014 10:26 AM EST 11/16/2014 11:00 AM EST Narrative Resulting Agency Comment Spec In Lab Isaiah Mcpherson MD CHEMISTRY ORDERAB LES MARBELLA STRONG documented in this encounter Visit Diagnoses Diagnosis Rheumatoid arthritis Fibromyalgia Mylagia and myositis, unspecified Anxiety Anxiety state, unspecified Iron deficiency anemia due to chronic blood loss Iron deficiency anemia secondary to blood loss (chronic) Perimenopausal Symptomatic menopausal or female climacteric states Myalgia and myositis Mylagia and myositis, unspecified High risk medication use Encounter for long-term (current) use of other medications Sleep disturbance Sleep disturbance, unspecified RLS (restless legs syndrome) Restless legs syndrome (RLS) documented in this encounter Care Teams Gluing Machine Feeder Relationship Specialty Start Date End Date Jennifer Anaya APRN [facility] [place] [address] PCP - General 08/17/11 01/03/17 documented as of this encounter
--- OUTSIDE RECORDS SUMMARY | 2024-06-19 00:22 | XMS_ITS | Encounter Summary ---
Author Organization [facility] [place] [address] Care Team Providers Care Computer Designer Name Role Phone Héctor Jennifer Coffey APRN Primary Care Provider [phone]- [phone] Reason for Visit * Reason Comments Myalgia/myositis Encounter Details Date Type Department Care Team (Late st Contact Info) Description 07/24/2013 10:45 AM EDT [place] [id number] Isaiah Mcpherson MD [facility] [place] [address] [place] [address] Rheumatoid arthritis; Iron deficiency anemia due to chronic blood loss; Uveitis; High risk medication use Discharge Disposition: Home Social History Tobacco Use Types Packs/Day Years Used Date Smoking Tobacco: Former Sex and Gender Information Value Date Recorded Sex Assigned at Not on file Gender Identity Not on file Sexual Orientation Not on file documented as of this encounter Last Filed Vital Signs Vital Sign Reading Time Taken Comments Blood Pressure 119/70 07/24/2013 11:07 AM EDT Pulse 54 07/24/2013 11:07 AM EDT Temperature 36.6 ??C (97.9 ??F) 07/24/2013 11:07 AM E DT Respiratory Rate - - Oxygen Saturation 98% 07/24/2013 11:07 AM EDT Inhaled Oxygen Concentration - - Weight 70.3 kg (155 lb) 07/24/2013 11:07 AM EDT Height 157.5 cm (5' 2) 07/24/2013 11:07 AM EDT Body Mass Index 28.35 07/24/2013 11:07 AM EDT documented in this encounter Patient Instructions * Patient Instructions* Ara Cornelius, [employer] - 07/24/2013 11:06 AM EDT Get labs today. Increase methotrexate to 8 tabs = 20 mg ONCE A WEEK. Increase prednisone to 30 mg (3 tabs) twice a day. Take Christian Coffey. See eye doctor next week. Let me know what she thinks. Follow up in 2 months. Stay in touch each week. Welcome to [employer], your secure online access to your electronic medical record at [facility]. Using [employer] you will be able to send messages to your providers, view your test results, renew prescriptions, schedule appointments, and much more. Follow these instructions to enter your personal [employer] account for the first time: 1. Start your internet browser and type [email or web address] into the address bar. 2. In the New User box on the right-hand side of the Welcome page click the link that states, ???I have an activation code.?? 3. On the Identification page, follow these steps: a) Enter your [employer] activation code: [email or web address] b) Expires: 09/07/2013 11:06 AM IMPORTANT: This Activation Code will on the above mentioned date. If you do not sign up for [employer] by this date, you will need to request another activation code. c) Enter your date of , using the calendar tool provided. d) Enter your Zip code. e) Select ???submit?? to go to the next page. 4. On the Create Account page, follow these steps: a) Create a [employer] username. This can???t be changed, so choose one you won???t forget. b) Create a password that???s at least six characters long, and that contains at least two numbers.Your password can be changed at any time. Confirm your password by entering it once more. c) Enter your email address. This will be used to alert you to new information. Confirm your email address by entering it once more. d) Enter your security question. This will be used if you forget your password. e) Enter your security answer. Confirm your security answer by entering it once more. f) Select ???submit?? to view your electronic medical record. If you have any questions about myD-H or your Access Code, please call for [place], for [place] or for [place]. If you need technical support, please e-mail [email or web address]. Remember, myD-H is NOT for urgent needs! Always dial 911 for medical emergencies. Wound documented in this encounter Progress Notes * Isaiah Mcpherson MD - 07/24/2013 4:22 PM EDT Rheumatology Clinic: Dr. Mcpherson 07/24/2013 [id number] Crystal Edmonds is seen in follow-up of her rheumatoid arthritis and fibromyalgia. We last saw her on 02/13/2013. She was doing well on Humira and methotrexate. Unfortunately, we received a phone call from her recently reporting that she's been diagnosed with left sided uveitis. She is following withDr. Hood. She has been tried on Pred Forte drops. Dr. Hood is seeing her every Saturday. Unfortunately, thus far the drops haven't helped and she is now up to using the drops every hour. She is also on drops to dilate her eyes. Her ocular pressure has been fine. She is scheduled to see Dr. Hood again in 3 days. When she called in here, she said she was also flaring in terms of her joint pain. This was particularly affecting the wrists, left greater than right, shoulders, and ankles. She had no carpal tunnelsymptoms. We put her on 20 mg of prednisone a day over the phone. That helped all of these joint pains, but apparently it didn't do much for the uveitis, as she's had a checkup with her gambling box person since then and not much has changed. At that point in time, though, she had only been on the prednisone for about 2 days. She's also had some nagging chest discomfort that is very nondescript and has no associated symptoms. She continues on the methotrexate 17.5 mg a week. We questioned her about whether she's taking her iron supplement. She is chronically iron deficient. We had her try Vitron C last time and she seemedto be able to tolerate that early on. However, she admits that she stopped it. Patient Active Problem List Diagnosis Code ??? Rheumatoid arthritis 714.0 ??? Fibromyalgia 729.1 ??? Depression 311 ??? Iron deficiency anemia due to chronic blood loss 280.0 ??? Sleep disturbance 780.50 ??? Uveitis 364.3 Current Outpatient Prescriptions on File Prior to Visit Medication Status Sig Dispense Refill ??? traZODone (DESYREL) 50 mg tablet Active TAKE ONE TO TWO TABLETS BY MOUTH EVERY EVENING 60 tablet 5 ??? Adalimumab (HUMIRA PEN) 40 mg/0.8 mL PnKt Active Inject 0.8 mLs subcutaneously every 14 days. 3kit 3 ??? methotrexate 2.5 mg tablet Discontinued Can take without regard to food. 84 tablet 1 ??? sertraline (ZOLOFT) 100 mg tablet Active Take 1 tablet by mouth daily. 90 tablet 3 ??? folic acid (FOLVITE) 1 mg tablet Active Take 1 tablet by mouth daily. 90 tablet 3 ??? CIS Free Text Med - Vitamin D Discontinued ??? GLUCOSAMINE SULFATE-MSM ORAL Discontinued ??? ferrous sulfate 325 mg (65 mg Iron) tablet Discontinued ??? DOCOSAHEXANOIC ACID/EPA (FISH OIL ORAL) Discontinued ??? amitriptyline (ELAVIL) 10 mg tablet Discontinued 10 M-2 Tablet(s), PO, QHS Physical Exam: She looks well, although seems a little tired and frustrated. Blood pressure 119/70, pulse 54, temperature 36.6 ??C (97.9 ??F), temperature source Oral, height 157.5 cm (5' 2), weight 70.308 kg (155 lb), SpO2 98.00%. Skin: Clear. HEENT: Her left eye and is obviously inflamed and she is mildly photophobic. Lungs: Clear. Heart: Regular rhythm and rate without murmur, gallop, or rub. Abdomen: Benign. No masses, tenderness, or organomegaly. Extremities: No edema. Good distal pulses. Musculoskeletal: She has no synovitis in the upper or lower extremities. Neuro: Grossly intact. Assessment: Ongoing uveitis despite [id number] Pred Forte drops. Her gambling box person is talking about possibly doing an intraocular injection should she fail the topical steroids. According to the patient, the gambling box person, Dr. Hood was happy to hear that she was on the prednisone and hoped that would help. It doesn't seem to be doing much so far and we decided today to bump her to 60 mg a day. We'll check laboratory work. She's going to be seeing her gambling box person in a few days. I asked her to check back with us when she gets her assessment from the gambling box person and we can adjust her medications accordingly. This is very disappointing that she developed uveitis, presumably from her underlying rheumatoid arthritis, because methotrexate and Humira are both drugs used to treat difficult uveitis, and yet she developed this problem while on those 2 drugs. We went over that indetail and she has been taking them faithfully. In any case we increased the methotrexate to 8 tablets or 20 mg a week. We'll give her at least one chance of clearing and maintaining with a prednisone taper, before considering major changes in her regimen, with agents directed at the the uveitis aswell as her underlying rheumatoid arthritis. We gave her the following specific instructions: 1. Get labs today. 2. Increase methotrexate to 8 tabs = 20 mg ONCE A WEEK. 3. Increase prednisone to 30 mg (3 tabs) twice a day. 4. Take Vitron C. 5. See eye doctor next week. 6. Let me know what she thinks. 7. Follow up in 2 months. 8. Stay in touch each week. I'll see her in followup in 2 months. Over 30 minutes of the 40 minute follow-up were spent discussing these problems and their treatmentoptions in [id number] counseling. Orders Placed This Encounter Procedures ??? Flu vaccine greater than or equal to 3yo preservative free ??? CBC (with Diff) ??? Angiotensin Converting Enzyme ??? QuantiFERON-TB Gold ??? GABRIELLE ??? Extractable Nuclear Antigen (HESHAM) Ab ??? DNA Antibody (Double-Stranded) ??? C3 Complement ??? C4 Complement ??? Iron and TIBC ??? Ferritin ??? Differential, Automated Visit Diagnoses: 1. Rheumatoid arthritis CBC (with Diff), C3 Complement, C4 Complement, predniSONE (DELTASONE) 10 mgtablet, methotrexate 2.5 mg tablet, CBC (with Diff), C3 Complement, C4 Complement 2. Iron deficiency anemia due to chronic blood loss Iron and TIBC, Ferritin, Iron and TIBC, Ferritin 3. Uveitis CBC (with Diff), Angiotensin Converting Enzyme, QuantiFERON-TB Gold, GABRIELLE, Extractable Nuclear Antigen (HESHAM) Ab, DNA Antibody (Double-Stranded), C3 Complement, C4 Complement, predniSONE (DELTASONE) 10 mg tablet, methotrexate 2.5 mg tablet, CBC (with Diff), Angiotensin Converting Enzyme, QuantiFERON-TB Gold, GABRIELLE, Extractable Nuclear Antigen (HESHAM) Ab, DNA Antibody (Double-Stranded), C3 Complement, C4 Complement 4. High risk medication use Flu vaccine greater than or equal to 3yo preservative free Results for CRYSTAL EDMONDS ( ) Ref. Range 07/24/2013 11:58 WBC Latest Range: 4.0-10.0 x10(3)/mcL 13.1 (H) RBC Latest Range: 3.93-5.22 x10(6)/mcL 4.26 Hemoglobin Latest Range: 11.2-15.7 gm/dL 13.1 Hematocrit Latest Range: 34.0-45.0 % 39.6 MCV Latest Range: 79.0-94.0 fL 93.0 MCH Latest Range: 26.6-32.2 pg 30.8 MCHC Latest Range: 32.0-36.5 gm/dL 33.1 RDWSD Latest Range: 35.0-46.0 fL 52.1 (H) RDWCV Latest Range: 10.9-14.4 % 15.5 (H) Platelets Latest Range: 145-370 x10(3)/mcL 316 MPV Latest Range: 9.0-12.0 fL 10.1 Neutr Abs (ANC) Latest Range: 1.50-6.30 x10(3)/mcL 11.33 (H) Neutrophils % Latest Range: 34.0-71.0 % 86.6 (H) Immature Gran % Latest Range: 0.00-0.66 % 0.40 Lymphocytes % Latest Range: 19.0-53.0 % 7.7 (L) Monocytes % Latest Range: 4.0-13.0 % 5.1 Eosinophils % Latest Range: 0.0-7.0 % 0.1 Basophils % Latest Range: 0.0-2.0 % 0.1 Abbie Gran Abs Latest Range: 0.00-0.05 x10(3)/mcL 0.05 Lymphocytes Abs Latest Range: 1.0-3.6 x10(3)/mcL 1.0 Monocyte Abs Latest Range: 0.2-1.0 x10(3)/mcL 0.7 Eosinophils Abs Latest Range: 0.0-0.5 x10(3)/mcL 0.0 Basophils Abs Latest Range: 0.0-0.2 x10(3)/mcL 0.0 Ferritin Latest Range: 15-150 ng/mL 10 (L) Iron Latest Range: 30-150 mcg/dL 30 TIBC Latest Range: 250-450 mcg/dL 380 Iron Saturation Latest Range: 20-50 % 8 (L) C3 Complement Latest Range: 90-180 mg/dL 92 C4 Complement Latest Range: 10-40 mg/dL 20 documented in this encounter Plan of Treatment Upcoming Encounters Date Type Department Care Team (Late st Contact Info) Description 07/21/2024 1:00 PM EDT Office [place] [address] Isaiah Mcpherson MD [facility] [place] [address] documented as of this encounter Procedures Procedure Name Priority Date/Time Associated Diagnosis Comments EXTRACTABLE NUCLEAR ANTIGEN (HESHAM) AB Routine 07/24/2013 11:58 AM EDT Uveitis QUANTIFERON-TB GOLD Routine 07/24/2013 1 1:58 AM EDT Uveitis DNA ANTIBODY (DOUBLE-STRANDED) Routine 07/24/2013 11:58 AM EDT Uveitis DIFFERENTIAL, AUTOMATED Routine 07/24/2013 11:58 AM EDT IRON AND TIBC Routine 07/24/2013 11:58 AM EDT Iron deficiency anemia due to chronic blood loss GABRIELLE TITER Routine 07/24/2013 11:58 AM EDT CBC (WITH DIFF) Routine 07/24/2013 11:58 AM EDT Rheumatoid arthritis Uveitis ANGIOTENSIN CONVERTING ENZYME Routine 07/24/2013 11:58 AM EDT Uveitis C3 COMPLEMENT Routine 07/24/2013 11:58 AM EDT Rheumatoid arthritis Uveitis C4 COMPLEMENT Routine 07/24/2013 11:58 AM EDT Rheumatoid arthritis Uveitis GABRIELLE ANTIBODY SCREEN Routine 07/24/2013 1 1:58 AM EDT Uveitis FERRITIN Routine 07/24/2013 11:58 AM EDT Iron deficiency anemia due to chronic blood loss documented in this encounter Results * GABRIELLE Titer (07/24/2013 11:58 AM EDT) GABRIELLE Titer [facility] Comment: 1:160 Titer seen with Speckled pattern. ??Is suggestive of autoantibodies to Sm, FLOOR FRAMER, SCL-70, or SS-B. Blood specimen (specimen) 07/24/2013 11:58 AM EDT 07/24/2013 2:10 PM EDT Narrative Resulting Agency Comment Spec In Lab Isaiah Mcpherson MD IMMUNOLOGY ORDERA [facility] * (ABNORMAL) Differential, Automated (07/24/2013 11:58 AM EDT) Neutrophil % 86.6(H) 34.0 - 71.0 % CERNER MILLENNIUM Neutrophil Absolute 11.33(H) 1.50 - 6.30 x10(3)/mc L CERNER MILLENNIUM Lymph % 7.7(L) 19.0 - 53.0 % [facility] MILLENNIUM Lymphocytes Abs 1.0 1.0 - 3.6 x10(3)/mc L CERNER MILLENNIUM Monocyte % 5.1 4.0 - 13.0 % CERNER MILLENNIUM Monocyte Abs 0.7 0.2 - 1.0 x10(3)/mc L CERNER MILLENNIUM Eos % 0.1 0.0 - 7.0 % CERNER MILLENNIUM Eosinophils Abs 0.0 0.0 - 0.5 x10(3)/mc L CERNER MILLENNIUM Basophil % 0.1 0.0 - 2.0 % CERNER MILLENNIUM Baso Absolute 0.0 0.0 - 0.2 x10(3)/mc L CERNER MILLENNIUM Immature Gran % 0.40 0.00 - 0.66 % CERNER MILLENNIUM Comment: Immature granulocytes(IG's)percentage and absolute count will include metamyelocytes, myelocytes, and promyelocytes. Blood smears from CBCs yielding IG's will be scanned manually for concordance. If this scan disagrees with the automated IG or if promyelocytes are noted, a manual differential will be performed. Immature Gran Absolute 0.05 0.00 - 0.05 x10(3)/mc L CERNER MILLENNIUM Blood specimen (specimen) 07/24/2013 11:58 AM EDT 07/24/2013 12:09 PM EDT Isaiah Mcpherson MD HEMATOLOGY ORDERA BLES CERYASSINE LAYENNIUM * (ABNORMAL) Ferritin (07/24/2013 11:58 AM EDT) [facility] Ferritin 10(L) 15 - 150 ng/mL CERNER MILLENNIUM Comment: Pediatric reference ranges not verified at [facility], interpret with caution. Reference ranges for females greater than 50 years of age approach values for men, i.e., 30-400 ng/mL. Blood specimen (specimen) 07/24/2013 11:58 AM EDT 07/24/2013 12:09 PM EDT Narrative Resulting Agency Comment Spec In Lab Isaiah Mcpherson MD CHEMISTRY ORDERAB LES CERNER MILLENNIUM * (ABNORMAL) Iron and TIBC (07/24/2013 11:58 AM EDT) Iron 30 30 - 150 mcg/dL [facility] MILLENNIUM TIBC 380 250 - 450 mcg/dL [facility] Iron Saturation 8(L) 20 - 50 % CERN MILLENNIUM Blood specimen (specimen) 07/24/2013 11:58 AM EDT 07/24/2013 12:09 PM EDT Narrative Resulting Agency Comment Spec In Lab Isaiah Mcpherson MD CHEMISTRY ORDERAB LES Performing Organization Address City/[facility]/ZIP Co de Phone Number [facility] * C4 Complement (07/24/2013 11:58 AM EDT) Complement C4 20 10 - 40 mg/dL [facility] Blood specimen (specimen) 07/24/2013 11:58 AM EDT 07/24/2013 12:09 PM EDT Narrative Resulting Agency Comment Spec In Lab Isaiah Mcpherson MD CHEMISTRY ORDERAB LES Performing Organization Address [facility] Co de Phone Number [facility] * C3 Complement (07/24/2013 11:58 AM EDT) Complement C3 92 90 - 180 mg/dL [facility] Blood specimen (specimen) 07/24/2013 11:58 AM EDT 07/24/2013 12:09 PM EDT Narrative Resulting Agency Comment Spec In Lab Isaiah Mcpherson MD CHEMISTRY ORDERAB LES Performing Organization Address City/[facility]/ZIP Co de Phone Number [facility]JOHNNY * DNA Antibody (Double-Stranded) (07/24/2013 11:58 AM EDT) DNA Ab (DS) Neg Neg [facility] PETERIUM Blood specimen (specimen) 07/24/2013 11:58 AM EDT 07/24/2013 2:10 PM EDT Narrative Resulting Agency Comment Spec In Lab Isaiah Mcpherson MD LAB SEND OUT VIKY APONTE [facility] * (ABNORMAL) Extractable Nuclear Antigen (HESHAM) Ab (07/24/2013 11:58 AM EDT) HESHAM Ab Test ?Result ?Flag ??Unit ??RefValue Ab to Extractable Nuclear Ag Eval,S ??SS-A/Ro Ab, IgG, S ?5.6 ?H ?U -- REFERENCE VALUE -- <1.0 (Negative) Interpretation: Positive (>=1.0) ??SS-B/La Ab, IgG, S ?0.9 ? U -- REFERENCE VALUE -- <1.0 (Negative) ??Sm Ab, IgG, S ? <0.2 ?U -- REFERENCE VALUE -- <1.0 (Negative) ??FLOOR FRAMER Ab, IgG, S ?0.8 ? U -- REFERENCE VALUE -- <1.0 (Negative) ??Scl 70 Ab, IgG, S ? <0.2 ?U -- REFERENCE VALUE -- <1.0 (Negative) ??Zoey 1 Ab, IgG, S ? <0.2 ?U -- REFERENCE VALUE -- <1.0 (Negative) Test Performed by: [employer] [address] [address] [place] Setter: Katherine Chowdhury, Ph.D.(A) MARBELLA STRONG Blood specimen (specimen) 07/24/2013 11:58 AM EDT 07/24/2013 1:51 PM EDT Narrative Resulting Agency Comment Spec In Lab Isaiah Mcpherson MD LAB SEND OUT VIKY MARINARJ Performing Organization Address [facility] Co de Phone Number MARBELLA STRONG * (ABNORMAL) GABRIELLE (07/24/2013 11:58 AM EDT) GABRIELLE Titer to follow(A) Neg MARBELLA STRONG Blood specimen (specimen) 07/24/2013 11:58 AM EDT 07/24/2013 2:10 PM EDT Narrative Resulting Agency Comment Spec In Lab Isaiah Mcpherson MD LAB SEND OUT VIKY MARINARJ Performing Organization Address [facility] de Phone Number MARBELLA STRONG * QuantiFERON-TB Gold (07/24/2013 11:58 AM EDT) Quantiferon-TB Gold Negative Negative MARBELLA STRONG Comment: Nil (IU/mL)=0.05 TB Ag minus Nil (IU/mL)=-0.03 Mitogen minus Nil (IU/mL)=1.23 M. tuberculosis (TB) infection NOT likely ?A negative specimen should have a TB Ag minus Nil value less than 0.35 IU/mL OR a TB Ag minus Nil greater than or equal to 0.35 IU/mL and in addition the TB Ag minus Nil value must be less than 25% of the Nil value. A negative specimen should have a Mitogen minus Nil value greater than or equal to 0.5 IU/mL. ?A negative QuantiFERON-TB Gold IT result does not preclude the possibility of M. tuberculosis infection or tuberculosis disease: false negative results can be due to stage of infection (e.g., specimen obtained prior to the development of cellular immune response), co-morbid conditions which affect immune function, or other individual immunological factors. ?The performance of the QuantiFERON-TB Gold IT test has not been extensively evaluated with specimens from the following groups of individuals: ?1. Individuals who have impaired or altered immune function such as those who have HIV infection or AIDS, those who have transplantation managed with immunosuppressive treatment or others who receive immunosuppressive drugs (e.g., corticosteroids, methotrexate, azathioprine, cancer chemotherapy), and those who have other clinical conditions: diabetes, silicosis, chronic renal failure, hematological disorders (e.g., leukemia and lymphomas), and other specific malignancies (e.g., carcinoma of the head or neck and lung). ?2. Individuals younger than age 17 years. ?3. women. Note: Diagnosing or excluding tuberculosis disease, and assessing the probability of LTBI, require a combination of epidemiological, historical, medical, and diagnostic findings that should be taken into account when interpreting QuantiFERON-TB Gold results. Reference (http://www.cdc.gov/nchstp/tb/) Blood specimen (specimen) 07/24/2013 11:58 AM EDT 07/27/2013 8:21 AM EDT Narrative Resulting Agency Comment Spec In Lab Isaiah Mcpherson MD CHEMISTRY ORDERAB LES Performing Organization Address City/[facility]/ZIP Co de Phone Number [employer] * Angiotensin Converting Enzyme (07/24/2013 11:58 AM EDT) Pathologist [facility] Michael (FEBRUARY) 29 8 - 53 unit/L [facility] Comment: Test Performed by: [facility] [address] [place] [address] Tombstone Setter: Katherine Chowdhury, Ph.D. Blood specimen (specimen) 07/24/2013 11:58 AM EDT 07/24/2013 1:51 PM EDT Narrative Resulting Agency Comment Spec In Lab Isaiah Mcpherson MD LAB SEND OUT VIKY APONTE Performing Organization Address City/[facility]/ZIP Co de Phone Number [facility] [employer] * (ABNORMAL) CBC (with Diff) (07/24/2013 11:58 AM EDT) Pathologist [facility] White Blood Cell 13.1(H) 4.0 - 10.0 x10(3)/mc L CERNER MILLENNIUM Red Blood Cell 4.26 3.93 - 5.22 x10(6)/mc L CERNER MILLENNIUM Hemoglobin 13.1 11.2 - 15.7 gm/dL CERNER MILLENNIUM Hematocrit 39.6 34.0 - 45.0 % CERNER MILLENNIUM Mean Cell Volume 93.0 79.0 - 94.0 fL CERNER MILLENNIUM Mean Cell Hemoglobin 30.8 26.6 - 32.2 pg CERNER MILLENNIUM Mean Cell Hemoglobin Concentration 33.1 32.0 - 36.5 gm/dL CERNER MILLENNIUM Platelet 316 145 - 370 x10(3)/mc L CERNER MILLENNIUM RDW Standard Deviation 52.1(H) 35.0 - 46.0 fL CERNER MILLENNIUM RDW coefficient of variation 15.5(H) 10.9 - 14.4 % CERNER MILLENNIUM Mean Platelet Volume 10.1 9.0 - 12.0 fL CERNER MILLENNIUM Blood specimen (specimen) 07/24/2013 11:58 AM EDT 07/24/2013 12:09 PM EDT Narrative Resulting Agency Comment Spec In Lab Isaiah Mcpherson MD HEMATOLOGY ORDERA BLES MARBELLA STRONG documented in this encounter Visit Diagnoses Diagnosis Rheumatoid arthritis(714.0) Rheumatoid arthritis Iron deficiency anemia due to chronic blood loss Iron deficiency anemia secondary to blood loss (chronic) Uveitis Unspecified iridocyclitis High risk medication use Encounter for long-term (current) use of other medications documented in this encounter Care Teams Computer Designer Relationship Specialty Start Date End Date Jennifer Anaya APRN [facility] [place] [address] PCP - General 08/17/11 01/03/17 documented as of this encounter
--- OUTSIDE RECORDS SUMMARY | 2024-06-19 00:22 | XMS_ITS | Encounter Summary ---
Author Organization [facility] [place] [address] Care Team Providers Care Supervisor Net Making Name Role Phone Jennifer Anaya APRN Primary Care Provider [phone] Reason for Visit * Reason Comments Rheumatoid Arthritis Encounter Details Date Type Department Care Team (Late st Contact Info) Description 05/20/2014 1:30 PM EDT [place] [address] Isaiah Mcpherson MD [facility] [place] [address] Sleep disturbance; Iron deficiency anemia due to chronic blood loss; Rheumatoid arthritis; Fibromyalgia; High risk medication use; RLS (restless legs syndrome) Discharge Disposition: Home Social History Tobacco Use Types Packs/Day Years Used Date Smoking Tobacco: Former Sex and Gender Information Value Date Recorded Sex Assigned at Not on file Gender Identity Not on file Sexual Orientation Not on file documented as of this encounter Last Filed Vital Signs Vital Sign Reading Time Taken Comments Blood Pressure 119/59 05/20/2014 1:29 PM EDT Pulse 59 05/20/2014 1:29 PM EDT Temperature 36.7 ??C (98 ??F) 05/20/2014 1:29 PM EDT Respiratory Rate - - Oxygen Saturation 97% 05/20/2014 1:29 PM EDT Inhaled Oxygen Concentration - - Weight 69.9 kg (154 lb) 05/20/2014 1:29 PM EDT Height 157.5 cm (5' 2) 05/20/2014 1:29 PM EDT Body Mass Index 28.17 05/20/2014 1:29 PM EDT documented in this encounter Patient Instructions * Patient Instructions* Isaiah Mcpherson MD - 05/20/2014 2:17 PM EDT Get labs today. Call for results. Start Requip at 1 pill a night. If not enough, increase to 2 at night. Ask your mom if you stop breathing during the night. Follow up in 6 months. We will probably get follow up x-rays at that time to make sure everything going okay. Call if problems. documented in this encounter Progress Notes * Isaiah Mcpherson MD - 05/20/2014 6:51 PM EDT Rheumatology Clinic: Dr. Mcpherson 05/20/2014 [id number] Crystal Edmonds is seen in follow-up of her rheumatoid arthritis, fibromyalgia, and rheumatoid-related uveitis. Interestingly she is very CCP positive, but she is also GABRIELLE positive and Ro positive. She continues to do well on methotrexate and Humira, although she is concerned that she may have some activity. She flares up now and then. This particularly affects her PIPs , wrists , knees, and ankles. However upon careful questioning a lot of this sounds more mechanical. 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 She also continues to have problems with fatigue. We have questioned the quality of her sleep in the past. She is now in the same room as her mother because of the need for air conditioning. The mother has told her that she snores. Interestingly the mother is on CPAP. She herself notes that she has a lot of restless leg issues. She has a very difficult time getting comfortable and her legs are jumping all night. She's never been on medication specifically for that. We did have her on trazodone at one point and that was very effective for sleep, but caused a lot of dryness. Patient Active Problem List Diagnosis Code ??? Rheumatoid arthritis 714.0 ??? Fibromyalgia 729.1 ??? Depression 311 ??? Iron deficiency anemia due to chronic blood loss 280.0 ??? Sleep disturbance 780.50 ??? Uveitis 364.3 ??? Anxiety 300.00 ??? 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 methotrexate 2.5 mg tablet Take 8 tablets by mouth once a week. Can take without regard to food. Call clinic before/prior to starting medication/script. Yes Adalimumab (HUMIRA PEN) 40 mg/0.8 mL PnKt Inject 0.8 mLs subcutaneously every 14 days. Yes traZODone (DESYREL) 50 mg tablet TAKE ONE TO TWO TABLETS BY MOUTH EVERY EVENING Yes sertraline (ZOLOFT) 100 mg tablet Take 1 tablet by mouth daily. Yes folic acid (FOLVITE) 1 mg tablet TAKE ONE TABLET BY MOUTH EVERY DAY Yes rOPINIRole (REQUIP) 0.25 mg tablet Take 1-2 tablets by mouth nightly. Physical Exam: She looks well. She is in good spirits. Blood pressure 119/59, pulse 59, temperature 36.7 ??C (98 ??F), temperature source Oral, height 157.5 cm (5' 2), weight 69.854 kg (154 lb), SpO2 97.00%. Skin: Clear. HEENT: Unremarkable. Lungs: Clear. Heart: Regular rhythm and rate without murmur, gallop, or rub. Abdomen: Benign. No masses, tenderness, or organomegaly. Extremities: No edema. Good distal pulses. Musculoskeletal: She has some minor swelling to the right second MCP and the right wrist, but it's not clearly active synovitis. Her elbows and shoulders move well. Her hips move well. Her knees are fine. Her ankles move well. There is no warmth or swelling. Distal feet show DJD without synovitis. Neuro: Grossly intact. Assessment: I tried to reassure her once again that I think her rheumatoid arthritis is doing well and that a lot of the pain she's experiencing now is either unrelated and mechanical in nature or represents just mild flaring of her rheumatoid, not worth chasing with more remittive agents. At the end of the day though, we agreed to check x-rays of her hands and feet at her six-month followup to make sure that she's not developing progressive erosive disease. In terms of her sleep, we decided toput her on Requip 0.25-0.5 mg at night. She'll let us know how that goes. We'll check lab work today. I'll see her in followup in 6 months. We gave the patient the following specific instructions: Patient Instructions Get labs today. Call for results. Start Requip at 1 pill a night. If not enough, increase to 2 at night. Ask your mom if you stop breathing during the night. Follow up in 6 months. We will probably get follow up x-rays at that time to make sure everything going okay. Call if problems. Over 20 minutes of the 25 minute follow-up were spent discussing these problems and their treatmentoptions in [id number] counseling. Orders Placed This Encounter Procedures ??? CBC (with Diff) ??? Comprehensive metabolic panel (non-fasting) ??? Hemogram ??? Differential, Automated Visit Diagnoses: 1. Sleep disturbance rOPINIRole (REQUIP) 0.25 mg tablet 2. Iron deficiency anemia due to chronic blood loss 3. Rheumatoid arthritis methotrexate 2.5 mg tablet CBC (with Diff) Comprehensive metabolic panel (non-fasting) CBC (with Diff) Comprehensive metabolic panel (non-fasting) 4. Fibromyalgia 5. High risk medication use CBC (with Diff) Comprehensive metabolic panel (non-fasting) CBC (with Diff) Comprehensive metabolic panel (non-fasting) Hemogram Differential, Automated 6. RLS (restless legs syndrome) rOPINIRole (REQUIP) 0.25 mg tablet Results for CRYSTAL EDMONDS ( ) Ref. Range 05/20/2014 14:39 WBC Latest Range: 4.0-10.0 x10(3)/mcL 4.9 RBC Latest Range: 3.93-5.22 x10(6)/mcL 4.12 Hemoglobin Latest Range: 11.2-15.7 gm/dL 13.6 Hematocrit Latest Range: 34.0-45.0 % 39.8 MCV Latest Range: 79.0-94.0 fL 96.6 (H) MCH Latest Range: 26.6-32.2 pg 33.0 (H) MCHC Latest Range: 32.0-36.5 gm/dL 34.2 RDWSD Latest Range: 35.0-46.0 fL 47.3 (H) RDWCV Latest Range: 10.9-14.4 % 13.5 Platelets Latest Range: 145-370 x10(3)/mcL 282 MPV Latest Range: 9.0-12.0 fL 10.0 Neutr Abs (ANC) Latest Range: 1.50-6.30 x10(3)/mcL 2.88 Neutrophils % Latest Range: 34.0-71.0 % 58.9 Immature Gran % Latest Range: 0.00-0.66 % 0.00 Lymphocytes % Latest Range: 19.0-53.0 % 31.5 Monocytes % Latest Range: 4.0-13.0 % 7.0 Eosinophils % Latest Range: 0.0-7.0 % 2.2 Basophils % Latest Range: 0.0-2.0 % 0.4 Abbie Gran Abs Latest Range: 0.00-0.05 x10(3)/mcL 0.00 Lymphocytes Abs Latest Range: 1.0-3.6 x10(3)/mcL 1.5 Monocyte Abs Latest Range: 0.2-1.0 x10(3)/mcL 0.3 Eosinophils Abs Latest Range: 0.0-0.5 x10(3)/mcL 0.1 Basophils Abs Latest Range: 0.0-0.2 x10(3)/mcL 0.0 Sodium Latest Range: 135-145 mmol/L 140 Potassium Latest Range: 3.5-5.0 mmol/L 4.3 Chloride Latest Range: 98-107 mmol/L 104 CO2 Latest Range: 22-31 mmol/L 27 Anion Gap Latest Range: 5-15 mmol/L 9 BUN Latest Range: 8-18 mg/dL 15 Creatinine Latest Range: 0.70-1.20 mg/dL 0.72 Estimated GFR Latest Range: >=60 >60 Glucose Lvl Latest Range: 60-199 mg/dL 92 Calcium Latest Range: 8.5-10.5 mg/dL 9.5 Total Protein Latest Range: 6.4-8.3 gm/dL 7.1 Albumin Latest Range: 3.2-5.2 gm/dL 4.1 Total Bilirubin Latest Range: 0.2-1.3 mg/dL 0.3 Bili, Direct Latest Range: 0.0-0.3 mg/dL 0.1 Alk Phos Latest Range: 40-104 unit/L 50 AST Latest Range: 0-30 unit/L 17 ALT Latest Range: 0-30 unit/L 8 documented in this encounter Plan of Treatment Upcoming Encounters Date Type Department Care Team (Late st Contact Info) Description 07/21/2024 1:00 PM EDT Office [place] [address] Isaiah Mcpherson MD [facility] [place] [address] documented as of this encounter Procedures Procedure Name Priority Date/Time Associated Diagnosis Comments HEMOGRAM Routine 05/20/2014 2:39 PM EDT Rheumatoid arthritis(714.0) High risk medication use DIFFERENTIAL, AUTOMATED Routine 05/20/2014 2:39 PM EDT Rheumatoid arthritis(714.0) High risk medication use CBC (WITH DIFF) Routine 05/20/2014 2:39 PM EDT Rheumatoid arthritis High risk medication use COMPREHENSIVE METABOLIC PANEL Routine 05/20/2014 2:39 PM EDT Rheumatoid arthritis High risk medication use documented in this encounter Results * Differential, Automated (05/20/2014 2:39 PM EDT) Neutrophil % 58.9 34.0 - 71.0 % CERNER MILLENNIUM Neutrophil Absolute 2.88 1.50 - 6.30 x10(3)/mcL CERNER MILLENNIUM Lymph % 31.5 19.0 - 53.0 % CERNER MILLENNIUM Lymphocytes Abs 1.5 1.0 - 3.6 x10(3)/mcL CERNER MILLENNIUM Monocyte % 7.0 4.0 - 13.0 % CERNER MILLENNIUM Monocyte Abs 0.3 0.2 - 1.0 x10(3)/mcL CERNER MILLENNIUM Eos % 2.2 0.0 - 7.0 % CERNER MILLENNIUM Eosinophils Abs 0.1 0.0 - 0.5 x10(3)/mcL CERNER MILLENNIUM Basophil % 0.4 0.0 - 2.0 % CERNER MILLENNIUM Baso Absolute 0.0 0.0 - 0.2 x10(3)/mcL CERNER MILLENNIUM Immature Gran % 0.00 0.00 - 0.66 % CERNER MILLENNIUM Comment: Immature granulocytes(IG's)percentage and absolute count will include metamyelocytes, myelocytes, and promyelocytes. Blood smears from CBCs yielding IG's will be scanned manually for concordance. If this scan disagrees with the automated IG or if promyelocytes are noted, a manual differential will be performed. Immature Gran Absolute 0.00 0.00 - 0.05 x10(3)/mcL CERNER MILLENNIUM Blood specimen (specimen) 05/20/2014 2:39 PM EDT 05/20/2014 2:49 PM EDT Narrative Resulting Agency Comment Spec In Lab Isaiah Mcpherson MD HEMATOLOGY [facility] CERNER MILLENNIUM * (ABNORMAL) Hemogram (05/20/2014 2:39 PM EDT) White Blood Cell 4.9 4.0 - 10.0 x10(3)/mc L CERNER MILLENNIUM Red Blood Cell 4.12 3.93 - 5.22 x10(6)/mc L CERNER MILLENNIUM Hemoglobin 13.6 11.2 - 15.7 gm/dL CERNER MILLENNIUM Hematocrit 39.8 34.0 - 45.0 % CERNER MILLENNIUM Mean Cell Volume 96.6(H) 79.0 - 94.0 fL CERNER MILLENNIUM Mean Cell Hemoglobin 33.0(H) 26.6 - 32.2 pg CERNER MILLENNIUM Mean Cell Hemoglobin Concentration 34.2 32.0 - 36.5 gm/dL CERNER MILLENNIUM Platelet 282 145 - 370 x10(3)/mc L CERNER MILLENNIUM RDW Standard Deviation 47.3(H) 35.0 - 46.0 fL CERNER MILLENNIUM RDW coefficient of variation 13.5 10.9 - 14.4 % CERNER MILLENNIUM Mean Platelet Volume 10.0 9.0 - 12.0 fL CERNER MILLENNIUM Blood specimen (specimen) 05/20/2014 2:39 PM EDT 05/20/2014 2:49 PM EDT Narrative Resulting Agency Comment Spec In Lab Isaiah Mcpherson MD HEMATOLOGY [facility] CERNER MILLENNIUM * Comprehensive metabolic panel (non-fasting) (05/20/2014 2:39 PM EDT) Glucose 92 60 - 199 mg/dL CERNER MILLENNIUM Comment:Diabetes: >=200 mg/d L plus symptoms Blood Urea Nitrogen 15 8 - 18 mg/dL CERNER MILLENNIUM Creatinine 0.72 0.70 - 1.20 mg/dL CERNER MILLENNIUM Comment: Please note that the pediatric reference intervals supplied above were not validated at [facility]. Results from pediatric patients should be interpreted in conjunction to the patient's age, height and muscle mass. Sodium 140 135 - 145 mmol/L CERNER MILLENNIUM Potassium 4.3 3.5 - 5.0 mmol/L CERNER MILLENNIUM Comment: Please note: ??Patients with WBC >100,000 may have falsely elevated Potassium levels. ??For accurate Potassium quantification in these patients send serum separator tube (gold top) for subsequent determinations. ??Contact the Clinical Chemistry Laboratory if there are any questions. Chloride 104 98 - 107 mmol/L CERNER MILLENNIUM Carbon Dioxide 27 22 - 31 mmol/L CERNER MILLENNIUM Anion Gap 9 5 - 15 mmol/L CERNER MILLENNIUM Calcium 9.5 8.5 - 10.5 mg/dL CERNER MILLENNIUM Protein, Total 7.1 6.4 - 8.3 gm/dL CERNER MILLENNIUM Albumin 4.1 3.2 - 5.2 gm/dL CERNER MILLENNIUM Aspartate Aminotransferase 17 0 - 30 unit/L CERNER MILLENNIUM Alanine Aminotransferase 8 0 - 30 unit/L CERNER MILLENNIUM Alkaline Phosphatase 50 40 - 104 unit/L CERNER MILLENNIUM Bilirubin, [...] the following links into your internet browser. [email or web address] [email or web address] Blood specimen (specimen) 05/20/2014 2:39 PM EDT 05/20/2014 2:49 PM EDT Narrative Resulting Agency Comment Spec In Lab Isaiah Mcpherson MD CHEMISTRY [facility] documented in this encounter Visit Diagnoses Diagnosis Sleep disturbance Sleep disturbance, unspecified Iron deficiency anemia due to chronic blood loss Iron deficiency anemia secondary to blood loss (chronic) Rheumatoid arthritis Fibromyalgia Mylagia and myositis, unspecified High risk medication use Encounter for long-term (current) use of other medications RLS (restless legs syndrome) Restless legs syndrome (RLS) documented in this encounter Care Teams Supervisor Net Making Relationship Specialty Start Date End Date Jennifer Anaya APRN [place] [address] PCP - General 08/17/11 01/03/17 documented as of this encounter
--- OUTSIDE RECORDS SUMMARY | 2024-06-19 00:22 | XMS_ITS | Encounter Summary ---
Author Organization [facility] [place] [address] Care Team Providers Care Ldr Rn Name Role Phone Héctor Jennifer Coffey APRN Primary Care Provider [phone]- [phone] Encounter Details Date Type Department Care Team (Late st Contact Info) Description 05/09/2016 11:30 AM EDT [place] [address] Isaiah Mcpherson MD [facility] [place] [address] Primary osteoarthritis of both hips; Pain in right hip; High risk medication use; Iron deficiency anemia due to chronic blood loss; Fibromyalgia; Rheumatoid arthritis(394.0) Social History Tobacco Use Types Packs/Day Years Used Date Smoking Tobacco: Former Smokeless Tobacco: Never Sex and Gender Information Value Date Recorded Sex Assigned at Not on file Gender Identity Not on file Sexual Orientation Not on file documented as of this encounter Last Filed Vital Signs Vital Sign Reading Time Taken Comments Blood Pressure 117/73 05/09/2016 11:23 AM EDT Pulse 63 05/09/2016 11:23 AM EDT Temperature 36.8 ??C (98.2 ??F) 05/09/2016 11:23 AM E DT Respiratory Rate 18 05/09/2016 11:23 AM EDT Oxygen Saturation 99% 05/09/2016 11:23 AM EDT Inhaled Oxygen Concentration - - Weight 71.7 kg (158 lb) 05/09/2016 11:23 AM EDT Height 157.5 cm (5' 2) 05/09/2016 11:23 AM EDT Body Mass Index 28.9 05/09/2016 11:23 AM EDT documented in this encounter Patient Instructions * Patient Instructions* Isaiah Mcpherson MD - 05/09/2016 12:20 PM EDT Images from the original note were not included. Get labs today. Call for results. Try meloxicam, once a day, with food. Try for 2-4 weeks and let us know if it's helping. Do back exercises. Follow up in 4 months. Stay in touch. [facility] Low Back Pain: Exercises Your Care Instructions Here are some examples of typical rehabilitation exercises for your condition. Start each exercise slowly. Ease off the exercise if you start to have pain. Your doctor or physical therapist will tell you when you can start these exercises and which ones will work best for you. How to do the exercises Press-up 1. Lie on your stomach, supporting your body with your forearms. 2. Press your elbows down into the floor to raise your upper back. As you do this, relax your stomach muscles and allow your back to arch without using your back muscles. As your press up, do not letyour hips or pelvis come off the floor. 3. Hold for 15 to 30 seconds, then relax. 4. Repeat 2 to 4 times. Alternate arm and leg (bird dog) exercise Note: Do this exercise slowly. Try to keep your body straight at all times, and do not let one hip drop lower than the other. 1. Start on the floor, on your hands and knees. 2. Tighten your belly muscles. 3. Raise one leg off the floor, and hold it straight out behind you. Be careful not to let your hipdrop down, because that will twist your trunk. 4. Hold for about 6 seconds, then lower your leg and switch to the other leg. 5. Repeat 8 to 12 times on each leg. 6. Over time, work up to holding for 10 to 30 seconds each time. 7. If you feel stable and secure with your leg raised, try raising the opposite arm straight out infront of you at the same time. [id number]-[id number] exercise 1. Lie on your back with your knees bent and your feet flat on the floor. 2. Bring one knee to your chest, keeping the other foot flat on the floor (or keeping the other legstraight, whichever feels better on your lower back). 3. Keep your lower back pressed to the floor. Hold for at least 15 to 30 seconds. 4. Relax, and lower the knee to the starting position. 5. Repeat with the other leg. Repeat 2 to 4 times with each leg. 6. To get more stretch, put your other leg flat on the floor while pulling your knee to your chest. Curl-ups 1. Lie on the floor on your back with your knees bent at a 90-degree angle. Your feet should be flat on the floor, about 12 inches from your buttocks. 2. Cross your arms over your chest. If this bothers your neck, try putting your hands behind your neck (not your head), with your elbows spread apart. 3. Slowly tighten your belly muscles and raise your shoulder blades off the floor. 4. Keep your head in line with your body, and do not press your chin to your chest. 5. Hold this position for 1 or 2 seconds, then slowly lower yourself back down to the floor. 6. Repeat 8 to 12 times. Pelvic tilt exercise 1. Lie on your back with your knees bent. 2. Brace your stomach. This means to tighten your muscles by pulling in and imagining your belly button moving toward your spine. You should feel like your back is pressing to the floor and your hips and pelvis are rocking back. 3. Hold for about 6 seconds while you breathe smoothly. 4. Repeat 8 to 12 times. Heel dig bridging 1. Lie on your back with both knees bent and your ankles bent so that only your heels are digging into the floor. Your knees should be bent about 90 degrees. 2. Then push your heels into the floor, squeeze your buttocks, and lift your hips off the floor until your shoulders, hips, and knees are all in a straight line. 3. Hold for about 6 seconds as you continue to breathe normally, and then slowly lower your hips back down to the floor and rest for up to 10 seconds. 4. Do 8 to 12 repetitions. Hamstring stretch in doorway 1. Lie on your back in a doorway, with one leg through the open door. 2. Slide your leg up the wall to straighten your knee. You should feel a gentle stretch down the back of your leg. 3. Hold the stretch for at least 15 to 30 seconds. Do not arch your back, point your toes, or bend either knee. Keep one heel touching the floor and the other heel touching the wall. 4. Repeat with your other leg. 5. Do 2 to 4 times for each leg. Hip flexor stretch 1. Kneel on the floor with one knee bent and one leg behind you. Place your forward knee over your foot. Keep your other knee touching the floor. 2. Slowly push your hips forward until you feel a stretch in the upper thigh of your rear leg. 3. Hold the stretch for at least 15 to 30 seconds. Repeat with your other leg. 4. Do 2 to 4 times on each side. Wall sit 1. Stand with your back 10 to 12 inches away from a wall. 2. Lean into the wall until your back is flat against it. 3. Slowly slide down until your knees are slightly bent, pressing your lower back into the wall. 4. Hold for about 6 seconds, then slide back up the wall. 5. Repeat 8 to 12 times. Follow-up care is a dean part of your treatment and safety. Be sure to make and go to all appointments, and call your doctor if you are having problems. It's also a good idea to know your test resultsand keep a list of the medicines you take. Where can you learn more? Visit our health information library at [email or web address] You can also view health information on [employer], your personal patient account. Log in or sign up today. Enter Z938 in the search box to learn more about Low Back Pain: Exercises. ?? [id number] [employer]. Care instructions adapted under license by [facility]. This care instruction is for use with your licensed healthcare professional. If you have questions about a medical condition or this instruction, always ask your healthcare professional. [employer] disclaims any warranty or liability for your use of this information. Content Version: 10.4.691174; Current as of: June 07, 2014 documented in this encounter Progress Notes * Isaiah Mcpherson MD - 05/09/2016 11:30 AM EDT Rheumatology Clinic: Dr. Mcpherson 05/09/2016 [id number] Crystal Edmonds is seen in follow-up of her rheumatoid arthritis and soft tissue pain. She also has trochanteric bursitis and some costochondritis. The last time she was in on 11/09/2015, she was very concerned about her left hip. In fact, she brought her sister long for moral support. We went ahead and obtained hip films which showed mild degenerative disease, not only of the hip joints but also the SI joints. We went on to get an MRI of that left hip. The report is below and basically just showed mild degenerative disease, as well as trochanteric bursitis/gluteal tendinitis. She continues to complain of that left hip pain today. She is particularly achy today which she ascribes to [place] She picked six 10 gallon buckets of strawberries and felt very achy the following morning, which was yesterday. Prior to that, she had actually been doing well. But with that she's having more pain in the hips, both sides, worse on the right. She gestures to the SI areas bilaterally. She's not describing lateral hip pain today, nor is she having deep groin pain. When she takes Tylenol for this, it helps, but she doesn't like the idea of popping Tylenol every few hours. She also complained about some recent cough with thick sputum. With the coughing, she had some difficulty breathing and some upper anterior chest pain which sounds like her typical costochondritis. She also complains of being tired and sleeping a lot. She has not been taking an iron supplement of late. She has a chronic problem with recurrent iron deficiency. As with other recent visits, today she is not describing anything that would be interpreted as active inflammatory arthritis consistent with her rheumatoid. That seems to be well controlled on the current regimen that includes methotrexate and adalimumab. She's currently not on an anti-inflammatory. Patient Active Problem List Diagnosis Code ??? Rheumatoid arthritis(714.0) M06.9 ??? Fibromyalgia M79.7 ??? Depression F32.9 ??? Iron deficiency anemia due to chronic blood loss D50.0 ??? Sleep disturbance G47.9 ??? Uveitis H20.9 ??? Anxiety F41.9 ??? Enthesopathy of hip region M76.899 ??? Perimenopausal N95.1 ??? Myalgia and myositis M79.1, M60.9 ??? Costochondritis M94.0 ??? High risk medication use Z79.899 ??? Pain in right hip M25.551 ??? Primary osteoarthritis of both hips M16.0 Medications 05/09/16 1125 Medication Sig Taking? sertraline (ZOLOFT) 100 mg Tablet TAKE ONE TABLET BY MOUTH EVERY DAY Yes Adalimumab (HUMIRA PEN) 40 mg/0.8 mL Pen Injector Kit Inject 0.8 mLs subcutaneously every 14 days. Yes methotrexate 2.5 mg Tablet Take 8 tablets by mouth once a week. Can take without regard to food. Call clinic before/prior to starting medication/script. Yes folic acid (FOLVITE) 1 mg Tablet Take 1 tablet by mouth daily. Yes meloxicam (MOBIC) 7.5 mg Tablet Take 1 tablet by mouth daily. busPIRone (BUSPAR) 10 mg Tablet Take 10 mg by mouth nightly. Physical Exam: She looks well and healthy, although she is somewhat anxious. Blood pressure 117/73, pulse 63, temperature 36.8 ??C (98.2 ??F), resp. rate 18, height 157.5 cm (5' 2), weight 71.7 kg (158 lb), SpO2 99 %. Skin: Clear. HEENT: Unremarkable. Lungs: Clear. Heart: Regular rhythm and rate without murmur, gallop, or rub. Abdomen: Benign. No masses, tenderness, or organomegaly. Extremities: No edema. Good distal pulses. Musculoskeletal: She has absolutely no synovitis in her hands and very little in the way of degenerative disease. Her wrists, elbows, and shoulders move well. Her hips move well. The area of her backpain is actually in the pelvis and into the SI joint. She is tender all along the SI joints, all the way up to the pelvic brim bilaterally, worse on the right. This is mild tenderness. Her knees movewell. Her ankles are fine although hypermobile. Distal feet show DJD without synovitis. Neuro: Grossly intact. Assessment: We had a long discussion about her situation. I told her that this hip pain is probably more likely SI pain, or even low back, possibly from facet arthropathy, and has nothing to do with her rheumatoid arthritis. We gave her some back exercises and I also recommended that she go on a regular anti- inflammatory. She really only eats one consistent meal every day at the same time and that's lunch and we suggested she take the meloxicam then. We'll start her at 7.5 mg a day. I did tryand encourage her in pointing out that her rheumatoid arthritis is in excellent control. As far as her fatigue, I think that's more likely iron deficiency again. We'll check her methotrexate labs toda y, as well as her iron studies. I asked her to call to go over the results and we will make furtherdecisions from there. She understood the plan. I'll see her back in 4 months. We gave the patient the following specific instructions: Patient Instructions Get labs today. Call for results. Try meloxicam, once a day, with food. Try for 2-4 weeks and let us know if it's helping. Do back exercises. Follow up in 4 months. Stay in touch. Over 30 minutes of the 40 minute follow-up were spent discussing these problems and their treatmentoptions in [id number] counseling. Orders Placed This Encounter Procedures ??? CBC (with Diff) ??? Comprehensive metabolic panel (non-fasting) ??? Iron and TIBC ??? Ferritin ??? High Sensitivity CRP ??? Hemogram ??? Differential, Automated Visit Diagnoses: 1. Primary osteoarthritis of both hips meloxicam (MOBIC) 7.5 mg Tablet 2. Pain in right hip meloxicam (MOBIC) 7.5 mg Tablet 3. High risk medication use CBC (with Diff) Comprehensive metabolic panel (non-fasting) Iron and TIBC Ferritin CBC (with Diff) Comprehensive metabolic panel (non-fasting) Iron and TIBC Ferritin Hemogram Differential, Automated 4. Iron deficiency anemia due to chronic blood loss 5. Fibromyalgia meloxicam (MOBIC) 7.5 mg Tablet 6. Rheumatoid arthritis(714.0) High Sensitivity CRP meloxicam (MOBIC) 7.5 mg Tablet High Sensitivity CRP Results for CRYSTAL EDMONDS ( ) Ref. Range 05/09/2016 13:00 WBC Latest Ref Range: 4.0 - 10.0 x10(3)/mcL 5.7 RBC Latest Ref Range: 3.93 - 5.22 x10(6)/mcL 4.05 Hemoglobin Latest Ref Range: 11.2 - 15.7 gm/dL 13.1 Hematocrit Latest Ref Range: 34.0 - 45.0 % 38.7 MCV Latest Ref Range: 79.0 - 94.0 fL 95.6 (H) MCH Latest Ref Range: 26.6 - 32.2 pg 32.3 (H) MCHC Latest Ref Range: 32.0 - 36.5 gm/dL 33.9 RDWSD Latest Ref Range: 35.0 - 46.0 fL 45.8 RDWCV Latest Ref Range: 10.9 - 14.4 % 13.2 Platelets Latest Ref Range: 145 - 370 x10(3)/mcL 282 MPV Latest Ref Range: 9.0 - 12.0 fL 10.2 Neutr Abs (ANC) Latest Ref Range: 1.50 - 6.30 x10(3)/mcL 3.47 Neutrophils % Latest Units: % 60.8 Immature Gran % Latest Units: % 0.20 Lymphocytes % Latest Units: % 30.3 Monocytes % Latest Units: % 6.1 Eosinophils % Latest Units: % 2.1 Basophils % Latest Units: % 0.5 Abbie Gran Abs Latest Ref Range: 0.00 - 0.05 x10(3)/mcL 0.01 Lymphocytes Abs Latest Ref Range: 1.0 - 3.6 x10(3)/mcL 1.7 Monocyte Abs Latest Ref Range: 0.2 - 1.0 x10(3)/mcL 0.4 Eosinophils Abs Latest Ref Range: 0.0 - 0.5 x10(3)/mcL 0.1 Basophils Abs Latest Ref Range: 0.0 - 0.2 x10(3)/mcL 0.0 Sodium Latest Ref Range: 135 - 145 mmol/L 141 Potassium Latest Ref Range: 3.5 - 5.0 mmol/L 4.3 Chloride Latest Ref Range: 98 - 107 mmol/L 102 CO2 Latest Ref Range: 22 - 31 mmol/L 27 Anion Gap Latest Ref Range: 5 - 15 mmol/L 12 BUN Latest Ref Range: 8 - 18 mg/dL 7 (L) Creatinine Latest Ref Range: 0.70 - 1.20 mg/dL 0.76 Estimated GFR Latest Ref Range: >=60 >60 Glucose Lvl Latest Ref Range: 65 - 199 mg/dL 88 Calcium Latest Ref Range: 8.5 - 10.5 mg/dL 9.1 Total Protein Latest Ref Range: 6.1 - [...] Latest Ref Range: 30 - 400 ng/mL 32 Iron Latest Ref Range: 30 - 150 mcg/dL 57 TIBC Latest Ref Range: 250 - 450 mcg/dL 282 Iron Saturation Latest Ref Range: 20 - 50 % 20 CRP High Sens Latest Units: mg/L 0.9 documented in this encounter Plan of Treatment Upcoming Encounters Date Type Department Care Team (Late st Contact Info) Description 07/21/2024 1:00 PM EDT [place] [address] Isaiah Mcpherson MD [facility] [place] [address] documented as of this encounter Procedures Procedure Name Priority Date/Time Associated Diagnosis Comments HEMOGRAM Routine 05/09/2016 1:00 PM EDT High risk medication use DIFFERENTIAL, AUTOMATED Routine 05/09/2016 1:00 PM EDT High risk medication use IRON AND TIBC Routine 05/09/2016 1:00 PM EDT High risk medication use CBC (WITH DIFF) Routine 05/09/2016 1:00 PM EDT High risk medication use CRP, CARDIAC RISK (HS CRP) Routine 05/09/2016 1:00 PM EDT Rheumatoid arthritis(714.0) FERRITIN Routine 05/09/2016 1:00 PM EDT High risk medication use COMPREHENSIVE METABOLIC PANEL Routine 05/09/2016 1:00 PM EDT High risk medication use documented in this encounter Results * Differential, Automated (05/09/2016 1:00 PM EDT) Neutrophil % 60.8 % [facility] Neutrophil Absolute 3.47 1.50 - 6.30 x10(3)/[facility] Lymph % 30.3 % [facility] Lymphocytes Abs 1.7 1.0 - 3.6 x10(3)/[facility] Monocyte % 6.1 % [facility] Monocyte Abs 0.4 0.2 - 1.0 x10(3)/[facility] Eos % 2.1 % [facility] Eosinophils Abs 0.1 0.0 - 0.5 x10(3)/[facility] Basophil % 0.5 % [facility] Baso Absolute 0.0 0.0 - 0.2 x10(3)/[facility] Immature Gran % 0.20 % [facility] Comment: Immature granulocytes(IG's)percentage and absolute count will include metamyelocytes, myelocytes, and promyelocytes. Blood smears from CBCs yielding IG's will be scanned manually for concordance. If this scan disagrees with the automated IG or if promyelocytes are noted, a manual differential will be performed. Immature Gran Absolute 0.01 0.00 - 0.05 x10(3)/[facility] Blood specimen (specimen) 05/09/2016 1:00 PM EDT 05/09/2016 1:15 PM EDT Narrative Resulting Agency Comment Spec In Lab Isaiah Mcpherson MD HEMATOLOGY ORDERA BLES [facility] [place] [address] * (ABNORMAL) Hemogram (05/09/2016 1:00 PM EDT) White Blood Cell 5.7 4.0 - 10.0 x10(3)/mc L [facility] Red Blood Cell 4.05 3.93 - 5.22 x10(6)/mc L [facility] Hemoglobin 13.1 11.2 - 15.7 gm/dL [facility] Hematocrit 38.7 34.0 - 45.0 % [facility] Mean Cell Volume 95.6(H) 79.0 - 94.[address] [facility] Mean Cell Hemoglobin 32.3(H) 26.6 - 32.[address] [facility] Mean Cell Hemoglobin Concentration 33.9 32.0 - 36.5 gm/dL [facility] Platelet 282 145 - 370 x10(3)/[facility] RDW Standard Deviation 45.8 35.0 - 46.[address] [facility] RDW coefficient of variation 13.2 10.9 - 14.4 % [facility] Mean Platelet Volume 10.2 9.0 - 12.[address] [facility] Blood specimen (specimen) 05/09/2016 1:00 PM EDT 05/09/2016 1:15 PM EDT Narrative Resulting Agency Comment Spec In Lab Isaiah Mcpherson MD HEMATOLOGY ORDERA BLES [facility] [place] [address] * High Sensitivity CRP (05/09/2016 1:00 PM EDT) C-Reactive Protein High Sensitivity 0.9 mg/L [facility] Comment: Interpretations: 1) For accurate cardiac [...] prevention. ??Circulation 2003; [phone]:[id number] Blood specimen (specimen) 05/09/2016 1:00 PM EDT 05/09/2016 1:09 PM EDT Narrative Resulting Agency Comment Spec In Lab Isaiah Mcpherson MD CHEMISTRY ORDERAB LES Performing Organization Address [facility] Co de Phone Number [facility] [place] [address] * Ferritin (05/09/2016 1:00 PM EDT) Ferritin 32 30 - 400 ng/mL [facility] Comment: Pediatric reference ranges not verified at [facility], interpret with caution. Reference ranges for females greater than 50 years of age approach values for men, i.e., 30-400 ng/mL. Blood specimen (specimen) 05/09/2016 1:00 PM EDT 05/09/2016 1:09 PM EDT Narrative Resulting Agency Comment Spec In Lab Isaiah Mcpherson MD CHEMISTRY ORDERAB LES Performing Organization Address [facility]/ZIP Co de Phone Number [facility] [place] [address] * Iron and TIBC (05/09/2016 1:00 PM EDT) Iron 57 30 - 150 mcg/dL [facility] TIBC 282 250 - 450 mcg/dL [facility] Iron Saturation 20 20 - 50 % [facility] Blood specimen (specimen) 05/09/2016 1:00 PM EDT 05/09/2016 1:09 PM EDT Narrative Resulting Agency Comment Spec In Lab Isaiah Mcpherson MD CHEMISTRY ORDERAB LES [facility] [place] [address] * (ABNORMAL) Comprehensive metabolic panel (non-fasting) (05/09/2016 1:00 PM EDT) Glucose 88 65 - 199 mg/dL [facility] Comment:Diabetes: >=200 mg/d L plus symptoms Blood Urea Nitrogen 7(L) 8 - 18 mg/dL [facility] Creatinine 0.76 0.70 - 1.20 mg/dL [facility] Comment: Please note that the pediatric reference intervals supplied above were not validated at [facility]. Results from pediatric patients should be interpreted in conjunction to the patient's age, height and muscle mass. Sodium 141 135 - 145 mmol/L [facility] Potassium 4.3 3.5 - 5.0 mmol/L [facility] Comment: Please note: ??Patients with WBC >100,000 may have falsely elevated Potassium levels. ??For accurate Potassium quantification in these patients send serum separator tube (gold top) for subsequent determinations. ??Contact the Clinical Chemistry Laboratory if there are any questions. Chloride 102 98 - 107 mmol/L [facility] Carbon Dioxide 27 22 - 31 mmol/L [facility] Anion Gap 12 5 - 15 mmol/L [facility] Calcium 9.1 8.5 - 10.5 mg/dL [facility] Protein, Total 7.0 6.1 - 8.0 gm/dL [facility] Albumin 4.1 3.2 - 5.2 gm/dL [facility] Aspartate Aminotransferase 14 0 - 30 unit/L [facility] Alanine Aminotransferase 9 0 - 30 unit/L [facility] Alkaline Phosphatase 49 40 - 104 unit/L [facility] Bilirubin, Total 0.3 0.2 - 1.3 mg/dL [facility] Bilirubin, Direct 0.1 0.0 - 0.3 mg/dL [facility] Est Glomerular Filtration Rate >60 >=60 [facility] Comment: This estimated GFR [...] the following links into your internet browser. [email or web address] Blood specimen (specimen) 05/09/2016 1:00 PM EDT 05/09/2016 1:09 PM EDT Narrative Resulting Agency Comment Spec In Lab Isaiah Mcpherson MD CHEMISTRY ORDERAB LES [facility] [place] [id number] documented in this encounter Visit Diagnoses Diagnosis Primary osteoarthritis of both hips Primary localized osteoarthrosis, pelvic region and thigh Pain in right hip Pain in joint, pelvic region and thigh High risk medication use Encounter for long-term (current) use of other medications Iron deficiency anemia due to chronic blood loss Iron deficiency anemia secondary to blood loss (chronic) Fibromyalgia Mylagia and myositis, unspecified Rheumatoid arthritis(714.0) Rheumatoid arthritis documented in this encounter Care Teams Ldr Rn Relationship Specialty Start Date End Date Jennifer Anaya APRN [facility] [place] [address] PCP - General 08/17/11 01/03/17 documented as of this encounter
--- OUTSIDE RECORDS SUMMARY | 2024-06-19 00:22 | XMS_ITS | Encounter Summary ---
Author Organization [facility] [place] [address] Care Team Providers Care Stacking Machine Operator Name Role Phone Jennifer Anaya Erlinda HINOJOSA Primary Care Provider +1- [phone] Reason for Visit * Reason Onset Date Comments Other 08/26/2013 prednisone Encounter Details Date Type Department Care Team (Late st Contact Info) Description 08/26/2013 [place] [phone] Maribel Escalante RN Other (prednisone) Social History Tobacco Use Types Packs/Day Years Used Date Smoking Tobacco: Former Sex and Gender Information Value Date Recorded Sex Assigned at Not on file Gender Identity Not on file Sexual Orientation Not on file documented as of this encounter Miscellaneous Notes * Telephone Encounter - Maribel Escalante RN - 08/27/2013 12:38 PM EDT 1 mg a week, no faster. We don't want the eye inflammation to come back. Tell her to let us know ifshe thinks it is coming back. Thanks, CB Called Crystal and let her know Dr. Mcpherson does not want her to taper any faster than 1 mg weekly. Explained that she needs to call right away if she feels the eye inflammation is coming back. Told heran rx for 1 mg prednisone tablets would be sent to her pharmacy. She verbalized understanding of all information. * Telephone Encounter - Maribel Escalante RN - 08/26/2013 3:55 PM EDT Crystal called asking about tapering her prednisone. She says she is feeling great. She had eye examrecently and no recurrence of uveitis. Told her Dr. Mcpherson recommendation was to taper in 1 mg decrements, so she would go to 9 mg daily. She is not happy with this idea, she was hoping to go down to 5 mg daily for a couple days, then off. Told her I will check with Dr. Mcpherson, she asked if that is not possible if he can give her a full tapering schedule so she knows how many days she will have to be on it. She is looking for a short taper. documented in this encounter Plan of Treatment Upcoming Encounters Date Type Department Care Team (Late st Contact Info) Description 07/21/2024 1:00 PM EDT Office [place] [address] Isaiah Mcpherson MD [facility] [place] [address] documented as of this encounter Visit Diagnoses Not on filedocumented in this encounter Care Teams Stacking Machine Operator Relationship Specialty Start Date End [place] [address] PCP - General 08/17/11 01/03/17 documented as of this encounter
--- OUTSIDE RECORDS SUMMARY | 2024-06-19 00:22 | XMS_ITS | Encounter Summary ---
[facility] [place] [address] Care Team Providers Care Sole Leveling Machine Operator Name Role Phone Jennifer Anaya Erlinda HINOJOSA Primary Care Provider +1- [phone] Reason for Visit * Reason Onset Date Comments Prior Authorization 11/23/2013 VOLTAREN GEL - Encounter Details Date Type Department Care Team (Late st Contact Info) Description 11/23/2013 Telephone [place] [phone] Angélica Baker Prior Authorization (VOLTAREN GEL-) Social History Tobacco Use Types Packs/Day Years Used Date Smoking Tobacco: Former Sex and Gender Information Value Date Recorded Sex Assigned at Not on file Gender Identity Not on file Sexual Orientation Not on file documented as of this encounter Miscellaneous Notes * Telephone Encounter - Angélica Baker - 11/23/2013 10:31 AM EST Medication Prior Authorization ISAIAH REDMOND MD Medication name/dose/directions: VOLTAREN GEL 1%/ Apply 2 g topically 4 times daily Rationale for request: RA; ENTHESOPATHY OF HIP REGION; OSTEOARTHRITIS Health plan: ROSIE Authorizing dental sales representative name: Faxed to health plan on: 11-20-2013 Health plan decision: Approved Quantity approved: WRITTEN Authorization number: Start date: 11-20-2013 End date: 11-21-2013 Patient notified? yes Pharmacy notified? yes documented in this encounter Plan of Treatment Upcoming Encounters Date Type Department Care Team (Late st Contact Info) Description 07/21/2024 1:00 PM EDT Office Visit [place] [address] Isaiah Redmond MD [facility] [place] [address] documented as of this encounter Visit Diagnoses Not on filedocumented in this encounter Care Teams Sole Leveling Machine Operator Relationship Specialty Start Date [place] [address] PCP - General 08/17/11 01/03/17 documented as of this encounter
--- OUTSIDE RECORDS SUMMARY | 2024-06-19 00:22 | XMS_ITS | Encounter Summary ---
Author Organization [facility] [place] [address] Care Team Providers Care International Marketing Coordinator Name Role Phone Héctor Jennifer Coffey APRN Primary Care Provider +1- [phone] Reason for Referral * Diagnostic Test (Routine) - Closed Specialty Diagnoses / Procedures Referred By Chris bryant Referred To Contact Radiology Diagnoses Rheumatoid arthritis(714.0) Pain in right hip Primary osteoarthritis of both hips Procedures MRI Pelvis WO Contrast MRI Hip Right WO Contrast Isaiah Mcpherson MD [facility] [address] [place] [address] [place] [address] Referral ID Status Reason Start Date Expiration Date V isits Requested Visits Authorized [id number] Closed Specialty Service Requested 11/21/2015 02/19/2016 1 1 Encounter Details Date Type Department Care Team ([facility] Contact Info) Description 11/15/2015 Orders [place] [address] Isaiah Mcpherson MD [facility] [address] [place] [address] Rheumatoid arthritis; Pain in right hip; Primary osteoarthritis of both hips Social History Tobacco Use Types Packs/Day Years Used Date Smoking Tobacco: Former Sex and Gender Information Value Date Recorded Sex Assigned at Not on file Gender Identity Not on file Sexual Orientation Not on file documented as of this encounter Plan of Treatment Upcoming Encounters Date Type Department Care Team (Late st Contact Info) Description 07/21/2024 1:00 PM EDT Office Visit Rheumatology at [facility] [place] [address] Isaiah Mcpherson MD [facility] [address] documented as of this encounter Results * MRI Pelvis WO Contrast (11/22/2015 6:56 PM EST) Anatomical Region Laterality Modality Pelvis Magnetic Resonan ce Impressions 11/23/2015 8:15 AM EST IMPRESSION: 1. No MR evidence of avascular necrosis, synovitis, or erosive change. 2. Mild bilateral femoral acetabular joint osteoarthropathy with slight fraying of the left anterior superior labrum. The possibility of a nondisplaced labral tear cannot be entirely excluded. If there is continued clinical concern for labral tear, MR arthrography may be performed for further evaluation. 3. Mild right proximal measuring tendinosis and mild bilateral greater trochanteric bursitis. Narrative 11/23/2015 8:15 AM EST EXAMINATION: MRI PELVIS WO CONTRAST CLINICAL HISTORY: Underlying RA , seemingly in good control, with persistent pain both hips, R>>L. X-rays show mild OA. ? synovitis, labral tear, AVN, etc. COMPARISON: Pelvic radiography dated 11/09/2015. TECHNIQUE: Noncontrast MRI of the pelvis was performed. FINDINGS: There is mild to moderate degenerative change within the lower lumbar spine with endplate edema and multilevel disc desiccation. Minimal spurring is also seen within the synovial portions of the sacroiliac joints bilaterally consistent with mild degenerative change. There is mild degenerative change within the left femoral acetabular joint with subchondral cystic change within the humeral head, best seen on series 3, image 19. Some subchondral marrow edema is also seen along the left lateral acetabulum. There is slight fraying of the anterior superior labrum, best seen on series 3, image 17. No left joint effusion or synovitis is seen. No acute fracture or avascular necrosis is identified. About the right hip, minimal subchondral marrow edema seen along the right lateral acetabulum consistent with minimal degenerative change. No subchondral cystic change seen. No marrow contusion or avascular necrosis identified. No sizable joint effusion or synovitis identified. The labrum appears essentially normal on this nonarthrographic study. There is mild bilateral greater trochanteric soft tissue edema which can be seen in the setting of mild greater trochanteric bursitis. Mild right proximal hamstring tendinosis is seen, series 4, image 39. The remainder the visualized tendon origins and insertions are normal without tear or tenosynovitis. Muscular bulk is preserved. No inguinal lymphadenopathy is seen. Vascular flow voids are maintained. Incidental note is made of multiple intramural fibroids as well as nabothian cysts. Visualized bowel is normal. Procedure Note Vladimir Juarez MD - 11/23/2015 EXAMINATION: MRI PELVIS WO CONTRAST CLINICAL HISTORY: Underlying RA , seemingly in good control, withpersistent pain both hips, R>>L. X-rays show mild OA. ? synovitis, labral tear, AVN,etc. COMPARISON: Pelvic radiography dated 11/09/2015. TECHNIQUE: Noncontrast MRI of the pelvis was performed. FINDINGS: There is mild to moderate degenerative change within the lower lumbarspine with endplate edema and multilevel disc desiccation. Minimal spurring is alsoseen within the synovial portions of the sacroiliac joints bilaterallyconsistent with mild degenerative change. There is mild degenerative change within the left femoral acetabular jointwith subchondral cystic change within the humeral head, best seen on series 3,image 19. Some subchondral marrow edema is also seen along the left lateral acetabulum. There is slight fraying of the anterior superior labrum, bestseen on series 3, image 17. No left joint effusion or synovitis is seen. Noacute fracture or avascular necrosis is identified. About the right hip, minimal subchondral marrow edema seen along theright lateral acetabulum consistent with minimal degenerative change. Nosubchondral cystic change seen. No marrow contusion or avascular necrosis identified.No sizable joint effusion or synovitis identified. The labrum appearsessentially normal on this nonarthrographic study. There is mild bilateral greater trochanteric soft tissue edema which canbe seen in the setting of mild greater trochanteric bursitis. Mild rightproximal hamstring tendinosis is seen, series 4, image 39. The remainder thevisualized tendon origins and insertions are normal without tear or tenosynovitis. Muscular bulk is preserved. No inguinal lymphadenopathy is seen. Vascularflow voids are maintained. Incidental note is made of multiple intramuralfibroids as well as nabothian cysts. Visualized bowel is normal. IMPRESSION IMPRESSION: 1. No MR evidence of avascular necrosis, synovitis, or erosive change. 2. Mild bilateral femoral acetabular joint osteoarthropathy with slightfraying of the left anterior superior labrum. The possibility of a nondisplacedlabral tear cannot be entirely excluded. If there is continued clinical concernfor labral tear, MR arthrography may be performed for further evaluation. 3. Mild right proximal measuring tendinosis and mild bilateral greater trochanteric bursitis. Isaiah Mcpherson MD IMG MRI ORDERABLE S documented in this encounter Visit Diagnoses Diagnosis Rheumatoid arthritis Pain in right hip Pain in joint, pelvic region and thigh Primary osteoarthritis of both hips Primary localized osteoarthrosis, pelvic region and thigh Rheumatoid arthritis Pain in right hip Pain in joint, pelvic region and thigh Primary osteoarthritis of both hips Primary localized osteoarthrosis, pelvic region and thigh documented in this encounter Care Teams International Marketing Coordinator Relationship Specialty Start Date End Date Jennifer Anaya APRN [facility] [place] [address] PCP - General 08/17/11 01/03/17 documented as of this encounter
--- OUTSIDE RECORDS SUMMARY | 2024-06-19 00:22 | XMS_ITS | Encounter Summary ---
Author Organization [facility] [place] [address] Care Team Providers Care Machine Cage Maker Name Role Phone Jennifer Anaya APRN Primary Care Provider +1- [phone] Reason for Visit * Reason Comments Medication Refill Encounter Details Date Type Department Care Team (Late st Contact Info) Description 04/26/2014 Refill Rheumatology [place] [address] Isaiah Mcpherson MD [facility] [place] [address] Social History Tobacco Use Types Packs/Day Years Used Date Smoking Tobacco: Former Sex and Gender Information Value Date Recorded Sex Assigned at Not on file Gender Identity Not on file Sexual Orientation Not on file documented as of this encounter Plan of Treatment Upcoming Encounters Date Type Department Care Team (Late st Contact Info) Description 07/21/2024 1:00 PM EDT Office Visit Rheumatology [place] [address] Isaiah Mcpherson MD [facility] [place] [address] documented as of this encounter Visit Diagnoses Not on filedocumented in this encounter Care Teams Machine Cage Maker Relationship Specialty Start Date End Date Jennifer Anaya [place] [address] [place] [address] PCP - General 08/17/11 01/03/17 documented as of this encounter
--- OUTSIDE RECORDS SUMMARY | 2024-06-19 00:22 | XMS_ITS | Encounter Summary ---
Author Organization Formerly [facility], [facility] Address [facility] [place] [address] Care Team Providers Care Press Clippings Cutter And Paster Name Role Phone Héctor Jennifer Coffey APRN Primary Care Provider +1- [phone] Encounter Details Date Type Department Care Team (Late st Contact Info) Description 11/09/2015 1:05 PM EST - 11/09/2015 11:59 PM EST Hospital Encounter XRay at [address] [place] [address] Isaiah Mcpherson MD [facility] [place] [address] Enthesopathy of hip region, unspecified laterality; Rheumatoid arthritis; Bilateral hip pain Discharge Disposition: Home Social History Tobacco Use Types Packs/Day Years Used Date Smoking Tobacco: Former Sex and Gender Information Value Date Recorded Sex Assigned at Not on file Gender Identity Not on file Sexual Orientation Not on file documented as of this encounter Medications at Time of Discharge Medication Sig Dispensed Refills Start Date End Date folic acid (FOLVITE) 1 mg Tablet Take 1 tablet by mouth daily. 90 tablet 3 09/29/2015 11/06/2016 methotrexate 2.5 mg TabletIndications:R heumatoid arthritis(714.0) Take 8 tablets by mouth once a week. Can take without regard to food. Call clinic before/prior to starting medication/script. 104 tablet 1 06/17/2015 01/05/2016 busPIRone (BUSPAR) 10 mg Tablet Take 10 mg by mouth nightly. Reported on 03/05/2017 03/05/2017 Adalimumab (HUMIRA PEN) 40 mg/0.8 mL Pen Injector Kit Inject 0.8 mLs subcutaneously every 14 days. 3 kit 3 12/23/2014 01/10/2016 sertraline (ZOLOFT) 100 mg Tablet Take 1 tablet by mouth daily. 90 tablet 3 11/08/2014 02/02/2016 documented as of this encounter Plan of Treatment Upcoming Encounters Date Type Department Care Team (Late st Contact Info) Description 07/21/2024 1:00 PM EDT Office Visit [place] [address] Isaiah Mcpherson MD [facility] [place] [address] documented as of this encounter Procedures Procedure Name Priority Date/Time Associated Diagnosis Comments XR PELVIS AP AND 2 VIEWS BOTH HIPS Routine 11/09/2015 1:20 PM EST Enthesopathy of hip region, unspecified laterality Rheumatoid arthritis Bilateral hip pain documented in this encounter Results * XR Pelvis AP And 2 Views Both Hips (11/09/2015 1:20 PM EST) Anatomical Region Laterality Modality Pelvis, Hip N/A Digital Radiogra phy Impressions 11/09/2015 1:54 PM EST IMPRESSION: Mild right greater than left chronic appearing/degenerative change of the bilateral hips without erosions, or acute osseous abnormalities appreciated. Narrative 11/09/2015 1:54 PM EST EXAMINATION: XR PELVIS AP AND 2 VIEWS BOTH HIPS/BILAT CLINICAL HISTORY: Underlying RA, well-controlled. Increasing bilat hip pain, exam shows mainly troch bursitis. OA hips or SI joints? TECHNIQUE: AP pelvis, frontal and frog-leg bilateral hips, 5 views. COMPARISON: None FINDINGS: Sacroiliac joints with mild symmetric degenerative change, pubic ring is intact. Femoral acetabular joints appear symmetric. Mild osteophytes, right greater than left with mild joint space loss of the femoral acetabular joints. Mineralization and alignment are within normal limits. No fracture lucencies, no periosteal reaction. No erosions are identified. Procedure Note Shawn Olea MD - 11/09/2015 EXAMINATION: XR PELVIS AP AND 2 VIEWS BOTH HIPS/BILAT CLINICAL HISTORY: Underlying RA, well-controlled. Increasing bilat hippain, exam shows mainly troch bursitis. OA hips or SI joints? TECHNIQUE: AP pelvis, frontal and frog-leg bilateral hips, 5 views. COMPARISON: None FINDINGS: Sacroiliac joints with mild symmetric degenerative change, pubic ring isintact. Femoral acetabular joints appear symmetric. Mild osteophytes, rightgreater than left with mild joint space loss of the femoral acetabular joints.Mineralization and alignment are within normal limits. No fracture lucencies, noperiosteal reaction. No erosions are identified. IMPRESSION IMPRESSION: Mild right greater than left chronic appearing/degenerative change ofthe bilateral hips without erosions, or acute osseous abnormalitiesappreciated. Isaiah Mcpherson MD IMG DX ORDERABLES documented in this encounter Visit Diagnoses Diagnosis Enthesopathy of hip region, unspecified laterality Rheumatoid arthritis Bilateral hip pain Pain in joint, pelvic region and thigh documented in this encounter Care Teams Press Clippings Cutter And Paster Relationship Specialty Start Date [place] [address] PCP - General 08/17/11 01/03/17 documented as of this encounter
--- OUTSIDE RECORDS SUMMARY | 2024-06-19 00:22 | XMS_ITS | Encounter Summary ---
Author Organization [facility] [place] [address] Care Team Providers Care Drawer In Hand Name Role Phone Jennifer Anaya APRN Primary Care Provider +1- [phone] Reason for Visit * Reason Comments Medication Refill Encounter Details Date Type Department Care Team (Late st Contact Info) Description 09/28/2015 [place] [address] Isaiah Mcpherson MD [facility] [place] [address] Social History Tobacco Use Types Packs/Day Years Used Date Smoking Tobacco: Former Sex and Gender Information Value Date Recorded Sex Assigned at Not on file Gender Identity Not on file Sexual Orientation Not on file documented as of this encounter Plan of Treatment Upcoming Encounters Date Type Department Care Team (Late st Contact Info) Description 07/21/2024 1:00 PM EDT Office [place] [address] Isaiah Mcpherson MD [facility] [place] [address] documented as of this encounter Visit Diagnoses Not on filedocumented in this encounter Care Teams Drawer In Hand Relationship Specialty Start Date End Date Jennifer [place] [address] [place] [address] PCP - General 08/17/11 01/03/17 documented as of this encounter
--- OUTSIDE RECORDS SUMMARY | 2024-06-19 00:22 | XMS_ITS | Encounter Summary ---
Author Organization [facility] [place] [address] Care Team Providers Care Windows System Admin Name Role Phone Jennifer Anaya APRN Primary Care Provider +1- [phone] Reason for Visit * Reason Onset Date Comments Medication Refill 08/27/2013 Encounter Details Date Type Department Care Team (Late st Contact Info) Description 08/27/2013 Refill [place] [address] Isaiah Mcpherson MD [facility] [place] [address] Social History Tobacco Use Types Packs/Day Years [...] PM EDT Office Visit [place] [address] Isaiah Mcpherson MD [facility] [place] [address] documented as of this encounter Visit Diagnoses Not on filedocumented in this encounter Care Teams Windows System Admin Relationship Specialty Start Date End Date Jennifer [place] [address] [place] [address] PCP - General 08/17/11 01/03/17 documented as of this encounter
--- OUTSIDE RECORDS SUMMARY | 2024-06-19 00:22 | XMS_ITS | Encounter Summary ---
Author Organization [facility] [place] [address] Care Team Providers Care Hammerer Helper Name Role Phone Jennifer Anaya APRN Primary Care Provider +1- [phone] Reason for Visit * Reason Onset Date Comments Medication Refill 06/16/2015 Encounter Details Date Type Department Care Team (Late st Contact Info) Description 06/16/2015 Ref[place] [address] Jayden Johnson MD [facility] [place] [address] Rheumatoid arthritis Social History Tobacco Use Types Packs/Day Years Used Date Smoking Tobacco: Former Sex and Gender Information Value Date Recorded Sex Assigned at Not on file Gender Identity Not on file Sexual Orientation Not on file documented as of this encounter Plan of Treatment Upcoming Encounters Date Type Department Care Team (Late st Contact Info) Description 07/21/2024 1:00 PM EDT Office [place] [address] Isaiah Mcpherson MD [facility] [place] [address] documented as of this encounter Visit Diagnoses Diagnosis Rheumatoid arthritis documented in this encounter Care Teams Hammerer Helper Relationship Specialty Start Date End Date Jennifer Anaya [place] [address] PCP - General 08/17/11 01/03/17 documented as of this encounter
--- OUTSIDE RECORDS SUMMARY | 2024-06-19 00:22 | XMS_ITS | Encounter Summary ---
Author Organization [facility] [place] [address] Care Team Providers Care Churn Driller Name Role Phone Jennifer Anaya APRN Primary Care Provider +1- [phone] Reason for Visit * Reason Onset Date Comments Medication Refill 10/15/2013 Encounter Details Date Type Department Care Team (Late st Contact Info) Description 10/15/2013 Ref[place] [phone] Isaiah Mcpherson MD [facility] [place] [address] RA (rheumatoid arthritis) (Primary Dx) Social History Tobacco Use Types [...] 1:00 PM EDT Office [place] [phone] Isaiah Mcpherson MD [facility] [place] [address] documented as of this encounter Visit Diagnoses Diagnosis RA (rheumatoid arthritis)- Primary Rheumatoid arthritis documented in this encounter Care Teams Churn Driller Relationship Specialty Start Date End Date Jennifer Anaya [place] [address] [place] [address] PCP - General 08/17/11 01/03/17 documented as of this encounter
--- OUTSIDE RECORDS SUMMARY | 2024-06-19 00:22 | XMS_ITS | Encounter Summary ---
[place] [address] Care Team Providers Care Child Care Worker Name Role Phone Jennifer Anaya Erlinda HINOJOSA Primary Care Provider +1- [phone] Reason for Visit * Reason Onset Date Comments Prior Authorization 07/27/2015 humira-appro rose Encounter Details Date Type Department Care Team (Late st Contact Info) Description 07/27/2015 Telephone [place] [phone] Angélica Baker Prior Authorization (humira-approved) Social History Tobacco Use Types Packs/Day Years Used Date Smoking Tobacco: Former Sex and Gender Information Value Date Recorded Sex Assigned at Not on file Gender Identity Not on file Sexual Orientation Not on file documented as of this encounter Miscellaneous Notes * Telephone Encounter - Angélica Baker - 07/27/2015 9:52 AM EDT Medication Prior Authorization Isaiah Mcpherson MD Medication name/dose/directions: Adalimumab (HUMIRA PEN) 40 mg/0.8 mL Pen Injector Kit/Inject 0.8 mLs subcutaneously every 14 days Rationale for request: RA Health plan: [place] Medicaid Authorizing sales donor recruitment representative name: Faxed to health plan on: 07/25/15 Health plan decision: Approved Quantity approved: As written Authorization number: [id number] Start date: 07/26/15 End date: 07/26/16 Patient notified? yes Pharmacy notified? yes documented in this encounter Plan of Treatment Upcoming Encounters Date Type Department Care Team (Late st Contact Info) Description 07/21/2024 1:00 PM EDT Office [place] [address] Isaiah Mcpherson MD [facility] [place] [address] documented as of this encounter Visit Diagnoses Not on filedocumented in this encounter Care Teams Child Care Worker Relationship Specialty Start Date [place] [address] PCP - General 08/17/11 01/03/17 documented as of this encounter
--- OUTSIDE RECORDS SUMMARY | 2024-06-19 00:22 | XMS_ITS | Encounter Summary ---
Author Organization [facility] [place] [address] Care Team Providers Care Signal Repairer Name Role Phone Jennifer Anaya APRN Primary Care Provider +1- [phone] Reason for Referral * Diagnostic Test (Routine) - Closed Specialty Diagnoses / Procedures Referred By Contac t Referred To Contact Radiology Diagnoses Rheumatoid arthritis(714.0) Pain in right hip Primary osteoarthritis of both hips Procedures MRI Pelvis WO Contrast MRI Hip Right WO Contrast Isaiah Mcpherson MD [facility] [place] [place] [address] [place] [address] Referral ID Status Reason Start Date Expiration Date V isits Requested Visits Authorized [id number] Closed Specialty Service Requested 11/21/2015 02/19/2016 1 1 Reason for Visit * Diagnostic Test (Routine) - Closed Specialty Diagnoses / Procedures Referred By Chris bryant Referred To Contact Radiology Diagnoses Rheumatoid arthritis(714.0) Pain in right hip Primary osteoarthritis of both hips Procedures MRI Pelvis WO Contrast MRI Hip Right WO Contrast Isaiah Mcpherson MD [facility] [place] [address] [place] [address] Referral ID Status Reason Start Date Expiration Date V isits Requested Visits Authorized [id number] Closed Specialty Service Requested 11/21/2015 02/19/2016 1 1 Encounter Details Date Type Department Care Team (Late st Contact Info) Description 11/22/2015 5:36 PM EST - 11/22/2015 11:59 PM EST Hospital [place] [address] Isaiah Mcpherson MD [facility] [place] [address] Rheumatoid arthritis; Pain in right hip; Primary osteoarthritis of both hips Discharge Disposition: Home Social History Tobacco Use [...] 1:00 PM EDT Office [place] [address] Isaiah Mcpherson MD [facility] [place] [address] documented as of this encounter Procedures Procedure Name Priority Date/Time Associated Diagnosis Comments MRI PELVIS SOFT TISSUE (GI PRINT CONTROLLER) WO CONTRAST Routine 11/22/2015 6:56 PM EST Rheumatoid arthritis Pain in right hip Primary osteoarthritis of both hips documented in this encounter Results * MRI Pelvis WO [...] thigh documented in this encounter Care Teams Signal Repairer Relationship Specialty Start Date [place] [address] PCP - General 08/17/11 01/03/17 documented as of this encounter
--- OUTSIDE RECORDS SUMMARY | 2024-06-19 00:22 | XMS_ITS | Encounter Summary ---
Author Organization [facility] [place] [address] Care Team Providers Care Winder Operator Name Role Phone Jennifer Anaya APRN Primary Care Provider +1- [phone] Reason for Visit * Reason Onset Date Comments Medication Refill 01/05/2016 Encounter Details Date Type Department Care Team (Late st Contact Info) Description 01/05/2016 Refill [place] [address] Isaiah Mcpherson MD [facility] [place] [address] [place] [address] Rheumatoid arthritis Social History Tobacco Use Types [...] PM EDT Office Visit [place] [address] Isaiah Mcpherson MD [facility] [place] [address] [place] [address] documented as of this encounter Visit Diagnoses Diagnosis Rheumatoid arthritis documented in this encounter Care Teams Winder Operator Relationship Specialty Start Date End Date Jennifer [place] [address] [place] [address] PCP - General 08/17/11 01/03/17 documented as of this encounter
--- OUTSIDE RECORDS SUMMARY | 2024-06-19 00:22 | XMS_ITS | Encounter Summary ---
Author Organization [facility] [place] [address] Care Team Providers Care Oss Architect Name Role Phone Héctor Jennifer Coffey APRN Primary Care Provider +1- [phone] Reason for Visit * Reason Comments Follow-up Encounter Details Date Type Department Care Team (Late st Contact Info) Description 11/19/2013 1:45 PM EST [place] [address] Isaiah Mcpherson MD [facility] [place] [address] Iron deficiency anemia due to chronic blood loss; Rheumatoid arthritis(714.0); Fibromyalgia; Enthesopathy of hip region; Osteoarthrosis, unspecified whether generalized or localized, lower leg Discharge Disposition: Home Social History Tobacco Use Types Packs/Day Years Used Date Smoking Tobacco: Former Sex and Gender Information Value Date Recorded Sex Assigned at Not on file Gender Identity Not on file Sexual Orientation Not on file documented as of this encounter Last Filed Vital Signs Vital Sign Reading Time Taken Comments Blood Pressure 112/60 11/19/2013 1:55 PM EST Pulse 59 11/19/2013 1:55 PM EST Temperature - - Respiratory Rate 16 11/19/2013 1:55 PM EST Oxygen Saturation - - Inhaled Oxygen Concentration - - Weight 71.2 kg (157 lb) 11/19/2013 1:55 PM EST Height - - Body Mass Index 28.72 08/13/2013 1:52 PM EDT documented in this encounter Patient Instructions * Patient Instructions* Isaiah Mcpherson MD - 11/19/2013 2:49 PM EST Get labs today. Call or myDH for results. Try Voltaren gel on hips and other painful areas. Do exercises for hips from handout. Follow up in 6 months. Call if problems. documented in this encounter Progress Notes * Isaiah Mcpherson MD - 11/19/2013 6:07 PM EST Rheumatology Clinic: Dr. 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 This occurred despite being on methotrexate and Humira. It did not respond well at first to Pred Forte drops, but did to prednisone. She now reports that she's taperedoff prednisone completely for some time now without a return of uveitis. On her last visit, she complained of increasing anxiety and we had her increase her Zoloft. She reports that that has helped. She has been having pain in her hips and wrists. In terms of the hip, she gestures to the trochanteric bursa area. She's also having a pain that begins in the buttocks and radiates down the leg into her calves. She gets this towards the end of the day after standing on a hard floor. 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 Her wrists also hurt with activity. A more chronicpain is her knees, especially going up and down stairs. The right knee is worse than the left. She does not have significant morning stiffness. She continues to complain of fatigue. She takes her iron only intermittently. She also complains of some dyspnea on exertion. But in general, she is doing fairly well. Patient Active Problem List Diagnosis Code ??? Rheumatoid arthritis 714.0 ??? Fibromyalgia 729.1 ??? Depression 311 ??? Iron deficiency anemia due to chronic blood loss 280.0 ??? Sleep disturbance 780.50 ??? Uveitis 364.3 ??? Anxiety 300.00 ??? Enthesopathy of hip region 726.5 Current Outpatient Prescriptions on File Prior to Visit Medication Sig Dispense Refill ??? Adalimumab (HUMIRA PEN) 40 mg/0.8 mL PnKt Inject 0.8 mLs subcutaneously every 14 days. 3 kit 3 ??? sertraline (ZOLOFT) 100 mg tablet Take 1 tablet by mouth daily. 90 tablet 3 ??? ferrous sulfate (IRON) 325 mg (65 mg iron) tablet Take 1 tablet by mouth daily. 90 tablet 3 ??? folic acid (FOLVITE) 1 mg tablet TAKE ONE TABLET BY MOUTH EVERY DAY 90 tablet 3 ??? methotrexate 2.5 mg tablet Take 8 tablets by mouth once a week. Can take without regard to food. 104 tablet 1 ??? traZODone (DESYREL) 50 mg tablet TAKE ONE TO TWO TABLETS BY MOUTH EVERY EVENING 60 tablet 5 ??? [DISCONTINUED] predniSONE (DELTASONE) 1 mg tablet Take by mouth 4 tablets x 7 days, then 3 tablets x 7 days, then 2 tablets x 7 days, then 1 tablet x 7 days 70 tablet 1 ??? [DISCONTINUED] predniSONE (DELTASONE) 10 mg tablet Take 10 mg by mouth daily. ??? [DISCONTINUED] UNABLE TO FIND Med Name: Prednisone eye drops and 1 other pt unable to remember name Physical Exam: She looks well. Blood pressure 112/60, pulse 59, resp. rate 16, weight 71.215 kg (157 lb). Skin: Clear. HEENT: Unremarkable. Lungs: Clear. Heart: Regular rhythm and rate without murmur, gallop, or rub. Abdomen: Benign. No masses, tenderness, or organomegaly. Extremities: No edema. Good distal pulses. Musculoskeletal: She has no synovitis in her hands. Her wrists move well, but ROM is slightly painful. There is no synovitis. Her elbows and shoulders move well. Her hips move well. She has trochanteric bursitis bilaterally. Her knees have crepitance on range of motion, worse on the right. Her ankles are fine. Distal feet show DJD without synovitis. Neuro: Grossly intact. Assessment: I think she's doing very well. I am not finding any evidence of synovitis. She's havingmechanical pain in her wrists and legs. She has early osteoarthritis of the knees. Finally, she hasbilateral trochanteric bursitis. She's not enthusiastic about physical therapy, so we gave her handout on trochanteric bursitis that includes some exercises she can do on her own at home. We also prescribed Voltaren gel to apply to her hips and other painful areas. She's not currently on an anti-inflammatory. We'll check blood work today. We gave the patient the following specific instructions: 1. Get labs today. 2. Call or myDH for results. 3. Try Voltaren gel on hips and other painful areas. 4. Do exercises for hips from handout. 5. Follow up in 6 months. 6. Call if problems. Over 20 minutes of the 25 minute follow-up were spent discussing these problems and their treatmentoptions in [id number] counseling. Orders Placed This Encounter Procedures ??? CBC (with Diff) ??? Comprehensive metabolic panel (non-fasting) ??? Sedimentation rate ??? High Sensitivity CRP ??? Iron and TIBC ??? Ferritin ??? Differential, Automated Visit Diagnoses: 1. Iron deficiency anemia due to chronic blood loss Iron and TIBC, Ferritin, Iron and TIBC, Ferritin 2. Rheumatoid arthritis CBC (with Diff), Comprehensive metabolic panel (non- fasting), Sedimentationrate, High Sensitivity CRP, diclofenac (VOLTAREN) 1 % Gel topical gel, CBC (with Diff), Comprehensive metabolic panel (non-fasting), Sedimentation rate, High Sensitivity CRP 3. Fibromyalgia 4. Enthesopathy of hip region diclofenac (VOLTAREN) 1 % Gel topical gel 5. Osteoarthrosis, unspecified whether generalized or localized, lower leg diclofenac (VOLTAREN) 1 % Gel topical gel Results for CRYSTAL EDMONDS ( ) Ref. Range 11/19/2013 15:01 WBC Latest Range: 4.0-10.0 x10(3)/mcL 4.6 RBC Latest Range: 3.93-5.22 x10(6)/mcL 4.06 Hemoglobin Latest Range: 11.2-15.7 gm/dL 13.1 Hematocrit Latest Range: 34.0-45.0 % 39.6 MCV Latest Range: 79.0-94.0 fL 97.5 (H) MCH Latest Range: 26.6-32.2 pg 32.3 (H) MCHC Latest Range: 32.0-36.5 gm/dL 33.1 RDWSD Latest Range: 35.0-46.0 fL 45.9 RDWCV Latest Range: 10.9-14.4 % 13.0 Platelets Latest Range: 145-370 x10(3)/mcL 314 MPV Latest Range: 9.0-12.0 fL 9.8 Neutr Abs (ANC) Latest Range: 1.50-6.30 x10(3)/mcL 2.39 Neutrophils % Latest Range: 34.0-71.0 % 51.5 Immature Gran % Latest Range: 0.00-0.66 % 0.20 Lymphocytes % Latest Range: 19.0-53.0 % 33.1 Monocytes % Latest Range: 4.0-13.0 % 12.0 Eosinophils % Latest Range: 0.0-7.0 % 2.6 Basophils % Latest Range: 0.0-2.0 % 0.6 Abbie Gran Abs Latest Range: 0.00-0.05 x10(3)/mcL 0.01 Lymphocytes Abs Latest Range: 1.0-3.6 x10(3)/mcL 1.5 Monocyte Abs Latest Range: 0.2-1.0 x10(3)/mcL 0.6 Eosinophils Abs Latest Range: 0.0-0.5 x10(3)/mcL 0.1 Basophils Abs Latest Range: 0.0-0.2 x10(3)/mcL 0.0 Sed Rate Latest Range: 0-20 mm/hr 8 Sodium Latest Range: 135-145 mmol/L 139 Potassium Latest Range: 3.5-5.0 mmol/L 4.3 Chloride Latest Range: 98-107 mmol/L 102 CO2 Latest Range: 22-31 mmol/L 29 Anion Gap Latest Range: 5-15 mmol/L 8 BUN Latest Range: 8-18 mg/dL 10 Creatinine Latest Range: 0.70-1.20 mg/dL 0.78 Estimated GFR Latest Range: >=60 >60 Glucose Lvl Latest Range: 60-199 mg/dL 88 Calcium Latest Range: 8.5-10.5 mg/dL 9.5 Total Protein Latest Range: 6.4-8.3 gm/dL 7.1 Albumin Latest Range: 3.2-5.2 gm/dL 4.5 Total Bilirubin Latest Range: 0.2-1.3 mg/dL 0.3 Bili, Direct Latest Range: 0.0-0.3 mg/dL 0.1 Alk Phos Latest Range: 40-104 unit/L 48 AST Latest Range: 0-30 unit/L 18 ALT Latest Range: 0-30 unit/L 11 Ferritin Latest Range: 15-150 ng/mL 28 Iron Latest Range: 30-150 mcg/dL 84 TIBC Latest Range: 250-450 mcg/dL 325 Iron Saturation Latest Range: 20-50 % 26 CRP High Sens No range found 0.9 documented in this encounter Plan of Treatment Upcoming Encounters Date Type Department Care Team (Late st Contact Info) Description 07/21/2024 1:00 PM EDT Office Visit Rheumatology at [facility] [place] [address] Isaiah Mcpherson MD [facility] [place] [address] documented as of this encounter Procedures Procedure Name Priority Date/Time Associated Diagnosis Comments DIFFERENTIAL, AUTOMATED Routine 11/19/2013 3:01 PM EST IRON AND TIBC Routine 11/19/2013 3:01 PM EST Iron deficiency anemia due to chronic blood loss SEDIMENTATION RATE Routine 11/19/2013 3: 01 PM EST Rheumatoid arthritis(714.0) CBC (WITH DIFF) Routine 11/19/2013 3:01 PM EST Rheumatoid arthritis(714.0) CRP, CARDIAC RISK (HS CRP) Routine 11/19/2013 3:01 PM EST Rheumatoid arthritis(714.0) FERRITIN Routine 11/19/2013 3:01 PM EST Iron deficiency anemia due to chronic blood loss COMPREHENSIVE METABOLIC PANEL Routine 11/19/2013 3:01 PM EST Rheumatoid arthritis(714.0) documented in this encounter Results * Differential, Automated (11/19/2013 3:01 PM EST) Neutrophil % 51.5 34.0 - 71.0 % CERNER MILLENNIUM Neutrophil Absolute 2.39 1.50 - 6.30 x10(3)/mcL CERNER MILLENNIUM Lymph % 33.1 19.0 - 53.0 % CERNER MILLENNIUM Lymphocytes Abs 1.5 1.0 - 3.6 x10(3)/mcL CERNER MILLENNIUM Monocyte % 12.0 4.0 - 13.0 % CERNER MILLENNIUM Monocyte Abs 0.6 0.2 - 1.0 x10(3)/mcL CERNER MILLENNIUM Eos % 2.6 0.0 - 7.0 % CERNER MILLENNIUM Eosinophils Abs 0.1 0.0 - 0.5 x10(3)/mcL CERNER MILLENNIUM Basophil % 0.6 0.0 - 2.0 % CERNER MILLENNIUM Baso Absolute 0.0 0.0 - 0.2 x10(3)/mcL CERNER MILLENNIUM Immature Gran % 0.20 0.00 - 0.66 % CERNER MILLENNIUM Comment: Immature granulocytes(IG's)percentage and absolute count will include metamyelocytes, myelocytes, and promyelocytes. Blood smears from CBCs yielding IG's will be scanned manually for concordance. If this scan disagrees with the automated IG or if promyelocytes are noted, a manual differential will be performed. Immature Gran Absolute 0.01 0.00 - 0.05 x10(3)/mcL CERNER MILLENNIUM Blood specimen (specimen) 11/19/2013 3:01 PM EST 11/19/2013 3:17 PM EST Isaiah Mcpherson MD HEMATOLOGY ORDERA BLES [facility]ERY[facility] LAYENNIUM * Ferritin (11/19/2013 3:01 PM EST) [facility] Ferritin 28 15 - 150 ng/mL CERNER MILLENNIUM Comment: Pediatric reference ranges not verified at [facility], interpret with caution. Reference ranges for females greater than 50 years of age approach values for men, i.e., 30-400 ng/mL. Blood specimen (specimen) 11/19/2013 3:01 PM EST 11/19/2013 3:17 PM EST Narrative Resulting Agency Comment Spec In Lab Isaiah Mcpherson MD CHEMISTRY ORDERAB LES [facility] * Iron and TIBC (11/19/2013 3:01 PM EST) Iron 84 30 - 150 mcg/dL [facility] TIBC 325 250 - 450 mcg/dL [facility] Iron Saturation 26 20 - 50 % CERN ER MILLENNIUM Blood specimen (specimen) 11/19/2013 3:01 PM EST 11/19/2013 3:17 PM EST Narrative Resulting Agency Comment Spec In Lab Isaiah Mcpherson MD CHEMISTRY ORDERAB LES Performing Organization Address [facility] Co de Phone Number [facility] * High Sensitivity CRP (11/19/2013 3:01 PM EST) C-Reactive Protein High Sensitivity 0.9 mg/L [facility] Comment: Interpretations: 1) For accurate cardiac [...] prevention. ??Circulation 2003; [phone] Blood specimen (specimen) 11/19/2013 3:01 PM EST 11/19/2013 3:17 PM EST Narrative Resulting Agency Comment Spec In Lab Isaiah Mcpherson MD CHEMISTRY ORDERAB LES CERNER MILLENNIUM * Sedimentation rate (11/19/2013 3:01 PM EST) Sedimentation Rate Automated 8 0 - 20 mm/hr CERNER MILLENNIUM Blood specimen (specimen) 11/19/2013 3:01 PM EST 11/19/2013 3:17 PM EST Narrative Resulting Agency Comment Spec In Lab Isaiah Mcpherson MD HEMATOLOGY ORDERA BLES Performing Organization Address [facility] Co de Phone Number CERNER MILLENNIUM * Comprehensive metabolic panel (non-fasting) (11/19/2013 3:01 PM EST) Pathologist [facility] Glucose 88 60 - 199 mg/dL CERNER MILLENNIUM Comment:Diabetes: >=200 mg/d L plus symptoms Blood Urea Nitrogen 10 8 - 18 mg/dL CERNER MILLENNIUM Creatinine 0.78 0.70 - 1.20 mg/dL CERNER MILLENNIUM Comment: Please note that the pediatric reference intervals supplied above were not validated at [facility]. Results from pediatric patients should be interpreted in conjunction to the patient's age, height and muscle mass. Sodium 139 135 - 145 mmol/L CERNER MILLENNIUM Potassium 4.3 3.5 - 5.0 mmol/L CERNER MILLENNIUM Comment: Please note: ??Patients with WBC >100,000 may have falsely elevated Potassium levels. ??For accurate Potassium quantification in these patients send serum separator tube (gold top) for subsequent determinations. ??Contact the Clinical Chemistry Laboratory if there are any questions. Chloride 102 98 - 107 mmol/L CERNER MILLENNIUM Carbon Dioxide 29 22 - 31 mmol/L CERNER MILLENNIUM Anion Gap 8 5 - 15 mmol/L CERNER MILLENNIUM Calcium 9.5 8.5 - 10.5 mg/dL CERNER MILLENNIUM Protein, Total 7.1 6.4 - 8.3 gm/dL CERNER MILLENNIUM Albumin 4.5 3.2 - 5.2 gm/dL CERNER MILLENNIUM Aspartate Aminotransferase 18 0 - 30 unit/L CERNER MILLENNIUM Alanine Aminotransferase 11 0 - 30 unit/L CERNER MILLENNIUM Alkaline Phosphatase 48 40 - 104 unit/L CERNER MILLENNIUM Bilirubin, [...] the following links into your internet browser. http://www.nkdep.nih.gov/lab-evaluation.shtml http://www.kidney.org/professionals/ Blood specimen (specimen) 11/19/2013 3:01 PM EST 11/19/2013 3:17 PM EST Narrative Resulting Agency Comment Spec In Lab Isaiah Mcpherson MD CHEMISTRY ORDERAB LES [facility]ILL[facility] * (ABNORMAL) CBC (with Diff) (11/19/2013 3:01 PM EST) White Blood Cell 4.6 4.0 - 10.0 x10(3)/mc L CERNER MILLENNIUM Red Blood Cell 4.06 3.93 - 5.22 x10(6)/mc L CERNER MILLENNIUM Hemoglobin 13.1 11.2 - 15.7 gm/dL CERNER MILLENNIUM Hematocrit 39.6 34.0 - 45.0 % CERNER MILLENNIUM Mean Cell Volume 97.5(H) 79.0 - 94.0 fL CERNER MILLENNIUM Mean Cell Hemoglobin 32.3(H) 26.6 - 32.2 pg CERNER MILLENNIUM Mean Cell Hemoglobin Concentration 33.1 32.0 - 36.5 gm/dL CERNER MILLENNIUM Platelet 314 145 - 370 x10(3)/mc L CERNER MILLENNIUM RDW Standard Deviation 45.9 35.0 - 46.0 fL CERNER MILLENNIUM RDW coefficient of variation 13.0 10.9 - 14.4 % MARBELLA GREENIUM Mean Platelet Volume 9.8 9.0 - 12.0 fL MARBELLA GREENIUM Blood specimen (specimen) 11/19/2013 3:01 PM EST 11/19/2013 3:17 PM EST Narrative Resulting Agency Comment Spec In Lab Isaiah Mcpherson MD HEMATOLOGY ORDERA BLES MARBELLA STRONG documented in this encounter Visit Diagnoses Diagnosis Iron deficiency anemia due to chronic blood loss Iron deficiency anemia secondary to blood loss (chronic) Rheumatoid arthritis(714.0) Rheumatoid arthritis Fibromyalgia Mylagia and myositis, unspecified Enthesopathy of hip region Osteoarthrosis, unspecified whether generalized or localized, lower leg documented in this encounter Care Teams Oss Architect Relationship Specialty Start Date End Date Jennifer Anaya APRN [facility] [place] [address] PCP - General 08/17/11 01/03/17 documented as of this encounter
--- OUTSIDE RECORDS SUMMARY | 2024-06-19 00:22 | XMS_ITS | Encounter Summary ---
Author Organization [facility] [place] [address] Care Team Providers Care Salvage Mechanic Name Role Phone Jennifer Anaya APRN Primary Care Provider +1- [phone] Reason for Visit * Reason Comments Medication Refill Encounter Details Date Type Department Care Team (Late st Contact Info) Description 02/18/2014 [place] [address] Isaiah Mcpherson MD [facility] [place] [address] [place] [address] Social History Tobacco Use Types Packs/Day Years Used Date Smoking Tobacco: Former Sex and Gender Information Value Date Recorded Sex Assigned at Not on file Gender Identity Not on file Sexual Orientation Not on file documented as of this encounter Plan of Treatment Upcoming Encounters Date Type Department Care Team (Late st Contact Info) Description 07/21/2024 1:00 PM EDT Office [place] [address] Isaiah Mcpherson MD [facility] [place] [address] [place] [address] documented as of this encounter Visit Diagnoses Not on filedocumented in this encounter Care Teams Salvage Mechanic Relationship Specialty Start Date End Date Jennifer An[place] [address] [place] [address] PCP - General 08/17/11 01/03/17 documented as of this encounter
--- OUTSIDE RECORDS SUMMARY | 2024-06-19 00:22 | XMS_ITS | Encounter Summary ---
Author Organization [facility] [place] [address] Care Team Providers Care Motorcycle Sales Associate Name Role Phone Jennifer Anaya APRN Primary Care Provider [phone]- [phone] Reason for Visit * Reason Onset Date Comments Medication Refill 04/28/2014 Encounter Details Date Type Department Care Team (Late st Contact Info) Description 04/28/2014 [place] [address] Isaiah Mcpherson MD [facility] [place] [address] [place] [address] RA (rheumatoid arthritis) (Primary Dx) Social History [...] 1:00 PM EDT Office [place] [address] Isaiah Mcpherson MD [facility] [place] [address] documented as of this encounter Visit Diagnoses Diagnosis RA (rheumatoid arthritis)- Primary Rheumatoid arthritis documented in this encounter Care Teams Motorcycle Sales Associate Relationship Specialty Start Date End Date Jennifer [place] [address] [place] [address] PCP - General 08/17/11 01/03/17 documented as of this encounter
--- OUTSIDE RECORDS SUMMARY | 2024-06-19 00:22 | XMS_ITS | Encounter Summary ---
Author Organization [facility] [place] [place] [address] Care Team Providers Care Refinery Operator Helper Name Role Phone Jennifer Anaya APRN Primary Care Provider [phone]- [phone] Encounter Details Date Type Department Care Team (Late st Contact Info) Description 11/17/2015 Orders [place] [address] Isaiah Mcpherson MD [facility] [place] [address] [place] [address] Social History Tobacco Use Types Packs/Day Years Used Date Smoking Tobacco: Former Sex and Gender Information Value Date Recorded Sex Assigned at Not on file Gender Identity Not on file Sexual Orientation Not on file documented as of this encounter Plan of Treatment Upcoming Encounters Date Type Department Care Team (Late st Contact Info) Description 07/21/2024 1:00 PM EDT Office [place] [address] Isaiah Mcpherson MD [facility] [place] [address] [place] [address] documented as of this encounter Visit Diagnoses Not on filedocumented in this encounter Care Teams Refinery Operator Helper Relationship Specialty Start Date End Date Jennifer [place] [address] [place] [address] PCP - General 08/17/11 01/03/17 documented as of this encounter
--- OUTSIDE RECORDS SUMMARY | 2024-06-19 00:22 | XMS_ITS | Encounter Summary ---
Author Organization [facility] [place] [address] Care Team Providers Care Fabrication Supervisor Name Role Phone Mikayla Aquino MD Primary Care Provider [phone] Reason for Visit * Reason Comments Medication Refill Encounter Details Date Type Department Care Team (Late st Contact Info) Description 06/15/2015 [place] [address] Isaiah Mcpherson MD [facility] [place] [address] Social History Tobacco Use Types Packs/Day Years Used Date Smoking Tobacco: Former Sex and Gender Information Value Date Recorded Sex Assigned at Not on file Gender Identity Not on file Sexual Orientation Not on file documented as of this encounter Plan of Treatment Upcoming Encounters Date Type Department Care Team (Late st Contact Info) Description 07/21/2024 1:00 PM EDT Office [place] [address] Isaiah Mcpherson MD [facility] [place] [address] documented as of this encounter Goals Goal Patient Goal Type Associated Problems Recent Progress Patient-Stated? Author [facility] Medication Compliance and Understanding Patient Facing Action Plan Not on track( 024 11:36 AM EDT) No Mckinley Noel, [facility] Note: Reduce Joint damage and flairs, measured by number of office visits for flairs/ x-rays, follow up every 3-6 months documented as of this encounter Visit Diagnoses Not on filedocumented in this encounter Care Teams Fabrication Supervisor Relationship Specialty Start Date End Date Mikayla Aquino MD PCP - General Family Medicine 07/06/20 documented as of this encounter
--- OUTSIDE RECORDS SUMMARY | 2024-06-19 00:22 | XMS_ITS | Encounter Summary ---
Author Organization [facility] [place] [place] [address] Care Team Providers Care Land Inspector Name Role Phone Jennifer Anaya APRN Primary Care Provider [phone] Reason for Visit * Reason Comments Medication Refill Encounter Details Date Type Department Care Team (Late st Contact Info) Description 08/03/2016 [place] [address] Isaiah Mcpherson MD [facility] [place] [address] Rheumatoid arthritis Social History Tobacco Use Types [...] 1:00 PM EDT Office [place] [address] Isaiah Mcpherson MD [facility] [place] [address] documented as of this encounter Visit Diagnoses Diagnosis Rheumatoid arthritis documented in this encounter Care Teams Land Inspector Relationship Specialty Start Date End Date Jennifer [place] [address] [place] [address] PCP - General 08/17/11 01/03/17 documented as of this encounter
--- OUTSIDE RECORDS SUMMARY | 2024-06-19 00:22 | XMS_ITS | Encounter Summary ---
Author Organization [facility] [place] [address] Care Team Providers Care Elementary School Librarian Name Role Phone Jennifer Anaya APRN Primary Care Provider [phone]- [phone] Reason for Visit * Reason Comments Medication Refill Encounter Details Date Type Department Care Team (Late st Contact Info) Description 02/02/2016 [place] [address] Isaiah Mcpherson MD [facility] [place] [address] Social History Tobacco Use Types Packs/Day Years Used Date Smoking Tobacco: Former Sex and Gender Information Value Date Recorded Sex Assigned at Not on file Gender Identity Not on file Sexual Orientation Not on file documented as of this encounter Plan of Treatment Upcoming Encounters Date Type Department Care Team (Late st Contact Info) Description 07/21/2024 1:00 PM EDT Office [place] [address] Isaiah Mcpherson MD [facility] [place] [address] documented as of this encounter Visit Diagnoses Not on filedocumented in this encounter Care Teams Elementary School Librarian Relationship Specialty Start Date End Date Jennifer [place] [address] [place] [address] PCP - General 08/17/11 01/03/17 documented as of this encounter
--- OUTSIDE RECORDS SUMMARY | 2024-06-19 00:22 | XMS_ITS | Encounter Summary ---
Author Organization [facility] [place] [address] Care Team Providers Care Repairer And Checker Name Role Phone Jennifer Anaya APRN Primary Care Provider [phone]- [phone] Reason for Visit * Reason Comments Medication Refill Encounter Details Date Type Department Care Team (Late st Contact Info) Description 11/05/2014 [place] [address] Isaiah Mcpherson MD [facility] [place] [address] Social History Tobacco Use Types Packs/Day Years Used Date Smoking Tobacco: Former Sex and Gender Information Value Date Recorded Sex Assigned at Not on file Gender Identity Not on file Sexual Orientation Not on file documented as of this encounter Plan of Treatment Upcoming Encounters Date Type Department Care Team (Late st Contact Info) Description 07/21/2024 1:00 PM EDT [place] [address] Isaiah Mcpherson MD [facility] [place] [address] documented as of this encounter Visit Diagnoses Not on filedocumented in this encounter Care Teams Repairer And Checker Relationship Specialty Start Date End Date Jennifer [place] [address] [place] [address] PCP - General 08/17/11 01/03/17 documented as of this encounter
--- OUTSIDE RECORDS SUMMARY | 2024-06-19 00:22 | XMS_ITS | Encounter Summary ---
Author Organization [facility] [place] [address] Care Team Providers Care Firearms Assembly Supervisor Name Role Phone Mikayla Aquino MD Primary Care Provider [phone] Reason for Visit * Reason Comments Medication Refill Encounter Details Date Type Department Care Team (Late st Contact Info) Description 01/04/2016 [place] [address] Jayden Johnson MD [facility] [place] [address] Social History Tobacco Use Types Packs/Day Years [...] EDT Office [place] [address] Isaiah Mcpherson MD [facility] [place] [address] documented as of this encounter Goals Goal Patient Goal Type Associated Problems Recent Progress Patient-Stated? Author [facility] Medication Compliance and Understanding Patient Facing Action Plan Not on track( 024 11:36 AM EDT) No Mckinley Noel, [facility] Note: Reduce Joint damage and flairs, measured by number of office visits for flairs/ x-rays, follow up every 3-6 months documented as of this encounter Visit Diagnoses Not on filedocumented in this encounter Care Teams Firearms Assembly Supervisor Relationship Specialty Start Date End Date Mikayla Aquino MD PCP - General Family Medicine 07/06/20 documented as of this encounter
--- OUTSIDE RECORDS SUMMARY | 2024-06-19 00:22 | XMS_ITS | Encounter Summary ---
Author Organization [facility] [place] [address] Care Team Providers Care Hoop Riveting Machine Operator Name Role Phone Jennifer Anaya APRN Primary Care Provider [phone] Reason for Visit * Reason Onset Date Comments Medication Refill 01/10/2016 Encounter Details Date Type Department Care Team (Late st Contact Info) Description 01/10/2016 Ref[place] [address] Isaiah Mcpherson MD [facility] [place] [address] Social History Tobacco Use Types Packs/Day Years Used Date Smoking Tobacco: Former Sex and Gender Information Value Date Recorded Sex Assigned at Not on file Gender Identity Not on file Sexual Orientation Not on file documented as of this encounter Plan of Treatment Upcoming Encounters Date Type Department Care Team (Late st Contact Info) Description 07/21/2024 1:00 PM EDT Office [place] [address] Isaiah Mcpherson MD [facility] [place] [address] documented as of this encounter Visit Diagnoses Not on filedocumented in this encounter Care Teams Hoop Riveting Machine Operator Relationship Specialty Start Date End Date Jennifer [place] [address] [place] [address] PCP - General 08/17/11 01/03/17 documented as of this encounter
--- OUTSIDE RECORDS SUMMARY | 2024-06-19 00:22 | XMS_ITS | Encounter Summary ---
Author Organization [facility] [place] [address] Care Team Providers Care [employer] War[employer] Boat Operator Name Role Phone AnayaJennifer Erlinda HINOJOSA Primary Care Provider [phone] Encounter Details Date Type Department Care Team (Late st Contact Info) Description 11/09/2015 11:15 AM EST Office [place] [address] Isaiah Mcpherson MD [facility] [place] [address] Enthesopathy of hip region, unspecified laterality; Rheumatoid arthritis; Iron deficiency anemia due to chronic blood loss; Anxiety; Fibromyalgia; High risk medication use; Bilateral hip pain Social History Tobacco Use Types Packs/Day Years Used Date Smoking Tobacco: Former Sex and Gender Information Value Date Recorded Sex Assigned at Not on file Gender Identity Not on file Sexual Orientation Not on file documented as of this encounter Last Filed Vital Signs Vital Sign Reading Time Taken Comments Blood Pressure 124/74 11/09/2015 11:24 AM EST Pulse 52 11/09/2015 11:24 AM EST Temperature 36.4 ??C (97.5 ??F) 11/09/2015 11:[address] Respiratory Rate - - Oxygen Saturation 98% 11/09/2015 11:24 AM EST Inhaled Oxygen Concentration - - Weight 72.6 kg (160 lb) 11/09/2015 11:24 AM EST Height 157.5 cm (5' 2) 11/09/2015 11:24 AM EST Body Mass Index 29.26 11/09/2015 11:24 AM EST documented in this encounter Patient Instructions * Patient Instructions* Isaiah Mcpherson MD - 11/09/2015 12:28 PM EST Get labs and x-rays today. Call for results. Depending on what we find with the hips, we may need to change treatment or do further tests. Continue current regimen for now. Follow up in 6 months, or sooner depending on the hip results. Stay in touch. documented in this encounter Progress Notes * Isaiah Mcpherson MD - 11/12/2015 3:51 PM EST Rheumatology Clinic: Dr. Mcpherson 11/09/2015 [id number] Crystal Edmonds is seen in follow-up of her rheumatoid arthritis and soft tissue pain. The last timeshe was in, she had trochanteric bursitis and some costochondritis. We gave her some exercises to do for the trochanteric bursitis, but I'm not sure she really did those. She comes in today accompanied by her sister for support. She complained bitterly about her hip pain again. She now says that she still has the bruising pain in the lateral hip, but she has more pain in the anterolateral groinand also in the upper buttock. Her hip pain is still predominantly at night, still when she lies onone side or another. She cannot sleep on her back. But it does sound like the quality of the pain may have changed. It's certainly bothering her more now. Her sister seems to be here to reinforce that this needs to be looked into. She did not complain of the costochondritis pain today. She also didnot complain of any inflammatory arthritis symptoms. She does have fleeting pains in different areas and she mentioned her wrists and several others, but these are really transient and usually related to certain positions or certain activities. 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 Regan Moore up in [place]. That appears to have stabilized over the years and there may have been a componentof rheumatoid arthritis to that. Patient Active Problem List Diagnosis Code ??? Rheumatoid arthritis M06.9 ??? Fibromyalgia M79.7 ??? Depression F32.9 ??? Iron deficiency anemia due to chronic blood loss D50.0 ??? Sleep disturbance G47.9 ??? Uveitis H20.9 ??? Anxiety F41.9 ??? Enthesopathy of hip region M76.899 ??? Perimenopausal N95.1 ??? Myalgia and myositis M79.1, M60.9 ??? Costochondritis M94.0 ??? High risk medication use Z79.899 Medications 11/09/15 1127 Medication Sig Taking? folic acid (FOLVITE) 1 mg Tablet Take 1 tablet by mouth daily. Yes methotrexate 2.5 mg Tablet Take 8 tablets by mouth once a week. Can take without regard to food. Call clinic before/prior to starting medication/script. Yes busPIRone (BUSPAR) 10 mg Tablet Take 10 mg by mouth nightly. Yes Adalimumab (HUMIRA PEN) 40 mg/0.8 mL Pen Injector Kit Inject 0.8 mLs subcutaneously every 14 days. Yes sertraline (ZOLOFT) 100 mg Tablet Take 1 tablet by mouth daily. Yes Physical Exam: She looks well, but she is anxious. She is accompanied by her sister, who is very supportive. Blood pressure 124/74, pulse 52, temperature 36.4 ??C (97.5 ??F), temperature source Oral, height 157.5 cm (5' 2), weight 72.576 kg (160 lb), SpO2 98 %. Skin: Clear. HEENT: Unremarkable. Lungs: Clear. Heart: Regular rhythm and rate without murmur, gallop, or rub. Abdomen: Benign. No masses, tenderness, or organomegaly. Extremities: No edema. Good distal pulses. Musculoskeletal: She has absolutely no synovitis in her hands or wrists. She has minimal degenerative change. Her elbows and shoulders move well. Her hips actually move well. She does have some pain with forced external rotation, but she has difficulty localizing the pain. She still has tenderness over the trochanteric bursa bilaterally, but now she says that that does not reproduce the pain she's talking about completely. Her knees and ankles move well. Her distal feet show mild DJD without synovitis. Neuro: Grossly intact. Assessment: We had a very long discussion about her situation. The bottom line is I think we have to look into this hip pain, although her exam is unimpressive again today, and the only finding is trochanteric bursitis. We will start with labs and also obtain plain x-rays of both hips. I suspect yogesh does show up, it will be mild osteoarthritis, but am not even sure of that. Some of her pain seems to be coming from the right SI area, so perhaps she has some degenerative disease there. We'll see, but I have a feeling x-rays will be negative and at that point we'll probably move onto an MRI of her right hip, as that seems to be the more symptomatic one. In the meantime, we will not make any changes. She and her sister understood the plan. We gave the patient the following specific instructions: Patient Instructions Get labs and x-rays today. Call for results. Depending on what we find with the hips, we may need to change treatment or do further tests. Continue current regimen for now. Follow up in 6 months, or sooner depending on the hip results. Stay in touch. Over 30 minutes of the 40 minute followup were spent discussing these problems and their treatment options in [id number] counseling. Orders Placed This Encounter Procedures ??? XR Pelvis AP And 2 Views Both Hips ??? CBC (with Diff) ??? Comprehensive metabolic panel (non-fasting) ??? Sedimentation rate ??? High Sensitivity CRP ??? Hemogram ??? Differential, Automated Visit Diagnoses: 1. Enthesopathy of hip region, unspecified laterality XR Pelvis AP And 2 Views Both Hips 2. Rheumatoid arthritis CBC (with Diff) Comprehensive metabolic panel (non-fasting) Sedimentation rate High Sensitivity CRP XR Pelvis AP And 2 Views Both Hips CBC (with Diff) Comprehensive metabolic panel (non-fasting) Sedimentation rate High Sensitivity CRP 3. Iron deficiency anemia due to chronic blood loss 4. Anxiety 5. Fibromyalgia 6. High risk medication use CBC (with Diff) Comprehensive metabolic panel (non-fasting) Sedimentation rate High Sensitivity CRP CBC (with Diff) Comprehensive metabolic panel (non-fasting) Sedimentation rate High Sensitivity CRP Hemogram Differential, Automated 7. Bilateral hip pain XR Pelvis AP And 2 Views Both Hips Results for CRYSTAL EDMONDS ( ) Ref. Range 11/09/2015 12:59 WBC Latest Ref Range: 4.0-10.0 x10(3)/mcL 4.4 RBC Latest Ref Range: 3.93-5.22 x10(6)/mcL 4.25 Hemoglobin Latest Ref Range: 11.2-15.7 gm/dL 14.0 Hematocrit Latest Ref Range: 34.0-45.0 % 40.4 MCV Latest Ref Range: 79.0-94.0 fL 95.1 (H) MCH Latest Ref Range: 26.6-32.2 pg 32.9 (H) MCHC Latest Ref Range: 32.0-36.5 gm/dL 34.7 RDWSD Latest Ref Range: 35.0-46.0 fL 48.0 (H) RDWCV Latest Ref Range: 10.9-14.4 % 14.0 Platelets Latest Ref Range: 145-370 x10(3)/mcL 290 MPV Latest Ref Range: 9.0-12.0 fL 10.1 Neutr Abs (ANC) Latest Ref Range: 1.50-6.30 x10(3)/mcL 2.42 Neutrophils % Latest Units: % 55.3 Immature Gran % Latest Units: % 0.20 Lymphocytes % Latest Units: % 30.1 Monocytes % Latest Units: % 11.6 Eosinophils % Latest Units: % 2.1 Basophils % Latest Units: % 0.7 Abbie Gran Abs Latest Ref Range: 0.00-0.05 x10(3)/mcL 0.01 Lymphocytes Abs Latest Ref Range: 1.0-3.6 x10(3)/mcL 1.3 Monocyte Abs Latest Ref Range: 0.2-1.0 x10(3)/mcL 0.5 Eosinophils Abs Latest Ref Range: 0.0-0.5 x10(3)/mcL 0.1 Basophils Abs Latest Ref Range: 0.0-0.2 x10(3)/mcL 0.0 Sed Rate Latest Ref Range: 0-20 mm/hr 10 Sodium Latest Ref Range: 135-145 mmol/L 139 Potassium Latest Ref Range: 3.5-5.0 mmol/L 4.3 Chloride Latest Ref Range: 98-107 mmol/L 100 CO2 Latest Ref Range: 22-31 mmol/L 29 Anion Gap Latest Ref Range: 5-15 mmol/L 10 BUN Latest Ref Range: 8-18 mg/dL 12 Creatinine Latest Ref Range: 0.70-1.20 mg/dL 0.76 Estimated GFR Latest Ref Range: >=60 >60 Glucose Lvl Latest Ref Range: 65-199 mg/dL 98 Calcium Latest Ref Range: 8.5-10.5 mg/dL 9.6 Total Protein Latest Ref Range: 6.1-8.0 gm/dL 7.6 Albumin Latest Ref Range: 3.2-5.2 gm/dL 4.6 Total Bilirubin Latest Ref Range: 0.2-1.3 mg/dL 0.4 Bili, Direct Latest Ref Range: 0.0-0.3 mg/dL 0.1 Alk Phos Latest Ref Range: 40-104 unit/L 54 AST Latest Ref Range: 0-30 unit/L 20 ALT Latest Ref Range: 0-30 unit/L 15 CRP High Sens Latest Units: mg/L 1.3 Radiology: [facility] EXAMINATION: XR PELVIS AP AND 2 VIEWS BOTH HIPS/BILAT ?? CLINICAL HISTORY: Underlying RA, well-controlled. Increasing bilat hip pain, exam shows mainly troch bursitis. OA hips or SI joints? TECHNIQUE: AP pelvis, frontal and frog-leg bilateral hips, 5 views. ?? FINDINGS: ?? Sacroiliac joints with mild symmetric degenerative change, pubic ring is intact. Femoral acetabular joints appear symmetric. Mild osteophytes, right greater than left with mild joint space loss of the femoral acetabular joints. Mineralization and alignment are within normal limits. No fracture lucencies, no periosteal reaction. No erosions are identified. ?? IMPRESSION: ?? Mild right greater than left chronic appearing/degenerative change of the bilateral hips without erosions, or acute osseous abnormalities appreciated. documented in this encounter Plan of Treatment Upcoming Encounters Date Type Department Care Team (Late st Contact Info) Description 07/21/2024 1:00 PM EDT Office [place] [address] Isaiah Mcpherson MD [facility] [place] [address] documented as of this encounter Procedures Procedure Name Priority Date/Time Associated Diagnosis Comments HEMOGRAM Routine 11/09/2015 12:59 PM EST Rheumatoid arthritis(714.0) High risk medication use DIFFERENTIAL, AUTOMATED Routine 11/09/2015 12:59 PM EST Rheumatoid arthritis(714.0) High risk medication use SEDIMENTATION RATE Routine 11/09/2015 12 :59 PM EST Rheumatoid arthritis High risk medication use CBC (WITH DIFF) Routine 11/09/2015 12:59 PM EST Rheumatoid arthritis High risk medication use CRP, CARDIAC RISK (HS CRP) Routine 11/09/2015 12:59 PM EST Rheumatoid arthritis High risk medication use COMPREHENSIVE METABOLIC PANEL Routine 11/09/2015 12:59 PM EST Rheumatoid arthritis High risk medication use documented in this encounter Results * XR [...] abnormalitiesappreciated. Isaiah Mcpherson MD IMG DX ORDERABLES * Differential, Automated (11/09/2015 12:59 PM EST) Neutrophil % 55.3 % CERNER MILLENNIUM Neutrophil Absolute 2.42 1.50 - 6.30 x10(3)/mcL CERNER MILLENNIUM Lymph % 30.1 % CERNER MILLENNIUM Lymphocytes Abs 1.3 1.0 - 3.6 x10(3)/mcL CERNER MILLENNIUM Monocyte % 11.6 % CERNER MILLENNIUM Monocyte Abs 0.5 0.2 - 1.0 x10(3)/mcL CERNER MILLENNIUM Eos % 2.1 % CERNER MILLENNIUM Eosinophils Abs 0.1 0.0 - 0.5 x10(3)/mcL CERNER MILLENNIUM Basophil % 0.7 % CERNER MILLENNIUM Baso Absolute 0.0 0.0 - 0.2 x10(3)/mcL CERNER MILLENNIUM Immature Gran % 0.20 % CERN ER MILLENNIUM Comment: Immature granulocytes(IG's)percentage and absolute count will include metamyelocytes, myelocytes, and promyelocytes. Blood smears from CBCs yielding IG's will be scanned manually for concordance. If this scan disagrees with the automated IG or if promyelocytes are noted, a manual differential will be performed. Immature Gran Absolute 0.01 0.00 - 0.05 x10(3)/mcL CERNER MILLENNIUM Blood specimen (specimen) 11/09/2015 12:59 PM EST 11/09/2015 1:05 PM EST Narrative Resulting Agency Comment Spec In Lab Isaiah Mcpherson MD HEMATOLOGY ORDERA BLES CERNER MILLENNIUM * (ABNORMAL) Hemogram (11/09/2015 12:59 PM EST) Pathologist [facility] White Blood Cell 4.4 4.0 - 10.0 x10(3)/mc L CERNER MILLENNIUM Red Blood Cell 4.25 3.93 - 5.22 x10(6)/mc L CERNER MILLENNIUM Hemoglobin 14.0 11.2 - 15.7 gm/dL CERNER MILLENNIUM Hematocrit 40.4 34.0 - 45.0 % CERNER MILLENNIUM Mean Cell Volume 95.1(H) 79.0 - 94.0 fL CERNER MILLENNIUM Mean Cell Hemoglobin 32.9(H) 26.6 - 32.2 pg CERNER MILLENNIUM Mean Cell Hemoglobin Concentration 34.7 32.0 - 36.5 gm/dL CERNER MILLENNIUM Platelet 290 145 - 370 x10(3)/mc L CERNER MILLENNIUM RDW Standard Deviation 48.0(H) 35.0 - 46.0 fL CERNER MILLENNIUM RDW coefficient of variation 14.0 10.9 - 14.4 % CERNER MILLENNIUM Mean Platelet Volume 10.1 9.0 - 12.0 fL CERNER MILLENNIUM Blood specimen (specimen) 11/09/2015 12:59 PM EST 11/09/2015 1:05 PM EST Narrative Resulting Agency Comment Spec In Lab Isaiah Mcpherson MD HEMATOLOGY ORDERA [facility] Organization Address City/State/ZIP Co de Phone Number [facility] * High Sensitivity CRP (11/09/2015 12:59 PM EST) Pathologist [facility] C-Reactive Protein High Sensitivity 1.3 mg/L CERNER MILLENNIUM Comment: Interpretations: 1) For accurate cardiac risk [...] prevention. ??Circulation 2003; [phone] Blood specimen (specimen) 11/09/2015 12:59 PM EST 11/09/2015 1:05 PM EST Narrative Resulting Agency Comment Spec In Lab Isaiah Mcpherson MD CHEMISTRY ORDERAB LES Performing Organization Address [facility] Co de Phone Number [facility] * Sedimentation rate (11/09/2015 12:59 PM EST) Sedimentation Rate Automated 10 0 - 20 mm/hr [facility] Blood specimen (specimen) 11/09/2015 12:59 PM EST 11/09/2015 1:05 PM EST Narrative Resulting Agency Comment Spec In Lab Isaiah Mcpherson MD HEMATOLOGY ORDERA BLES Performing Organization Address [facility] Co de Phone Number [facility] * Comprehensive metabolic panel (non-fasting) (11/09/2015 12:59 PM EST) Glucose 98 65 - 199 mg/dL [facility] Comment:Diabetes: >=200 mg/d L plus symptoms Blood Urea Nitrogen 12 8 - 18 mg/dL CERNER MILLENNIUM Creatinine 0.76 0.70 - 1.20 mg/dL CERNER MILLENNIUM Comment: Please note that the pediatric reference intervals supplied above were not validated at [facility]. Results from pediatric patients should be interpreted [...] questions. Chloride 100 98 - 107 mmol/L CERNER MILLENNIUM Carbon Dioxide 29 22 - 31 mmol/L CERNER MILLENNIUM Anion Gap 10 5 - 15 mmol/L CERNER MILLENNIUM Calcium 9.6 8.5 - 10.5 mg/dL CERNER MILLENNIUM Protein, Total 7.6 6.1 - 8.0 gm/dL CERNER MILLENNIUM Albumin 4.6 3.2 - 5.2 gm/dL CERNER MILLENNIUM Aspartate Aminotransferase 20 0 - 30 unit/L CERNER MILLENNIUM Alanine Aminotransferase 15 0 - 30 unit/L CERNER MILLENNIUM Alkaline Phosphatase 54 40 - 104 unit/L CERNER MILLENNIUM Bilirubin, Total 0.4 0.2 - 1.3 mg/dL CERNER MILLENNIUM Bilirubin, [...] the following links into your internet browser. [email or web address] Blood specimen (specimen) 11/09/2015 12:59 PM EST 11/09/2015 1:05 PM EST Narrative Resulting Agency Comment Spec In Lab Isaiah Mcpherson MD CHEMISTRY ORDERAB LES [facility] documented in this encounter Visit Diagnoses Diagnosis Enthesopathy of hip region, unspecified laterality Rheumatoid arthritis Iron deficiency anemia due to chronic blood loss Iron deficiency anemia secondary to blood loss (chronic) Anxiety Anxiety state, unspecified Fibromyalgia Mylagia and myositis, unspecified High risk medication use Encounter for long-term (current) use of other medications Bilateral hip pain Pain in joint, pelvic region and thigh Enthesopathy of hip region, unspecified laterality Rheumatoid arthritis Bilateral hip pain Pain in joint, pelvic region and thigh documented in this encounter Care Teams Special Warfare Boat Operator Relationship Specialty Start Date End Date Jennifer Anaya, [place] [address] PCP - General 08/17/11 01/03/17 documented as of this encounter
--- OUTSIDE RECORDS SUMMARY | 2024-06-19 00:22 | XMS_ITS | Encounter Summary ---
Author Organization [facility] [place] [address] Care Team Providers Care Glazing Department Supervisor Name Role Phone Jennifer Anaya APRN Primary Care Provider +1- [phone] Reason for Visit * Reason Comments Rheumatoid Arthritis Encounter Details Date Type Department Care Team (Late st Contact Info) Description 08/13/2013 1:45 PM EDT [place] [address] Isaiah Mcpherson MD [facility] [place] [address] Uveitis; Rheumatoid arthritis; Depression; Iron deficiency anemia due to chronic blood loss; Anxiety; Fibromyalgia Discharge Disposition: Home Social History Tobacco Use Types Packs/Day Years Used Date Smoking Tobacco: Former Sex and Gender Information Value Date Recorded Sex Assigned at Not on file Gender Identity Not on file Sexual Orientation Not on file documented as of this encounter Last Filed Vital Signs Vital Sign Reading Time Taken Comments Blood Pressure 115/63 08/13/2013 1:52 PM EDT Pulse 55 08/13/2013 1:52 PM EDT Temperature 36.6 ??C (97.9 ??F) 08/13/2013 1:52 PM ED T Respiratory Rate - - Oxygen Saturation 100% 08/13/2013 1:52 PM EDT Inhaled Oxygen Concentration - - Weight 71.2 kg (157 lb) 08/13/2013 1:52 PM EDT Height 157.5 cm (5' 2) 08/13/2013 1:52 PM EDT Body Mass Index 28.72 08/13/2013 1:52 PM EDT documented in this encounter Patient Instructions * Patient Instructions* Isaiah Mcpherson MD - 08/13/2013 2:25 PM EDT Continue at 10 mg of prednisone a day. If the uveitis remains quiet, you can start tapering by 1 mg at a time in 3-4 weeks. Call us and let us know. If the uveitis acts up again, increase the prednisone to 20 mg a day and call us. Take the iron pill once a day (faxed in to [facility]). Take 100 mg of sertraline once a day (faxed in to [facility]) for anxiety. Follow up in 3 months. Stay in touch. documented in this encounter Progress Notes * Isaiah Mcpherson MD - 08/13/2013 2:32 PM EDT Rheumatology Clinic: Dr. Mcpherson 08/13/2013 [id number] Crystal Felder is seen in follow-up of her rheumatoid arthritis, fibromyalgia, and most recently uveitis. She seemed to be failing Pred Forte drops and we had her go on prednisone at 20 mg a day overthe phone. She had an exam just 2 days after that and she was still having uveitis. Therefore when we saw her on 07/24/2013, we bumped her to 60 mg a day. She subsequently saw her eye doctor, Dr. Hood, and the uveitis was gone. She was only on the 60 mg a day for a few days because she couldn't tolerate it. It made her confused and tired. She dropped from 60 to 20 mg a day, and then 2 days ago went down to 10 mg a day. Her eyes are fine. She has been having more joint pain in her ankles, knees,and wrists. She does feel better though, in general, having tapered the prednisone. We did ask her to increase the methotrexate from 17.5 to 20 mg a week and she's done that without any problems. She's been taking old iron pills she had around, 325 mg a day. Patient Active Problem List Diagnosis Code ??? Rheumatoid arthritis 714.0 ??? Fibromyalgia 729.1 ??? Depression 311 ??? Iron deficiency anemia due to chronic blood loss 280.0 ??? Sleep disturbance 780.50 ??? Uveitis 364.3 ??? Anxiety 300.00 Current Outpatient Prescriptions on File Prior to Visit Medication Sig Dispense Refill ??? folic acid (FOLVITE) 1 mg tablet TAKE ONE TABLET BY MOUTH EVERY DAY 90 tablet 3 ??? UNABLE TO FIND Med Name: Prednisone eye drops and 1 other pt unable to remember name ??? methotrexate 2.5 mg tablet Take 8 tablets by mouth once a week. Can take without regard to food. 104 tablet 1 ??? traZODone (DESYREL) 50 mg tablet TAKE ONE TO TWO TABLETS BY MOUTH EVERY EVENING 60 tablet 5 ??? Adalimumab (HUMIRA PEN) 40 mg/0.8 mL PnKt Inject 0.8 mLs subcutaneously every 14 days. 3 kit 3 ??? [DISCONTINUED] predniSONE (DELTASONE) 10 mg tablet Take 3 tablets by mouth 2 times daily. 180 tablet 1 Physical Exam: She looks well. Blood pressure 115/63, pulse 55, temperature 36.6 ??C (97.9 ??F), temperature source Oral, height 157.5 cm (5' 2), weight 71.215 kg (157 lb), SpO2 100.00%. Skin: Clear. HEENT: She is not light sensitive and her eyes are not obviously irritated today. Lungs: Clear. Heart: Regular rhythm and rate without murmur, gallop, or rub. Abdomen: Benign. No masses, tenderness, or organomegaly. Extremities: No edema. Good distal pulses. Musculoskeletal: There is no synovitis in her hands or wrists. Elbows and shoulders move well. Her hips move well. Her knees have mild crepitance. Her ankles are hypermobile, but otherwise fine. Distal feet show DJD without synovitis. Neuro: Grossly intact. Assessment: I think she's doing well. I think her increased joint pain is probably related to steroid withdrawal and ultimately more mechanical than inflammatory. 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 Towards the end of the visit, she brought up concerns about ongoing problems with anxiety. It turnsout she's only on 50 mg of Zoloft a day. We increased that to 100 mg a day. She'll continue on trazodone 50 mg at night. She'll also continue to take the iron daily. In terms of the uveitis, we told her to stick with a 10 mg a day of prednisone for another 2-3 weeks. If she has no return of the uveitis, we will start to taper by 1 mg decrements. If she has a flare of her uveitis, I told her to go back up to 20 mg a day and to let us know. Rather than going right to 60 mg a day, we will put her on the minimum dose that captures the uveitis. Then we will do a slower taper. She agreed to this plan I'll see her in followup in 3 months, but I asked her to stay in touch. Over 20 minutes of the 25 minute follow-up were spent discussing these problems and their treatmentoptions in [id number] counseling. Visit Diagnoses: 1. Uveitis 2. Rheumatoid arthritis 3. Depression sertraline (ZOLOFT) 100 mg tablet 4. Iron deficiency anemia due to chronic blood loss ferrous sulfate (IRON) 325 mg (65 mg iron) tablet 5. Anxiety sertraline (ZOLOFT) 100 mg tablet 6. Fibromyalgia sertraline (ZOLOFT) 100 mg tablet documented in this encounter Plan of Treatment Upcoming Encounters Date Type Department Care Team (Late st Contact Info) Description 07/21/2024 1:00 PM EDT Office [place] [address] Isaiah Mcpherson MD [facility] [place] [address] documented as of this encounter Visit Diagnoses Diagnosis Uveitis Unspecified iridocyclitis Rheumatoid arthritis(714.0) Rheumatoid arthritis Depression Depressive disorder, not elsewhere classified Iron deficiency anemia due to chronic blood loss Iron deficiency anemia secondary to blood loss (chronic) Anxiety Anxiety state, unspecified Fibromyalgia Mylagia and myositis, unspecified documented in this encounter Care Teams Glazing Department Supervisor Relationship Specialty Start Date End [place] [address] PCP - General 08/17/11 01/03/17 documented as of this encounter
--- OUTSIDE RECORDS SUMMARY | 2024-06-19 00:22 | XMS_ITS | Encounter Summary ---
Author Organization [facility] [place] [address] Care Team Providers Care Sales Promotion Representative Name Role Phone Jennifer Anaya APRN Primary Care Provider [phone]- [phone] Reason for Visit * Reason Comments Medication Refill Encounter Details Date Type Department Care Team (Late st Contact Info) Description 12/23/2014 [place] [address] Isaiah Mcpherson MD [facility] [place] [address] [place] [address] Social History Tobacco Use Types Packs/Day Years Used Date Smoking Tobacco: Former Sex and Gender Information Value Date Recorded Sex Assigned at Not on file Gender Identity Not on file Sexual Orientation Not on file documented as of this encounter Plan of Treatment Upcoming Encounters Date Type Department Care Team (Late st Contact Info) Description 07/21/2024 1:00 PM EDT Office [place] [address] Isaiah Mcpherson MD [facility] [place] [address] [place] [address] documented as of this encounter Visit Diagnoses Not on filedocumented in this encounter Care Teams Sales Promotion Representative Relationship Specialty Start Date End Date Jennifer [place] [address] [place] [address] PCP - General 08/17/11 01/03/17 documented as of this encounter
--- OUTSIDE RECORDS SUMMARY | 2024-06-19 00:22 | XMS_ITS | Encounter Summary ---
Author Organization [facility] [place] [address] Care Team Providers Care Bank Appraiser Name Role Phone Jennifer Anaya Erlinda HINOJOSA Primary Care Provider +1- [phone] Reason for Visit * Reason Onset Date Comments Other 07/28/2013 prednisone Encounter Details Date Type Department Care Team (Late st Contact Info) Description 07/28/2013 [place] [id number] Maribel Escalante RN Other (prednisone) Social History Tobacco Use Types Packs/Day Years Used Date Smoking Tobacco: Former Sex and Gender Information Value Date Recorded Sex Assigned at Not on file Gender Identity Not on file Sexual Orientation Not on file documented as of this encounter Miscellaneous Notes * Telephone Encounter - Maribel Escalante RN - 07/31/2013 3:39 PM EDT Called Crystal and asked her if she is seeing the eye doctor on Saturday. She said no, Dr. Hood does not plan to see her again until her regular eye exam. She says the eye drops have been tapered to every two hours, which Crystal says she takes, when she remembers. Told her Dr. Mcpherson said ok to takethe 20 mg once a day and call back on with an update. She verbalized understanding of instructions. * Telephone Encounter - Maribel Escalante RN - 07/31/2013 2:55 PM EDT Yes, reduce to 30 Mg in am and 25 mg in pm, and then to 25 mg bid on Saturday. Check back on Sat or next week. Thanks! CB Called Crystal and attempted to explain Dr. Mcpherson tapering instructions. Crystal said things have been so bad on the high dose of prednisone she tapered it herself. She has been experiencing extreme fatigue, tiredness and dizziness. She also was sweating excessively. So she decreased her prednisone to 20 mg daily starting today. She says she is feeling much better now. She saw eye doctor on Saturday, who says she does not have any signs of uveitis now. Told her I would let Dr. Mcpherson know and call her back with further instructions next week. She verbalized understanding. * Telephone Encounter - Maribel Escalante RN - 07/28/2013 4:10 PM EDT Crystal called and left message asking if prednisone she is on can be tapered. She says condition itis being used for seems to be clearing up. Attempted to reach her for further information, but had to leave message. documented in this encounter Plan of Treatment Upcoming Encounters Date Type Department Care Team (Late st Contact Info) Description 07/21/2024 1:00 PM EDT Office [place] [address] Isaiah Mcpherson MD [facility] [place] [address] [place] [address] documented as of this encounter Visit Diagnoses Not on filedocumented in this encounter Care Teams Bank Appraiser Relationship Specialty Start Date End Date [place] [address] PCP - General 08/17/11 01/03/17 documented as of this encounter
--- OUTSIDE RECORDS SUMMARY | 2024-06-19 00:22 | XMS_ITS | Encounter Summary ---
Author Organization [facility] [place] [address] Care Team Providers Care Beverage Inspection Machine Tender Name Role Phone Jennifer Anaya APRN Primary Care Provider +1- [phone] Reason for Visit * Reason Comments Medication Refill Encounter Details Date Type Department Care Team (Late st Contact Info) Description 07/29/2013 Refill [place] [address] Isaiah Mcpherson MD [facility] [place] [address] Social History Tobacco Use Types Packs/Day Years [...] PM EDT Office Visit [place] [address] Isaiah Mcpherson MD [facility] [place] [address] documented as of this encounter Visit Diagnoses Not on filedocumented in this encounter Care Teams Beverage Inspection Machine Tender Relationship Specialty Start Date End Date Jennifer [place] [address] [place] [address] PCP - General 08/17/11 01/03/17 documented as of this encounter
--- OUTSIDE RECORDS SUMMARY | 2024-06-19 00:22 | XMS_ITS | Encounter Summary ---
Author Organization [facility] [place] [address] Care Team Providers Care Regional Trainer Name Role Phone Jennifer Anaya APRN Primary Care Provider +1- [phone] Reason for Visit * Reason Comments Medication Refill Encounter Details Date Type Department Care Team (Late st Contact Info) Description 09/17/2014 [place] [address] Isaiah Mcpherson MD [facility] [place] [address] Social History Tobacco Use Types Packs/Day Years Used Date Smoking Tobacco: Former Sex and Gender Information Value Date Recorded Sex Assigned at Not on file Gender Identity Not on file Sexual Orientation Not on file documented as of this encounter Plan of Treatment Upcoming Encounters Date Type Department Care Team (Late st Contact Info) Description 07/21/2024 1:00 PM EDT Office [place] [address] Isaiah Mcpherson MD [facility] [place] [address] documented as of this encounter Visit Diagnoses Not on filedocumented in this encounter Care Teams Regional Trainer Relationship Specialty Start Date End Date Jennifer [place] [address] [place] [address] PCP - General 08/17/11 01/03/17 documented as of this encounter
--- OUTSIDE RECORDS SUMMARY | 2024-06-19 00:22 | XMS_ITS | Encounter Summary ---
[place] [address] Care Team Providers Care Merchandising Specialist Name Role Phone Jennifer Anaya Erlinda HINOJOSA Primary Care Provider +1- [phone] Reason for Visit * Reason Onset Date Comments Prior Authorization 07/08/2014 HUMIRA-APPRO JOHN Encounter Details Date Type Department Care Team (Late st Contact Info) Description 07/08/2014 Telephone [place] [address] Angélica Baker Prior Authorization (HUMIRA-APPROVED) Social History Tobacco Use Types Packs/Day Years Used Date Smoking Tobacco: Former Sex and Gender Information Value Date Recorded Sex Assigned at Not on file Gender Identity Not on file Sexual Orientation Not on file documented as of this encounter Miscellaneous Notes * Telephone Encounter - Angélica Baker - 07/08/2014 4:39 PM EDT Medication Prior Authorization ISAIAH REDMOND MD Medication name/dose/directions: Adalimumab (HUMIRA PEN) 40 mg/0.8 mL PnKt/Inject 0.8 mLs subcutaneously every 14 days Rationale for request: RA Health plan: ROSIE Authorizing sales representative malt liquors name: Faxed to health plan on: 07-06-14 Health plan decision: Approved Quantity approved: WRITTEN Authorization number: Start date: 07-07-2014 End date: 07-07-2015 Patient notified? yes Pharmacy notified? yes documented in this encounter Plan of Treatment Upcoming Encounters Date Type Department Care Team (Late st Contact Info) Description 07/21/2024 1:00 PM EDT Office Visit [place] [address] Isaiah Redmond MD [facility] [place] [address] documented as of this encounter Visit Diagnoses Not on filedocumented in this encounter Care Teams Merchandising Specialist Relationship Specialty Start Date [place] [address] PCP - General 08/17/11 01/03/17 documented as of this encounter
--- OUTSIDE RECORDS SUMMARY | 2024-06-19 00:22 | XMS_ITS | Encounter Summary ---
Author Organization Formerly [facility] [place] [address] Care Team Providers Care Comprehensive Advisor Name Role Phone Héctor Jennifer Coffey APRN Primary Care Provider [phone]- [phone] Reason for Visit * Reason Comments Follow-up Encounter Details Date Type Department Care Team (Late st Contact Info) Description 05/17/2015 11:15 AM EDT Follow-Up Rheumatology at [facility] [place] [address] Isaiah Mcpherson MD [facility] [place] [address] Rheumatoid arthritis; Fibromyalgia; Sleep disturbance; Enthesopathy of hip region, unspecified laterality; Costochondritis Discharge Disposition: Home Social History Tobacco Use Types Packs/Day Years Used Date Smoking Tobacco: Former Sex and Gender Information Value Date Recorded Sex Assigned at Not on file Gender Identity Not on file Sexual Orientation Not on file documented as of this encounter Last Filed Vital Signs Vital Sign Reading Time Taken Comments Blood Pressure 135/57 05/17/2015 11:03 AM EDT Pulse 62 05/17/2015 11:03 AM EDT Temperature 36.6 ??C (97.8 ??F) 05/17/2015 11:03 AM E DT Respiratory Rate - - Oxygen Saturation 100% 05/17/2015 11:03 AM EDT Inhaled Oxygen Concentration - - Weight 70.8 kg (156 lb) 05/17/2015 11:03 AM EDT Height 157.5 cm (5' 2) 05/17/2015 11:03 AM EDT Body Mass Index 28.53 05/17/2015 11:03 AM EDT documented in this encounter Patient Instructions * Patient Instructions* Isaiah Mcpherson MD - 05/17/2015 12:49 PM EDT Images from the original note were not included. You're doing well in terms of your RA. Continue current regimen. The hip pain represents trochanteric bursitis, Try exercises below. Your chest pain is costochondritis, which is painful but not dangerous. Try Tylenol for that. If not helpful, go back to Advil (ibuprofen). We'll track down labs from [facility]. If they did not get everything we need, we'll let you know. Follow up in 6 months. Call if problems. [facility] Trochanteric Bursitis: Exercises Your Care Instructions Here are some examples of typical rehabilitation exercises for your condition. Start each exercise slowly. Ease off the exercise if you start to have pain. Your doctor or physical therapist will tell you when you can start these exercises and which ones will work best for you. How to do the exercises Hamstring wall stretch 1. Lie on your back in a doorway, with your good leg through the open door. 2. Slide your affected leg up the wall to straighten your knee. You should feel a gentle stretch down the back of your leg. ?? Do not arch your back. ?? Do not bend either knee. ?? Keep one heel touching the floor and the other heel touching the wall. Do not point your toes. 3. Hold the stretch for at least 1 minute to begin. Then try to lengthen the time you hold the stretch to as long as 6 minutes. 4. Repeat 2 to 4 times. If you do not have a place to do this exercise in a doorway, there is another way to do it: 1. Lie on your back, and bend the knee of your affected leg. 2. Loop a towel under the ball and toes of that foot, and hold the ends of the towel in your hands. 3. Straighten your knee, and slowly pull back on the towel. You should feel a gentle stretch down the back of your leg. 4. Hold the stretch for 15 to 30 seconds. Or even better, hold the stretch for 1 minute if you can. 5. Repeat 2 to 4 times. Straight-leg raises to the outside 1. Lie on your side, with your affected leg on top. 2. Tighten the front thigh muscles of your top leg to keep your knee straight. 3. Keep your hip and your leg straight in line with the rest of your body, and keep your knee pointing forward. Do not drop your hip back. 4. Lift your top leg straight up toward the ceiling, about 12 inches off the floor. Hold for about 6 seconds, then slowly lower your leg. 5. Repeat 8 to 12 times. Clamshell 1. Lie on your side, with your affected leg on top and your head propped on a pillow. Keep your feet and knees together and your knees bent. 2. Raise your top knee, but keep your feet together. Do not let your hips roll back. Your legs should open up like a clamshell. 3. Hold for 6 seconds. 4. Slowly lower your knee back down. Rest for 10 seconds. 5. Repeat 8 to 12 times. Standing quadriceps stretch 1. If you are not steady on your feet, hold on to a chair, counter, or wall. You can also lie on your stomach or your side to do this exercise. 2. Bend the knee of the leg you want to stretch, and reach behind you to grab the front of your foot or ankle with the hand on the same side. For example, if you are stretching your right leg, use your right hand. 3. Keeping your knees next to each other, pull your foot toward your buttock until you feel a gentle stretch across the front of your hip and down the front of your thigh. Your knee should be pointeddirectly to the ground, and not out to the side. 4. Hold the stretch for 15 to 30 seconds. 5. Repeat 2 to 4 times. Piriformis stretch 1. Lie on your back with your legs straight. 2. Lift your affected leg and bend your knee. With your opposite hand, reach across your body, and then gently pull your knee toward your opposite shoulder. 3. Hold the stretch for 15 to 30 seconds. 4. Repeat 2 to 4 times. Double [id number] 1. Lie on your back with your knees bent and your feet flat on the floor. You can put a small pillow under your head and neck if it is more comfortable. 2. Bring both knees to your chest. 3. Keep your lower back pressed to the floor. Hold for 15 to 30 seconds. 4. Relax, and lower your knees to the starting position. 5. Repeat 2 to 4 times. Follow-up care is a dean part of your treatment and safety. Be sure to make and go to all appointments, and call your doctor if you are having problems. It's also a good idea to know your test resultsand keep a list of the medicines you take. Where can you learn more? Visit our health information library at [email or web address] You can also view health information on [employer], your personal patient account. Log in or sign up today. Enter N503 in the search box to learn more about Trochanteric Bursitis: Exercises. ?? [id number] [employer]. Care instructions adapted under license by [facility]. This care instruction is for use with your licensed healthcare professional. If you have questions about a medical condition or this instruction, always ask your healthcare professional. [employer] disclaims any warranty or liability for your use of this information. Content Version: 10.4.181917; Current as of: March 31, 2014 documented in this encounter Progress Notes * Isaiah Mcpherson MD - 05/18/2015 9:07 AM EDT Images from the original note were not included. Rheumatology Clinic: Dr. Mcpherson 05/17/2015 [id number] Crystal Felder is seen in follow-up of her rheumatoid arthritis, which is both rheumatoid factor and CCP positive. She is also GABRIELLE and Ro-positive, but we believe the predominant clinical picture here is one of rheumatoid arthritis. That has done very well on the combination of methotrexate and adalimumab. That continues to be the case, although she does have ongoing musculoskeletal pain. 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 Regan Moore in [place]. In terms of that last problem, he now has her on buspirone, just 10 mg at night, to try and help with her clenching due to anxiety. Thus far that seems to be helpful. She also takes Tylenol or even Tylenol PM for that. In terms of the bursitis, again this was a temporary situation affecting both hips laterally and seemed to interfere with her ability to sleep at night because when she tried to lie on either side, she developed pain in the left lateral hip. Sometimes this pain seemed to extend into the upper buttock and the SI area. But as I noted, that seems to have quieted down. In terms of the costochondritis, we've discussed this with her in the past, although I'm not sure she remembers that. She's seen her new physician in [place] at the [facility] and he also diagnosed costochondritis. That bothers her intermittently and can cause a pleuritic chest pain.But in general she's done quite well. She's had no problems with the methotrexate or Humira. She had lab work within the last 1-2 weeks at [facility] when she was seen about the chest discomfort. 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 Patient Active Problem List Diagnosis Code ??? Rheumatoid arthritis 714.0 ??? Fibromyalgia 729.1 ??? Depression 311 ??? Iron deficiency anemia due to chronic blood loss 280.0 ??? Sleep disturbance 780.50 ??? Uveitis 364.3 ??? Anxiety 300.00 ??? Enthesopathy of hip region 726.5 ??? Perimenopausal 627.2 ??? Myalgia and myositis 729.1 ??? Costochondritis 733.6 Medications 05/17/15 1105 Medication Sig Taking? busPIRone (BUSPAR) 10 mg Tablet Take 10 [...] Call clinic before/prior to starting medication/script. Yes Physical Exam: She looks well. She is in good spirits today. Blood pressure 135/57, pulse 62, temperature 36.6 ??C (97.8 ??F), temperature source Oral, height 157.5 cm (5' 2), weight 70.761 kg (156 lb), SpO2 100 %. Skin: Clear. HEENT: Unremarkable. Lungs: Clear. Heart: Regular rhythm and rate without murmur, gallop, or rub. Abdomen: Benign. No masses, tenderness, or organomegaly. Extremities: No edema. Good distal pulses. Musculoskeletal: She has no synovitis in her hands and only the most minimal of degenerative changes. Her wrists, elbows, and shoulders move well. Her hips move well, but range of motion on the rightproduces some low back/right SI area pain. But the hips themselves move very well. She is tender over the trochanteric bursae bilaterally and that seems to reproduce her pain. Her knees are fine. Her ankles move well. Her distal feet show DJD without any synovitis. Neuro: Grossly intact. Assessment: I reassured her that she's continuing to do well on methotrexate and adalimumab for herunderlying rheumatoid arthritis. We will not make any changes there. She has some ongoing issues with more local MSK problems. I gave her some exercises to do for the trochanteric bursitis. She'll let me know how that goes. In terms of the costochondritis, I recommend that she try Tylenol, a medication that has been good for some of her other pains, particularly at night. She can continue to takeTylenol PM as necessary. We'll track down her labs from [facility]. If we're missing anything, we will have that done close to home. We gave the patient the following specific instructions: Patient Instructions You're doing well in terms of your RA. Continue current regimen. The hip pain represents trochanteric bursitis, Try exercises below. Your chest pain is costochondritis, which is painful but not dangerous. Try Tylenol for that. If not helpful, go back to Advil (ibuprofen). We'll track down labs from [facility]. If they did not get everything we need, we'll let you know. Follow up in 6 months. Call if problems. [facility] Trochanteric Bursitis: Exercises Your Care Instructions Here are some examples of typical rehabilitation exercises for your condition. Start each exercise slowly. Ease off the exercise if you start to have pain. Your doctor or physical therapist will tell you when you can start these exercises and which ones will work best for you. How to do the exercises Hamstring wall stretch 1. Lie on your back in a doorway, with your good leg through the open door. 2. Slide your affected leg up the wall to straighten your knee. You should feel a gentle stretch down the back of your leg. ?? Do not arch your back. ?? Do not bend either knee. ?? Keep one heel touching the floor and the other heel touching the wall. Do not point your toes. 3. Hold the stretch for at least 1 minute to begin. Then try to lengthen the time you hold the stretch to as long as 6 minutes. 4. Repeat 2 to 4 times. If you do not have a place to do this exercise in a doorway, there is another way to do it: 1. Lie on your back, and bend the knee of your affected leg. 2. Loop a towel under the ball and toes of that foot, and hold the ends of the towel in your hands. 3. Straighten your knee, and slowly pull back on the towel. You should feel a gentle stretch down the back of your leg. 4. Hold the stretch for 15 to 30 seconds. Or even better, hold the stretch for 1 minute if you can. 5. Repeat 2 to 4 times. Straight-leg raises to the outside 1. Lie on your side, with your affected leg on top. 2. Tighten the front thigh muscles of your top leg to keep your knee straight. 3. Keep your hip and your leg straight in line with the rest of your body, and keep your knee pointing forward. Do not drop your hip back. 4. Lift your top leg straight up toward the ceiling, about 12 inches off the floor. Hold for about 6 seconds, then slowly lower your leg. 5. Repeat 8 to 12 times. Clamshell 1. Lie on your side, with your affected leg on top and your head propped on a pillow. Keep your feet and knees together and your knees bent. 2. Raise your top knee, but keep your feet together. Do not let your hips roll back. Your legs should open up like a clamshell. 3. Hold for 6 seconds. 4. Slowly lower your knee back down. Rest for 10 seconds. 5. Repeat 8 to 12 times. Standing quadriceps stretch 1. If you are not steady on your feet, hold on to a chair, counter, or wall. You can also lie on your stomach or your side to do this exercise. 2. Bend the knee of the leg you want to stretch, and reach behind you to grab the front of your foot or ankle with the hand on the same side. For example, if you are stretching your right leg, use your right hand. 3. Keeping your knees next to each other, pull your foot toward your buttock until you feel a gentle stretch across the front of your hip and down the front of your thigh. Your knee should be pointeddirectly to the ground, and not out to the side. 4. Hold the stretch for 15 to 30 seconds. 5. Repeat 2 to 4 times. Piriformis stretch 1. Lie on your back with your legs straight. 2. Lift your affected leg and bend your knee. With your opposite hand, reach across your body, and then gently pull your knee toward your opposite shoulder. 3. Hold the stretch for 15 to 30 seconds. 4. Repeat 2 to 4 times. Double [id number] 1. Lie on your back with your knees bent and your feet flat on the floor. You can put a small pillow under your head and neck if it is more comfortable. 2. Bring both knees to your chest. 3. Keep your lower back pressed to the floor. Hold for 15 to 30 seconds. 4. Relax, and lower your knees to the starting position. 5. Repeat 2 to 4 times. Follow-up care is a dean part of your treatment and safety. Be sure to make and go to all appointments, and call your doctor if you are having problems. It's also a good idea to know your test resultsand keep a list of the medicines you take. Where can you learn more? Visit our health information library at http://Shopdeca/QED | [employer] You can also view health information on [employer], your personal patient account. Log in or sign up today. Enter N503 in the search box to learn more about Trochanteric Bursitis: Exercises. ?? [id number] [employer]. Care instructions adapted under license by [facility]. This care instruction is for use with your licensed healthcare professional. If you have questions about a medical condition or this instruction, always ask your healthcare professional. [employer] disclaims any warranty or liability for your use of this information. Content Version: 10.4.415500; Current as of: March 31, 2014 Over 20 minutes of the 25 minute follow-up were spent discussing these problems and their treatmentoptions in [id number] counseling. No orders of the defined types were placed in this encounter. Visit Diagnoses: 1. Rheumatoid arthritis 2. Fibromyalgia 3. Sleep disturbance 4. Enthesopathy of hip region, unspecified laterality 5. Costochondritis documented in this encounter Plan of Treatment Upcoming Encounters Date Type Department Care Team (Late st Contact Info) Description 07/21/2024 1:00 PM EDT Office [place] [address] Isaiah Mcpherson MD [facility] [place] [address] documented as of this encounter Visit Diagnoses Diagnosis Rheumatoid arthritis Fibromyalgia Mylagia and myositis, unspecified Sleep disturbance Sleep disturbance, unspecified Enthesopathy of hip region, unspecified laterality Costochondritis Tietze's disease documented in this encounter Care Teams Comprehensive Advisor Relationship Specialty Start Date End Date Jennifer Anaya APRN [facility] [place] [address] PCP - General 08/17/11 01/03/17 documented as of this encounter"
--- OUTSIDE RECORDS SUMMARY | 2024-06-19 00:23 | XMS_ITS | Encounter Summary ---
Author Organization [facility] [address] Care Team Providers Care Supervising Broker Name Role Phone Anaya Jennifer Coffey APRN Primary Care Provider [phone]- [phone] Reason for Visit * Reason Comments Follow-up Encounter Details Date Type Department Care Team (Late st Contact Info) Description 02/13/2013 1:15 PM EDT Follow-[place] [address] Isaiah Mcpherson MD [facility] [address] Rheumatoid arthritis (Primary Dx); Depression; Fibromyalgia; Sleep disturbance; Iron deficiency anemia due to chronic blood loss; Other malaise and fatigue Discharge Disposition: Home Social History Tobacco Use Types Packs/Day Years Used Date Smoking Tobacco: Former Sex and Gender Information Value Date Recorded Sex Assigned at Not on file Gender Identity Not on file Sexual Orientation Not on file documented as of this encounter Last Filed Vital Signs Vital Sign Reading Time Taken Comments Blood Pressure 100/84 02/13/2013 1:18 PM EDT Pulse 62 02/13/2013 1:18 PM EDT Temperature - - Respiratory Rate 16 02/13/2013 1:18 PM EDT Oxygen Saturation - - Inhaled Oxygen Concentration - - Weight 69.1 kg (152 lb 6.4 oz) 02/13/2013 1:18 P M EDT Height - - Body Mass Index 27.87 12/20/2011 11:21 AM EST documented in this encounter Patient Instructions * Patient Instructions* Isaiah Mcpherson MD - 02/13/2013 2:05 PM EDT Continue current regimen. Get labs today. Call for results. Do exercises for hip bursitis. Follow up in 6 months. Call if problems. documented in this encounter Progress Notes * Isaiah Mcpherson MD - 02/13/2013 2:09 PM EDT Rheumatology Clinic: Dr. Mcpherson 02/13/2013 [id number] Crystal Edmonds is seen in follow-up of her rheumatoid arthritis and fibromyalgia. We have not seen her since 12/20/2011. There was a mixup in her appointment scheduling. In any case, she had done verywell through that time until recently. She had to stop the Humira because of a respiratory infection. Right around the same time she ran out of methotrexate and did not have any refills. So she missed about 3 weeks of that. Probably as a result of that, she's felt less well lately. This was just 2 or 3 weeks ago that she missed the medications. She has had more pain in her wrists, left greater than right. This is an old problem joint. She has some stiffness that lasts most of the day - there isno morning predominance. She's also had pain in the lateral hips. She also reports that she's going through menopause. She's having 2 periods a month now and feels that she is most likely iron deficient. The last time she was in, we told her to try Vitron C. She did that briefly, but then stopped. She doesn't tolerate iron well and she's not enthusiastic about taking medications anyway. [place] her father's back in August 2011. The family has mutually decided not to expand any further. They're very busy already and they don't want to take on more work. 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 Patient Active Problem List Diagnoses Code ??? Rheumatoid arthritis 714.0 ??? Fibromyalgia 729.1 ??? Depression 311 ??? Iron deficiency anemia due to chronic blood loss 280.0 ??? Sleep disturbance 780.50 Current Outpatient Prescriptions on File Prior to Visit Medication Sig Dispense Refill ??? methotrexate 2.5 mg tablet Can take without regard to food. 84 tablet 1 ??? sertraline (ZOLOFT) 100 mg tablet Take 1 tablet by mouth daily. 90 tablet 3 ??? folic acid (FOLVITE) 1 mg tablet Take 1 tablet by mouth daily. 90 tablet 3 ??? CIS Free Text Med - Vitamin D ??? GLUCOSAMINE SULFATE-MSM ORAL ??? ferrous sulfate 325 mg (65 mg Iron) tablet ??? DOCOSAHEXANOIC ACID/EPA (FISH OIL ORAL) ??? amitriptyline (ELAVIL) 10 mg tablet 10 M-2 Tablet(s), PO, QHS ??? Adalimumab (HUMIRA PEN) 40 mg/0.8 mL PnKt Inject 40 mg subcutaneously every 14 days. 3 kit 3 ??? DISCONTD: traZODone (DESYREL) 50 mg tablet Take 1-2 tablets by mouth nightly. 60 tablet 5 ??? DISCONTD: ibuprofen (ADVIL;MOTRIN) 800 mg tablet Physical Exam: She looks well. Blood pressure 100/84, pulse 62, resp. rate 16, weight 69.128 kg (152 lb 6.4 oz). Skin: Clear. HEENT: Unremarkable. Lungs: Clear. Heart: Regular rhythm and rate without murmur, gallop, or rub. Abdomen: Benign. No masses, tenderness, or organomegaly. Extremities: No edema. Good distal pulses. Musculoskeletal: She really has no synovitis in the upper or lower extremities, including both wrists. She does have trochanteric bursitis bilaterally. Her hips themselves move well. Neuro: Grossly intact. Assessment: I think she's actually doing pretty well and I think she just got in trouble when she off her medicines. Hopefully she will catch up again. I did offer her to go on a brief course of prednisone, but she declined. In terms of her bursitis, we gave her a brochure with the exercises to do.I told her if she's not feeling better in a month or two, to get in touch with us. We'll get lab work today. I'll see her in followup in 6 months. Over 20 minutes of the 25 minute follow-up were spent discussing these problems and their treatmentoptions in [id number] counseling. Orders Placed This Encounter Procedures ??? CBC (with Diff) ??? Comprehensive metabolic panel (non-fasting) ??? TSH ??? Iron and TIBC ??? Ferritin Visit Diagnoses: 1. Rheumatoid arthritis CBC (with Diff), Comprehensive metabolic panel (non-fasting) 2. Depression TSH 3. Fibromyalgia TSH 4. Sleep disturbance 5. Iron deficiency anemia due to chronic blood loss Iron and TIBC, Ferritin 6. Other malaise and fatigue TSH Results for CRYSTAL EDMONDS ( ) Ref. Range 02/13/2013 14:22 WBC Latest Range: 4.0-10.0 x10(3)/mcL 4.5 RBC Latest Range: 3.93-5.22 x10(6)/mcL 3.62 (L) Hemoglobin Latest Range: 11.2-15.7 gm/dL 11.1 (L) Hematocrit Latest Range: 34.0-45.0 % 34.2 MCV Latest Range: 79.0-94.0 fL 94.5 (H) MCH Latest Range: 26.6-32.2 pg 30.7 MCHC Latest Range: 32.0-36.5 gm/dL 32.5 RDWSD Latest Range: 35.0-46.0 fL 46.5 (H) RDWCV Latest Range: 10.9-14.4 % 13.6 Platelets Latest Range: 145-370 x10(3)/mcL 291 MPV Latest Range: 9.0-12.0 fL 9.6 Neutr Abs (ANC) Latest Range: 1.50-6.30 x10(3)/mcL 2.17 Neutrophils % Latest Range: 34.0-71.0 % 48.4 Immature Gran % Latest Range: 0.00-0.66 % 0.20 Lymphocytes % Latest Range: 19.0-53.0 % 38.1 Monocytes % Latest Range: 4.0-13.0 % 10.7 Eosinophils % Latest Range: 0.0-7.0 % 2.2 Basophils % Latest Range: 0.0-2.0 % 0.4 Abbie Gran Abs Latest Range: 0.00-0.05 x10(3)/mcL 0.01 Lymphocytes Abs Latest Range: 1.0-3.6 x10(3)/mcL 1.7 Monocyte Abs Latest Range: 0.2-1.0 x10(3)/mcL 0.5 Eosinophils Abs Latest Range: 0.0-0.5 x10(3)/mcL 0.1 Basophils Abs Latest Range: 0.0-0.2 x10(3)/mcL 0.0 Sodium Latest Range: 135-145 mmol/L 139 Potassium Latest Range: 3.5-5.0 mmol/L 4.4 Chloride Latest Range: 98-107 mmol/L 105 CO2 Latest Range: 22-31 mmol/L 25 Anion Gap Latest Range: 5-15 mmol/L 9 BUN Latest Range: 8-18 mg/dL 11 Creatinine Latest Range: 0.70-1.20 mg/dL 0.68 (L) Estimated GFR Latest Range: >=60 >60 Glucose Lvl Latest Range: 60-199 mg/dL 89 Calcium Latest Range: 8.5-10.5 mg/dL 9.3 Total Protein Latest Range: 6.4-8.3 gm/dL 7.0 Albumin Latest Range: 3.2-5.2 gm/dL 4.4 Total Bilirubin Latest Range: 0.2-1.3 mg/dL 0.2 Bili, Direct Latest Range: 0.0-0.3 mg/dL 0.1 Alk Phos Latest Range: 40-104 unit/L 53 AST Latest Range: 0-30 unit/L 19 ALT Latest Range: 0-30 unit/L 13 Ferritin Latest Range: 15-150 ng/mL 9 (L) Iron Latest Range: 30-150 mcg/dL 22 (L) TIBC Latest Range: 250-450 mcg/dL 376 Iron Saturation Latest Range: 20-50 % 6 (L) TSH Latest Range: 0.27-4.20 mcIU/mL 1.30 documented in this encounter Plan of Treatment Upcoming Encounters Date Type Department Care Team (Late st Contact Info) Description 07/21/2024 1:00 PM EDT Office [place] [id number] Isaiah Mcpherson MD [facility] [place] [address] documented as of this encounter Procedures Procedure Name Priority Date/Time Associated Diagnosis Comments DIFFERENTIAL, AUTOMATED Routine 02/13/2013 2:22 PM EDT IRON AND TIBC Routine 02/13/2013 2:22 PM EDT Iron deficiency anemia due to chronic blood loss CBC (WITH DIFF) Routine 02/13/2013 2:22 PM EDT Rheumatoid arthritis TSH Routine 02/13/2013 2:22 PM EDT Depression Fibromyalgia Other malaise and fatigue FERRITIN Routine 02/13/2013 2:22 PM EDT Iron deficiency anemia due to chronic blood loss COMPREHENSIVE METABOLIC PANEL Routine 02/13/2013 2:22 PM EDT Rheumatoid arthritis documented in this encounter Results * Differential, Automated (02/13/2013 2:22 PM EDT) Neutrophil % 48.4 34.0 - 71.0 % CERNER MILLENNIUM Neutrophil Absolute 2.17 1.50 - 6.30 x10(3)/mcL CERNER MILLENNIUM Lymph % 38.1 19.0 - 53.0 % CERNER MILLENNIUM Lymphocytes Abs 1.7 1.0 - 3.6 x10(3)/mcL CERNER MILLENNIUM Monocyte % 10.7 4.0 - 13.0 % CERNER MILLENNIUM Monocyte Abs 0.5 0.2 [...] 0.05 x10(3)/mcL CERNER MILLENNIUM Blood specimen (specimen) 02/13/2013 2:22 PM EDT 02/13/2013 2:25 PM EDT Isaiah Mcpherson MD HEMATOLOGY ORDERA BLES Performing Organization Address City/[facility]/ZIP Co de Phone Number CERNER MILLENNIUM * (ABNORMAL) Ferritin (02/13/2013 2:22 PM EDT) Ferritin 9(L) 15 - 150 ng/mL CERNER MILLENNIUM Comment: Pediatric reference ranges not verified at [facility], interpret with caution. Reference ranges for females greater than 50 years of age approach values for men, i.e., 30-400 ng/mL. Blood specimen (specimen) 02/13/2013 2:22 PM EDT 02/13/2013 2:25 PM EDT Narrative Resulting Agency Comment Spec In Lab Isaiah Mcpherson MD CHEMISTRY ORDERAB LES Performing Organization Address [facility] Co de Phone Number CERNER MILLENNIUM * (ABNORMAL) Iron and TIBC (02/13/2013 2:22 PM EDT) Iron 22(L) 30 - 150 mcg/dL CERNER MILLENNIUM TIBC 376 250 - 450 mcg/dL CERNER MILLENNIUM Iron Saturation 6(L) 20 - 50 % CERN ER MILLENNIUM Blood specimen (specimen) 02/13/2013 2:22 PM EDT 02/13/2013 2:25 PM EDT Narrative Resulting Agency Comment Spec In Lab Isaiah Mcpherson MD CHEMISTRY ORDERAB LES Performing Organization Address [facility] Co de Phone Number CERNER MILLENNIUM * TSH (02/13/2013 2:22 PM EDT) Thyroid Stimulating Hormone 1.30 0.27 - 4.20 mcIU/mL CERNER MILLENNIUM Blood specimen (specimen) 02/13/2013 2:22 PM EDT 02/13/2013 2:25 PM EDT Narrative Resulting Agency Comment Spec In Lab Isaiah Mcpherson MD CHEMISTRY ORDERAB LES CERNER MILLENNIUM * (ABNORMAL) Comprehensive metabolic panel (non-fasting) (02/13/2013 2:22 PM EDT) Glucose 89 60 - 199 mg/dL CERNER MILLENNIUM Comment:Diabetes: >=200 mg/d L plus symptoms Blood Urea Nitrogen 11 8 - 18 mg/dL CERNER MILLENNIUM Creatinine 0.68(L) 0.70 - 1.20 mg/dL CERNER MILLENNIUM Comment: Please note that the pediatric reference intervals supplied above were not validated at [facility]. Results from pediatric patients should be interpreted in conjunction to the patient's age, height and muscle mass. Sodium 139 135 - 145 mmol/L CERNER MILLENNIUM Potassium 4.4 3.5 - 5.0 mmol/L CERNER MILLENNIUM Comment: Please note: ??Patients with WBC >100,000 may have falsely elevated Potassium levels. ??For accurate Potassium quantification in these patients send serum separator tube (gold top) for subsequent determinations. ??Contact the Clinical Chemistry Laboratory if there are any questions. Chloride 105 98 - 107 mmol/L CERNER MILLENNIUM Carbon Dioxide 25 22 - 31 mmol/L CERNER MILLENNIUM Anion Gap 9 5 - 15 mmol/L CERNER MILLENNIUM Calcium 9.3 8.5 - 10.5 mg/dL CERNER MILLENNIUM Protein, Total 7.0 6.4 - 8.3 gm/dL CERNER MILLENNIUM Albumin 4.4 3.2 - 5.2 gm/dL CERNER MILLENNIUM Aspartate Aminotransferase 19 0 - 30 unit/L CERNER MILLENNIUM Alanine Aminotransferase 13 0 - 30 unit/L CERNER MILLENNIUM Alkaline Phosphatase 53 40 - 104 unit/L CERNER MILLENNIUM Bilirubin, Total 0.2 0.2 - 1.3 mg/dL CERNER MILLENNIUM Bilirubin, Direct 0.1 0.0 - 0.3 mg/dL CERNER MILLENNIUM Est Glomerular Filtration Rate >60 >=60 CERNER MILLENNIUM Comment: The National Kidney Disease Education Program (NKDEP) has recommended all laboratories report estimated GFR (eGFR) along with plasma creatinine measurements to assist you with recognition of early kidney disease. Caveats: ??Plasma creatinine should be at steady-state (unchanged within the past week). For patients multiply eGFR by 1.2. The MDRD equation was developed using patients between the ages of 18 and 70 years. ?? The MDRD equation has not been validated for patients < 18 years of age and should not be used to assess renal function in the pediatric population. ??The MDRD eGFR equation will also overestimate the true GFR of patients above the age of 70. ??This overestimation is variable but increases with age. At present, NKDEP does NOT recommend using the MDRD equation for drug dosing purposes and pharmacists should continue to use their current dosing methods. In addition, numerical eGFR values greater than 60 ml/min/1.73 square meters should be treated as > 60, and not an exact number due to greater inaccuracies at these higher values. Per NKDEP, they classify normal renal function as any GFR >60ml/min/1.73 square meters; chronic kidney disease when GFR <60, and renal failure when GFR <15. ??This calculation may not be valid for patients with atypical muscle mass (very lean or obese), acute renal failure, and in patients with diabetic kidney disease. References: http://nkdep.nih.gov/resources/NKDEP_Suggestn4Labs_0606_508.pdf http://www.kidney.org/professionals/kls/pdf/faq_gfr.pdf Venkatesh K, Dre NA, Niki AK, Wolfgang TS, Emanuel AD, Areli KAREN. Relative performance of the MDRD and CKD-EPI equations for estimating glomerular filtration rate among patients with varied clinical presentations. Clin J Am Soc Nephrol;6:1963-72. Blood specimen (specimen) 02/13/2013 2:22 PM EDT 02/13/2013 2:25 PM EDT Narrative Resulting Agency Comment Spec In Lab Isaiah Mcpherson MD CHEMISTRY ORDERAB LES [facility] * (ABNORMAL) CBC (with Diff) (02/13/2013 2:22 PM EDT) White Blood Cell 4.5 4.0 - 10.0 x10(3)/mc L CERNER MILLENNIUM Red Blood Cell 3.62(L) 3.93 - 5.22 x10(6)/mc L CERNER MILLENNIUM Hemoglobin 11.1(L) 11.2 - 15.7 gm/dL CERNER MILLENNIUM Hematocrit 34.2 34.0 - 45.0 % CERNER MILLENNIUM Mean Cell Volume 94.5(H) 79.0 - 94.0 fL CERNER MILLENNIUM Mean Cell Hemoglobin 30.7 26.6 - 32.2 pg CERNER MILLENNIUM Mean Cell Hemoglobin Concentration 32.5 32.0 - 36.5 gm/dL CERNER MILLENNIUM Platelet 291 145 - 370 x10(3)/mc L CERNER MILLENNIUM RDW Standard Deviation 46.5(H) 35.0 - 46.0 fL CERNER MILLENNIUM RDW coefficient of variation 13.6 10.9 - 14.4 % CERNER MILLENNIUM Mean Platelet Volume 9.6 9.0 - 12.0 fL CERNER MILLENNIUM Blood specimen (specimen) 02/13/2013 2:22 PM EDT 02/13/2013 2:25 PM EDT Narrative Resulting Agency Comment Spec In Lab Isaiah Mcpherson MD HEMATOLOGY ORDER[facility] documented in this encounter Visit Diagnoses Diagnosis Rheumatoid arthritis(714.0)- Primary Rheumatoid arthritis Depression Depressive disorder, not elsewhere classified Fibromyalgia Mylagia and myositis, unspecified Sleep disturbance Sleep disturbance, unspecified Iron deficiency anemia due to chronic blood loss Iron deficiency anemia secondary to blood loss (chronic) Other malaise and fatigue documented in this encounter Care Teams Supervising Broker Relationship Specialty Start Date End Date Jennifer Anaya APRN [facility] [place] [address] PCP - General 08/17/11 01/03/17 documented as of this encounter
--- OUTSIDE RECORDS SUMMARY | 2024-06-19 00:23 | XMS_ITS | Encounter Summary ---
Author Organization [facility] [place] [address] Care Team Providers Care Hat And Cap Opener Name Role Phone Jennifer Anaya APRN Primary Care Provider [phone] Reason for Visit * Reason Onset Date Comments Medication Refill 10/17/2011 Encounter Details Date Type Department Care Team (Late st Contact Info) Description 10/17/2011 [place] [address] Isaiah Mcpherson MD [facility] [place] [address] [place] [address] Social History Tobacco Use Types Packs/Day Years Used Date Smoking Tobacco: Former Sex and Gender Information Value Date Recorded Sex Assigned at Not on file Gender Identity Not on file Sexual Orientation Not on file documented as of this encounter Plan of Treatment Upcoming Encounters Date Type Department Care Team (Late st Contact Info) Description 07/21/2024 1:00 PM EDT Office [place] [address] Isaiah Mcpherson MD [facility] [place] [address] [place] [address] documented as of this encounter Visit Diagnoses Not on filedocumented in this encounter Care Teams Hat And Cap Opener Relationship Specialty Start Date End Date Jennifer [place] [address] [place] [address] PCP - General 08/17/11 01/03/17 documented as of this encounter
--- OUTSIDE RECORDS SUMMARY | 2024-06-19 00:23 | XMS_ITS | Encounter Summary ---
Author Organization [facility] [place] [address] Care Team Providers Care Assembler Dry Cell And Battery Name Role Phone Magda Lebron MD Primary Care Provider [phone] Reason for Visit * Reason Onset Date Comments Medication Refill 03/22/2011 Encounter Details Date Type Department Care Team (Late st Contact Info) Description 03/22/2011 [place] [address] Isaiah Mcpherson MD [facility] [place] [address] Social History Tobacco Use Types Packs/Day Years Used Date Smoking Tobacco: Never Assessed Sex and Gender Information Value Date Recorded Sex Assigned at Not on file Gender Identity Not on file Sexual Orientation Not on file documented as of this encounter Plan of Treatment Upcoming Encounters Date Type Department Care Team (Late st Contact Info) Description 07/21/2024 1:00 PM EDT Office [place] [address] Isaiah Mcpherson MD [facility] [place] [address] documented as of this encounter Visit Diagnoses Not on filedocumented in this encounter Care Teams Assembler Dry Cell And Battery Relationship Specialty Start Date End Date Magda Lebron MD [address] [place] [address] PCP - General 09/19/10 08/16/11 documented as of this encounter
--- OUTSIDE RECORDS SUMMARY | 2024-06-19 00:23 | XMS_ITS | Encounter Summary ---
Author Organization [facility] [place] [address] Care Team Providers Care Software Requirements Engineer Name Role Phone Magda Lebron MD Primary Care Provider [phone] Reason for Visit * Reason Onset Date Comments Medication Refill 06/05/2011 Encounter Details Date Type Department Care Team (Late st Contact Info) Description 06/05/2011 Ref[place] [address] Isaiah Mcpherson MD [facility] [place] [address] Social History Tobacco Use Types Packs/Day Years [...] PM EDT Office [place] [address] Isaiah Mcpherson MD [facility] [place] [place] [address] documented as of this encounter Visit Diagnoses Not on filedocumented in this encounter Care Teams Software Requirements Engineer Relationship Specialty Start Date End Date Magda Lebron MD [address] [place] [id number] PCP - General 09/19/10 08/16/11 documented as of this encounter
--- OUTSIDE RECORDS SUMMARY | 2024-06-19 00:23 | XMS_ITS | Encounter Summary ---
Author Organization [facility] [place] [address] Care Team Providers Care Family And Consumer Education Teacher Name Role Phone Jennifer Anaya APRN Primary Care Provider [phone] Reason for Visit * Reason Onset Date Comments Medication Refill 07/17/2013 Encounter Details Date Type Department Care Team (Late st Contact Info) Description 07/17/2013 [place] [address] Isaiah Mcpherson MD [facility] [place] [address] Social History Tobacco Use Types Packs/Day Years Used Date Smoking Tobacco: Former Sex and Gender Information Value Date Recorded Sex Assigned at Not on file Gender Identity Not on file Sexual Orientation Not on file documented as of this encounter Plan of Treatment Upcoming Encounters Date Type Department Care Team (Late st Contact Info) Description 07/21/2024 1:00 PM EDT Office [place] [address] Isaiah Mcpherson MD [facility] [place] [address] documented as of this encounter Visit Diagnoses Not on filedocumented in this encounter Care Teams Family And Consumer Education Teacher Relationship Specialty Start Date End Date Jennifer [place] [address] [place] [address] PCP - General 08/17/11 01/03/17 documented as of this encounter
--- OUTSIDE RECORDS SUMMARY | 2024-06-19 00:23 | XMS_ITS | Encounter Summary ---
Author Organization [facility] [place] [address] Care Team Providers Care Social Work Nurse Name Role Phone Jennifer Anaya APRN Primary Care Provider [phone] Reason for Visit * Reason Onset Date Comments Medication Refill 03/20/2012 Encounter Details Date Type Department Care Team (Late st Contact Info) Description 03/20/2012 Refill [place] [address] Isaiah Mcpherson MD [facility] [place] [address] RA (rheumatoid arthritis) Social History Tobacco Use Types Packs/Day Years Used Date Smoking Tobacco: Former Sex and Gender Information Value Date Recorded Sex Assigned at Not on file Gender Identity Not on file Sexual Orientation Not on file documented as of this encounter Plan of Treatment Upcoming Encounters Date Type Department Care Team (Late st Contact Info) Description 07/21/2024 1:00 PM EDT Office [place] [address] Isaiah Mcpherson MD [facility] [place] [address] documented as of this encounter Visit Diagnoses Diagnosis RA (rheumatoid arthritis) Rheumatoid arthritis documented in this encounter Care Teams Social Work Nurse Relationship Specialty Start Date End Date Jennifer [place] [address] [place] [address] PCP - General 08/17/11 01/03/17 documented as of this encounter
--- OUTSIDE RECORDS SUMMARY | 2024-06-19 00:23 | XMS_ITS | Encounter Summary ---
Author Organization [facility] [place] [address] Care Team Providers Care Vehicle Controls Engineer Name Role Phone Magda Lebron MD Primary Care Provider [phone] Reason for Visit * Reason Comments Follow-up Encounter Details Date Type Department Care Team (Late st Contact Info) Description 08/16/2011 2:15 PM EDT [place] [address] Isaiah Mcpherson MD [facility] [place] [address] Rheumatoid arthritis (Primary Dx); Other malaise and fatigue Discharge Disposition: Home Social History Tobacco Use Types Packs/Day Years Used Date Smoking Tobacco: Former Sex and Gender Information Value Date Recorded Sex Assigned at Not on file Gender Identity Not on file Sexual Orientation Not on file documented as of this encounter Last Filed Vital Signs Vital Sign Reading Time Taken Comments Blood Pressure 117/66 08/16/2011 2:29 PM EDT Pulse 50 08/16/2011 2:29 PM EDT Temperature 36.8 ??C (98.2 ??F) 08/16/2011 2:29 PM ED T Respiratory Rate 18 08/16/2011 2:29 PM EDT Oxygen Saturation 99% 08/16/2011 2:29 PM EDT Inhaled Oxygen Concentration - - Weight 71.2 kg (157 lb) 08/16/2011 2:29 PM EDT Height 157.5 cm (5' 2) 08/16/2011 2:29 PM EDT Body Mass Index 28.72 08/16/2011 2:29 PM EDT documented in this encounter Patient Instructions * Patient Instructions* Isaiah Mcpherson MD - 08/16/2011 3:11 PM EDT Get labs today. Try taking 2 arthritis strength tylenol at night. Follow up in 4 months. Call if not better with Tylenol. documented in this encounter Progress Notes * Isaiah Mcpherson MD - 08/21/2011 8:11 PM EDT Patient is seen in follow-up of her rheumatoid arthritis. Last time, she seemed like a new person after the addition of Humira to her methotrexate and Plaquenil. She did have some very subtle residual synovitis of the left wrist and left ankle, but she had only been on Humira for less than 3 monthsand we hoped that with continued therapy, that would resolve. We told her that she could go ahead and stop the Plaquenil. She now reports that she called back shortly thereafter feeling worse. She wondered if it was related to stopping the Plaquenil and wanted to know if she should go back on that. Unfortunately, she did not hear back. She stayed off the Plaquenil. She describes feeling poorly again. She has a diffuseachiness and fatigue. She really doesn't complain spontaneously about the left wrist and left ankle, her previous problem areas. The biggest pain she has now is in the midfoot on the right and to a lesser extent on the left. She had a stress fracture in that right midfoot years ago. She says because of this, it's difficult for her to walk. That disappoints her. An example she gives is that her brother was going out mushroom picking and asked her to join him. She refused because she felt she just would not be able to handle the walk. We then went into her mental state further. Apparently her father is deteriorating. 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 She is tired. Shebecame tearful when talking about her father. She is on Zoloft but she missed a week or so. She is back on it now Physical Exam: She seems down again, this is dramatically different from the last visit when she had perked up so much. Blood pressure 117/66, pulse 50, temperature 36.8 ??C (98.2 ??F), temperature source Oral, resp. rate 18, height 157.5 cm (5' 2), weight 71.215 kg (157 lb), SpO2 99.00%. Skin: Clear. HEENT: Unremarkable. Lungs: Clear. Heart: Regular rhythm and rate without murmur, gallop, or rub. Abdomen: Benign. No masses, tenderness, or organomegaly. Extremities: No edema. Good distal pulses. Musculoskeletal: She has no synovitis in her hands. The right wrist is fine. The mild residual synovitis we identified in the left ulnar wrist last time is now completely resolved. She has pain-free range of motion of that left wrist. Her elbows and shoulders move well. Her hips move well. Her knees are fine. Right ankle is fine. As with the wrists, the residual synovitis is now gone. She does have some squeeze tenderness at the midfoot, right greater than left. She has minimal dorsal osteophytes there. The MTPs on the left were fine. On the right, the exam is a little bit inconsistent. She has some squeeze tenderness across the MTPs, but that pain is mainly coming from the first MTP and istherefore more likely degenerative. She had some tenderness to squeeze at the second MTP, but that was not a consistent finding. Neuro: Grossly intact. Assessment: I think if anything her rheumatoid arthritis appears even better than on the last visit. I think once again there is an element of depression here, and she freely admits that. This is related to her father's deteriorating condition. She is also frustrated by her inability to do things, including exercising. She just describes a general soreness. It almost has a fibromyalgia quality toit at this point. In addition I think she's out of shape from being sick for so long. We recommended that she try 2 Tylenol arthritis strength at night and to take that consistently for2 weeks. She has been taking that on an intermittent basis and it helps. She's leery of taking it regularly. I told her this would not be a problem. We'll check lab work today. I asked her to check back in a couple of weeks and let me know how she is doing. I encouraged her that the rheumatoid seems to be doing fine. I'll see her in followup in a few months. Visit Diagnoses: 1. Rheumatoid arthritis (714.0) CBC (with Diff), Sedimentation rate, High Sensitivity CRP, Comprehensive metabolic panel (non-fasting), GABRIELLE, Extractable Nuclear Antigen (HESHAM) Ab, DNA Antibody (Double-Stranded), CBC (with Diff), Sedimentation rate, High Sensitivity CRP, Comprehensive metabolic panel(non- fasting), GABRIELLE, Extractable Nuclear Antigen (HESHAM) Ab, DNA Antibody (Double-Stranded) 2. Other malaise and fatigue (780.79) TSH, Iron and TIBC, TSH, Iron and TIBC Results for CRYSTAL EDMONDS ( ) Ref. Range 08/16/2011 15:28 WBC Latest Range: 4.0-10.0 x10(3)/mcL 3.2 (L) RBC Latest Range: 3.93-5.22 x10(6)/mcL 3.72 (L) Hemoglobin Latest Range: 11.2-15.7 gm/dL 11.7 Hematocrit Latest Range: 34.0-45.0 % 33.5 (L) MCV Latest Range: 79.0-94.0 fL 90.1 MCH Latest Range: 26.6-32.2 pg 31.5 MCHC Latest Range: 32.0-36.5 gm/dL 34.9 RDWSD Latest Range: 35.0-46.0 fL 50.6 (H) RDWCV Latest Range: 10.9-14.4 % 15.4 (H) Platelets Latest Range: 145-370 x10(3)/mcL 266 MPV Latest Range: 9.0-12.0 fL 9.7 Neutr Abs (ANC) Latest Range: 1.50-6.30 x10(3)/mcL 1.39 (L) Neutrophils % Latest Range: 34.0-71.0 % 43.5 Immature Gran % Latest Range: 0.00-0.66 % 0.30 Lymphocytes % Latest Range: 19.0-53.0 % 40.9 Monocytes % Latest Range: 4.0-13.0 % 13.1 (H) Eosinophils % Latest Range: 0.0-7.0 % 1.9 Basophils % Latest Range: 0.0-2.0 % 0.3 Abbie Gran Abs Latest Range: 0.00-0.05 x10(3)/mcL 0.01 Lymphocytes Abs Latest Range: 1.0-3.6 x10(3)/mcL 1.3 Monocyte Abs Latest Range: 0.2-1.0 x10(3)/mcL 0.4 Eosinophils Abs Latest Range: 0.0-0.5 x10(3)/mcL 0.1 Basophils Abs Latest Range: 0.0-0.2 x10(3)/mcL 0.0 Sed Rate Latest Range: 0-20 mm/hr 10 Total Bilirubin Latest Range: 0.2-1.3 mg/dL 0.2 Bili, Direct Latest Range: 0.0-0.3 mg/dL 0.1 Alk Phos Latest Range: 40-104 unit/L 40 AST Latest Range: 0-30 unit/L 18 ALT Latest Range: 0-30 unit/L 10 Iron Latest Range: 30-150 mcg/dL 25 (L) TIBC Latest Range: 250-450 mcg/dL 343 Iron Saturation Latest Range: 20-50 % 7 (L) Sodium Latest Range: 135-145 mmol/L 138 Potassium Latest Range: 3.5-5.0 mmol/L 3.8 Chloride Latest Range: 98-107 mmol/L 104 CO2 Latest Range: 22-31 mmol/L 27 Anion Gap Latest Range: 5-15 mmol/L 7 BUN Latest Range: 8-18 mg/dL 11 Creatinine Latest Range: 0.70-1.20 mg/dL 0.66 (L) Estimated GFR Latest Range: >=60 >60 Glucose Lvl Latest Range: 60-199 mg/dL 86 Calcium Latest Range: 8.5-10.5 mg/dL 9.2 Total Protein Latest Range: 6.4-8.3 gm/dL 6.8 Albumin Latest Range: 3.2-5.2 gm/dL 4.2 CRP High Sens No range found 0.4 GABRIELLE Titer No range found 1:160 speckled DNA Ab (DS) Latest Range: Neg Neg HESHAM Ab-Gross No range found See below TSH Latest Range: 0.27-4.20 mcIU/mL 1.58 Ab to Extractable Nuclear Ag Eval,S SS-A/Ro Ab, IgG, S 5.4 H U -- EXPECTED VALUES -- <1.0 (Negative) Interpretation: Positive (>=1.0) SS-B/La Ab, IgG, S 0.7 U -- EXPECTED VALUES -- <1.0 (Negative) Sm Ab, IgG, S <0.2 U -- EXPECTED VALUES -- <1.0 (Negative) HUMAN RESOURCES SUPERVISOR Ab, IgG, S 0.6 U -- EXPECTED VALUES -- <1.0 (Negative) Scl 70 Ab, IgG, S <0.2 U -- EXPECTED VALUES -- <1.0 (Negative) Zoey 1 Ab, IgG, S <0.2 U -- EXPECTED VALUES -- <1.0 (Negative) documented in this encounter Plan of Treatment Upcoming Encounters Date Type Department Care Team (Late st Contact Info) Description 07/21/2024 1:00 PM EDT Office [place] [address] Isaiah Mcpherson MD [facility] [place] [address] documented as of this encounter Procedures Procedure Name Priority Date/Time Associated Diagnosis Comments EXTRACTABLE NUCLEAR ANTIGEN (HESHAM) AB Routine 08/16/2011 3:28 PM EDT Rheumatoid arthritis DNA ANTIBODY (DOUBLE-STRANDED) Routine 08/16/2011 3:28 PM EDT Rheumatoid arthritis DIFFERENTIAL, AUTOMATED Routine 08/16/2011 3:28 PM EDT IRON AND TIBC Routine 08/16/2011 3:28 PM EDT Other malaise and fatigue GABRIELLE TITER Routine 08/16/2011 3:28 PM EDT SEDIMENTATION RATE Routine 08/16/2011 3: 28 PM EDT Rheumatoid arthritis CBC (WITH DIFF) Routine 08/16/2011 3:28 PM EDT Rheumatoid arthritis CRP, CARDIAC RISK (HS CRP) Routine 08/16/2011 3:28 PM EDT Rheumatoid arthritis GABRIELLE ANTIBODY SCREEN Routine 08/16/2011 3 :28 PM EDT Rheumatoid arthritis TSH Routine 08/16/2011 3:28 PM EDT Other malaise and fatigue COMPREHENSIVE METABOLIC PANEL Routine 08/16/2011 3:28 PM EDT Rheumatoid arthritis documented in this encounter Results * GABRIELLE TITER (08/16/2011 3:28 PM EDT) GABRIELLE Titer positive CERNER MILLENNIUM Comment: 1:160 Titer seen with Speckled pattern. ??Is suggestive of autoantibodies to Sm, HUMAN RESOURCES SUPERVISOR, SCL-70, or SS-B. Blood specimen (specimen) 08/16/2011 3:28 PM EDT 08/17/2011 8:11 AM EDT Isaiah Mcpherson MD IMMUNOLOGY ORDERA [facility] CERNER MILLENNIUM * (ABNORMAL) A-DIFF (08/16/2011 3:28 PM EDT) Neutrophil % 43.5 34.0 - 71.0 % CERNER MILLENNIUM Neutrophil Absolute 1.39(L) 1.50 - 6.30 x10(3)/mc L CERNER MILLENNIUM Lymph % 40.9 19.0 - 53.0 % CERNER MILLENNIUM Lymphocytes Abs 1.3 1.0 - 3.6 x10(3)/mc L CERNER MILLENNIUM Monocyte % 13.1(H) 4.0 - 13.0 % CERNER MILLENNIUM Monocyte Abs 0.4 0.2 - 1.0 x10(3)/mc L CERNER MILLENNIUM Eos % 1.9 0.0 - 7.0 % CERNER MILLENNIUM Eosinophils Abs 0.1 0.0 - 0.5 x10(3)/mc L CERNER MILLENNIUM Basophil % 0.3 0.0 - 2.0 % CERNER MILLENNIUM Baso Absolute 0.0 0.0 - 0.2 x10(3)/mc L CERNER MILLENNIUM Immature Gran % 0.30 0.00 - 0.66 % CERNER MILLENNIUM Comment: Immature granulocytes(IG's)percentage and absolute count will include metamyelocytes, myelocytes, and promyelocytes. Blood smears from CBCs yielding IG's will be scanned manually for concordance. If this scan disagrees with the automated IG or if promyelocytes are noted, a manual differential will be performed. Immature Gran Absolute 0.01 0.00 - 0.05 x10(3)/mc L CERNER MILLENNIUM Blood specimen (specimen) 08/16/2011 3:28 PM EDT 08/16/2011 3:41 PM EDT Isaiah Mcpherson MD HEMATOLOGY ORDERA BLES Performing Organization Address City/[facility]/ZIP Co de Phone Number CERNER MILLENNIUM * (ABNORMAL) Iron and TIBC (08/16/2011 3:28 PM EDT) Iron 25(L) 30 - 150 mcg/dL CERNER MILLENNIUM TIBC 343 250 - 450 mcg/dL CERNER MILLENNIUM Iron Saturation 7(L) 20 - 50 % CERN ER MILLENNIUM Blood specimen (specimen) 08/16/2011 3:28 PM EDT 08/16/2011 3:41 PM EDT Isaiah Mcpherson MD CHEMISTRY ORDERAB LES Performing Organization Address [facility] Co de Phone Number CERNER ROSANNEENNIUM * TSH (08/16/2011 3:28 PM EDT) Thyroid Stimulating Hormone 1.58 0.27 - 4.20 mcIU/mL CERNER MILLENNIUM Blood specimen (specimen) 08/16/2011 3:28 PM EDT 08/16/2011 3:41 PM EDT Isaiah Mcpherson MD CHEMISTRY ORDERAB LES Performing Organization Address [facility]/ZIP Co de Phone Number CERNER MILLENNIUM * DNA Antibody (Double-Stranded) (08/16/2011 3:28 PM EDT) DNA Ab (DS) Neg Neg MARBELLA STRONG Blood specimen (specimen) 08/16/2011 3:28 PM EDT 08/17/2011 8:08 AM EDT Isaiah Mcpherson MD LAB SEND OUT VIKY APONTE [facility] * Extractable Nuclear Antigen (HESHAM) Ab (08/16/2011 3:28 PM EDT) HESHAM Ab ? HI ? Expected Test ? Result ?LO ??Units ??Values Ab to Extractable Nuclear Ag Eval,S ??SS-A/Ro Ab, IgG, S ? 5.4 ? H ?? U -- EXPECTED VALUES -- <1.0 (Negative) Interpretation: Positive (>=1.0) ??SS-B/La Ab, IgG, S ? 0.7 ? U -- EXPECTED VALUES -- <1.0 (Negative) ??Sm Ab, IgG, S ?<0.2 ?U -- EXPECTED VALUES -- <1.0 (Negative) ??HUMAN RESOURCES SUPERVISOR Ab, IgG, S ? 0.6 ? U -- EXPECTED VALUES -- <1.0 (Negative) ??Scl 70 Ab, IgG, S ?<0.2 ?U -- EXPECTED VALUES -- <1.0 (Negative) ??Zoey 1 Ab, IgG, S ?<0.2 ?U -- EXPECTED VALUES -- <1.0 (Negative) Test Performed by: [place] [address] Wick Tender: Katherine Chowdhury, Ph.D. CERNER MILLENNIUM Blood specimen (specimen) 08/16/2011 3:28 PM EDT 08/16/2011 4:49 PM EDT Isaiah Mcpherson MD LAB SEND OUT VIKY APONTE CERNER MILLENNIUM * (ABNORMAL) GABRIELLE (08/16/2011 3:28 PM EDT) GABRIELLE Pos Titer TF(A) Neg CERNER MILLENNIUM Blood specimen (specimen) 08/16/2011 3:28 PM EDT 08/17/2011 8:11 AM EDT Isaiah Mcpherson MD LAB SEND OUT VIKY APONTE CERNER MILLENNIUM * (ABNORMAL) Comprehensive metabolic panel (non-fasting) (08/16/2011 3:28 PM EDT) Glucose 86 60 - 199 mg/dL CERNER MILLENNIUM Comment:Diabetes: >=200 mg/d L plus symptoms Blood Urea Nitrogen 11 8 - 18 mg/dL CERNER MILLENNIUM Creatinine 0.66(L) 0.70 - 1.20 mg/dL CERNER MILLENNIUM Sodium 138 135 - 145 mmol/L CERNER MILLENNIUM Potassium 3.8 3.5 - 5.0 mmol/L CERNER MILLENNIUM Comment: [...] - 31 mmol/L CERNER MILLENNIUM Anion Gap 7 5 - 15 mmol/L CERNER MILLENNIUM Calcium 9.2 8.5 - 10.5 mg/dL CERNER MILLENNIUM Protein, Total 6.8 6.4 - 8.3 gm/dL CERNER MILLENNIUM Albumin 4.2 3.2 - 5.2 gm/dL CERNER MILLENNIUM Aspartate Aminotransferase 18 0 - 30 unit/L CERNER MILLENNIUM Alanine Aminotransferase 10 0 - 30 unit/L CERNER MILLENNIUM Alkaline Phosphatase 40 40 - 104 unit/L CERNER MILLENNIUM Bilirubin, [...] past week). For patients multiply eGFR by 1.2.MDRD equation has not been validated for pediatric patients and is only valid for patients with age >= 18 years. At present, NKDEP does NOT recommend using [...] with diabetic kidney disease. References: http://nkdep.nih.gov/resources/NKDEP_Suggestn4Labs_0606_508.pdf http://www.kidney.org/professionals/kls/pdf/faq_gfr.pdf Blood specimen (specimen) 08/16/2011 3:28 PM EDT 08/16/2011 3:41 PM EDT Isaiah Mcpherson MD CHEMISTRY ORDERAB LES [facility] * High Sensitivity CRP (08/16/2011 3:28 PM EDT) Pathologist [facility] C-Reactive Protein High Sensitivity 0.4 mg/L [facility] Comment: Interpretations: 1) For cardiac risk assessment, two values (fasting or nonfasting sample acceptable) taken at least 2 weeks apart, should be averaged to provide a more reliable estimate of marker level. ??This laboratory uses the recommendations from the AHA/CDC Scientific Statement for interpretations of future risks of cardiovascular events: ? <1.0 mg/L: low risk 1.0 - 3.0 mg/L: moderate risk >3.0 mg/L: high risk groups for future cardiovascular events 2) The general reference range of apparently healthy individuals using this test is <5.0 mg/L (derived from the test package insert) A few words of caution: For cardiac assessment, when a value >10 mg/L is encountered, there should be a search for an acute inflammatory condition or infection (in patients with acute inflammation, the concentration can increase to >500 mg/L). ??The >10 mg/L should be discarded if such a situation exists, since the risk for coronary heart disease cannot be provided, and a repeat specimen, taken at least two weeks after resolution of the acute inflammatory condition, may allow for appraisal of coronary risk information. References: 1. Yue TA et. al. ??AHA/CDC Scientific Statement: Markers of Inflammation and Cardiovascular Disease. ??Circulation 2003; 107:499-511 2. Srinivasan PM. ??Clinical applications of C-reactive protein for cardiovascular disease detection and prevention. ??Circulation 2003; 107:363-369 Blood specimen (specimen) 08/16/2011 3:28 PM EDT 08/16/2011 3:41 PM EDT Isaiah Mcpherson MD CHEMISTRY ORDERAB LES Performing Organization Address [facility] Co de Phone Number CERNER MILLENNIUM * Sedimentation rate (08/16/2011 3:28 PM EDT) Sedimentation Rate Automated 10 0 - 20 mm/hr CERNER MILLENNIUM Blood specimen (specimen) 08/16/2011 3:28 PM EDT 08/16/2011 3:41 PM EDT Isaiah Mcpherson MD HEMATOLOGY ORDERA BLES Performing Organization Address [facility] de Phone Number CERNER MILLENNIUM * (ABNORMAL) CBC (with Diff) (08/16/2011 3:28 PM EDT) White Blood Cell 3.2(L) 4.0 - 10.0 x10(3)/mc L CERNER MILLENNIUM Red Blood Cell 3.72(L) 3.93 - 5.22 x10(6)/mc L CERNER MILLENNIUM Hemoglobin 11.7 11.2 - 15.7 gm/dL CERNER MILLENNIUM Hematocrit 33.5(L) 34.0 - 45.0 % CERNER MILLENNIUM Mean Cell Volume 90.1 79.0 - 94.0 fL CERNER MILLENNIUM Mean Cell Hemoglobin 31.5 26.6 - 32.2 pg CERNER MILLENNIUM Mean Cell Hemoglobin Concentration 34.9 32.0 - 36.5 gm/dL CERNER MILLENNIUM Platelet 266 145 - 370 x10(3)/mc L CERNER MILLENNIUM RDW Standard Deviation 50.6(H) 35.0 - 46.0 fL CERNER MILLENNIUM RDW coefficient of variation 15.4(H) 10.9 - 14.4 % CERNER MILLENNIUM Mean Platelet Volume 9.7 9.0 - 12.0 fL CERNER MILLENNIUM Blood specimen (specimen) 08/16/2011 3:28 PM EDT 08/16/2011 3:41 PM EDT Isaiah Mcpherson MD HEMATOLOGY ORDERA BLES Performing Organization Address [facility]/State/ZIP Co de Phone Number [facility] documented in this encounter Visit Diagnoses Diagnosis Rheumatoid arthritis(714.0)- Primary Rheumatoid arthritis Other malaise and fatigue documented in this encounter Care Teams Vehicle Controls Engineer Relationship Specialty Start Date End Date Magda Lebron MD [address] [place], [place] [id number] PCP - General 09/19/10 08/16/11 documented as of this encounter
--- OUTSIDE RECORDS SUMMARY | 2024-06-19 00:23 | XMS_ITS | Encounter Summary ---
Author Organization [facility] [place] [address] Care Team Providers Care Motorcycle Engine Assembler Name Role Phone Jennifer Anaya APRN Primary Care Provider [phone] Reason for Visit * Reason Onset Date Comments Medication Refill 09/17/2012 Encounter Details Date Type Department Care Team (Late st Contact Info) Description 09/17/2012 Ref[place] [address] Jordan Thorne LPN RA (rheumatoid arthritis) Social History Tobacco Use [...] 1:00 PM EDT Office [place] [address] Isaiah Mcpherson MD [facility] [place] [address] documented as of this encounter Visit Diagnoses Diagnosis RA (rheumatoid arthritis) Rheumatoid arthritis documented in this encounter Care Teams Motorcycle Engine Assembler Relationship Specialty Start Date End Date Jennifer [place] [address] [place] [address] PCP - General 08/17/11 01/03/17 documented as of this encounter
--- OUTSIDE RECORDS SUMMARY | 2024-06-19 00:23 | XMS_ITS | Encounter Summary ---
Author Organization [facility] [place] [address] Care Team Providers Care Patient Resource Specialist Name Role Phone Magda Lebron MD Primary Care Provider [phone] Encounter Details Date Type Department Care Team (Late st Contact Info) Description 12/28/2010 1:15 PM EST [place] [address] Isaiah Mcpherson MD [facility] [address] [address] Discharge Disposition: Home Social History Tobacco Use [...] 1:00 PM EDT Office [place] [address] Isaiah Mcpherson MD [facility] [address] [place] [address] documented as of this encounter Procedures Procedure Name Priority Date/Time Associated Diagnosis Comments DIFFERENTIAL, AUTOMATED Routine 12/28/2010 3:20 PM EST CBC (WITH DIFF) Routine 12/28/2010 3:20 PM EST COMPREHENSIVE METABOLIC PANEL Routine 12/28/2010 3:20 PM EST documented in this encounter Results * REFLEX LAB-A-DIFF (12/28/2010 3:20 PM EST) Neutrophil % 67.7 34.0 - 71.0 % CERNER MILLENNIUM Neutrophil Absolute 3.92 1.50 - 6.30 x10(3)/mcL CERNER MILLENNIUM Lymph % 20.0 19.0 - 53.0 % CERNER MILLENNIUM Lymphocytes Abs 1.2 1.0 - 3.6 x10(3)/mcL CERNER MILLENNIUM Monocyte % 9.1 4.0 - 13.0 % CERNER MILLENNIUM Monocyte Abs 0.5 0.2 - 1.0 x10(3)/mcL CERNER MILLENNIUM Eos % 2.4 0.0 - 7.0 % CERNER MILLENNIUM Eosinophils Abs 0.1 0.0 - 0.5 x10(3)/mcL CERNER MILLENNIUM Basophil % 0.5 0.0 - 2.0 % CERNER MILLENNIUM Baso Absolute 0.0 0.0 - 0.2 x10(3)/mcL CERNER MILLENNIUM Immature Gran % 0.30 0.00 [...] 0.05 x10(3)/mcL CERNER MILLENNIUM Blood specimen (specimen) 12/28/2010 3:20 PM EST 12/28/2010 3:31 PM EST Isaiah Mcpherson MD HEMATOLOGY ORDERA BLES CERYASSINE GREENIUM * CBC (12/28/2010 3:20 PM EST) White Blood Cell 5.8 4.0 - 10.0 x10(3)/mcL CERNER MILLENNIUM Red Blood Cell 4.10 3.93 - 5.22 x10(6)/mcL CERNER MILLENNIUM Hemoglobin 12.5 11.2 - 15.7 gm/dL CERNER MILLENNIUM Hematocrit 37.4 34.0 - 45.0 % CERNER MILLENNIUM Mean Cell Volume 91.2 79.0 - 94.0 fL CERNER MILLENNIUM Mean Cell Hemoglobin 30.5 26.6 - 32.2 pg CERNER MILLENNIUM Mean Cell Hemoglobin Concentration 33.4 32.0 - 36.5 gm/dL CERNER MILLENNIUM Platelet 302 145 - 370 x10(3)/mcL CERNER MILLENNIUM RDW Standard Deviation 45.3 35.0 - 46.0 fL CERNER MILLENNIUM RDW coefficient of variation 13.7 10.9 - 14.4 % CERNER MILLENNIUM Mean Platelet Volume 9.6 9.0 - 12.0 fL CERNER MILLENNIUM Blood specimen (specimen) 12/28/2010 3:20 PM EST 12/28/2010 3:31 PM EST Isaiah Mcpherson MD HEMATOLOGY ORDERA BLES [facility] MILLENNIUM * COMPREHENSIVE METABOLIC PANEL (NON-FASTING) (12/28/2010 3:20 PM EST) Pathologist [facility] Glucose 97 60 - 199 mg/dL CERNER MILLENNIUM Comment:Diabetes: >=200 mg/d L plus symptoms Blood Urea Nitrogen 12 8 - 18 mg/dL CERNER MILLENNIUM Creatinine 0.78 0.70 - 1.20 mg/dL CERNER MILLENNIUM Sodium 136 135 - 145 mmol/L CERNER MILLENNIUM Potassium [...] - 31 mmol/L CERNER MILLENNIUM Anion Gap 5 5 - 15 mmol/L CERNER MILLENNIUM Calcium 9.2 8.5 - 10.5 mg/dL CERNER MILLENNIUM Protein, Total 7.2 6.4 - 8.3 gm/dL CERNER MILLENNIUM Albumin 4.4 3.2 - 5.2 gm/dL CERNER MILLENNIUM Aspartate Aminotransferase 18 0 - 30 unit/L CERNER MILLENNIUM Alanine Aminotransferase 10 0 - 30 unit/L CERNER MILLENNIUM Alkaline Phosphatase 57 40 - 104 unit/L CERNER MILLENNIUM Bilirubin, [...] at steady-state (unchanged within the past week). ??Patient age > = 18 years, and for Americans multiply eGFR by 1.2. At present, NKDEP does NOT recommend using [...] disease. References: http://nkdep.nih.gov/resources/NKDEP_Suggestn4Labs_0606_508.pdf http://www.kidney.org/professionals/kls/pdf/faq_gfr.pdf Blood specimen (specimen) 12/28/2010 3:20 PM EST 12/28/2010 3:31 PM EST Isaiah Mcpherson MD CHEMISTRY ORDERAB LES CERYASSINE STRONG documented in this encounter Visit Diagnoses Not on filedocumented in this encounter Care Teams Patient Resource Specialist Relationship Specialty Start Date End Date Magda Lebron MD [address] [place] [address] PCP - General 09/19/10 08/16/11 documented as of this encounter
--- OUTSIDE RECORDS SUMMARY | 2024-06-19 00:23 | XMS_ITS | Encounter Summary ---
Author Organization [facility] [place] [address] Care Team Providers Care Electronics Scale Tester Name Role Phone Héctor Jennifer Coffey APRN Primary Care Provider [phone] Reason for Visit * Reason Onset Date Comments Prior Authorization 07/15/2012 HUMIRA Encounter Details Date Type Department Care Team (Late st Contact Info) Description 07/15/2012 [place] [id number] Isaiah Redmond MD [facility] [address] [place] [address] Prior Authorization (HUMIRA) Social History Tobacco Use Types Packs/Day Years Used Date Smoking Tobacco: Former Sex and Gender Information Value Date Recorded Sex Assigned at Not on file Gender Identity Not on file Sexual Orientation Not on file documented as of this encounter Miscellaneous Notes * Telephone Encounter - Jose Francisco Mcgovern - 07/15/2012 2:57 PM EDT Medication Prior Authorization RHEUMATOLOGY DR[facility] REDMOND Medication name/dose/directions: HUMIRA 40 MG INJECT SQ Q ONCE EVERY OTHER WEEK Rationale for request: RA Health plan: [place] ID#[id number] Authorizing hobbies and crafts sales representative name: APPROVAL FAXED TO OFFICE Faxed to health plan on: 06/04/12 Health plan decision: Approved Quantity approved: 12/25 Authorization number: Start date: 06/04/12 End date: 06/04/13 Patient notified? yes Pharmacy notified? yes documented in this encounter Plan of Treatment Upcoming Encounters Date Type Department Care Team (Late st Contact Info) Description 07/21/2024 1:00 PM EDT [place] [address] Isaiah Redmond MD [facility] [place] [address] documented as of this encounter Visit Diagnoses Not on filedocumented in this encounter Care Teams Electronics Scale Tester Relationship Specialty Start Date End Date Jennifer Anaya APRN [facility] [place] [address] PCP - General 08/17/11 01/03/17 documented as of this encounter
--- OUTSIDE RECORDS SUMMARY | 2024-06-19 00:23 | XMS_ITS | Encounter Summary ---
[facility] [place] [address] Care Team Providers Care Manager Creative Name Role Phone Jennifer Anaya APRN Primary Care Provider [phone]- [phone] Reason for Visit * Reason Onset Date Comments Medication Refill 04/23/2012 Encounter Details Date Type Department Care Team (Late st Contact Info) Description 04/23/2012 [place] [address] Chon Barraza, RN Social History Tobacco Use [...] 1:00 PM EDT Office [place] [address] Isaiah Mcpherson MD [facility] [place] [address] documented as of this encounter Visit Diagnoses Not on filedocumented in this encounter Care Teams Manager Creative Relationship Specialty Start Date End Date Jennifer [place] [address] [place] [address] PCP - General 08/17/11 01/03/17 documented as of this encounter
--- OUTSIDE RECORDS SUMMARY | 2024-06-19 00:23 | XMS_ITS | Encounter Summary ---
Author Organization [facility] [place] [address] Care Team Providers Care Photo Printer Name Role Phone Magda Lebron MD Primary Care Provider [phone] Reason for Visit * Reason Onset Date Comments Medication Refill 05/28/2011 Encounter Details Date Type Department Care Team (Late st Contact Info) Description 05/28/2011 Refill [place] [address] [facility] [place] [address] RA (rheumatoid arthritis) Social History Tobacco Use [...] PM EDT Office [place] [address] [facility] [place] [address] documented as of this encounter Visit Diagnoses Diagnosis RA (rheumatoid arthritis) Rheumatoid arthritis documented in this encounter Care Teams Photo Printer Relationship Specialty Start Date End Date Magda Lebrno MD [address] [place] [address] PCP - General 09/19/10 08/16/11 documented as of this encounter
--- OUTSIDE RECORDS SUMMARY | 2024-06-19 00:23 | XMS_ITS | Encounter Summary ---
Author Organization [facility] [place] [address] Care Team Providers Care Pyroglazer Name Role Phone Jennifer Anaya APRN Primary Care Provider [phone] Reason for Visit * Reason Comments Medication Refill Encounter Details Date Type Department Care Team (Late st Contact Info) Description 08/14/2012 [place] [address] Isaiah Mcpherson MD [facility] [place] [address] Social History Tobacco Use Types Packs/Day Years Used Date Smoking Tobacco: Former Sex and Gender Information Value Date Recorded Sex Assigned at Not on file Gender Identity Not on file Sexual Orientation Not on file documented as of this encounter Plan of Treatment Upcoming Encounters Date Type Department Care Team (Late st Contact Info) Description 07/21/2024 1:00 PM EDT Office [place] [address] Isaiah Mcpherson MD [facility] [place] [address] documented as of this encounter Visit Diagnoses Not on filedocumented in this encounter Care Teams Pyroglazer Relationship Specialty Start Date End Date Jennifer Anaya [place] [address] [place] [address] PCP - General 08/17/11 01/03/17 documented as of this encounter
--- OUTSIDE RECORDS SUMMARY | 2024-06-19 00:23 | XMS_ITS | Encounter Summary ---
Author Organization [facility] [place] [address] Care Team Providers Care Cut Off Saw Operator Name Role Phone Magda [facility] MD Primary Care Provider [phone] Encounter Details Date Type Department Care Team (Latest Contact Info) Description 05/01/2011 1:23 PM EDT - 05/01/2011 11:59 PM EDT Hospital [place] [address] CLINIC, Magda Bullard MD [address] [place] [address] Abnormal mammogram, unspecified Discharge Disposition: Home Social History Tobacco Use Types Packs/Day Years Used Date Smoking Tobacco: Never Assessed Sex and Gender Information Value Date Recorded Sex Assigned at Not on file Gender Identity Not on file Sexual Orientation Not on file documented as of this encounter Medications at Time of Discharge Medication Sig Dispensed Refills Start Date End Date folic acid (FOLVITE) 1 mg tablet Take 1 tablet by mouth daily. 90 tablet 3 04/03/2011 04/23/2012 hydroxychloroquine (PLAQUENIL) 200 mg tablet Take 1 tablet by mouth 2 times daily. 60 tablet 5 03/22/2011 08/16/2011 Adalimumab (HUMIRA PEN) 40 mg/0.8 mL PnKt 40 MG/0.8 ML SQ Q other WEEK 01/05/2011 05/28/2011 CIS Free Text Med - Vitamin D 12/28/2010 07/24/2013 sertraline (ZOLOFT) 100 mg tablet 100 MG = 1 Tablet(s), PO, QHS 12/28/2010 10/17/2011 clonAZEpam (KLONOPIN) 1 mg tablet 1 MG = 1 Tablet(s), PO, Once daily as needed 12/28/2010 10/17/2011 GLUCOSAMINE SULFATE-MSM ORAL 12/28/2010 07/24/2013 ferrous sulfate 325 mg (65 mg Iron) tablet 12/28/2010 07/24/20 13 methotrexate 2.5 mg tablet 17.5 MG = 7 Tablet(s), PO, QWEEK 12/28/2010 06/05/2011 DOCOSAHEXANOIC ACID/EPA (FISH OIL ORAL) 12/28/2010 07/24/2013 amitriptyline (ELAVIL) 10 mg tablet 10 M-2 Tablet(s), PO, QHS 12/28/2010 07/24/2013 multivitamin (THERAGRAN) tablet 12/28/2010 08/16/2011 ibuprofen (ADVIL;MOTRIN) 800 mg tablet 12/28/2010 02/13/2013 documented as of this encounter Plan of Treatment Upcoming Encounters Date Type Department Care Team (Late st Contact Info) Description 07/21/2024 1:00 PM EDT Office [place] [address] Isaiah Mcpherson MD [facility] [place] [address] documented as of this encounter Procedures Procedure Name Priority Date/Time Associated Diagnosis Comments MAMMO CALL BACK DIAGNOSTIC EXTRA VIEW UNILATERAL Routine 05/01/2011 2:36 PM EDT Abnormal mammogram, unspecified documented in this encounter Results * Mammo call back diagnostic extra view unilateral (05/01/2011 2:36 PM EDT) Anatomical Region Laterality Modality Breast N/A Mammography 05/01/2011 2:36 PM EDT Narrative 05/01/2011 5:05 PM EDT DIAGNOSTIC RIGHT MAMMOGRAPHY ON 05/01/11: ?? CLINICAL INDICATION: Area of focal asymmetry in the deep central Right breast noted on recent screening study from 04/19/11. ?? TECHNIQUE: Spot CC, spot MLO, step oblique's and LM views obtained with direct digital capture. ?? FINDINGS: The study includes additional views. An initial area of concern in the Right breast completely effaces on the additional views. ? CONCLUSION ?? This is a NEGATIVE mammogram (ACR Category 1). Routine screening mammography is recommended with the frequency dependent on the patient's age and breast cancer risk factors. ?? A letter has been sent to this patient by [facility]. Procedure Note Doug Barreto MD - 05/01/2011 DIAGNOSTIC RIGHT MAMMOGRAPHY ON 05/01/11: CLINICAL INDICATION: Area of focal asymmetry in the deep central Rightbreast noted on recent screening study from 04/19/11. TECHNIQUE: Spot CC, spot MLO, step oblique's and LM views obtained withdirect digital capture. FINDINGS: The study includes additional views. An initial area of concernin the Right breast completely effaces on the additional views. CONCLUSION This is a NEGATIVE mammogram (ACR Category 1). Routine screeningmammography is recommended with the frequency dependent on the patient's age and breastcancer risk factors. A letter has been sent to this patient by the [facility]. Isabella Wu MD IMG MAMMO ORDERABLES documented in this encounter Visit Diagnoses Diagnosis Abnormal mammogram, unspecified documented in this encounter Care Teams Cut Off Saw Operator Relationship Specialty Start Date End Date Magda [facility] MD [address] [place] [address] PCP - General 09/19/10 08/16/11 documented as of this encounter
--- OUTSIDE RECORDS SUMMARY | 2024-06-19 00:23 | XMS_ITS | Encounter Summary ---
Author Organization [facility] [place] [address] Care Team Providers Care Warehouse General Laborer Name Role Phone Jennifer Anaya Erlinda HINOJOSA Primary Care Provider [phone] Reason for Visit * Reason Onset Date Comments Other 02/05/2013 mtx rx Encounter Details Date Type Department Care Team (Late st Contact Info) Description 02/05/2013 [place] [address] Maribel Escalante RN Other (mtx rx) Social History Tobacco Use Types Packs/Day Years Used Date Smoking Tobacco: Former Sex and Gender Information Value Date Recorded Sex Assigned at Not on file Gender Identity Not on file Sexual Orientation Not on file documented as of this encounter Miscellaneous Notes * Telephone Encounter - Maribel Escalante RN - 02/05/2013 8:47 AM EDT RX went through with no dosage instructions. Gave verbal that instructions are Take 7 tablets weekly. documented in this encounter Plan of Treatment Upcoming Encounters Date Type Department Care Team (Late st Contact Info) Description 07/21/2024 1:00 PM EDT Office [place] [address] Isaiah Mcpherson MD [facility] [place] [address] [place] [address] documented as of this encounter Visit Diagnoses Not on filedocumented in this encounter Care Teams Warehouse General Laborer Relationship Specialty Start Date End Date Jennifer [place] [address] [place] [address] PCP - General 08/17/11 01/03/17 documented as of this encounter
--- OUTSIDE RECORDS SUMMARY | 2024-06-19 00:23 | XMS_ITS | Encounter Summary ---
Author Organization [facility] [place] [address] Care Team Providers Care Primer Supervisor Name Role Phone Anaya Jennifer Coffey APRN Primary Care Provider [phone] Reason for Visit * Reason Comments Follow-up Encounter Details Date Type Department Care Team (Late st Contact Info) Description 12/20/2011 11:15 AM EST Follow-[place] [address] Isaiah Mcpherson MD [facility] [place] [address] Fibromyalgia (Primary Dx); Depression; Rheumatoid arthritis; Iron deficiency anemia due to chronic blood loss; Sleep disturbance Discharge Disposition: Home Social History Tobacco Use Types Packs/Day Years Used Date Smoking Tobacco: Former Sex and Gender Information Value Date Recorded Sex Assigned at Not on file Gender Identity Not on file Sexual Orientation Not on file documented as of this encounter Last Filed Vital Signs Vital Sign Reading Time Taken Comments Blood Pressure 109/63 12/20/2011 11:21 AM EST Pulse 54 12/20/2011 11:21 AM EST Temperature - - Respiratory Rate 20 12/20/2011 11:21 AM EST Oxygen Saturation - - Inhaled Oxygen Concentration - - Weight 72 kg (158 lb 12 oz) 12/20/2011 11:21 AM EST Height 157.5 cm (5' 2) 12/20/2011 11:21 AM EST Body Mass Index 29.04 12/20/2011 11:21 AM EST documented in this encounter Patient Instructions * Patient Instructions* Isaiah Mcpherson MD - 12/20/2011 12:21 PM EST Get labs today. Stop clonazepam and amitriptyllne. Star trazodone 1 tab at night. Can increase to 2 as necessary. Can use benadryl on top of trazodone as necessary. Try Vitron-C for iron deficiency. Exercise! Follow up in 5 months. documented in this encounter Progress Notes * Isaiah Mcpherson MD - 12/20/2011 1:33 PM EST Rheumatology Clinic: Dr. Mcpherson 12/20/2011 [id number] Crystal Edmonds is seen in follow-up of her rheumatoid arthritis. We decided at her last visit that she also has an element of fibromyalgia. At that time, although she was feeling diffuse aches and pains, her exam was negative for any evidence of active rheumatoid arthritis. In that regard, she had done very well on Humira, methotrexate, and Plaquenil, and it was in the context of stopping the Plaquenil that she felt worse. But we really didn't think this was the rheumatoid coming back out. It was purely coincidental. So she's maintained control of her rheumatoid now with just Humira and methotrexate. The area where she's having pain these days is more soft tissue. She describes muscle fatigue and achiness. She's more tired. She's still having trouble sleeping at night. She would like to be able to exercise more. She did recently have an episode of profound fatigue around her period. She went back to her primary team and she was iron deficient again. She was put on oral iron, but she's intolerant of that. She's not tried Vitron C. The big news, though, is that her father did pass away in 08/2011. He had had Alzheimer's for 6 years. To a certain extent, it was a relief for the family. Now things are less stressful, but she hasn't been able to resume her normal sleep cycle. 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 Now she no longer has that responsibility, but she has trouble sleeping at night, and actually sleeps better during the day when she takes a nap. She was prescribed amitriptyline by us in the past. She's also on clonazepam. More recently she's tried Benadryl and that helps. But still her sleep is not optimal. She also thinks there is an element of depression and we did address that withsertraline which is now 100 mg at night. 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 Things are little bit better with the passing of her fatherbecause there is not the shared responsibility for his care. 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 Patient Active Problem List Diagnoses Code ??? Rheumatoid arthritis 714.0 ??? Fibromyalgia 729.1AV ??? Depression 311L ??? Iron deficiency anemia due to chronic blood loss 280.0Q ??? Sleep disturbance 780.50M Current outpatient prescriptions ordered prior to encounter Medication Sig Dispense Refill ??? methotrexate 2.5 mg tablet Take 7 tablets by mouth once a week. Patients taking this medicationrequire labs to be done every 3 months. 84 tablet 1 ??? sertraline (ZOLOFT) 100 mg tablet Take 1 tablet by mouth nightly. 90 tablet 3 ??? Adalimumab (HUMIRA PEN) 40 mg/0.8 mL PnKt Inject 40 mg subcutaneously every 14 days. 3 kit 3 ??? folic acid (FOLVITE) 1 mg tablet Take 1 tablet by mouth daily. 90 tablet 3 ??? CIS Free Text Med - Vitamin D ??? GLUCOSAMINE SULFATE-MSM ORAL ??? ferrous sulfate 325 mg (65 mg Iron) tablet ??? DOCOSAHEXANOIC ACID/EPA (FISH OIL ORAL) ??? amitriptyline (ELAVIL) 10 mg tablet 10 M-2 Tablet(s), PO, QHS ??? ibuprofen (ADVIL;MOTRIN) 800 mg tablet Physical Exam: She looks well. Blood pressure 109/63, pulse 54, resp. rate 20, height 157.5 cm (5' 2), weight 72.009 kg (158 lb 12 oz). Skin: Clear. HEENT: Unremarkable. Lungs: Clear. Heart: Regular rhythm and rate without murmur, gallop, or rub. Abdomen: Benign. No masses, tenderness, or organomegaly. Extremities: No edema. Good distal pulses. Musculoskeletal: She has no synovitis in the upper or lower extremities. She does have a lot of myofascial trigger points. She has some mild squeeze tenderness at the mid foot. There is no synovitis in the distal feet. Neuro: Grossly intact. Assessment: I think she's continuing to do very well in terms of the rheumatoid. That's not the issue here. She has a profound sleep disturbance and some fibromyalgia. There is also an element of depression and iron deficiency contributing to her fatigue. For sleep, we put her on trazodone at 50 to100 mg at night. I told her not to take the clonazepam and not to take the amitriptyline with this.If she needs something beyond the trazodone during this experiment, she can use the Benadryl. I encouraged her to continue to exercise. She's recently started doing the treadmill. I commended her on that. In terms of the iron deficiency, I told her to try Vitron C, which may be more tolerable for her. We'll check her liver function tests today. I'll see her in followup in 5 months. Over 30 minutes of the 40 minute follow-up were spent discussing these problems and their treatmentoptions in [id number]-[id number] counseling. Orders Placed This Encounter Procedure ??? Hepatic function panel Visit Diagnoses: 1. Fibromyalgia (729.1AV) 2. Depression (311L) 3. Rheumatoid arthritis (714.0) Hepatic Function Panel, Hepatic Function Panel 4. Iron deficiency anemia due to chronic blood loss (280.0Q) 5. Sleep disturbance (780.50M) traZODone (DESYREL) 50 mg tablet Results for CRYSTAL EDMONDS ( ) Ref. Range 12/20/2011 12:38 Total Bilirubin Latest Range: 0.2-1.3 mg/dL 0.2 Bili, Direct Latest Range: 0.0-0.3 mg/dL 0.1 Alk Phos Latest Range: 40-104 unit/L 48 AST Latest Range: 0-30 unit/L 24 ALT Latest Range: 0-30 unit/L 15 Total Protein Latest Range: 6.4-8.3 gm/dL 7.1 Albumin Latest Range: 3.2-5.2 gm/dL 4.5 documented in this encounter Plan of Treatment Upcoming Encounters Date Type Department Care Team (Late st Contact Info) Description 07/21/2024 1:00 PM EDT Office Visit [place] [address] Isaiah Mcpherson MD [facility] [place] [address] documented as of this encounter Procedures Procedure Name Priority Date/Time Associated Diagnosis Comments HEPATIC FUNCTION PANEL Routine 12/20/2011 12:38 PM EST Rheumatoid arthritis documented in this encounter Results * Hepatic Function Panel (12/20/2011 12:38 PM EST) Protein, Total 7.1 6.4 - 8.3 gm/dL [facility]ERNER MILLENNIUM Albumin 4.5 3.2 - 5.2 gm/dL CERNER MILLENNIUM Aspartate Aminotransferase 24 0 - 30 unit/L CERNER MILLENNIUM Alanine Aminotransferase 15 0 - 30 unit/L CERNER MILLENNIUM Alkaline Phosphatase 48 40 - 104 unit/L CERNER MILLENNIUM Bilirubin, Total 0.2 0.2 - 1.3 mg/dL CERNER MILLENNIUM Bilirubin, Direct 0.1 0.0 - 0.3 mg/dL CERNER MILLENNIUM Blood specimen (specimen) 12/20/2011 12:38 PM EST 12/20/2011 12:51 PM EST Narrative Resulting Agency Comment Spec In Lab Isaiah Mcpherson MD [facility] documented in this encounter Visit Diagnoses Diagnosis Fibromyalgia- Primary Mylagia and myositis, unspecified Depression Depressive disorder, not elsewhere classified Rheumatoid arthritis(714.0) Rheumatoid arthritis Iron deficiency anemia due to chronic blood loss Iron deficiency anemia secondary to blood loss (chronic) Sleep disturbance Sleep disturbance, unspecified documented in this encounter Care Teams Primer Supervisor Relationship Specialty Start Date End Date Jennifer Anaya APRN [address] [facility] [place] [address] PCP - General 08/17/11 01/03/17 documented as of this encounter
--- OUTSIDE RECORDS SUMMARY | 2024-06-19 00:23 | XMS_ITS | Encounter Summary ---
Author Organization [facility] [place] [address] Care Team Providers Care Clamp Truck Driver Name Role Phone Jennifer Anaya Erlinda HINOJOSA Primary Care Provider [phone]- [phone] Reason for Visit * Reason Onset Date Comments Other 07/14/2013 flare Encounter Details Date Type Department Care Team (Late st Contact Info) Description 07/14/2013 Tele[place] [phone] Maribel Escalante RN Other (flare) Social History Tobacco Use Types Packs/Day Years Used Date Smoking Tobacco: Former Sex and Gender Information Value Date Recorded Sex Assigned at Not on file Gender Identity Not on file Sexual Orientation Not on file documented as of this encounter Miscellaneous Notes * Telephone Encounter - Maribel Escalante RN - 07/17/2013 10:09 AM EDT Can she come in next Sat at 11? In the meantime, she can go on Prednisone to cool things down. Is she willing to do that? If so, 20 mg a day. It may help with the eyes, although we usually use higherdoses for that. Thanks, CB Called Crystal and let her know Dr. Mcpherson can see her on 07/24 at 11:00. She said that would be great. She would also like to try the prednisone, she has asked that it be sent to [facility] in [place]. She says she doesn't want to have to stay on it forever, told her the plan would be to take it until things improve and then taper off, but she will discuss further with Dr. Mcpherson at [facility]. She verbalized understanding. * Telephone Encounter - Maribel Escalante RN - 07/14/2013 10:02 AM EDT Crystal is calling because she was recently diagnosed with uveitis by her eye doctor. This was aboutthree weeks ago, since that time she seems to have gone into a flare. Her wrists are sore and her chest hurts. She is on prednisone eye drops hourly, but not seeing much benefit and Atropine eye drops. She is scared about the diagnosis of uveitis and what it means for her RA. She has an appt with in July. Told her I would check with him and see what his thoughts are. In the meantime asked her to have her eye doctor fax us visit notes for him to review. documented in this encounter Plan of Treatment Upcoming Encounters Date Type Department Care Team (Late st Contact Info) Description 07/21/2024 1:00 PM EDT Office [place] [address] Isaiah Mcpherson MD [facility] [place] [address] documented as of this encounter Visit Diagnoses Not on filedocumented in this encounter Care Teams Clamp Truck Driver Relationship Specialty Start Date End [place] [address] PCP - General 08/17/11 01/03/17 documented as of this encounter
--- OUTSIDE RECORDS SUMMARY | 2024-06-19 00:23 | XMS_ITS | Encounter Summary ---
Author Organization [facility] [place] [address] Care Team Providers Care Circulation Sales Representative Name Role Phone Magda Lebron MD Primary Care Provider [phone] Reason for Visit * Reason Comments Rheumatoid Arthritis Encounter Details Date Type Department Care Team (Late st Contact Info) Description 04/19/2011 1:45 PM EDT [place] [phone] Isaiah Mcpherson MD [facility] [place] [address] RA (rheumatoid arthritis) (Primary Dx) Discharge Disposition: Home Social History Tobacco Use Types Packs/Day Years Used Date Smoking Tobacco: Never Assessed Sex and Gender Information Value Date Recorded Sex Assigned at Not on file Gender Identity Not on file Sexual Orientation Not on file documented as of this encounter Last Filed Vital Signs Vital Sign Reading Time Taken Comments Blood Pressure 104/43 04/19/2011 1:57 PM EDT Pulse 54 04/19/2011 1:57 PM EDT Temperature 36.7 ??C (98.1 ??F) 04/19/2011 1:57 PM ED T Respiratory Rate - - Oxygen Saturation 100% 04/19/2011 1:57 PM EDT Inhaled Oxygen Concentration - - Weight 68 kg (150 lb) 04/19/2011 1:57 PM EDT Height 157.5 cm (5' 2) 04/19/2011 1:57 PM EDT Body Mass Index 27.44 04/19/2011 1:57 PM EDT documented in this encounter Progress Notes * Isaiah Mcpherson MD - 04/19/2011 3:00 PM EDT Rheumatology Clinic: Dr. Mcpherson 04/19/2011 [id number] Crystal Felder is seen in follow-up of her rheumatoid arthritis. The last time she was in, we addedHumira to her methotrexate and Plaquenil. She now reports that she is dramatically better. She is actually smiling today for the first time in a long time on her visits here. The swelling has gone down in her left wrist and left ankle. She's has no limitation of function at home. She is still tired. A lot of that might be related to taking care of her father. She did have lab work back on 03/19/2011 that was essentially normal, including a normal hematocrit. She still has some achiness in the left wrist and ankle, but that is greatly improved, and she is very happy with the situation. She's had no side effects with the Humira. We went over the concerns about infection while on TNF inhibitors, and she seemed to understand that well. Current outpatient prescriptions ordered prior to encounter Medication Sig Dispense Refill ??? folic acid (FOLVITE) 1 mg tablet Take 1 tablet by mouth daily. 90 tablet 3 ??? hydroxychloroquine (PLAQUENIL) 200 mg tablet Take 1 tablet by mouth 2 times daily. 60 tablet 5 ??? Adalimumab (HUMIRA PEN) 40 mg/0.8 mL PnKt 40 MG/0.8 ML SQ Q other WEEK ??? CIS Free Text Med - Vitamin D ??? sertraline (ZOLOFT) 100 mg tablet 100 MG = 1 Tablet(s), PO, QHS ??? clonAZEpam (KLONOPIN) 1 mg tablet 1 MG = 1 Tablet(s), PO, Once daily as needed ??? GLUCOSAMINE SULFATE-MSM ORAL ??? ferrous sulfate 325 mg (65 mg Iron) tablet ??? methotrexate 2.5 mg tablet 17.5 MG = 7 Tablet(s), PO, QWEEK ??? amitriptyline (ELAVIL) 10 mg tablet 10 M-2 Tablet(s), PO, QHS ??? ibuprofen (ADVIL;MOTRIN) 800 mg tablet ??? DOCOSAHEXANOIC ACID/EPA (FISH OIL ORAL) ??? multivitamin (THERAGRAN) tablet Physical Exam: She looks well. She is in good spirits. Blood pressure 104/43, pulse 54, temperature 36.7 ??C (98.1 ??F), height 1.575 m (5' 2), weight 68.04 kg (150 lb), SpO2 100.00%. Skin: Clear. HEENT: Unremarkable. Lungs: Clear. Heart: Regular rhythm and rate without murmur, gallop, or rub. Abdomen: Benign. No masses, tenderness, or organomegaly. Extremities: No edema. Good distal pulses. Musculoskeletal: She may have a small amount of residual synovitis in the left ulnar wrist. Otherwise, she has some pain on range of motion of the left ankle, with decreased subtalar motion, and the pain is localized laterally. The ankle is slightly warm. The rest of her exam is benign. Neuro: Grossly intact. Assessment: I think she doing great. I think she has some residual very low- grade synovitis in her left wrist and left ankle, but this is very tolerable. I expect that she still will get additional benefit from the Humira, as she's only been on it less than 3 months. I told her to go ahead and stopthe Plaquenil, but continue the methotrexate. I'll see her in followup in 4 months, but she can call if she has any problems in the interim. Over 20 minutes of the 25 minute follow-up were spent discussing these problems and their treatmentoptions in [id number] counseling. documented in this encounter Plan of Treatment Upcoming Encounters Date Type Department Care Team (Late st Contact Info) Description 07/21/2024 1:00 PM EDT Office [facility] [place] [address] Isaiah Mcpherson MD [facility] [place] [address] documented as of this encounter Visit Diagnoses Diagnosis RA (rheumatoid arthritis)- Primary Rheumatoid arthritis documented in this encounter Care Teams Circulation Sales Representative Relationship Specialty Start Date End Date Magda Lebron MD [address] [place] [address] PCP - General 09/19/10 08/16/11 documented as of this encounter
--- OUTSIDE RECORDS SUMMARY | 2024-06-19 00:23 | XMS_ITS | Encounter Summary ---
Author Organization [facility] [place] [address] Care Team Providers Care Casino Cashier Name Role Phone Jennifer Anaya APRN Primary Care Provider [phone] Reason for Visit * Reason Comments Medication Refill Encounter Details Date Type Department Care Team (Late st Contact Info) Description 05/15/2012 [place] [address] Arnulfo Beltran MD [facility] [place] [address] Social History Tobacco Use Types Packs/Day Years Used Date Smoking Tobacco: Former Sex and Gender Information Value Date Recorded Sex Assigned at Not on file Gender Identity Not on file Sexual Orientation Not on file documented as of this encounter Plan of Treatment Upcoming Encounters Date Type Department Care Team (Late st Contact Info) Description 07/21/2024 1:00 PM EDT [place] [address] Isaiah Mcpherson MD [facility] [place] [address] documented as of this encounter Visit Diagnoses Not on filedocumented in this encounter Care Teams Casino Cashier Relationship Specialty Start Date End Date [place] [address] [place] [address] PCP - General 08/17/11 01/03/17 documented as of this encounter
--- OUTSIDE RECORDS SUMMARY | 2024-06-19 00:23 | XMS_ITS | Encounter Summary ---
[place] [address] Care Team Providers Care Curriculum Director Name Role Phone Jennifer Anaya Erlinda HINOJOSA Primary Care Provider [phone]- [phone] Reason for Visit * Reason Onset Date Comments Prior Authorization 06/23/2013 Humira-Appro rose Encounter Details Date Type Department Care Team (Late st Contact Info) Description 06/23/2013 [place] [phone] Angélica Baker Prior Authorization (Humira-Approved) Social History Tobacco Use Types Packs/Day Years Used Date Smoking Tobacco: Former Sex and Gender Information Value Date Recorded Sex Assigned at Not on file Gender Identity Not on file Sexual Orientation Not on file documented as of this encounter Miscellaneous Notes * Telephone Encounter - Angélica Baker - 06/23/2013 12:56 PM EDT Medication Prior Authorization Isaiah Mcpherson MD Medication name/dose/directions: Humira Pen Kit/ 40mg/0.8/ Inject 0.8 mLs subcutaneously every 14 days. Rationale for request: Rheumatoid Arthritis Health plan: [employer] Authorizing packaging sales representative name: Faxed to health plan on: 06/10/13 Health plan decision: Approved Quantity approved: Authorization number: Start date: 06/11/2013 End date: 06/11/2014 Patient notified? yes Pharmacy notified? yes documented in this encounter Plan of Treatment Upcoming Encounters Date Type Department Care Team (Late st Contact Info) Description 07/21/2024 1:00 PM EDT Office [place] [address] Isaiah Mcpherson MD [facility] [place] [address] documented as of this encounter Visit Diagnoses Not on filedocumented in this encounter Care Teams Curriculum Director Relationship Specialty Start Date [place] [address] PCP - General 08/17/11 01/03/17 documented as of this encounter
--- OUTSIDE RECORDS SUMMARY | 2024-06-19 00:23 | XMS_ITS | Encounter Summary ---
Author Organization [facility] [place] [facility] [address] Care Team Providers Care Chart Changer Name Role Phone Jennifer Anaya Erlinda HINOJOSA Primary Care Provider [phone]- [phone] Reason for Visit * Reason Onset Date Comments Other 02/16/2013 labs Encounter Details Date Type Department Care Team (Late st Contact Info) Description 02/16/2013 [place] [phone] Maribel Caba, RN Other (labs) Social History Tobacco Use Types Packs/Day Years Used Date Smoking Tobacco: Former Sex and Gender Information Value Date Recorded Sex Assigned at Not on file Gender Identity Not on file Sexual Orientation Not on file documented as of this encounter Miscellaneous Notes * Telephone Encounter - Maribel Caba RN - 02/16/2013 11:34 AM EDT Called Crystal and relayed Dr. Redmond msg below to her. She verbalized understanding of information. * Telephone Encounter - Maribel Caba RN - 02/16/2013 11:07 AM EDT Message copied by MARIEBL CABA on SatFeb 16, 2013 11:07 AM ------ Message from: ISAIAH REDMOND Created: Poonam Feb 15, 2013 9:31 AM Please call. Labs look okay, except she is iron deficient. Why doesn't she try the Vitron-C iron tablets. They are over the counter. Thanks, CB documented in this encounter Plan of Treatment Upcoming Encounters Date Type Department Care Team (Late st Contact Info) Description 07/21/2024 1:00 PM EDT Office [place] [address] Isaiah Redmond MD [facility] [place] [address] documented as of this encounter Visit Diagnoses Not on filedocumented in this encounter Care Teams Chart Changer Relationship Specialty Start Date [place] [address] PCP - General 08/17/11 01/03/17 documented as of this encounter
--- OUTSIDE RECORDS SUMMARY | 2024-06-19 00:23 | XMS_ITS | Encounter Summary ---
Author Organization [facility] [place] [address] Care Team Providers Care Application Integration Architect Name Role Phone Magda Lebron MD Primary Care Provider [phone] Encounter Details Date Type Department Care Team (Late st Contact Info) Description 10/18/2010 [place] [address] Isaiah Mcpherson MD [facility] [place] [address] Social History Tobacco Use Types Packs/Day Years [...] 1:00 PM EDT Office [place] [phone] Isaiah Mcpherson MD [facility] [place] [address] documented as of this encounter Procedures Procedure Name Priority Date/Time Associated Diagnosis Comments ANTI-CYCLIC CITRULLINATED PEPTIDE AB Routine 10/18/2010 3:21 PM EST DIFFERENTIAL, AUTOMATED Routine 10/18/2010 3:21 PM EST IRON AND TIBC Routine 10/18/2010 3:21 PM EST SEDIMENTATION RATE Routine 10/18/2010 3: 21 PM EST CBC (WITH DIFF) Routine 10/18/2010 3:21 PM EST RHEUMATOID FACTOR, QUANT Routine 10/18/2010 3:21 PM EST CRP, CARDIAC RISK (HS CRP) Routine 10/18/2010 3:21 PM EST TSH Routine 10/18/2010 3:21 PM EST FERRITIN Routine 10/18/2010 3:21 PM EST COMPREHENSIVE METABOLIC PANEL Routine 10/18/2010 3:21 PM EST documented in this encounter Results * (ABNORMAL) CYCLIC CITRULLINATED PEPTIDE (10/18/2010 3:21 PM EST) Pathologist [facility] Cyclic Citrulline Peptide 123.8(H) <=5.0 u/ml [facility] Blood specimen (specimen) 10/18/2010 3:21 PM EST 10/23/2010 8:20 AM EST Isaiah Mcpherson MD CHEMISTRY ORDERAB LES Performing Organization Address [facility] Co de Phone Number [facility] * RHEUMATOID FACTOR (10/18/2010 3:21 PM EST) Pathologist [facility] Rheumatoid Factor 13 <=14 IU/mL [facility] Blood specimen (specimen) 10/18/2010 3:21 PM EST 10/18/2010 3:30 PM EST Isaiah Mcpherson MD CHEMISTRY ORDERAB LES [facility] * (ABNORMAL) FERRITIN (10/18/2010 3:21 PM EST) Ferritin 12(L) 15 - 150 ng/mL [facility] Comment: Pediatric reference ranges not verified at [facility], interpret with caution. Reference ranges for females greater than 50 years of age approach values for men, i.e., 30-400 ng/mL. Blood specimen (specimen) 10/18/2010 3:21 PM EST 10/18/2010 3:30 PM EST Isaiah Mcpherson MD CHEMISTRY ORDERAB LES [facility] * TSH (10/18/2010 3:21 PM EST) Thyroid Stimulating Hormone 1.78 0.27 - 4.20 mcIU/mL [facility] Comment: Cord Blood Reference Range: ??0.35 23.00 uIU/mL Blood specimen (specimen) 10/18/2010 3:21 PM EST 10/18/2010 3:30 PM EST Isaiah Mcpherson MD CHEMISTRY ORDERAB LES Performing Organization Address [facility] Co de Phone Number [facility] * (ABNORMAL) COMPREHENSIVE METABOLIC PANEL (NON-FASTING) (10/18/2010 3:21 PM EST) Glucose 94 <=199 mg/dL [facility] Comment:Diabetes: >=200 mg/d L plus symptoms Blood Urea Nitrogen 12 8 - 18 mg/dL [facility] Creatinine 0.60(L) 0.70 - 1.20 mg/dL [facility] Sodium 139 135 - 145 mmol/L [facility]ERNER [...] 5 - 15 mmol/L [facility] Calcium 9.4 8.5 - 10.5 mg/dL [facility] Protein, Total 7.0 6.4 - 8.3 gm/dL [facility] Albumin 4.4 3.2 - 5.2 gm/dL [facility] Aspartate Aminotransferase 25 0 - 30 unit/L [facility] Alanine Aminotransferase 20 0 - 30 unit/L [facility] Alkaline [...] disease. References: http://nkdep.nih.gov/resources/NKDEP_Suggestn4Labs_0606_508.pdf http://www.kidney.org/professionals/kls/pdf/faq_gfr.pdf Blood specimen (specimen) 10/18/2010 3:21 PM EST 10/18/2010 3:30 PM EST Isaiah Mcpherson MD CHEMISTRY ORDERAB LES [facility] T[facility] * HIGH SENSITIVITY CRP (10/18/2010 3:21 PM EST) Pathologist [facility] C-Reactive Protein High Sensitivity 0.8 mg/L [facility] Comment: Interpretations: 1) For cardiac risk [...] of coronary risk information. References: 1. Yue MORENO et. al. ??AHA/CDC Scientific Statement: Markers of Inflammation and Cardiovascular Disease. ??Circulation 2003; 107:499-511 2. Ridker PM. ??Clinical applications of C-reactive protein for cardiovascular disease detection and prevention. ??Circulation 2003; 107:363-369 Blood specimen (specimen) 10/18/2010 3:21 PM EST 10/18/2010 3:30 PM EST Isaiah Mcpherson MD CHEMISTRY ORDERAB LES [facility] * SEDIMENTATION RATE, AUTOMATED (10/18/2010 3:21 PM EST) [facility] Sedimentation Rate Automated 11 0 - 20 mm/hr [facility] Blood specimen (specimen) 10/18/2010 3:21 PM EST 10/18/2010 3:30 PM EST Isaiah Mcpherson MD HEMATOLOGY ORDERA BLES [facility] * IRON AND TIBC (10/18/2010 3:21 PM EST) Iron 119 30 - 150 mcg/dL [facility] TIBC 369 250 - 450 mcg/dL [facility] Iron Saturation 32 20 - 50 % [facility] Blood specimen (specimen) 10/18/2010 3:21 PM EST 10/18/2010 3:30 PM EST Isaiah Mcpherson MD CHEMISTRY ORDERAB LES [facility] * (ABNORMAL) REFLEX LAB-A-DIFF (10/18/2010 3:21 PM EST) Neutrophil % 71.4(H) 34.0 - 71.0 % [facility] Neutrophil Absolute 5.08 1.50 - 6.30 x10(3)/mc L [facility] Lymph % 18.1(L) 19.0 - 53.0 % [facility] Lymphocytes Abs 1.3 1.0 - 3.6 x10(3)/mc L [facility] Monocyte % 8.7 4.0 - 13.0 % [facility]ILLENNI[facility] Monocyte Abs 0.6 0.2 - 1.0 x10(3)/mc L [facility]ILLENNI[facility] Eos % 1.4 0.0 - 7.0 % [facility]ILLENNI[facility] Eosinophils Abs 0.1 0.0 - 0.5 x10(3)/mc L [facility]ILL[facility] Basophil % 0.3 0.0 - 2.0 % [facility]ILLENNI[facility] Baso Absolute 0.0 0.0 - 0.2 x10(3)/mc L [facility] Immature Gran % 0.10 0.00 - 0.66 % [facility] Comment: Immature granulocytes(IG's)percentage and absolute count will include metamyelocytes, myelocytes, and promyelocytes. Blood smears from CBC's yielding IG's will be scanned manually for concordance. If this scan disagrees with the automated IG or if promyelocytes are noted, a manual differential will be performed. Immature Gran Absolute 0.01 0.00 - 0.05 x10(3)/mc L [facility] Blood specimen (specimen) 10/18/2010 3:21 PM EST 10/18/2010 3:30 PM EST Isaiah Mcpherson MD HEMATOLOGY ORDERA BLES Performing Organization Address [facility] de Phone Number [facility] * (ABNORMAL) CBC (10/18/2010 3:21 PM EST) White Blood Cell 7.1 4.0 - 10.0 x10(3)/mc L [facility] Red Blood Cell 3.74(L) 3.93 - 5.22 x10(6)/mc L [facility] Hemoglobin 11.5 11.2 - 15.7 gm/dL [facility]ILL[facility]NI[facility] Hematocrit 34.9 34.0 - 45.0 % [facility] MILLENNI[facility] Mean Cell Volume 93.3 79.0 - 94.0 fL [facility] MILLENNI[facility] Mean Cell Hemoglobin 30.7 26.6 - 32.2 pg [facility] MILLENNIUM Mean Cell Hemoglobin Concentration 33.0 32.0 - 36.5 gm/dL [facility] MILLENNIUM Platelet 327 145 - 370 x10(3)/mc L [facility] MILLENNIUM RDW Standard Deviation 43.9 35.0 - 46.0 fL [facility]ILLENNI[facility] RDW coefficient of variation 13.0 10.9 - 14.4 % [facility]ILLENNIUM Mean Platelet Volume 9.6 9.0 - 12.0 fL [facility] Blood specimen (specimen) 10/18/2010 3:21 PM EST 10/18/2010 3:30 PM EST Isaiah Mcpherson MD HEMATOLOGY ORDERA BLES Performing Organization Address [facility] de Phone Number MARBELLA STRONG documented in this encounter Visit Diagnoses Not on filedocumented in this encounter Care Teams Application Integration Architect Relationship Specialty Start Date End Date Magda Lebron MD [address] [place] [address] PCP - General 09/19/10 08/16/11 documented as of this encounter
--- OUTSIDE RECORDS SUMMARY | 2024-06-19 00:23 | XMS_ITS | Encounter Summary ---
Author Organization [facility] [place] [address] Care Team Providers Care Eyelet Maker Name Role Phone Purnima Anayakirstin Coffey APRN Primary Care Provider +1- [phone] Reason for Visit * Reason Onset Date Comments Pain 05/31/2011 ? due to coming off plaquenil Encounter Details Date Type Department Care Team (Late st Contact Info) Description 05/31/2011 Telephone [place] [phone] Isaiah Mcpherson MD [facility] [place] [place] [address] [place] [address] Pain (? due to coming off plaquenil) Social History Tobacco Use Types Packs/Day Years Used Date Smoking Tobacco: Never Assessed Sex and Gender Information Value Date Recorded Sex Assigned at Not on file Gender Identity Not on file Sexual Orientation Not on file documented as of this encounter Miscellaneous Notes * Telephone Encounter - Rama Kwan LPN - 05/31/2011 4:48 PM EDT Patient states she is sore lately, noticed it shortly after stopping Plaquenil. Her left ankle and wrist are Painful, gets pain when even trying to lift a coffee cup. She is also fatigued. Doesn't know if it is due to Coming off plaquenil or something else, but said she was doing fine previously. Has been on Humira 3-4 months and the methotrexate a long time. She questions if she should go back on the Plaquenil. Told her I would ask Dr Mcpherson to see what he wants her to do. documented in this encounter Plan of Treatment Upcoming Encounters Date Type Department Care Team (Late st Contact Info) Description 07/21/2024 1:00 PM EDT Office Visit [place] [address] Isaiah Mcpherson MD [facility] [place] [address] documented as of this encounter Visit Diagnoses Not on filedocumented in this encounter Care Teams Eyelet Maker Relationship Specialty Start Date End [place] [address] PCP - General 08/17/11 01/03/17 documented as of this encounter
--- OUTSIDE RECORDS SUMMARY | 2024-06-19 00:23 | XMS_ITS | Encounter Summary ---
Author Organization [facility] [place] [address] Care Team Providers Care Hydraulic Bull Riveter Operator Name Role Phone Jennifer Anaya APRN Primary Care Provider +1- [phone] Reason for Visit * Reason Comments Medication Refill Encounter Details Date Type Department Care Team (Late st Contact Info) Description 04/04/2013 [place] [address] Isaiah Mcpherson MD [facility] [place] [address] [place] [address] Social History Tobacco Use Types Packs/Day Years Used Date Smoking Tobacco: Former Sex and Gender Information Value Date Recorded Sex Assigned at Not on file Gender Identity Not on file Sexual Orientation Not on file documented as of this encounter Plan of Treatment Upcoming Encounters Date Type Department Care Team (Late st Contact Info) Description 07/21/2024 1:00 PM EDT [place] [address] Isaiah Mcpherson MD [facility] [place] [place] [address] documented as of this encounter Visit Diagnoses Not on filedocumented in this encounter Care Teams Hydraulic Bull Riveter Operator Relationship Specialty Start Date End Date Jennifer Anaya [place] [address] [place] [address] PCP - General 08/17/11 01/03/17 documented as of this encounter
--- OUTSIDE RECORDS SUMMARY | 2024-06-19 00:23 | XMS_ITS | Encounter Summary ---
Author Organization [facility] [address] Care Team Providers Care Process Planner Name Role Phone Purnima Anayakirstin Coffey APRN Primary Care Provider +1- [phone] Reason for Visit * Reason Onset Date Comments Other 01/28/2013 labs Encounter Details Date Type Department Care Team (Late st Contact Info) Description 01/28/2013 Telephone [place] [phone] Maribel Escalante RN Other (labs) Social History Tobacco Use Types Packs/Day Years Used Date Smoking Tobacco: Former Sex and Gender Information Value Date Recorded Sex Assigned at Not on file Gender Identity Not on file Sexual Orientation Not on file documented as of this encounter Miscellaneous Notes * Telephone Encounter - Maribel Escalante RN - 01/28/2013 10:15 AM EDT Called Crystal to find out if she had more recent labs drawn than 05/2012. She seemed a little confused on the phone. She said she thought something could be faxed over. She said she was wondering whenshe was supposed to come back and see Dr. Mcpherson. Last visit was 12/20/11 with f/u in 5 months. Crystal says, I must have walked out and forgot to schedule another visit. Explained to her that labs need to be drawn every 3 months for patients on mtx. She verbalized understanding and [facility]. She is concerned about her renewal because the mtx is helping her and she doesn't want to stop taking it. Told her Dr. Mcpherson would have to make the decision to renew or not. documented in this encounter Plan of Treatment Upcoming Encounters Date Type Department Care Team (Late st Contact Info) Description 07/21/2024 1:00 PM EDT Office Visit [place] [address] Isaiah Mcpherson MD [facility] [address] documented as of this encounter Visit Diagnoses Not on filedocumented in this encounter Care Teams Process Planner Relationship Specialty Start Date [place] [address] PCP - General 08/17/11 01/03/17 documented as of this encounter
--- OUTSIDE RECORDS SUMMARY | 2024-06-19 00:23 | XMS_ITS | Encounter Summary ---
Author Organization [facility] [place] [address] Care Team Providers Care Bridge Engineer Name Role Phone Jennifer Anaya APRN Primary Care Provider [phone] Reason for Visit * Reason Onset Date Comments Medication Refill 12/31/2012 Encounter Details Date Type Department Care Team (Late st Contact Info) Description 12/31/2012 [place] [address] Isaiah Mcpherson MD [facility] [place] [address] Fibromyalgia (Primary Dx) Social History Tobacco Use Types [...] 1:00 PM EDT Office [place] [address] Isaiah Mcpherson MD [facility] [place] [address] documented as of this encounter Visit Diagnoses Diagnosis Fibromyalgia- Primary Mylagia and myositis, unspecified documented in this encounter Care Teams Bridge Engineer Relationship Specialty Start Date End Date Jennifer Anaya [place] [address] [place] [address] PCP - General 08/17/11 01/03/17 documented as of this encounter
--- OUTSIDE RECORDS SUMMARY | 2024-06-19 00:23 | XMS_ITS | Encounter Summary ---
Author Organization [facility] [place] [address] Care Team Providers Care Greek Professor Name Role Phone Jennifer Anaya Erlinda HINOJOSA Primary Care Provider [phone]- [phone] Encounter Details Date Type Department Care Team (Late st Contact Info) Description 04/23/2011 Orders Only [facility] [address] [place] [address] Isabella Wu MD [facility] [place] [address] Abnormal mammogram, unspecified (Primary Dx) Social History Tobacco Use Types [...] 1:00 PM EDT Office [place] [address] Isaiah Mcpherson MD [facility] [place] [address] documented as of this encounter Results * Mammo call back diagnostic extra view unilateral (05/01/2011 2:36 PM EDT) Anatomical Region Laterality Modality Breast N/A Mammography 05/01/2011 2:36 PM EDT Narrative 05/01/2011 5:05 PM EDT DIAGNOSTIC RIGHT MAMMOGRAPHY ON 7/5/11: ?? CLINICAL INDICATION: Area of focal asymmetry [...] this encounter Visit Diagnoses Diagnosis Abnormal mammogram, unspecified- Primary Abnormal mammogram, unspecified documented in this encounter Care Teams Greek Professor Relationship Specialty Start Date End Date [place] [address] PCP - General 08/17/11 01/03/17 documented as of this encounter
--- OUTSIDE RECORDS SUMMARY | 2024-06-19 00:23 | XMS_ITS | Encounter Summary ---
Author Organization [facility] [place] [address] Care Team Providers Care Silver Brazer Name Role Phone Jennifer Anaya Erlinda HINOJOSA Primary Care Provider [phone] Reason for Visit * Reason Onset Date Comments Other 12/24/2011 lab results and medication question per Dr. Mcpherson Encounter Details Date Type Department Care Team (Late st Contact Info) Description 12/24/2011 Telephone [place] [phone] Louann Duffy LPN Other (lab results and medication question per Dr. Mcpherson) Social History Tobacco Use Types Packs/Day Years Used Date Smoking Tobacco: Former Sex and Gender Information Value Date Recorded Sex Assigned at Not on file Gender Identity Not on file Sexual Orientation Not on file documented as of this encounter Miscellaneous Notes * Telephone Encounter - Louann Duffy LPN - 12/24/2011 1:23 PM EST Called patient (per Dr. Mcpherson request) to let her know her liver tests were all normal. Dr. Mcpherson also wanted to know if the trazadone is helping with her sleep. Patient stated she feels like she hasa bit of increased anxiety since taking the trazadone, but that she has only been taking it for 4-5days. Stated she would continue to see if it subsides. I informed her I would pass this informationalong to Dr. Mcpherson. documented in this encounter Plan of Treatment Upcoming Encounters Date Type Department Care Team (Late st Contact Info) Description 07/21/2024 1:00 PM EDT Office [place] [address] Isaiah Mcpherson MD [facility] [place] [address] documented as of this encounter Visit Diagnoses Not on filedocumented in this encounter Care Teams Silver Brazer Relationship Specialty Start Date [place] [address] PCP - General 08/17/11 01/03/17 documented as of this encounter
--- OUTSIDE RECORDS SUMMARY | 2024-06-19 00:23 | XMS_ITS | Encounter Summary ---
Author Organization [facility] [place] [address] Care Team Providers Care Electro Tech Name Role Phone Jennifer Anaya APRN Primary Care Provider [phone]- [phone] Reason for Visit * Reason Comments Medication Refill Encounter Details Date Type Department Care Team (Late st Contact Info) Description 2013 Ref[place] [address] Isaiah Mcpherson MD [facility] [place] [address] Social History Tobacco Use Types Packs/Day Years Used Date Smoking Tobacco: Former Sex and Gender Information Value Date Recorded Sex Assigned at Not on file Gender Identity Not on file Sexual Orientation Not on file documented as of this encounter Plan of Treatment Upcoming Encounters Date Type Department Care Team (Late st Contact Info) Description 07/21/2024 1:00 PM EDT Office [place] [address] Isaiah Mcpherson MD [facility] [place] [address] documented as of this encounter Visit Diagnoses Not on filedocumented in this encounter Care Teams Electro Tech Relationship Specialty Start Date End Date Jennifer [place] [address] [place] [address] PCP - General 08/17/11 01/03/17 documented as of this encounter
--- OUTSIDE RECORDS SUMMARY | 2024-06-19 00:23 | XMS_ITS | Encounter Summary ---
Author Organization [facility] [place] [address] Care Team Providers Care Assembler Corncob Pipes Name Role Phone Jennifer Anaya Erlinda HINOJOSA Primary Care Provider [phone]- [phone] Reason for Visit * Reason Onset Date Comments Medication Refill 11/23/2011 MTX Encounter Details Date Type Department Care Team (Late st Contact Info) Description 11/23/2011 [place] [phone] Louann Duffy LPN Social History Tobacco Use Types Packs/Day Years Used Date Smoking Tobacco: Former Sex and Gender Information Value Date Recorded Sex Assigned at Not on file Gender Identity Not on file Sexual Orientation Not on file documented as of this encounter Miscellaneous Notes * Telephone Encounter - Louann Duffy LPN - 11/23/2011 4:21 PM EST Telephoned in MTX renewal RX, original approved Sunday 11/19 not received by pharmacy. documented in this encounter Plan of Treatment Upcoming Encounters Date Type Department Care Team (Late st Contact Info) Description 07/21/2024 1:00 PM EDT Office [place] [phone] Isaiah Mcpherson MD [facility] [place] [address] documented as of this encounter Visit Diagnoses Not on filedocumented in this encounter Care Teams Assembler Corncob Pipes Relationship Specialty Start Date End Date Jennifer [place] [address] [place] [address] PCP - General 08/17/11 01/03/17 documented as of this encounter
--- OUTSIDE RECORDS SUMMARY | 2024-06-19 00:23 | XMS_ITS | Encounter Summary ---
Author Organization [facility] [place] [address] Care Team Providers Care Fiscal Services Director Name Role Phone Magda Lebron MD Primary Care Provider [phone] Encounter Details Date Type Department Care Team (Late st Contact Info) Description 10/18/2010 2:15 PM EST Follow-[place] [address] Isaiah Mcpherson MD [facility] [place] [address] Discharge Disposition: Home Social History Tobacco Use [...] 1:00 PM EDT Office Visit [place] [address] Isaiah Mcpherson MD [facility] [place] [address] documented as of this encounter Visit Diagnoses Not on filedocumented in this encounter Care Teams Fiscal Services Director Relationship Specialty Start Date End Date Magda Lebron MD [address] [place] [address] PCP - General 09/19/10 08/16/11 documented as of this encounter
--- OUTSIDE RECORDS SUMMARY | 2024-06-19 00:23 | XMS_ITS | Encounter Summary ---
Author Organization [facility] [place] [address] Care Team Providers Care Forestry Instructor Name Role Phone Jennifer Anaya Erlinda HINOJOSA Primary Care Provider [phone]- [phone] Reason for Visit * Reason Onset Date Comments Medication Refill 10/19/2011 Encounter Details Date Type Department Care Team (Late st Contact Info) Description 10/19/2011 [place] [address] Arnulfo Beltran MD [facility] [address] [place] [address] Social History Tobacco Use Types Packs/Day Years Used Date Smoking Tobacco: Former Sex and Gender Information Value Date Recorded Sex Assigned at Not on file Gender Identity Not on file Sexual Orientation Not on file documented as of this encounter Miscellaneous Notes * Telephone Encounter - Teresita Dozier RN - 10/24/2011 10:19 AM EST Received hard copy for pt's clonazepam. Gave MD fax form to sign and to be re-faxed. documented in this encounter Plan of Treatment Upcoming Encounters Date Type Department Care Team (Late st Contact Info) Description 07/21/2024 1:00 PM EDT Office [place] [phone] Isaiah Mcpherson MD [facility] [address] documented as of this encounter Visit Diagnoses Not on filedocumented in this encounter Care Teams Forestry Instructor Relationship Specialty Start Date End [place] [address] PCP - General 08/17/11 01/03/17 documented as of this encounter
--- OUTSIDE RECORDS SUMMARY | 2024-06-19 00:23 | XMS_ITS | Encounter Summary ---
Author Organization [facility] [place] [address] Care Team Providers Care Entry Level Lab Technician Name Role Phone Magda Lebron MD Primary Care Provider [phone] Encounter Details Date Type Department Care Team (Latest Contact Info) Description 04/19/2011 12:59 PM EDT - 04/19/2011 11:59 PM EDT Hospital [place] [address] CLINIC, Magda Bullard MD [address] [place] [address] Discharge Disposition: Home Social History Tobacco Use [...] 1:00 PM EDT Office [place] [address] Isaiah Mcpherson MD [facility] [place] [address] documented as of this encounter Visit Diagnoses Not on filedocumented in this encounter Care Teams Entry Level Lab Technician Relationship Specialty Start Date End Date Magda Lebron MD [address] [place] [address] PCP - General 09/19/10 08/16/11 documented as of this encounter
--- OUTSIDE RECORDS SUMMARY | 2024-06-19 00:23 | XMS_ITS | Encounter Summary ---
Author Organization [facility] [place] [address] Care Team Providers Care Painter And Body Mechanic Apprentice Name Role Phone Magda Lebron MD Primary Care Provider [phone] Reason for Visit * Reason Onset Date Comments Medication Refill 04/03/2011 Encounter Details Date Type Department Care Team (Late st Contact Info) Description 04/03/2011 [place] [address] Isaiah Mcpherson MD [facility] [place] [address] Social History Tobacco Use Types Packs/Day Years [...] 1:00 PM EDT Office [place] [address] Isaiah Mcpherson MD [facility] [place] [address] documented as of this encounter Visit Diagnoses Not on filedocumented in this encounter Care Teams Painter And Body Mechanic Apprentice Relationship Specialty Start Date End Date Magda Lebron MD [address] [place] [address] PCP - General 09/19/10 08/16/11 documented as of this encounter
--- OUTSIDE RECORDS SUMMARY | 2024-06-19 00:23 | XMS_ITS | Encounter Summary ---
Author Organization [facility] [place] [address] Care Team Providers Care Infection Control Specialist Name Role Phone Magda Lebron MD Primary Care Provider [phone] Reason for Visit * Reason Onset Date Comments Prior Authorization 05/22/2011 Humira Encounter Details Date Type Department Care Team (Late st Contact Info) Description 05/22/2011 Telephone [place] [address] Isaiah Mcpherson MD [facility] [place] [address] Prior Authorization (Humira) Social History Tobacco Use Types Packs/Day Years Used Date Smoking Tobacco: Never Assessed Sex and Gender Information Value Date Recorded Sex Assigned at Not on file Gender Identity Not on file Sexual Orientation Not on file documented as of this encounter Miscellaneous Notes * Telephone Encounter - Yuliet Mg - 05/22/2011 1:53 PM EDT Medication Prior Authorization Medication name/dose/directions: Adalimumab (HUMIRA PEN) 40 mg/0.8 mL PnKt 40 MG/0.8 ML SQ Q other WEEK Rationale for request: 714.0 RHEUMATOID ARTHRITIS Health plan: [place] Medicaid - [place] ID# [id number] Authorizing publications sales representative name: Faxed us approved Medici[employer] Faxed to health plan on: FOLEY 05/21/11 Health plan decision: Approved Quantity approved: Authorization number: Start date: 05/24/11 End date: 05/24/12 Patient notified? yes Pharmacy notified? yes Ana Rosa is delivering and has already started this process documented in this encounter Plan of Treatment Upcoming Encounters Date Type Department Care Team (Late st Contact Info) Description 07/21/2024 1:00 PM EDT Office [place] [address] Isaiah Mcpherson MD [facility] [place] [address] documented as of this encounter Visit Diagnoses Not on filedocumented in this encounter Care Teams Infection Control Specialist Relationship Specialty Start Date End Date Magda Lberon MD [address] [place] [address] PCP - General 09/19/10 08/16/11 documented as of this encounter
--- OUTSIDE RECORDS SUMMARY | 2024-06-19 00:23 | XMS_ITS | Encounter Summary ---
Author Organization [facility] [place] [address] Care Team Providers Care Foreign Policy Officer Name Role Phone Jennifer Anaya APRN Primary Care Provider [phone] Reason for Visit * Reason Onset Date Comments Medication Refill 04/01/2013 Encounter Details Date Type Department Care Team (Late st Contact Info) Description 04/01/2013 [place] [address] Isaiah Mcpherson MD [facility] [place] [address] RA (rheumatoid arthritis) (Primary Dx) Social History [...] 1:00 PM EDT Office [place] [address] Isaiah Mcpherson MD [facility] [place] [address] documented as of this encounter Visit Diagnoses Diagnosis RA (rheumatoid arthritis)- Primary Rheumatoid arthritis documented in this encounter Care Teams Foreign Policy Officer Relationship Specialty Start Date End Date Jennifer [place] [address] [place] [address] PCP - General 08/17/11 01/03/17 documented as of this encounter
--- OUTSIDE RECORDS SUMMARY | 2024-06-19 00:23 | XMS_ITS | Encounter Summary ---
Author Organization [facility] [place] [address] Care Team Providers Care Metal Expediter Name Role Phone Jennifer Anaya APRN Primary Care Provider [phone] Reason for Visit * Reason Onset Date Comments Medication Refill 05/21/2011 Encounter Details Date Type Department Care Team (Late st Contact Info) Description 05/21/2011 Ref[place] [address] Isaiah Mcpherson MD [facility] [address] Social History Tobacco Use Types Packs/Day Years [...] 1:00 PM EDT Office [place] [address] Isaiah Mcpherson MD [facility] [address] documented as of this encounter Visit Diagnoses Not on filedocumented in this encounter Care Teams Metal Expediter Relationship Specialty Start Date End Date Jennifer [place] [address] [place] [address] PCP - General 08/17/11 01/03/17 documented as of this encounter
--- OUTSIDE RECORDS SUMMARY | 2024-06-19 00:24 | XMS_ITS | Encounter Summary ---
Author Organization [facility] [address] Care Team Providers Care Solid Die Cutter Name Role Phone Mikayla Aquino MD Primary Care Provider [phone] Encounter Details Date Type Department Care Team (Late st Contact Info) Description 06/20/2009 Orders [place] [address] Justin Mclaughlin MD [facility] [place] [address] Social History Tobacco Use Types Packs/Day Years [...] 1:00 PM EDT Office [place] [address] Isaiah Mcpherson MD [facility] [place] [address] documented as of this encounter Goals Goal Patient Goal Type Associated Problems Recent Progress Patient-Stated? Author [facility] Medication Compliance and Understanding Patient Facing Action Plan Not on track( 024 11:36 AM EDT) No Mckinley Noel, [facility] Note: Reduce Joint damage and flairs, measured by number of office visits for flairs/ x-rays, follow up every 3-6 months documented as of this encounter Procedures Procedure Name Priority Date/Time Associated Diagnosis Comments SURGICAL PATHOLOGY REPORT Routine 06/20/2009 3:50 PM EDT documented in this encounter Results * Surgical Pathology Report (06/20/2009 3:50 PM EDT) Surgical Pathology Report [id number] ? Location: 4T The signing pathologist has (i) examined the relevant preparation(s) for the specimen(s) and (ii) rendered or confirmed the diagnosis(es). . ?Pathology Surgical Pathology Final Report Clinical Information Specimen Submitted: A - Duodenum mucosa rule out sprue: Second portion B - 3 mm sessile polyp: Distal sigmoid Clinical History: Iron-deficiency anemia Clinical Diagnosis: Black, tarry stools Gross Description A - Labeled/Fixativ e: Duodenum mucosa, rule out sprue, second portion, ?formalin. Qty/Size/Weight : ?Two, averaging 0.4 x 0.2 x 0.2 cm. Tissue Description: ?? Soft, alcazar-pink tissues. Sections/Proces sing: ??(T1) B - Labeled/Fixativ e: 3 mm sessile polyp, distal sigmoid, formalin. Qty/Size/Weight : ?Single, 0.2 cm in diameter. Tissue Description: ?? Soft, alcazar-pink tissue. Sections/Proces sing: ??(T1) ?vicky/PPS Microscopic Description Slides reviewed, microscopic description not recorded. Diagnosis A - Duodenum, biopsy: ? Duodenal mucosa with normal villous architecture, no ?diagnostic abnormality recognized. B - Distal sigmoid polyp: ?Hyperplastic polyp. CR-PX 06/22/09 VMS 06/22/09 Verified by: ? Vicki CASTELLON, Josh ?Pathologist ?(Electronic Signature) The attending pathologist whose signature appears on this report has reviewed all diagnostic slides and has edited the gross and/or microscopic portion of the report in rendering the final pathologic diagnosis. MARBELLA STRONG 06/20/2009 3:50 PM EDT Justin Mclaughlin MD PATHOLOGY/CYTOLOGY ORDERABLES [facility] documented in this encounter Visit Diagnoses Not on filedocumented in this encounter Care Teams Solid Die Cutter Relationship Specialty Start Date End Date Mikayla Aquino MD PCP - General Family Medicine 07/06/20 documented as of this encounter
--- OUTSIDE RECORDS SUMMARY | 2024-06-19 00:24 | XMS_ITS ---
[place] [address] Care Team Providers Care Skate Hop Name Role Phone Mikayla Aquino MD Primary Care Provider [phone] Rheumatology Status:Enrolled (Active) Start date:06/29/2021 Enrollment date:06/29/2021 Enrollment reason:Enrolled - Currently Fills with Specialty Current support & services provided:Clinical Management, Refill Management Linked medications:adalimumab (Active) Linked problems:Rheumatoid arthritis (Active) Continued Care and Services Coordination
--- NOTE | 2024-06-19 15:01 | DI.CTLCSR_ITS ---
Exam(s) CT CHEST LUNG CANCER SCREEN EXAM: CT CHEST LUNG CANCER SCREEN CLINICAL HISTORY: FORMER SMOKER, Z87.891 TECHNIQUE: Imaging Protocol: Axial computed tomography images with coronal and sagittal reformatted images were created and reviewed. Low dose screening protocol. COMPARISON: CT CT CHEST LUNG CANCER SCREEN from 04/05/2023 FINDINGS: Tracheobronchial tree: No bronchiectasis or mucus plugging. Mediastinum and Madisyn: No dominant adenopathy or fluid collection. Pulmonary parenchyma: No consolidation or dominant measurable mass. No visible emphysematous changes. Lung Nodules: Stable 3 millimeter nodule right lower lobe. Stable calcified granulomas anterior righ t upper lobe. Pleura: No effusion. No pneumothorax. Heart: The heart is not dilated. No coronary artery calcifications are seen. Aorta: Thoracic aorta non-dilated. Upper abdomen: Unremarkable. Bones: Unremarkable for age. Soft Tissues: Unremarkable. IMPRESSION: No suspicious pulmonary nodules. Lung RADS Cat 2 - Benign Appearance / Behavior: Nodules with a very low likelihood of becoming a clin ically active cancer due to size or lack of growth Lung-RADS 1.0 CATEGORIES: Category 0 - Prior chest CT exam(s) being located for comparison. Category 1 - Annual screening in 12 months. No nodules or definitely benign nodules. Category 2 - Annual screening in 12 months. Benign appearance. Nodules with low likelihood of becomin g active cancer. Category 3 - 6-month follow-up. Probably benign. Short-term follow-up suggested. Nodules with low lik elihood of becoming active cancer. Category 4A - 3-month follow-up and CT/PET if >8 mm in size. Suspicious finding. Findings which requi re additional testing. Category 4B - Findings which require additional testing and tissue sampling. Category 4X - Category 3 or 4 nodules with additional features or imaging findings that increases the suspicion of malignancy. Modifier S- Potentially clinically significant findings (non lung cancer) RADIATION DOSE DELIVERED: 28.2mGy.cm Total DLP DATA REPOSITORY: All CT scans at this facility are submitted to the National Radiology Data Registry (NRDR) Dose Index Registry (DIR) with the [employer] (A[employer]). RADIATION OPTIMIZATION: All CT scans at this facility use at least one of these dose optimization te chniques: automated exposure control; mA and/or kV adjustment per patient size (includes targeted exa ms where dose is matched to clinical indication); or iterative reconstruction.
== END 2024-06-19 00:31 ==
LOC: DI 00:11
PROVIDERS: PCP Nurse Practitioner Family; Visit Provider Family Medicine
DX: Z12.2 Encounter for screening for malignant neoplasm of respiratory organs (principal); Z87.891 Personal history of nicotine dependence
CPT/HCPCS: 71271